=== PATIENT | female | born 1955 | race Caucasian/White ===

== ENCOUNTER 2021-04-27 17:20 | Emergency (ER) | payer MEDICARE, OTHER, SELFPAY ==
--- NOTE | 2021-04-27 17:37 | ED.WOUNDLAC ---
HPI - Wound/Laceration General Chief Complaint: Skin/Abscess/Foreign Body Stated Complaint: surgery site bleeding Time Seen by Provider: 04/27/21 17:40 Source: patient and RN notes reviewed Mode of arrival: ambulatory Limitations: no limitations History of Present Illness HPI narrative: 65-year-old female presents concern for bleeding at her surgical site. Reports yesterday she had a peritoneal dialysis catheter placed in her abdomen. Reports small amount of bleeding when she left the surgery center. Reports the bleeding continued and now is collected under the dressing. She denies any purulent drainage, inflammation. Reports she is not supposed to follow-up with her surgeon until 03 May. She denies fever, body aches. Related Data Home Medications Medication Instructions Recorded Confirmed Unable to Obtain Home Medications 04/27/21 04/27/21 Allergies Allergy/AdvReac Type Severity Reaction Status Date / Time No Known Allergies Allergy Verified 04/27/21 17:44 Review of Systems Review of Systems: CONSTITUTIONAL: Denies malaise, chills, sweats, or fever. SKIN: Reports drainage under surgical site dressing All systems reviewed & are unremarkable except as noted in HPI and below PMFSH Comments At time of signature, agree with nursing past medical, surgical, social and family history. There is no relevant family history pertinent to the presenting complaint Exam Narrative: GENERAL: Well-appearing, well-nourished, and in no acute distress. HEAD: Normocephalic EYES: PERRLA ENT: Mucous membranes moist. NECK: Supple CHEST: Clear to auscultation. No respiratory distress. HEART: Regular rate and rhythm. SKIN: Warm, dry. Intact Tegaderm noted to the abdomen with a peritoneal dialysis catheter underneath, no skin erythema, induration, swelling noted. Small collection of serosanguineous fluid noted under the dressing NEURO: Alert and oriented x3. PSYCH: Normal mood and affect Course Course Emergency Course: Original dressing left intact, reinforced with ABD pad without disturbing original dressing. Patient instructed to call her surgeon tomorrow for further instructions. Patient is aware of, understands and agrees to treatment plan. Anticipatory guidance given. Patient agrees to follow-up as directed and is aware of reasons to seek care at the emergency department. Portions of this record may have been created with voice recognition software Level of Care: Express Care Visit Vital Signs Vital signs: Reviewed. MDM - Wound/Laceration MDM Narrative Medical decision making narrative: Exam findings show no acute concerns or changes; patient is non-toxic appearing and is in no distress. Patient is appropriate for outpatient treatment and follow-up. Differential Diagnosis Differential diagnosis: Likely other (Surgical site infection, dehiscence, bleeding, drainage) Critical Care Time Critical Care Time Critical Care Time: No Discharge Plan Discharge Clinical Impression: Fluid collection at surgical site Qualifiers: Encounter type: initial encounter Qualified Code(s): T88.8XXA - Other specified complications of surgical and medical care, not elsewhere classified, initial encounter Patient Disposition: Home, Self-Care Condition: Stable Instructions: General Patient Instructions Additional Instructions: Your dressing was reinforced, try to leave the original dressing undisturbed until he can follow-up with your surgeon. If you have any urgent concerns please go to the emergency room. Prescriptions: No Action Unable to Obtain Home Medications RF: 0 Follow-up/Referrals: UNKNOWN,DOCTOR [Primary Care Provider] - Time of Disposition: 17:53
[2021-04-27 17:38] VITALS: BP 104/75; PULSE 89; RESP 18; TEMP 36.6; O2SAT 100
== END 2021-04-27 17:56 | disposition home or self-care (01) ==
PROVIDERS: Emergency Provider Nurse Practitioner
DX: T88.8XXA Other specified complications of surgical and medical care, not elsewhere classified, initial encounter (principal); Z99.2 Dependence on renal dialysis; N18.6 End stage renal disease
CPT/HCPCS: 99212; G0463

== ENCOUNTER 2022-04-18 08:51 | Emergency (ER) | payer MEDICARE, OTHER, SELFPAY ==
[2022-04-18 09:09] VITALS: BP 129/88; PULSE 88; RESP 18; TEMP 36.1; O2SAT 100
--- NOTE | 2022-04-18 09:21 | ED.FEMALEGU ---
HPI - Female Genitourinary General Chief complaint: Urogenital-Female Stated complaint: uti complaint Time Seen by Provider: 04/18/22 09:21 Source: patient Mode of arrival: ambulatory Limitations: no limitations History of Present Illness HPI Narrative: 66-year-old female presents with complaint of urinary pressure, dysuria, frequency for 2-3 days. Afebrile. No flank pain. Denies abdominal pain. Patient is stage 4 kidney disease. Reports no history of urinary tract infection in the past. All systems reviewed and negative except as noted above. Related Data Allergies Allergy/AdvReac Type Severity Reaction Status Date / Time No Known Allergies Allergy Verified 04/18/22 09:04 Review of Systems Review of Systems: CONSTITUTIONAL: Denies fever, chills, or sweats. EYES: Denies visual changes, redness, or discharge. ENT: Denies rhinorrhea, congestion, sore throat, or otalgia. CARDIOVASCULAR: Denies chest pain, palpitations, or edema. RESPIRATORY: Denies cough or dyspnea. GASTROINTESTINAL: Denies abdominal pain, nausea, vomiting, or diarrhea. GENITOURINARY: Reports dysuria, bladder pressure. Denies hematuria. SKIN: Denies rash or itching. MUSCULOSKELETAL: Denies back pain, joint pain, or myalgia. NEUROLOGIC: Denies headache, numbness, or weakness. PSYCHIATRIC: Denies anxiety or depression. All other systems reviewed are negative, except as documented in HPI. PMFSH Comments At time of signature, agree with nursing past medical, surgical, social and family history. There is no relevant family history pertinent to the presenting complaint. Exam Narrative: GENERAL: This is a well-nourished, well-developed patient, in no apparent distress. HEAD: normocephalic, atraumatic. EYES: PERRL. Sclera clear/white. Vision is grossly intact. EARS: External ears normal NOSE: External nose normal NECK: Neck supple, non-tender without lymphadenopathy, masses or thyromegaly. CARDIOVASCULAR: Regular rate and rhythm without murmurs, gallops, or rubs. RESPIRATORY: Clear to auscultation. Breath sounds equal bilaterally. No wheezes, rales, or rhonchi. SKIN: warm, Dry, intact with no suspicious lesions or rash, good texture and turgor. NEURO: awake, alert, and oriented to person, place and time. There were no obvious focal neurologic abnormalities. EXTREMITIES: No joint tenderness, effusion, or edema noted. BACK: No CVA tenderness. Course Course Level of Care: Express Care Visit Vital Signs Vital signs: Vital Signs Temperature 36.1 C L 04/18/22 09:09 Pulse Rate 88 04/18/22 09:09 Respiratory Rate 18 04/18/22 09:09 Blood Pressure 129/88 04/18/22 09:09 Pulse Oximetry 100 04/18/22 09:09 Oxygen Delivery Room Air 04/18/22 09:09 Temperature 36.1 C L 04/18/22 09:09 Pulse Rate 88 04/18/22 09:09 Respiratory Rate 18 04/18/22 09:09 Blood Pressure 129/88 04/18/22 09:09 Pulse Oximetry 100 04/18/22 09:09 Oxygen Delivery Room Air 04/18/22 09:09 reviewed MDM - Female Genitourinary MDM Narrative Medical decision making narrative: Patient is aware of diagnosis, understands and agrees to treatment plan. Anticipatory guidance given. Patient agrees to follow-up as directed and is aware of reasons to seek care at the emergency department. Portions of this record may have been created with voice recognition software Lab Data Labs: Urine Glucose Negative Reference Range: Negative Urine Glucose Negative Reference Range: Negative Urine Bilirubin 1+ Reference Range: Negative Urine Bilirubin 1+ Reference Range: Negative Urine Ketone Negative Reference Range: Negative Ur
== END 2022-04-18 09:28 | disposition home or self-care (01) ==
PROVIDERS: Emergency Provider Nurse Practitioner Family
DX: N39.0 Urinary tract infection, site not specified (principal); E78.00 Pure hypercholesterolemia, unspecified; I12.9 Hypertensive chronic kidney disease with stage 1 through stage 4 chronic kidney disease, or unspecified chronic kidney disease; N18.4 Chronic kidney disease, stage 4 (severe); Z99.2 Dependence on renal dialysis; K21.9 Gastro-esophageal reflux disease without esophagitis; M19.90 Unspecified osteoarthritis, unspecified site; F41.9 Anxiety disorder, unspecified; F32.A Depression, unspecified
CPT/HCPCS: 81003; 87077; 87086; 87186; 99213; G0463

== ENCOUNTER 2022-04-23 13:04 | Emergency (ER) | payer MEDICARE, OTHER, SELFPAY ==
--- NOTE | ~2022-04-23 | XR_ITS ---
EXAM: XR knee RT min 4V DATE: 04/23/2022 14:32 HISTORY: sudden onset of right knee pain . COMPARISON: None available. FINDINGS: Decreased mineralization. No fracture or dislocation. No lytic or blastic lesion. Mild tri compartmental osteoarthritic change. Quadriceps enthesopathy. No erosion or periosteal change. Vascul ar calcifications. Small volume joint fluid. IMPRESSION: No acute osseous finding in the right knee. Reviewed, dictated and finalized at location K. 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
[2022-04-23 13:43] VITALS: BP 134/84; PULSE 79; RESP 18; TEMP 36.7; O2SAT 100
--- NOTE | 2022-04-23 14:06 | ED.GENADULT ---
HPI - General Adult General Chief complaint: Extremity Injury, Lower Stated complaint: rt knee pain Time Seen by Provider: 04/23/22 14:06 Source: patient Mode of arrival: ambulatory Limitations: no limitations History of Present Illness HPI narrative: 66-year-old female patient presents to the [facility] with complaints of right knee pain. patient states she went to bed last night without any issues a couple night and trying to stand up and had a some right knee pain since the point where she can barely stand up and walk. Patient states the same symptoms happened again this morning when she tried to get up. Patient states she has had the use her walker for a little while this morning to get around. Patient states that the pain and mobility did not get better as she was up walking around. Denies taking anything for pain. Patient also states that she has noticed some swelling to the right knee. Denies any recent trauma that she is aware of. Patient does have history of osteoarthritis to the hands and has had a left shoulder replacement due to osteoarthritis. Related Data Home Medications Medication Instructions Recorded Confirmed atenolol 25 mg tablet 25 mg PO DAILY 04/18/22 04/23/22 atorvastatin 20 mg tablet 20 mg PO DAILY 04/18/22 04/23/22 bupropion HCl 150 mg 24 hr tablet, 150 mg PO QAM 04/18/22 04/23/22 extended release (Wellbutrin XL) loratadine 10 mg tablet (Claritin) 10 mg PO DAILY 04/18/22 04/23/22 Allergies Allergy/AdvReac Type Severity Reaction Status Date / Time No Known Allergies Allergy Verified 04/23/22 13:48 Review of Systems Review of Systems: CONSTITUTIONAL: Denies fever, chills, or sweats. EYES: Denies visual changes, redness, or discharge. ENT: Denies rhinorrhea, congestion, sore throat, or otalgia. CARDIOVASCULAR: Denies chest pain, palpitations, or edema. RESPIRATORY: Denies cough or dyspnea. GASTROINTESTINAL: Denies abdominal pain, nausea, vomiting, or diarrhea. GENITOURINARY: Denies dysuria or hematuria. SKIN: Denies rash or itching. MUSCULOSKELETAL: Denies back pain, joint pain, or myalgia. Positive right knee pain NEUROLOGIC: Denies headache, numbness, or weakness. PSYCHIATRIC: Denies anxiety or depression. [facility] Past Medical History Medical History Chronic renal disease, stage IV Colitis Hypercholesteremia Hypertension Osteoarthritis Surgical History Surgical History H/O: hysterectomy History of left shoulder replacement History of orthopedic surgery bilateral wrist Comments At the time of my signature I agree with nursing past medical history, surgical, social, and family history. There is no relevant family history pertinent to the presenting complaint. Exam Narrative: GENERAL: Well-appearing, well-nourished, and in no acute distress. HEAD: Normocephalic, atraumatic. EYES: PERRLA and EOMI. ENT: Nares clear, no rhinorrhea or epistaxis. Mucous membranes moist. NECK: Supple. No lymphadenopathy CHEST: Clear to auscultation. No respiratory distress. HEART: Regular rate and rhythm. No murmur heard. Normal peripheral pulses. ABDOMEN: Soft, nontender, nondistended, normal active bowel sounds. EXTREMITIES: Patient is able to bear weight and ambulate with complaints pain to right knee. No surface trauma, STS, or obvious effusion. No overlying erythema or warmth. The R knee is without obvious asymmetry or deformity when compared to the L knee. Patienthas pain with deep knee bend with symmetry and fully extend knee,no pain with internal and external rotation. [place] noted to the right knee compared to the left No tendernss to palpation of the patella, possible ballottement. No tenderness over the infrapatellar tendon. No tenderness over the medial or lateral joint lone ot the medial or lateral tibial plateaus. no tenderness over the proximal fibular head. no tenderness, ful
== END 2022-04-23 15:13 | disposition home or self-care (01) ==
PROVIDERS: Emergency Provider Nurse Practitioner Family
DX: M25.461 Effusion, right knee (principal); M17.11 Unilateral primary osteoarthritis, right knee; N18.4 Chronic kidney disease, stage 4 (severe); E78.00 Pure hypercholesterolemia, unspecified; I12.9 Hypertensive chronic kidney disease with stage 1 through stage 4 chronic kidney disease, or unspecified chronic kidney disease
CPT/HCPCS: 73564; 99213; G0463

== ENCOUNTER 2022-10-19 12:00 | Emergency (ER) | payer MEDICARE, OTHER, SELFPAY ==
--- NOTE | 2022-10-19 12:07 | ED.FEMALEGU ---
HPI - Female Genitourinary General Chief complaint: Urogenital-Female Stated complaint: uti symptoms Time Seen by Provider: 10/19/22 12:07 Source: patient Mode of arrival: ambulatory Limitations: no limitations History of Present Illness HPI Narrative: Hali is a 66-year-old female patient presenting to the clinic today with complaints of possible urinary tract infection. She reports she is having some discomfort after urination and noticing a pink tint to the toilet paper when she wipes. She denies any fever, chills, body aches, flank pain, or abdominal pain. Symptoms some been going on for 1 week. Related Data Home Medications Medication Instructions Recorded Confirmed atenolol 25 mg tablet 25 mg PO DAILY 04/18/22 10/19/22 atorvastatin 20 mg tablet 20 mg PO DAILY 04/18/22 10/19/22 bupropion HCl 150 mg 24 hr tablet, 150 mg PO QAM 04/18/22 10/19/22 extended release (Wellbutrin XL) loratadine 10 mg tablet (Claritin) 10 mg PO DAILY 04/18/22 10/19/22 Allergies Allergy/AdvReac Type Severity Reaction Status Date / Time No Known Allergies Allergy Verified 10/19/22 12:18 Review of Systems Review of Systems: Pertinent positives per HPI. Patient denies any fever, chills, rash, headache, visual changes, dizziness, cough, runny nose, sore throat, shortness of breath, chest pain, palpitations, nausea, vomiting, diarrhea, constipation, or any abdominal pain. PMFSH Past Medical History Medical History Chronic renal disease, stage IV Colitis Hypercholesteremia Hypertension Osteoarthritis Surgical History Surgical History H/O: hysterectomy History of left shoulder replacement History of orthopedic surgery bilateral wrist Comments At the time of my signature, I reviewed and agree with the nursing past medical, surgical, social, and family history. There is no relevant family history pertinent to the patient complaint. Exam Narrative: General: Well-developed, well nourished, in no apparent distress. Head: Normocephalic, atraumatic. Cardio: Regular rate and rhythm, s1 and s2 normal, no murmur appreciated. Resp: Clear to auscultation bilaterally, no rhonchi, rales, wheezing or rubs. Abdomen: Soft, pliable, bowel sounds present in all quadrants, non-tender to palpation, no organomegly, no CVAT tenderness. Course Course Emergency Course: Portions of this record may have been created with voice recognition software. Level of Care: Express Care Visit Vital Signs Vital signs: Vital signs reviewed MDM - Female Genitourinary MDM Narrative Medical decision making narrative: At the time of visit patient is resting comfortably on the exam table. Urinalysis was performed and is positive for leukocytes, blood, and protein. Patient is in stage IV kidney failure. Will prescribe Bactrim b.i.d. x7 days. Supportive measures were discussed with the patient and she voiced understanding of the discharge instructions and agrees to treatment plan. Differential Diagnosis Differential diagnosis: Likely urinary tract infection and cystitis Discharge Plan Discharge Clinical Impression: Urinary tract infection Patient Disposition: Home, Self-Care Condition: Stable Instructions: Antibiotic Form, Urinary Tract Infection in Older Adults (ED) Additional Instructions: UA positive for blood, leukocytes, and protein. We will send UA for culture. Take Bactrim as prescribed Increase fluids and stay well hydrated Wipe front to back. May use wet wipes. Avoid tub baths If sexually active- pee before and after intercourse. Wear cotton panties Avoid tight clothing up against the genitals Follow up with your PCP in 1 week if symptoms persist. Go to the emergency room if you develop high fever not controlled by Tylenol, flank pain, abdominal pain, chest pain, shortness of breath, l
[2022-10-19 12:09] VITALS: BP 116/79; PULSE 66; RESP 18; TEMP 36; O2SAT 100
== END 2022-10-19 12:25 | disposition home or self-care (01) ==
PROVIDERS: Emergency Provider Nurse Practitioner Family
DX: N39.0 Urinary tract infection, site not specified (principal); I12.0 Hypertensive chronic kidney disease with stage 5 chronic kidney disease or end stage renal disease; N18.5 Chronic kidney disease, stage 5; E78.00 Pure hypercholesterolemia, unspecified; M19.90 Unspecified osteoarthritis, unspecified site; Z96.612 Presence of left artificial shoulder joint
CPT/HCPCS: 81003; 87077; 87086; 87186; 99213; G0463

== ENCOUNTER 2023-01-30 09:44 | Emergency (ER) | payer MEDICARE, OTHER, SELFPAY ==
--- NOTE | 2023-01-30 09:48 | ED.FEMALEGU ---
HPI - Female Genitourinary General Chief complaint: Urogenital-Female Stated complaint: Female Urogenital Time Seen by Provider: 01/30/23 09:59 Source: patient, RN notes reviewed and old records reviewed Mode of arrival: ambulatory Limitations: no limitations History of Present Illness HPI Narrative: 67-year-old female presents to the [facility] with concerns for a UTI. Patient reports frequency and urgency. States that it feels like she is not emptying her bladder. Had UTI in October of this year as well as last March. Denies any CVA tenderness. Denies chest pain or abdominal pain. Denies nausea vomiting diarrhea. Denies fevers. Symptoms started Sunday, 4 days ago. Has tried drinking cranberry juice to help with symptoms with no relief History of hypertension and stage 4 kidney disease Onset (ago): day(s) (4) Related Data Home Medications Medication Instructions Recorded Confirmed atenolol 25 mg tablet 25 mg PO DAILY 04/18/22 01/30/23 atorvastatin 20 mg tablet 20 mg PO DAILY 04/18/22 01/30/23 bupropion HCl 150 mg 24 hr tablet, 150 mg PO QAM 04/18/22 01/30/23 extended release (Wellbutrin XL) loratadine 10 mg tablet (Claritin) 10 mg PO DAILY 04/18/22 01/30/23 Allergies Allergy/AdvReac Type Severity Reaction Status Date / Time No Known Allergies Allergy Verified 01/30/23 09:46 Review of Systems Review of Systems: All systems reviewed & are unremarkable except as noted in HPI and below Constitutional: Constitutional: Reports no additional constitutional complaints Eyes: Eyes: Reports no additional eye complaints ENT: Reports system reviewed and no additional complaints, except as documented Cardiovascular: Cardiovascular: Reports no additional cardiovascular complaints, Denies chest pain and Denies dyspnea Respiratory: Respiratory: Reports no additional respiratory complaints, Denies chest congestion, Denies cough and Denies dyspnea Gastrointestinal: Gastrointestinal: Reports no additional gastrointestinal complaints, Denies abdominal pain, Denies nausea and Denies vomiting Genitourinary: Genitourinary: Reports as per HPI Musculoskeletal: Musculoskeletal: Reports no additional musculoskeletal complaints Integumentary/Breasts: Skin/Breast: Reports system reviewed and no additional complaints, except as docu Neurologic: Reports system reviewed and no additional complaints, except as documented Psychiatric: Psychiatric: Reports no additional psychiatric complaints Allergic/Immunologic: Allergic/Immunologic: Reports no additional allergic/immunologic complaints PMFSH Past Medical History Medical History Chronic renal disease, stage IV Colitis Hypercholesteremia Hypertension Osteoarthritis Surgical History Surgical History H/O: hysterectomy History of left shoulder replacement History of orthopedic surgery bilateral wrist Comments At the time of my signature, I reviewed and agree with the nursing past medical, surgical, social, and family history. There is no relevant family history pertinent to the patient complaint. Exam Const: General: cooperative, healthy appearing, comfortable, no acute distress, well developed, alert and well nourished Nutritional Appearance: well nourished Orientation/consciousness: patient oriented x3 Limitations: no limitations HENMT: Head: normal to inspection Ears: hearing grossly normal bilaterally and external ears normal Face/Nose/Sinus: Normal external nose present, Normal nares present, Normal nasal mucous membranes and turbinates present, normal facial exam and face symmetric Face and sinus: normal facial exam and face symmetric Mouth: Yes lip normal and Yes moist mucous membranes Eyes: General: appearance normal, both eyes and all related structures Alignment and Position: alignment normal Periorbital: periorbital findings normal Pupils: Equal,
[2023-01-30 09:56] VITALS: BP 123/83; PULSE 72; RESP 16; TEMP 36.2; O2SAT 100
== END 2023-01-30 10:33 | disposition home or self-care (01) ==
PROVIDERS: Emergency Provider Nurse Practitioner
DX: N30.01 Acute cystitis with hematuria (principal); I12.0 Hypertensive chronic kidney disease with stage 5 chronic kidney disease or end stage renal disease; N18.5 Chronic kidney disease, stage 5; E78.00 Pure hypercholesterolemia, unspecified; M19.90 Unspecified osteoarthritis, unspecified site; Z96.612 Presence of left artificial shoulder joint
CPT/HCPCS: 81003; 87086; 99213; G0463

== ENCOUNTER 2024-02-23 14:05 | Inpatient (IN) | payer MEDICARE, OTHER, SELFPAY ==
[2024-02-23] VITALS (13 sets, daily range): BP systolic 115–130; BP diastolic 69–84; PULSE 67–83; RESP 11–20; TEMP 36.6–36.8; O2SAT 90–100; BMI 22.1; BMI 23.4
--- NOTE | ~2024-02-23 | CT_ITS ---
EXAMINATION: CT cervical spine wo con DATE: 02/23/2024 15:27 INDICATION: fall TECHNIQUE: Computed tomography (CT) of the cervical spine was performed without intravenous contrast. Automated exposure control and iterative reconstruction technique were employed. The dose-length pro duct was 230.63 mGy-cm. COMPARISON: None. FINDINGS: Vertebral Body Alignment: Trace anterolistheses at C6-7 and C7-T1, likely on a degenerative basis. Craniocervical and atlantoaxial alignment: Moderate degenerative change. Alignment intact. Osseous structures/fracture: No evidence of a lytic or blastic process in the visualized spine. No e vidence of acute fracture. Multilevel facet fusions. Cervical soft tissues: The paraspinal soft tissues planes are maintained. Degenerative changes: Degenerative changes, without severe neural foraminal or central canal narrowin g. IMPRESSION: No acute fracture or traumatic malalignment in the cervical spine. Reviewed, dictated and finalized at location K. E TESTER
--- NOTE | ~2024-02-23 | CT_ITS ---
EXAMINATION: CT abdomen pelvis wo con DATE: 02/23/2024 18:40 INDICATION: leukocytosis, renal lesion TECHNIQUE: Computed tomography (CT) of the abdomen and pelvis was performed without intravenous contr ast. Automated exposure control and iterative reconstruction technique were employed. The dose-length product was 267.52 mGy-cm. COMPARISON: X-ray pelvis and right hip, same date. FINDINGS: Lower thorax: Mild dependent scar/atelectasis. Coronary artery calcification. Liver: Normal. Biliary/Gallbladder: Gallbladder is normal. No bile duct dilation. Pancreas: No mass or duct dilation. Spleen: Normal. Adrenals:No mass. Kidneys: Medullary nephrocalcinosis. No obstructing calcification. Lobular contour of the medial left upper/mid pole. Suggestion of an indeterminate density 3.0 cm right lower pole lesion. Simple right upper and mid pole cysts. Moderate perinephric stranding GI tract: No small or large bowel dilation. Appendix not confidently visualized. Mesentery/Peritoneum: No ascites, mass, or free air. Retroperitoneum: No mass. Atherosclerotic abdominal aortic and/or arterial calcifications. Pelvis: Normal urinary bladder. Ovaries and uterus not identified. Soft Tissues: Soft tissues and body wall unremarkable. Bones: No acute osseous finding. Suggestion of mild diffuse osseous sclerosis. IMPRESSION: No acute abdominopelvic process detected. No pelvic fracture identified, prior radiograph findings likely related to artifact Possible bilateral renal lesions, may represent hemorrhagic/proteinaceous cysts, other renal mass, or artifact. Given renal function, consider nonemergent but timely renal MRI without and with contrast. Suggestion of mild diffuse osseous sclerosis as can be seen with myelofibrosis, mastocytosis, leukemi a, lymphoma, sickle cell anemia, metabolic processes such as renal osteodystrophy and others entities . Reviewed, dictated and finalized at location K. RECORDER IMPRESSION: No acute abdominopelvic process detected. No pelvic fracture identified, prior radiograph findings likely related to amilcar fact Possible bilateral renal lesions, may represent hemorrhagic/proteinaceous cysts , other renal mass, or artifact. Given renal function, consider nonemergent but timely renal MRI without and with contrast. Suggestion of mild diffuse osseous sclerosis as can be seen with myelofibrosis, mastocytosis, leukemia, lymphoma, sickle cell anemia, metabolic processes such as renal osteodystrophy and others entities.
--- NOTE | ~2024-02-23 | XR_ITS ---
EXAM: XR hip RT 2V w AP pelvis DATE: 02/23/2024 15:18 HISTORY: fall . COMPARISON: None available. FINDINGS: Decreased mineralization. Suggestion of cortical irregularity along the right inferior pub ic ramus. No lytic or blastic lesion. Scattered enthesopathy. Mild bilateral hip osteoarthritis. Radha re lumbar degenerative disc disease. No erosion or periosteal change. Soft tissues within normal limi ts. IMPRESSION: Possible nondisplaced right obturator ring fracture. Reviewed, dictated and finalized at location K. CAL SCIENTIST
--- NOTE | ~2024-02-23 | NM_ITS ---
EXAMINATION: NM bone scan whole body DATE: 02/25/2024 14:19 INDICATION: Sclerosis of bone. TECHNIQUE: 24.2 mCi Tc-99m HDP was administered intravenously. Delayed whole-body scintigrams were o btained. COMPARISON: CT abdomen and pelvis 02/23/2024 FINDINGS: There is disc-centered increased activity in lumbar spine correlating with severe degenerat jm disc disease by CT. There is joint-centered increased activity in the wrists and left hand withou t radiographic comparison, likely osteoarthritis. IMPRESSION: 1. No specific evidence of malignancy. Reviewed, dictated and finalized at location A. ING QUALITY STANDARD INSPECTOR
--- NOTE | ~2024-02-23 | XR_ITS ---
EXAMINATION: XR chest 2V Exam Date/Time: 02/23/2024 15:05 NEWS COMMENTATOR HISTORY: weakness Comparison: None. RESULT: Lines, tubes, and devices: Partially visualized left shoulder arthroplasty hardware. Lungs and pleura: Senescent changes. Minimal bibasilar scar. Cardiomediastinal silhouette: Stable. Other: No acute osseous or upper abdominal finding. IMPRESSION: No acute cardiopulmonary process. Reviewed, dictated and finalized at location K. COMMENTATOR
--- NOTE | ~2024-02-23 | CT_ITS ---
EXAMINATION: CT brain wo con DATE: 02/23/2024 15:22 INDICATION: fall . TECHNIQUE: Computed tomography (CT) of the head was performed without intravenous contrast. The mA wa s adjusted according to patient size. Iterative reconstruction technique was employed. The dose-lengt h product was 605.33 mGy-cm. COMPARISON: None. FINDINGS: No acute intracranial hemorrhage or extra-axial fluid collection. No hydrocephalus, mass, or herniation. No acute ischemic infarct. Unremarkable dural venous sinus attenuation. No acute osseous abnormality. The aerated spaces are clear. Extensive bilateral basal ganglia and thalamic calcification. Focal cortical hyperdensities in the fr ontal lobes, likely additional parenchymal site of calcification. Bilateral cerebellar parenchymal ca lcification/laminar necrosis. Mild atrophy. Moderate chronic white matter change. Right lens replacem ent. Atherosclerotic intracranial calcifications. IMPRESSION: No acute intracranial process. Reviewed, dictated and finalized at location K. LESS TEAM MEMBER
--- NOTE | ~2024-02-23 | CT_ITS ---
EXAMINATION: CT lumbar spine wo con DATE: 02/23/2024 15:27 INDICATION: low back pain, fall . TECHNIQUE: Computed tomography (CT) of the lumbar spine was performed without intravenous contrast. A utomated exposure control and iterative reconstruction technique were employed. The dose-length produ ct was 657.07 mGy-cm. COMPARISON: None. FINDINGS: 5 nonrib-bearing lumbar-type vertebral bodies. Pedicles intact. Normal vertebral body align ment. Vertebral body heights preserved. Multilevel severe degenerative disc disease. Multilevel moder ate facet arthropathy. No severe central canal or neural foraminal narrowing. Medullary nephrocalcino sis. Atherosclerotic calcifications. Simple right midpole cyst. Indeterminate density left midpole le magdalena measuring approximately 2 cm. IMPRESSION: No acute fracture or traumatic malalignment in the lumbar spine. Indeterminate density left renal lesion versus lobulated renal contour. Recommend nonemergent but elizabeth kel[facility] outpatient CT or MRI without and with contrast for further evaluation. Reviewed, dictated and finalized at location K. ATTENDANT IMPRESSION: No acute fracture or traumatic malalignment in the lumbar spine. Indeterminate density left renal lesion versus lobulated renal contour. Recomme nd nonemergent but timely outpatient CT or MRI without and with contrast for fu rther evaluation.
--- NOTE | 2024-02-23 14:39 | ECG_ITS ---
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
--- NOTE | 2024-02-23 14:47 | ED.FALL ---
HPI - Fall General Chief Complaint: Fall <GLYNN Hill Last Filed: 02/23/24 20:34> Stated Complaint: fall <GLYNN Hill Last Filed: 02/23/24 20:34> Time Seen by Provider: 02/23/24 14:12 <GLYNN Hill Last Filed: 02/23/24 20:34> Source: patient <GLYNN Hill Last Filed: 02/23/24 20:34> Mode of arrival: EMS <GLYNN Hill Last Filed: 02/23/24 20:34> Limitations: no limitations <GLYNN Hill Last Filed: 02/23/24 20:34> History of Present Illness HPI Narrative: This is a 68-year-old female that presents to the emergency department for frequent falls. Patient recently moved from assisted living at her facility to independent living. She has had a lot of falls since. Unsure of what is causing her to fall. Reports sometimes she loses her balance. Sometimes she feels lightheaded. Reporting some pain in her hip and low back. Denies chest pain, shortness of breath, abdominal pain, vomiting, focal numbness or weakness. <GLYNN Hill Last Filed: 02/23/24 20:34> Related Data Home Medications: Home Medications Medication Instructions Recorded Confirmed atenolol 25 mg tablet 25 mg PO DAILY 04/18/22 02/24/24 atorvastatin 20 mg tablet 20 mg PO HS 04/18/22 02/24/24 bupropion HCl 150 mg 24 hr tablet, 150 mg PO DAILY 04/18/22 02/24/24 extended release (Wellbutrin XL) loratadine 10 mg tablet (Claritin) 10 mg PO DAILY PRN Allergy Symptoms 04/18/22 02/24/24 <GLYNN Hill Last Filed: 02/23/24 20:34> Allergies/Adverse Reactions: Allergies Allergy/AdvReac Type Severity Reaction Status Date / Time No Known Allergies Allergy Verified 02/23/24 14:24 <GLYNN Hill Last Filed: 02/23/24 20:34> Review of Systems Review of Systems: CONSTITUTIONAL: Denies fever EYES: Denies visual changes CARDIOVASCULAR: Denies chest pain RESPIRATORY: Denies dyspnea. GASTROINTESTINAL: Denies abdominal pain, nausea, vomiting MUSCULOSKELETAL: Reports back pain, joint pain, and myalgia. NEUROLOGIC: Reports generalized weakness. Denies headache, numbness <Marsha Frye PA-C - Last Filed: 02/23/24 20:34> All systems reviewed & are unremarkable except as noted in HPI and below <Marsha Frye PA-C - Last Filed: 02/23/24 20:34> PMFSH Past Medical History Medical History: Medical History (Updated 02/24/24 @ 12:50 by Kvng Smith NP) Chronic renal disease, stage IV Colitis Hypercholesteremia Hypertension Osteoarthritis <Marsha Frye PA-C - Last Filed: 02/23/24 20:34> Surgical History Surgical History: Surgical History H/O: hysterectomy History of left shoulder replacement History of orthopedic surgery bilateral wrist <Marsha Frye PA-C - Last Filed: 02/23/24 20:34> Social History Social History: Social History (Updated 02/23/24 @ 14:51 by Marsha Frye PA-C) Alcohol intake: never Substance use: never Substance use type: does not use Do You Feel Safe in your Home?: Yes Lack of Transportation: No Lack of Food: Never True Current Housing: I Have Housing Concerned About Future Housing: No Difficulty Paying Gas/Electric Bills: No Difficulty Paying for Meds: No Currently Unemployed: No Education: High School Diploma/GED Difficulty w/ Childcare or Family Care: No Spiritual care concerns: No <Marsha Frye PA-C - Last Filed: 02/23/24 20:34> Exam Narrative: GENERAL: Well-appearing, well-nourished, and in no acute distress. HEAD: Normocephalic. Healing laceration to the lip EYES: PERRLA and EOMI. ENT: Nares clear, no rhinorrhea or epistaxis. Mucous membranes moist. Oropharynx without tonsillar hypertrophy exudate or other lesions. Bilateral TMs pearly odell non-bulging NECK: Supple. No adenopathy or masses. CHEST: Clear to auscultation. No respiratory distress. No wheezes rales or rhonchi HEART: Regular rate and rhythm. No murmur heard. Normal peripheral pulses. ABDOMEN: Soft, nontender, nondistended, normal active bowel sounds. EXTREMITIES: Normal range of motion. No edema. SKIN: Warm, dry, no rash. Bruising in various stages of healing over the body. NEURO: No focal deficits. Alert and oriented x3. PSYCH: Normal mood and affect <Marsha Frye PA-C - Last Filed: 02/23/24 20:34> Course Course Emergency Course: patient updated on her workup and recommendation for admission <Marsha Frye PA-C - Last Filed: 02/23/24 20:34> RANGE ECOLOGIST/PA Physician Supervision For this patient encounter, I reviewed the RANGE ECOLOGIST or PA documentation, treatment plan, and medical decision making; and I had [id number] time with this patient. <Dony Madden MD - Last Filed: 02/24/24 16:39> Consultations Consultation #1: spoke with hospitalist about patient and workup who accepts admission <Marsha Frye PA-C - Last Filed: 02/23/24 20:34> Date: 02/23/24 <Marsha Frye PA-C - Last Filed: 02/23/24 20:34> Vital Signs Vital signs: Vital Signs Temperature 97.8 F 02/23/24 14:05 Pulse Rate 73 02/23/24 14:05 Respiratory Rate 16 02/23/24 14:05 Blood Pressure 130/70 02/23/24 14:05 Pulse Oximetry 100 02/23/24 14:05 Oxygen Delivery Room Air 02/23/24 14:05 Temperature 97.3 F L 02/24/24 14:00 Pulse Rate 79 02/24/24 14:00 Respiratory Rate 20 02/24/24 14:00 Blood Pressure 109/62 02/24/24 14:00 Pulse Oximetry 99 02/24/24 14:00 Oxygen Delivery Room Air 02/24/24 09:27 <Marsha Frye PA-C - Last Filed: 02/23/24 20:34> Vital Signs Temperature 97.8 F 02/23/24 14:05 Pulse Rate 73 02/23/24 14:05 Respiratory Rate 16 02/23/24 14:05 Blood Pressure 130/70 02/23/24 14:05 Pulse Oximetry 100 02/23/24 14:05 Oxygen Delivery Room Air 02/23/24 14:05 Temperature 97.3 F L 02/24/24 14:00 Pulse Rate 79 02/24/24 14:00 Respiratory Rate 20 02/24/24 14:00 Blood Pressure 109/62 02/24/24 14:00 Pulse Oximetry 99 02/24/24 14:00 Oxygen Delivery Room Air 02/24/24 09:27 <Dony Madden MD - Last Filed: 02/24/24 16:39> MDM - Fall MDM Narrative Medical decision making narrative: patient presents to the emergency department for frequent falls from her independent living facility. She is afebrile and nontoxic appearing. Her vitals are stable. CBC with leukocytosis to 28. Shows normocytic anemia with hemoglobin of 9.7. Metabolic panel with evidence of likely patient has end-stage renal disease. I do not have any recent blood work for comparison. Urine with evidence of infection. This will be sent for culture. Patient started on IV antibiotics. CT brain and cervical spine without acute findings. Chest x-ray without acute cardiopulmonary abnormality. CT lumbar spine without acute fracture or traumatic malalignment. Shows an indeterminate density left renal lesion. CT abdomen and pelvis is without acute findings. Previously seen possible pelvic fracture likely artifact. Once again shows renal lesions. Suggestion of mild diffuse osseous sclerosis. Patient was updated on workup and recommendation for admission. spoke with hospitalist about patient and workup who accepts admission <Marsha Frye PA-C - Last Filed: 02/23/24 20:34> Differential Diagnosis Differential diagnosis: Likely compression fracture, concussion without loss of consciousness and other (acute UTI, chronic kidney disease, intra-abdominal infection, pelvic fracture, hip fracture, pneumonia) <Marsha Frye PA-C - Last Filed: 02/23/24 20:34> Lab Data Attestation: I reviewed the patient's lab results. <Marsha Frye PA-C - Last Filed: 02/23/24 20:34> Result diagrams: 02/24/24 09:25 02/24/24 09:25 <Marsha Frye PA-C - Last Filed: 02/23/24 20:34> Labs: Lab Results 02/23/24 02/23/24 Range/Units 14:58 16:32 WBC 28.0 H (4.5-10.0) K/mm3 RBC 3.05 L (4.2-5.4) M/mm3 Hgb 9.7 L (12.0-15.0) g/dL Hct 28.7 L (37.0-47.0) % MCV 94.1 (80-100) fl MCH 31.8 (26-34) pg MCHC 33.8 (32-36) g/dl RDW 13.9 (11.5-14.5) % Plt Count 285 (150-375) k/mm3 MPV 11.0 H (7.4-10.4) fl Immature Gran % (Auto) Not Reportable Neut % (Auto) Not Reportable Lymph % (Auto) Not Reportable Pettis % (Auto) Not Reportable Eos % (Auto) Not Reportable Baso % (Auto) Not Reportable Lymph # (Auto) Not Reportable [place] # (Auto) Not Reportable Eos # (Auto) Not Reportable Baso # (Auto) Not Reportable Abs Immat Gran (auto) Not Reportable Absolute Neuts (auto) Not Reportable Absolute Nucleated RBC Not Reportable Total Counted 100 Neutrophils % (Manual) 89 H (46-73) % Lymphocytes % (Manual) 2.0 L (18-44) % Monocytes % (Manual) 9 (3-9) % Nucleated RBC % Not Reportable Abs Lymphs (Manual) 0.56 L (1.1-4.5) K/mm3 Abs Monocytes (Manual) 2.52 H (0.1-0.90) K/mm3 Platelet Estimate Adequate (Adequate) Schistocytes None seen PT 14.6 (11.1-14.7) Seconds INR 1.1 APTT 27.5 (22.3-36.8) Seconds Sodium 131 L (137-145) mmol/L Potassium 3.8 (3.4-5.0) mmol/L Chloride 95 L (98-107) mmol/L Carbon Dioxide 22 (22-30) mmol/L Anion Gap 14 H (4-12) mmol/L BUN 63 H (7-17) mg/dL Creatinine 2.80 H (0.7-1.0) mg/dL Estim Creat Clear Calc 15 ml/min Estimated GFR 17 L (59 - ) Glucose 143 H (65-110) mg/dL Calcium 6.6 L (8.4-10.2) mg/dL Total Bilirubin 0.8 (0.2-1.3) mg/dL AST 53 H (14-36) U/L ALT 35 (6-35) U/L Alkaline Phosphatase 139 H (38-126) U/L Total Protein 7.0 (6.3-8.2) g/dL Albumin 3.4 L (3.5-5.1) g/dL Urine Color Yellow (Yellow) Urine Appearance Cloudy H (Clear) Urine pH 5.5 (5.0-9.0) Ur Specific [place] 1.008 (1.001-1.035) Urine Protein 1+ H (Negative) mg/dL Urine Glucose (UA) Negative (Negative) mg/dL Urine Ketones Negative (Negative) mg/dL Ur Blood (Man) 2+ H (Negative) Urine Nitrate Negative (Negative) Urine Bilirubin Negative (Negative) Urine Urobilinogen 0.2 (<2.0) mg/dL Add Ur Microanalysis Reviewed Leukocyte Esterase Rfl 3+ H (Negative) CHANCE/UL Urine RBC 0-2 (0-2) /hpf Urine WBC >100 H (0-3) /hpf Ur Squamous Epith Cells None seen (Few) /hpf Urine Bacteria Rare /hpf Urine Casts 0-2 <Marsha Frye PA-C - Last Filed: 02/23/24 20:34> Lab Results 02/23/24 02/23/24 Range/Units 14:58 16:32 WBC 28.0 H (4.5-10.0) K/mm3 RBC 3.05 L (4.2-5.4) M/mm3 Hgb 9.7 L (12.0-15.0) g/dL Hct 28.7 L (37.0-47.0) % MCV 94.1 (80-100) fl MCH 31.8 (26-34) pg MCHC 33.8 (32-36) g/dl RDW 13.9 (11.5-14.5) % Plt Count 285 (150-375) k/mm3 MPV 11.0 H (7.4-10.4) fl Immature Gran % (Auto) Not Reportable Neut % (Auto) Not Reportable Lymph % (Auto) Not Reportable Pettis % (Auto) Not Reportable Eos % (Auto) Not Reportable Baso % (Auto) Not Reportable Lymph # (Auto) Not Reportable Pettis # (Auto) Not Reportable Eos # (Auto) Not Reportable Baso # (Auto) Not Reportable Abs Immat Gran (auto) Not Reportable Absolute Neuts (auto) Not Reportable Absolute Nucleated RBC Not Reportable Total Counted 100 Neutrophils % (Manual) 89 H (46-73) % Lymphocytes % (Manual) 2.0 L (18-44) % Monocytes % (Manual) 9 (3-9) % Nucleated RBC % Not Reportable Abs Lymphs (Manual) 0.56 L (1.1-4.5) K/mm3 Abs Monocytes (Manual) 2.52 H (0.1-0.90) K/mm3 Platelet Estimate Adequate (Adequate) Schistocytes None seen PT 14.6 (11.1-14.7) Seconds INR 1.1 APTT 27.5 (22.3-36.8) Seconds Sodium 131 L (137-145) mmol/L Potassium 3.8 (3.4-5.0) mmol/L Chloride 95 L (98-107) mmol/L Carbon Dioxide 22 (22-30) mmol/L Anion Gap 14 H (4-12) mmol/L BUN 63 H (7-17) mg/dL Creatinine 2.80 H (0.7-1.0) mg/dL Estim Creat Clear Calc 15 ml/min Estimated GFR 17 L (59 - ) Glucose 143 H (65-110) mg/dL Calcium 6.6 L (8.4-10.2) mg/dL Total Bilirubin 0.8 (0.2-1.3) mg/dL AST 53 H (14-36) U/L ALT 35 (6-35) U/L Alkaline Phosphatase 139 H (38-126) U/L Total Protein 7.0 (6.3-8.2) g/dL Albumin 3.4 L (3.5-5.1) g/dL Urine Color Yellow (Yellow) Urine Appearance Cloudy H (Clear) Urine pH 5.5 (5.0-9.0) Ur Specific [place] 1.008 (1.001-1.035) Urine Protein 1+ H (Negative) mg/dL Urine Glucose (UA) Negative (Negative) mg/dL Urine Ketones Negative (Negative) mg/dL Ur Blood (Man) 2+ H (Negative) Urine Nitrate Negative (Negative) Urine Bilirubin Negative (Negative) Urine Urobilinogen 0.2 (<2.0) mg/dL Add Ur Microanalysis Reviewed Leukocyte Esterase Rfl 3+ H (Negative) CHANCE/UL Urine RBC 0-2 (0-2) /hpf Urine WBC >100 H (0-3) /hpf Ur Squamous Epith Cells None seen (Few) /hpf Urine Bacteria Rare /hpf Urine Casts 0-2 <Dony Madden MD - Last Filed: 02/24/24 16:39> Imaging Data Radiologist's impression: ITS Impressions Head CT 02/23/24 15:26 IMPRESSION: No acute intracranial process. Chest X-Ray 02/23/24 15:38 IMPRESSION: No acute cardiopulmonary process. Hip/Pelvis X-Ray 02/23/24 15:42 IMPRESSION: Possible nondisplaced right obturator ring fracture. Cervical Spine CT 02/23/24 15:59 IMPRESSION: No acute fracture or traumatic malalignment in the cervical spine. Lumbar Spine CT 02/23/24 16:15 IMPRESSION: No acute fracture or traumatic malalignment in the lumbar spine. Indeterminate density left renal lesion versus lobulated renal contour. Recommend nonemergent but timely outpatient CT or MRI without and with contrast for further evaluation. Abdomen/Pelvis CT 02/23/24 18:46 IMPRESSION: No acute abdominopelvic process detected. No pelvic fracture identified, prior radiograph findings likely related to artifact Possible bilateral renal lesions, may represent hemorrhagic/proteinaceous cysts, other renal mass, or artifact. Given renal function, consider nonemergent but timely renal MRI without and with contrast. Suggestion of mild diffuse osseous sclerosis as can be seen with myelofibrosis, mastocytosis, leukemia, lymphoma, sickle cell anemia, metabolic processes such as renal osteodystrophy and others entities. <Marsha Frye PA-C - Last Filed: 02/23/24 20:34> ECG Data EKG #1: ECG completion date: 02/23/24 <Marsha Frye PA-C - Last Filed: 02/23/24 20:34> EKG Interpretation: normal rate, sinus rhythm, no ST changes and normal QT <Marsha Frye PA-C - Last Filed: 02/23/24 20:34> Critical Care Time Critical Care Time Critical Care Time: No <Marsha Frye PA-C - Last Filed: 02/23/24 20:34> Discharge Plan Discharge Clinical Impression: Acute UTI, Renal cyst Chronic kidney disease (CKD) Qualifiers: Chronic kidney disease stage: stage 4 (severe) Qualified Code(s): N18.4 - Chronic kidney disease, stage 4 (severe) <Marsha Frye PA-C - Last Filed: 02/23/24 20:34> Patient Disposition: Still a Patient <GLYNN Hill Last Filed: 02/23/24 20:34> Condition: Stable <GLYNN Hill Last Filed: 02/23/24 20:34>
[2024-02-23 15:03] LABS: Hematocrit 28.7 % (37.0-47.0); Hemoglobin 9.7 g/dL (12.0-15.0); Mean Corpuscular HGB Conc 33.8 g/dl (32-36); Mean Corpuscular Hemoglobin 31.8 pg (26-34); Mean Corpuscular Volume 94.1 fl (80-100); Platelet Count Result 285 k/mm3 (150-375); Red Blood Count 3.05 M/mm3 (4.2-5.4); Red Cell Distribution Width 13.9 % (11.5-14.5)
[2024-02-23 15:19] LABS: INR 1.1; Partial Thromboplastin Time 27.5 Seconds (22.3-36.8); Prothrombin Time 14.6 Seconds (11.1-14.7)
[2024-02-23 15:20] LABS: Alanine Aminotransferase 35 U/L (6-35); Albumin Level 3.4 g/dL (3.5-5.1); Alkaline Phosphatase 139 U/L (38-126); Anion Gap 14 mmol/L (4-12); Aspartate Amino Transferase 53 U/L (14-36); Bilirubin,Total 0.8 mg/dL (0.2-1.3); Blood Urea Nitrogen 63 mg/dL (7-17); Calcium 6.6 mg/dL (8.4-10.2); Carbon Dioxide 22 mmol/L (22-30); Chloride 95 mmol/L (98-107); Estimated CRCL calculation 15 ml/min; Estimated Glomerular Filt Rate 17; Glucose 143 mg/dL (65-110); Potassium 3.8 mmol/L (3.4-5.0); Sodium 131 mmol/L (137-145)
[2024-02-23 15:41] LABS: Lymphocytes Absolute Manual 0.56 K/mm3 (1.1-4.5); Monocytes Absolute Manual 2.52 K/mm3 (0.1-0.90); Monocytes Percent Manual 9 % (3-9); Neutrophils Percent Manual 89 % (46-73); Platelet Estimate Adequate (Adequate); Total Cells Counted 100
[2024-02-23 15:42] LABS: Schistocytes None Seen
[2024-02-23 16:49] LABS: Add Urine Microscopic? YES; Appearance Urine Cloudy (Clear); Bacteria Urine Rare /hpf; Bilirubin Urine Negative (Negative); Blood Urine 2+ (Negative); Color Urine Yellow (Yellow); Glucose Urine UA Negative (Negative); Ketones Urine Negative (Negative); Leukocyte Esterase Ur 3+ LEU/UL (Negative); Need Manual Microscopic Reviewed; Nitrate Urine Negative (Negative); Non Pathogenic Casts 0-2; Protein Urine 1+ mg/dL (Negative); RBC Urine 0-2 /hpf (0-2); Specific Grav Ur 1.008 (1.001-1.035); Squamous Epithelial Cell Urine None Seen /hpf (Few); Urobilinogen Urine 0.2 mg/dL (<2.0); WBC Urine >100 /hpf (0-3); pH Urine 5.5 (5.0-9.0)
[2024-02-23] MEDS: SODIUM CHLORIDE 0.9% IV 1,000 ML 999 ML IV CONT (20:14)
--- NOTE | 2024-02-23 20:37 | PM.IMHP ---
H&P: HPI History of Present Illness Date/Time: 02/23/24 20:37 Chief Complaint: falls Narrative: This is a 68-year-old with past medical history significant for chronic kidney disease, colitis, hypercholesteremia, hypertension, DJD. Patient presents to the emergency room due to recurrent falls,, generalized weakness, Diarrhea, no vomiting, no abdominal pain has had back pain, Patient denies fevers, chills, cough, sputum production, weight loss has had good appetite. Preliminary workup was significant for chemistry BUN 63 creatinine 2.8 urinalysis was significant for over 100 wbc's per high-power field. patient has been admitted for further evaluation management and treatment. EXAMINATION: CT brain wo con DATE: 02/23/2024 15:22 INDICATION: fall . TECHNIQUE: Computed tomography (CT) of the head was performed without intravenous contrast. The mA was adjusted according to patient size. Iterative reconstruction technique was employed. The dose-length product was 605.33 mGy-cm. COMPARISON: None. FINDINGS: No acute intracranial hemorrhage or extra-axial fluid collection. No hydrocephalus, mass, or herniation. No acute ischemic infarct. Unremarkable dural venous sinus attenuation. No acute osseous abnormality. The aerated spaces are clear. Extensive bilateral basal ganglia and thalamic calcification. Focal cortical hyperdensities in the frontal lobes, likely additional parenchymal site of calcification. Bilateral cerebellar parenchymal calcification/laminar necrosis. Mild atrophy. Moderate chronic white matter change. Right lens replacement. Atherosclerotic intracranial calcifications. IMPRESSION: No acute intracranial process. EXAMINATION: CT abdomen pelvis wo con DATE: 02/23/2024 18:40 INDICATION: leukocytosis, renal lesion TECHNIQUE: Computed tomography (CT) of the abdomen and pelvis was performed without intravenous contrast. Automated exposure control and iterative reconstruction technique were employed. The dose-length product was 267.52 mGy-cm. COMPARISON: X-ray pelvis and right hip, same date. FINDINGS: Lower thorax: Mild dependent scar/atelectasis. Coronary artery calcification. Liver: Normal. Biliary/Gallbladder: Gallbladder is normal. No bile duct dilation. Pancreas: No mass or duct dilation. Spleen: Normal. Adrenals:No mass. Kidneys: Medullary nephrocalcinosis. No obstructing calcification. Lobular contour of the medial left upper/mid pole. Suggestion of an indeterminate density 3.0 cm right lower pole lesion. Simple right upper and mid pole cysts. Moderate perinephric stranding GI tract: No small or large bowel dilation. Appendix not confidently visualized. Mesentery/Peritoneum: No ascites, mass, or free air. Retroperitoneum: No mass. Atherosclerotic abdominal aortic and/or arterial calcifications. Pelvis: Normal urinary bladder. Ovaries and uterus not identified. Soft Tissues: Soft tissues and body wall unremarkable. Bones: No acute osseous finding. Suggestion of mild diffuse osseous sclerosis. IMPRESSION: No acute abdominopelvic process detected. No pelvic fracture identified, prior radiograph findings likely related to artifact Possible bilateral renal lesions, may represent hemorrhagic/proteinaceous cysts, other renal mass, or artifact. Given renal function, consider nonemergent but timely renal MRI without and with contrast. Suggestion of mild diffuse osseous sclerosis as can be seen with myelofibrosis, mastocytosis, leukemia, lymphoma, sickle cell anemia, metabolic processes such as renal osteodystrophy and others entities. Review of Systems Review of Systems: Recurrent falls, generalized weakness, diarrhea Constitutional: Constitutional: Denies chills, Denies fever(s), Reports frequent falls, Reports malaise, Denies night sweats and Reports weakness PMFSH Past Medical History Medical History (Updated 02/23/24 @ 22:25 by Suintha Cortez MD) Chronic renal disease, stage IV Colitis Hypercholesteremia Hypertension Osteoarthritis Surgical History Surgical History H/O: hysterectomy History of left shoulder replacement History of orthopedic surgery bilateral wrist Social History Social History (Updated 02/23/24 @ 14:51 by Marsha Frye PA-C) Substance use: never Meds Home Medications and Allergies Home Medications Medication Instructions Recorded Confirmed Type atenolol 25 mg tablet 25 mg PO DAILY 04/18/22 01/30/23 History atorvastatin 20 mg tablet 20 mg PO DAILY 04/18/22 01/30/23 History bupropion HCl 150 mg 24 hr tablet, 150 mg PO QAM 04/18/22 01/30/23 History extended release (Wellbutrin XL) loratadine 10 mg tablet (Claritin) 10 mg PO DAILY 04/18/22 01/30/23 History sulfamethoxazole 800 1 tablet PO Q12H #10 tabs 01/30/23 Rx mg-trimethoprim 160 mg tablet (Bactrim DS) Allergies Allergy/AdvReac Type Severity Reaction Status Date / Time No Known Allergies Allergy Verified 02/23/24 14:24 Vital Signs Vital Signs - 24 hr 02/23/24 14:05 02/23/24 16:00 02/23/24 15:00 Temperature 97.8 F Pulse Rate 73 68 68 Respiratory Rate 16 16 16 Blood Pressure 130/70 128/80 125/77 Pulse Oximetry 100 99 100 Oxygen Delivery Room Air 02/23/24 14:16 02/23/24 14:32 02/23/24 14:46 Temperature Pulse Rate 73 69 73 Respiratory Rate 14 11 L 14 Blood Pressure 130/77 117/81 125/77 Pulse Oximetry 100 99 100 Oxygen Delivery 02/23/24 15:59 02/23/24 16:16 02/23/24 16:38 Temperature Pulse Rate 70 70 71 Respiratory Rate 17 20 16 Blood Pressure 128/80 121/79 123/84 Pulse Oximetry 96 100 100 Oxygen Delivery 02/23/24 17:00 02/23/24 19:11 02/23/24 20:14 Temperature Pulse Rate 67 82 79 Respiratory Rate 14 18 16 Blood Pressure 128/72 115/79 120/84 Pulse Oximetry 100 90 98 Oxygen Delivery Exam Narrative: laying in a stretcher Const: General: comfortable, no acute distress, well developed, alert, awake and average body habitus Nutritional Appearance: average body habitus Orientation/consciousness: patient oriented x3 Other: bruises distributed on limbs lower lip laceration HENMT: Head: normal to inspection, normocephalic and atraumatic Ears: hearing grossly normal bilaterally Face/Nose/Sinus: normal facial exam Face and sinus: normal facial exam Eyes: General: appearance normal, both eyes and all related structures Pupils: Equal, round and reactive pupils present EOM: EOMs intact bilaterally Neck: Neck: full ROM, no lymphadenopathy and no JVD Thyroid: thyroid normal Lymphatic: no lymphadenopathy noted Resp: Effort & Inspection: normal respiratory effort and able to speak in complete sentences Auscultation: clear to auscultation bilaterally Cardio: Jugular venous distension: no JVD Rate: regular rate Rhythm: regular rhythm Heart sounds: S1 normal heart sound present and S2 normal heart sound present GI: GI Palp: Yes Soft to palpation and Yes No hepatosplenomegaly present : General: Yes deferred Skin: Rashes: no rashes Wounds: no wounds Neuro: General: patient oriented x3 and CN's II-XI intact bilaterally Cranial nerves: Yes CN's II-XII intact bilaterally and Yes Equal, round and reactive pupils present Cognition (Neuro): normal cognition Speech: normal speech Gait exam (Neuro): Normal gait present Motor exam (neuro): 5/5 motor strength present throughout Extrem: General: normal to inspection, full ROM, no joint enlargement and no pedal edema H&P: Results Labs Labs: Short CBC 02/23/24 Range/Units 14:58 WBC 28.0 H (4.5-10.0) K/mm3 Hgb 9.7 L (12.0-15.0) g/dL Hct 28.7 L (37.0-47.0) % Plt Count 285 (150-375) k/mm3 BMP 02/23/24 14:58 Sodium 131 L Potassium 3.8 Chloride 95 L Carbon Dioxide 22 BUN 63 H Creatinine 2.80 H Glucose 143 H Calcium 6.6 L Liver Function 02/23/24 Range/Units 14:58 Total Bilirubin 0.8 (0.2-1.3) mg/dL AST 53 H (14-36) U/L ALT 35 (6-35) U/L Alkaline Phosphatase 139 H (38-126) U/L Albumin 3.4 L (3.5-5.1) g/dL Urine 02/23/24 Range/Units 16:32 Urine Color Yellow (Yellow) Urine Appearance Cloudy H (Clear) Urine pH 5.5 (5.0-9.0) Ur Specific [place] 1.008 (1.001-1.035) Urine Protein 1+ H (Negative) mg/dL Urine Glucose (UA) Negative (Negative) mg/dL Assessment and Plan Assessment and plan (1) Acute UTI: Code(s): N39.0 - Urinary tract infection, site not specified Status: Acute Assessment and Plan: Admit to regular medical floor patient started on Rocephin await cultures (2) Chronic kidney disease (CKD): Qualifiers: Chronic kidney disease stage: stage 4 (severe) Qualified Code(s): N18.4 - Chronic kidney disease, stage 4 (severe) Code(s): N18.9 - Chronic kidney disease, unspecified Status: Acute Assessment and Plan: no prior or lab work for comparison will continue to monitor patient received 1 L of NS in emergency room (3) Hypertension: Code(s): I10 - Essential (primary) hypertension Status: Acute Assessment and Plan: resume home meds as needed Hospitalist MIPS Advance Care Plan I have confirmed that the patient's Advanced Care Plan is present, code status is documented, or surrogate decision maker is listed in patient medical record.: Yes Medication Reconciliation I have utilized all available resources to obtain, update and review the patients current medications (includes all prescriptions, OTC, herbals, cannabis, and nutritional supplements).: Yes
--- NOTE | 2024-02-23 21:15 | ADMGEN ---
This patient, Hali Pittman, was admitted to Medical Room 243-. Patient/family oriented to hospital policies and general routines including ID bracelet, bed and alarms, visiting hours, pain management, procedures, bathroom and other care routines, personal items, smoking policy, room service/diet, and visiting hours. Information on how to activate the Rapid Response Team has been discussed. Patient/Family are encouraged to report perceived risks to care and to ask questions if they do not understand what they are told or what they should do.
[2024-02-24 05:16] VITALS: BP 112/60; PULSE 79; RESP 14; TEMP 36.6; O2SAT 94
[2024-02-24 09:41] LABS: Hematocrit 24.8 % (37.0-47.0); Hemoglobin 8.4 g/dL (12.0-15.0); Mean Corpuscular HGB Conc 33.9 g/dl (32-36); Mean Corpuscular Hemoglobin 31.9 pg (26-34); Mean Corpuscular Volume 94.3 fl (80-100); Platelet Count Result 275 k/mm3 (150-375); Red Blood Count 2.63 M/mm3 (4.2-5.4); Red Cell Distribution Width 13.7 % (11.5-14.5); White Blood Count 20.9 K/mm3 (4.5-10.0)
[2024-02-24 09:51] LABS: Anion Gap 15 mmol/L (4-12); Blood Urea Nitrogen 51 mg/dL (7-17); Calcium 5.9 mg/dL (8.4-10.2); Carbon Dioxide 21 mmol/L (22-30); Chloride 98 mmol/L (98-107); Estimated CRCL calculation 18 ml/min; Estimated Glomerular Filt Rate 20; Glucose 163 mg/dL (65-110); Potassium 3.3 mmol/L (3.4-5.0); Sodium 134 mmol/L (137-145)
--- NOTE | 2024-02-24 11:59 | PC.NURSE ---
Addendum entered by Betsy Foster RN 02/24/24 19:58: Spoke to provider regarding home medication list and dosing of wellbutrin. Order of wellbutrin updated per providers request. [facility] received [facility] Patient unsure of provider. Original Note: [facility]. Patient does not have a list of home medications. Patient was able to say with certainty the dosing and scheduling of atenolol and atorvastatin. Unsure of wellbutrin dosing and scheduling (note placed in med rec.)
--- NOTE | 2024-02-24 12:37 | P.PNIM_ITS ---
Progress Note: A&P Assessment and Plan (1) Acute UTI: Code(s): N39.0 - Urinary tract infection, site not specified Status: Acute Assessment and Plan: - UA consistent with UTI. - Blood and urine cultures collected. - Started on Ceftriaxone. - Follow cultures. (2) Chronic kidney disease (CKD): Qualifiers: Chronic kidney disease stage: stage 4 (severe) Qualified Code(s): N18.4 - Chronic kidney disease, stage 4 (severe) Code(s): N18.9 - Chronic kidney disease, unspecified Status: Acute Assessment and Plan: - Possibly JT on CKD. - Renal function improving with IVF hydration 2.8>>2.4 - No prior or labs for baseline comparison - IVF hydration. - Avoid nephrotoxic agents. - Given 1 L of NS in emergency room - continue to monitor renal function closely. (3) Hypertension: Code(s): I10 - Essential (primary) hypertension Status: Acute Assessment and Plan: - BP trending normal lows. - Hold BP meds for now. (4) Kidney lesion, [place], bilateral: Code(s): N28.9 - Disorder of kidney and ureter, unspecified Status: Acute Assessment and Plan: - CT abd/pelvis showing possible dalila renal lesions. - Advised to follow-up outpatient MRI w/wo contrast after discharge. (5) Depression: Code(s): F32.A - Depression, unspecified Status: Acute Assessment and Plan: - Resume bupropion. Plan Continue UTI treatment with abx, IVF hydration for possible JT, PT/OT eval and treatment. Time Spent With Patient Time with patient: 15 - 25 minutes Subjective Date/time seen: 02/24/24 12:37 Patient states that she doesn't know why she's been falling but admits to falling multiple times recently, pt displaying bruises to dalila arms and legs. Interval history: Patient calm on bedrest with generalized muscle weakness. Looks to be in no acute distress. Review of Systems Review of Systems: All systems reviewed & are unremarkable except as noted in HPI and below Exam Narrative: HEENT: Atraumatic, PERRL, EOM, moist mucus membrans. NECK: Supple. Lungs: Clear bilaterally. Heart: RRR, no murmurs. Abdomen: Soft, non-tender, non-distended, +ve bowel sounds X4 quadrants. Extremities: Multiple bruises to dalila arms with some skin tears. Bruising to dalila. LE, 2+ pedal pulses. Skin: Warm and dry. Bruising and skin tears to dalila. UE and bruising to dalila. LE. Neuro: Appears slightly confused, only oriented to self and location. No focal neuro deficits noted. Psych: Pleasant and co-operative. Objective Data Vital Signs Vital Signs: Vital Signs - 24 hr 02/23/24 14:05 02/23/24 16:00 02/23/24 15:00 Temperature 97.8 F Pulse Rate 73 68 68 Respiratory Rate 16 16 16 Blood Pressure 130/70 128/80 125/77 Pulse Oximetry 100 99 100 Oxygen Delivery Room Air 02/23/24 14:16 02/23/24 14:32 02/23/24 14:46 Temperature Pulse Rate 73 69 73 Respiratory Rate 14 11 L 14 Blood Pressure 130/77 117/81 125/77 Pulse Oximetry 100 99 100 Oxygen Delivery 02/23/24 15:59 02/23/24 16:16 02/23/24 16:38 Temperature Pulse Rate 70 70 71 Respiratory Rate 17 20 16 Blood Pressure 128/80 121/79 123/84 Pulse Oximetry 96 100 100 Oxygen Delivery 02/23/24 17:00 02/23/24 19:11 02/23/24 20:14 Temperature Pulse Rate 67 82 79 Respiratory Rate 14 18 16 Blood Pressure 128/72 115/79 120/84 Pulse Oximetry 100 90 98 Oxygen Delivery 02/23/24 21:55 02/24/24 05:16 02/24/24 09:27 Temperature 98.3 F 97.9 F Pulse Rate 83 79 Respiratory Rate 16 14 Blood Pressure 126/69 112/60 Pulse Oximetry 99 94 Oxygen Delivery Room Air 02/24/24 09:13 02/24/24 08:18 Temperature Pulse Rate Respiratory Rate Blood Pressure Pulse Oximetry Oxygen Delivery Room Air Room Air Intake/Output Intake/Output: Intake & Output 02/21/24 02/22/24 02/23/24 02/24/24 23:59 23:59 23:59 23:59 Intake Total 50 840 Output Total 125 Balance 50 715 Meds/Results Medications: Active Medications Generic Name Dose Route Start Last Admin Trade Name Freq PRN Reason Stop Dose Admin Acetaminophen 1,000 mg 02/24/24 01:19 Acetaminophen 500 Mg Tablet PO Q6H PRN Mild Pain (1-3) or Fever Al Hydrox/Mg Hydrox/Simethicone 30 ml 02/24/24 00:06 Mag Hydrox/Al Hydrox/Simeth 30 Ml Udc PO Q6H PRN Indigestion Ceftriaxone Sodium 1 gm in 50 mls @ 100 mls/hr 02/24/24 09:00 02/24/24 10:36 Rocephin 1 Gm/Ns 50 Ml IVPB Infused Q24H LORNA Infusion Ondansetron HCl 4 mg 02/24/24 00:06 Ondansetron Inj 4 Mg/2 Ml Vial IV PUSH Q6H PRN Nausea And Vomiting Radiology Results: ITS Impressions Head CT 02/23/24 15:26 IMPRESSION: No acute intracranial process. Chest X-Ray 02/23/24 15:38 IMPRESSION: No acute cardiopulmonary process. Hip/Pelvis X-Ray 02/23/24 15:42 IMPRESSION: Possible nondisplaced right obturator ring fracture. Cervical Spine CT 02/23/24 15:59 IMPRESSION: No acute fracture or traumatic malalignment in the cervical spine. Lumbar Spine CT 02/23/24 16:15 IMPRESSION: No acute fracture or traumatic malalignment in the lumbar spine. Indeterminate density left renal lesion versus lobulated renal contour. Recommend nonemergent but timely outpatient CT or MRI without and with contrast for further evaluation. Abdomen/Pelvis CT 02/23/24 18:46 IMPRESSION: No acute abdominopelvic process detected. No pelvic fracture identified, prior radiograph findings likely related to artifact Possible bilateral renal lesions, may represent hemorrhagic/proteinaceous cysts, other renal mass, or artifact. Given renal function, consider nonemergent but timely renal MRI without and with contrast. Suggestion of mild diffuse osseous sclerosis as can be seen with myelofibrosis, mastocytosis, leukemia, lymphoma, sickle cell anemia, metabolic processes such as renal osteodystrophy and others entities. Labs Labs: Laboratory Results - last 24 hr 02/23/24 02/23/24 02/24/24 14:58 16:32 09:25 WBC 28.0 H 20.9 H RBC 3.05 L 2.63 L Hgb 9.7 L 8.4 L Hct 28.7 L 24.8 L MCV 94.1 94.3 MCH 31.8 31.9 MCHC 33.8 33.9 RDW 13.9 13.7 Plt Count 285 275 MPV 11.0 H 11.0 H Immature Gran % (Auto) Not Reportable Neut % (Auto) Not Reportable Lymph % (Auto) Not Reportable Dent % (Auto) Not Reportable Eos % (Auto) Not Reportable Baso % (Auto) Not Reportable Lymph # (Auto) Not Reportable Dent # (Auto) Not Reportable Eos # (Auto) Not Reportable Baso # (Auto) Not Reportable Abs Immat Gran (auto) Not Reportable Absolute Neuts (auto) Not Reportable Absolute Nucleated RBC Not Reportable Total Counted 100 Neutrophils % (Manual) 89 H Lymphocytes % (Manual) 2.0 L Monocytes % (Manual) 9 Nucleated RBC % Not Reportable Abs Lymphs (Manual) 0.56 L Abs Monocytes (Manual) 2.52 H Platelet Estimate Adequate Schistocytes None seen PT 14.6 INR 1.1 APTT 27.5 Sodium 131 L 134 L Potassium 3.8 3.3 L Chloride 95 L 98 Carbon Dioxide 22 21 L Anion Gap 14 H 15 H BUN 63 H 51 H D Creatinine 2.80 H 2.40 H Estim Creat Clear Calc 15 18 Estimated GFR 17 L 20 L Glucose 143 H 163 H Calcium 6.6 L 5.9 L* Total Bilirubin 0.8 AST 53 H ALT 35 Alkaline Phosphatase 139 H Total Protein 7.0 Albumin 3.4 L Urine Color Yellow Urine Appearance Cloudy H Urine pH 5.5 Ur Specific Ransom 1.008 Urine Protein 1+ H Urine Glucose (UA) Negative Urine Ketones Negative Ur Blood (Man) 2+ H Urine Nitrate Negative Urine Bilirubin Negative Urine Urobilinogen 0.2 Add Ur Microanalysis Reviewed Leukocyte Esterase Rfl 3+ H Urine RBC 0-2 Urine WBC >100 H Ur Squamous Epith Cells None seen Urine Bacteria Rare Urine Casts 0-2 Hospitalist MIPS Advance Care Plan I have confirmed that the patient's Advanced Care Plan is present, code status is documented, or surrogate decision maker is listed in patient medical record.: Yes Medication Reconciliation I have utilized all available resources to obtain, update and review the patients current medications (includes all prescriptions, OTC, herbals, can nabis, and nutritional supplements).: Yes
[2024-02-24 14:00] VITALS: BP 109/62; PULSE 79; RESP 20; TEMP 36.3; O2SAT 99
[2024-02-24] MEDS: SODIUM CHLORIDE 0.9% IV 1,000 ML 100 ML IV CONT (14:15)
[2024-02-24] MEDS: CALCIUM GLUC 1,000 MG/NS 50 ML 1,000 MG/50 ML BAG 100 MG IVPB (14:15)
[2024-02-24] MEDS: ATORVASTATIN 20 MG TABLET PO (20:07)
[2024-02-24] MEDS: ACETAMINOPHEN 500 MG TABLET 1000 MG PO (20:09)
[2024-02-24 21:39] VITALS: BP 119/64; PULSE 73; RESP 18; TEMP 36.9; O2SAT 97
--- NOTE | 2024-02-25 | ECHO_ITS ---
Patient Info Name: Hali Pittman Age: 68 years : 1955 Gender: Female Ht: 64 in Wt: 136 lbs BSA: 1.68 m2 HR: 72 bpm BP: 130 / 67 mmHg Heart Rhythm: Sinus Rhythm Technical Quality: Good Exam Date: 02/25/2024 12:32 PM Exam Location: Echo Lab Patient Status: Inpatient Admit Date: 02/25/2024 Staff Ordering Physician: Kvng Smith NP Recruiting Intern: Erica Saldaña RDCS Attending Provider: Sunitha Cortez MD Referring Physician: Luis ECHEVERRIA; Exam Type: CA echo doppler color flow Study Info Indications - Recurrent falls Complete two-dimensional, color flow and Doppler transthoracic echocardiogram is performed. Summary 1. Complete two-dimensional, color flow and Doppler transthoracic echocardiogram is performed. 2. Left ventricular systolic function is normal, estimated at 60-65%. 3. There is mild mitral valve regurgitation. 4. There is mild tricuspid valve regurgitation. 5. No pulmonary hypertension, estimated pulmonary arterial systolic pressure is 36 mmHg. 6. There is mild pulmonic regurgitation. Left Ventricle The left ventricular diastolic function is abnormal. Left ventricular chamber dimension is normal. Left ventricular systolic function is normal, estimated at 60-65%. There is no increased left ventricular wall thickness. Left ventricular septal wall motion is normal. Right Ventricle Right ventricular chamber dimension is normal. Right ventricular systolic function is normal. Left Atria Left atrial chamber dimension is normal. Right Atria Right atrial chamber dimension is normal. Atrial Septum Intact interatrial septum visualized by color flow imaging. Aortic Valve The aortic valve is trileaflet. There is no aortic valve sclerosis. There is no aortic valve stenosis. There is no aortic valve regurgitation. Pulmonic Valve The pulmonic valve is normal. There is no pulmonic valve stenosis. There is mild pulmonic regurgitation. Mitral Valve The mitral valve has normal leaflets. There is no mitral valve stenosis. There is mild mitral valve regurgitation. Tricuspid Valve The tricuspid valve leaflets are normal. There is no significant tricuspid valve stenosis. There is mild tricuspid valve regurgitation. No pulmonary hypertension, estimated pulmonary arterial systolic pressure is 36 mmHg. Pericardium/Pleural The pericardium appears normal. There is no pericardial effusion. Inferior Vena Cava Normal inferior vena cava with >50% collapse upon inspiration consistent with Empty right atrial pressure, 5 mmHg. Aorta The aortic root size at the sinus of Valsalva is normal. The prox ascending aorta size is normal. Left Ventricular Outflow Tract Name Value Normal LVOT 2D LVOT Diameter 2.0 cm LVOT Doppler LVOT Peak Gradient 7 mmHg LVOT Mean Gradient 3 mmHg LVOT VTI 22 cm LVOT VTI/AV VTI Ratio 0.7 LVOT Stroke Volume 70 ml LVOT CO 6.1 l/min LVOT CI 3.7 l/min/m2 Pulmonic Valve Name Value Normal RVOT Doppler RVOT Peak Gradient 4 mmHg PV Doppler PV Peak Gradient 6 mmHg Mitral Valve Name Value Normal MV Doppler MV Decel [place] 657 cm/s2 MV PHT 40 ms MV Area (PHT) 5.4 cm2 4.0-5.0 MV Diastolic Function MV E Peak Velocity 91 cm/s MV A Peak Velocity 101 cm/s MV E/A 0.9 MV Decel Time 139 ms MV Annular TDI MV E/e' (Septal) 13.4 <=8.0 Tricuspid Valve Name Value Normal TV Regurgitation Doppler TR Peak Velocity 280 cm/s TR Peak Gradient 31 mmHg Estimated PAP/RSVP RA Pressure 5 mmHg <=5 PA Systolic Pressure 36 mmHg <36 RV Systolic Pressure 36 mmHg <36 Aorta Name Value Normal Ascending Aorta Ao Root Diameter (MM) 3.1 cm Ao Root Diam Index (MM) 1.8 cm/m2 Aortic Valve Name Value Normal AV Doppler AV Peak Velocity 187 cm/s AV Peak Gradient 14 mmHg AV Mean Gradient 7 mmHg AV VTI 30 cm AV Area (Cont Eq VTI) 2.3 cm2 >=3.0 AV Area (Cont Eq Tommy) 2.2 cm2 AV Regurgitation 2D LVOT Area 3.2 cm2 Ventricles Name Value Normal LV Dimensions 2D/MM IVS Diastolic Thickness (2D) 1.0 cm 0.6-1.0 LVID Diastole (2D) 4.8 cm 3.8-5.2 LVIW Diastolic Thickness (2D) 0.9 cm 0.6-0.9 LVID Systole (2D) 2.7 cm 2.2-3.5 LVOT Diameter 2.0 cm LV Mass (2D Cubed) 150.45 g 67.00-162.00 LV Mass Index (2D Cubed) 90 g/m2 43-95 Relative Wall Thickness (2D) 0.36 LV Fractional Shortening/Ejection Fraction 2D/MM LV Fractional Shortening (2D) 44 % 27-45 LV EF (2D Teicholz) 75 % 54-74 LV Diastolic Volume (4C MOD) 49 ml LV EF (4C MOD) 64 % LV Diastolic Volume (2C MOD) 59 ml LV EF (2C MOD) 70 % LV Diastolic Volume (BP MOD) 55 ml 46-106 LV Diastolic Volume Index (BP MOD) 33 ml/m2 29-61 LV Systolic Volume (BP MOD) 18 ml 14-42 LV Systolic Volume Index (BP MOD) 11 ml/m2 8-24 LV EF (BP MOD) 67 % 54-74 LV Diastolic Length (4C) 6.5 cm LV Systolic Length (4C) 5.6 cm LV Stroke Volume (4C MOD) 31 ml Atria Name Value Normal LA Dimensions LA Dimension (MM) 3.8 cm 2.7-3.8 LA Volume (4C A-L) 40 ml LA Volume (BP A-L) 36 ml RA Dimensions RA Area (4C) 11.8 cm2 <=18.0 Report Signatures
[2024-02-25] MEDS: SODIUM CHLORIDE 0.9% IV 1,000 ML 100 ML IV CONT ×2 (03:30→15:46)
[2024-02-25 05:30] LABS: Basophils Absolute Auto 0.1 K/mm3 (0.0-0.1); Basophils Percent Auto 0.4 % (0.2-1.2); Eosinophils Percent Auto 0.2 % (0-4.4); Hematocrit 24.9 % (37.0-47.0); Hemoglobin 8.2 g/dL (12.0-15.0); Immature Granulocyte Absolute 0.98 K/mm3 (0.00-0.031); Immature Granulocyte Percent A 5.5 % (0-0.5); Lymphocytes Percent Auto 6.1 % (18.3-44.2); Mean Corpuscular HGB Conc 32.9 g/dl (32-36); Mean Corpuscular Hemoglobin 31.2 pg (26-34); Mean Corpuscular Volume 94.7 fl (80-100); Mean Platelet Volume 10.7 fl (7.4-10.4); Monocytes Absolute Auto 1.5 K/mm3 (0.1-0.6); Monocytes Percent Auto 8.1 % (2.6-8.5); Neutrophils Absolute Auto 14.3 K/mm3 (1.3-6.7); Neutrophils Percent Auto 79.7 % (45.5-73.1); Platelet Count Result 278 k/mm3 (150-375); Red Blood Count 2.63 M/mm3 (4.2-5.4); Red Cell Distribution Width 13.9 % (11.5-14.5); White Blood Count 17.9 K/mm3 (4.5-10.0)
[2024-02-25 05:40] VITALS: BP 130/67; PULSE 72; RESP 18; TEMP 36.8; O2SAT 99
[2024-02-25 06:40] LABS: Albumin Level 2.9 g/dL (3.5-5.1); Anion Gap 11 mmol/L (4-12); Blood Urea Nitrogen 37 mg/dL (7-17); Calcium 5.8 mg/dL (8.4-10.2); Carbon Dioxide 21 mmol/L (22-30); Chloride 105 mmol/L (98-107); Estimated CRCL calculation 21 ml/min; Estimated Glomerular Filt Rate 25; Glucose 108 mg/dL (65-110); Magnesium 1.6 mg/dL (1.6-2.3); Phosphorus 4.2 mg/dL (2.5-4.5); Potassium 3.2 mmol/L (3.4-5.0); Sodium 137 mmol/L (137-145)
[2024-02-25 06:54] LABS: Vitamin D 25 Hydroxy 33.9 ng/mL
[2024-02-25 07:05] LABS: Parathyroid Intact 33.3 pg/mL (14.5-75.2)
[2024-02-25 07:48] LABS: Folic Acid > 20.0 ng/mL (2.76->20)
[2024-02-25] MEDS: POTASSIUM CHLORIDE 20 MEQ ER TABLET 40 MEQ PO (08:20)
[2024-02-25] MEDS: buPROPion HCL XL (24 HR) 150 MG TABCR PO (08:20)
[2024-02-25] MEDS: CALCIUM GLUC 1,000 MG/NS 50 ML 1,000 MG/50 ML BAG 100 MG IVPB ×2 (08:20→14:02)
[2024-02-25] MEDS: CALCIUM CARBONATE (TUMS) 500 MG (200 MG ELEMENTAL) PO (08:21)
[2024-02-25] MEDS: SENNA/DOCUSATE SODIUM TABLET 1 TAB PO (10:31)
[2024-02-25] MEDS: polyethylene glycoL 3350 17 GM POWD.PACK PO (10:31)
--- NOTE | 2024-02-25 11:00 | P.PNIM_ITS ---
Progress Note: A&P Assessment and Plan (1) Acute UTI: Code(s): N39.0 - Urinary tract infection, site not specified Status: Acute Assessment and Plan: - UA consistent with UTI. - Blood and urine cultures collected. - Started on Ceftriaxone. - Follow cultures. (2) Chronic kidney disease (CKD): Qualifiers: Chronic kidney disease stage: stage 4 (severe) Qualified Code(s): N18.4 - Chronic kidney disease, stage 4 (severe) Code(s): N18.9 - Chronic kidney disease, unspecified Status: Acute Assessment and Plan: - Possibly JT on CKD. - Renal function improving with IVF hydration 2.8>>2.4>>2.00 - No prior or labs for baseline comparison - NS @ 100 ml/hr. - Avoid nephrotoxic agents. - Given 1 L of NS in emergency room - continue to monitor renal function closely. (3) Hypertension: Code(s): I10 - Essential (primary) hypertension Status: Acute Assessment and Plan: - BP 130/67. - Home meds on hold. - Echo today. (4) Kidney lesion, [place], bilateral: Code(s): N28.9 - Disorder of kidney and ureter, unspecified Status: Acute Assessment and Plan: - CT abd/pelvis showing possible dalila renal lesions. - Advised to follow-up outpatient MRI w/wo contrast after discharge. (5) Depression: Code(s): F32.A - Depression, unspecified Status: Acute Assessment and Plan: - Resume bupropion. (6) Hypocalcemia due to chronic kidney disease: Code(s): E83.51 - Hypocalcemia; N18.9 - Chronic kidney disease, unspecified Status: Acute Assessment and Plan: * Calcium 5.8. * Add Calcium Gluconate 1,000 mg IVPB q6 x2 * Check ionized calcium * Calcium at 16:00 * Bone scan ordered. CT abdomen showed mild diffuse osseous sclerosis. (7) Hypokalemia: Code(s): E87.6 - Hypokalemia Status: Acute Assessment and Plan: * Potassium 3.2 * Potassium Chloride 40 meq PO x1. * Monitor labs. Plan Continue UTI treatment with abx, IVF hydration for possible JT, PT/OT eval and treatment. Subjective Date/time seen: 02/25/24 11:00 Interval history: Patient reports joint pain is a 10 , constant, and aching. Denies chest pain, palpitations, headache, dizziness, nausea, or vomiting. Review of Systems Review of Systems: All systems reviewed & are unremarkable except as noted in HPI and below Exam Const: General: no acute distress and uncomfortable Resp: Effort & Inspection: normal respiratory effort Auscultation: clear to auscultation bilaterally Cardio: Rate: regular rate Rhythm: regular rhythm GI: GI Palp: Yes Soft to palpation Auscultation: normal bowel sounds Other: Last BM 02/25/24 Skin: Other: Warm and dry. Bruising and skin tears to dalila. UE and bruising to dalila. LE. Neuro: Speech: normal speech Psych: Affect: normal affect Objective Data Vital Signs Vital Signs: Vital Signs - 24 hr 02/24/24 14:00 02/24/24 21:39 02/25/24 05:40 Temperature 97.3 F L 98.4 F 98.3 F Pulse Rate 79 73 72 Respiratory Rate 20 18 18 Blood Pressure 109/62 119/64 130/67 Pulse Oximetry 99 97 99 Oxygen Delivery 02/25/24 08:20 Temperature Pulse Rate Respiratory Rate Blood Pressure Pulse Oximetry Oxygen Delivery Room Air Intake/Output Intake/Output: Intake & Output 02/22/24 02/23/24 02/24/24 02/25/24 23:59 23:59 23:59 23:59 Intake Total 50 1010 1318 Output Total 125 825 Balance 50 885 493 Meds/Results Medications: Active Medications Generic Name Dose Route Start Last Admin Trade Name Freq PRN Reason Stop Dose Admin Acetaminophen 1,000 mg 02/24/24 01:19 02/24/24 20:09 Acetaminophen 500 Mg Tablet PO 1,000 mg Q6H PRN Administration Mild Pain (1-3) or Fever Al Hydrox/Mg Hydrox/Simethicone 30 ml 02/24/24 00:06 Mag Hydrox/Al Hydrox/Simeth 30 Ml Udc PO Q6H PRN Indigestion Atorvastatin Calcium 20 mg 02/24/24 21:00 02/24/24 20:07 Atorvastatin 20 Mg Tablet PO 20 mg HS LORNA Administration Bupropion HCl 150 mg 02/25/24 09:00 02/25/24 08:20 Bupropion Hcl Xl (24 Hr) 150 Mg Tabcr PO 150 mg QAM LORNA Administration Calcium Carbonate 200 mg 02/25/24 08:00 02/25/24 08:21 Calcium Carbonate (Tums) 500 Mg (200 Mg Elemental) PO 200 mg DAILY@0800 LORNA Administration Ceftriaxone Sodium 1 gm in 50 mls @ 100 mls/hr 02/24/24 09:00 02/25/24 10:31 Rocephin 1 Gm/Ns 50 Ml IVPB 100 mls/hr Q24H LORNA Administration Sodium Chloride 1,000 mls @ 100 mls/hr 02/24/24 13:00 02/25/24 03:30 Normal Saline Iv IV CONT 100 mls/hr .Q10H LRONA Administration Calcium Gluconate 1,000 mg in 50 mls @ 100 mls/hr 02/25/24 14:00 Calcium Gluc 1,000 Mg/Ns 50 Ml IVPB 02/25/24 14:29 ONCE ONE Loratadine 10 mg 02/24/24 13:06 Loratadine 10 Mg Tablet PO DAILY PRN Allergy Symptoms Ondansetron HCl 4 mg 02/24/24 00:06 Ondansetron Inj 4 Mg/2 Ml Vial IV PUSH Q6H PRN Nausea And Vomiting Perflutren Lipid Microsphere 0 ml 02/24/24 12:57 Perflutren Lipid Microspheres 1.5 Ml Vial Diluted To 10 Ml Total Volume IV PUSH 02/27/24 12:58 ONCE PRN adequate visualization Protocol Polyethylene Glycol 17 gm 02/25/24 09:45 02/25/24 10:31 Polyethylene Glycol 3350 17 Gm Powd.Pack PO 17 gm QAM LORNA Administration Senna/Docusate Sodium 1 tab 02/25/24 09:45 02/25/24 10:31 Senna/Docusate Sodium Tablet PO 1 tab BID LORNA Administration Radiology Results: ITS Impressions Head CT 02/23/24 15:26 IMPRESSION: No acute intracranial process. Chest X-Ray 02/23/24 15:38 IMPRESSION: No acute cardiopulmonary process. Hip/Pelvis X-Ray 02/23/24 15:42 IMPRESSION: Possible nondisplaced right obturator ring fracture. Cervical Spine CT 02/23/24 15:59 IMPRESSION: No acute fracture or traumatic malalignment in the cervical spine. Lumbar Spine CT 02/23/24 16:15 IMPRESSION: No acute fracture or traumatic malalignment in the lumbar spine. Indeterminate density left renal lesion versus lobulated renal contour. Recommend nonemergent but timely outpatient CT or MRI without and with contrast for further evaluation. Abdomen/Pelvis CT 02/23/24 18:46 IMPRESSION: No acute abdominopelvic process detected. No pelvic fracture identified, prior radiograph findings likely related to artifact Possible bilateral renal lesions, may represent hemorrhagic/proteinaceous cysts, other renal mass, or artifact. Given renal function, consider nonemergent but timely renal MRI without and with contrast. Suggestion of mild diffuse osseous sclerosis as can be seen with myelofibrosis, mastocytosis, leukemia, lymphoma, sickle cell anemia, metabolic processes such as renal osteodystrophy and others entities. Labs Labs: Laboratory Results - last 24 hr 02/25/24 05:15 WBC 17.9 H RBC 2.63 L Hgb 8.2 L Hct 24.9 L MCV 94.7 MCH 31.2 MCHC 32.9 RDW 13.9 Plt Count 278 MPV 10.7 H Immature Gran % (Auto) 5.5 H Neut % (Auto) 79.7 H Lymph % (Auto) 6.1 L [place] % (Auto) 8.1 Eos % (Auto) 0.2 Baso % (Auto) 0.4 Lymph # (Auto) 1.10 [place] # (Auto) 1.5 H Eos # (Auto) 0.0 Baso # (Auto) 0.1 Abs Immat Gran (auto) 0.98 H Absolute Neuts (auto) 14.3 H Absolute Nucleated RBC 0.000 Nucleated RBC % 0.0 Sodium 137 Potassium 3.2 L Chloride 105 Carbon Dioxide 21 L Anion Gap 11 BUN 37 H D Creatinine 2.00 H Estim Creat Clear Calc 21 Estimated GFR 25 L Glucose 108 Calcium 5.8 L* Phosphorus 4.2 Magnesium 1.6 Albumin 2.9 L Vitamin B12 976.0 H Vitamin D 25-Hydroxy 33.9 Folate > 20.0 H TSH (Reflex) 2.670 PTH Intact 33.3 Quality VTE Prophylaxis VTE prophylaxis: mechanical ordered
[2024-02-25 14:00] VITALS: BP 114/97; PULSE 82; RESP 15; TEMP 37.2; O2SAT 100
--- NOTE | 2024-02-25 14:21 | IVDEFINITY ---
Prior to administration of IV Definity the patient was educated on the risks and benefits of the imaging enhancing agent including potential adverse side effects. The patient verbalized understanding. Allergies were verified. No exclusion criteria were identified and at least one of the following inclusion criteria were met: 1) physician request, 2) patient technically difficult to image (per the [place] [employer] guidelines of two or more segments not discernable within the apical view), or 3) questionable left ventricular function. ?
[2024-02-25 16:14] LABS: Calcium 6.8 mg/dL (8.4-10.2)
[2024-02-25 20:13] VITALS: BP 113/64; PULSE 85; RESP 16; TEMP 37.6; O2SAT 98
[2024-02-25] MEDS: ATORVASTATIN 20 MG TABLET PO (21:28)
[2024-02-26] VITALS (8 sets, daily range): BP systolic 115–141; BP diastolic 58–78; PULSE 76–95; RESP 12–16; TEMP 36.2–37.4; O2SAT 96–100
[2024-02-26] MEDS: SODIUM CHLORIDE 0.9% IV 1,000 ML 100 ML IV CONT (02:40)
[2024-02-26 06:13] LABS: Basophils Percent Auto 0.2 % (0.2-1.2); Eosinophils Absolute Auto 0.1 K/mm3 (0-0.3); Eosinophils Percent Auto 0.4 % (0-4.4); Hematocrit 21.3 % (37.0-47.0); Immature Granulocyte Absolute 0.62 K/mm3 (0.00-0.031); Immature Granulocyte Percent A 4.4 % (0-0.5); Lymphocytes Absolute Auto 1.55 K/mm3 (0.9-3.2); Lymphocytes Percent Auto 11.1 % (18.3-44.2); Mean Corpuscular HGB Conc 32.4 g/dl (32-36); Mean Corpuscular Hemoglobin 31.2 pg (26-34); Mean Corpuscular Volume 96.4 fl (80-100); Mean Platelet Volume 11.2 fl (7.4-10.4); Monocytes Absolute Auto 1.2 K/mm3 (0.1-0.6); Monocytes Percent Auto 8.6 % (2.6-8.5); Neutrophils Absolute Auto 10.5 K/mm3 (1.3-6.7); Neutrophils Percent Auto 75.3 % (45.5-73.1); Platelet Count Result 284 k/mm3 (150-375); Red Blood Count 2.21 M/mm3 (4.2-5.4); Red Cell Distribution Width 14.1 % (11.5-14.5)
[2024-02-26 06:24] LABS: Hemoglobin 6.9 g/dL (12.0-15.0)
[2024-02-26 06:30] LABS: Alanine Aminotransferase 93 U/L (6-35); Albumin Level 2.5 g/dL (3.5-5.1); Alkaline Phosphatase 138 U/L (38-126); Anion Gap 9 mmol/L (4-12); Aspartate Amino Transferase 214 U/L (14-36); Bilirubin,Total 0.7 mg/dL (0.2-1.3); Blood Urea Nitrogen 20 mg/dL (7-17); Calcium 5.7 mg/dL (8.4-10.2); Carbon Dioxide 18 mmol/L (22-30); Chloride 109 mmol/L (98-107); Estimated CRCL calculation 26 ml/min; Estimated Glomerular Filt Rate 32; Glucose 92 mg/dL (65-110); Magnesium 1.3 mg/dL (1.6-2.3); Potassium 3.4 mmol/L (3.4-5.0); Sodium 136 mmol/L (137-145)
[2024-02-26] MEDS: CALCIUM GLUC 2,000 MG/NS 100ML 2,000 MG/100 ML BAG 100 MG IVPB (06:47)
[2024-02-26] MEDS: POTASSIUM CHLORIDE 20 MEQ ER TABLET PO (06:48)
[2024-02-26 07:00] LABS: Hemoglobin 6.9 g/dL (12.0-15.0)
[2024-02-26 07:02] LABS: Hematocrit 20.8 % (37.0-47.0)
[2024-02-26 07:55] LABS: Iron < 10 ug/dL (37-170)
[2024-02-26] MEDS: calcitrioL 0.25 MCG CAPSULE PO ×2 (08:13→16:53)
[2024-02-26] MEDS: CALCIUM CARBONATE (TUMS) 500 MG (200 MG ELEMENTAL) PO (08:13)
[2024-02-26] MEDS: SENNA/DOCUSATE SODIUM TABLET 1 TAB PO (08:14)
[2024-02-26] MEDS: buPROPion HCL XL (24 HR) 150 MG TABCR PO (08:14)
[2024-02-26] MEDS: MAGNESIUM SULF 4 GM/WATER100ML 4 GM/100 ML BAG IVPB (08:14)
[2024-02-26 08:42] LABS: Hepatitis C Virus Antibody Negative (Negative)
[2024-02-26] MEDS: PANTOPRAZOLE 40 MG TABLET PO ×2 (08:59→21:39)
--- NOTE | 2024-02-26 09:55 | P.PNIM_ITS ---
Progress Note: A&P Assessment and Plan (1) Acute UTI: Code(s): N39.0 - Urinary tract infection, site not specified Status: Acute Assessment and Plan: - UA consistent with UTI. - Blood culture no growth to date - Urine culture grew E. Coli. - Receiving Ceftriaxone. - Follow cultures. (2) Chronic kidney disease (CKD): Qualifiers: Chronic kidney disease stage: stage 4 (severe) Qualified Code(s): N18.4 - Chronic kidney disease, stage 4 (severe) Code(s): N18.9 - Chronic kidney disease, unspecified Status: Acute Assessment and Plan: - Possibly JT on CKD. - Renal function improving with IVF hydration 2.8>>2.4>>2.00>>1.60. - No prior or labs for baseline comparison - Avoid nephrotoxic agents. - Given 1 L of NS in emergency room - continue to monitor renal function closely. - Nephrology consult (3) Hypoparathyroidism: Code(s): E20.9 - Hypoparathyroidism, unspecified Status: Acute Assessment and Plan: * Patient reports being diagnosed in 1978 but has not seen [employer] in [facility]. * Calcium 5.7. * Add Calcium Gluconate 2,000 mg IVPB given. * Receiving Calcitrol and oral calcium. * Monitor labs. * Nephrology following. 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 * Transfused 1 unit of PRBC's. * Guaiac stool. * Iron <10, TIBC 173, % saturation <6. Patient will need iron infusions once she has completed antibiotics. * Monitor labs. (5) Acute kidney injury: Code(s): N17.9 - Acute kidney failure, unspecified Status: Acute Assessment and Plan: * Renal function improving with IVF hydration 2.8>>2.4>>2.00>>1.60. * Monitor labs * Encourage hydration. (6) Hypocalcemia due to chronic kidney disease: Code(s): E83.51 - Hypocalcemia; N18.9 - Chronic kidney disease, unspecified Status: Acute Assessment and Plan: * Calcium 5.7. * Add Calcium Gluconate 2,000 mg IVPB given. * Ionized calcium 3.8. * Calcium at 16:00 * CT abdomen showed mild diffuse osseous sclerosis. * Bone scan: FINDINGS: There is disc-centered increased activity in lumbar spine correlating with severe degenerative disc disease by CT. There is joint-centered increased activity in the wrists and left hand without radiographic comparison, likely osteoarthritis. IMPRESSION: 1. No specific evidence of malignancy. (7) Hypomagnesemia: Code(s): E83.42 - Hypomagnesemia Status: Acute Assessment and Plan: * Magnesium 1.3 * Patient received a Magnesium Sulfate 4 gm IVPB x1. * Monitor level. (8) Kidney lesion, [place], bilateral: Code(s): N28.9 - Disorder of kidney and ureter, unspecified Status: Acute Assessment and Plan: - CT abd/pelvis showing possible dalila renal lesions. - Advised to follow-up outpatient MRI w/wo contrast after discharge. (9) Hypertension: Code(s): I10 - Essential (primary) hypertension Status: Acute Assessment and Plan: - BP 130/70. - Home meds on hold. - Echo showed: Summary 1. Complete two-dimensional, color flow and Doppler transthoracic echocardiogram is performed. 2. Left ventricular systolic function is normal, estimated at 60-65%. 3. There is mild mitral valve regurgitation. 4. There is mild tricuspid valve regurgitation. 5. No pulmonary hypertension, estimated pulmonary arterial systolic pressure is 36 mmHg. 6. There is mild pulmonic regurgitation. (10) Hypokalemia: Code(s): E87.6 - Hypokalemia Status: Acute Assessment and Plan: * Potassium 3.4, improved. * Monitor labs. (11) Depression: Code(s): F32.A - Depression, unspecified Status: Acute Assessment and Plan: - Resume bupropion. Plan Continue UTI treatment with abx, IVF hydration for possible JT, PT/OT eval and treatment. Subjective Date/time seen: 02/26/24 09:55 Interval history: Patient reports pain in joints is a 5 , constant, and aching. Patient denies chest pain, palpitations, headache, dizziness, nausea, or vomiting. Review of Systems Review of Systems: All systems reviewed & are unremarkable except as noted in HPI and below Exam Const: General: no acute distress and uncomfortable Resp: Effort & Inspection: normal respiratory effort Auscultation: clear to auscultation bilaterally Cardio: Rate: regular rate Rhythm: regular rhythm GI: GI Palp: Yes Soft to palpation Auscultation: normal bowel sounds Skin: Other: Warm and dry. Bruising and skin tears to dalila. UE and bruising to dalila. LE. Neuro: Speech: normal speech Extrem: General: normal to inspection Psych: Mental Status: mental status grossly normal Affect: normal affect Objective Data Vital Signs Vital Signs: Vital Signs - 24 hr 02/25/24 14:00 02/25/24 20:13 02/26/24 05:07 Temperature 99.0 F 99.7 F H 98.9 F Pulse Rate 82 85 78 Respiratory Rate 15 16 12 Blood Pressure 114/97 H 113/64 127/68 Pulse Oximetry 100 98 100 Intake/Output Intake/Output: Intake & Output 02/23/24 02/24/24 02/25/24 02/26/24 23:59 23:59 23:59 23:59 Intake Total 50 1010 2924 1670 Output Total 125 1225 250 Balance 50 885 1699 1420 Meds/Results Medications: Active Medications Generic Name Dose Route Start Last Admin Trade Name Freq PRN Reason Stop Dose Admin Acetaminophen 1,000 mg 02/24/24 01:19 02/24/24 20:09 Acetaminophen 500 Mg Tablet PO 1,000 mg Q6H PRN Administration Mild Pain (1-3) or Fever Al Hydrox/Mg Hydrox/Simethicone 30 ml 02/24/24 00:06 Mag Hydrox/Al Hydrox/Simeth 30 Ml Udc PO Q6H PRN Indigestion Atorvastatin Calcium 20 mg 02/24/24 21:00 02/25/24 21:28 Atorvastatin 20 Mg Tablet PO 20 mg HS LORNA Administration Bupropion HCl 150 mg 02/25/24 09:00 02/26/24 08:14 Bupropion Hcl Xl (24 Hr) 150 Mg Tabcr PO 150 mg QAM LORNA Administration Calcitriol 0.25 mcg 02/26/24 09:00 02/26/24 08:13 Calcitriol 0.25 Mcg Capsule PO 0.25 mcg BID LORNA Administration Calcium Carbonate 200 mg 02/26/24 09:00 02/26/24 08:13 Calcium Carbonate (Tums) 500 Mg (200 Mg Elemental) PO 200 mg TID LORNA Administration Ceftriaxone Sodium 1 gm in 50 mls @ 100 mls/hr 02/24/24 09:00 02/26/24 08:59 Rocephin 1 Gm/Ns 50 Ml IVPB 100 mls/hr Q24H LORNA Administration Magnesium Sulfate 4 gm in 100 mls @ 25 mls/hr 02/26/24 06:37 02/26/24 08:14 Magnesium Sulf 4 Gm/[id number] IVPB 02/26/24 10:36 25 mls/hr ONCE ONE Administration Sodium Chloride 250 mls @ 30 mls/hr 02/26/24 07:07 Normal Saline Iv IV CONT 02/26/24 15:26 .[id number] STA Loratadine 10 mg 02/24/24 13:06 Loratadine 10 Mg Tablet PO DAILY PRN Allergy Symptoms Ondansetron HCl 4 mg 02/24/24 00:06 Ondansetron Inj 4 Mg/2 Ml Vial IV PUSH Q6H PRN Nausea And Vomiting Pantoprazole Sodium 40 mg 02/26/24 09:00 02/26/24 08:59 Pantoprazole 40 Mg Tablet PO 40 mg Q12HR LORNA Administration Polyethylene Glycol 17 gm 02/25/24 09:45 02/26/24 08:17 Polyethylene Glycol 3350 17 Gm Powd.Pack PO Not Given QAM LORNA Senna/Docusate Sodium 1 tab 02/25/24 09:45 02/26/24 08:14 Senna/Docusate Sodium Tablet PO 1 tab BID LORNA Administration Radiology Results: ITS Impressions Head CT 02/23/24 15:26 IMPRESSION: No acute intracranial process. Chest X-Ray 02/23/24 15:38 IMPRESSION: No acute cardiopulmonary process. Hip/Pelvis X-Ray 02/23/24 15:42 IMPRESSION: Possible nondisplaced right obturator ring fracture. Cervical Spine CT 02/23/24 15:59 IMPRESSION: No acute fracture or traumatic malalignment in the cervical spine. Lumbar Spine CT 02/23/24 16:15 IMPRESSION: No acute fracture or traumatic malalignment in the lumbar spine. Indeterminate density left renal lesion versus lobulated renal contour. Recommend nonemergent but timely outpatient CT or MRI without and with contrast for further evaluation. Abdomen/Pelvis CT 02/23/24 18:46 IMPRESSION: No acute abdominopelvic process detected. No pelvic fracture identified, prior radiograph findings likely related to artifact Possible bilateral renal lesions, may represent hemorrhagic/proteinaceous cysts, other renal mass, or artifact. Given renal function, consider nonemergent but timely renal MRI without and with contrast. Suggestion of mild diffuse osseous sclerosis as can be seen with myelofibrosis, mastocytosis, leukemia, lymphoma, sickle cell anemia, metabolic processes such as renal osteodystrophy and others entities. Bone Scan Nuclear Medicine 02/25/24 14:34 IMPRESSION: 1. No specific evidence of malignancy. Labs Labs: Laboratory Results - last 24 hr 02/25/24 02/26/24 02/26/24 15:52 05:20 06:42 WBC 14.0 H RBC 2.21 L Hgb 6.9 L* 6.9 L* Hct 21.3 L 20.8 L* MCV 96.4 MCH 31.2 MCHC 32.4 RDW 14.1 Plt Count 284 MPV 11.2 H Immature Gran % (Auto) 4.4 H Neut % (Auto) 75.3 H Lymph % (Auto) 11.1 L [place] % (Auto) 8.6 H Eos % (Auto) 0.4 Baso % (Auto) 0.2 Lymph # (Auto) 1.55 [place] # (Auto) 1.2 H Eos # (Auto) 0.1 Baso # (Auto) 0.0 Abs Immat Gran (auto) 0.62 H Absolute Neuts (auto) 10.5 H Absolute Nucleated RBC 0.000 Nucleated RBC % 0.0 Sodium 136 L Potassium 3.4 Chloride 109 H Carbon Dioxide 18 L Anion Gap 9 BUN 20 H D Creatinine 1.60 H Estim Creat Clear Calc 26 Estimated GFR 32 L Glucose 92 Calcium 6.8 L 5.7 L* Magnesium 1.3 L Iron < 10 L Ferritin 1230.00 H Total Bilirubin 0.7 AST 214 H ALT 93 H Alkaline Phosphatase 138 H Total Protein 6.0 L Albumin 2.5 L Random Cortisol Hepatitis C Ab Screen Negative Blood Type A Positive Antibody Screen Negative Crossmatch See Detail 02/26/24 07:57 WBC RBC Hgb Hct MCV MCH MCHC RDW Plt Count MPV Immature Gran % (Auto) Neut % (Auto) Lymph % (Auto) [place] % (Auto) Eos % (Auto) Baso % (Auto) Lymph # (Auto) [place] # (Auto) Eos # (Auto) Baso # (Auto) Abs Immat Gran (auto) Absolute Neuts (auto) Absolute Nucleated RBC Nucleated RBC % Sodium Potassium Chloride Carbon Dioxide Anion Gap BUN Creatinine Estim Creat Clear Calc Estimated GFR Glucose Calcium Magnesium Iron Ferritin Total Bilirubin AST ALT Alkaline Phosphatase Total Protein Albumin Random Cortisol 19.70 Hepatitis C Ab Screen Blood Type Antibody Screen Crossmatch Quality VTE Prophylaxis VTE prophylaxis: mechanical ordered
[2024-02-26 10:49] LABS: Ionized Calcium 3.8 mg/dL (4.7-5.5)
[2024-02-26 11:07] LABS: Hepatitis B Surface Antigen Negative (Negative)
[2024-02-26 11:08] LABS: Percent Iron Saturation < 6 % (20-50)
[2024-02-26 11:13] LABS: HAV RESULT Negative (Negative); Hepatitis B Core IgM Result Negative (Negative)
--- NOTE | 2024-02-26 11:40 | P.CONNP_ITS ---
Assessment and Plan Assessment and plan (1) Acute kidney injury: Code(s): N17.9 - Acute kidney failure, unspecified Status: Acute Assessment and Plan: the patient has acute kidney injury. This is on top of chronic kidney disease. The patient has several reasons why she could have JT. She was probably d ehydrated when she came in. She has been treated with fluids and improved. She also has a UTI. Her urine grew E coli. Likely the blood cultures are negative x2 so far. She is getting ceftriaxone. She also had anemia which may have played a small role earlier on but is probably playing more of a role now with her hemoglobin of only 6.9. She is getting a blood transfusion. Her TSAT is low. Will hold off on iron until she finishes with her antibiotics. The patient also has chronic kidney disease. This is most likely due to hypertension. Her GFR started out at 17 but now is up to 32. It is hard to believe that she is on a transplant list if her GFR and creatinine are this goo d. Possibly she has lost weight and muscle mass and with lying in bed sometimes the creatinine turnover lessens and the creatinine can improve. At this point will get urine electrolytes, CPK, and follow her along. Her IV fluids were stopped which is fine because she is eating now. (2) Erythropoietin deficiency anemia: Code(s): D63.1 - Anemia in chronic kidney disease Status: Acute Assessment and Plan: The patient has anemia. Will check stool guaiacs. Iron levels are low so we can give her some iron as an outpatient or later on if she is here after antibiotics have finished. (3) Hypoparathyroidism: Code(s): E20.9 - Hypoparathyroidism, unspecified Status: Acute Assessment and Plan: We can check a PTH level. Her calcium level is quite low. She has received IV calcium. The Chv[place]ek is negative but I fear that with all the medications she get her calcium level might drop. She is currently on calcitriol and oral calcium as well. (4) Hypertension: Code(s): I10 - Essential (primary) hypertension Status: Acute Assessment and Plan: Blood pressure is under good control (5) Acute UTI: Code(s): N39.0 - Urinary tract infection, site not specified Status: Acute Assessment and Plan: the patient is getting antibiotics (6) Renal cyst: Code(s): N28.1 - Cyst of kidney, acquired Status: Acute Assessment and Plan: the patient will need an MRI at some (7) Hypomagnesemia: Code(s): E83.42 - Hypomagnesemia Status: Acute Assessment and Plan: her magnesium level is low. She received IV magnesium already History of Present Illness Reason for Consult Consult date: 02/26/24 Chief Complaint Chief complaint: acute uti History of Present Illness Narrative: Hali is a very pleasant 68-year-old lady who has Multiple medical problems including chronic kidney disease with a baseline GFR of around 20. She sees a swing type lathe operator [facility] who has her on [facility] transplant list. The patient also has hypoparathyroidism discovered many years ago. She takes calcium and Rocaltrol for this. She also has hypertension, hyperlipidemia, DJD, and history of colitis. The patient came in the hospital because she was feeling weak and falling. This been happening for a few days. She says that her appetite has been poor and she has not been eating very well. She has continued to take her other outpatient medications though. She came to the emergency room and was found to have a creatinine of 2.8. Her calcium and magnesium were low as well. She was admitted and given IV fluids. Hemoglobin was mildly low on admission but dropped with hydration and so now she is getting a blood transfusion. She said it said her kidney dysfunction is due to hypertension. She denies diabetes or other kidney diseases. She has been seeing this swing type lathe operator for about 3 or 4 years and things have been relatively stable. She has been told that she was anemic before. She denies any bloody stools or black stools or vomiting of any blood. She has the hypoparathyroidism and has been on Rocaltrol plus calcium for this. It has been relatively stable. She takes magnesium supplements at home because of her low magnesium as an outpatient. She does not smoke or drink Review of Systems Constitutional: Constitutional: Reports no additional constitutional complaints Eyes: Eyes: Reports no additional eye complaints ENT: Reports system reviewed and no additional complaints, except as documented Cardiovascular: Cardiovascular: Reports no additional cardiovascular complaints Respiratory: Respiratory: Reports no additional respiratory complaints Gastrointestinal: Gastrointestinal: Reports no additional gastrointestinal complaints Genitourinary: Genitourinary: Reports no additional female genitourinary complaints Musculoskeletal: Musculoskeletal: Reports no additional musculoskeletal complaints Integumentary/Breasts: Skin/Breast: Reports system reviewed and no additional complaints, except as docu Neurologic: Reports system reviewed and no additional complaints, except as documented Psychiatric: Psychiatric: Reports no additional psychiatric complaints Endocrine: Endocrine: Reports no additional endocrine complaints PMFSH Past Medical History Medical History Chronic renal disease, stage IV Colitis Hypercholesteremia Hypertension Osteoarthritis Surgical History Surgical History H/O: hysterectomy History of left shoulder replacement History of orthopedic surgery bilateral wrist Social History Social History Alcohol intake: never Substance use: never Substance use type: does not use Do You Feel Safe in your Home?: Yes Lack of Transportation: No Lack of Food: Never True Current Housing: I Have Housing Concerned About Future Housing: No Difficulty Paying Gas/Electric Bills: No Difficulty Paying for Meds: No Currently Unemployed: No Education: High School Diploma/GED Difficulty w/ Childcare or Family Care: No Spiritual care concerns: No Meds Home Medications and Allergies Home Medications Medication Instructions Recorded Confirmed Type atenolol 25 mg tablet 25 mg PO DAILY 04/18/22 02/24/24 History atorvastatin 20 mg tablet 20 mg PO HS 04/18/22 02/24/24 History bupropion HCl 150 mg 24 hr tablet, 150 mg PO DAILY 04/18/22 02/24/24 History extended release (Wellbutrin XL) loratadine 10 mg tablet (Claritin) 10 mg PO DAILY PRN Allergy Symptoms 04/18/22 02/24/24 History Allergies Allergy/AdvReac Type Severity Reaction Status Date / Time No Known Allergies Allergy Verified 02/23/24 14:24 Vital Signs Vital Signs - 24 hr 02/25/24 14:00 02/25/24 20:13 02/26/24 05:07 Temperature 99.0 F 99.7 F H 98.9 F Pulse Rate 82 85 78 Respiratory Rate 15 16 12 Blood Pressure 114/97 H 113/64 127/68 Pulse Oximetry 100 98 100 02/26/24 10:35 02/26/24 10:57 Temperature 97.1 F L 97.2 F L Pulse Rate 76 78 Respiratory Rate 16 16 Blood Pressure 118/67 123/71 Pulse Oximetry 99 99 Exam Narrative: Exam Narrative: Well developed well-nourished female in no acute distress Skin is warm and dry without rash Head normocephalic atraumatic Eyes normal sclerae and conjunctivae Mouth normal lips teeth and gums Neck no nodes no thyromegaly no carotid bruits Axillae no nodes Back no CVA tenderness Lungs symmetric and clear to auscultation and percussion Heart regular rate and rhythm without rub or gallop Abdomen bowel sounds positive soft nontender, no HSM, masses, or bruits. Extremities no cyanosis, clubbing, or edema Pulses 2+ equal in radial arteries Psychological not anxious or depressed Neuro alert and oriented x3 Chvostek negativemotor 5/5 cranial nerves 2-12 intact reflexes 2+ and equal in the biceps and patellar tendons cerebellar normal rapid alternating movements Results Lab Results 02/26/24 06:42 02/26/24 05:20 Lab results: Most recent lab results Calcium 5.7 mg/dL (8.4-10.2) L* 02/26/24 05:20 Phosphorus 4.2 mg/dL (2.5-4.5) 02/25/24 05:15 Magnesium 1.3 mg/dL (1.6-2.3) L 02/26/24 05:20
[2024-02-26] MEDS: CALCIUM CARBONATE (TUMS) 500 MG (200 MG ELEMENTAL) 400 MG PO ×2 (13:24→16:54)
--- NOTE | 2024-02-26 14:49 | PC.NURSE ---
On 02/26/24, the student, [Carolina Dale], provided care and completed [facility] documentation on this patient. I have reviewed the student's documentation and agree with the findings.
[2024-02-26 17:13] LABS: Basophils Percent Auto 0.2 % (0.2-1.2); Eosinophils Absolute Auto 0.1 K/mm3 (0-0.3); Eosinophils Percent Auto 0.4 % (0-4.4); Hematocrit 28.9 % (37.0-47.0); Hemoglobin 9.5 g/dL (12.0-15.0); Immature Granulocyte Absolute 0.61 K/mm3 (0.00-0.031); Immature Granulocyte Percent A 3.8 % (0-0.5); Lymphocytes Absolute Auto 1.33 K/mm3 (0.9-3.2); Lymphocytes Percent Auto 8.2 % (18.3-44.2); Mean Corpuscular HGB Conc 32.9 g/dl (32-36); Mean Corpuscular Hemoglobin 30.8 pg (26-34); Mean Corpuscular Volume 93.8 fl (80-100); Mean Platelet Volume 10.7 fl (7.4-10.4); Monocytes Absolute Auto 1.3 K/mm3 (0.1-0.6); Monocytes Percent Auto 7.9 % (2.6-8.5); Neutrophils Absolute Auto 12.9 K/mm3 (1.3-6.7); Neutrophils Percent Auto 79.5 % (45.5-73.1); Platelet Count Result 310 k/mm3 (150-375); Red Blood Count 3.08 M/mm3 (4.2-5.4); Red Cell Distribution Width 15.3 % (11.5-14.5); White Blood Count 16.2 K/mm3 (4.5-10.0)
[2024-02-26 17:22] LABS: Calcium 6.7 mg/dL (8.4-10.2); Magnesium 2.4 mg/dL (1.6-2.3)
[2024-02-26] MEDS: ATORVASTATIN 20 MG TABLET PO (21:39)
[2024-02-26] MEDS: ACETAMINOPHEN 500 MG TABLET 1000 MG PO (23:00)
[2024-02-27 05:22] VITALS: BP 120/59; PULSE 69; RESP 16; TEMP 36.3; O2SAT 99
[2024-02-27 05:43] LABS: Basophils Percent Auto 0.2 % (0.2-1.2); Eosinophils Absolute Auto 0.1 K/mm3 (0-0.3); Eosinophils Percent Auto 0.8 % (0-4.4); Hematocrit 23.4 % (37.0-47.0); Hemoglobin 7.7 g/dL (12.0-15.0); Immature Granulocyte Absolute 0.47 K/mm3 (0.00-0.031); Immature Granulocyte Percent A 3.9 % (0-0.5); Lymphocytes Absolute Auto 1.57 K/mm3 (0.9-3.2); Mean Corpuscular HGB Conc 32.9 g/dl (32-36); Mean Corpuscular Hemoglobin 30.6 pg (26-34); Mean Corpuscular Volume 92.9 fl (80-100); Mean Platelet Volume 11.1 fl (7.4-10.4); Monocytes Absolute Auto 0.9 K/mm3 (0.1-0.6); Monocytes Percent Auto 7.4 % (2.6-8.5); Neutrophils Percent Auto 74.7 % (45.5-73.1); Platelet Count Result 282 k/mm3 (150-375); Red Blood Count 2.52 M/mm3 (4.2-5.4); Red Cell Distribution Width 15.1 % (11.5-14.5); White Blood Count 12.1 K/mm3 (4.5-10.0)
[2024-02-27 05:48] LABS: Magnesium 1.9 mg/dL (1.6-2.3)
[2024-02-27 05:57] LABS: Alanine Aminotransferase 101 U/L (6-35); Albumin Level 2.4 g/dL (3.5-5.1); Alkaline Phosphatase 132 U/L (38-126); Anion Gap 8 mmol/L (4-12); Aspartate Amino Transferase 168 U/L (14-36); Bilirubin,Total 0.7 mg/dL (0.2-1.3); Blood Urea Nitrogen 17 mg/dL (7-17); Carbon Dioxide 20 mmol/L (22-30); Chloride 107 mmol/L (98-107); Estimated CRCL calculation 26 ml/min; Estimated Glomerular Filt Rate 32; Glucose 93 mg/dL (65-110); Phosphorus 3.6 mg/dL (2.5-4.5); Potassium 3.3 mmol/L (3.4-5.0); Sodium 135 mmol/L (137-145)
[2024-02-27] MEDS: CALCIUM GLUC 2,000 MG/NS 100ML 2,000 MG/100 ML BAG 100 MG IVPB (06:17)
[2024-02-27] MEDS: calcitrioL 0.25 MCG CAPSULE PO ×2 (08:26→16:24)
[2024-02-27] MEDS: PANTOPRAZOLE 40 MG TABLET PO ×2 (08:26→20:30)
[2024-02-27] MEDS: SENNA/DOCUSATE SODIUM TABLET 1 TAB PO ×2 (08:26→16:24)
[2024-02-27] MEDS: buPROPion HCL XL (24 HR) 150 MG TABCR PO (08:26)
[2024-02-27] MEDS: polyethylene glycoL 3350 17 GM POWD.PACK PO (08:26)
[2024-02-27] MEDS: ACETAMINOPHEN 500 MG TABLET 1000 MG PO (08:27)
[2024-02-27] MEDS: CALCIUM CARBONATE (TUMS) 500 MG (200 MG ELEMENTAL) 400 MG PO ×3 (08:27→16:24)
[2024-02-27] MEDS: POTASSIUM CHLORIDE 20 MEQ ER TABLET 40 MEQ PO (08:36)
[2024-02-27 11:36] LABS: Creatinine Urine 39.1 mg/dL
[2024-02-27 11:40] LABS: Basophils Percent Auto 0.3 % (0.2-1.2); Eosinophils Absolute Auto 0.1 K/mm3 (0-0.3); Eosinophils Percent Auto 0.8 % (0-4.4); Hemoglobin 8.4 g/dL (12.0-15.0); Immature Granulocyte Percent A 3.4 % (0-0.5); Lymphocytes Percent Auto 8.4 % (18.3-44.2); Mean Corpuscular HGB Conc 32.3 g/dl (32-36); Mean Corpuscular Hemoglobin 30.2 pg (26-34); Mean Corpuscular Volume 93.5 fl (80-100); Mean Platelet Volume 10.5 fl (7.4-10.4); Monocytes Percent Auto 8.1 % (2.6-8.5); Neutrophils Absolute Auto 9.4 K/mm3 (1.3-6.7); Platelet Count Result 299 k/mm3 (150-375); Red Blood Count 2.78 M/mm3 (4.2-5.4); White Blood Count 11.9 K/mm3 (4.5-10.0)
--- NOTE | 2024-02-27 11:46 | P.PNIM_ITS ---
Progress Note: A&P Assessment and Plan (1) Acute UTI: Code(s): N39.0 - Urinary tract infection, site not specified Status: Acute Assessment and Plan: - UA consistent with UTI. - Blood culture no growth to date - Urine culture grew E. Coli. - Switched to Cephalexin 250 mg PO q 12. - Follow cultures. (2) Chronic kidney disease (CKD): Qualifiers: Chronic kidney disease stage: stage 4 (severe) Qualified Code(s): N18.4 - Chronic kidney disease, stage 4 (severe) Code(s): N18.9 - Chronic kidney disease, unspecified Status: Acute Assessment and Plan: - Possibly JT on CKD. - Renal function improving with IVF hydration 2.8>>2.4>>2.00>>1.60. - No prior or labs for baseline comparison - Avoid nephrotoxic agents. - Given 1 L of NS in emergency room - continue to monitor renal function closely. - Nephrology consult (3) Hypoparathyroidism: Code(s): E20.9 - Hypoparathyroidism, unspecified Status: Acute Assessment and Plan: * Patient reports being diagnosed in 1978 but has not seen Training Development Manager in years. * Calcium 7.0 last. * Calcium Gluconate 1,000 mg IVPB given. * Receiving Calcitrol and oral calcium. * Monitor labs. * Nephrology following. 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 * Transfused 1 unit of PRBC's on 02/26/24. Last blood count 8.4/26.0. * Guaiac stool. * Iron <10, TIBC 173, % saturation <6. Patient will need iron infusions once she has completed antibiotics. * Monitor labs. (5) Acute kidney injury: Code(s): N17.9 - Acute kidney failure, unspecified Status: Acute Assessment and Plan: * Renal function improving with IVF hydration 2.8>>2.4>>2.00>>1.60. * Monitor labs * Encourage hydration. (6) Hypocalcemia due to chronic kidney disease: Code(s): E83.51 - Hypocalcemia; N18.9 - Chronic kidney disease, unspecified Status: Acute Assessment and Plan: * Calcium 7.0 in afternoon * Gave Calcium Gluconate 1,000 mg IVPB given. * Ionized calcium 3.8. * CT abdomen showed mild diffuse osseous sclerosis. * Bone scan: FINDINGS: There is disc-centered increased activity in lumbar spine correlating with severe degenerative disc disease by CT. There is joint-centered increased activity in the wrists and left hand without radiographic comparison, likely osteoarthritis. IMPRESSION: 1. No specific evidence of malignancy. (7) Hypomagnesemia: Code(s): E83.42 - Hypomagnesemia Status: Acute Assessment and Plan: * Magnesium 1.9, improved. * Monitor level. (8) Kidney lesion, lyt[place], bilateral: Code(s): N28.9 - Disorder of kidney and ureter, unspecified Status: Acute Assessment and Plan: - CT abd/pelvis showing possible dalila renal lesions. - Advised to follow-up outpatient MRI w/wo contrast after discharge. (9) Hypertension: Code(s): I10 - Essential (primary) hypertension Status: Acute Assessment and Plan: - BP 120/59. - Home meds on hold. - Echo showed: Summary 1. Complete two-dimensional, color flow and Doppler transthoracic echocardiogram is performed. 2. Left ventricular systolic function is normal, estimated at 60-65%. 3. There is mild mitral valve regurgitation. 4. There is mild tricuspid valve regurgitation. 5. No pulmonary hypertension, estimated pulmonary arterial systolic pressure is 36 mmHg. 6. There is mild pulmonic regurgitation. (10) Hypokalemia: Code(s): E87.6 - Hypokalemia Status: Acute Assessment and Plan: * Potassium 3.3. * Potassium 40 meq PO x1. * Monitor labs. (11) Depression: Code(s): F32.A - Depression, unspecified Status: Acute Assessment and Plan: - Resume bupropion. Subjective Date/time seen: 02/27/24 11:46 Interval history: Patient reports pain in joints is a 6 , constant, and aching. Patient denies chest pain, palpitations, headache, dizziness, nausea, or vomiting. Review of Systems Review of Systems: All systems reviewed & are unremarkable except as noted in HPI and below Exam Const: General: no acute distress and uncomfortable Resp: Effort & Inspection: normal respiratory effort Auscultation: clear to auscultation bilaterally Cardio: Rate: regular rate Rhythm: regular rhythm GI: GI Palp: Yes Soft to palpation Auscultation: normal bowel sounds Other: Last BM 02/27/24. Skin: Other: Warm and dry. Bruising and skin tears to dalila. UE and bruising to dalila. LE. Neuro: Speech: normal speech Extrem: General: normal to inspection Psych: Mental Status: mental status grossly normal Affect: normal affect Objective Data Vital Signs Vital Signs: Vital Signs - 24 hr 02/26/24 11:57 02/26/24 12:57 02/26/24 13:15 Temperature 97.5 F L 97.2 F L 97.2 F L Pulse Rate 76 85 83 Respiratory Rate 16 16 16 Blood Pressure 130/70 115/58 L 127/67 Pulse Oximetry 99 98 100 Oxygen Delivery 02/26/24 14:00 02/26/24 14:12 02/26/24 20:14 Temperature 97.9 F 99.3 F Pulse Rate 81 95 Respiratory Rate 15 16 Blood Pressure 141/78 H 128/78 Pulse Oximetry 100 96 Oxygen Delivery Room Air 02/27/24 05:22 02/27/24 08:42 Temperature 97.4 F L Pulse Rate 69 Respiratory Rate 16 Blood Pressure 120/59 L Pulse Oximetry 99 Oxygen Delivery Room Air Intake/Output Intake/Output: Intake & Output 02/24/24 02/25/24 02/26/24 02/27/24 23:59 23:59 23:59 23:59 Intake Total 1010 2924 3775 670 Output Total 125 1225 1070 300 Balance 885 1849 2705 370 Meds/Results Medications: Active Medications Generic Name Dose Route Start Last Admin Trade Name Freq PRN Reason Stop Dose Admin Acetaminophen 1,000 mg 02/24/24 01:19 02/27/24 08:27 Acetaminophen 500 Mg Tablet PO 1,000 mg Q6H PRN Administration Mild Pain (1-3) or Fever Al Hydrox/Mg Hydrox/Simethicone 30 ml 02/24/24 00:06 Mag Hydrox/Al Hydrox/Simeth 30 Ml Udc PO Q6H PRN Indigestion Atorvastatin Calcium 20 mg 02/24/24 21:00 02/26/24 21:39 Atorvastatin 20 Mg Tablet PO 20 mg HS LORNA Administration Bupropion HCl 150 mg 02/25/24 09:00 02/27/24 08:26 Bupropion Hcl Xl (24 Hr) 150 Mg Tabcr PO 150 mg QAM LORNA Administration Calcitriol 0.25 mcg 02/26/24 09:00 02/27/24 08:26 Calcitriol 0.25 Mcg Capsule PO 0.25 mcg BID LORNA Administration Calcium Carbonate 400 mg 02/26/24 13:00 02/27/24 08:27 Calcium Carbonate (Tums) 500 Mg (200 Mg Elemental) PO 400 mg TID LORNA Administration Ceftriaxone Sodium 1 gm in 50 mls @ 100 mls/hr 02/24/24 09:00 02/27/24 09:03 Rocephin 1 Gm/Ns 50 Ml IVPB Infused Q24H LORNA Infusion Loratadine 10 mg 02/24/24 13:06 Loratadine 10 Mg Tablet PO DAILY PRN Allergy Symptoms Ondansetron HCl 4 mg 02/24/24 00:06 Ondansetron Inj 4 Mg/2 Ml Vial IV PUSH Q6H PRN Nausea And Vomiting Pantoprazole Sodium 40 mg 02/26/24 09:00 02/27/24 08:26 Pantoprazole 40 Mg Tablet PO 40 mg Q12HR LORNA Administration Perflutren Lipid Microsphere 0 ml 02/24/24 12:57 Perflutren Lipid Microspheres 1.5 Ml Vial Diluted To 10 Ml Total Volume IV PUSH 02/27/24 12:58 ONCE PRN adequate visualization Protocol Polyethylene Glycol 17 gm 02/25/24 09:45 02/27/24 08:26 Polyethylene Glycol 3350 17 Gm Powd.Pack PO 17 gm QAM LORNA Administration Senna/Docusate Sodium 1 tab 02/25/24 09:45 02/27/24 08:26 Senna/Docusate Sodium Tablet PO 1 tab BID LORNA Administration Radiology Results: ITS Impressions Head CT 02/23/24 15:26 IMPRESSION: No acute intracranial process. Chest X-Ray 02/23/24 15:38 IMPRESSION: No acute cardiopulmonary process. Hip/Pelvis X-Ray 02/23/24 15:42 IMPRESSION: Possible nondisplaced right obturator ring fracture. Cervical Spine CT 02/23/24 15:59 IMPRESSION: No acute fracture or traumatic malalignment in the cervical spine. Lumbar Spine CT 02/23/24 16:15 IMPRESSION: No acute fracture or traumatic malalignment in the lumbar spine. Indeterminate density left renal lesion versus lobulated renal contour. Recommend nonemergent but timely outpatient CT or MRI without and with contrast for further evaluation. Abdomen/Pelvis CT 02/23/24 18:46 IMPRESSION: No acute abdominopelvic process detected. No pelvic fracture identified, prior radiograph findings likely related to artifact Possible bilateral renal lesions, may represent hemorrhagic/proteinaceous cysts, other renal mass, or artifact. Given renal function, consider nonemergent but timely renal MRI without and with contrast. Suggestion of mild diffuse osseous sclerosis as can be seen with myelofibrosis, mastocytosis, leukemia, lymphoma, sickle cell anemia, metabolic processes such as renal osteodystrophy and others entities. Bone Scan Nuclear Medicine 02/25/24 14:34 IMPRESSION: 1. No specific evidence of malignancy. Labs Labs: Laboratory Results - last 24 hr 02/26/24 02/26/24 02/26/24 06:42 08:55 17:08 WBC 16.2 H RBC 3.08 L Hgb 9.5 L Hct 28.9 L MCV 93.8 MCH 30.8 MCHC 32.9 RDW 15.3 H Plt Count 310 MPV 10.7 H Immature Gran % (Auto) 3.8 H Neut % (Auto) 79.5 H Lymph % (Auto) 8.2 L Hale % (Auto) 7.9 Eos % (Auto) 0.4 Baso % (Auto) 0.2 Lymph # (Auto) 1.33 Hale # (Auto) 1.3 H Eos # (Auto) 0.1 Baso # (Auto) 0.0 Abs Immat Gran (auto) 0.61 H Absolute Neuts (auto) 12.9 H Absolute Nucleated RBC 0.000 Nucleated RBC % 0.0 Sodium Potassium Chloride Carbon Dioxide Anion Gap BUN Creatinine Estim Creat Clear Calc Estimated GFR Glucose Calcium 6.7 L Phosphorus Magnesium 2.4 H Total Bilirubin AST ALT Alkaline Phosphatase Total Protein Albumin Urine Creatinine 39.1 Crossmatch See Detail 02/27/24 02/27/24 03:51 11:31 WBC 12.1 H 11.9 H RBC 2.52 L 2.78 L Hgb 7.7 L 8.4 L Hct 23.4 L 26.0 L MCV 92.9 93.5 MCH 30.6 30.2 MCHC 32.9 32.3 RDW 15.1 H 15.0 H Plt Count 282 299 MPV 11.1 H 10.5 H Immature Gran % (Auto) 3.9 H 3.4 H Neut % (Auto) 74.7 H 79.0 H Lymph % (Auto) 13.0 L 8.4 L Hale % (Auto) 7.4 8.1 Eos % (Auto) 0.8 0.8 Baso % (Auto) 0.2 0.3 Lymph # (Auto) 1.57 1.00 Hale # (Auto) 0.9 H 1.0 H Eos # (Auto) 0.1 0.1 Baso # (Auto) 0.0 0.0 Abs Immat Gran (auto) 0.47 H 0.40 H Absolute Neuts (auto) 9.0 H 9.4 H Absolute Nucleated RBC 0.000 0.000 Nucleated RBC % 0.0 0.0 Sodium 135 L Potassium 3.3 L Chloride 107 Carbon Dioxide 20 L Anion Gap 8 BUN 17 Creatinine 1.60 H Estim Creat Clear Calc 26 Estimated GFR 32 L Glucose 93 Calcium 6.0 L Phosphorus 3.6 Magnesium 1.9 Total Bilirubin 0.7 AST 168 H ALT 101 H Alkaline Phosphatase 132 H Total Protein 5.0 L Albumin 2.4 L Urine Creatinine Crossmatch Quality VTE Prophylaxis VTE prophylaxis: mechanical ordered
--- NOTE | 2024-02-27 13:47 | PM.PNNEP ---
Progress Note: A&P Assessment and Plan (1) Acute kidney injury: Code(s): N17.9 - Acute kidney failure, unspecified Status: Acute Assessment and Plan: resolved if not resolving insult likely due to volume depletion and UTI along with anemia continue supportive therapy (2) Chronic kidney disease (CKD): Qualifiers: Chronic kidney disease stage: stage 4 (severe) Qualified Code(s): N18.4 - Chronic kidney disease, stage 4 (severe) Code(s): N18.9 - Chronic kidney disease, unspecified Status: Acute Assessment and Plan: reportedly has CKD stage 4 however, current creatinine/GFR seems significantly better than this presumably due to HTN possibly she has lost weight and muscle mass and with lying in bed sometimes the creatinine turnover lessens and the creatinine can improve... (3) Acute UTI: Code(s): N39.0 - Urinary tract infection, site not specified Status: Acute Assessment and Plan: admission UA suggestive urine culture results noted on antibiotics (4) Erythropoietin deficiency anemia: Code(s): D63.1 - Anemia in chronic kidney disease Status: Acute Assessment and Plan: H/H better s/p transfusion noted iron deficiency follow trend of H/H (5) Hypoparathyroidism: Code(s): E20.9 - Hypoparathyroidism, unspecified Status: Acute Assessment and Plan: on calcitriol and calcium supplements follow trend of serum calcium (6) Hypertension: Code(s): I10 - Essential (primary) hypertension Status: Acute Assessment and Plan: reasonable control follow trend of hemodynamics Will continue to follow. Subjective Date/time seen: 02/27/24 13:47 Interval history: Follow-up for acute kidney injury/acute renal failure on chronic kidney disease. Chart reviewed -- assuming care from Dr. Barboza; renal function/creatinine continues to do quite well in comparison to reported baseline CKD; she otherwise feels quite well; no apparent distress noted. Exam Narrative: General: WD/WN female in NAD Heart: normal S1 and S2; no rub Lungs: clear to auscultation Abdomen: soft, nontender, nondistended, positive bowel sounds Extremities: no cyanosis or clubbing; no edema Skin: warm and dry Objective Data Vital Signs Vital Signs: Vital Signs - 24 hr 02/26/24 22:00 02/26/24 23:57 11/13/24 06:00 Temperature 99.7 F H 99.1 F 98.8 F Pulse Rate 110 H 98 Respiratory Rate 18 18 Blood Pressure 133/83 124/81 Pulse Oximetry 97 97 02/27/24 13:00 Temperature 97.6 F Pulse Rate 73 Respiratory Rate 14 Blood Pressure 122/70 Pulse Oximetry 99 Intake/Output Intake/Output: Intake & Output 02/25/24 02/26/24 02/27/24 02/28/24 23:59 23:59 23:59 23:59 Intake Total 2924 3775 910 1810 Output Total 1225 1070 900 500 Balance 1699 2705 10 1310 Meds/Results Medications: Active Medications Generic Name Dose Route Start Last Admin Trade Name Freq PRN Reason Stop Dose Admin Acetaminophen 1,000 mg 02/24/24 01:19 02/28/24 16:35 Acetaminophen 500 Mg Tablet PO 1,000 mg Q6H PRN Administration Mild Pain (1-3) or Fever Al Hydrox/Mg Hydrox/Simethicone 30 ml 02/24/24 00:06 Mag Hydrox/Al Hydrox/Simeth 30 Ml Udc PO Q6H PRN Indigestion Atorvastatin Calcium 20 mg 02/24/24 21:00 02/27/24 20:30 Atorvastatin 20 Mg Tablet PO 20 mg HS LORNA Administration Bupropion HCl 150 mg 02/25/24 09:00 02/28/24 08:25 Bupropion Hcl Xl (24 Hr) 150 Mg Tabcr PO 150 mg QAM LORNA Administration Calcitriol 0.25 mcg 02/26/24 09:00 02/28/24 16:36 Calcitriol 0.25 Mcg Capsule PO 0.25 mcg BID LORNA Administration Calcium Carbonate 400 mg 02/26/24 13:00 02/28/24 16:36 Calcium Carbonate (Tums) 500 Mg (200 Mg Elemental) PO 400 mg TID LORNA Administration Cephalexin HCl 250 mg 02/28/24 09:00 02/28/24 08:25 Cephalexin 250 Mg Capsule PO 02/29/24 21:01 250 mg Q12HR LORNA Administration Loratadine 10 mg 02/24/24 13:06 Loratadine 10 Mg Tablet PO DAILY PRN Allergy Symptoms Melatonin 3 mg 02/28/24 22:56 Melatonin 3 Mg Tablet PO HS PRN Insomnia Ondansetron HCl 4 mg 02/24/24 00:06 Ondansetron Inj 4 Mg/2 Ml Vial IV PUSH Q6H PRN Nausea And Vomiting Pantoprazole Sodium 40 mg 02/26/24 09:00 02/28/24 08:25 Pantoprazole 40 Mg Tablet PO 40 mg Q12HR LORNA Administration Polyethylene Glycol 17 gm 02/25/24 09:45 02/28/24 08:23 Polyethylene Glycol 3350 17 Gm Powd.Pack PO 17 gm QAM LORNA Administration Senna/Docusate Sodium 1 tab 02/25/24 09:45 02/28/24 16:36 Senna/Docusate Sodium Tablet PO Not Given BID [facility] Radiology Results: ITS Impressions Head CT 02/23/24 15:26 IMPRESSION: No acute intracranial process. Chest X-Ray 02/23/24 15:38 IMPRESSION: No acute cardiopulmonary process. Hip/Pelvis X-Ray 02/23/24 15:42 IMPRESSION: Possible nondisplaced right obturator ring fracture. Cervical Spine CT 02/23/24 15:59 IMPRESSION: No acute fracture or traumatic malalignment in the cervical spine. Lumbar Spine CT 02/23/24 16:15 IMPRESSION: No acute fracture or traumatic malalignment in the lumbar spine. Indeterminate density left renal lesion versus lobulated renal contour. Recommend nonemergent but timely outpatient CT or MRI without and with contrast for further evaluation. Abdomen/Pelvis CT 02/23/24 18:46 IMPRESSION: No acute abdominopelvic process detected. No pelvic fracture identified, prior radiograph findings likely related to artifact Possible bilateral renal lesions, may represent hemorrhagic/proteinaceous cysts, other renal mass, or artifact. Given renal function, consider nonemergent but timely renal MRI without and with contrast. Suggestion of mild diffuse osseous sclerosis as can be seen with myelofibrosis, mastocytosis, leukemia, lymphoma, sickle cell anemia, metabolic processes such as renal osteodystrophy and others entities. Bone Scan Nuclear Medicine 02/25/24 14:34 IMPRESSION: 1. No specific evidence of malignancy. Labs Labs: Laboratory Results - last 24 hr 02/27/24 03:51 WBC 12.1 H Hgb 7.7 L Hct 23.4 L Plt Count 282 Sodium 135 L Potassium 3.3 L Chloride 107 Carbon Dioxide 20 L Anion Gap 8 BUN 17 Creatinine 1.60 H Estim Creat Clear Calc 26 Estimated GFR 32 L Glucose 93 Calcium 6.0 L Phosphorus 3.6 Magnesium 1.9 Total Bilirubin 0.7 AST 168 H ALT 101 H Alkaline Phosphatase 132 H Total Protein 5.0 L Albumin 2.4 L
[2024-02-27 14:00] VITALS: BP 130/73; PULSE 80; RESP 16; TEMP 36.1; O2SAT 100
[2024-02-27] MEDS: CALCIUM GLUC 1,000 MG/NS 50 ML 1,000 MG/50 ML BAG 100 MG IVPB (16:24)
[2024-02-27 19:01] LABS: Creatinine 24 Hour Urine 0.7 gm/24 (0.8-1.8); Total Volume 24 Hour Urine 1800 ml
[2024-02-27] MEDS: ATORVASTATIN 20 MG TABLET PO (20:30)
[2024-02-27 22:00] VITALS: BP 133/83; PULSE 110; RESP 18; TEMP 37.6; O2SAT 97
[2024-02-27 23:57] VITALS: TEMP 37.3
--- NOTE | 2024-02-28 00:48 | PC.NURSE ---
Provider ordered random urine tests and stool occult test documented as collected, results never posted and auto-canceled by system. Cancelled tests have been reordered and pending collection.
[2024-02-28 02:35] LABS: Sodium Urine Random 96 meq/L
[2024-02-28 02:40] LABS: Creatinine Urine 56.8 mg/dL; Total Protein Urine Random 29 mg/dL; Ur Ttl Prot Creatinine Ratio 0.51 mg/mg (0-0.20)
[2024-02-28 06:00] VITALS: BP 124/81; PULSE 98; RESP 18; TEMP 37.1; O2SAT 97
[2024-02-28 06:01] LABS: Basophils Percent Auto 0.3 % (0.2-1.2); Eosinophils Absolute Auto 0.1 K/mm3 (0-0.3); Eosinophils Percent Auto 0.7 % (0-4.4); Hematocrit 26.7 % (37.0-47.0); Hemoglobin 8.5 g/dL (12.0-15.0); Lymphocytes Absolute Auto 1.73 K/mm3 (0.9-3.2); Mean Corpuscular HGB Conc 31.8 g/dl (32-36); Mean Corpuscular Volume 94.3 fl (80-100); Monocytes Absolute Auto 0.9 K/mm3 (0.1-0.6); Monocytes Percent Auto 6.9 % (2.6-8.5); Neutrophils Absolute Auto 10.1 K/mm3 (1.3-6.7); Neutrophils Percent Auto 76.1 % (45.5-73.1); Platelet Count Result 368 k/mm3 (150-375); Red Blood Count 2.83 M/mm3 (4.2-5.4); White Blood Count 13.3 K/mm3 (4.5-10.0)
[2024-02-28 06:18] LABS: Alanine Aminotransferase 101 U/L (6-35); Albumin Level 2.8 g/dL (3.5-5.1); Alkaline Phosphatase 156 U/L (38-126); Anion Gap 11 mmol/L (4-12); Aspartate Amino Transferase 125 U/L (14-36); Bilirubin,Total 0.7 mg/dL (0.2-1.3); Blood Urea Nitrogen 14 mg/dL (7-17); Calcium 7.2 mg/dL (8.4-10.2); Carbon Dioxide 19 mmol/L (22-30); Chloride 106 mmol/L (98-107); Estimated CRCL calculation 26 ml/min; Estimated Glomerular Filt Rate 32; Glucose 87 mg/dL (65-110); Magnesium 1.4 mg/dL (1.6-2.3); Phosphorus 4.2 mg/dL (2.5-4.5); Potassium 3.9 mmol/L (3.4-5.0); Sodium 136 mmol/L (137-145)
--- NOTE | 2024-02-28 07:30 | P.PNIM_ITS ---
Progress Note: A&P Assessment and Plan (1) Acute UTI: Code(s): N39.0 - Urinary tract infection, site not specified Status: Acute Assessment and Plan: - UA consistent with UTI. - Blood culture no growth to date - Urine culture grew E. Coli. - Switched to Cephalexin 250 mg PO q 12. - Follow cultures. white count increasing on a.m. labs CBC in a.m. (2) Chronic kidney disease (CKD): Qualifiers: Chronic kidney disease stage: stage 4 (severe) Qualified Code(s): N18.4 - Chronic kidney disease, stage 4 (severe) Code(s): N18.9 - Chronic kidney disease, unspecified Status: Acute Assessment and Plan: stable - Possibly JT on CKD. - Renal function improving with IVF hydration 2.8>>2.4>>2.00>>1.60. - No prior or labs for baseline comparison - Avoid nephrotoxic agents. - Given 1 L of NS in emergency room - continue to monitor renal function closely. - Nephrology consult - urine electrolytes, CPK, (3) Hypoparathyroidism: Code(s): E20.9 - Hypoparathyroidism, unspecified Status: Acute Assessment and Plan: * Patient reports being diagnosed in 1978 but has not seen Attending Anesthesiologist in years. * Calcium 7.0 last. * Calcium Gluconate 1,000 mg IVPB given. * Receiving Calcitrol and oral calcium. * Monitor labs. * Nephrology following. 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 * Transfused 1 unit of PRBC's on 02/26/24. Last blood count 8.4/26.0. * Guaiac stool pending * Iron <10, TIBC 173, % saturation <6. Patient will need iron infusions once she has completed antibiotics. * Monitor labs. (5) Acute kidney injury: Code(s): N17.9 - Acute kidney failure, unspecified Status: Acute Assessment and Plan: * Renal function improving with IVF hydration 2.8>>2.4>>2.00>>1.60. * Monitor labs * Encourage hydration. (6) Hypocalcemia due to chronic kidney disease: Code(s): E83.51 - Hypocalcemia; N18.9 - Chronic kidney disease, unspecified Status: Acute Assessment and Plan: * Calcium 7.0 in afternoon * Gave Calcium Gluconate 1,000 mg IVPB given. * Ionized calcium 3.8. * CT abdomen showed mild diffuse osseous sclerosis. * Bone scan: FINDINGS: There is disc-centered increased activity in lumbar spine correlating with severe degenerative disc disease by CT. There is joint-centered increased activity in the wrists and left hand without radiographic comparison, likely osteoarthritis. IMPRESSION: 1. No specific evidence of malignancy. (7) Hypomagnesemia: Code(s): E83.42 - Hypomagnesemia Status: Acute Assessment and Plan: * Magnesium 1.9, improved. * Monitor level. * replete as needed (8) Kidney lesion, [place], bilateral: Code(s): N28.9 - Disorder of kidney and ureter, unspecified Status: Acute Assessment and Plan: - CT abd/pelvis showing possible dalila renal lesions. - Advised to follow-up outpatient MRI w/wo contrast after discharge. (9) Hypertension: Code(s): I10 - Essential (primary) hypertension Status: Acute Assessment and Plan: - BP 120/59. - Home meds on hold. - Echo showed: Summary 1. Complete two-dimensional, color flow and Doppler transthoracic echocardiogram is performed. 2. Left ventricular systolic function is normal, estimated at 60-65%. 3. There is mild mitral valve regurgitation. 4. There is mild tricuspid valve regurgitation. 5. No pulmonary hypertension, estimated pulmonary arterial systolic pressure is 36 mmHg. 6. There is mild pulmonic regurgitation. (10) Hypokalemia: Code(s): E87.6 - Hypokalemia Status: Acute Assessment and Plan: improving * Potassium 3.3. * Potassium 40 meq PO x1. * Monitor labs. (11) Depression: Code(s): F32.A - Depression, unspecified Status: Acute Assessment and Plan: - Resume bupropion. Time Spent With Patient Time with patient: Greater than 35 minutes Subjective Date/time seen: 02/28/24 07:30 Interval history: 68-year-old with past medical history significant for chronic kidney disease, colitis, hypercholesteremia, hypertension, DJD. Patient presents to the emergency room with UTI leukocytosis increasing this morning at 13.3, creatinine stable, AST stable ALT, and alkaline phos continue to rise complex cultures with no growth today. Rocephin changed to Keflex yesterday will continue to watch wbc's Review of Systems Review of Systems: Recurrent falls, generalized weakness, diarrhea All systems reviewed & are unremarkable except as noted in HPI and below Constitutional: Constitutional: Denies chills, Denies fever(s), Reports frequent falls, Reports malaise, Denies night sweats and Reports weakness Neurologic: Reports frequent falls and Reports weakness Exam Narrative: HEENT: Atraumatic, PERRL, EOM, moist mucus membrans. NECK: Supple. Lungs: Clear bilaterally. Heart: RRR, no murmurs. Abdomen: Soft, non-tender, non-distended, +ve bowel sounds X4 quadrants. Extremities: Multiple bruises to dalila arms with some skin tears. Bruising to dalila. LE, 2+ pedal pulses. Skin: Warm and dry. Bruising and skin tears to dalila. UE and bruising to dalila. LE. Neuro: Appears slightly confused, only oriented to self and location. No focal neuro deficits noted. Psych: Pleasant and co-operative. Const: General: comfortable, no acute distress, well developed, alert, awake, uncomfortable and average body habitus Nutritional Appearance: average body habitus Orientation/consciousness: patient oriented x3 Other: bruises distributed on limbs lower lip laceration HENMT: Head: normal to inspection, normocephalic and atraumatic Ears: hearing grossly normal bilaterally Face/Nose/Sinus: normal facial exam Face and sinus: normal facial exam Eyes: General: appearance normal, both eyes and all related structures Pupils: Equal, round and reactive pupils present EOM: EOMs intact bilaterally Neck: Neck: full ROM, no lymphadenopathy and no JVD Thyroid: thyroid normal Lymphatic: no lymphadenopathy noted Resp: Effort & Inspection: normal respiratory effort and able to speak in complete sentences Auscultation: clear to auscultation bilaterally Cardio: Jugular venous distension: no JVD Rate: regular rate Rhythm: regular rhythm Heart sounds: S1 normal heart sound present and S2 normal heart sound present GI: Auscultation: normal bowel sounds Other: Last BM 02/27/24. : General: Yes deferred Skin: Rashes: no rashes Wounds: no wounds Other: Warm and dry. Bruising and skin tears to dalila. UE and bruising to dalila. LE. Neuro: General: patient oriented x3 and CN's II-XI intact bilaterally Cran ial nerves: Yes CN's II-XII intact bilaterally and Yes Equal, round and reactive pupils present Cognition (Neuro): normal cognition Speech: normal speech Gait exam (Neuro): Normal gait present Motor exam (neuro): 5/5 motor strength present throughout Extrem: General: normal to inspection, full ROM, no joint enlargement and no pedal edema Psych: Mental Status: mental status grossly normal Affect: normal affect Objective Data Vital Signs Vital Signs: Vital Signs - 24 hr 02/27/24 08:42 02/27/24 14:00 02/27/24 22:00 Temperature 97.0 F L 99.7 F H Pulse Rate 80 110 H Respiratory Rate 16 18 Blood Pressure 130/73 133/83 Pulse Oximetry 100 97 Oxygen Delivery Room Air 02/27/24 23:57 02/28/24 06:00 Temperature 99.1 F 98.8 F Pulse Rate 98 Respiratory Rate 18 Blood Pressure 124/81 Pulse Oximetry 97 Oxygen Delivery Intake/Output Intake/Output: Intake & Output 02/25/24 02/26/24 02/27/24 02/28/24 23:59 23:59 23:59 23:59 Intake Total 2924 3775 910 Output Total 1225 1070 900 100 Balance 1699 6995 10 -100 Meds/Results Medications: Active Medications Generic Name Dose Route Start Last Admin Trade Name Freq PRN Reason Stop Dose Admin Acetaminophen 1,000 mg 02/24/24 01:19 02/27/24 08:27 Acetaminophen 500 Mg Tablet PO 1,000 mg Q6H PRN Administration Mild Pain (1-3) or Fever Al Hydrox/Mg Hydrox/Simethicone 30 ml 02/24/24 00:06 Mag Hydrox/Al Hydrox/Simeth 30 Ml Udc PO Q6H PRN Indigestion Atorvastatin Calcium 20 mg 02/24/24 21:00 02/27/24 20:30 Atorvastatin 20 Mg Tablet PO 20 mg HS LORNA Administration Bupropion HCl 150 mg 02/25/24 09:00 02/27/24 08:26 Bupropion Hcl Xl (24 Hr) 150 Mg Tabcr PO 150 mg QAM LORNA Administration Calcitriol 0.25 mcg 02/26/24 09:00 02/27/24 16:24 Calcitriol 0.25 Mcg Capsule PO 0.25 mcg BID LORNA Administration Calcium Carbonate 400 mg 02/26/24 13:00 02/27/24 16:24 Calcium Carbonate (Tums) 500 Mg (200 Mg Elemental) PO 400 mg TID LORNA Administration Cephalexin HCl 250 mg 02/28/24 09:00 Cephalexin 250 Mg Capsule PO 02/29/24 21:01 Q12HR LORNA Loratadine 10 mg 02/24/24 13:06 Loratadine 10 Mg Tablet PO DAILY PRN Allergy Symptoms Melatonin 3 mg 02/28/24 22:56 Melatonin 3 Mg Tablet PO HS PRN Insomnia Ondansetron HCl 4 mg 02/24/24 00:06 Ondansetron Inj 4 Mg/2 Ml Vial IV PUSH Q6H PRN Nausea And Vomiting Pantoprazole Sodium 40 mg 02/26/24 09:00 02/27/24 20:30 Pantoprazole 40 Mg Tablet PO 40 mg Q12HR LORNA Administration Polyethylene Glycol 17 gm 02/25/24 09:45 02/27/24 08:26 Polyethylene Glycol 3350 17 Gm Powd.Pack PO 17 gm QAM LORNA Administration Senna/Docusate Sodium 1 tab 02/25/24 09:45 02/27/24 16:24 Senna/Docusate Sodium Tablet PO 1 tab BID LORNA Administration Radiology Results: ITS Impressions Head CT 02/23/24 15:26 IMPRESSION: No acute intracranial process. Chest X-Ray 02/23/24 15:38 IMPRESSION: No acute cardiopulmonary process. Hip/Pelvis X-Ray 02/23/24 15:42 IMPRESSION: Possible nondisplaced right obturator ring fracture. Cervical Spine CT 02/23/24 15:59 IMPRESSION: No acute fracture or traumatic malalignment in the cervical spine. Lumbar Spine CT 02/23/24 16:15 IMPRESSION: No acute fracture or traumatic malalignment in the lumbar spine. Indeterminate density left renal lesion versus lobulated renal contour. Recommend nonemergent but timely outpatient CT or MRI without and with contrast for further evaluation. Abdomen/Pelvis CT 02/23/24 18:46 IMPRESSION: No acute abdominopelvic process detected. No pelvic fracture identified, prior radiograph findings likely related to artifact Possible bilateral renal lesions, may represent hemorrhagic/proteinaceous cysts, other renal mass, or artifact. Given renal function, consider nonemergent but timely renal MRI without and with contrast. Suggestion of mild diffuse osseous sclerosis as can be seen with myelofibrosis, mastocytosis, leukemia, lymphoma, sickle cell anemia, metabolic processes such as renal osteodystrophy and others entities. Bone Scan Nuclear Medicine 02/25/24 14:34 IMPRESSION: 1. No specific evidence of malignancy. Labs Labs: Laboratory Results - last 24 hr 02/26/24 02/26/24 02/27/24 08:55 08:55 11:31 WBC 11.9 H RBC 2.78 L Hgb 8.4 L Hct 26.0 L MCV 93.5 MCH 30.2 MCHC 32.3 RDW 15.0 H Plt Count 299 MPV 10.5 H Immature Gran % (Auto) 3.4 H Neut % (Auto) 79.0 H Lymph % (Auto) 8.4 L [place] % (Auto) 8.1 Eos % (Auto) 0.8 Baso % (Auto) 0.3 Lymph # (Auto) 1.00 [place] # (Auto) 1.0 H Eos # (Auto) 0.1 Baso # (Auto) 0.0 Abs Immat Gran (auto) 0.40 H Absolute Neuts (auto) 9.4 H Absolute Nucleated RBC 0.000 Nucleated RBC % 0.0 Sodium Potassium Chloride Carbon Dioxide Anion Gap BUN Creatinine Estim Creat Clear Calc Estimated GFR Glucose Calcium 7.0 L Phosphorus Magnesium Total Bilirubin AST ALT Alkaline Phosphatase Total Protein Albumin U Random Total Protein Cancelled Ur Random Sodium Cancelled Ur 24 Hour Volume 1800 Urine Creatinine 39.1 Cancelled Ur Creatinine 24 Hour 0.7 L Protein/Creat Ratio 2 Cancelled 02/28/24 02/28/24 02:11 05:05 WBC 13.3 H RBC 2.83 L Hgb 8.5 L Hct 26.7 L MCV 94.3 MCH 30.0 MCHC 31.8 L RDW 15.0 H Plt Count 368 MPV 11.0 H Immature Gran % (Auto) 3.0 H Neut % (Auto) 76.1 H Lymph % (Auto) 13.0 L [place] % (Auto) 6.9 Eos % (Auto) 0.7 Baso % (Auto) 0.3 Lymph # (Auto) 1.73 [place] # (Auto) 0.9 H Eos # (Auto) 0.1 Baso # (Auto) 0.0 Abs Immat Gran (auto) 0.40 H Absolute Neuts (auto) 10.1 H Absolute Nucleated RBC 0.000 Nucleated RBC % 0.0 Sodium 136 L Potassium 3.9 Chloride 106 Carbon Dioxide 19 L Anion Gap 11 BUN 14 Creatinine 1.60 H Estim Creat Clear Calc 26 Estimated GFR 32 L Glucose 87 Calcium 7.2 L Phosphorus 4.2 Magnesium 1.4 L Total Bilirubin 0.7 AST 125 H ALT 101 H Alkaline Phosphatase 156 H Total Protein 6.0 L Albumin 2.8 L U Random Total Protein 29 Ur Random Sodium 96 Ur 24 Hour Volume Urine Creatinine 56.8 Ur Creatinine 24 Hour Protein/Creat Ratio 2 0.51 H Quality VTE Prophylaxis VTE prophylaxis: mechanical ordered Hospitalist MIPS Advance Care Plan I have confirmed that the patient's Advanced Care Plan is present, code status is documented, or surrogate decision maker is listed in patient medical record.: Yes Medication Reconciliation I have utilized all available resources to obtain, update and review the patients current medications (includes all prescriptions, OTC, herbals, cannabis, and nutritional supplements).: Yes
[2024-02-28 08:14] LABS: Vitamin D 1,25 (OH)2 Total 22 pg/mL (18-72); Vitamin D2 1,25 (OH)2 <8 pg/mL; Vitamin D3 1,25 (OH)2 22 pg/mL
[2024-02-28] MEDS: polyethylene glycoL 3350 17 GM POWD.PACK PO (08:23)
[2024-02-28] MEDS: CALCIUM CARBONATE (TUMS) 500 MG (200 MG ELEMENTAL) 400 MG PO ×3 (08:24→16:36)
[2024-02-28] MEDS: buPROPion HCL XL (24 HR) 150 MG TABCR PO (08:25)
[2024-02-28] MEDS: PANTOPRAZOLE 40 MG TABLET PO ×2 (08:25→20:22)
[2024-02-28] MEDS: SENNA/DOCUSATE SODIUM TABLET 1 TAB PO (08:25)
[2024-02-28] MEDS: calcitrioL 0.25 MCG CAPSULE PO ×2 (08:25→16:36)
[2024-02-28] MEDS: CEPHALEXIN 250 MG CAPSULE PO ×2 (08:25→20:22)
[2024-02-28] MEDS: ACETAMINOPHEN 500 MG TABLET 1000 MG PO ×3 (09:21→23:40)
[2024-02-28] MEDS: MAGNESIUM SULF 2 GM/WATER 50ML 2 GM/50 ML BAG IVPB (11:02)
--- NOTE | 2024-02-28 12:05 | P.PNNP_ITS ---
Progress Note: A&P Assessment and Plan (1) Acute kidney injury: Code(s): N17.9 - Acute kidney failure, unspecified Status: Acute Assessment and Plan: * resolved if not resolving * insult likely due to volume depletion and UTI along with anemia * continue supportive therapy (2) Chronic kidney disease (CKD): Qualifiers: Chronic kidney disease stage: stage 4 (severe) Qualified Code(s): N18.4 - Chronic kidney disease, stage 4 (severe) Code(s): N18.9 - Chronic kidney disease, unspecified Status: Acute Assessment and Plan: * reportedly has CKD stage 4 * however, current creatinine/GFR seems significantly better than this * presumably due to HTN * possibly she has lost weight and muscle mass and with lying in bed sometimes the creatinine turnover lessens and the creatinine can improve... (3) Acute UTI: Code(s): N39.0 - Urinary tract infection, site not specified Status: Acute Assessment and Plan: * admission UA suggestive * urine culture results noted * on antibiotics (4) Erythropoietin deficiency anemia: Code(s): D63.1 - Anemia in chronic kidney disease Status: Acute Assessment and Plan: * H/H better s/p transfusion * noted iron deficiency * follow trend of H/H (5) Hypoparathyroidism: Code(s): E20.9 - Hypoparathyroidism, unspecified Status: Acute Assessment and Plan: * on calcitriol and calcium supplements * follow trend of serum calcium (6) Hypertension: Code(s): I10 - Essential (primary) hypertension Status: Acute Assessment and Plan: * reasonable control * follow trend of hemodynamics Not much else to add -- will continue to follow from a distance. Subjective Date/time seen: 02/28/24 12:05 Interval history: Follow-up for acute kidney injury/acute renal failure on chronic kidney disease. Renal function/creatinine remains stable if not better than baseline; no apparent distress voiced at the time of my visit; no issues/events overnight or earlier this morning. Exam Narrative: General: WD/WN female in NAD Heart: normal S1 and S2; no rub Lungs: clear to auscultation Abdomen: soft, nontender, nondistended, positive bowel sounds Extremities: no cyanosis or clubbing; no edema Skin: warm and intact Objective Data Vital Signs Vital Signs: Vital Signs Temp Pulse Resp BP Pulse Ox O2 Del Method 02/28/24 06:00 97.8 F 93 18 144/56 H 100 02/27/24 22:00 98.3 F 81 18 128/70 98 02/27/24 20:00 Room Air 02/27/24 14:00 97.6 F 73 14 122/70 99 Intake/Output Intake/Output: Intake & Output 02/26/24 02/27/24 02/28/24 02/29/24 23:59 23:59 23:59 23:59 Intake Total 3775 910 1810 Output Total 1070 900 800 602 Balance 2705 10 1010 -602 Meds/Results Medications: Active Medications Generic Name Dose Route Start Last Admin Trade Name Freq PRN Reason Stop Dose Admin Acetaminophen 1,000 mg 02/24/24 01:19 02/28/24 23:40 Acetaminophen 500 Mg Tablet PO 1,000 mg Q6H PRN Administration Mild Pain (1-3) or Fever Al Hydrox/Mg Hydrox/Simethicone 30 ml 02/24/24 00:06 Mag Hydrox/Al Hydrox/Simeth 30 Ml Udc PO Q6H PRN Indigestion Atorvastatin Calcium 20 mg 02/24/24 21:00 02/28/24 20:22 Atorvastatin 20 Mg Tablet PO 20 mg HS LORNA Administration Bupropion HCl 150 mg 02/25/24 09:00 02/28/24 08:25 Bupropion Hcl Xl (24 Hr) 150 Mg Tabcr PO 150 mg QAM LORNA Administration Calcitriol 0.25 mcg 02/26/24 09:00 02/28/24 16:36 Calcitriol 0.25 Mcg Capsule PO 0.25 mcg BID LORNA Administration Calcium Carbonate 400 mg 02/26/24 13:00 02/28/24 16:36 Calcium Carbonate (Tums) 500 Mg (200 Mg Elemental) PO 400 mg TID LORNA Administration Cephalexin HCl 250 mg 02/28/24 09:00 02/28/24 20:22 Cephalexin 250 Mg Capsule PO 02/29/24 21:01 250 mg Q12HR LORNA Administration Loratadine 10 mg 02/24/24 13:06 Loratadine 10 Mg Tablet PO DAILY PRN Allergy Symptoms Melatonin 3 mg 02/28/24 22:56 Melatonin 3 Mg Tablet PO HS PRN Insomnia Ondansetron HCl 4 mg 02/24/24 00:06 Ondansetron Inj 4 Mg/2 Ml Vial IV PUSH Q6H PRN Nausea And Vomiting Pantoprazole Sodium 40 mg 02/26/24 09:00 02/28/24 20:22 Pantoprazole 40 Mg Tablet PO 40 mg Q12HR LORNA Administration Polyethylene Glycol 17 gm 02/25/24 09:45 02/28/24 08:23 Polyethylene Glycol 3350 17 Gm Powd.Pack PO 17 gm QAM LORNA Administration Senna/Docusate Sodium 1 tab 02/25/24 09:45 02/28/24 16:36 Senna/Docusate Sodium Tablet PO Not Given BID [facility] Radiology Results: ITS Impressions Head CT 02/23/24 15:26 IMPRESSION: No acute intracranial process. Chest X-Ray 02/23/24 15:38 IMPRESSION: No acute cardiopulmonary process. Hip/Pelvis X-Ray 02/23/24 15:42 IMPRESSION: Possible nondisplaced right obturator ring fracture. Cervical Spine CT 02/23/24 15:59 IMPRESSION: No acute fracture or traumatic malalignment in the cervical spine. Lumbar Spine CT 02/23/24 16:15 IMPRESSION: No acute fracture or traumatic malalignment in the lumbar spine. Indeterminate density left renal lesion versus lobulated renal contour. Recommend nonemergent but timely outpatient CT or MRI without and with contrast for further evaluation. Abdomen/Pelvis CT 02/23/24 18:46 IMPRESSION: No acute abdominopelvic process detected. No pelvic fracture identified, prior radiograph findings likely related to artifact Possible bilateral renal lesions, may represent hemorrhagic/proteinaceous cysts, other renal mass, or artifact. Given renal function, consider nonemergent but timely renal MRI without and with contrast. Suggestion of mild diffuse osseous sclerosis as can be seen with myelofibrosis, mastocytosis, leukemia, lymphoma, sickle cell anemia, metabolic processes such as renal osteodystrophy and others entities. Bone Scan Nuclear Medicine 02/25/24 14:34 IMPRESSION: 1. No specific evidence of malignancy. Labs Labs: Laboratory Results - last 24 hr 02/28/24 05:05 WBC 13.3 H Hgb 8.5 L Hct 26.7 L Plt Count 368 Sodium 136 L Potassium 3.9 Chloride 106 Carbon Dioxide 19 L Anion Gap 11 BUN 14 Creatinine 1.60 H Estim Creat Clear Calc 26 Estimated GFR 32 L Glucose 87 Calcium 7.2 L Phosphorus 4.2 Magnesium 1.4 L Total Bilirubin 0.7 AST 125 H ALT 101 H Alkaline Phosphatase 156 H Total Protein 6.0 L Albumin 2.8 L
[2024-02-28 14:00] VITALS: BP 122/70; PULSE 73; RESP 14; TEMP 36.4; O2SAT 99
[2024-02-28] MEDS: ATORVASTATIN 20 MG TABLET PO (20:22)
[2024-02-28 22:00] VITALS: BP 128/70; PULSE 81; RESP 18; TEMP 36.8; O2SAT 98
[2024-02-29 05:58] LABS: Alanine Aminotransferase 80 U/L (6-35); Albumin Level 2.9 g/dL (3.5-5.1); Alkaline Phosphatase 155 U/L (38-126); Anion Gap 9 mmol/L (4-12); Aspartate Amino Transferase 81 U/L (14-36); Bilirubin,Total 0.6 mg/dL (0.2-1.3); Blood Urea Nitrogen 13 mg/dL (7-17); Carbon Dioxide 21 mmol/L (22-30); Chloride 107 mmol/L (98-107); Estimated CRCL calculation 28 ml/min; Estimated Glomerular Filt Rate 35; Glucose 84 mg/dL (65-110); Magnesium 1.6 mg/dL (1.6-2.3); Phosphorus 4.9 mg/dL (2.5-4.5); Potassium 3.7 mmol/L (3.4-5.0); Sodium 137 mmol/L (137-145)
[2024-02-29 05:59] LABS: Basophils Percent Auto 0.3 % (0.2-1.2); Eosinophils Absolute Auto 0.1 K/mm3 (0-0.3); Eosinophils Percent Auto 1.2 % (0-4.4); Hematocrit 27.7 % (37.0-47.0); Hemoglobin 8.7 g/dL (12.0-15.0); Immature Granulocyte Absolute 0.22 K/mm3 (0.00-0.031); Immature Granulocyte Percent A 2.1 % (0-0.5); Lymphocytes Absolute Auto 1.46 K/mm3 (0.9-3.2); Lymphocytes Percent Auto 14.1 % (18.3-44.2); Mean Corpuscular HGB Conc 31.4 g/dl (32-36); Mean Corpuscular Hemoglobin 30.1 pg (26-34); Mean Corpuscular Volume 95.8 fl (80-100); Monocytes Absolute Auto 0.8 K/mm3 (0.1-0.6); Monocytes Percent Auto 7.2 % (2.6-8.5); Neutrophils Absolute Auto 7.8 K/mm3 (1.3-6.7); Neutrophils Percent Auto 75.1 % (45.5-73.1); Platelet Count Result 395 k/mm3 (150-375); Red Blood Count 2.89 M/mm3 (4.2-5.4); Red Cell Distribution Width 14.8 % (11.5-14.5); White Blood Count 10.4 K/mm3 (4.5-10.0)
[2024-02-29 06:00] VITALS: BP 144/56; PULSE 93; RESP 18; TEMP 36.6; O2SAT 100
--- NOTE | 2024-02-29 08:04 | P.PNIM_ITS ---
Progress Note: A&P Assessment and Plan (1) Acute UTI: Code(s): N39.0 - Urinary tract infection, site not specified Status: Acute Assessment and Plan: - UA consistent with UTI. - Blood culture no growth to date - Urine culture grew E. Coli. - Switched to Cephalexin 250 mg PO q 12. - Follow cultures. (2) Chronic kidney disease (CKD): Qualifiers: Chronic kidney disease stage: stage 4 (severe) Qualified Code(s): N18.4 - Chronic kidney disease, stage 4 (severe) Code(s): N18.9 - Chronic kidney disease, unspecified Status: Acute Assessment and Plan: stable - Possibly JT on CKD. - Renal function improving with IVF hydration 2.8>>2.4>>2.00>>1.60. - No prior or labs for baseline comparison - Avoid nephrotoxic agents. - Given 1 L of NS in emergency room - continue to monitor renal function closely. - Nephrology consult - urine electrolytes, CPK, (3) Hypoparathyroidism: Code(s): E20.9 - Hypoparathyroidism, unspecified Status: Acute Assessment and Plan: * Patient reports being diagnosed in 1978 but has not seen Head Nurse in years. * Calcium 7.0 last. * Calcium Gluconate 1,000 mg IVPB given. * Receiving Calcitrol and oral calcium. * Monitor labs. * Nephrology following. 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 * Transfused 1 unit of PRBC's on 02/26/24. Last blood count 8.4/26.0. * Guaiac stool pending * Iron <10, TIBC 173, % saturation <6. Patient will need iron infusions once she has completed antibiotics. * Monitor labs. (5) Acute kidney injury: Code(s): N17.9 - Acute kidney failure, unspecified Status: Acute Assessment and Plan: * Renal function improving with IVF hydration 2.8>>2.4>>2.00>>1.60. * Monitor labs * Encourage hydration. (6) Hypocalcemia due to chronic kidney disease: Code(s): E83.51 - Hypocalcemia; N18.9 - Chronic kidney disease, unspecified Status: Acute Assessment and Plan: * Calcium 7.0 in afternoon * Gave Calcium Gluconate 1,000 mg IVPB given. * Ionized calcium 3.8. * CT abdomen showed mild diffuse osseous sclerosis. * Bone scan: FINDINGS: There is disc-centered increased activity in lumbar spine correlating with severe degenerative disc disease by CT. There is joint-centered increased activity in the wrists and left hand without radiographic comparison, likely osteoarthritis. IMPRESSION: 1. No specific evidence of malignancy. (7) Hypomagnesemia: Code(s): E83.42 - Hypomagnesemia Status: Acute Assessment and Plan: * Magnesium 1.9, improved. * Monitor level. * replete as needed (8) Kidney lesion, [place], bilateral: Code(s): N28.9 - Disorder of kidney and ureter, unspecified Status: Acute Assessment and Plan: - CT abd/pelvis showing possible dalila renal lesions. - Advised to follow-up outpatient MRI w/wo contrast after discharge. (9) Hypertension: Code(s): I10 - Essential (primary) hypertension Status: Acute Assessment and Plan: - BP 120/59. - Home meds on hold. - Echo showed: Summary 1. Complete two-dimensional, color flow and Doppler transthoracic echocardiogram is performed. 2. Left ventricular systolic function is normal, estimated at 60-65%. 3. There is mild mitral valve regurgitation. 4. There is mild tricuspid valve regurgitation. 5. No pulmonary hypertension, estimated pulmonary arterial systolic pressure is 36 mmHg. 6. There is mild pulmonic regurgitation. (10) Hypokalemia: Code(s): E87.6 - Hypokalemia Status: Acute Assessment and Plan: improving * Potassium 3.3. * Potassium 40 meq PO x1. * Monitor labs. (11) Depression: Code(s): F32.A - Depression, unspecified Status: Acute Assessment and Plan: - Resume bupropion. Time Spent With Patient Time with patient: Greater than 35 minutes Subjective Date/time seen: 02/29/24 08:04 Interval history: leukocytosis improving labs, JT improving, AST ALT and alkaline phos improving P.o. antibiotics will be completed today, patient will need to stay till tomorrow for a iron infusion and then she may discharge home. Review of Systems Review of Systems: Recurrent falls, generalized weakness, diarrhea All systems reviewed & are unremarkable except as noted in HPI and below Constitutional: Constitutional: Denies chills, Denies fever(s), Reports frequent falls, Reports malaise, Denies night sweats and Reports weakness Neurologic: Reports frequent falls and Reports weakness Exam Narrative: HEENT: Atraumatic, PERRL, EOM, moist mucus membrans. NECK: Supple. Lungs: Clear bilaterally. Heart: RRR, no murmurs. Abdomen: Soft, non-tender, non-distended, +ve bowel sounds X4 quadrants. Extremities: Multiple bruises to dalila arms with some skin tears. Bruising to dalila. LE, 2+ pedal pulses. Skin: Warm and dry. Bruising and skin tears to dalila. UE and bruising to dalila. LE. Neuro: Appears slightly confused, only oriented to self and location. No focal neuro deficits noted. Psych: Pleasant and co-operative. Const: General: comfortable, no acute distress, well developed, alert, awake, uncomfortable and average body habitus Nutritional Appearance: average body habitus Orientation/consciousness: patient oriented x3 Other: bruises distributed on limbs lower lip laceration HENMT: Head: normal to inspection, normocephalic and atraumatic Ears: hearing grossly normal bilaterally Face/Nose/Sinus: normal facial exam Face and sinus: normal facial exam Eyes: General: appearance normal, both eyes and all related structures Pupils: Equal, round and reactive pupils present EOM: EOMs intact bilaterally Neck: Neck: full ROM, no lymphadenopathy and no JVD Thyroid: thyroid normal Lymphatic: no lymphadenopathy noted Resp: Effort & Inspection: normal respiratory effort and able to speak in complete sentences Auscultation: clear to auscultation bilaterally Cardio: Jugular venous distension: no JVD Rate: regular rate Rhythm: regular rhythm Heart sounds: S1 normal heart sound present and S2 normal heart sound present GI: Auscultation: normal bowel sounds Other: Last BM 02/27/24. : General: Yes deferred Skin: Rashes: no rashes Wounds: no wounds Other: Warm and dry. Bruising and skin tears to dalila. UE and bruising to dalila. LE. Neuro: General: patient oriented x3 and CN's II-XI intact bilaterally Cranial nerves: Yes CN's II-XII intact bilaterally and Yes Equal, round and reactive pupils present Cognition (Neuro): normal cognition Speech: normal speech Gait exam (Neuro): Normal gait present Motor exam (neuro): 5/5 motor strength present throughout Extrem: General: normal to inspection, full ROM, no joint enlargement and no pedal edema Psych: Mental Status: mental status grossly normal Affect: normal affect Objective Data Vital Signs Vital Signs: Vital Signs - 24 hr 02/28/24 14:00 02/28/24 20:00 02/28/24 22:00 Temperature 97.6 F 98.3 F Pulse Rate 73 81 Respiratory Rate 14 18 Blood Pressure 122/70 128/70 Pulse Oximetry 99 98 Oxygen Delivery Room Air 02/29/24 06:00 Temperature 97.8 F Pulse Rate 93 Respiratory Rate 18 Blood Pressure 144/56 H Pulse Oximetry 100 Oxygen Delivery Intake/Output Intake/Output: Intake & Output 02/26/24 02/27/24 02/28/24 02/29/24 23:59 23:59 23:59 23:59 Intake Total 3775 910 1810 Output Total 1070 900 800 602 Balance 2705 10 1010 -602 Meds/Results Medications: Active Medications Generic Name Dose Route Start Last Admin Trade Name Freq PRN Reason Stop Dose Admin Acetaminophen 1,000 mg 02/24/24 01:19 02/28/24 23:40 Acetaminophen 500 Mg Tablet PO 1,000 mg Q6H PRN Administration Mild Pain (1-3) or Fever Al Hydrox/Mg Hydrox/Simethicone 30 ml 02/24/24 00:06 Mag Hydrox/Al Hydrox/Simeth 30 Ml Udc PO Q6H PRN Indigestion Atorvastatin Calcium 20 mg 02/24/24 21:00 02/28/24 20:22 Atorvastatin 20 Mg Tablet PO 20 mg HS LORNA Administration Bupropion HCl 150 mg 02/25/24 09:00 02/28/24 08:25 Bupropion Hcl Xl (24 Hr) 150 Mg Tabcr PO 150 mg QAM LORNA Administration Calcitriol 0.25 mcg 02/26/24 09:00 02/28/24 16:36 Calcitriol 0.25 Mcg Capsule PO 0.25 mcg BID LORNA Administration Calcium Carbonate 400 mg 02/26/24 13:00 02/28/24 16:36 Calcium Carbonate (Tums) 500 Mg (200 Mg Elemental) PO 400 mg TID LORNA Administration Cephalexin HCl 250 mg 02/28/24 09:00 02/28/24 20:22 Cephalexin 250 Mg Capsule PO 02/29/24 21:01 250 mg Q12HR LORNA Administration Loratadine 10 mg 02/24/24 13:06 Loratadine 10 Mg Tablet PO DAILY PRN Allergy Symptoms Melatonin 3 mg 02/28/24 22:56 Melatonin 3 Mg Tablet PO HS PRN Insomnia Ondansetron HCl 4 mg 02/24/24 00:06 Ondansetron Inj 4 Mg/2 Ml Vial IV PUSH Q6H PRN Nausea And Vomiting Pantoprazole Sodium 40 mg 02/26/24 09:00 02/28/24 20:22 Pantoprazole 40 Mg Tablet PO 40 mg Q12HR LORNA Administration Polyethylene Glycol 17 gm 02/25/24 09:45 02/28/24 08:23 Polyethylene Glycol 3350 17 Gm Powd.Pack PO 17 gm QAM LORNA Administration Senna/Docusate Sodium 1 tab 02/25/24 09:45 02/28/24 16:36 Senna/Docusate Sodium Tablet PO Not Given BID LORNA Radiology Results: ITS Impressions Head CT 02/23/24 15:26 IMPRESSION: No acute intracranial process. Chest X-Ray 02/23/24 15:38 IMPRESSION: No acute cardiopulmonary process. Hip/Pelvis X-Ray 02/23/24 15:42 IMPRESSION: Possible nondisplaced right obturator ring fracture. Cervical Spine CT 02/23/24 15:59 IMPRESSION: No acute fracture or traumatic malalignment in the cervical spine. Lumbar Spine CT 02/23/24 16:15 IMPRESSION: No acute fracture or traumatic malalignment in the lumbar spine. Indeterminate density left renal lesion versus lobulated renal contour. Recommend nonemergent but timely outpatient CT or MRI without and with contrast for further evaluation. Abdomen/Pelvis CT 02/23/24 18:46 IMPRESSION: No acute abdominopelvic process detected. No pelvic fracture identified, prior radiograph findings likely related to artifact Possible bilateral renal lesions, may represent hemorrhagic/proteinaceous cysts, other renal mass, or artifact. Given renal function, consider nonemergent but timely renal MRI without and with contrast. Suggestion of mild diffuse osseous sclerosis as can be seen with myelofibrosis, mastocytosis, leukemia, lymphoma, sickle cell anemia, metabolic processes such as renal osteodystrophy and others entities. Bone Scan Nuclear Medicine 02/25/24 14:34 IMPRESSION: 1. No specific evidence of malignancy. Labs Labs: Laboratory Results - last 24 hr 02/25/24 02/26/24 02/26/24 05:15 07:57 08:55 WBC RBC Hgb Hct MCV MCH MCHC RDW Plt Count MPV Immature Gran % (Auto) Neut % (Auto) Lymph % (Auto) Webb % (Auto) Eos % (Auto) Baso % (Auto) Lymph # (Auto) Webb # (Auto) Eos # (Auto) Baso # (Auto) Abs Immat Gran (auto) Absolute Neuts (auto) Absolute Nucleated RBC Nucleated RBC % Sodium Potassium Chloride Carbon Dioxide Anion Gap BUN Creatinine Estim Creat Clear Calc Estimated GFR Glucose Calcium Phosphorus Magnesium Copper 116 Total Bilirubin AST ALT Alkaline Phosphatase Total Protein Albumin Vit D 1,25-Dihyd Total 22 1,25 Dihydroxy Vit D2 <8 1,25 Dihydroxy Vit D3 22 Ur Calcium 24 Hr 88 02/29/24 05:20 WBC 10.4 H RBC 2.89 L Hgb 8.7 L Hct 27.7 L MCV 95.8 MCH 30.1 MCHC 31.4 L RDW 14.8 H Plt Count 395 H MPV 11.0 H Immature Gran % (Auto) 2.1 H Neut % (Auto) 75.1 H Lymph % (Auto) 14.1 L Webb % (Auto) 7.2 Eos % (Auto) 1.2 Baso % (Auto) 0.3 Lymph # (Auto) 1.46 Webb # (Auto) 0.8 H Eos # (Auto) 0.1 Baso # (Auto) 0.0 Abs Immat Gran (auto) 0.22 H Absolute Neuts (auto) 7.8 H Absolute Nucleated RBC 0.000 Nucleated RBC % 0.0 Sodium 137 Potassium 3.7 Chloride 107 Carbon Dioxide 21 L Anion Gap 9 BUN 13 Creatinine 1.50 H Estim Creat Clear Calc 28 Estimated GFR 35 L Glucose 84 Calcium 7.0 L Phosphorus 4.9 H Magnesium 1.6 Copper Total Bilirubin 0.6 AST 81 H ALT 80 H Alkaline Phosphatase 155 H Total Protein 6.0 L Albumin 2.9 L Vit D 1,25-Dihyd Total 1,25 Dihydroxy Vit D2 1,25 Dihydroxy Vit D3 Ur Calcium 24 Hr Quality VTE Prophylaxis VTE prophylaxis: mechanical ordered
[2024-02-29] MEDS: CEPHALEXIN 250 MG CAPSULE PO ×2 (08:52→20:38)
[2024-02-29] MEDS: PANTOPRAZOLE 40 MG TABLET PO ×2 (08:52→20:38)
[2024-02-29] MEDS: buPROPion HCL XL (24 HR) 150 MG TABCR PO (08:52)
[2024-02-29] MEDS: calcitrioL 0.25 MCG CAPSULE PO ×2 (08:52→17:11)
[2024-02-29] MEDS: CALCIUM CARBONATE (TUMS) 500 MG (200 MG ELEMENTAL) 400 MG PO ×3 (08:52→17:11)
[2024-02-29 10:40] LABS: IFOB Positive Control Positive; Immunochemical Fecal Occult Bl Negative (N)
[2024-02-29 14:00] VITALS: BP 133/76; PULSE 92; RESP 14; TEMP 36.8; O2SAT 100
[2024-02-29 20:13] VITALS: BP 104/68; PULSE 94; RESP 12; TEMP 36.7; O2SAT 98
[2024-02-29] MEDS: ATORVASTATIN 20 MG TABLET PO (20:38)
[2024-03-01 05:09] VITALS: BP 104/66; PULSE 89; RESP 12; TEMP 36.8; O2SAT 95
[2024-03-01 05:55] LABS: Basophils Percent Auto 0.3 % (0.2-1.2); Eosinophils Absolute Auto 0.1 K/mm3 (0-0.3); Eosinophils Percent Auto 0.8 % (0-4.4); Hematocrit 25.2 % (37.0-47.0); Hemoglobin 7.8 g/dL (12.0-15.0); Immature Granulocyte Absolute 0.15 K/mm3 (0.00-0.031); Immature Granulocyte Percent A 1.6 % (0-0.5); Lymphocytes Absolute Auto 1.84 K/mm3 (0.9-3.2); Lymphocytes Percent Auto 19.5 % (18.3-44.2); Mean Corpuscular Hemoglobin 30.2 pg (26-34); Mean Corpuscular Volume 97.7 fl (80-100); Monocytes Absolute Auto 0.8 K/mm3 (0.1-0.6); Monocytes Percent Auto 8.6 % (2.6-8.5); Neutrophils Absolute Auto 6.5 K/mm3 (1.3-6.7); Neutrophils Percent Auto 69.2 % (45.5-73.1); Platelet Count Result 389 k/mm3 (150-375); Red Blood Count 2.58 M/mm3 (4.2-5.4); Red Cell Distribution Width 14.6 % (11.5-14.5); White Blood Count 9.4 K/mm3 (4.5-10.0)
[2024-03-01 06:18] LABS: Alanine Aminotransferase 56 U/L (6-35); Albumin Level 2.8 g/dL (3.5-5.1); Alkaline Phosphatase 121 U/L (38-126); Anion Gap 9 mmol/L (4-12); Aspartate Amino Transferase 53 U/L (14-36); Bilirubin,Total 0.5 mg/dL (0.2-1.3); Blood Urea Nitrogen 15 mg/dL (7-17); Calcium 6.6 mg/dL (8.4-10.2); Carbon Dioxide 21 mmol/L (22-30); Chloride 105 mmol/L (98-107); Estimated CRCL calculation 30 ml/min; Estimated Glomerular Filt Rate 37; Glucose 89 mg/dL (65-110); Magnesium 1.3 mg/dL (1.6-2.3); Phosphorus 5.1 mg/dL (2.5-4.5); Potassium 3.7 mmol/L (3.4-5.0); Sodium 135 mmol/L (137-145)
[2024-03-01] MEDS: buPROPion HCL XL (24 HR) 150 MG TABCR PO (08:55)
[2024-03-01] MEDS: calcitrioL 0.25 MCG CAPSULE PO ×2 (08:55→16:04)
[2024-03-01] MEDS: CALCIUM CARBONATE (TUMS) 500 MG (200 MG ELEMENTAL) 400 MG PO ×3 (08:56→16:04)
[2024-03-01] MEDS: IRON SUCROSE COMPLEX 200 MG, IRON SUCROSE COMPLEX 100 MG in SODIUM CHLORIDE 0.9% IV 250 ML 175 MG IVPB (08:56)
[2024-03-01] MEDS: PANTOPRAZOLE 40 MG TABLET PO (08:56)
[2024-03-01 14:00] VITALS: BP 125/66; PULSE 99; RESP 18; TEMP 36.4; O2SAT 100
--- NOTE | 2024-03-01 16:21 | PM.DS ---
DS: Admitting Diagnosis Discharge Date 03/01/2024 Admitting Diagnosis Acute UTI DS: Discharge Diagnosis Discharge Diagnosis (1) Acute UTI: Code(s): N39.0 - Urinary tract infection, site not specified Status: Acute Assessment and Plan: - UA on admission consistent with UTI. - Blood cultures negative. - Urine culture grew E. Coli. - Patient completed antibiotics therapy inpatient with IV Ceftriaxone and PO Cephalexin. (2) Chronic kidney disease (CKD): Qualifiers: Chronic kidney disease stage: stage 4 (severe) Qualified Code(s): N18.4 - Chronic kidney disease, stage 4 (severe) Code(s): N18.9 - Chronic kidney disease, unspecified Status: Acute Assessment and Plan: - Possibly JT on CKD. - Renal function improved with IVF hydration 2.8>>2.4>>2.00>>1.60>>1.5>>1.4 - No prior or labs for baseline comparison. - Possibly hypertensive nephropathy per barge hand. - Continue to avoid nephrotoxic agents. - Followed by Nephrology inpatient and renal function improved and baseline prior to discharge. (3) Hypoparathyroidism: Code(s): E20.9 - Hypoparathyroidism, unspecified Status: Acute Assessment and Plan: Treated with Calcium Gluconate 1,000 mg IVPB, oral Calcitrol and oral calcium supplements. Seen by Commercial Development Manager inpatient. (4) Erythropoietin deficiency anemia: Code(s): D63.1 - Anemia in chronic kidney disease Status: Acute Assessment and Plan: Inpatient episode of H&H 6.9/20.8. Transfused with 1 unit PRBC's and levels improved to 8.4/26.0. - Hgb prior to discharge 7.8 FOB negative. Iron <10, TIBC 173, % saturation <6. Received IV iron for low iron sats and started on PO iron supplements. (5) Acute kidney injury: Code(s): N17.9 - Acute kidney failure, unspecified Status: Acute Assessment and Plan: Likely secondary to UTI infection, dehydration and anemia. Resolving and Hgb 1.4 prior to discharge. Commercial Development Manager assisted in stabilizing patient. (6) Hypocalcemia due to chronic kidney disease: Code(s): E83.51 - Hypocalcemia; N18.9 - Chronic kidney disease, unspecified Status: Acute Assessment and Plan: Likely secondary to hypoparathyroidism. CT abdomen showed mild diffuse osseous sclerosis. Bone scan: FINDINGS: There is disc-centered increased activity in lumbar spine correlating with severe degenerative disc disease by CT. There is joint-centered increased activity in the wrists and left hand without radiographic comparison, likely osteoarthritis. IMPRESSION: 1. No specific evidence of malignancy. - Treated with calcium supplements IV and PO. (7) Hypomagnesemia: Code(s): E83.42 - Hypomagnesemia Status: Acute Assessment and Plan: Corrected prior to discharge. (8) Kidney lesion, tulalip, bilateral: Code(s): N28.9 - Disorder of kidney and ureter, unspecified Status: Acute Assessment and Plan: - CT abd/pelvis showing possible dalila renal lesions. - Advised to follow-up outpatient MRI w/wo contrast after discharge. (9) Hypertension: Code(s): I10 - Essential (primary) hypertension Status: Acute Assessment and Plan: - BP remained stable off BP medications. - Home meds held during inpatient stay. - Echo showed: Summary 1. Complete two-dimensional, color flow and Doppler transthoracic echocardiogram is performed. 2. Left ventricular systolic function is normal, estimated at 60-65%. 3. There is mild mitral valve regurgitation. 4. There is mild tricuspid valve regurgitation. 5. No pulmonary hypertension, estimated pulmonary arterial systolic pressure is 36 mmHg. 6. There is mild pulmonic regurgitation. (10) Hypokalemia: Code(s): E87.6 - Hypokalemia Status: Acute Assessment and Plan: Corrected prior to discharge. (11) Depression: Code(s): F32.A - Depression, unspecified Status: Acute Assessment and Plan: - Bupropion continued inpatient. Plan Discharge home on self-care. DS: Summary Hospital Course Reason for hospitalization: Recurrent Falls. Hospital Course: Patient was brought in to the ER with reports of recurrent falls from the assisted living facility that she resides. She was evaluated in the ER and initial work-up were concerning for UTI and JT on possibly CKD. Patient was admitted for stabilization of her symptoms and was started on IV abx after blood and urine cultures were collected. Blood cultures were negative, with her urine cultures growing pansensitive E.Coli. She has been treated with IV abx for her UTI and treatment completed prior to discharge. Patient was also noted with JT on her CKD, possibly due to infection, volume depletion and possibly anemia. Her kidney function has significantly improved with her JT resolved or possibly progressing towards resolution with UTI treatment, IVF infusion and blood transfusion. She had an episode of Hgb 6.9 and was transfused with 1 unit PRBC's, with her Hgb maintaining > 7 thereafter. She worked with PT/OT and has been cleared for discharge back to her assisted living facility. Patient's recurrent falls were possibly related to deconditioning, UTI and possibly dehydration, and her strength has significantly improved prior to discharge. Pt is able to ambulate to bathroom and in room independently with a walker. Pt denies any acute distress and states she's ready to go home and will follow-up with her PCP and barge hand outpatient. No acute distress noted or reported prior to discharge and patient is medically stable for discharge. Status at Discharge Functional status at discharge: uses cane/walker Overall status at discharge: patient is progressing back to baseline Time Spent with Patient Time attestation: Total time spent providing and/or coordinating discharge services: Time spent: Greater than 30 minutes Exam Narrative: HEENT: Atraumatic, PERRL, EOM, moist mucus membrans. NECK: Supple. Lungs: Clear bilaterally. Heart: RRR, no murmurs. Abdomen: Soft, non-tender, non-distended, +ve bowel sounds X4 quadrants. Extremities: Multiple bruises to dalila arms with some skin tears. Bruising to dalila. LE, 2+ pedal pulses. Skin: Warm and dry. Bruises to dalila. UE and LE. Neuro: Well oriented. No focal neuro deficits noted. Psych: Pleasant and co-operative. DS: Data Data Completed and Pending Labs on day of discharge: Labs from last 24 hours 03/01/24 05:13 WBC 9.4 RBC 2.58 L Hgb 7.8 L Hct 25.2 L MCV 97.7 MCH 30.2 MCHC 31.0 L RDW 14.6 H Plt Count 389 H MPV 11.0 H Immature Gran % (Auto) 1.6 H Neut % (Auto) 69.2 Lymph % (Auto) 19.5 R[place] % (Auto) 8.6 H Eos % (Auto) 0.8 Baso % (Auto) 0.3 Lymph # (Auto) 1.84 [place] # (Auto) 0.8 H Eos # (Auto) 0.1 Baso # (Auto) 0.0 Abs Immat Gran (auto) 0.15 H Absolute Neuts (auto) 6.5 Absolute Nucleated RBC 0.000 Nucleated RBC % 0.0 Sodium 135 L Potassium 3.7 Chloride 105 Carbon Dioxide 21 L Anion Gap 9 BUN 15 Creatinine 1.40 H Estim Creat Clear Calc 30 Estimated GFR 37 L Glucose 89 Calcium 6.6 L Phosphorus 5.1 H Magnesium 1.3 L Total Bilirubin 0.5 AST 53 H ALT 56 H Alkaline Phosphatase 121 Total Protein 6.0 L Albumin 2.8 L Discharge Plan Discharge Attending physician on discharge: John Masters Consulting providers: Alvarado Lemons Discharging Clinician: Kvng Smith Anticipated Discharge Date/Time: 03/01/24 16:59 Patient Disposition: Home, Self-Care Activity: as tolerated Diet: heart healthy Patient Instructions: Antibiotic Form Stand Alone Forms: General Discharge Information Follow-up/Referrals: [facility] [Other] - 1 Week Alvarado Lemons MD [Physician] - 3 Weeks Discharge Medications: New sennosides-docusate sodium [Senokot-S] 8.6-50 mg Tablet 1 tab PO BID Qty: 30 0RF polyethylene glycol 3350 [Miralax] 17 gram Powder In Packet 17 g PO QAM Qty: 14 0RF calcitriol [Rocaltrol] 0.25 mcg Capsule 0.25 mcg PO BID Qty: 30 0RF pantoprazole 40 mg Tablet,Delayed Release (Dr/Ec) 40 mg PO Q12HR Qty: 30 0RF calcium carbonate 500 mg calcium (1,250 mg) Tablet,Chewable 400 mg PO TID Qty: 30 0RF Continued atorvastatin 20 mg Tablet 20 mg PO HS bupropion HCl [Wellbutrin XL] 150 mg Tablet Extended Release 24 Hr 150 mg PO DAILY Patient Comments: Patient unsure of dosing. Awaiting medical records. loratadine [Claritin] 10 mg Tablet 10 mg PO DAILY PRN (Reason: Allergy Symptoms) Held atenolol 25 mg Tablet 25 mg PO DAILY Hold Instructions: Resume on 03/10/24. Date of admission: 02/25/24 10:42 Primary Care Provider: [facility] Admitting Provider: Sunitha Cortez V. Attending physician on admission: Sunitha Cortez V. Condition: Stable Quality VTE Prophylaxis VTE prophylaxis: mechanical ordered If No VTE Prophylaxis Answer both mechanical and pharmacologic: Reason no mechanical VTE proph: low risk/not indicated Reason no pharmacologic proph: low risk/not indicated Hospitalist MIPS Heart Failure (Exclusion) Patient has history of Heart Transplant or Left Ventricular Assistive Device?: No IF YES, STOP HERE Heart Failure (Qualifier) Patient has current or prior documentation of LVEF less than or equal to 40%, or mod/servere depressed LVSF?: No IF NO, STOP HERE
== END 2024-03-01 18:20 | disposition home or self-care (01) | DRG 690 ==
LOC: ANHED 20:34 → ANH2MED 20:47
PROVIDERS: Internal Medicine; Internal Medicine Nephrology; Nurse Practitioner Family; Admitting Provider Internal Medicine; Emergency Provider Physician Assistant; Visit Provider Nurse Practitioner Adult Health
DX: N39.0 Urinary tract infection, site not specified (principal); N17.9 Acute kidney failure, unspecified; N18.4 Chronic kidney disease, stage 4 (severe); I12.9 Hypertensive chronic kidney disease with stage 1 through stage 4 chronic kidney disease, or unspecified chronic kidney disease; D63.1 Anemia in chronic kidney disease; E83.51 Hypocalcemia; E87.6 Hypokalemia; E83.42 Hypomagnesemia; E20.9 Hypoparathyroidism, unspecified; E78.00 Pure hypercholesterolemia, unspecified; B96.20 Unspecified Escherichia coli [E. coli] as the cause of diseases classified elsewhere; N28.9 Disorder of kidney and ureter, unspecified; M19.90 Unspecified osteoarthritis, unspecified site; R29.6 Repeated falls; F32.A Depression, unspecified; Z96.612 Presence of left artificial shoulder joint
CPT/HCPCS: 36415; 36430; 70450; 71046; 72125; 72131; 73502; 74176; 78306; 80048; 80053; 80069; 80074; 81001; 81050; 82274; 82306; 82310; 82330; 82340; 82525; 82533; 82570; 82607; 82652; 82728; 82746; 83540; 83550; 83735; 83970; 84100; 84156; 84300; 84443; 85014; 85018; 85025; 85027; 85610; 85730; 86850; 86900; 86901; 86923; 87040; 87086; 87186; 93005; 93306; 96365; 96366; 96367; 97110; 97161; 97165; 97530; 97535; 99285; A9270; A9503; G0378; J0612; J0613; J0696; J1756; J3475; J7030; J7050; P9016; Q9957

== ENCOUNTER 2024-03-22 11:54 | Observation (INO) | payer MEDICARE, OTHER, SELFPAY ==
--- NOTE | ~2024-03-22 | XR_ITS ---
EXAMINATION: XR chest 1V portable DATE: 03/22/2024 18:03 INDICATION: Generalized weakness. TECHNIQUE: A single frontal view of the chest was obtained. COMPARISON: Chest 2 views 02/23/2024, CT abdomen and pelvis 02/23/2024 FINDINGS: A calcified left lung nodule is consistent with old granulomatous disease. No pleural effus ion or pneumothorax. The heart size is normal. Surgical clips overlie the left chest. There is a tota l left shoulder arthroplasty. IMPRESSION: 1. No acute cardiopulmonary disease. Reviewed, dictated and finalized at location A. PRESIDENT RESEARCH
[2024-03-22 12:01] VITALS: BP 119/72; PULSE 66; RESP 16; TEMP 36.6; O2SAT 100
[2024-03-22 15:15] LABS: Basophils Percent Auto 0.3 % (0.2-1.2); Eosinophils Absolute Auto 0.1 K/mm3 (0-0.3); Eosinophils Percent Auto 1.1 % (0-4.4); Hematocrit 35.3 % (37.0-47.0); Hemoglobin 10.7 g/dL (12.0-15.0); Immature Granulocyte Absolute 0.05 K/mm3 (0.00-0.031); Immature Granulocyte Percent A 0.5 % (0-0.5); Lymphocytes Absolute Auto 2.03 K/mm3 (0.9-3.2); Lymphocytes Percent Auto 19.4 % (18.3-44.2); Mean Corpuscular HGB Conc 30.3 g/dl (32-36); Mean Corpuscular Hemoglobin 30.3 pg (26-34); Mean Platelet Volume 11.4 fl (7.4-10.4); Monocytes Absolute Auto 0.8 K/mm3 (0.1-0.6); Neutrophils Absolute Auto 7.4 K/mm3 (1.3-6.7); Neutrophils Percent Auto 70.7 % (45.5-73.1); Platelet Count Result 290 k/mm3 (150-375); Red Blood Count 3.53 M/mm3 (4.2-5.4); Red Cell Distribution Width 14.6 % (11.5-14.5); White Blood Count 10.5 K/mm3 (4.5-10.0)
[2024-03-22 15:29] LABS: Alanine Aminotransferase 11 U/L (6-35); Albumin Level 4.4 g/dL (3.5-5.1); Alkaline Phosphatase 73 U/L (38-126); Anion Gap 9 mmol/L (4-12); Aspartate Amino Transferase 20 U/L (14-36); Bilirubin,Total 0.6 mg/dL (0.2-1.3); Blood Urea Nitrogen 50 mg/dL (7-17); Calcium 10.6 mg/dL (8.4-10.2); Carbon Dioxide 28 mmol/L (22-30); Chloride 101 mmol/L (98-107); Estimated Glomerular Filt Rate 13; Glucose 98 mg/dL (65-110); Potassium 4.6 mmol/L (3.4-5.0); Sodium 138 mmol/L (137-145)
[2024-03-22 15:31] LABS: Add Urine Microscopic? YES; Appearance Urine Cloudy (Clear); Bacteria Urine Rare /hpf; Bilirubin Urine Negative (Negative); Blood Urine Negative (Negative); Color Urine Yellow (Yellow); Glucose Urine UA Negative (Negative); Ketones Urine Negative (Negative); Leukocyte Esterase Ur 2+ LEU/UL (Negative); Need Manual Microscopic Reviewed; Nitrate Urine Negative (Negative); Non Pathogenic Casts 0-2; Protein Urine Trace mg/dL (Negative); RBC Urine 0-2 /hpf (0-2); Specific Grav Ur 1.013 (1.001-1.035); Squamous Epithelial Cell Urine None Seen /hpf (Few); Urobilinogen Urine 0.2 mg/dL (<2.0); WBC Urine 51-100 /hpf (0-3); pH Urine 7.5 (5.0-9.0)
[2024-03-22 17:08] VITALS: BP 154/87; PULSE 62; RESP 18; O2SAT 100
--- NOTE | 2024-03-22 17:20 | WPDEDEXPGENP ---
HPI - General Ped General Chief complaint: Urogenital-Female Stated complaint: c/o weakness Time Seen by Provider: 03/22/24 17:06 Source: patient and family (Cousins) Mode of arrival: ambulatory History of Present Illness HPI narrative: Patient presents with complaint of generalized weakness. She denies any unilateral symptoms. She also states she has been more confused and her cousin's concur with this. The symptoms have been occurring over the past 3 days. She states because of the weakness she has been unsteady on her feet needs to hold onto the healy. She denies any falls and denies it being any dizziness or lightheadedness. She denies any fevers, chills, cough, chest pain, abdominal pain, or bowel movements. She has had to miss a walker lately that she is more steady on her feet as she lives by herself. Cousin states when she talked to her on the phone this morning she still noted lethargic. They were concerned she might have urinary tract infection. She has a history of urinary tract infections including a recent admission for this. Patient was previously she had a urinary tract infection she would have hematuria and or bleeding when she wiped however this has not happened yet. Patient has also been short of breath. Patient notes that when she was bathing she nearly fell because of how weak she was and she likely grabbed onto the tub radial and was able to steady herself. Denies any lower extremity edema. Related Data Home Medications Medication Instructions Recorded Confirmed atenolol 25 mg tablet 25 mg PO DAILY 04/18/22 03/22/24 atorvastatin 20 mg tablet 20 mg PO HS 04/18/22 03/22/24 bupropion HCl 150 mg 24 hr tablet, 150 mg PO BID 04/18/22 03/22/24 extended release (Wellbutrin XL) allopurinol 100 mg tablet 100 mg PO DAILY 03/22/24 03/22/24 calcium carbonate 500 mg PO DAILY 03/22/24 03/22/24 ferrous sulfate 325 mg (65 mg 325 mg PO DAILY 03/22/24 03/22/24 iron) tablet magnesium 250 mg tablet 250 mg PO BID 03/22/24 03/22/24 omega 3-dha 120 mg-epa 180 mg-fish 2 cap PO BID 03/22/24 03/22/24 oil 600 mg capsule ([place]-3) tramadol 50 mg tablet 50 mg PO Q6H PRN Pain 03/22/24 03/22/24 Allergies Allergy/AdvReac Type Severity Reaction Status Date / Time No Known Allergies Allergy Verified 02/23/24 14:24 [facility] Past Medical History Medical History Chronic renal disease, stage IV Colitis History of UTI Hypercholesteremia Hypertension Osteoarthritis Surgical History Surgical History H/O: hysterectomy History of left shoulder replacement History of orthopedic surgery bilateral wrist Social History Social History Smoking status: Former smoker Alcohol intake: current Drinks per week: 1 Substance use: never Substance use type: does not use Do You Feel Safe in your Home?: Yes Lack of Transportation: No Lack of Food: Never True Current Housing: I Have Housing Concerned About Future Housing: No Difficulty Paying Gas/Electric Bills: No Difficulty Paying for Meds: No Currently Unemployed: No Education: High School Diploma/GED Difficulty w/ Childcare or Family Care: No Living arrangements: alone Spiritual care concerns: No Pediatric Exam Narrative: Physical exam: GENERAL: Well-appearing, well-nourished, and in no acute distress. HEAD: Normocephalic, atraumatic. EYES: Non injected, non icteric ENT: Nares clear, no rhinorrhea or epistaxis. Tacky mucous membranes. NECK: Supple. CHEST: Speaking in full sentences. No respiratory distress. Lungs clear to auscultation bilaterally. No wheezes or crackles. HEART: Regular rate and rhythm. . ABDOMEN: Soft, nondistended. Nontender to palpation without rigidity or guarding. Not peritoneal. EXTREMITIES: No lower extremity edema. SKIN: Warm, dry, no rash. NEURO: No focal deficits. Alert and oriented x3. Answers questions appropriately. Speaks clearly without aphasia or dysarthria. PSYCH: Normal mood and affect. Course Vital Signs Vital signs: Vital Signs Temperature 97.8 F 03/22/24 12:01 Pulse Rate 66 03/22/24 12:01 Respiratory Rate 16 03/22/24 12:01 Blood Pressure 119/72 03/22/24 12:01 Pulse Oximetry 100 03/22/24 12:01 Oxygen Delivery Room Air 03/22/24 12:01 Temperature 98.1 F 03/22/24 21:36 Pulse Rate 69 03/22/24 21:36 Respiratory Rate 12 03/22/24 21:36 Blood Pressure 143/65 H 03/22/24 21:36 Pulse Oximetry 99 03/22/24 21:36 Oxygen Delivery Room Air 03/22/24 21:39 Medical Decision Making MDM Narrative Medical decision making narrative: Patient presents with 3 days of generalized weakness and confusion. She lives by herself and has been unsteady on her feet has resolved of her symptoms having 2 ft onto healy and use her walker as she previously does not use consistently. In the emergency department they are afebrile with vital signs within normal limits. Bacteria (though rare) were seen on urinalysis as was white blood cells and leukocyte esterase. Patient does note she had some genital redness and has previously had this with a UTI. Previous urine culture is reviewed which grew E. coli which was otherwise duque-sensitive to antibiotics. Will give 1st dose of ceftriaxone in the emergency department. Patient has a normocytic anemia, stable from previous. Also slight leukocytosis. Patient has baseline CKD however creatinine is more than double her previous today consistent with an JT superimposed on CKD. A second liter of fluid is ordered. Patient states that she is on the kidney transplant list through [facility]. Amenable to hospitalization. Discussed code status and, in the event of cardiopulmonary arrest, she WOULD want to be full code. Patient discussed with cable television installer hospitalist Negra Kelly. Admission will go under cable television installer hospitalist attending Dr Howe. Stable for the floor. Differential Diagnosis Differential Diagnosis: Acute viral syndrome, urinary tract infection, pneumonia, symptomatic anemia, electrolyte abnormalities Vital Signs Vital Signs: Vital Signs Temperature 97.8 F 03/22/24 12:01 Pulse Rate 66 03/22/24 12:01 Respiratory Rate 16 03/22/24 12:01 Blood Pressure 119/72 03/22/24 12:01 Pulse Oximetry 100 03/22/24 12:01 Oxygen Delivery Room Air 03/22/24 12:01 Temperature 98.1 F 03/22/24 21:36 Pulse Rate 69 03/22/24 21:36 Respiratory Rate 12 03/22/24 21:36 Blood Pressure 143/65 H 03/22/24 21:36 Pulse Oximetry 99 03/22/24 21:36 Oxygen Delivery Room Air 03/22/24 21:39 Lab Data 03/22/24 15:00 03/22/24 15:00 Labs: Lab Results 03/22/24 03/22/24 03/22/24 Range/Units 15:00 15:06 18:40 WBC 10.5 H (4.5-10.0) K/mm3 RBC 3.53 L (4.2-5.4) M/mm3 Hgb 10.7 L (12.0-15.0) g/dL Hct 35.3 L (37.0-47.0) % MCV 100.0 (80-100) fl MCH 30.3 (26-34) pg MCHC 30.3 L (32-36) g/dl RDW 14.6 H (11.5-14.5) % Plt Count 290 (150-375) k/mm3 MPV 11.4 H (7.4-10.4) fl Immature Gran % (Auto) 0.5 (0-0.5) % Neut % (Auto) 70.7 (45.5-73.1) % Lymph % (Auto) 19.4 (18.3-44.2) % [place] % (Auto) 8.0 (2.6-8.5) % Eos % (Auto) 1.1 (0-4.4) % Baso % (Auto) 0.3 (0.2-1.2) % Lymph # (Auto) 2.03 (0.9-3.2) K/mm3 [place] # (Auto) 0.8 H (0.1-0.6) K/mm3 Eos # (Auto) 0.1 (0-0.3) K/mm3 Baso # (Auto) 0.0 (0.0-0.1) K/mm3 Abs Immat Gran (auto) 0.05 H (0.00-0.031) K/mm3 Absolute Neuts (auto) 7.4 H (1.3-6.7) K/mm3 Absolute Nucleated RBC 0.000 (0.0-0.012) K/mm3 Nucleated RBC % 0.0 (0.0-0.2) % Sodium 138 (137-145) mmol/L Potassium 4.6 (3.4-5.0) mmol/L Chloride 101 (98-107) mmol/L Carbon Dioxide 28 (22-30) mmol/L Anion Gap 9 (4-12) mmol/L BUN 50 H D (7-17) mg/dL Creatinine 3.50 H (0.7-1.0) mg/dL Estim Creat Clear Calc Not Reportable Estimated GFR 13 L (59 - ) Glucose 98 (65-110) mg/dL Calcium 10.6 H (8.4-10.2) mg/dL Magnesium 2.4 H (1.6-2.3) mg/dL Total Bilirubin 0.6 (0.2-1.3) mg/dL AST 20 (14-36) U/L ALT 11 (6-35) U/L Alkaline Phosphatase 73 (38-126) U/L Total Creatine Kinase 20 L (30-135) U/L Total Protein 8.0 (6.3-8.2) g/dL Albumin 4.4 (3.5-5.1) g/dL Urine Color Yellow (Yellow) Urine Appearance Cloudy H (Clear) Urine pH 7.5 (5.0-9.0) Ur Specific [place] 1.013 (1.001-1.035) Urine Protein Trace (Negative) mg/dL Urine Glucose (UA) Negative (Negative) mg/dL Urine Ketones Negative (Negative) mg/dL Ur Blood (Man) Negative (Negative) Urine Nitrate Negative (Negative) Urine Bilirubin Negative (Negative) Urine Urobilinogen 0.2 (<2.0) mg/dL Add Ur Microanalysis Reviewed Leukocyte Esterase Rfl 2+ H (Negative) CHANCE/UL Urine RBC 0-2 (0-2) /hpf Urine WBC 51-100 H (0-3) /hpf Ur Squamous Epith Cells None seen (Few) /hpf Urine Bacteria Rare /hpf Urine Casts 0-2 Influenza A (RT-PCR) Negative (Negative) Influenza B (RT-PCR) Negative (Negative) RSV (RT-PCR) Negative (Negative) SARS-CoV-2 RNA (RT-PCR) Negative (Negative) Imaging Data Attestation: I personally reviewed and interpreted this imaging study as follows: My impression: History of left shoulder replacement as well as evidence of cardiac clips on my independent interpretation of CXR. Otherwise no acute intrathoracic process. Discharge Plan Discharge Clinical Impression: UTI (urinary tract infection), Normocytic anemia, Leukocytosis, Acute kidney injury superimposed on CKD, Generalized weakness Patient Disposition: Still a Patient Condition: Stable
[2024-03-22 17:48] VITALS: PULSE 78; RESP 16; O2SAT 100
[2024-03-22 17:54] LABS: Creatine Kinase 20 U/L (30-135); Magnesium 2.4 mg/dL (1.6-2.3)
--- NOTE | 2024-03-22 18:20 | PC.NURSE ---
Family left bedside to go let out their dog but they will be back tonight.
[2024-03-22] MEDS: SODIUM CHLORIDE 0.9% IV 1,000 ML 999 ML IV CONT ×2 (18:22→19:52)
--- NOTE | 2024-03-22 18:22 | PC.NURSE ---
Per Md Lee, no blood cultures needed prior to starting antibiotics.
[2024-03-22 19:21] LABS: Influenza A QL RT-PCR Negative (Negative); Influenza B QL RT-PCR Negative (Negative); RSV RNA, RT-PCR Negative (Negative); SARS-CoV-2 RNA PCR Negative (Negative)
[2024-03-22 19:45] VITALS: BP 131/64; PULSE 73; RESP 16; O2SAT 100
--- NOTE | 2024-03-22 20:18 | PC.NURSE ---
patient able to use bedside commode with standby assist
[2024-03-22 20:47] VITALS: BMI 24.0
[2024-03-22] MEDS: LACTATED RINGERS 1,000 ML 125 ML IV CONT (21:16)
[2024-03-22 21:30] VITALS: BP 143/65; PULSE 69; RESP 12; TEMP 36.7; O2SAT 99
[2024-03-22 21:36] VITALS: BP 143/65; PULSE 69; RESP 12; TEMP 36.7; O2SAT 99
--- NOTE | 2024-03-23 03:44 | PM.IMHP ---
H&P: HPI History of Present Illness Date/Time: 03/23/24 03:44 Chief Complaint: Increased weakness Narrative: 60-year-old female with past medical history of hyperlipidemia, hypertension, colitis, GERD, stage 4 chronic kidney disease, renal osteodystrophy, gout, anxiety and depression who presented to the ER from home in the company of family due to increased weakness. The patient had recently been hospitalized 02/24 through 02/27 due to UTI caused by pansensitive E coli. The patient lives in her own home and is usually able to ambulate take care of herself. However, the last 3 days she has been unsteady on her feet. She reports that she was so weak that she almost fell while bathing. Her cousin felt that the patient was more lethargic this morning and was concerned that she may have a recurrent UTI so brought her in for evaluation. At the time of my evaluation the patient mentions the spider that was jumping out from the wall on her. She states that she does have hallucinations not infrequently. She is alert oriented x4 at the time my evaluation besides reporting hallucinations. She stated that the hallucinations of spiders start older to the point that she had jumped out of bed and made it alf to the door before she realized what was going on. She denies having any fevers or chills at home. She has been having increased sensation of pelvic pressure which often accompanies her UTIs. She denies any hematuria. She stated that she was suspicious that she may be getting a UTI because it felt uncomfortable at the end of her urinary stream. She also feels like she has trouble emptying the last part of her urine when she gets a UTI. The patient reports that she has been thirsty to the point that she cannot keep up with the water that she is craving. She states that she has bad about forgetting to drink her water at home. She reports that last year she was brought in for a kidney transplant as the potential secondary recipient. When the did her lab work for the possible procedure they found her renal function had improved. She has subsequently been placed on hold on the transplant list until her renal function worsens. She receives all of her medical care through the [place] but is on the transplant list at [place]. Review of Systems Review of Systems: 12 systems were reviewed with pertinent positives and negatives per HPI. Except as documented in the HPI, all other systems were reviewed and are negative. PMFSH Past Medical History Medical History (Updated 03/23/24 @ 07:24 by Heidy Howe DO) Chronic renal disease, stage IV Colitis History of UTI Hypercholesteremia Hypertension Osteoarthritis Renal osteodystrophy due to hyperparathyroidism Surgical History Surgical History H/O: hysterectomy History of left shoulder replacement History of orthopedic surgery bilateral wrist Social History Social History (Updated 03/23/24 @ 08:50 by Heidy Howe DO) Social History: She is and has 1 son. She reports that she moved from assisted living to a senior apartment complex due to difficulty continuing to afford the assisted living. She served in the [employer] for 10 and half years prior to retiring. 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 She reported that she smoked for a couple of years when she was young and numb. She is does drink an alcoholic beverage every once in a while. She denies illicit substance use. Code status: Full code Surrogate decision maker: Spenser (Son) Smoking status: Former smoker Alcohol intake: current Drinks per week: 1 Substance use: never Substance use type: does not use Do You Feel Safe in your Home?: Yes Lack of Transportation: No Lack of Food: Never True Current Housing: I Have Housing Concerned About Future Housing: No Difficulty Paying Gas/Electric Bills: No Difficulty Paying for Meds: No Currently Unemployed: No Education: High School Diploma/GED Difficulty w/ Childcare or Family Care: No Living arrangements: alone Spiritual care concerns: No Meds Home Medications and Allergies Home Medications Medication Instructions Recorded Confirmed Type atenolol 25 mg tablet 25 mg PO DAILY 04/18/22 03/22/24 History atorvastatin 20 mg tablet 20 mg PO HS 04/18/22 03/22/24 History bupropion HCl 150 mg 24 hr tablet, 150 mg PO BID 04/18/22 03/22/24 History extended release (Wellbutrin XL) calcitriol 0.25 mcg capsule 0.25 mcg PO BID #30 % 03/01/24 03/22/24 Rx (Rocaltrol) allopurinol 100 mg tablet 100 mg PO DAILY 03/22/24 03/22/24 History calcium carbonate 500 mg PO DAILY 03/22/24 03/22/24 History ferrous sulfate 325 mg (65 mg 325 mg PO DAILY 03/22/24 03/22/24 History iron) tablet magnesium 250 mg tablet 250 mg PO BID 03/22/24 03/22/24 History omega 3-dha 120 mg-epa 180 mg-fish 2 cap PO BID 03/22/24 03/22/24 History oil 600 mg capsule ([place]reme [place]-3) tramadol 50 mg tablet 50 mg PO Q6H PRN Pain 03/22/24 03/22/24 History Allergies Allergy/AdvReac Type Severity Reaction Status Date / Time No Known Allergies Allergy Verified 02/23/24 14:24 Vital Signs Vital Signs - 24 hr 03/22/24 12:01 03/22/24 17:08 03/22/24 19:45 Temperature 97.8 F Pulse Rate 66 62 73 Respiratory Rate 16 18 16 Blood Pressure 119/72 154/87 H 131/64 Pulse Oximetry 100 100 100 Oxygen Delivery Room Air 03/22/24 17:48 03/22/24 21:30 03/22/24 21:39 Temperature 98.1 F Pulse Rate 78 69 Respiratory Rate 16 12 Blood Pressure 143/65 H Pulse Oximetry 100 99 Oxygen Delivery Room Air 03/22/24 21:36 Temperature 98.1 F Pulse Rate 69 Respiratory Rate 12 Blood Pressure 143/65 H Pulse Oximetry 99 Oxygen Delivery Exam Narrative: Weight 63.5 kg BMI 24 Const: Other: Chronically ill-appearing but not in any acute distress, height weight proportionate, sitting upright in bed and moving about the bed freely HENMT: Other: Mucous membranes are extremely dry, fair dentition, head is normocephalic atraumatic Eyes: Other: Marked conjunctival pallor, no scleral icterus, pupils are equal and reactive Neck: Other: No JVD, no thyromegaly Resp: Other: Clear to auscultation bilaterally, no increased work of breathing Cardio: Other: Regular rate, regular rhythm, 2+ bilateral radial pedal pulses GI: Other: Soft, nontender, nondistended, positive bowel sounds : Other: No suprapubic tenderness, continent of urine Skin: Other: Generalized pallor, non jaundice Neuro: Other: Alert orient x4 but having intermittent visual hallucinations which are not her baseline, no localizing neurologic deficits Extrem: Other: No clubbing, cyanosis or edema, moves all extremities equally Psych: Other: Appropriate mood and affect, pleasant and cooperative, occasional startling visual hallucinations of bugs H&P: Results Labs Labs: Laboratory Tests 03/22/24 15:00 03/22/24 15:00 03/22/24 03/22/24 03/22/24 15:00 15:06 18:40 WBC 10.5 H RBC 3.53 L Hgb 10.7 L Hct 35.3 L MCV 100.0 MCH 30.3 MCHC 30.3 L RDW 14.6 H Plt Count 290 MPV 11.4 H Immature Gran % (Auto) 0.5 Neut % (Auto) 70.7 Lymph % (Auto) 19.4 [place] % (Auto) 8.0 Eos % (Auto) 1.1 Baso % (Auto) 0.3 Lymph # (Auto) 2.03 [place] # (Auto) 0.8 H Eos # (Auto) 0.1 Baso # (Auto) 0.0 Abs Immat Gran (auto) 0.05 H Absolute Neuts (auto) 7.4 H Absolute Nucleated RBC 0.000 Nucleated RBC % 0.0 Sodium 138 Potassium 4.6 Chloride 101 Carbon Dioxide 28 Anion Gap 9 BUN 50 H D Creatinine 3.50 H Estim Creat Clear Calc Not Reportable Estimated GFR 13 L Glucose 98 Calcium 10.6 H Magnesium 2.4 H Total Bilirubin 0.6 AST 20 ALT 11 Alkaline Phosphatase 73 Total Creatine Kinase 20 L Total Protein 8.0 Albumin 4.4 Urine Color Yellow Urine Appearance Cloudy H Urine pH 7.5 Ur Specific [place] 1.013 Urine Protein Trace Urine Glucose (UA) Negative Urine Ketones Negative Ur Blood (Man) Negative Urine Nitrate Negative Urine Bilirubin Negative Urine Urobilinogen 0.2 Add Ur Microanalysis Reviewed Leukocyte Esterase Rfl 2+ H Urine RBC 0-2 Urine WBC 51-100 H Ur Squamous Epith Cells None seen Urine Bacteria Rare Urine Casts 0-2 Influenza A (RT-PCR) Negative Influenza B (RT-PCR) Negative RSV (RT-PCR) Negative SARS-CoV-2 RNA (RT-PCR) Negative Impressions Chest X-Ray 03/22/24 20:24 (personally reviewed and interpreted) IMPRESSION: 1. No acute cardiopulmonary disease. Assessment and Plan Assessment and plan (1) Acute UTI: Code(s): N39.0 - Urinary tract infection, site not specified Status: Acute (2) Acute kidney injury superimposed on stage 4 chronic kidney disease: Code(s): N17.9 - Acute kidney failure, unspecified; N18.4 - Chronic kidney disease, stage 4 (severe) Status: Acute (3) Dehydration: Code(s): E86.0 - Dehydration Status: Acute Plan Patient has acute kidney injury complicating chronic kidney disease stage 4. Patient's creatinine is elevated significantly above baseline of 1.4-1.6 up to 3.5 currently. Patient's mucous membranes appear markedly dry. Acute kidney injury is likely due to a combination of UTI and severe dehydration. Patient reports that she feels extremely dehydrated for the last 5 days or so. Patient was encouraged to continue with improved oral intake. Will continue IV fluids. Will repeat CBC and electrolyte panel in a.m.. Patient's UA does seem consistent with UTI. Patient is placed on Rocephin for empiric Antibiotic coverage with blood cultures and urine cultures pending patient had relative hemoconcentration with hemoglobin 2 g of with baseline. Patient had recent iron studies in February consistent with anemia of chronic disease. No evidence of acute bleeding. I anticipate patient's hemoglobin did drop after receiving IV hydration. Will avoid nephrotoxic medications. Will continue calcitriol. Patient has chronic hypocalcemia but is currently hypercalcemic also indicating dehydration please see above plan. Patient has been admitted as observation status. Quality VTE Prophylaxis VTE prophylaxis: pharmacologic ordered (Heparin 5000 units subQ q.12 h) Hospitalist [facility] Advance Care Plan I have confirmed that the patient's Advanced Care Plan is present, code status is documented, or surrogate decision maker is listed in patient medical record.: Yes Medication Reconciliation I have utilized all available resources to obtain, update and review the patients current medications (includes all prescriptions, OTC, herbals, cannabis, and nutritional supplements).: Yes
[2024-03-23 06:00] VITALS: BP 136/77; PULSE 63; RESP 12; TEMP 36; O2SAT 100
[2024-03-23 07:50] LABS: Hematocrit 27.7 % (37.0-47.0); Hemoglobin 8.6 g/dL (12.0-15.0); Mean Platelet Volume 10.6 fl (7.4-10.4); Platelet Count Result 205 k/mm3 (150-375); Red Blood Count 2.77 M/mm3 (4.2-5.4); Red Cell Distribution Width 14.5 % (11.5-14.5); White Blood Count 6.9 K/mm3 (4.5-10.0)
[2024-03-23 08:01] LABS: Magnesium 1.8 mg/dL (1.6-2.3); Phosphorus 4.2 mg/dL (2.5-4.5)
[2024-03-23 08:05] LABS: Alanine Aminotransferase 8 U/L (6-35); Albumin Level 3.2 g/dL (3.5-5.1); Alkaline Phosphatase 57 U/L (38-126); Anion Gap 5 mmol/L (4-12); Aspartate Amino Transferase 16 U/L (14-36); Bilirubin,Total 0.5 mg/dL (0.2-1.3); Blood Urea Nitrogen 39 mg/dL (7-17); Calcium 8.9 mg/dL (8.4-10.2); Carbon Dioxide 27 mmol/L (22-30); Chloride 110 mmol/L (98-107); Estimated CRCL calculation 14 ml/min; Estimated Glomerular Filt Rate 16; Glucose 80 mg/dL (65-110); Potassium 3.8 mmol/L (3.4-5.0); Sodium 142 mmol/L (137-145)
[2024-03-23] MEDS: CALCIUM CARBONATE (TUMS) 500 MG (200 MG ELEMENTAL) PO (08:24)
[2024-03-23] MEDS: buPROPion HCL SR (12 HR) 150 MG TAB PO ×2 (08:24→21:23)
[2024-03-23] MEDS: calcitrioL 0.25 MCG CAPSULE PO ×2 (08:24→16:51)
[2024-03-23] MEDS: atenoloL 25 MG TABLET PO (08:24)
[2024-03-23] MEDS: allopurinoL 100 MG TABLET PO (08:24)
[2024-03-23] MEDS: MAGNESIUM OXIDE 200 MG TABLET PO ×2 (08:24→21:23)
[2024-03-23] MEDS: OMEGA 3 POLYUNSAT FATTY ACIDS 1 GM CAP PO ×2 (08:24→16:51)
--- NOTE | 2024-03-23 10:13 | P.PNCROSS_ITS ---
Event Note Event Note Event Note: Interval history: This is a 60-year-old female who presented to the hospital for evaluation weakness. She was recently hospitalized 02/25/2024 through 02/28/2024 for UTI with urine culture read of E coli which was pansensitive. Workup in the hospital included a chest x-ray which was negative. Initial labs showed a white blood cell count of 10.5, hemoglobin 10.7, creatinine 3.50, EGFR 13, magnesium 2.4. A UA was obtained which showed cloudy urine appearance, 2+ leukocyte, 51- 100 urine wbc's, rare bacteria, negative nitrate. Respiratory panel was negative for influenza a and B, RSV, COVID. Urine culture was obtained and is pending. Last echocardiogram reviewed from 02/25/2024 showed normal LV systolic function with an estimated EF of 60-65%, mild mitral, tricuspid, pulmonic regurgitation. Patient was given 1 L of normal saline, and Rocephin while in the ED. Subjective: Patient denies any fever, chills, nausea, vomiting, diarrhea, abdominal pain, chest pain, shortness a breath. Patient endorses bladder pressure after voiding as her only symptom. Labs and imaging reviewed. Examination: General: In no acute distress, well nourished Head: atraumatic, no encephalopathy Eyes: PERRLA, sclera clear ENT: moist mucous membranes, nasal passages clear Neck: supple, no JVD, no adenopathy, trachea midline Cardiac: Normal S1 and S2. No murmur, gallops or friction rubs, peripheral pulses intact. Respiratory: Lungs clear to auscultation, no adventitious lung sounds, currently on room air Gastrointestinal: soft, non-distended, non-tender, normoactive bowel sounds. : voiding without difficulty. Extremities: moves all extremities well, no edema, good ROM, strength 5/5 Skin: clean, dry, intact. No wounds or lesions. Neuro: Alert and oriented x4, cranial nerves intact, no neuro deficits. Psych: normal mood, normal affect, interactive Plan: * continue Rocephin * urine culture obtained and pending * recently treated for UTI last month which was pansensitive for E coli * PT and OT to eval and treat * JT superimposed on CKD stage IV-- creatinine 3.0, continue to trend. initial creatinine 3.50. Was originally placed on kidney transplant list at [place] and was brought in to be secondary recipient however when they worked her up for the procedure, creatinine improved and she was subsequently placed on hold on the list considering improved kidney function. Most of her work up and care was done at the [facility]. * Continue Renal dialysis diet * continue IV fluids for now * heparin for DVT prophylaxis * continue ferrous sulfate for iron deficiency anemia
[2024-03-23] MEDS: HEPARIN SODIUM 5,000 UNITS/ML VIAL 5000 UNITS SUB-Q ×2 (11:59→21:23)
[2024-03-23] MEDS: FERROUS SULFATE 325 MG TABLET DR BY MOUTH (12:00)
[2024-03-23 14:00] VITALS: BP 146/77; PULSE 58; RESP 16; TEMP 36.1; O2SAT 100
[2024-03-23 22:00] VITALS: BP 137/71; PULSE 63; RESP 18; TEMP 36.8; O2SAT 99
[2024-03-24 06:00] VITALS: BP 131/73; PULSE 63; RESP 18; TEMP 36.5; O2SAT 98
[2024-03-24] MEDS: buPROPion HCL SR (12 HR) 150 MG TAB PO (08:59)
[2024-03-24] MEDS: CALCIUM CARBONATE (TUMS) 500 MG (200 MG ELEMENTAL) PO (08:59)
[2024-03-24] MEDS: atenoloL 25 MG TABLET PO (08:59)
[2024-03-24] MEDS: calcitrioL 0.25 MCG CAPSULE PO (08:59)
[2024-03-24] MEDS: MAGNESIUM OXIDE 200 MG TABLET PO (08:59)
[2024-03-24] MEDS: HEPARIN SODIUM 5,000 UNITS/ML VIAL 5000 UNITS SUB-Q (08:59)
[2024-03-24] MEDS: OMEGA 3 POLYUNSAT FATTY ACIDS 1 GM CAP PO (08:59)
[2024-03-24] MEDS: allopurinoL 100 MG TABLET PO (08:59)
[2024-03-24 09:05] VITALS: O2SAT 98
[2024-03-24] MEDS: FERROUS SULFATE 325 MG TABLET DR BY MOUTH (12:06)
--- NOTE | 2024-03-24 12:35 | PM.IMPN ---
Progress Note: A&P Assessment and Plan (1) Acute UTI: Code(s): N39.0 - Urinary tract infection, site not specified Status: Acute Assessment and Plan: 03/22 UA cloudy, 51-100 WBC's. Urine culture growing E coli, sensitivities pending --Follow up Urine culture (2) Acute kidney injury superimposed on stage 4 chronic kidney disease: Code(s): N17.9 - Acute kidney failure, unspecified; N18.4 - Chronic kidney disease, stage 4 (severe) Status: Acute Assessment and Plan: Patient reports dehydation for about 5 days. JT on CKD. Baseline 1.4-1.6 up to 3.5 on admission Creatinine improved to 3 03/23. Labs today are pending Usually has hypocalcemia but was elevated to 10.6 on admission and now normal. Suspect elevated due to dehydration PLAN Follow daily labs: CBC, Renal panel Encouraging PO intake Treatment of UTI Continue calcitriol (3) Dehydration: Code(s): E86.0 - Dehydration Status: Acute (4) Anemia: Code(s): D64.9 - Anemia, unspecified Status: Acute Assessment and Plan: H&H 8.6/27.7-10.7/35 on admission. Drop to 8.6 seems spurious since repeat 10.1/32.6 and no evidence of bleeding --Follow CBC with routine labs --Recent iron studies in February consistent with anemia of chronic disease. No evidence of acute bleeding. Will avoid nephrotoxic . Plan Patient has been admitted as observation status. Subjective Date/time seen: 03/24/24 12:35 Review of Systems Review of Systems: 12 systems were reviewed with pertinent positives and negatives per HPI. Except as documented in the HPI, all other systems were reviewed and are negative. Objective Data Vital Signs Vital Signs: Vital Signs - 24 hr 03/23/24 14:43 03/23/24 15:05 03/23/24 14:00 Temperature 96.9 F L Pulse Rate 58 L Respiratory Rate 16 Blood Pressure 146/77 H Pulse Oximetry 100 Oxygen Delivery Room Air Room Air 03/23/24 22:00 03/23/24 20:00 03/24/24 06:00 Temperature 98.3 F 97.7 F Pulse Rate 63 63 Respiratory Rate 18 18 Blood Pressure 137/71 131/73 Pulse Oximetry 99 98 Oxygen Delivery Room Air 03/24/24 09:05 03/24/24 08:00 Temperature Pulse Rate Respiratory Rate Blood Pressure Pulse Oximetry 98 Oxygen Delivery Room Air Intake/Output Intake/Output: Intake & Output 03/21/24 03/22/24 03/23/24 03/24/24 23:59 23:59 23:59 23:59 Intake Total 1050 1586.7 558 Output Total 425 Balance 625 1586.7 558 Meds/Results Medications: Active Medications Generic Name Dose Route Start Last Admin Trade Name Freq PRN Reason Stop Dose Admin Acetaminophen 650 mg 03/22/24 19:13 Acetaminophen 325 Mg Tablet PO Q4H PRN Mild Pain (1-3) or Fever Allopurinol 100 mg 03/23/24 09:00 03/24/24 08:59 Allopurinol 100 Mg Tablet PO 100 mg DAILY LORNA Administration Atenolol 25 mg 03/23/24 09:00 03/24/24 08:59 Atenolol 25 Mg Tablet PO 25 mg DAILY LORNA Administration Bupropion HCl 150 mg 03/23/24 09:00 03/24/24 08:59 Bupropion Hcl Sr (12 Hr) 150 Mg Tab PO 150 mg Q12HR LORNA Administration Calcitriol 0.25 mcg 03/23/24 09:00 03/24/24 08:59 Calcitriol 0.25 Mcg Capsule PO 0.25 mcg BID LORNA Administration Calcium Carbonate 500 mg 03/23/24 09:00 03/24/24 08:59 Calcium Carbonate (Tums) 500 Mg (200 Mg Elemental) PO 500 mg DAILY LORNA Administration Ferrous Sulfate 325 mg 03/23/24 12:00 03/24/24 12:06 Ferrous Sulfate [address] BY MOUTH 325 mg DAILY@1200 LORNA Administration Fish Oil 1 gm 03/23/24 09:00 03/24/24 08:59 [place] 3 Polyunsat Fatty Acids 1 Gm Cap PO 1 gm BID LORNA Administration Heparin Sodium (Porcine) 5,000 units 03/23/24 09:00 03/24/24 08:59 Heparin Sodium 5,000 Units/Ml Vial SUB-Q 5,000 units Q12HR LORNA Administration Ceftriaxone Sodium 1 gm in 50 mls @ 100 mls/hr 03/23/24 22:00 03/23/24 21:53 Rocephin 1 Gm/Ns 50 Ml IVPB Infused Q24H LORNA Infusion Magnesium Oxide 200 mg 03/23/24 09:00 03/24/24 08:59 Magnesium Oxide 200 Mg Tablet PO 200 mg Q12HR LORNA Administration Ondansetron HCl 4 mg 03/22/24 19:13 Ondansetron Inj 4 Mg/2 Ml Vial IV PUSH Q4H PRN Nausea Radiology Results: ITS Impressions Chest X-Ray 03/22/24 20:24 IMPRESSION: 1. No acute cardiopulmonary disease. Quality VTE Prophylaxis VTE prophylaxis: pharmacologic ordered (Heparin 5000 units subQ q.12 h) Hospitalist [facility] Advance Care Plan I have confirmed that the patient's Advanced Care Plan is present, code status is documented, or surrogate decision maker is listed in patient medical record.: Yes Medication Reconciliation I have utilized all available resources to obtain, update and review the patients current medications (includes all prescriptions, OTC, herbals, cannabis, and nutritional supplements).: Yes
[2024-03-24 12:38] LABS: Hematocrit 32.6 % (37.0-47.0); Hemoglobin 10.1 g/dL (12.0-15.0); Mean Corpuscular Hemoglobin 30.6 pg (26-34); Mean Corpuscular Volume 98.8 fl (80-100); Mean Platelet Volume 11.6 fl (7.4-10.4); Platelet Count Result 244 k/mm3 (150-375); Red Cell Distribution Width 14.6 % (11.5-14.5); White Blood Count 6.1 K/mm3 (4.5-10.0)
[2024-03-24 12:43] LABS: Anion Gap 10 mmol/L (4-12); Blood Urea Nitrogen 27 mg/dL (7-17); Calcium 9.7 mg/dL (8.4-10.2); Carbon Dioxide 29 mmol/L (22-30); Chloride 102 mmol/L (98-107); Estimated CRCL calculation 18 ml/min; Estimated Glomerular Filt Rate 21; Glucose 83 mg/dL (65-110); Potassium 3.5 mmol/L (3.4-5.0); Sodium 141 mmol/L (137-145)
[2024-03-24 14:00] VITALS: BP 126/66; PULSE 64; RESP 16; TEMP 36.4; O2SAT 99
--- NOTE | 2024-03-24 14:16 | P.DS_ITS ---
DS: Admitting Diagnosis Discharge Date 03/24/2024 Admitting Diagnosis UTI JT DS: Summary Hospital Course Reason for hospitalization: Copied from [facility] 03/23: 60-year-old female with past medical history of hyperlipidemia, hypertension, colitis, GERD, stage 4 chronic kidney disease, renal osteodystrophy, gout, anxiety and depression who presented to the ER from home in the company of family due to increased weakness. The patient had recently been hospitalized 02/24 through 02/27 due to UTI caused by pansensitive E coli. The patient lives in her own home and is usually able to ambulate take care of herself. However, the last 3 days she has been unsteady on her feet. She reports that she was so weak that she almost fell while bathing. Her cousin felt that the patient was more lethargic this morning and was concerned that she may have a recurrent UTI so brought her in for evaluation. At the time of my evaluation the patient mentions the spider that was jumping out from the wall on her. She states that she does have hallucinations not infrequently. She is alert oriented x4 at the time my evaluation besides reporting hallucinations. She stated that the hallucinations of spiders start older to the point that she had jumped out of bed and made it intermediate to the door before she realized what was going on. She denies having any fevers or chills at home. She has been having increased sensation of pelvic pressure which often accompanies her UTIs. She denies any hematuria. She stated that she was suspicious that she may be getting a UTI because it felt uncomfortable at the end of her urinary stream. She also feels like she has trouble emptying the last part of her urine when she gets a UTI. The patient reports that she has been thirsty to the point that she cannot keep up with the water that she is craving. She states that she has bad about forgetting to drink her water at home. She reports that last year she was brought in for a kidney transplant as the potential secondary recipient. When the did her lab work for the possible procedure they found her renal function had improved. She has subsequently been placed on hold on the transplant list until her renal function worsens. She receives all of her medical care through the [facility] but is on the transplant list at [place]. Hospital Course: Hali Mauricio was admitted for treatment of JT and a Urinary tract infection. She reports she hasn't been drinking well lately but no nausea, vomiting, or diarrhea. Planing to focus more on hydration. She denies new medications or other changes Acute UTI--She reported discomfort at the end of urination but not pain. Now voiding well. No fevers or systemic symptoms 03/22 UA cloudy, 51-100 WBC's. Urine culture growing E coli (intermediate to Ampicillin/Sulbactam but otherwise sensitive) Received 3 doses of Ceftriaxone during admission. Continue Keflex 500 BID x3 more days JT Patient report not drinking well for about 5 days. JT on CKD. Baseline 1.4-1.6 up to 3.5 on admission Creatinine improved to 3 03/23, 2.3 prior to discharge Discussed hydration with her. 2 liters of water a day for the next few days and goal is to have light yellow/almost clear urine. Usually has hypocalcemia but was elevated to 10.6 on admission and now normal. Suspect elevated due to dehydration Follow up BMP in 1-2 weeks or per PCP Anemia H&H 8.6/27.7-10.7/35 on admission. Drop to 8.6 seems spurious since repeat 10.1/32.6 and no evidence of bleeding --Follow CBC with routine labs --Recent iron studies in February consistent with anemia of chronic disease. No evidence of acute bleeding. Will avoid nephrotoxic . Status at Discharge Cognitive/behavioral status at discharge: A&Ox4 Time Spent with Patient Time attestation: Total time spent providing and/or coordinating discharge services: 58 minutes Exam Narrative: General - Awake and alert. No acute distress Eyes - PERRLA, EOM intact ENT - No thrush, No erythema Neck - No noticeable or palpable swelling Lymph Nodes - No lymphadenopathy Cardiovascular - RRR no m/r/g, no JVD Lungs: Clear to auscultation, No wheezing, use of accessory muscles, no crackles Skin - Skin warm and dry, no wounds or rashes Abdomen - Normal bowel sounds, abdomen soft and nontender No flank pain to palpation Extremities - No edema, cyanosis or clubbing Musculoskeletal - 5/5 strength, normal range of motion, no swollen or eryt hematous joints. Neurological ? Alert and oriented x 3, CN 2-12 grossly intact. Psych: Normal mood and affect DS: Data Data Completed and Pending Labs on day of discharge: Labs from last 24 hours 03/24/24 12:13 WBC 6.1 RBC 3.30 L Hgb 10.1 L Hct 32.6 L MCV 98.8 MCH 30.6 MCHC 31.0 L RDW 14.6 H Plt Count 244 MPV 11.6 H Sodium 141 Potassium 3.5 Chloride 102 Carbon Dioxide 29 Anion Gap 10 BUN 27 H D Creatinine 2.30 H Estim Creat Clear Calc 18 Estimated GFR 21 L Glucose 83 Calcium 9.7 Discharge Plan Discharge Attending physician on discharge: Daily Salomon Consulting providers: Daily Salomon Discharging Clinician: Daily Salomon Anticipated Discharge Date/Time: 03/24/24 14:16 Patient Disposition: Home, Self-Care Activity: may shower Diet: regular Discharge Instructions: Drink 2 liters of water a day (or so your urine is light yellow) Follow up with your PCP tomorrow as scheduled Labs to check your kidney function in 1-2 weeks. Your creatinine improved from 3.5 to 2.3. Urine culture grew e coli, so you were treated with ceftriaxone and continued on keflex for discharge Patient Instructions: Antibiotic Form Stand Alone Forms: General Discharge Information Follow-up/Referrals: [facility] [Primary Care Provider] - Discharge Medications: New cephalexin 500 mg capsule 500 mg PO Q12H Qty: 6 0RF Continued atorvastatin 20 mg Tablet 20 mg PO HS bupropion HCl [Wellbutrin XL] 150 mg Tablet Extended Release 24 Hr 150 mg PO BID Patient Comments: Patient unsure of dosing. Awaiting medical records. atenolol 25 mg Tablet 25 mg PO DAILY Hold Instructions: Resume on 03/10/24. calcitriol [Rocaltrol] 0.25 mcg Capsule 0.25 mcg PO BID Qty: 30 0RF calcium carbonate 500 mg calcium (1,250 mg) tablet,chewable 500 mg PO DAILY allopurinol 100 mg Tablet 100 mg PO DAILY ferrous sulfate 325 mg (65 mg iron) Tablet 325 mg PO DAILY magnesium 250 mg Tablet 250 mg PO BID Extreme [place]-3 120-180-600 mg Capsule 2 cap PO BID Held tramadol 50 mg Tablet 50 mg PO Q6H PRN (Reason: Pain) Hold Instructions: Resume on 03/31/24. After follow up with PCP Date of admission: 03/22/24 19:14 Primary Care Provider: [facility] Admitting Provider: Heidy Howe Attending physician on admission: Daily Salomon Condition: Stable Quality VTE Prophylaxis VTE prophylaxis: pharmacologic ordered Hospitalist MIPS Heart Failure (Exclusion) Patient has history of Heart Transplant or Left Ventricular Assistive Device?: No IF YES, STOP HERE Heart Failure (Qualifier) Patient has current or prior documentation of LVEF less than or equal to 40%, or mod/servere depressed LVSF?: No IF NO, STOP HERE
== END 2024-03-24 13:04 | disposition home or self-care (01) ==
LOC: ANHED 17:23 → ANH3MEDSUR 20:17
PROVIDERS: Emergency Medicine; Admitting Provider Internal Medicine; Emergency Provider Student in an Organized Health Care Education/Training Program; Visit Provider Nurse Practitioner Acute Care
DX: N39.0 Urinary tract infection, site not specified (principal); N17.9 Acute kidney failure, unspecified; B96.20 Unspecified Escherichia coli [E. coli] as the cause of diseases classified elsewhere; E86.0 Dehydration; D64.9 Anemia, unspecified; D72.829 Elevated white blood cell count, unspecified; R53.1 Weakness; I12.9 Hypertensive chronic kidney disease with stage 1 through stage 4 chronic kidney disease, or unspecified chronic kidney disease; N18.4 Chronic kidney disease, stage 4 (severe); E78.00 Pure hypercholesterolemia, unspecified; Z87.891 Personal history of nicotine dependence; Z20.822 Contact with and (suspected) exposure to COVID-19
CPT/HCPCS: 36415; 71045; 80048; 80053; 81001; 82550; 83735; 84100; 85025; 85027; 87077; 87086; 87186; 87637; 96361; 96365; 97161; 97165; 99285; A9270; G0378; J0696; J1644; J7030; J7120

== ENCOUNTER 2024-11-30 14:40 | Emergency (ER) | payer MEDICARE, OTHER, SELFPAY ==
--- OUTSIDE RECORDS SUMMARY | 2024-11-30 14:42 | XMS_ITS | Clinical Summary ---
Author Organization [email or web address] Address [address] [place] [address] Care Team Providers Care Patient Relations Specialist Name Role Phone Unavailable Primary Care Provider Unavailabl e Source Comments [facility],non-owned Affiliates and Associated Physician Practices is amultiple site organization consisting of ambulatory clinics and hospital sitesin [place], [place], [place] and [place]. This disclosure is being madepursuant to the Care Everywhere program and may not contain all information available regarding this patient. Last updated 18.[facility] Allergies No known active allergies Medications * Be aware that medications may not be up to date on this document. Alwaysverify current medications with the patient. atenolol (TENORMIN) 100 MG tablet Take 100 mg by mouth once daily Active atorvastatin (LIPITOR) 40 MG tablet Take 40 mg by mouth at bedtime Active buPROPion (WELLBUTRIN) 75 MG tablet Take 75 mg by mouth 2 times daily Active calcitriol (ROCALTROL) 0.25 MCG capsule Take 0.25 mcg by mouth once daily Active traMADol (ULTRAM) 50 MG tablet Take 50 mg by mouth every 6 hours as needed for Pain Active Loperamide (IMODIUM) 2 MG tablet Take 2 mg by mouth 4 times daily as needed for Diarrhea Active Multiple Vitamins-Minera ls (MULTIVITAMIN ADULT PO) Active Calcium Citrate-Vitamin D (CALCIUM + D PO) Active CALCITRIOL EX Active Fish Oil-Cholecalcif osmar (FISH OIL + D3) 4587-1839 MG-UNIT CAPS Active Active Problems No known active problems Family History Medical History Relation Name Comments Asthma Neg Hx CVA Neg Hx Cancer - Breast Neg Hx Cancer - Other Neg Hx Cancer - Skin, Melanoma Neg Hx Cancer - Skin, Non Melanoma Neg Hx Eczema Neg Hx Hemophilia Neg Hx Psoriasis Neg Hx Social History Tobacco Use Types Packs/Day Years Used Date Smoking Tobacco: Former Smokeless Tobacco: Never Alcohol Use Standard Drinks/Week Comments No 0 (1 standard drink = 0.6 oz pur e alcohol) Comments No Sex and Gender Information Value Date Recorded Sex Assigned at Not on file 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 [employer] Gender Identity Not on file Sexual Orientation Not on file Last Filed Vital Signs Vital Sign Reading Time Taken Comments Blood Pressure 154/99 08/22/2018 10:53 AM CDT Pulse 56 08/22/2018 10:53 AM CDT Temperature - - Respiratory Rate - - Oxygen Saturation 98% 08/22/2018 10:53 AM CDT Inhaled Oxygen Concentration - - Weight 54.4 kg (120 lb) 08/22/2018 7:18 AM CDT Height 162.6 cm (5' 4) 08/22/2018 7:18 AM CDT Body Mass Index 20.6 08/22/2018 7:18 AM CDT Plan of Treatment Health Maintenance Due Date Last Done Comments BONE DENSITY TESTING 1955 COLOGUARD (AGES 45-75) - COL ON CA SCREENING 1955 COLON MONITORING 1955 COLONOSCOPY - COLON CA SCREENING 1955 CT COLONOGRAPHY - COLON CA SCREENING 1955 Colorectal Cancer Screening 1955 FIT - COLON CA SCREENING 1955 FLEX SIG - COLON CA SCREENING 1955 MAMMOGRAM 1955 HEPATITIS C SCREENING 11/12/1973 DTAP/TDAP/TD VACCINES (1 - Tdap) 11/16/1974 PNEUMOCOCCAL VACCINE 50+ (1 of 1 - PCV) 11/16/2005 ZOSTER VACCINE (1 of 2) 11/16/2005 COVID-19 VACCINE ( - 2023-2 5 season) 2023 DEPRESSION SCREENING 04/16/2024 INFLUENZA VACCINE (#1) 2024 Respiratory Syncytial Virus (RSV) Vaccine Pt: or over 60 yrs (1 - 1-dose 75+ series) 11/16/2030 HEPATITIS B VACCINE Aged Out No longe r eligible based on patient's age to complete this topic HIB VACCINE Aged Out No longer eligi ble based on patient's age to complete this topic HPV VACCINE Aged Out No longer eligi ble based on patient's age to complete this topic MENINGOCOCCAL (Group B) VACC INE SHARED DECISION-MAKING Aged Out No longer eligibl e based on patient's age to complete this topic MENINGOCOCCAL GROUPS A/C/Y/W VACCINE Aged Out No longer eligible b ased on patient's age to complete this topic Insurance
--- OUTSIDE RECORDS SUMMARY | 2024-11-30 14:42 | XMS_ITS | Clinical Summary ---
Author Organization 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 Gender Identity Not on file Sexual Orientation Not on file Plan of Treatment Health Maintenance Due Date Last Done Comments Hepatitis C Virus (HCV) Screening 1955 TdaP Immunization 1955 Cologuard 11/16/2000 Colonoscopy 11/16/2000 Colorectal Cancer Screening 11/16/2000 Immunochemical Fecal Occult Blood 11/16/2000 Pneumococcal Immunization (5 0+ years) (1 of 1 - PCV) 11/16/2005 Zoster Immunization (1 of 2) 11/16/2005 SARS-COV-2 Immunization (2 - season) 2023 03/01/2021 Influenza Immunization (#1) 2024 Respiratory Syncytial Virus (RSV) Immunization (Adult) (1 - 1-dose 75+ series) 11/16/2030 Hepatitis B Immunization Aged Out No longer eligible based on patient's age to complete this topic Human Papillomavirus (HPV) Immunization Aged Out No longer eligible b ased on patient's age to complete this topic Meningococcal Immunization (ACWY) Aged Out No longer eligible based on patient's age to complete this topic Rotavirus Immunization Aged Out No lo nger eligible based on patient's age to complete this topic
--- OUTSIDE RECORDS SUMMARY | 2024-11-30 14:50 | XMS_ITS | Encounter Summary ---
Author Name [facility] [place] Organization [facility] [place] Address [address] [place] [address] Care Team Providers Care In Flight Technician Name Role Phone SHAHIDA ARREDONDO Primary Care Provider Unavailabl e Insurance Providers: All historical and current Section Date Range: From patient's date of to the date document was created. This section includes the names of all active insurance providers for the patient. Insurance Provider Type of Coverage Plan Name Start of Policy Coverage End of Policy Coverage Group Number Member ID Insurance Provider's Telephone Number Policy Padron's Name Patient's Relationship to Policy Padron [facility] [facility] PRESCRIPT ION NONE Mar 16, 2006 NONE [id number] [place] PATIENT AETNA [facility] PREFERRED PROVIDER ORGANIZAT ION (PPO) DEPAR TMENT OF DEFEN S Mar 16, 2006 [id number] [phone] [place],DE BRA PATIENT MEDICARE (WNR) MEDICARE (M) PART B Nov 14, 2020 PART B [id number] [phone] SHELBY BRA PATIENT MEDICARE (WNR) MEDICARE (M) PART A Nov 14, 2020 PART A [id number] TRINIDAD,DE BRA PATIENT Selected Encounter This section includes the information on record at [place] for the Encounter. Date/Time Encounter Type Encounter Description Reason Provider Source May 09, 2024 09:45 AM Outpatient Encounter CLINICAL PHARMACY ICD-10-CM N39.0 Urinary tract infection, site not specified DOMINGO SALVADOR IHOscar Encounter Template Text not used by [place] Assessments - Encounter Diagnoses This section includes the primary and secondary diagnoses documented for the Encounter. Date/Time Primary/Secondary Diagnosis Diagnosis Name Provider Source May 11, 2024 09:29 AM PRIMARY Urinary tract infection, site not specified DOMINGO SALVADOR [facility] Plan of Treatment: Future Appointments (+ 6 months) and Future Tests (+/- 45 days) The Plan of Treatment section includes future care activities for the patient [facility] This section includes future appointments and future orders which are active, pending or scheduled. Future Appointments This section includes appointments that were scheduled to occur 6 months from the date of the Encounter, up to a maximum of 20 appointments. The data comes from all [place] treatment facilities. Appointment Date/Time Appointment Type Appointme nt Facility Name May 30, 2024 10:00 AM AMBULATORY - [facility]ICINE [facility] May 30, 2024 01:30 PM AMBULATORY - NONE [facility] Jun 13, 2024 09:00 AM AMBULATORY - SURGERY [facility] Jun 20, 2024 11:00 AM AMBULATORY - SURGERY [facility] Jul 09, 2024 01:00 PM AMBULATORY - SURGERY [facility] Jul 18, 2024 11:40 AM AMBULATORY - MEDICINE [facility] Jul 29, 2024 12:00 PM AMBULATORY - NONE [facility] Aug 11, 2024 12:20 PM AMBULATORY - MEDICINE [facility] September 09, 2024 12:00 PM AMBULATORY - NONE [facility] Oct 06, 2024 01:20 PM AMBULATORY - SURGERY [facility] Oct 21, 2024 11:30 AM AMBULATORY - MEDICINE . [facility] Oct 28, 2024 01:45 PM AMBULATORY - MEDICINE [facility] Oct 29, 2024 01:30 PM AMBULATORY - NONE [facility] Oct 29, 2024 02:00 PM AMBULATORY - NONE [facility] Active, Pending, and Scheduled Orders This section includes a listing of several types of active, pending, and scheduled orders, including clinic medications orders, diagnostic test orders, procedure orders and consult orders; where the start date of the order is 45 days before the date of the Encounter or 45 days after the date of theEncounter. The data comes from all [facility] facilities. Test Date/Time Test Type Test Details Facility Name Mar 25, 2024 12:00 AM Laboratory - Chemi stry Order URINALYSIS (STL-PB) URINE [facility] Mar 25, 2024 12:00 AM Laboratory - Microbiology Order C&S URINE URINE,CLEAN CATCH [facility] Mar 28, 2024 11:15 AM Laboratory - Chemi stry Order COPPER BLOOD IN AM [facility] Lab Results: +/- 30 days of the encounter This section includes the Chemistry and Hematology Lab Results on record with [place] for the patient. Radiology Reports and Pathology Reports are provided separately, in subsequent sections. Lab Results This section contains the Chemistry/Hematology Results that were resulted 30 days before or 30 daysafter the date of the Encounter. Date/Time Source Result Type Result - Unit Interpretation Reference Range Specimen Type Comment May 30, 2024 02:26 PM [facility] TRAMADOL URINE Specimen Type: URINE Comment: Reporting limit: 100 ng/mL This test was developed and its analytical performance characteristics have been determined by [employer] [place], [place]. It has not been cleared or approved by the U.S. Food and Drug Administration. This assay has been validated pursuant to the CLIA regulations and is used for clinical purposes. Test Performed by [facility], [employer] [place], [address] [place] [address] Iker Simon M.D., Ph.D., Director of Laboratories , CLIA [id number] Ordering Provider: SHAHIDA ARREDONDO Report Released Date/Time: May 30, 2024 10:28 AM Reporting Lab: [facility] [address] [facility] [facility] [address] Performing Lab: [facility] [address] [facility] [address] TRAMADOL Negative May 30, 2024 02:26 PM [facility] URINE DRUG SCREEN (STL) URINE Specimen Type: URINE Comment: The cut-off value for Fentanyl was laboratory developed and its performance characteristics confirmed by the [facility] laboratory thru method comparison with reference laboratory and medication chart review. The laboratory is regulated under CLIA as qualified to perform high-complexity testing. Fentanyl is used for clinical purposes in conjunction with other laboratory tests. Ordering Provider: SHAHIDA ARREDONDO Report Released Date/Time: May 30, 2024 10:28 AM Reporting Lab: [facility] [address] [facility] [address] Performing Lab: [address] [address] ETHANOL <10 mg/dL 0-9 AMPHET/METHAMPHETAMINE Negative ng/mL COCAINE METABOLITES Negative ng/mL BENZODIAZEPINES (STL) Negative ng/mL CANNABINOIDS Negative ng/mL METHADONE Negative ng/mL OPIATES Negative ng/mL CREATININE URINE/OTHERS 46.6 mg/dL L 47-11 0 OXYCODONE (GSEQS-DBF-NR) Negative ng/mL BUPRENORPHINE (STL-PB-MA) Negative ng/mL FENTANYL (STL) Negative ng/mL May 30, 2024 02:26 PM [facility] BASIC METABOLIC PANEL PLASMA Specimen Type: PL ASMA Comment: No hemolysis noted. Ordering Provider: SHAHIDA ARREDONDO Report Released Date/Time: May 30, 2024 10:41 AM Reporting Lab: [facility] [address] [facility] [address] Performing Lab: [address] [address] CREATININE 2.31 mg/dL H 0.6-1.1 UREA NITROGEN 38.3 mg/dL H 9.0-25.0 GLUCOSE 102 mg/dL H 72-99 SODIUM 142 meq/L 136-145 POTASSIUM 4.0 meq/L 3.5-5 CHLORIDE 105 meq/L 98-107 CARBON DIOXIDE 25 meq/L 22-31 CALCIUM 7.5 mg/dL L 8.4-10.4 EGFR (CKD-EPI 2020) 22.5 >60 May 30, 2024 01:27 PM [facility] I-STAT, CREAT (STL-MA) BLOOD Specimen Type: B LOOD Comment: Test Performed by: [id number] Meter #: [id number] Ordering Provider: SHAHIDA ARREDONDO Report Released Date/Time: May 30, 2024 01:28 PM Reporting Lab: [address] [address] Performing Lab: [address] [address] I-STAT, CREAT (L-MA) 2.6 mg/dL H 0.7-1.3 May 06, 2024 01:[address] [facility] BASIC METABOLIC PANEL PLASMA Specimen Type: PL ASMA Comment: No hemolysis noted. Ordering Provider: DIMPLE BISWAS Report Released Date/Time: May 06, 2024 11:33 AM Reporting Lab: [address] [address] Performing Lab: [address] [address] CREATININE 1.84 mg/dL H 0.6-1.1 UREA NITROGEN 29.3 mg/dL H 9.0-25.0 GLUCOSE 87 mg/dL 72-99 SODIUM 138 meq/L 136-145 POTASSIUM 3.6 meq/L 3.5-5 CHLORIDE 100 meq/L 98-107 CARBON DIOXIDE 25 meq/L 22-31 CALCIUM 8.5 mg/dL 8.4-10.4 EGFR (CKD-EPI 2020) 29.5 >60 May 06, 2024 01:[address] [facility] URINALYSIS (L-PB) URINE Specimen Type: URIN E No comment entered. Ordering Provider: DIMPLE BISWAS Report Released Date/Time: May 06, 2024 10:43 AM Reporting Lab: [address] [address] Performing Lab: [facility] [address] [facility] [address] URINE COLOR Colorless Yellow U.BILIRUBIN Negative mg/dL Negative U.PH 7.0 5.0-8.0 URINE WBC/HPF 44 /[HPF] H 0-5 URINE RBC/HPF 1 /[HPF] 0-5 APPEARANCE Clear Clear U.NITRITE Negative mg/dL Negative WBC Clumps OCC /[HPF] Negative-Rare BACTERIA RARE /[HPF] Negative SQUAMOUS EPITH. <1 /[HPF] 0-5 URN.GLUCOSE Normal mg/dL Negative URN.PROTEIN 30 mg/dL H URN.UROBILINOGEN Normal mg/dL Normal URN.BLOOD Negative mg/dL Negative-Trace URN.KETONES Negative mg/dL Negative-Trac e URN.LEUK.EST. 500 mg/dL H Negative-Trace URN.SPECIFIC GRAVITY 1.006 Social History: Smoking Status (Most current) and Tobacco Use (All prior to encounter date) This section includes the most current, and the historical, smoking and tobacco- related health factors from the [place] facility where the Encounter took place. Current Smoking Status This section includes the most current smoking, or tobacco-related health factor, from the PR facility where the Encounter took place. Date/Time Current Smoking Status Comment Abbie ity Mar 28, 2024 12:54 PM ORYX ADMIT TOBACCO SCREEN REFUSED [facility] Tobacco Use History This section includes a history of the smoking, or tobacco-related health factors, that were collected on or before the date of the Encounter. The data comes from the PR facility where the Encounter took place. Date/Time Smoking Status/Tobacco Use Comment F acility Sep 24, 2023 01:20 PM VA-TOBACCO FORMER USER [facility] Sep 24, 2023 01:20 PM VA-TOBACCO QUIT 15 YRS OR MORE [facility] Apr 06, 2021 07:54 PM ORYX ADMIT TOBACCO SCREEN NO [facility] Jul 26, 2020 09:33 AM VA-TOBACCO FORMER USER [facility] Jul 26, 2020 09:33 AM VA-TOBACCO QUIT 15 YRS OR MORE [facility] Aug 13, 2019 05:31 PM ORYX ADMIT TOBACCO SCREEN NO [facility] Nov 26, 2008 11:49 AM QUIT TOBACCO >7 YEARS AGO [facility] Advance Directives: All historical and current Section Date Range: From patient's date of to the date document was created. This section includes ALL of a patient's completed or amended [place] Advance and Rescinded Directives. The entries below indicate that a directive exists for the patient, but an actual copy is not included with this document. The data comes from all [place] facilities. Date Advance Directives Provider Source Nov 18, 2021 STATE-AUTHORIZED POR TABLE ORDERS ELIDIA NOONAN [facility] Radiology Reports: +/- 30 days of the encounter Radiology Reports For cases when an order for radiology services may have been completed prior to the date of the Encounter, the report list includes the Radiology Reports that were completed up to 30 days before dateof the Encounter. For cases when an order for radiology services may have been completed after the date of the Encounter, the report list also includes the Radiology Reports that were completed up to30 days after date of the Encounter. The data comes from all [place] treatment facilities. Date/Time Radiology Report Provider Source May 30, 2024 01:11 PM MRI ABDOMEN W/O&W CONT: JOVANA TRINIDAD [id number] F Exm Date: MAY 30, 2024@13:11 Req Phys: SHAHIDA ARREDONDO Pat Loc: [facility] PACT 2 PCP (Req'g Lo Img Loc: [facility] Service: [facility], [facility] [address] [place] [address] (Case [id number] COMPLETE) MRI ABDOMEN W/O&W CONT (MRI Detailed) CPT:50987 Contrast Media : Non-ionic Iodinated Reason for Study: Had ctscan of abd/pelvis (and hosp) showed 2 renal masses Clinical History: Responsible Attending: Shahida Arredondo MD Attending Contact Number: [phone] Resident Contact Number: Patient with chronic kidney disese Does your patient have an implanted device or hardware? (Any prosthesis, implant, shrapnel or bullet fragments) No Does your patient have any of the following (Please check all that apply) [ ] Pacemaker [ ] AICD [ ] Neuro-stimulator [ ] Bone Growth Stimulator [ ] Pain Pump [ ] Insulin Pump [ ] Cochlear Implant [ ] Ocular Implant [ ] Aneurysm Clip [ ] Vascular Clip Any other type of implant, please explain Does your patient have a Coronary Stent: No Does your patient have a an artificial Heart Valve: No Were any of the following intravascular implanted devices inserted less than 6 weeks ago: Stent No IVC Filter No Embolization Coils No Is your patient's weight >350lbs or abdominal and shoulder width >60cm? No Does your patient have Renal Failure, Chronic or Acute Renal Disease? Yes If ordering a contrasted enhanced MRI, you will be required to complete the order for creatine eGFR which is located at the bottom of the MRI ordering screen. If your patient is 60 years or older, the patient will need a recent eGFR within 30 days prior to the exam. NOTE: Incorrectly answering these questions may result in a delay in the procedure. A patient with a device or implant does not automatically mean the patient cannot receive an MRI. If your patient will have difficulty with a confined space, the provider will be responsible for ordering a sedation prior to the procedure, or to order an alternative procedure. --------- In the event this patient needs referred to Community Care: Does this patient have mobility issues that will require additional assistance at the imaging center? No If yes, please provide specifics: Does this patient require an open bore MRI due to claustrophobia? No Has a close bore MRI with oral sedation been tried? No This order requests: With and Without Report Status: Verified Date Reported: JUN 03, 2024 Date Verified: JUN 03, 2024 Banking Analyst E-Sig:/ES/MILTON ALMEIDA MD Report: MRI of kidneys. Multiplanar, multisequence imaging of the abdomen was performed with and without Gadolinium. Comparison: Noncontrast Outside CT from 02/23/[address] from 09/06/2010 and renal ultrasound from 04/14/2024 Liver: Mildly dilated common bile duct up to 9 mm, mild central intrahepatic biliary dilatation The spleen: normal Pancreas:normal Kidneys:Bosniak 1 and 2 renal cysts bilaterally, relatively numerous. Subtraction images do not demonstrate any significant enhancement of any of the renal lesions, and the appearance of the outside CT scan is relatively similar to the prior in-house noncontrast CT scan from 2010 with medullary nephrocalcinosis and other scattered renal parenchymal lesions. One of the cysts at the lower pole of the right kidney demonstrates an enhancing thin septum, and contains calcifications on CT scan, similar to prior exam. Adrenal glands:normal Aorta : caliber does not exceed 2.9 cm No ascites or retroperitoneal adenopathy. Impression: 1. I would classify all the renal lesions as Bosniak 1 or 2 benign renal cysts that do not require any imaging follow-up, with no solid nodules, no thick enhancing septations, and no enhancement on subtraction images. 2. Mild dilatation of the biliary tree Primary Interpreting Staff: MILTON ALMEIDA MD, Radiologist (Banking Analyst) /MILTON BRODERICK [facility] Apr 14, 2024 01:58 PM US RENAL COMPLETE: NORIS TRINIDADA BIRDIE [id number] -[id number] F Exm Date: APR 14, 2024@13:58 Req Phys: SHAHIDA ARREDONDO Pat Loc: [facility]ST CLR PACT 2 PCP (Mckenzie'g Lo Img Loc: [facility]ULTRASOUND [facility] Service: Unknown [address] [address] (Case [id number] COMPLETE) US RENAL COMPLETE (US Detailed) CPT:26073 Reason for Study: worsening kidney funcion Clinical History: Report Status: Verified Date Reported: APR 14, 2024 Date Verified: APR 14, 2024 Banking Analyst E-Sig:/ES/MARYANN HOPKINS Report: Case [id number]. US RENAL COMPLETE. TECHNIQUE: Realtime ultrasound examination of the kidneys was obtained in transverse and longitudinal projections. The bladder was also imaged. COMPARISON: Renal ultrasound dated 08/14/2019 FINDINGS: Right kidney: 9.8 x 5.6 x 4.2 cm. Left kidney: 10.0 x 4.8 x 3.8 cm. There is bilateral renal cortical thinning. No calculi are identified. Mild right hydronephrosis. No solid renal masses are seen. Bilateral renal cysts. The largest on the right measures 1.6 x 1.4 x 1.3 cm. The largest on the left measures 1.0 x 1.1 x 1.0 cm. The bladder has a normal configuration in a moderately distended state. No bladder calculi are identified. Impression: Mild right hydronephrosis. No renal calculi or solid renal mass. Bilateral renal parenchymal thinning may represent chronic renal disease. Report dictated by Gera Yee (president of the [place]) I, Maryann Hopkins, have reviewed the images and report and concur with these findings. Primary Interpreting Staff: MARYANN HOPKINS MD (Banking Analyst) Primary Interpreting Resident: GERA YEE MD /MARYANN FLOREZ [facility] Pathology Reports: +/- 30 days of the encounter Pathology Reports For cases when an order for pathology services may have been completed prior to the date of the Encounter, the report list includes the Pathology Reports that were completed up to 30 days before dateof the Encounter. For cases when an order for pathology services may have been completed after the date of the Encounter, the report list also includes the Pathology Reports that were completed up to30 days after date of the Encounter. The data comes from all [place] treatment facilities. Date/Time Pathology Report Provider Source May 06, 2024 01:35 PM MICROBIOLOGY RE PORT: Accession [UID]: [id number] [[id number]] Received: May 06, 2024@16:50 Collection sample: URINE,CLEAN CATCH Collection date: May 06, 2024 13:35 Site/Specimen: URINE Provider: DIMPLE BISWAS Test(s) ordered: C&S URINE..................... completed: May 08, 2024 14:05 * BACTERIOLOGY FINAL REPORT => May 08, 2024 14:11 TECH CODE: [id number] CULTURE RESULTS: ESCHERICHIA COLI - Quantity: >75,000 - <100,000 CFU/ML Comment: SENSITIVITIES PENDING 05/07/24 [facility] Susceptibilities Complete 05/08/24 [facility] ANTIBIOTIC SUSCEPTIBILITY TEST RESULTS: ESCHERICHIA COLI : SUSC INTP AMIKACIN ..................... =2.0 S GENTAMICIN................... . <=1.0 S TOBRAMYCIN................... . <=1.0 S AMPICILLIN/SULBACTAM......... . =16.0 I PIPERACILLIN/TAZOBACTAM...... . <=4.0 S ERTAPENEM.................... . <=0.12 S IMIPENEM..................... . <=0.25 S CEFAZOLIN.................... . =4.0 R CEFEPIME..................... . <=0.12 S CEFTRIAXONE.................. . <=0.25 S ESBL......................... . NEG NEG CIPROFLOXACIN................ . <=0.06 S SULFA/TRIMETHAPRIM........... . <=20.0 S NITROFURANTOIN............... . <=16.0 S AMPICILLIN................... . >=32.0 R AUGMENTIN.................... . S S AZTREONAM.................... . <=1.0 S CEFPODOXIME.................. . <=0.25 S Bacteriology Remark(s): 05/07/24 [facility] SUSCEPTIBILITIES SET UP TODAY. 05/08/24 [facility] CULTURE COMPLETE. =--=--=--=--=--=--=--=--=--=- -=--=--=--=--=--=--=--=--=--= --=--=--=--=--=--=-- Performing Laboratory: Bacteriology Report [facility]formed By: [facility]# [id number] [address] [address] ANA LILIA SESAY [facility] Encounter Notes: All associated encounter notes This section contains the clinical notes associated to the Encounter. 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 [place] has complaints of pressure when urinating and urinary frequency. Reports history of UTIs and she is concerned about possible UTI. Denies dysuria, flank pain, fever, chills. The purpose of this note is for assessment of a potential antibiotic change based on new microbiological data. ABX: none at this time Indication: UTI Height: 64 in [162.6 cm] (12/05/2023 10:27) Weight: 108.3 lb [49.12 kg] (03/30/2024 05:42) UREA NITROGEN 29.3 H mg/dL 05/06/2024 13:35 CREATININE 1.84 H mg/dL 05/06/2024 13:35 EGFR (CKD-EPI 2020) 29.5 05/06/2024 13:35 Calculated CrCl: 25 mL/min based on Cockcroft-Gault Culture Results: ANTIBIOTIC SUSCEPTIBILITY TEST RESULTS: ESCHERICHIA COLI SUSC INTP AMIKACIN ..................... =2.0 S GENTAMICIN................. ... <=1.0 S TOBRAMYCIN................. ... <=1.0 S AMPICILLIN/SULBACTAM....... ... =16.0 I PIPERACILLIN/TAZOBACTAM.... ... <=4.0 S ERTAPENEM.................. ... <=0.12 S IMIPENEM................... ... <=0.25 S CEFAZOLIN.................. ... =4.0 R CEFEPIME................... ... <=0.12 S CEFTRIAXONE................ ... <=0.25 S ESBL....................... ... NEG NEG CIPROFLOXACIN.............. ... <=0.06 S SULFA/TRIMETHAPRIM......... ... <=20.0 S NITROFURANTOIN............. ... <=16.0 S AMPICILLIN................. ... >=32.0 R AUGMENTIN.................. ... S S AZTREONAM.................. ... <=1.0 S CEFPODOXIME................ ... <=0.25 S Recommendations: - E. coli is susceptible to cefpodoxime - Cefpodoxime is renally adjusted for patients with CrCl of <30 mL/min to once daily dosing due to having CrCl <30 mL/min at 25 mL/min - Recommend initiating cefpodoxime 100 mg PO once daily x 7 days Written by: Asia Navarro.D. Candidate 2024 --Minutes spent on review: /es/ DOMINGO SALVADOR PHARM.DMelanie, [facility] Clinical Machine Setup Operator/Faculty Signed: 05/11/2024 09:29 DOMINGO SALVADOR [facility]
--- OUTSIDE RECORDS SUMMARY | 2024-11-30 14:50 | XMS_ITS | Encounter Summary ---
Author Name [facility] [place] [facility] [facility] [place] Address [address] [place] [address] Care Team Providers Care Carousel Attendant Name Role Phone MARIA ELENACAMERONID Primary Care Provider Unavailabl e Insurance Providers: [...] PRESCRIPT ION NONE Mar 16, 2006 NONE [id number] [place] PATIENT AETNA [facility] PREFERRED PROVIDER ORGANIZAT ION (PPO) DEPAR TMENT OF DEFEN S Mar 16, 2006 [id number] [phone] [place] PATIENT MEDICARE (WNR) MEDICARE (M) PART B Nov 14, 2020 PART B [id number] SHELBY BRA PATIENT MEDICARE (WNR) MEDICARE (M) PART A Nov 14, 2020 PART A [id number] [phone] [place] PATIENT Selected Encounter This section includes the information on record at [place] for the Encounter. Date/Time Encounter Type Encounter Description Reason Provider Source Mar 28, 2024 12:20 PM OFFICE O/P EST MOD 30 MIN NEUROLOGY ICD-10-CM R26.89 Other abnormalities of gait and mobility [facility]AG[facility] Encounter Template Text not used by [place] Assessments - Encounter Diagnoses This section includes the primary and secondary diagnoses documented for the Encounter. 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 This section includes future appointments and future orders which are active, pending or scheduled. Future Appointments This section includes appointments that were scheduled to occur 6 months from the date of the Encounter, up to a maximum of 20 appointments. The data comes from all [place] treatment facilities. Appointment Date/Time Appointment Type Appointme nt Facility Name Apr 02, 2024 10:00 AM AMBULATORY - MEDICINE [facility] Apr 14, 2024 02:30 PM AMBULATORY - MEDICINE [facility] Apr 30, 2024 02:00 PM AMBULATORY - NONE [facility] May 06, 2024 10:30 AM AMBULATORY - NONE . FARAZ Jordan [facility] May 30, 2024 10:00 AM AMBULATORY - MEDICINE [facility] May 30, 2024 01:30 PM AMBULATORY - NONE . FARAZ Jordan [facility] Jun 13, 2024 09:00 AM AMBULATORY - SURGERY [facility] SUAREZ [facility] Jun 20, 2024 11:00 AM AMBULATORY - SURGERY [facility] Jul 09, 2024 01:00 PM AMBULATORY - SURGERY [facility] Fabián NEHEMIAS [facility] Jul 18, 2024 11:40 AM AMBULATORY - MEDICINE [facility] Jul 29, 2024 12:00 PM AMBULATORY - NONE . FARAZ Jordan [facility] Aug 11, 2024 12:20 PM AMBULATORY - MEDICINE [facility] September 09, 2024 12:00 PM AMBULATORY - NONE [facility] Active, Pending, and Scheduled Orders This section includes a listing of several types of active, pending, and scheduled orders, including clinic medications orders, diagnostic test orders, procedure orders and consult orders; where the start date of the order is 45 days before the date of the Encounter or 45 days after the date of theEncounter. The data comes from all [place] treatment facilities. Test Date/Time Test Type Test Details Facility Name Mar 25, 2024 12:00 AM Laboratory - Chemi stry Order URINALYSIS (STL-PB) URINE [facility] Mar 25, 2024 12:00 AM Laboratory - Microbiology Order C&S URINE URINE,CLEAN CATCH [facility] Mar 28, 2024 11:15 AM [facility] Order COPPER BLOOD IN AM [facility] Lab Results: +/- 30 days of the encounter This section includes the Chemistry and Hematology Lab Results on record with [facility] for the patient. Radiology Reports and Pathology Reports are provided separately, in subsequent sections. Lab Results This section contains the Chemistry/Hematology Results that were resulted 30 days before or 30 daysafter the date of the Encounter. Date/Time Source Result Type Result - Unit Interpretation Reference Range Specimen Type Comment Mar 30, 2024 07:44 AM [facility] CBC BLOOD Specimen Type: BLOOD No comment entered. Ordering Provider: REINA PANDEY Report Released Date/Time: Mar 28, 2024 03:46 PM Reporting Lab: [address] [address] Performing Lab: [address] [address] WBC 6.7 10*3/uL 3.6-11.2 RBC 3.35 10*6/uL L 3.60-5.00 HGB 10.0 g/dL L 11.0-14.9 HCT 32.9 32.6-43.4 MCV 98.2 fL 80.0-100.0 MCH 29.9 pg 27.0-34.0 MCHC 30.4 g/dL L 33.0-36.0 PLT 209 10*3/uL 150-400 MPV 11.9 fL H 7.5-11.2 RDW 14.4 11.8-15.1 LYMPHOCYTES, AUTO % 30 MONOCYTES, AUTO % 8 NEUTROPHILS, AUTO % 59 EOSINOPHILS, AUTO % 4 BASOPHILS, AUTO % 0 LYMPHOCYTES, ABSOLUTE 1.98 10*3/uL 0.77- 4.50 MONOCYTES, ABSOLUTE 0.50 10*3/uL 0.19-0. 80 NEUTROPHILS, ABSOLUTE 3.91 10*3/uL 2.10- 8.00 EOSINOPHILS, ABSOLUTE 0.24 10*3/uL 0.00- 0.60 BASOPHILS, ABSOLUTE 0.01 10*3/uL 0.00-0. 20 Mar 30, 2024 07:44 AM [facility] BASIC METABOLIC PANEL PLASMA Specimen Type: PL ASMA Comment: No hemolysis noted. Ordering Provider: REINA PANDEY Report Released Date/Time: Mar 28, 2024 03:46 PM Reporting Lab: [address] [address] Performing Lab: [address] [address] CREATININE 2.19 mg/dL H 0.6-1.1 UREA NITROGEN 30.2 mg/dL H 9.0-25.0 GLUCOSE 123 mg/dL H 72-99 SODIUM 144 meq/L 136-145 POTASSIUM 3.6 meq/L 3.5-5 CHLORIDE 106 meq/L 98-107 CARBON DIOXIDE 24 meq/L 22-31 CALCIUM 10.8 mg/dL H 8.4-10.4 EGFR (CKD-EPI 2020) 24.0 >60 Mar 29, 2024 07:59 AM [facility] CORTISOL(STL Eff 01/21) PLASMA Specimen Type: PLASMA Comment: No hemolysis noted. Ordering Provider: REINA PANDEY Report Released Date/Time: Mar 28, 2024 05:00 PM Reporting Lab: [address] [address] Performing Lab: [address] [address] CORTISOL(L Eff 01/21) 14.700 ug/dL Mar 29, 2024 07:59 AM [facility] BASIC METABOLIC PANEL PLASMA Specimen Type: PL ASMA Comment: No hemolysis noted. Ordering Provider: REINA PANDEY Report Released Date/Time: Mar 28, 2024 03:46 PM Reporting Lab: [address] [address] Performing Lab: [address] [address] CREATININE 2.58 mg/dL H 0.6-1.1 UREA NITROGEN 39.0 mg/dL H 9.0-25.0 GLUCOSE 137 mg/dL H 72-99 SODIUM 145 meq/L 136-145 POTASSIUM 3.8 meq/L 3.5-5 CHLORIDE 106 meq/L 98-107 CARBON DIOXIDE 24 meq/L 22-31 CALCIUM 10.9 mg/dL H 8.4-10.4 EGFR (CKD-EPI 2020) 19.7 >60 Mar 29, 2024 07:59 AM [facility] CBC BLOOD Specimen Type: BLOOD No comment entered. Ordering Provider: REINA PANDEY Report Released Date/Time: Mar 28, 2024 03:46 PM Reporting Lab: [address] [address] Performing Lab: [address] [place] [address] WBC 5.9 10*3/uL 3.6-11.2 RBC 3.27 10*6/uL L 3.60-5.00 HGB 9.9 g/dL L 11.0-14.9 HCT 31.8 L 32.6-43.4 MCV 97.2 fL 80.0-100.0 MCH 30.3 pg 27.0-34.0 MCHC 31.1 g/dL L 33.0-36.0 PLT 203 10*3/uL 150-400 MPV 12.0 fL H 7.5-11.2 RDW 14.5 11.8-15.1 LYMPHOCYTES, AUTO % 31 MONOCYTES, AUTO % 10 NEUTROPHILS, AUTO % 55 EOSINOPHILS, AUTO % 4 BASOPHILS, AUTO % 0 LYMPHOCYTES, ABSOLUTE 1.83 10*3/uL 0.77- 4.50 MONOCYTES, ABSOLUTE 0.59 10*3/uL 0.19-0. 80 NEUTROPHILS, ABSOLUTE 3.24 10*3/uL 2.10- 8.00 EOSINOPHILS, ABSOLUTE 0.26 10*3/uL 0.00- 0.60 BASOPHILS, ABSOLUTE 0.01 10*3/uL 0.00-0. 20 Mar 28, 2024 07:20 PM [facility] URINALYSIS W/ CX REFLEX (STL-PB) URINE Specim en Type: URINE No comment entered. Ordering Provider: REINA PANDEY Report Released Date/Time: Mar 28, 2024 02:27 PM Reporting Lab: [address] [address] Performing Lab: [address] [address] URINE COLOR Colorless Yellow U.BILIRUBIN Negative mg/dL Negative U.PH 7.5 5.0-8.0 APPEARANCE Clear Clear U.NITRITE Negative mg/dL Negative URN.GLUCOSE Normal mg/dL Negative URN.PROTEIN Negative mg/dL URN.UROBILINOGEN Normal mg/dL Normal URN.BLOOD Negative mg/dL Negative-Trace URN.KETONES Negative mg/dL Negative-Trac e URN.LEUK.EST. Negative mg/dL Negative-Tr kiarra URN.SPECIFIC GRAVITY 1.008 Mar 28, 2024 06:11 PM [facility] METHYLMALONIC ACID SERUM Specimen Type: SERUM Comment: Serum methylmalonic acid (MMA) levels are used to diagnose and monitor several rare inborn errors of metabolism, including methylmalonic aciduria. The enzymatic conversion of MMA to succinic acid requires vitamin B12 (adenosyl-cobalamin) as a cofactor. Serum MMA levels are also used for assessing functional vitamin B12 deficiency. Vitamin B12 is essential for neurodevelopment, particularly early in . Undiagnosed maternal vitamin B12 deficiency may be associated with adverse / outcomes, such as neural tube defects and intrauterine growth restriction. [facility] utilized Multi-Modal Decomposition (MMD) analysis to establish first and second trimester- specific MMA reference intervals in , as given below: MMA, First trimester (<13 wks gestation): 58-167 nmol/L MMA, Second trimester (13-23 wks gestation): 63-241 nmol/L This test was developed and its analytical performance characteristics have been determined by [facility]. It has not been cleared or approved by the FDA. This assay has been validated pursuant to the CLIA regulations and is used for clinical purposes. Test Performed by [facility], [facility], [address] [place] [address] Iker Simon M.D., Ph.D., Director of Laboratories , CLIA [id number] Ordering Provider: REINA PANDEY Report Released Date/Time: Mar 28, 2024 03:46 PM Reporting Lab: [facility] [address] [facility] [address] Performing Lab: [facility] [address] [facility] METHYLMALONIC ACID 512 nmol/L H 69-390 Mar 28, 2024 06:11 PM [facility] FOLATE (STL-MA) SERUM Specimen Type: SERUM No comment entered. Ordering Provider: REINA PANDEY Report Released Date/Time: Mar 28, 2024 03:46 PM Reporting Lab: [facility] [address] [facility] [address] Performing Lab: [facility] [address] [facility] [address] FOLATE (STL-MA) 13.9 ng/mL 7-20 Mar 28, 2024 06:11 PM [facility] B12 SERUM Specimen Type: SERUM No comment entered. Ordering Provider: REINA PANDEY Report Released Date/Time: Mar 28, 2024 03:46 PM Reporting Lab: [place] [phone] Performing Lab: [address] [address] B12 287 pg/mL 213-816 Mar 28, 2024 06:11 PM [facility] TSH W/ REFLEX FT4 (L) PLASMA Specimen Type: PLASMA No comment entered. Ordering Provider: REINA PANDEY Report Released Date/Time: Mar 28, 2024 03:46 PM Reporting Lab: [place] [phone] Performing Lab: [address] [address] TSH 2.508 u[IU]/mL 0.47-5 Mar 28, 2024 06:11 PM [facility] COMPREHENSIVE METABOLIC PANEL PLASMA Specimen Type: PLASMA Comment: No hemolysis noted. Ordering Provider: REINA PANDEY Report Released Date/Time: Mar 28, 2024 03:46 PM Reporting Lab: [address] [address] Performing Lab: [address] [address] CREATININE 2.68 mg/dL H 0.6-1.1 UREA NITROGEN 38.2 mg/dL H 9.0-25.0 GLUCOSE 78 mg/dL 72-99 SODIUM 144 meq/L 136-145 POTASSIUM 3.8 meq/L 3.5-5 CHLORIDE 106 meq/L 98-107 CARBON DIOXIDE 24 meq/L 22-31 CALCIUM 11.1 mg/dL H 8.4-10.4 PROTEIN 7.6 g/dL 6-8.6 ALBUMIN 4.0 g/dL 3.4-5 TOTAL BILIRUBIN 0.4 mg/dL 0.2-1.2 ALKALINE PHOSPHATASE 68 U/L 40-150 AST/SGOT 19 U/L 5-34 ALT/SGPT 10 U/L 8-40 EGFR (CKD-EPI 2020) 18.8 >60 Mar 28, 2024 06:11 PM [facility] CBC BLOOD Specimen Type: BLOOD No comment entered. Ordering Provider: REINA PANDEY Report Released Date/Time: Mar 28, 2024 03:46 PM Reporting Lab: [address] [address] Performing Lab: [place] [address] [facility] [address] WBC 9.0 10*3/uL 3.6-11.2 RBC 3.31 10*6/uL L 3.60-5.00 HGB 10.0 g/dL L 11.0-14.9 HCT 32.4 L 32.6-43.4 MCV 97.9 fL 80.0-100.0 MCH 30.2 pg 27.0-34.0 MCHC 30.9 g/dL L 33.0-36.0 PLT 219 10*3/uL 150-400 MPV 12.1 fL H 7.5-11.2 RDW 14.4 11.8-15.1 LYMPHOCYTES, AUTO % 26 MONOCYTES, AUTO % 10 NEUTROPHILS, AUTO % 62 EOSINOPHILS, AUTO % 3 BASOPHILS, AUTO % 0 LYMPHOCYTES, ABSOLUTE 2.30 10*3/uL 0.77- 4.50 MONOCYTES, ABSOLUTE 0.86 10*3/uL H 0.19-0. 80 NEUTROPHILS, ABSOLUTE 5.51 10*3/uL 2.10- 8.00 EOSINOPHILS, ABSOLUTE 0.25 10*3/uL 0.00- 0.60 BASOPHILS, ABSOLUTE 0.02 10*3/uL 0.00-0. 20 Mar 28, 2024 06:11 PM [facility] HGA1C BLOOD Specimen Type: BLOO D No comment entered. Ordering Provider: REINA PANDEY Report Released Date/Time: Mar 28, 2024 03:46 PM Reporting Lab: [address] [address] Performing Lab: [place] [address] [facility] [address] HGA1C 5.5 4.0-6.0 Mar 28, 2024 04:18 PM [facility] MRSA SURVL NARES DNA NARES Specimen Type: LORA ES Comment: Qualitative real-time PCR test for the rapid detection of methicillin-resistant Staphylococcus aureus (MRSA) DNA from nasal swabs. A negative result does not preclude infection with the agent(s) tested and should not be used as the sole basis for treatment or other patient management decisions. A positive test does not necessarily indicate the presence of viable organisms, following bacterial culture to recover the organism for further characterization and susceptibility testing. All results must be combined with clinical observations, patient history, and epidemiological information for final interpretation. Ordering Provider: JOSE ELIAS MAYO Report Released Date/Time: Mar 28, 2024 04:15 PM Reporting Lab: [address] [address] Performing Lab: [address] [address] MRSA SURVL NARES DNA Negative Negative Mar 28, 2024 11:10 AM [facility] B12 SERUM Specimen Type: SERUM No comment entered. Ordering Provider: CLEMENT PAN Report Released Date/Time: Mar 28, 2024 11:15 AM Reporting Lab: [address] [address] Performing Lab: [address] [address] B12 247 pg/mL 213-816 Mar 28, 2024 11:10 AM [facility] BASIC METABOLIC PANEL PLASMA Specimen Type: PL ASMA Comment: No hemolysis noted. Ordering Provider: CLEMENT PAN Report Released Date/Time: Mar 28, 2024 11:15 AM Reporting Lab: [address] [address] Performing Lab: [address] [address] CREATININE 2.90 mg/dL H 0.6-1.1 UREA NITROGEN 40.6 mg/dL H 9.0-25.0 GLUCOSE 99 mg/dL 72-99 SODIUM 140 meq/L 136-145 POTASSIUM 4.2 meq/L 3.5-5 CHLORIDE 104 meq/L 98-107 CARBON DIOXIDE 22 meq/L 22-31 CALCIUM 11.3 mg/dL H 8.4-10.4 EGFR (CKD-EPI 2020) 17.1 >60 Mar 28, 2024 11:10 AM [facility] CBC BLOOD Specimen Type: BLOOD No comment entered. Ordering Provider: CLEMENT PAN Report Released Date/Time: Mar 28, 2024 11:15 AM Reporting Lab: [facility] [address] [facility] [address] Performing Lab: [place] [id number] [facility] [address] WBC 9.9 10*3/uL 3.6-11.2 RBC 3.34 10*6/uL L 3.60-5.00 HGB 10.0 g/dL L 11.0-14.9 HCT 32.8 32.6-43.4 MCV 98.2 fL 80.0-100.0 MCH 29.9 pg 27.0-34.0 MCHC 30.5 g/dL L 33.0-36.0 PLT 220 10*3/uL 150-400 MPV 11.6 fL H 7.5-11.2 RDW 14.4 11.8-15.1 NEUTROPHILS 65.4 MONOCYTES 5.5 EOSINOPHILS 2.7 PAPPENHEIMER BODIES 0 LYMPHOCYTES 20.9 ATYPICAL LYMPHOCYTES 5.5 PLT EST-CV ADEQUATE ADEQUATE NORMRBC Yes EO#-MDIFF 0.27 10*3/uL 0.00-0.60 MONO#-MDIFF 0.54 10*3/uL 0.19-0.80 LYMPH#-MDIFF 2.61 10*3/uL 0.77-4.50 NEUT#-MDIFF 6.47 10*3/uL 2.10-8.00 Mar 25, 2024 11:45 AM [facility] MAGNESIUM PLASMA Specimen Type: PLASM A Comment: No hemolysis noted. Ordering Provider: MAN ARREDONDO Report Released Date/Time: Mar 25, 2024 11:30 AM Reporting Lab: [facility] [address] [facility] [address] Performing Lab: [facility] [address] [facility] [address] MAGNESIUM 1.8 mg/dL 1.6-2.6 Mar 25, 2024 11:45 AM [facility] COMPREHENSIVE METABOLIC PANEL PLASMA Specimen Type: PLASMA Comment: No hemolysis noted. Ordering Provider: MAN ARREDONDO Report Released Date/Time: Mar 25, 2024 11:30 AM Reporting Lab: [facility] [address] [facility] [address] Performing Lab: [address] [address] CREATININE 2.62 mg/dL H 0.6-1.1 UREA NITROGEN 31.5 mg/dL H 9.0-25.0 GLUCOSE 89 mg/dL 72-99 SODIUM 140 meq/L 136-145 POTASSIUM 3.9 meq/L 3.5-5 CHLORIDE 100 meq/L 98-107 CARBON DIOXIDE 25 meq/L 22-31 CALCIUM 10.3 mg/dL 8.4-10.4 PROTEIN 7.7 g/dL 6-8.6 ALBUMIN 4.0 g/dL 3.4-5 TOTAL BILIRUBIN 0.4 mg/dL 0.2-1.2 ALKALINE PHOSPHATASE 64 U/L 40-150 AST/SGOT 20 U/L 5-34 ALT/SGPT 7 U/L L 8-40 EGFR (CKD-EPI 2020) 19.3 >60 Mar 25, 2024 11:45 AM [facility] CBC BLOOD Specimen Type: BLOOD No comment entered. Ordering Provider: MAN ARREDONDO Report Released Date/Time: Mar 25, 2024 11:30 AM Reporting Lab: [facility] [address] [facility] [address] Performing Lab: [address] [address] WBC 9.9 10*3/uL 3.6-11.2 RBC 3.36 10*6/uL L 3.60-5.00 HGB 10.1 g/dL L 11.0-14.9 HCT 32.6 32.6-43.4 MCV 97.0 fL 80.0-100.0 MCH 30.1 pg 27.0-34.0 MCHC 31.0 g/dL L 33.0-36.0 PLT 283 10*3/uL 150-400 MPV 12.1 fL H 7.5-11.2 RDW 14.4 11.8-15.1 LYMPHOCYTES, AUTO % 28 MONOCYTES, AUTO % 10 NEUTROPHILS, AUTO % 59 EOSINOPHILS, AUTO % 2 BASOPHILS, AUTO % 0 LYMPHOCYTES, ABSOLUTE 2.80 10*3/uL 0.77- 4.50 MONOCYTES, ABSOLUTE 0.97 10*3/uL H 0.19-0. 80 NEUTROPHILS, ABSOLUTE 5.84 10*3/uL 2.10- 8.00 EOSINOPHILS, ABSOLUTE 0.15 10*3/uL 0.00- 0.60 BASOPHILS, ABSOLUTE 0.03 10*3/uL 0.00-0. 20 Vital Signs: All taken on the encounter date This section contains inpatient and outpatient Vital Signs collected on the date of the Encounter. Date/Time Temperature Pulse Blood Pressure Respiratory Rate SP02 Pain Height Weight Body Mass Index Source Mar 28, 2024 08:57 PM 0 [facility] Mar 28, 2024 08:20 PM 97.9 72 147/79 18 96 0 [facility] Mar 28, 2024 06:14 PM 3 [facility] Mar 28, 2024 06:03 PM 3 [facility] Mar 28, 2024 04:41 PM 97.7 69 164/92 18 96 3 [facility] Social History: Smoking Status (Most current) and Tobacco Use (All prior to encounter date) This section includes the most current, and the historical, smoking and tobacco- related health factors from the AL facility where the Encounter took place. Current Smoking Status This section includes the most current smoking, or tobacco-related health factor, from the AL facility where the Encounter took place. Date/Time Current Smoking Status Comment Abbie castillo Mar 28, 2024 12:54 PM ORYX ADMIT TOBACCO SCREEN REFUSED [facility] Tobacco Use History This section includes a history of the smoking, or tobacco-related health factors, that were collected on or before the date of the Encounter. The data comes from the AL facility where the Encounter took place. Date/Time Smoking Status/Tobacco Use Comment F acility Sep 24, 2023 01:20 PM VA-TOBACCO FORMER USER [facility] Sep 24, 2023 01:20 PM VA-TOBACCO QUIT 15 YRS OR MORE [facility] Apr 06, 2021 07:54 PM ORYX ADMIT TOBACCO SCREEN NO [facility] Jul 26, 2020 09:33 AM VA-TOBACCO FORMER USER [facility] Jul 26, 2020 09:33 AM VA-TOBACCO QUIT 15 YRS OR MORE [facility] Aug 13, 2019 05:31 PM ORYX ADMIT TOBACCO SCREEN NO [facility] Nov 26, 2008 11:49 AM QUIT TOBACCO >7 YEARS AGO [facility] Advance Directives: All historical and current Section Date Range: From patient's date of to the date document was created. This section includes ALL of a patient's completed or amended [place] Advance and Rescinded Directives. The entries below indicate that a directive exists for the patient, but an actual copy is not included with this document. The data comes from all AL facilities. Date Advance Directives Provider Source Nov 18, 2021 STATE-AUTHORIZED POR TABLE ORDERS ELIDIA NOONAN [facility] Radiology Reports: +/- 30 days of the [...] the Encounter. The data comes from all [place] treatment facilities. Date/Time Radiology Report Provider Source Apr 14, 2024 01:58 PM US RENAL COMPLETE: JOVANA TRINIDAD BIRDIE [id number] -[id number] F Exm Date: APR 14, 2024@13:58 Req Phys: MAN ARREDONDO Pat Loc: [facility] PACT 2 PCP (Req'g Lo Img Loc: [facility] Service: Unknown [facility], [address] [place] [address] (Case [id number] COMPLETE) US RENAL COMPLETE (US Detailed) CPT:60094 Reason for Study: worsening kidney funcion Clinical History: Report Status: Verified Date Reported: APR 14, 2024 Date Verified: APR 14, 2024 Professional Benefits Sales Consultant E-Sig:/ES/MARYANN HOPKINS Report: Case [id number]. US RENAL COMPLETE. TECHNIQUE: Realtime ultrasound examination [...] renal disease. Report dictated by Gera Yee (executive vice president of sales) I, Maryann Hopkins, have reviewed the images and report and concur with these findings. Primary Interpreting Staff: MARYANN HOPKINS MD (Professional Benefits Sales Consultant) Primary Interpreting Resident: GERA YEE MD /MARYANN FLOREZ [facility] Mar 28, 2024 02:15 PM MRI SPINE THORACIC W/O CONT: JOVANA TRINIDAD BIRDIE [id number] -[id number] F Exm Date: MAR 28, 2024@14:15 Req Phys: CLEMENT PAN Pat Loc: 6-N SURG-[facility]/03-28-2024@15:52 Img Loc: [facility] Service: Unknown [facility] [address] (Case [id number] COMPLETE) MRI SPINE THORACIC W/O CONT (MRI Detailed) CPT:78417 Reason for Study: spastic gait, rule out myelopathy Clinical History: Has this patient had a plain film x-ray of this associated spine within the past 6 months? No If the above answer is no, please order an x-ray of the associated spine along with the MRI. These studies will be performed during the same patient encounter. Date of plain film x-ray performed? Mar Responsible Attending: clement pan Attending Contact Number: [id number] Resident Contact Number: Does your patient have an implanted device [...] Renal Failure, Chronic or Acute Renal Disease? No If ordering a contrasted enhanced MRI, you [...] procedure, or to order an alternative procedure. ------- In the event this patient needs referred to [facility]: Does this patient have mobility issues that will require additional assistance at the imaging center? No If yes, please provide specifics: Does this patient require an open bore MRI due to claustrophobia? No Has a close bore MRI with oral sedation been tried? No This order requests: Without Report Status: Verified Date Reported: MAR 28, 2024 Date Verified: MAR 28, 2024 Professional Benefits Sales Consultant E-Sig:/ES/Alexis Gallo MD. FACR. Report: History: spastic gait, rule out myelopathy. Comparison: No previous pertinent examination is available. Technique: Multiplanar multisequence imaging of the thoracic spine according to center protocol without contrast. Findings: No cord tethering, syrinx or malignant appearing focal marrow replacing process is seen. No significant ventral or dorsal extradural deformities are seen on the thecal sac. Axial slices through the thoracic spine demonstrate normal cord size and signal. No disc protrusions or central canal stenosis. On lower slices, multiple fluid signals are seen about the kidneys probably representing simple cysts and, where 1 low signal intensity lesion in the left kidney probably represents a cyst with hemorrhage. Cystic kidneys are only partially evaluated, formal evaluation of the kidneys is suggested. Impression: No abnormalities to account for spastic gait. Multiple probable renal cysts partially evaluated. Primary Interpreting Staff: Alexis Gallo MD. FACR, Neuroradiologist (Professional Benefits Sales Consultant) /[facility]EX[facility] CORBETT [facility] Mar 28, 2024 02:12 PM MRI SPINE CERVICAL W/O CONT: AMOSJOVANA BIRDIE [id number] -1955 F Exm Date: MAR 28, 2024@14:12 Req Phys: CLEMENT PAN Pat Loc: 6-N SURG-[facility]/03-28-2024@15:46 Img Loc: [facility] Service: [address] [address] (Case [id number] COMPLETE) MRI SPINE CERVICAL W/O CONT (MRI Detailed) CPT:20748 Reason for Study: spastic gait, rule out myelopathy Clinical History: Has this patient had a plain film x-ray of this associated spine within the past 6 months? No If the above answer is no, please order an x-ray of the associated spine along with the MRI. These studies will be performed during the same patient encounter. Date of plain film x-ray performed? Mar Does your patient have an implanted device [...] Renal Failure, Chronic or Acute Renal Disease? No If ordering a contrasted enhanced MRI, you [...] procedure, or to order an alternative procedure. ------- In the event this patient needs referred to Community Care: Does this patient have mobility issues that will require additional assistance at the imaging center? No If yes, please provide specifics: Does this patient require an open bore MRI due to claustrophobia? No Has a close bore MRI with oral sedation been tried? No This order requests: Without Report Status: Verified Date Reported: MAR 28, 2024 Date Verified: MAR 28, 2024 Professional Benefits Sales Consultant E-Sig:/ES/Alexis Gallo MD. FACR. Report: History: spastic gait, rule out myelopathy. Comparison: No previous pertinent examination is available. Technique: Multiplanar multisequence imaging of the cervical spine according to center protocol without contrast. Findings: No Chiari malformation, cervical syrinx, malignant appearing focal marrow replacing process or suspicious marrow edema is seen. Mild ventral extradural deformity on the thecal sac is visible at C3-4. No significant dorsal extradural deformity on the thecal sac is seen. Spinal cord size and signal is within normal limits. Axial slices were obtained from C2-T1. Segmental analysis is as follows: C2-3: No disc protrusion or extrusion, neural foramen narrowing or spinal canal stenosis is seen. C3-4: Broad-based right-sided disc protrusion deforms the thecal sac but not the spinal cord. No nerve root displacement. No foraminal stenosis or central canal stenosis. C4-5: No disc protrusion or extrusion neural foramen narrowing or spinal canal stenosis is seen. C5-6: No disc protrusion or extrusion neural foramen narrowing or spinal canal stenosis is seen. C6-7: No disc protrusion or extrusion neural foramen narrowing or spinal canal stenosis is seen. Impression: Broad-based right-sided disc protrusion at C3-4. Primary Interpreting Staff: Alexis Gallo MD. FACR, Neuroradiologist (Professional Benefits Sales Consultant) /[facility] COR[facility]ETT [facility] Mar 28, 2024 02:11 PM MRI BRAIN W/O CONT : JOVANA TRINIDAD [id number] -1955 F Exm Date: MAR 28, 2024@14:11 Req Phys: CLEMENT PAN Loc: [facility]EMERG[facility]Y [facility]PT 2ND SHIFT (R Img Loc: [facility] Service: [facility], [facility] [address] [place] [address] (Case [id number] COMPLETE) MRI BRAIN W/O CONT (MRI Detailed) CPT:34829 Reason for Study: cognitive decline ? vascular dementia Clinical History: Responsible Attending: clement pan Attending Contact Number: [phone] Resident Contact Number: Does your patient have an implanted device [...] Renal Failure, Chronic or Acute Renal Disease? No If ordering a contrasted enhanced MRI, you [...] procedure, or to order an alternative procedure. In the event this patient needs referred to Community Care: Does this patient have mobility issues that will require additional assistance at the imaging center? No If yes, please provide specifics: Does this patient require an open bore MRI due to claustrophobia? No Has a close bore MRI with oral sedation been tried? No This order requests: Without Report Status: Verified Date Reported: MAR 28, 2024 Date Verified: MAR 28, 2024 Professional Benefits Sales Consultant E-Sig:/ES/Alexis Gallo MD. FACR. Report: History: cognitive decline ? vascular dementia. Comparison: MR angiography-03/02/2020. Technique: Multiplanar multisequence imaging of the brain according to center protocol without contrast. Findings: Supratentorial and infratentorial volume loss is present. Confluent T1 and T2 prolongation is observed in the periventricular white matter of the supratentorial compartment primarily at the level of the frontal and parietal white matter. No accompanying diffusion restriction is seen to suggest acute ischemia. Hemosiderin deposition is noted primarily in the frontal lobes bilaterally with additional T2 shortening in the thalamus on both sides. There may be additional hemosiderin deposition in the peripheral cerebellar bilaterally. While changes in the supratentorial white matter can certainly be due to chronic microvascular ischemic disease. The presence of possible hemosiderin suggests possible amyloid deposition. Signal void is visible in the carotid and basilar arteries. For further evaluation, follow-up head CT may be useful. Impression: Diffuse signal change in the frontal and parietal lobes with potential hemosiderin deposition. T2 shortening is also seen in the thalamus bilaterally. Primary Interpreting Staff: Alexis Gallo MD. FACR, Neuroradiologist (Professional Benefits Sales Consultant) /[facility] COR[facility]ETT [facility] Mar 22, 2024 05:56 PM CHEST PORTABLE: JOVANA TRINIDAD BIRDIE [id number] -1955 F Exm Date: MAR 22, 2024@17:56 Req Phys: MAN ARREDONDO Pat Loc: [facility]ST CLR PACT 2 PCP (Req'g Lo Img Loc: OUTSIDE [facility] Service: Unknown Screen: Patient is unable to answer or is unsure Screen Comment: OUTSIDE STUDY (Case [id number] COMPLETE) CHEST PORTABLE (RAD Detailed) CPT:69230 Reason for Study: Exam imported from outside Clinical History: Original Data for Imported Study Patient Name: JOVANA TRINIDAD Date: 1955 Sex: F Study Date: 03/22/24 Study Time: 05:56:26 Study Description: XR chest 1V portable Referring Physician: ERICA ALATORRE Series 1: 1 SR file, description: MARBELLA Basic Text SR for HL7 Radiological Report Series 2: 1 CR file, description: XR chest 1V portable Report Status: Electronically Filed Date Reported: APR 14, 2024 Report: Electronically generated report for outside study. Impression: Electronically generated report for outside study. VERIFIED BY: / *ELECTRONICALLY FILED* [facility] Encounter Notes: All associated encounter notes This section contains the clinical notes associated to the Encounter. Date/Time Encounter Note(s) Provider Source Mar 28, 2024 12:45 PM NEUROLOGY CONSULT: LOCAL TITLE: NEUROLOGY OUTPATIENT CONSULT ST STANDARD TITLE: NEUROLOGY CONSULT DATE OF NOTE: MAR 28, 2024@12:45 ENTRY DATE: MAR 28, 2024@12:45:42 AUTHOR: JESÚS SOTO EXP COSIGNER: REAGAN ANNA URGENCY: STATUS: COMPLETED NEUROLOGY OUTPATIENT CONSULT ST Has ADDENDA NEUROLOGY CONSULT NOTE MAR 28, 2024 Reason for consult: falls and balance issues HPI: 68 year old WHITE FEMALE with PMH as below presented to ED for the evaluation of falls and balance issue. According to patient her symptoms has been going on for a while, reports havig a fall around day in dec and her most recent fall was yesterday. Patient mentioned that daily she feels like falling but able to catch herself. She lives in a shelter facility. She denies having any dizziness or vertigo prior to falls. She mentions that she falls forwards without any warning signs. Patient mentioned that she has been using walker as she feel unsteady on her feet. On ROS she endorses dry mouth, balance issues, chronic back pain, urinary incontinence when she wakes up in the morning, intolerance to cold, unusal faitgue, slurred speech which she attributes to dry mouth, and falls. She also endorses pounding sensation in the chest. She denies any headaches, nausea, vomiting, dizziness, vertigo, bowl incontinence, neck pain, dry eyes, anorexia, weakness, numbness, tingling, SOB, chest pain, or any other neurological issue except what is mentioned above. As per [facility] review, She reported on clinic visit that she was walking fine last year. her friends started pointing to her that she is walking funny as she said. she received a walker, and she does not know exactly when. She reported having PT who recommended the walker. she reported she was recently discharged from [facility] for UTI. she is on transplant list for her kidneys. On arrival to ED her BP was 140/82 and pulse was 61. CBC was unremarkable. No neuroimaging avaliuable at this time. 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 (SNOMED CT 789367253459438) 6) Depressive Disorder NOS * (ICD-9-CM 311./300.4) 7) Gynecologic Exam 8) OA - Osteoarthritis (SNOMED CT 851970154) 9) Skin tag (SNOMED CT 856641459) 10) Nonvenomous insect bite (SNOMED CT 476806152) 11) Foot callus (SNOMED CT 581927753) 12) Verruca plantaris (SNOMED CT 83890326) 13) Edema (SNOMED CT 834144717) 14) Cramp (SNOMED CT 29672561) 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 SOCIAL HISTORY: she quit smoking when she was 33, no etoh and no drug use. FAMILY HISTORY: Reviewed and not contributory. ALLERGIES: AMLODIPINE PHYSICAL EXAM: Temperature: 98 F [36.7 C] (03/28/2024 10:59) Blood Pressure: 140/82 (03/28/2024 12:00) Pulse: 61 (03/28/2024 12:00) Respirations: 15 (03/28/2024 12:00) Height: 64 in [162.6 cm] (12/05/2023 10:27) Weight: 128.2 lb [58.15 kg] (03/25/2024 10:39) Neurologic: Mental Status: Alert and oriented x 3, answers questions appropriately Speech clear, fluent and coherent, follows complex commands Cranial Nerves: no RAPD, Pupils ERL, EOMI, no ptosis, nystagmus or diplopia Facial sensation intact in all three divisions bilaterally Face symmetric, hearing intact bilaterally, palate symmetric Uvula and tongue midline, shoulder shrug intact bilaterally Motor: Abnormal movements: none Tone: normal Bulk: normal Power: Delt Tri Bi FDS/FDP Interossei APB RUE ltd 08/18 08/18 08/18 08/18 08/18 LUE 08/18 08/18 08/18 08/18 08/18 08/18 IP Hip Abd/Add Quad TA Ham EHL RLE 08/18 08/18; 08/18 08/18 08/18 08/18 08/18 LLE 08/18 08/18; 08/18 08/18 08/18 08/18 5 DTR: Bi Tri BR Pat Ach Toes R 4 3 4 4 3 Down L 4 3 4 4 3 Down Comment: noted to have hoffmen sign positive in both UE and 2-3 beat clonus in both LE. Sensory: Intact LT and proprioception bilaterally Coordination: FNF intact bilaterally Gait/Balance: deferred due to risk of fall - was seen using walker. LAB RESULTS: Complete Blood Count WBC: 9.9 10*3/uL (03/28/24 11:10) RBC: 3.34 10*6/uL L (03/28/24 11:10) HGB: HGB 10.0 L g/dL 03/28/2024 11:10 HCT: 32.8 % (03/28/24 11:10) PLT: PLT 220 10*3/uL 03/28/2024 11:10 Sed Rate ESR: No SED RAT (STL-PB) data found Coagulation parameters PT: 11.0 sec (08/15/23 15:42) INR: 1.0 INR (08/15/23 15:42) PTT: APTT 29.7 sec 08/15/2023 15:42 Comprehensive Metabolic Panel SODIUM 140 mEq/L 03/28/2024 11:10 POTASSIUM 4.2 mEq/L 03/28/2024 11:10 CHLORIDE 104 mEq/L 03/28/2024 11:10 UREA NITROGEN 40.6 H mg/dL 03/28/2024 11:10 CREATININE 2.90 H mg/dL 03/28/2024 11:10 CALCIUM 11.3 H mg/dL 03/28/2024 11:10 PROTEIN 7.7 g/dL 03/25/2024 11:45 ALBUMIN 4.0 g/dL 03/25/2024 11:45 ALKALINE PHOSPHATASE 64 U/L 03/25/2024 11:45 ALT/SGPT 7 L U/L 03/25/2024 11:45 AST/SGOT 20 U/L 03/25/2024 11:45 TOTAL BILIRUBIN 0.4 mg/dL 03/25/2024 11:45 CARBON DIOXIDE 22 mEq/L 03/28/2024 11:10 GLUCOSE 99 mg/dL 03/28/2024 11:10 EGFR (CKD-EPI 2020) 17.1 03/28/2024 11:10 IMAGING/OTHER DIAGNOSTIC STUDIES: none IMPRESSION: 68 year old WHITE FEMALE with PMH as below presented to ED for the evaluation of falls and balance issue. Based on the clinical presentation, exam findings and chart review, her symptoms can be related to myelopathy vs neoplastoic etiology vs metabolic. Patient requires further work up and evaluation. Recommendations: - recommend inpatient admission of medicine team for further work up and management. - recommend obtaining the MRI brain wwo contrast, MRI cervical and thoracic spine wwo contrast - recommend using renal friendly contrast due to history of CKD. - recommend fall precautions. - recommend q4H neurochecks and viatls. - recommend telemetry and consider evaluation for cardiovascular causes of her palpitations. - recommend supplemetation with vit B12 and please obtain folate and methylmalonic acid levels. - Please obtain HbA1c and TSH levels. - recommend eval and treat by PT/OT. - Neurology will continue to follow. The assessment and recommendations are discussed with and approved by attending physician Dr Anna. Signed: Jesús Soto MD PGY-4, Neurology resident [facility]. /es/ JESÚS SOTO MD NEUROLOGY RESIDENT Signed: 03/28/2024 12:53 /ronald ANNA MD NEUROLOGY STAFF PHYSICIAN Cosigned: 03/28/2024 19:04 03/28/2024 ADDENDUM STATUS: COMPLETED I conducted a detailed evaluation and discussion of the patient with the resident, reviewed medical records and images and made the plan in collaboration with the resident. Recommend MRI brain, MRI cervical and thoracic spine with and without contrast given signs and symptoms of myelopathy. Will follow-up on results. Please see the resident's note for details. /ronald ANNA MD NEUROLOGY STAFF PHYSICIAN Signed: 03/28/2024 19:05 JESÚS SOTO [facility]
--- OUTSIDE RECORDS SUMMARY | 2024-11-30 14:50 | XMS_ITS | Encounter Summary ---
Author Name [facility] [place] [facility] [place] Address [address] [place] [address] Care Team Providers Care Welfare Manager Name Role Phone MARIA ELENAMAN Primary Care Provider Unavailabl e Insurance Providers: [...] PRESCRIPT ION NONE Mar 16, 2006 NONE [id number] [place] PATIENT [facility] PREFERRED PROVIDER ORGANIZAT ION (PPO) DEPAR TMENT OF DEFEN S Mar 16, 2006 [id number] [place] PATIENT MEDICARE (WNR) MEDICARE (M) PART A Nov 14, 2020 PART A [id number] [place] PATIENT MEDICARE (WNR) MEDICARE (M) PART B Nov 14, 2020 PART B [id number] AMOSHI TAYLOR PATIENT Selected Encounter This section includes the information on record at [place] for the Encounter. 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 Mar 27, 2024 10:55 AM SECONDARY Dem in other dis classd elswhr, moderate, with agitation [facility] Mar 27, 2024 10:55 AM SECONDARY Unsteadiness on feet [facility] Mar 27, 2024 10:55 AM SECONDARY Weakness [facility] Plan of Treatment: Future Appointments (+ 6 months) and Future Tests (+/- 45 days) The Plan of Treatment section includes future care activities for the patient from all [place] [facility] [place]. This section includes future appointments and future orders which are active, pending or scheduled. Future Appointments This section includes appointments that were scheduled to occur 6 months from the date of the Encounter, up to a maximum of 20 appointments. The data comes from all [place] treatment facilities. Appointment Date/Time Appointment Type Appointme nt Facility Name Mar 28, 2024 10:49 AM AMBULATORY - MEDICINE [facility] Apr 02, 2024 10:00 AM AMBULATORY - MEDICINE [facility] Apr 14, 2024 02:30 PM AMBULATORY - MEDICINE [facility] Apr 30, 2024 02:00 PM AMBULATORY - NONE [facility] May 06, 2024 10:30 AM AMBULATORY - NONE [facility] May 30, 2024 10:00 AM AMBULATORY - MEDICINE [facility] May 30, 2024 01:30 PM [facility] . [facility] Jun 13, 2024 09:00 AM AMBULATORY - SURGERY [facility] Jun 20, 2024 11:00 AM AMBULATORY - SURGERY [facility] Jul 09, 2024 01:00 PM AMBULATORY - SURGERY . [facility] Jul 18, 2024 11:40 AM AMBULATORY - MEDICINE [facility] Jul 29, 2024 12:00 PM AMBULATORY - NONE . [facility] Aug 11, 2024 12:20 PM AMBULATORY - MEDICINE [facility] September 09, 2024 12:00 PM AMBULATORY - NONE [facility] Active, Pending, and Scheduled Orders This section includes a listing of several types of active, pending, and scheduled orders, including clinic medications orders, diagnostic test orders, procedure orders and consult orders; where the start date of the order is 45 days before the date of the Encounter or 45 days after the date of theEncounter. The data comes from all [facility] facilities. Test Date/Time Test Type Test Details Facility Name Mar 25, 2024 12:00 AM Laboratory - Chemi stry Order URINALYSIS (STL-PB) URINE [facility] Mar 25, 2024 12:00 AM Laboratory - Microbiology Order C&S URINE URINE,CLEAN CATCH [facility] Mar 28, 2024 11:15 AM Laboratory - Chemi stry Order COPPER BLOOD IN AM [facility] Lab Results: +/- 30 days of the encounter This section includes the Chemistry and Hematology Lab Results on record with [place] for the patient. Radiology Reports and Pathology Reports are provided separately, in subsequent sections. Lab Results This section contains the Chemistry/Hematology Results that were resulted 30 days before or 30 daysafter the date of the Encounter. Date/Time Source Result Type Result - Unit Interpretation Reference Range Specimen Type Comment Mar 30, 2024 07:44 AM [facility] BASIC METABOLIC PANEL PLASMA Specimen Type: PLASMA Comment: No hemolysis noted. Ordering Provider: REINA PANDEY Report Released Date/Time: Mar 28, 2024 03:46 PM Reporting Lab: [address] [address] Performing Lab: [address] [address] CREATININE 2.19 mg/dL H 0.6-1.1 UREA NITROGEN 30.2 mg/dL H 9.0-25.0 GLUCOSE 123 mg/dL H 72-99 SODIUM 144 meq/L 136-145 POTASSIUM 3.6 meq/L 3.5-5 CHLORIDE 106 meq/L 98-107 CARBON DIOXIDE 24 meq/L 22-31 CALCIUM 10.8 mg/dL H 8.4-10.4 EGFR (CKD-EPI 2020) 24.0 >60 Mar 30, 2024 07:44 AM [facility] CBC BLOOD Specimen Type: BLOOD No comment entered. Ordering Provider: REINA PANDEY Report Released Date/Time: Mar 28, 2024 03:46 PM Reporting Lab: [address] [address] Performing Lab: [address] [address] WBC 6.7 10*3/uL 3.6-11.2 RBC 3.35 10*6/uL [...] BASOPHILS, ABSOLUTE 0.01 10*3/uL 0.00-0. 20 Mar 29, 2024 07:59 AM [facility] CORTISOL(STL Eff 01/21) PLASMA Specimen Type: PLASMA Comment: No hemolysis noted. Ordering Provider: REINA PANDEY Report Released Date/Time: Mar 28, 2024 05:00 PM Reporting Lab: [address] [address] Performing Lab: [place] [phone] CORTISOL(STL Eff 01/21) 14.700 ug/dL Mar 29, 2024 07:59 AM [facility] BASIC METABOLIC PANEL PLASMA Specimen Type: PL ASMA Comment: No hemolysis noted. Ordering Provider: REINA PANDEY Report Released Date/Time: Mar 28, 2024 03:46 PM Reporting Lab: [address] [address] Performing Lab: [address] [address] CREATININE 2.58 mg/dL H 0.6-1.1 UREA NITROGEN 39.0 mg/dL H 9.0-25.0 GLUCOSE 137 mg/dL H 72-99 SODIUM 145 meq/L 136-145 POTASSIUM 3.8 meq/L 3.5-5 CHLORIDE 106 meq/L 98-107 CARBON DIOXIDE 24 meq/L 22-31 CALCIUM 10.9 mg/dL H 8.4-10.4 EGFR (CKD-EPI 2020) 19.7 >60 Mar 29, 2024 07:59 AM [facility] CBC BLOOD Specimen Type: BLOOD No comment entered. Ordering Provider: REINA PANDEY Report Released Date/Time: Mar 28, 2024 03:46 PM Reporting Lab: [address] [address] Performing Lab: [address] [address] WBC 5.9 10*3/uL 3.6-11.2 RBC 3.27 10*6/uL [...] 0.00-0. 20 Mar 28, 2024 07:20 PM [facility] URINALYSIS W/ CX REFLEX (STL-PB) URINE Specim en Type: URINE No comment entered. Ordering Provider: REINA PANDEY Report Released Date/Time: Mar 28, 2024 02:27 PM Reporting Lab: [address] [address] Performing Lab: [address] [address] URINE COLOR Colorless Yellow U.BILIRUBIN Negative mg/dL Negative U.PH 7.5 5.0-8.0 APPEARANCE Clear Clear U.NITRITE Negative mg/dL Negative URN.GLUCOSE Normal mg/dL Negative URN.PROTEIN Negative mg/dL URN.UROBILINOGEN Normal mg/dL Normal URN.BLOOD Negative mg/dL Negative-Trace URN.KETONES Negative mg/dL Negative-Trac e URN.LEUK.EST. Negative mg/dL Negative-Tr kiarra URN.SPECIFIC GRAVITY 1.008 Mar 28, 2024 06:11 PM [facility] METHYLMALONIC ACID SERUM Specimen Type: SERUM Comment: [...] neural tube defects and intrauterine growth restriction. [facility] utilized Multi-Modal Decomposition (MMD) analysis to establish first and second trimester- specific MMA reference intervals in , as given below: MMA, First trimester (<13 wks gestation): 58-167 nmol/L MMA, Second trimester (13-23 wks gestation): 63-241 nmol/L This test was developed and its analytical performance characteristics have been determined by [facility]. It has not been cleared or approved by the FDA. This assay has been validated pursuant to the CLIA regulations and is used for clinical purposes. Test Performed by [facility], [facility], [address] [place] [address] Iker Simon M.D., Ph.D., Director of Laboratories , CLIA [id number] Ordering Provider: REINA PANDEY Report Released Date/Time: Mar 28, 2024 03:46 PM Reporting Lab: [facility] [address] [place] [phone] Performing Lab: [facility] [id number] [place] [address] METHYLMALONIC ACID 512 nmol/L H 69-390 Mar 28, 2024 06:11 PM [facility] B12 SERUM Specimen Type: SERUM No comment entered. Ordering Provider: REINA PANDEY Report Released Date/Time: Mar 28, 2024 03:46 PM Reporting Lab: [facility] [address] [facility] [address] Performing Lab: [address] [address] B12 287 pg/mL 213-816 Mar 28, 2024 06:11 PM [facility] FOLATE (STL-MA) SERUM Specimen Type: SERUM No comment entered. Ordering Provider: REINA PANDEY Report Released Date/Time: Mar 28, 2024 03:46 PM Reporting Lab: [facility] [address] [facility] [address] Performing Lab: [address] [address] FOLATE (STL-MA) 13.9 ng/mL 7-20 Mar 28, 2024 06:11 PM [facility] COMPREHENSIVE METABOLIC PANEL PLASMA Specimen Type: PLASMA Comment: No hemolysis noted. Ordering Provider: REINA PANDEY Report Released Date/Time: Mar 28, 2024 03:46 PM Reporting Lab: [address] [address] Performing Lab: [address] [address] CREATININE 2.68 mg/dL H 0.6-1.1 UREA NITROGEN [...] 18.8 >60 Mar 28, 2024 06:11 PM [facility] HGA1C BLOOD Specimen Type: BLOOD No comment entered. Ordering Provider: REINA PANDEY Report Released Date/Time: Mar 28, 2024 03:46 PM Reporting Lab: [facility] [address] [place] [phone] Performing Lab: [place] [address] [facility] [address] HGA1C 5.5 4.0-6.0 Mar 28, 2024 06:11 PM [facility] TSH W/ REFLEX FT4 (STL) PLASMA Specimen Type: PLASMA No comment entered. Ordering Provider: REINA PANDEY Report Released Date/Time: Mar 28, 2024 03:46 PM Reporting Lab: [address] [address] Performing Lab: [address] [address] TSH 2.508 u[IU]/mL 0.47-5 Mar 28, 2024 06:11 PM [facility] CBC BLOOD Specimen Type: BLOOD No comment entered. Ordering Provider: REINA PANDEY Report Released Date/Time: Mar 28, 2024 03:46 PM Reporting Lab: [address] [address] Performing Lab: [address] [address] WBC 9.0 10*3/uL 3.6-11.2 RBC 3.31 10*6/uL [...] 0.02 10*3/uL 0.00-0. 20 Mar 28, 2024 04:18 PM [facility] MRSA SURVL NARES DNA NARES Specimen Type: [...] Mar 28, 2024 04:15 PM Reporting Lab: [address] [address] Performing Lab: [address] [address] MRSA SURVL NARES DNA Negative Negative Mar 28, 2024 11:10 AM [facility] B12 SERUM Specimen Type: SERUM No comment entered. Ordering Provider: CLEMENT PAN Report Released Date/Time: Mar 28, 2024 11:15 AM Reporting Lab: [facility] [address] [place] [phone] Performing Lab: [address] [address] B12 247 pg/mL 213-816 Mar 28, 2024 11:10 AM [facility] BASIC METABOLIC PANEL PLASMA Specimen Type: PL ASMA Comment: No hemolysis noted. Ordering Provider: CLEMENT PAN Report Released Date/Time: Mar 28, 2024 11:15 AM Reporting Lab: [address] [address] Performing Lab: [address] [address] CREATININE 2.90 mg/dL H 0.6-1.1 UREA NITROGEN 40.6 mg/dL H 9.0-25.0 GLUCOSE 99 mg/dL 72-99 SODIUM 140 meq/L 136-145 POTASSIUM 4.2 meq/L 3.5-5 CHLORIDE 104 meq/L 98-107 CARBON DIOXIDE 22 meq/L 22-31 CALCIUM 11.3 mg/dL H 8.4-10.4 EGFR (CKD-EPI 2020) 17.1 >60 Mar 28, 2024 11:10 AM [facility] CBC BLOOD Specimen Type: BLOOD No comment entered. Ordering Provider: CLEMENT PAN Report Released Date/Time: Mar 28, 2024 11:15 AM Reporting Lab: [facility] [address] [facility] [address] Performing Lab: [facility] [address] [facility] [address] WBC 9.9 10*3/uL 3.6-11.2 RBC 3.34 10*6/uL [...] 10*3/uL 2.10-8.00 Mar 25, 2024 11:45 AM [facility] MAGNESIUM PLASMA Specimen Type: PLASM A Comment: No hemolysis noted. Ordering Provider: MAN ARREDONDO Report Released Date/Time: Mar 25, 2024 11:30 AM Reporting Lab: [facility] [address] [facility] [address] Performing Lab: [facility] [address] [place] [phone] MAGNESIUM 1.8 mg/dL 1.6-2.6 Mar 25, 2024 11:45 AM [facility] CBC BLOOD Specimen Type: BLOOD No comment entered. Ordering Provider: MAN ARREDONDO Report Released Date/Time: Mar 25, 2024 11:30 AM Reporting Lab: [facility] [address] [facility] [address] Performing Lab: [facility] [address] [place] [phone] WBC 9.9 10*3/uL 3.6-11.2 RBC 3.36 10*6/uL [...] 0.60 BASOPHILS, ABSOLUTE 0.03 10*3/uL 0.00-0. 20 Mar 25, 2024 11:45 AM [facility] COMPREHENSIVE METABOLIC PANEL PLASMA Specimen Type: PLASMA Comment: No hemolysis noted. Ordering Provider: MAN ARREDONDO Report Released Date/Time: Mar 25, 2024 11:30 AM Reporting Lab: [facility] [address] [facility] [address] Performing Lab: [facility] [address] [place] [phone] CREATININE 2.62 mg/dL H 0.6-1.1 UREA NITROGEN [...] L 8-40 EGFR (CKD-EPI 2020) 19.3 >60 Social History: Smoking Status (Most current) and [...] Date/Time Current Smoking Status Comment Abbie castillo Sep 24, 2023 01:20 PM VA-TOBACCO QUIT 15 YRS OR MORE [facility] Tobacco Use History This section includes a history of the smoking, or tobacco-related health factors, that were collected on or before the date of the Encounter. The data comes from the [place] facility where the Encounter took place. Date/Time Smoking Status/Tobacco Use Comment Asuncoin castano Sep 24, 2023 01:20 PM VA-TOBACCO QUIT 15 YRS OR MORE [facility] Apr 06, 2021 07:54 PM ORYX ADMIT TOBACCO SCREEN NO [facility] Jul 26, 2020 09:33 AM VA-TOBACCO FORMER USER [facility] Jul 26, 2020 09:33 AM VA-TOBACCO QUIT 15 YRS OR MORE [facility] Aug 13, 2019 05:31 PM ORYX ADMIT TOBACCO SCREEN NO [facility] Nov 26, 2008 11:49 AM QUIT TOBACCO >7 YEARS AGO [facility] Advance Directives: All historical and current Section [...] 2021 STATE-AUTHORIZED POR TABLE ORDERS ELIDIA NOONAN [facility] Radiology Reports: +/- 30 days of the [...] PM US RENAL COMPLETE: JOVANA TRINIDAD BIRDIE [id number] -1955 F Exm Date: APR 14, 2024@13:58 Req Phys: MAN ARREDONDO Pat Loc: [facility]-ST CLR PACT 2 PCP (Req'g Lo Img Loc: [facility]-ULTRASOUND Service: Unknown [facility] [address] [place] [address] (Case [id number] COMPLETE) US RENAL COMPLETE (US Detailed) CPT:71635 Reason for Study: worsening kidney funcion Clinical History: Report Status: Verified Date Reported: APR 14, 2024 Date Verified: APR 14, 2024 Milk Inspector E-Sig:/ES/MARYANN HOPKINS Report: Case [id number]. US RENAL COMPLETE. TECHNIQUE: Realtime ultrasound examination [...] renal disease. Report dictated by Gera Yee (residential appliance repair technician) I, Maryann Hopkins, have reviewed the images and report and concur with these findings. Primary Interpreting Staff: MARYANN HOPKINS MD (Milk Inspector) Primary Interpreting Resident: GERA YEE MD /MARYANN FLOREZ [facility] Mar 28, 2024 02:15 PM MRI SPINE THORACIC W/O CONT: JOVANA TRINIDAD BIRDIE [id number] -1955 F Exm Date: MAR 28, 2024@14:15 Req Phys: CLEMENT PAN Loc: 6-N SURG-[facility]/03-28-2024@15:52 Img Loc: [facility] Service: Unknown [address] [address] (Case [id number] COMPLETE) MRI SPINE THORACIC W/O CONT (MRI Detailed) CPT:80296 Reason for Study: spastic gait, rule out [...] Responsible Attending: clement pan Attending Contact Number: [phone] Resident Contact Number: Does your patient have [...] 28, 2024 Date Verified: MAR 28, 2024 Milk Inspector E-Sig:/ES/Alexis Gallo MD. FACR. Report: History: spastic [...] Interpreting Staff: Alexis Gallo MD. FACR, Neuroradiologist (Milk Inspector) /ALEXIS CORBETT [facility] Mar 28, 2024 02:12 PM MRI SPINE CERVICAL W/O CONT: JOVANA TRINIDAD [id number] -1955 F Exm Date: MAR 28, 2024@14:12 Req Phys: CLEMENT PAN Pat Loc: 6-N SURG-[facility]/03-28-2024@15:46 Img Loc: [facility] Service: [address] [address] (Case [id number] COMPLETE) MRI SPINE CERVICAL W/O CONT (MRI Detailed) CPT:55681 Reason for Study: spastic gait, rule out [...] 28, 2024 Date Verified: MAR 28, 2024 Milk Inspector E-Sig:/ES/Alexis Gallo MD. FACR. Report: History: spastic [...] Interpreting Staff: Alexis Gallo MD. FACR, Neuroradiologist (Milk Inspector) /ALEXIS CORBETT [facility] Mar 28, 2024 02:11 PM MRI BRAIN W/O CONT : JOVANA TRINIDAD [id number] -1955 F Exm Date: MAR 28, 2024@14:11 Req Phys: CLEMENT PAN Loc: [facility]-EMERGENCY DEPT 2ND SHIFT (R Img Loc: [facility] Service: [facility], [facility] [address] [place] [address] (Case [id number] COMPLETE) MRI BRAIN W/O CONT (MRI Detailed) CPT:57479 Reason for Study: cognitive decline ? vascular dementia Clinical History: Responsible Attending: clement pan Attending Contact Number: [phone] Resident Contact Number: Does your patient have [...] 28, 2024 Date Verified: MAR 28, 2024 Milk Inspector E-Sig:/ES/Alexis Gallo MD. FACR. Report: History: cognitive [...] Interpreting Staff: Alexis Gallo MD. FACR, Neuroradiologist (Milk Inspector) /ALEXIS CORBETT [facility] Mar 22, 2024 05:56 PM CHEST PORTABLE: JOVANA TRINIDAD [id number] -1955 F Exm Date: MAR 22, 2024@17:56 Req Phys: MARIA ELENAMAN Torres Pat Loc: - CLR PACT 2 PCP (Req'pasquale Elizalde Img Loc: OUTSIDE -GENERAL RAD Service: Unknown Screen: Patient is unable to answer or is unsure Screen Comment: OUTSIDE STUDY (Case [id number] COMPLETE) CHEST PORTABLE (RAD Detailed) CPT:71273 Reason for Study: Exam imported from outside [...] outside study. VERIFIED BY: / *ELECTRONICALLY FILED* [facility] Encounter Notes: All associated encounter notes This section contains the clinical notes associated to the Encounter. Date/Time Encounter Note(s) Provider Source Mar 27, 2024 09:46 AM NEUROLOGY CONSULT: LOCAL TITLE: NEUROLOGY OUTPATIENT CONSULT [facility] STANDARD TITLE: NEUROLOGY CONSULT DATE OF NOTE: MAR 27, 2024@09:46 ENTRY DATE: MAR 27, 2024@09:46:25 AUTHOR: CORI GARZA COSIGNER: URGENCY: STATUS: COMPLETED Neurology Consult Initial Note Date of Visit: 03/27/24 13:00 JOVANA TRINIDAD is a 68 year old WHITE FEMALE CC: ataxia. Patient with impaired gait and balence wiht recurrent falls needs to see neurology , Hx of chronic renal failure and hypoparathyroids Onset of symptoms over the past 6 months. but later on in the visit she said that during COVID time, she recalls falling when turning to the side. Pt is very poor historian. no record is available. She reports she was walking fine last year. her friends started pointing to her that she is walking funny as she said. she noticed that she is tripping very easy. she felt she is not picking her feet up. she received a walker, and she does not know exactly when. She reports having PT who recommended the walker. she reports she was recently discharged from [facility] for UTI. she is confused about the reason why she is here today and she thinks she is here for her UTI. no tingling and numbness and no pain in the feet. she fell prior to the admission for UTI. she reports being confused at that time. she fell and she did not have any injuries then. no LOC. she stayed in the hospital for 6 days and she was readmitted for confusion and not talkin right and she was found to be dehydrated as she said. she was discharged on the 9 of this month. she feels her legs are weak when she starts walking. turning caused falls. she reports weakness in the arms and legs. speech is better as she said. she is on transplant list for her kidneys. she did not bring her walker today to the visit. chronic back pain. No headache, lightheadedness, dizziness, vertigo, near syncope, blackout spells, seizure, double vision, tremors, abnormal movements, tingling and numbness sensation in the upper limb(s), tingling and numbness sensation in the lower limb(s), Tingling and numbness in the face, tingling and numbness of the tongue, burning pain in the limb(s), facial pain, and no changes in hand writing. 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 ALLERGIES: AMLODIPINE MEDICATIONS: Active Outpatient Medications (including Supplies): Active Outpatient Medications Status 1) ALLOPURINOL 100MG TAB TAKE ONE TABLET BY MOUTH ONCE A ACTIVE DAY FOR GOUT. TAKE WITH PLENTY OF WATER. 2) ATENOLOL 100MG TAB TAKE ONE-HALF TABLET BY MOUTH ONCE ACTIVE A DAY (DO NOT TAKE ANTACIDS OR CALCIUM SUPPLEMENTS WITHIN 2 HRS OF TAKING THIS MEDICATION) 3) ATORVASTATIN CALCIUM 40MG TAB TAKE ONE-HALF TABLET BY ACTIVE MOUTH EVERY EVENING FOR CHOLESTEROL. REPORT ANY UNEXPLAINED MUSCLE PAIN/WEAKNESS TO PROVIDER. 4) BUDESONIDE 3MG EC CAP TAKE ONE CAPSULE BY MOUTH EVERY ACTIVE MORNING 5) CALCITRIOL 0.25MCG CAP TAKE ONE CAPSULE BY MOUTH ACTIVE THREE TIMES PER WEEK 6) CALCIUM CARB 500MG (CA 200MG) CHEW TAB CHEW AND ACTIVE SWALLOW ONE TABLET BY MOUTH THREE TIMES A DAY WITH MEALS AND CHEW AND SWALLOW ONE TABLET AT BEDTIME 7) CETIRIZINE HCL 10MG TAB TAKE ONE-HALF TABLET BY MOUTH ACTIVE ONCE A DAY FOR ALLERGY SYMPTOMS. NEW DOSE - RENAL ADJUSTED 8) FERROUS GLUCONATE 324MG TAB TAKE ONE TABLET BY MOUTH ACTIVE ONCE A DAY FOR IRON SUPPLEMENTATION. 9) LOPERAMIDE HCL 2MG CAP TAKE ONE CAPSULE BY MOUTH ACTIVE EVERY DAY NEEDED FOR DIARRHEA. 10) MELATONIN 3MG CAP/TAB TAKE TWO CAP/TAB BY MOUTH AT ACTIVE BEDTIME FOR SLEEP 11) MOXIFLOXACIN (EQV-VIGAMOX) 0.5% OPH SOLN INSTILL 1 HOLD DROP IN RIGHT EYE FOUR TIMES A DAY FOR BACTERIAL EYE INFECTION Active Non-VA Medications Status 1) Non-VA FISH OIL 1000MG (500MG DHA/EPA) CAP 1000MG BY ACTIVE MOUTH TWICE A DAY 2) Non-VA MAGNESIUM OXIDE TAB 250MG BY MOUTH TWICE A DAY ACTIVE 13 Total Medications REVIEW OF SYSTEMS: CONSTITUTIONAL: No fever. No chills. No dizziness. EYES: No pain, erythema, or discharge. No blurring of vision. ENT: No sore throat, URI symptoms. No epistaxis. No tinnitus. hearing loss is positive. CARDIOVASCULAR: No chest pain. No palpitations. No lower extremity edema. RESPIRATORY: No shortness of breath, cough, pain with respiration, pleuritic chest pain. No hemoptysis. No dyspnea. No paroxysmal nocturnal dyspnea. GASTROINTESTINAL: Normal appetite. No nausea, vomiting, diarrhea. No pain. No bloating. No melena. GENITOURINARY: per HPI MUSCULOSKELETAL: hands arthritis, chronic back pain INTEGUMENTARY: No swelling. No bruising. No contusions. No abrasions. No lymphangitis. NEUROLOGIC: Per HPI, otherwise unremarkable. PSYCHIATRIC: positive for confusion. ENDOCRINE: parathyroid disease. problems. HEMATOLOGICAL: No bleeding. No petechiae. No bruising. Exam PHYSICAL EXAM: Temperature: 98.2 F [36.8 C] (03/25/2024 10:39) Blood Pressure: 120/79 (03/25/2024 10:39) Pulse: 86 (03/25/2024 10:39) Respirations: 18 (03/25/2024 10:39) Height: 64 in [162.6 cm] (12/05/2023 10:27) Weight: 128.2 lb [58.15 kg] (03/25/2024 10:39) Physical Exam General - Appears stated age, NAD, afebrile, noncachectic HEENT - NC/AT, PERRL, EOMI, clear conjunctivae, nares patent, throat without erythema or exudate, moist mucous membranes, normal dentition Neck - Supple, Musculoskeletal - Moves all four extremities Ext - No c/c/e Skin - No rashes, positive ecchymoses in the hands (recent hospitalization with IV placement. Psych - Appropriate mood and affect Neurological exam: Cortical Functions: Mental status: Alert, awake, responsive, oriented to time and place and person,attentive Memory: impaired overall Normal attention span and normal concentration Fund of knowledge: impaired overall Language: Fluent, coherent, good naming and good repetition, No dysarthria and no aphasia. VF: Intact to confrontation test Neglect: No visual neglect,, no tactile neglect. Cranial nerves: CN II: Pupils are normal 3mm BRTL, reactive to light. Normal visual acuity. CN III- through : EOM: full, normal visual brasher, no VF cut No ptosis, no nystagmus CN V: Normal facial sensation to the 3 divisions bilaterally, and good masseter bilaterally. CN VII: No facial weakness or asymmetry bilaterally. Normal eyes closure and smile and normal eyebrows elevation bilaterally. CN VIII: mild reduced hearing CN IX, X: Normal (symmetric) palate elevation and sensation. Normal shoulder shrugging bilaterally and head turning to the sides with resistance. CNXII: Normal tongue protrusion, No tongue weakness or fasciculations or atrophy. Motor: Abnormal movements: None. No Fasciculations, no TD and no tremors. Tone: scisoring in the legs noted Bulk: thinning of the FDIs and APBs. Muscle strength Neck Flexors 5 Neck extensors 5 Right Left UE: SA 4 4 EF 5 5 EE 5 5 WE 5 5 WF 5 5 APB 4- 4- FDI 4- 4- LE: HF 4 4 KE 5 5 KF 5 5 ADF 5 5 DTR or Muscle Stretch Reflexes: Right Left BI 3 3 Tri 3 3 BR 2 2 Plummer No Pat 3 3 Ach 2 2 Toe extensor No Sensory exam: Uexts: normal position, proprioception, and vibration distally bilaterally. Normal touch bilaterally. LExts: normal position, proprioception, and reduced vibration in the toes bilaterally. Normal touch and pinprick bilaterally Cerebellar exam: Normal rapid alternative movements in the hands Normal rapid alternative movements in the legs . Normal finger nose finger in the hands bilaterally, Normal heel-knee- bledsoe bilaterally, No tremors noted Gait: spastic gait with scisoring, no ataxia. LAB RESULTS: Complete Blood Count WBC: 9.9 10*3/uL (03/25/24 11:45) RBC: 3.36 10*6/uL L (03/25/24 11:45) HGB: HGB 10.1 L g/dL 03/25/2024 11:45 HCT: 32.6 % (03/25/24 11:45) PLT: PLT 283 10*3/uL 03/25/2024 11:45 Comprehensive Metabolic Panel The OBJECT COMPREHENSIVE METABOLIC PANEL (STL-MA) is INACTIVE...Contact IRM. Lipid Panel The OBJECT LIPID PANEL (STL) was NOT found...Contact IRM. Other pertinent labs HgbA1c: HGA1C 5.7 % 08/15/2023 15:41 TSH: NL B12: ND. Impression/ plan: This is a 68 y/o woman with possible underlying dementia versu severe metabolic encephalopathy related to renal disease and recent UTI. not able to assess today. she was referred for ataxia, but her gait is not ataxic, instead it is spastic so myelopathy is considered. she has arthritis but with the falls, I am concerned for compression related to fractures. her exam indicates a chronic process (hyperreflexia and increased tone) and not an acute process. I would like to have her admitted so we can obtain MRI of the brain (to assess for vascular etiology for cognitive decline) and MRI of the whole spine. we will also need vitamin B12 level and copper. she does not want to go to the ER today but she agreed to come back tomorrow. we will alert ER and neurology in-patient service. she will need to see PT/OT and SW as well as she lives independently but this is concerning considering where she is physically and mentally today. Time spent with patient/proxy: I personally spent 70 minutes on today's date preparing to see the patient (e.g. reviewing chart, review of tests), obtaining and/or reviewing the separately obtained history, performing a medically necessary and appropriate examination and evaluation, counseling and educating the patient/family/caregiver, ordering medications, tests, or procedures, documenting in the patient record, and communicating results to the patient/family/caregiver. Cori Garza M.D Neurology // Cori Garza M.D Neurology Attending Signed: 03/27/2024 10:55 CORI GARZA [facility]
--- OUTSIDE RECORDS SUMMARY | 2024-11-30 14:50 | XMS_ITS | Encounter Summary ---
Author Name [facility] [place] [facility] [place] Address [address] [place] [address] Care Team Providers Care Vice President Digital Strategist Name Role Phone MARIA ELENACAMERONID Primary Care [...] PRESCRIPT ION NONE Mar 16, 2006 NONE [id number] MALAVE PATIENT AETNA [facility] PREFERRED PROVIDER ORGANIZAT ION (PPO) DEPAR TMENT OF DEFEN S Mar 16, 2006 [id number] MAL[place] PATIENT MEDICARE (WNR) MEDICARE (M) PART A Nov 14, 2020 PART A [id number] SHELBY BRA PATIENT MEDICARE (WNR) MEDICARE (M) PART B Nov 14, 2020 PART B [id number] [phone] MALAVE PATIENT Selected Encounter This section includes the information on record at [place] for the Encounter. Date/Time Encounter Type Encounter Description Reason Provider Source Nov 26, 2024 11:00 AM OFFICE O/P EST MOD 30 MIN RENAL/NEPHROL(EXCE PT DIALYSIS) ICD-10-CM N18.4 Chronic kidney disease, stage 4 (severe) LILIA LIN IH Encounter Template Text not used by [place] Assessments - Encounter Diagnoses This section includes the primary and secondary diagnoses documented for the Encounter. Date/Time Primary/Secondary Diagnosis Diagnosis Name Provider Source Nov 26, 2024 12:30 PM PRIMARY Chronic kidney disease, stage 4 (severe) [facility] Nov 26, 2024 12:30 PM SECONDARY Anemia in chronic kidney disease [facility] Nov 26, 2024 12:30 PM SECONDARY Essential (primary) [facility] Nov 26, 2024 12:30 PM SECONDARY Hypoparathyroidism , unspecified [facility] Plan of Treatment: Future Appointments (+ 6 months) and Future Tests (+/- 45 days) The Plan of Treatment section includes future care activities for the patient from all [place] [facility]. This section includes future appointments and future orders which are active, pending or scheduled. Future Appointments This section includes appointments that were scheduled to occur 6 months from the date of the Encounter, up to a maximum of 20 appointments. The data comes from all [place] treatment facilities. Appointment Date/Time Appointment Type Appointme nt Facility Name Nov 28, 2024 09:00 AM AMBULATORY - NONE [facility] Nov 28, 2024 10:00 AM AMBULATORY - NONE [facility] Dec 24, 2024 09:30 AM AMBULATORY - NONE [facility] Dec 25, 2024 11:00 AM AMBULATORY - REHAB MEDICIN E [facility] Jan 27, 2025 01:30 PM AMBULATORY - SURGERY [facility] Feb 04, 2025 10:30 AM AM[facility]ULATORY - NONE [facility] Feb 04, 2025 12:30 PM AMBULATORY - MEDICINE [facility] Mar 23, 2025 11:20 AM AMBULATORY - MEDICINE [facility] Apr 23, 2025 11:30 AM AMBULATORY - MEDICINE [facility] May 29, 2025 10:00 AM AMBULATORY - NONE [facility] Active, Pending, and Scheduled Orders This section includes a listing of several types of active, pending, and scheduled orders, including clinic medications orders, diagnostic test orders, procedure orders and consult orders; where the start date of the order is 45 days before the date of the Encounter or 45 days after the date of theEncounter. The data comes from all [place] treatment facilities. Test Date/Time Test Type Test Details Facility Name Oct 21, 2024 12:25 PM Consult [facility] Dec 12, 2024 12:00 AM Laboratory - Chemi stry Order RENAL PANEL GREEN LI/HEP BLD/PLAS PLASMA [facility] Dec 12, 2024 12:00 AM Laboratory - Chemi stry Order CYSTATIN C EGFR PANELS (STL-PB-MA) GREEN LI/HEP BLD/PLAS PLASMA [facility] Dec 12, 2024 12:00 AM Laboratory - Chemi stry Order CBC BLOOD [facility] Lab Results: +/- 30 days of the encounter This section includes the Chemistry and Hematology Lab Results on record with [place] for the patient. Radiology Reports and Pathology Reports are provided separately, in subsequent sections. Lab Results This section contains the Chemistry/Hematology Results that were resulted 30 days before or 30 daysafter the date of the Encounter. Date/Time Source Result Type Result - Unit Interpretation Reference Range Specimen Type Comment Nov 26, 2024 12:06 PM [facility] PTH, INTACT (STL) SERUM Specimen Type: SERUM No comment entered. Ordering Provider: MARISOL LIN Report Released Date/Time: Nov 26, 2024 08:04 AM Reporting Lab: [facility] [address] [facility] [address] Performing Lab: [facility] [address] [facility] [address] PTH, INTACT (STL) 32.80 pg/mL 8.7-77.7 Nov 26, 2024 12:06 PM [facility] FERRITIN SERUM Specimen Type: SERUM No comment entered. Ordering Provider: HOWIE LIN Report Released Date/Time: Nov 26, 2024 08:04 AM Reporting Lab: [facility] [address] [facility] [address] Performing Lab: [facility] [address] [facility] [address] FERRITIN 332.84 ng/mL H 10-204 Nov 26, 2024 12:06 PM [facility] VITAMIN D, 25-HYDROXY SERUM Specimen Type: SE RUM No comment entered. Ordering Provider: HOWIE LIN Report Released Date/Time: Nov 26, 2024 08:04 AM Reporting Lab: [facility] [address] [facility] [address] Performing Lab: [place] [address] [facility] [address] VITAMIN D, 25-HYDROXY 60.0 ng/mL 30-96 Nov 26, 2024 12:06 PM [facility] IRON/TIBC PROFILE SERUM Specimen Type: SERUM No comment entered. Ordering Provider: HOWIE LIN Report Released Date/Time: Nov 26, 2024 08:04 AM Reporting Lab: [facility] [address] [facility] [address] Performing Lab: [address] [address] TIBC 273 ug/dL 250-450 TRANSFERRIN 218 mg/dL 173-360 IRON SATURATION 26 20-50 IRON 70 ug/dL 50-170 Nov 26, 2024 12:06 PM [facility] RENAL PANEL PLASMA Specimen Type: PLASM A Comment: No hemolysis noted. Ordering Provider: HOWIE LIN Report Released Date/Time: Nov 26, 2024 08:04 AM Reporting Lab: [facility] [address] [address] Performing Lab: [address] [address] CREATININE 2.29 mg/dL H 0.6-1.1 UREA NITROGEN 37.9 mg/dL H 9.0-25.0 GLUCOSE 95 mg/dL 72-99 SODIUM 139 meq/L 136-145 POTASSIUM 4.8 meq/L 3.5-5 CHLORIDE 105 meq/L 98-107 CARBON DIOXIDE 24 meq/L 22-31 CALCIUM 8.0 mg/dL L 8.4-10.4 PHOSPHOROUS 5.1 mg/dL H 2.3-4.7 ALBUMIN 4.1 g/dL 3.4-5 EGFR (CKD-EPI 2020) 22.6 >60 Nov 26, 2024 12:06 PM [facility] CBC BLOOD Specimen Type: BLOOD No comment entered. Ordering Provider: HOWIE LIN Report Released Date/Time: Nov 26, 2024 08:04 AM Reporting Lab: [address] [address] Performing Lab: [address] [address] WBC 9.9 10*3/uL 3.6-11.2 RBC 3.36 10*6/uL L 3.60-5.00 HGB 10.8 g/dL L 11.0-14.9 HCT 35.2 32.6-43.4 MCV 104.8 fL H 80.0-100.0 MCH 32.1 pg 27.0-34.0 MCHC 30.7 g/dL L 33.0-36.0 PLT 184 10*3/uL 150-400 MPV 12.3 fL H 7.5-11.2 RDW 12.3 11.8-15.1 [address]MMATURE [address]T FRACTION 8.3 H 1.0-7.0 LYMPHOCYTES, AUTO % 19 MONOCYTES, AUTO % 8 NEUTROPHILS, AUTO % 72 EOSINOPHILS, AUTO % 1 BASOPHILS, AUTO % 0 LYMPHOCYTES, ABSOLUTE 1.83 10*3/uL 0.77- 4.50 MONOCYTES, ABSOLUTE 0.79 10*3/uL 0.19-0. 80 NEUTROPHILS, ABSOLUTE 7.10 10*3/uL 2.10- 8.00 EOSINOPHILS, ABSOLUTE 0.11 10*3/uL 0.00- 0.60 BASOPHILS, ABSOLUTE 0.02 10*3/uL 0.00-0. 20 Nov 26, 2024 12:06 PM [facility] RENAL PANEL PLASMA Specimen Type: PLASM A Comment: K result canceled due to hemolysis. Specimen moderately hemolyzed. Called to :Shamir Cline RN at: 1255 on: RENANP2 by: BLO K+ Cancelled due to moderate hemolysis. 11/26/2024 Ordering Provider: HOWIE LIN Report Released Date/Time: Nov 26, 2024 11:24 AM Reporting Lab: [address] [address] Performing Lab: [address] [address] CREATININE 2.29 mg/dL H 0.6-1.1 UREA NITROGEN 36.9 mg/dL H 9.0-25.0 GLUCOSE 94 mg/dL 72-99 SODIUM 139 meq/L 136-145 POTASSIUM canc meq/L H 3.5-5 CHLORIDE 105 meq/L 98-107 CARBON DIOXIDE 22 meq/L 22-31 CALCIUM 8.0 mg/dL L 8.4-10.4 PHOSPHOROUS 5.3 mg/dL H 2.3-4.7 ALBUMIN 4.0 g/dL 3.4-5 EGFR (CKD-EPI 2020) 22.6 >60 Oct 28, 2024 12:12 PM [facility] COMPREHENSIVE METABOLIC PANEL PLASMA Specimen Type: PLASMA Comment: No hemolysis noted. Ordering Provider: MAN ARREDONDO Report Released Date/Time: Oct 21, 2024 12:25 PM Reporting Lab: [address] [address] Performing Lab: [address] [address] CREATININE 2.53 mg/dL H 0.6-1.1 UREA NITROGEN 41.9 mg/dL H 9.0-25.0 GLUCOSE 71 mg/dL L 72-99 SODIUM 141 meq/L 136-145 POTASSIUM 4.2 meq/L 3.5-5 CHLORIDE 107 meq/L 98-107 CARBON DIOXIDE 21 meq/L L 22-31 CALCIUM 8.1 mg/dL L 8.4-10.4 PROTEIN 7.2 g/dL 6-8.6 ALBUMIN 4.3 g/dL 3.4-5 TOTAL BILIRUBIN 0.2 mg/dL 0.2-1.2 ALKALINE PHOSPHATASE 41 U/L 40-150 AST/SGOT 19 U/L 5-34 ALT/SGPT 10 U/L 8-40 EGFR (CKD-EPI 2020) 20.2 >60 Vital Signs: All taken on the encounter date This section contains inpatient and outpatient Vital Signs collected on the date of the Encounter. Date/Time Temperature Pulse Blood Pressure Respiratory Rate SP02 Pain Height Weight Body Mass Index Source Nov 26, 2024 10:45 AM 134/85 mm[Hg] [facility] Nov 26, 2024 10:43 AM 98 F 67 /min 150/87 mm[Hg] 16 /min 100 % 3 135.2 lb 23 [facility] N Social History: Smoking Status (Most current) and Tobacco Use (All prior to encounter date) This section includes the most current, and the historical, smoking and tobacco- related health factors from the [place] facility where the Encounter took place. Current Smoking Status This section includes the most current smoking, or tobacco-related health factor, from the [place] facility where the Encounter took place. Date/Time Current Smoking Status Comment Abbie castillo Oct 15, 2024 01:47 PM VA-TOBACCO USE FOR NIYAH CIGARETTES [facility] Tobacco Use History This section includes a history of the smoking, or tobacco-related health factors, that were collected on or before the date of the Encounter. The data comes from the [place] facility where the Encounter took place. Date/Time Smoking Status/Tobacco Use Comment F eyad Oct 15, 2024 01:47 PM VA-TOBACCO USE FOR NIYAH CIGARETTES [facility] Mar 28, 2024 12:54 PM ORYX ADMIT TOBACCO SCREEN REFUSED [facility] Sep 24, 2023 01:20 PM VA-TOBACCO FORMER USER [facility] Sep 24, 2023 01:20 PM VA-TOBACCO QUIT 15 YRS OR MORE [facility] Apr 06, 2021 07:54 PM ORYX ADMIT TOBACCO SCREEN NO [facility] Jul 26, 2020 09:33 AM VA-TOBACCO FORMER USER [facility] Jul 26, 2020 09:33 AM VA-TOBACCO QUIT 15 YRS OR MORE [facility] Aug 13, 2019 05:31 PM ORYX ADMIT TOBACCO SCREEN NO [facility] Nov 26, 2008 11:49 AM QUIT TOBACCO >7 YEARS AGO [facility] Advance Directives: All historical and current Section Date Range: From patient's date of to the date document was created. This section includes ALL of a patient's completed or amended [place] Advance and Rescinded Directives. The entries below indicate that a directive exists for the patient, but an actual copy is not included with this document. The data comes from all [place] facilities. Date Advance Directives Provider Source Nov 18, 2021 STATE-AUTHORIZED POR TABLE ORDERS ELIDIA NOONAN [facility] Radiology Reports: +/- 30 days of [...] the Encounter. The data comes from all [place] treatment facilities. Date/Time Radiology Report Provider Source Nov 28, 2024 09:26 AM MAMM SCREENING WIT H CAD-P: JOVANA TRINIDAD [id number] -1955 F Exm Date: NOV 28, 2024@09:26 Req Phys: MAN ARREDONDO Loc: [facility] (Req Img Loc: [facility] Service: [facility] [address] [place] [address] (Case [id number] COMPLETE) SCREENING BREAST ANNETTE, BILAT,ADD-(OLEG Detailed) CPT:59250 Proc Modifiers : LEFT, RIGHT Reason for Study: Annual screening (Case [id number] COMPLETE) MAMMOGRAPHY SCREENING, BILAT INCL([facility] Detailed) CPT:81140 Proc Modifiers : LEFT, RIGHT Clinical History: Oct 29, 2023: BI-RADS CATEGORY 1 Report Status: Verified Date Reported: NOV 28, 2024 Date Verified: NOV 28, 2024 Pressroom Supervisor E-Sig:/ES/MARYANN RICHARDSON Report: BILATERAL SCREENING MAMMOGRAM CASE NUMBERS: [id number], [id number] DATE: 11/28/2024. COMPARISON: Multiple prior mammograms, dating retrospectively between 10/18/2022 and, more recently, 10/29/2023. HISTORY: Screening mammogram. TECHNIQUE: Mammogram images were performed using 3D tomosynthesis images with reconstructed/synthetic 2D images and CAD analysis. BREAST COMPOSITION: The breasts are heterogeneously dense, which may obscure small masses. MAMMOGRAM FINDINGS: There is no suspicious mass, suspicious clustered microcalcification, or architectural distortion in either breast on 2D or 3D images. There have been no significant interval changes in the mammographic appearance when compared with the prior images. Impression: No mammographic evidence of malignancy. ASSESSMENT: BI-RADS Category 1: Negative mammogram. RECOMMENDATION: Screening mammography according to the [employer] / [employer] guidelines in consultation with primary healthcare provider. Primary Interpreting Staff: MARYANN RICHARDSON, Staff Physician (Pressroom Supervisor) /[facility] Oct 28, 2024 12:17 PM SHOULDER,LEFT,2 OR MORE VIEWS: JOVANA TRINIDAD [id number] -1955 F Exm Date: OCT 28, 2024@12:17 Req Phys: MAN ARREDONDO Loc: -[facility] PACT 2 PCP ([facility] Fide Img Loc: -MAIN RADIOLOGY SUITE Service: [address] [address] (Case [id number] COMPLETE) SHOULDER,LEFT,2 OR MORE VIEWS (RAD Detailed) CPT:21822 Proc Modifiers : LEFT Reason for Study: left shoulder pain Clinical History: Report Status: Verified Date Reported: OCT 31, 2024 Date Verified: OCT 31, 2024 Pressroom Supervisor E-Sig:/ES/MARYANN HOPKINS Report: Case [id number]. SHOULDER,LEFT,2 OR MORE VIEWS. Comparison: 08/15/2023 Findings: Postoperative changes of reverse left shoulder arthroplasty are redemonstrated. The hardware appears intact without evidence of loosening. There is no evidence of fracture or dislocation. No bone destruction is present. Moderate acromioclavicular osteoarthritis is redemonstrated. The visible portions of the left lung are clear. Impression: No significant interval change. Primary Interpreting Staff: MARYANN HOPKINS MD (Pressroom Supervisor) /MARYANN [facility] Encounter Notes: All associated encounter notes This section contains the clinical notes associated to the Encounter. Date/Time Encounter Note(s) Provider Source Nov 26, 2024 07:56 AM NEPHROLOGY OUTPATIENT NOTE: LOCAL TITLE: NEPHROLOGY OUTPATIENT FOLLOW UP STL STANDARD TITLE: NEPHROLOGY OUTPATIENT NOTE DATE OF NOTE: NOV 26, 2024@07:56 ENTRY DATE: NOV 26, 2024@07:56:15 AUTHOR: EB LIN EXP COSIGNER: URGENCY: STATUS: COMPLETED NEPHROLOGY OUTPATIENT FOLLOW UP STL Has ADDENDA Subjective: 69y/o m followed in renal for managment of CKD last renal appt was July [address] Maria appt today for follow-up. Pt said she mixed a step few day ago and fell and had some skin abrasions, denied hitting her head or any other major injury. She denied chest pain, sob, pain w urination, blood in urine or stool. She engages in physical exercise by walking abot a mile daily. 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 Home bp log systolic in the 130s-140s PROBLEM LIST: 1) Hearing loss * (ICD-9-CM 389.9) 2) HTN - Hypertension (SNOMED CT 16672792) 3) Hypercholesterolemia, Familial * (ICD-9-CM 272.0) 4) Deficiency of PTH (SNOMED CT 64920974) 5) 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 (SNOMED CT 352888109545455) 6) Depressive Disorder NOS * (ICD-9-CM 311./300.4) 7) Gynecologic Exam 8) OA - Osteoarthritis (SNOMED CT 696367661) 9) Skin tag (SNOMED CT 664341197) 10) Nonvenomous insect bite (SNOMED CT 486834774) 11) Foot callus (SNOMED CT 983094784) 12) Verruca plantaris (SNOMED CT 19853680) 13) Edema (SNOMED CT 547094855) 14) Cramp (SNOMED CT 13452668) 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 TAKE WITH PLENTY OF WATER. 2) ATENOLOL 100MG TAB TAKE ONE-HALF TABLET BY MOUTH ONCE A DAY ACTIVE DO NOT TAKE ANTACIDS OR CALCIUM SUPPLEMENTS WITHIN 2 HRS OF TAKING THIS MEDICATION. Indication: FOR HIGH BLOOD PRESSURE 3) ATORVASTATIN CALCIUM 40MG TAB TAKE ONE-HALF TABLET BY MOUTH ACTIVE EVERY EVENING FOR CHOLESTEROL. REPORT ANY UNEXPLAINED MUSCLE PAIN/WEAKNESS TO PROVIDER. 4) BUDESONIDE 3MG EC CAP TAKE ONE CAPSULE BY MOUTH EVERY ACTIVE MORNING 5) BUPROPION HCL 150MG 12HR SA TAB TAKE ONE TABLET BY MOUTH ACTIVE TWICE A DAY SWALLOW WHOLE - DO NOT CRUSH OR CHEW. 6) CALCITRIOL 0.25MCG CAP TAKE ONE CAPSULE BY MOUTH THREE TIMES ACTIVE PER WEEK 7) CALCIUM CARB 500MG (CA 200MG) CHEW TAB CHEW AND SWALLOW ONE ACTIVE TABLET BY MOUTH THREE TIMES A DAY WITH MEALS AND CHEW AND SWALLOW ONE TABLET AT BEDTIME Indication: FOR CALCIUM SUPPLEMENTATION 8) CETIRIZINE HCL 10MG TAB TAKE ONE-HALF TABLET BY MOUTH ONCE A ACTIVE (S) DAY FOR ALLERGY SYMPTOMS. NEW DOSE - RENAL ADJUSTED 9) ESTRADIOL 10MCG VAG TAB APPLICATOR INSERT 1 TABLET VAGINALLY ACTIVE TWO TIMES PER WEEK Indication: GENITOURINARY SYNDROME OF MENOPAUSE 10) FERROUS GLUCONATE 324MG TAB TAKE ONE TABLET BY MOUTH ONCE A ACTIVE DAY FOR IRON SUPPLEMENTATION. 11) LIDOCAINE 5% PATCH APPLY 1 PATCH TO SKIN SITE ONCE A DAY ACTIVE APPLY PATCH AND PRESS FIRMLY FOR 10-15 SECONDS. KEEP ON FOR 12 HOURS THEN REMOVE PATCH FOR 12 HOURS. Indication: FOR LOCAL ANESTHESIA 12) LOPERAMIDE HCL 2MG CAP TAKE ONE CAPSULE BY MOUTH EVERY DAY ACTIVE NEEDED FOR DIARRHEA. 13) MELATONIN 3MG CAP/TAB TAKE TWO CAP/TAB BY MOUTH AT BEDTIME ACTIVE FOR SLEEP 14) TRAMADOL HCL 50MG TAB TAKE 1 TABLET BY MOUTH AT BEDTIME ACTIVE Indication: FOR PAIN Active Non-VA Medications Status 1) Non-VA FISH OIL 1000MG (500MG DHA/EPA) CAP 1000MG BY MOUTH ACTIVE TWICE A DAY 2) Non-VA MAGNESIUM OXIDE TAB 250MG BY MOUTH TWICE A DAY ACTIVE medications reviewed Physical exam: Temperature: 98 F [36.7 C] (11/26/2024 10:43) Blood Pressure: 134/85 (11/26/2024 10:45) Pulse: 67 (11/26/2024 10:43) Respirations: 16 (11/26/2024 10:43) O2 Saturation: 100% (11/26/2024 10:43) Weight: 135.2 lb [61.33 kg] (11/26/2024 10:43) Height: 64 in [162.6 cm] (10/06/2024 13:28) General:69 FEMALENOT OR NAD, WNWD HEENT: sclera anicteric NECK: Supple, no thyromegaly LUNGS: CTAB, regular unlabored CV: RRR, S1 S2, no S3 S4 or murmurs ABD: round/non distended, +BS EXT: no edema, skin abrasion noted in right elbow, bruises noted in several areas due to thin/frail skin MOOD: appropriate, pleasant BRANCH ASSOCIATE: non focal Lab Data: CBC: WBC 7.1 10*3/uL 07/18/2024 11:46 RBC 3.87 10*6/uL 07/18/2024 11:46 HGB 12.0 g/dL 07/18/2024 11:46 HCT 38.2 % 07/18/2024 11:46 MCV 98.7 fL 07/18/2024 11:46 MCH 31.0 pg 07/18/2024 11:46 MCHC 31.4 L g/dL 07/18/2024 11:46 RDW 13.7 % 07/18/2024 11:46 PLT 234 10*3/uL 07/18/2024 11:46 MPV 11.5 H fL 07/18/2024 11:46 NEUTROPHILS, AUTO % 69 % 07/18/2024 11:46 LYMPHOCYTES, AUTO % 21 % 07/18/2024 11:46 MONOCYTES, AUTO % 7 % 07/18/2024 11:46 EOSINOPHILS, AUTO % 2 % 07/18/2024 11:46 BASOPHILS, AUTO % 0 % 07/18/2024 11:46 NEUTROPHILS, ABSOLUTE 4.89 10*3/uL 07/18/2024 11:46 LYMPHOCYTES, ABSOLUTE 1.52 10*3/uL 07/18/2024 11:46 MONOCYTES, ABSOLUTE 0.51 10*3/uL 07/18/2024 11:46 EOSINOPHILS, ABSOLUTE 0.13 10*3/uL 07/18/2024 11:46 BASOPHILS, ABSOLUTE 0.02 10*3/uL 07/18/2024 11:46 NEUTROPHILS 65.4 % 03/28/2024 11:10 LYMPHOCYTES 20.9 % 03/28/2024 11:10 MONOCYTES 5.5 % 03/28/2024 11:10 EOSINOPHILS 2.7 % 03/28/2024 11:10 ATYPICAL LYMPHOCYTES 5.5 % 03/28/2024 11:10 Renal Function Panel: SODIUM 141 mEq/L 10/28/2024 12:12 POTASSIUM 4.2 mEq/L 10/28/2024 12:12 CHLORIDE 107 mEq/L 10/28/2024 12:12 UREA NITROGEN 41.9 H mg/dL 10/28/2024 12:12 CREATININE 2.53 H mg/dL 10/28/2024 12:12 CALCIUM 8.1 L mg/dL 10/28/2024 12:12 CARBON DIOXIDE 21 L mEq/L 10/28/2024 12:12 GLUCOSE 71 L mg/dL 10/28/2024 12:12 EGFR (CKD-EPI 2020) 20.2 10/28/2024 12:12 ALBUMIN 4.3 g/dL 10/28/2024 12:12 PHOSPHOROUS 5.5 H mg/dL 07/18/2024 11:46 Intact PTH: VITAMIN D, 25-HYDROXY 42.5 ng/mL 07/18/2024 11:46 Anemia Labs: IRON 78 ug/dL 07/18/2024 11:46 IRON SATURATION 25 %SAT 07/18/2024 11:46 TIBC 314 ug/dL 07/18/2024 11:46 0 FERRITIN 314.64 H ng/mL 07/18/2024 11:46 Urine Studies: URINE COLOR Yellow 06/13/2024 09:41 APPEARANCE Ex.Turbid 06/13/2024 09:41 U.PH 6.5 06/13/2024 09:41 U.BILIRUBIN Negative mg/dL 06/13/2024 09:41 U.NITRITE Negative mg/dL 06/13/2024 09:41 URINE RBC/HPF 32 H /HPF 06/13/2024 09:41 URINE WBC/HPF >182 H /HPF 06/13/2024 09:41 WBC Clumps MANY /HPF 06/13/2024 09:41 BACTERIA FEW /HPF 06/13/2024 09:41 SQUAMOUS EPITH. 4 /HPF 06/13/2024 09:41 HYALINE CASTS 9 /LPF 06/13/2024 09:41 CREATuF: 15.6 (07/18/24 12:04) M/CREAT: 2183 (07/18/24 12:04) MICRAL: 340.6 (07/18/24 12:04) No data available for: US RENAL COMPLETE Impression for US RENAL COMPLETE, 04/14/24, case [id number] Mild right hydronephrosis. No renal calculi or solid renal mass. Bilateral renal parenchymal thinning may represent chronic renal disease. Report dictated by Gera Perez (residential subcontractor) I, Maryann Hopkins, have reviewed the images and report and concur with these findings. 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 Was instructed to monitor bp and hold for any dizziness or lightheadedness continue good hydration #HTN/Edema - bp at goal at goal, no edema started on lisinopril 5mg at night for antiproteinuric effect continue atenolol 50mg daily. continue bp log, instructed to monitor more frequenctly and to notify provider if trending lower continue sodium restriction #Secondary hyperparathyroidism #Hx hypoparathyroidism complicated by high Ca/nephrocalcinosis many yrs ago due to hypercalcemia from rx. Goal is to keep Ca low normal to limit Ca excretion vitamin D 42.5, pth 31.5 continue calcitriol 0.25mcg 3x/week phos 5.5 on most recent lab, instructed to reduce intake of foods high in phos, will recheck level ca 8.1, alb 4.3 on most recent lab, will continue calcium carbonate to I tid with meals and at bedtime #Anemia - hgb 12 on most recent lab, at goal for the stage of kidney disease, 25% from most recent lab, ferritin 314 will continue po iron #Acid-Base - bicarb 21 on most recent lab; will recheck today and start supplementation if indicated #Transplant eval placed on hold at [facility] due to improved kidney function and egfr consistently above 20 egfr 20.3 on most recent lab, will recheck today will cc renal transplant coord to note to consider restarting transplant eval if egfr meets criteria. Dialysis access planning pt chose [facility] will start access planning when egfr below 15 On the day of the encounter, I spent 30 minutes on some or all of the following: chart review, history, physical examination, treatment planning, education, and counseling of the patient placing orders, communicating with other health care providers, and documentation in the electronic health record /sandra/ HOWIE LIN APRN, SYSTEMS SUPPORT OFFICER-BC, DNP NURSE PRACTITIONER Signed: 11/26/2024 12:32 11/27/2024 ADDENDUM STATUS: COMPLETED Labs resulted, creat stable, phos and calcium not quite at goal and pt acknowledged taking 1 calcium carbonate w meals and at bedtime. She was instructed to take 2 with large meals or meals w higher phos content and to take 2 tums every other night. Hgb lower but pt denied any bleeding, tsat at goal Will recheck levels in 2 weeks. Lab Data: CBC: WBC 9.9 10*3/uL 11/26/2024 12:06 RBC 3.36 L 10*6/uL 11/26/2024 12:06 HGB 10.8 L g/dL 11/26/2024 12:06 HCT 35.2 % 11/26/2024 12:06 MCV 104.8 H fL 11/26/2024 12:06 MCH 32.1 pg 11/26/2024 12:06 MCHC 30.7 L g/dL 11/26/2024 12:06 RDW 12.3 % 11/26/2024 12:06 PLT 184 10*3/uL 11/26/2024 12:06 MPV 12.3 H fL 11/26/2024 12:06 NEUTROPHILS, AUTO % 72 % 11/26/2024 12:06 LYMPHOCYTES, AUTO % 19 % 11/26/2024 12:06 MONOCYTES, AUTO % 8 % 11/26/2024 12:06 EOSINOPHILS, AUTO % 1 % 11/26/2024 12:06 BASOPHILS, AUTO % 0 % 11/26/2024 12:06 NEUTROPHILS, ABSOLUTE 7.10 10*3/uL 11/26/2024 12:06 LYMPHOCYTES, ABSOLUTE 1.83 10*3/uL 11/26/2024 12:06 MONOCYTES, ABSOLUTE 0.79 10*3/uL 11/26/2024 12:06 EOSINOPHILS, ABSOLUTE 0.11 10*3/uL 11/26/2024 12:06 BASOPHILS, ABSOLUTE 0.02 10*3/uL 11/26/2024 12:06 NEUTROPHILS 65.4 % 03/28/2024 11:10 LYMPHOCYTES 20.9 % 03/28/2024 11:10 MONOCYTES 5.5 % 03/28/2024 11:10 EOSINOPHILS 2.7 % 03/28/2024 11:10 ATYPICAL LYMPHOCYTES 5.5 % 03/28/2024 11:10 IMMATURE PLT FRACTION 8.3 H % 11/26/2024 12:06 Renal Function Panel: SODIUM 139 mEq/L 11/26/2024 12:06 POTASSIUM 4.8 mEq/L 11/26/2024 12:06 CHLORIDE 105 mEq/L 11/26/2024 12:06 UREA NITROGEN 37.9 H mg/dL 11/26/2024 12:06 CREATININE 2.29 H mg/dL 11/26/2024 12:06 CALCIUM 8.0 L mg/dL 11/26/2024 12:06 CARBON DIOXIDE 24 mEq/L 11/26/2024 12:06 GLUCOSE 95 mg/dL 11/26/2024 12:06 EGFR (CKD-EPI 2020) 22.6 11/26/2024 12:06 ALBUMIN 4.1 g/dL 11/26/2024 12:06 PHOSPHOROUS 5.1 H mg/dL 11/26/2024 12:06 Intact PTH: VITAMIN D, 25-HYDROXY 60.0 ng/mL 11/26/2024 12:06 Anemia Labs: IRON 70 ug/dL 11/26/2024 12:06 IRON SATURATION 26 %SAT 11/26/2024 12:06 TIBC 273 ug/dL 11/26/2024 12:06 0 FERRITIN 332.84 H ng/mL 11/26/2024 12:06 /sandra/ GUY ESTEBAN APRN-BC, DNP NURSE PRACTITIONER Signed: 11/27/2024 10:17 [facility]
--- OUTSIDE RECORDS SUMMARY | 2024-11-30 14:51 | XMS_ITS ---
[place] HOSPITALIZATION [facility] Encounter Summary Created on: November 30, 2024 HALI TRINIDAD : 1955 Sex: Female Author Name [facility] [place] [facility] [place] Address [address] [place] [address] Care Team Providers Care Topographical Drafter Name Role Phone MAN ARREDONDO Primary Care Provider Unavailabl e Insurance [...] PRESCRIPT ION NONE Mar 16, 2006 NONE [id number] [place] PATIENT [facility]NA [facility] PREFERRED PROVIDER ORGANIZAT ION (PPO) DEPAR TMENT OF DEFEN S Mar 16, 2006 [id number] [phone] SHELBY BRA PATIENT MEDICARE (WNR) MEDICARE (M) PART A Nov 14, 2020 PART A [id number] SHELBY BRA PATIENT MEDICARE (WNR) MEDICARE (M) PART B Nov 14, 2020 PART B [id number] [phone] MALAVE PATIENT Selected Encounter This section includes the information on record at [place] for the Encounter. Date/Time Encounter Type Encounter Description Reason Pro vider Source Mar 28, 2024 03:44 PM Inpatient Visit HOSPITALIZATION ICD-10-CM D63.1 Anemia in chronic kidney disease [facility] Encounter Template Text not used by [place] Assessments - Encounter Diagnoses This section includes the primary and secondary diagnoses documented for the Encounter. Date/Time Primary/Secondary Diagnosis Diagnosis Name Provider Source Mar 30, 2024 11:13 AM Diagnosis for Length of Stay Dehydration [facility] Mar 30, 2024 11:13 AM SECONDARY Acute kidney failure, unspecified [facility] Mar 30, 2024 11:13 AM SECONDARY Anemia in chronic kidney disease [facility] Mar 30, 2024 11:13 AM SECONDARY Chronic kidney disease, stage 4 (severe) [facility] Mar 30, 2024 11:13 AM SECONDARY Collagenous colitis [facility] Mar 30, 2024 11:13 AM SECONDARY Gout, unspecified [facility] Mar 30, 2024 11:13 AM SECONDARY Hyperlipidemia, unspecified [facility] Mar 30, 2024 11:13 AM SECONDARY Hypertensive chronic kidney disease w stg 1-4/unsp chr kdny [facility] Mar 30, 2024 11:13 AM SECONDARY Hypoparathyroidism, unspecified [facility] Mar 30, 2024 11:13 AM SECONDARY Personal history of urinary (tract) infections [facility] Mar 30, 2024 11:13 AM SECONDARY Repeated falls [facility] Mar 30, 2024 11:13 AM SECONDARY Secondary hyperparathyroidism of renal origin [facility] Mar 30, 2024 11:13 AM SECONDARY Unspecified hearing loss, unspecified ear [facility] Mar 30, 2024 11:13 AM SECONDARY Weakness [facility] Plan of Treatment: Future Appointments (+ 6 months) and Future Tests (+/- 45 days) The Plan of Treatment section includes future care activities for the patient from all [place] treatmentfacilities. This section includes future appointments and future orders which are active, pending or scheduled. Future Appointments This section includes appointments that were scheduled to occur 6 months from the date of the Encounter, up to a maximum of 20 appointments. The data comes from all [facility]. Appointment Date/Time Appointment Type Appointme nt Facility Name Apr 02, 2024 10:00 AM AMBULATORY - MEDICINE [facility] Apr 14, 2024 02:30 PM AMBULATORY - MEDICINE [facility] Apr 30, 2024 02:00 PM AMBULATORY - NONE . [facility] May 06, 2024 10:30 AM AMBULATORY - NONE [facility] May 30, 2024 10:00 AM AMBULATORY - MEDICINE [facility] May 30, 2024 01:30 PM AMBULATORY - NONE . [facility] Jun 13, 2024 09:00 AM AMBULATORY - SURGERY [facility] Jun 20, 2024 11:00 AM AMBULATORY - SURGERY [facility] Jul 09, 2024 01:00 PM AMBULATORY - SURGERY [facility] Jul 18, 2024 11:40 AM AMBULATORY - MEDICINE [facility] Jul 29, 2024 12:00 PM AMBULATORY - NONE . [facility] Aug 11, 2024 12:20 PM AMBULATORY - MEDICINE [facility] September 09, 2024 12:00 PM AMBULATORY - NONE [facility] Active, Pending, and Scheduled Orders This section includes a listing of several types of active, pending, and scheduled orders, including clinic medications orders, diagnostic test orders, procedure orders and consult orders; where the start date of the order is 45 days before the date of the Encounter or 45 days after the date of theEncounter. The data comes from all [facility]. Test Date/Time Test Type Test Details Facility Name Mar 25, 2024 12:00 AM Laboratory - Chemi stry Order URINALYSIS (STL-PB) URINE SP [facility] Mar 25, 2024 12:00 AM Laboratory - Microbiology Order C&S URINE URINE,CLEAN CATCH [facility] Mar 28, 2024 11:15 AM Laboratory - Chemi stry Order COPPER BLOOD IN AM WC [facility] Lab Results: +/- 30 days of the encounter This section includes the Chemistry and Hematology Lab Results on record with [place] for the patient. Radiology Reports and Pathology Reports are provided separately, in subsequent sections. Lab Results This section contains the Chemistry/Hematology Results that were resulted 30 days before or 30 daysafter the date of the Encounter. Date/Time Source Result Type Result - Unit Interpretation Reference Range Specimen Type Comment Mar 30, 2024 07:44 AM [facility] BASIC METABOLIC PANEL PLASMA Specimen Type: PLASMA Comment: No hemolysis noted. Ordering Provider: REINA PANDEY Report Released Date/Time: Mar 28, 2024 03:46 PM Reporting Lab: [address] [address] Performing Lab: [address] [address] CREATININE 2.19 mg/dL H 0.6-1.1 UREA NITROGEN 30.2 mg/dL H 9.0-25.0 GLUCOSE 123 mg/dL H 72-99 SODIUM 144 meq/L 136-145 POTASSIUM 3.6 meq/L 3.5-5 CHLORIDE 106 meq/L 98-107 CARBON DIOXIDE 24 meq/L 22-31 CALCIUM 10.8 mg/dL H 8.4-10.4 EGFR (CKD-EPI 2020) 24.0 >60 Mar 30, 2024 07:44 AM [facility] CBC BLOOD Specimen Type: BLOOD No comment entered. Ordering Provider: REINA PANDEY Report Released Date/Time: Mar 28, 2024 03:46 PM Reporting Lab: [address] [address] Performing Lab: [address] [address] WBC 6.7 10*3/uL 3.6-11.2 RBC 3.35 10*6/uL [...] 0.00-0. 20 Mar 29, 2024 07:59 AM [facility] CORTISOL(STL Eff 01/21) PLASMA Specimen Type: PLASMA Comment: No hemolysis noted. Ordering Provider: REINA PANDEY Report Released Date/Time: Mar 28, 2024 05:00 PM Reporting Lab: [place] [address] [facility] [address] Performing Lab: [address] [address] CORTISOL(STL Eff 01/21) 14.700 ug/dL Mar 29, 2024 07:59 AM [facility] BASIC METABOLIC PANEL PLASMA Specimen Type: PL ASMA Comment: No hemolysis noted. Ordering Provider: REINA PANDEY Report Released Date/Time: Mar 28, 2024 03:46 PM Reporting Lab: [place] [address] [facility] [address] Performing Lab: [place] [address] [facility] [address] CREATININE 2.58 mg/dL H 0.6-1.1 UREA NITROGEN 39.0 mg/dL H 9.0-25.0 GLUCOSE 137 mg/dL H 72-99 SODIUM 145 meq/L 136-145 POTASSIUM 3.8 meq/L 3.5-5 CHLORIDE 106 meq/L 98-107 CARBON DIOXIDE 24 meq/L 22-31 CALCIUM 10.9 mg/dL H 8.4-10.4 EGFR (CKD-EPI 2020) 19.7 >60 Mar 29, 2024 07:59 AM [facility] CBC BLOOD Specimen Type: BLOOD No comment entered. Ordering Provider: REINA PANDEY Report Released Date/Time: Mar 28, 2024 03:46 PM Reporting Lab: [address] [address] Performing Lab: [facility] [address] [place] [address] WBC 5.9 10*3/uL 3.6-11.2 RBC 3.27 10*6/uL [...] 0.00-0. 20 Mar 28, 2024 07:20 PM [facility] URINALYSIS W/ CX REFLEX (STL-PB) URINE Specim en Type: URINE No comment entered. Ordering Provider: REINA PANDEY Report Released Date/Time: Mar 28, 2024 02:27 PM Reporting Lab: [address] [address] Performing Lab: [address] [address] URINE COLOR Colorless Yellow U.BILIRUBIN Negative mg/dL Negative U.PH 7.5 5.0-8.0 APPEARANCE Clear Clear U.NITRITE Negative mg/dL Negative URN.GLUCOSE Normal mg/dL Negative URN.PROTEIN Negative mg/dL URN.UROBILINOGEN Normal mg/dL Normal URN.BLOOD Negative mg/dL Negative-Trace URN.KETONES Negative mg/dL Negative-Trac e URN.LEUK.EST. Negative mg/dL Negative-Tr kiarra URN.SPECIFIC GRAVITY 1.008 Mar 28, 2024 06:11 PM [facility] METHYLMALONIC ACID SERUM Specimen Type: SERUM Comment: [...] neural tube defects and intrauterine growth restriction. [email or web address] utilized Multi-Modal Decomposition (MMD) analysis to establish first and second trimester- specific MMA reference intervals in , as given below: MMA, First trimester (<13 wks gestation): 58-167 nmol/L MMA, Second trimester (13-23 wks gestation): 63-241 nmol/L This test was developed and its analytical performance characteristics have been determined by [email or web address]. It has not been cleared or approved by the FDA. This assay has been validated pursuant to the CLIA regulations and is used for clinical purposes. Test Performed by [employer] [facility], [address] [place] [address] Iker Simon M.D., Ph.D., Director of Laboratories , CLIA [id number] Ordering Provider: REINA PANDEY Report Released Date/Time: Mar 28, 2024 03:46 PM Reporting Lab: [facility] [address] [facility] [address] Performing Lab: [facility] [address] [facility] METHYLMALONIC ACID 512 nmol/L H 69-390 Mar 28, 2024 06:11 PM [facility] B12 SERUM Specimen Type: SERUM No comment entered. Ordering Provider: REINA PANDEY Report Released Date/Time: Mar 28, 2024 03:46 PM Reporting Lab: [address] [address] Performing Lab: [address] [address] B12 287 pg/mL 213-816 Mar 28, 2024 06:11 PM [facility] FOLATE (STL-MA) SERUM Specimen Type: SERUM No comment entered. Ordering Provider: REINA PANDEY Report Released Date/Time: Mar 28, 2024 03:46 PM Reporting Lab: [address] [address] Performing Lab: [address] [address] FOLATE (STL-MA) 13.9 ng/mL 7-20 Mar 28, 2024 06:11 PM [facility] COMPREHENSIVE METABOLIC PANEL PLASMA Specimen Type: PLASMA Comment: No hemolysis noted. Ordering Provider: REINA PANDEY Report Released Date/Time: Mar 28, 2024 03:46 PM Reporting Lab: [address] [address] Performing Lab: [address] [address] CREATININE 2.68 mg/dL H 0.6-1.1 UREA NITROGEN [...] 18.8 >60 Mar 28, 2024 06:11 PM [facility] TSH W/ REFLEX FT4 (STL) PLASMA Specimen Type: PLASMA No comment entered. Ordering Provider: REINA PANDEY Report Released Date/Time: Mar 28, 2024 03:46 PM Reporting Lab: [place] [address] Performing Lab: [place] [address] TSH 2.508 u[IU]/mL 0.47-5 Mar 28, 2024 06:11 PM [facility] HGA1C BLOOD Specimen Type: BLOOD No comment entered. Ordering Provider: REINA PANDEY Report Released Date/Time: Mar 28, 2024 03:46 PM Reporting Lab: [place] [address] Performing Lab: [place] [address] HGA1C 5.5 4.0-6.0 Mar 28, 2024 06:11 PM [facility] CBC BLOOD Specimen Type: BLOOD No comment entered. Ordering Provider: REINA PANDEY Report Released Date/Time: Mar 28, 2024 03:46 PM Reporting Lab: [place] [address] Performing Lab: [place] [address] WBC 9.0 10*3/uL 3.6-11.2 RBC 3.31 10*6/uL [...] 0.00-0. 20 Mar 28, 2024 04:18 PM [facility] MRSA SURVL NARES DNA NARES Specimen [...] epidemiological information for final interpretation. Ordering Provider: CHAIM BROWN Report Released Date/Time: Mar 28, 2024 04:15 PM Reporting Lab: [facility] [address] [facility] [address] Performing Lab: [address] [address] MRSA SURVL NARES DNA Negative Negative Mar 28, 2024 11:10 AM [facility] B12 SERUM Specimen Type: SERUM No comment entered. Ordering Provider: CLEMENT PAN Report Released Date/Time: Mar 28, 2024 11:15 AM Reporting Lab: [facility] [address] [facility] [address] Performing Lab: [address] [address] B12 247 pg/mL 213-816 Mar 28, 2024 11:10 AM [facility] BASIC METABOLIC PANEL PLASMA Specimen Type: PL ASMA Comment: No hemolysis noted. Ordering Provider: CLEMENT PAN Report Released Date/Time: Mar 28, 2024 11:15 AM Reporting Lab: [facility] [address] [place] [address] Performing Lab: [address] [address] CREATININE 2.90 mg/dL H 0.6-1.1 UREA NITROGEN 40.6 mg/dL H 9.0-25.0 GLUCOSE 99 mg/dL 72-99 SODIUM 140 meq/L 136-145 POTASSIUM 4.2 meq/L 3.5-5 CHLORIDE 104 meq/L 98-107 CARBON DIOXIDE 22 meq/L 22-31 CALCIUM 11.3 mg/dL H 8.4-10.4 EGFR (CKD-EPI 2020) 17.1 >60 Mar 28, 2024 11:10 AM [facility] CBC BLOOD Specimen Type: BLOOD No comment entered. Ordering Provider: CLEMENT PAN Report Released Date/Time: Mar 28, 2024 11:15 AM Reporting Lab: [facility] [address] [place] [address] Performing Lab: [address] [address] WBC 9.9 10*3/uL 3.6-11.2 RBC 3.34 10*6/uL [...] 10*3/uL 2.10-8.00 Mar 25, 2024 11:45 AM [facility] MAGNESIUM PLASMA Specimen Type: PLASM A Comment: No hemolysis noted. Ordering Provider: MAN ARREDONDO Report Released Date/Time: Mar 25, 2024 11:30 AM Reporting Lab: [facility] [address] [facility] [address] Performing Lab: [facility] [address] [place] [address] MAGNESIUM 1.8 mg/dL 1.6-2.6 Mar 25, 2024 11:45 AM [facility] COMPREHENSIVE METABOLIC PANEL PLASMA Specimen Type: PLASMA Comment: No hemolysis noted. Ordering Provider: MAN ARREDONDO Report Released Date/Time: Mar 25, 2024 11:30 AM Reporting Lab: [facility] [address] [facility] [address] Performing Lab: [facility] [address] [place] [address] CREATININE 2.62 mg/dL H 0.6-1.1 UREA NITROGEN [...] 19.3 >60 Mar 25, 2024 11:45 AM [facility] CBC BLOOD Specimen Type: BLOOD No comment entered. Ordering Provider: MAN ARREDONDO Report Released Date/Time: Mar 25, 2024 11:30 AM Reporting Lab: [facility] [address] [facility] [address] Performing Lab: [facility] [address] [facility] [address] WBC 9.9 10*3/uL 3.6-11.2 RBC 3.36 10*6/uL [...] Source Mar 28, 2024 08:57 PM 0 [facility] Mar 28, 2024 08:20 PM 97.9 72 147/79 18 96 0 [facility] Mar 28, 2024 06:14 PM 3 [facility] Mar 28, 2024 06:03 PM 3 [facility] Mar 28, 2024 04:41 PM 97.7 69 164/92 18 96 3 [facility] Social History: Smoking Status (Most current) and Tobacco Use (All prior to encounter date) This section includes the most current, and the historical, smoking and tobacco- related health factors from the [place] facility where the Encounter took place. Current Smoking Status This section includes the most current smoking, or tobacco-related health factor, from the [place] facility where the Encounter took place. Date/Time Current Smoking Status Comment Abbie ity Mar 28, 2024 12:54 PM ORYX ADMIT TOBACCO SCREEN REFUSED [facility] Tobacco Use History This section includes a history of the smoking, or tobacco-related health factors, that were collected on or before the date of the Encounter. The data comes from the [place] facility where the Encounter took place. Date/Time Smoking Status/Tobacco Use Comment F acility Sep 24, 2023 01:20 PM VA-TOBACCO FORMER USER [facility] Sep 24, 2023 01:20 PM VA-TOBACCO QUIT 15 YRS OR MORE [facility] Apr 06, 2021 07:54 PM ORYX ADMIT TOBACCO SCREEN NO [facility] Jul 26, 2020 09:33 AM VA-TOBACCO FORMER USER [facility] Jul 26, 2020 09:33 AM VA-TOBACCO QUIT 15 YRS OR MORE [facility] Aug 13, 2019 05:31 PM ORYX ADMIT TOBACCO SCREEN NO [facility] Nov 26, 2008 11:49 AM QUIT TOBACCO >7 YEARS AGO [facility] Advance Directives: All historical and current Section Date Range: From patient's date of to the date document was created. This section includes ALL of a patient's completed or amended [place] Advance and Rescinded Directives. The entries below indicate that a directive exists for the patient, but an actual copy is not included with this document. The data comes from all [facility]. Date Advance Directives Provider Source Nov 18, 2021 STATE-AUTHORIZED POR TABLE ORDERS ELIDIA NOONAN [facility] Radiology Reports: +/- 30 days of [...] the Encounter. The data comes from all [place] treatment facilities. Date/Time Radiology Report Provider Source Apr 14, 2024 01:58 PM US RENAL COMPLETE: HALI TRINIDAD [id number] -1955 F Exm Date: APR 14, 2024@13:58 Req Phys: MAN ARREDONDO Pat Loc: [facility]-ST CLR PACT 2 PCP (Req'g Lo Img Loc: [facility]-ULTRASOUND [facility] Service: Unknown [facility], [address] [place] [address] (Case [id number] COMPLETE) US RENAL COMPLETE (US Detailed) CPT:63517 Reason for Study: worsening kidney funcion Clinical History: Report Status: Verified Date Reported: APR 14, 2024 Date Verified: APR 14, 2024 Accelerator Technician E-Sig:/ES/MARYANN WAKEFIELD Report: Case [id number]. US RENAL COMPLETE. TECHNIQUE: Realtime ultrasound examination [...] renal disease. Report dictated by Gera Yee (vice president [employer]) Maryann Ball, have reviewed the images and report and concur with these findings. Primary Interpreting Staff: MARYANN WAKEFIELD MD (Accelerator Technician) Primary Interpreting Resident: GERA YEE MD /MARYANN FLOREZ [facility] Mar 28, 2024 02:15 PM MRI SPINE THORACIC W/O CONT: HALI TRINIDAD [id number] -1955 F Exm Date: MAR 28, 2024@14:15 Req Phys: CLEMENT PAN Loc: 6-N SURG-[facility]/03-28-2024@15:52 Img Loc: [facility] Service: Unknown [facility], [facility] [address] [place] [address] (Case [id number] COMPLETE) MRI SPINE THORACIC W/O CONT (MRI Detailed) CPT:09011 Reason for Study: spastic gait, rule out [...] Responsible Attending: clement pan Attending Contact Number: [phone] Resident Contact Number: Does your patient have [...] 28, 2024 Date Verified: MAR 28, 2024 Accelerator Technician E-Sig:/ES/Alexis Gallo MD. FACR. Report: History: spastic [...] Interpreting Staff: Alexis Gallo MD. FACR, Neuroradiologist (Accelerator Technician) /ALEXIS CORBETT [facility] Mar 28, 2024 02:12 PM MRI SPINE CERVICAL W/O CONT: HALI TRINIDAD [id number] -1955 F Exm Date: MAR 28, 2024@14:12 Req Phys: CLEMENT PAN [facility] Loc: 6-N SURG-[facility]/03-28-2024@15:46 [facility] [place]: [facility] Service: Unknown [facility] [address] [place] [address] (Case [id number] COMPLETE) MRI SPINE CERVICAL W/O CONT (MRI Detailed) CPT:07455 Reason for Study: spastic gait, rule out [...] 28, 2024 Date Verified: MAR 28, 2024 Accelerator Technician E-Sig:/ES/Alexis Gallo MD. FACR. Report: History: spastic [...] Interpreting Staff: Alexis Gallo MD. FACR, Neuroradiologist (Accelerator Technician) /ALEXIS CORBETT [facility] Mar 28, 2024 02:11 PM MRI BRAIN W/O CONT : HALI TRINIDAD [id number] -1955 F Exm Date: MAR 28, 2024@14:11 Req Phys: CLEMENT PAN Pat Loc: [facility]-EMERGENCY DEPT 2ND SHIFT (R Img Loc: [facility] [address] [place] [address] (Case [id number] COMPLETE) MRI BRAIN W/O CONT (MRI Detailed) CPT:87301 Reason for Study: cognitive decline ? vascular dementia Clinical History: Responsible Attending: clement pan Attending Contact Number: [id number] Resident Contact Number: Does your patient have [...] 28, 2024 Date Verified: MAR 28, 2024 Accelerator Technician E-Sig:/ES/Alexis Gallo MD. FACR. Report: History: cognitive [...] Interpreting Staff: Alexis Gallo MD. FACR, Neuroradiologist (Accelerator Technician) /ALEXIS CORBETT [facility] Mar 22, 2024 05:56 PM CHEST PORTABLE: HALI TRINIDAD [id number] -1955 F Exm Date: MAR 22, 2024@17:56 Req Phys: MAN ARREDONDO Loc: -[facility] PACT 2 PCP (Req'g Lo Img Loc: OUTSIDE [facility] Service: Unknown Screen: Patient is unable to answer or is unsure Screen Comment: OUTSIDE STUDY (Case [id number] COMPLETE) CHEST PORTABLE (RAD Detailed) CPT:79631 Reason for Study: Exam imported from outside Clinical History: Original Data for Imported Study Patient Name: HALI TRINIDAD Date: 1955 Sex: F Study Date: 12/07/24 Study Time: 05:56:26 Study Description: XR chest 1V portable Referring Physician: ERICA ALATORRE Series 1: 1 SR file, description: FUJI Basic Text SR for HL7 Radiological Report Series 2: 1 CR file, description: XR chest 1V portable Report Status: Electronically Filed Date Reported: APR 14, 2024 Report: Electronically generated report for outside study. Impression: Electronically generated report for outside study. VERIFIED BY: / *ELECTRONICALLY FILED* [facility] Encounter Notes: All associated encounter notes This section contains the clinical notes associated to the Encounter. Date/Time Encounter Note(s) Provider Source Mar 30, 2024 11:27 AM NURSING TRANSFER SUMMARIZATION DISCHARGE NOTE: LOCAL TITLE: SILVI[facility]O DISCHARGE/TRANSFER SUMMARY STL STANDARD TITLE: NURSING TRANSFER SUMMARIZATION DISCHARGE NOTE DATE OF NOTE: MAR 30, 2024@11:27 ENTRY DATE: MAR 30, 2024@11:28:01 AUTHOR: BALAJI ROSE EXP COSIGNER: URGENCY: STATUS: COMPLETED DISCHARGE - TRANSFER SUMMARY Action: Discharge Diagnosis: Last Admission: 03/28/24 3:44:40 pm Admit Dx: WEAKNESS Age: 68 Allergies: AMLODIPINE Patient Condition: Stable Vital Signs: Temperature: 97.7 F [36.5 C] (03/30/2024 09:01) Pulse: 66 (03/30/2024 09:01) Respiration: 18 (03/30/2024 09:01) Blood Pressure: 122/78 (03/30/2024 09:01) Pain: 0 (03/30/2024 09:01) Fall Risk Assessment Score: Fall Risk Level: High Risk = SUICIDE SCREEN = [place] Suicide Severity Rating Scale (C-SSRS) 1. Over the past month, have you wished you were or wished you could go to sleep and not wake up? No 2. Over the past month, have you had any actual thoughts of killing yourself? No 3. Over the past month, have you been thinking about how you might do this? Response not required due to responses to other questions. 4. Over the past month, have you had these thoughts and had some intention of acting on them? Response not required due to responses to other questions. 5. Over the past month, have you started to work out or worked out the details of how to kill yourself? Response not required due to responses to other questions. 6. If yes, at any time in the past month did you intend to carry out this plan? Response not required due to responses to other questions. 7. In your lifetime, have you ever done anything, started to do anything, or prepared to do anything to end your life (for example, collected pills, obtained a gun, gave away valuables, went to the roof but didn't jump)? No 8. If YES, was this within the past 3 months? Response not required due to responses to other questions. C-SSRS Screen is Negative Isolation: No Precautions: Fall Orientation: x3 Hygiene: Self Care Nutrition: Regular diet Special needs: Assistance: Independent Bowel/Bladder: Date of last bowel movement: Mar Defecation: Normal Able to void: YES Continent: YES Catheter: No Wound / Skin Condition: STANDARD OF CARE / PRACTICE IMPLEMENTED: Indicate status at Discharge/Transfer: Flu Shot Given: No Patient refused Pneumococcal Shot Given: No Patient refused MRSA Discharge Swab Done: No Reason: done on admission Discharged/Transfered to: Own home without home care services Accompanied by (Name & Relationship): Next of Kin notified: NO Discharge/Transfer Mode: Wheelchair Discharged/Transferred with: Written Discharge Instructions Return Appointments The [place] was informed of the date and time of his/her follow-up mental health appointments: YES The was provided the opportunity to cancel or change his/her scheduled follow-up mental health appointments: YES The was educated about what to do and who to contact should he/she need to cancel the follow-up mental health appointment: YES Clothing / Valuables returned: Yes Describe: clothing, shoes, cell phone, walker, canvas bag, purse Prosthetics with patient: Dentures/Partials with patient: None Glasses with patient: NA Other: NA Printed MD Instruction sheet with medication list reviewed and given to the patient/caregiver. Patient/Caregiver verifies medication list is complete and accurate. Patient/Caregiver appeared ready for instruction (good eye contact, appropriate questions, active participation, etc) Person(s) who received education: Patient Education Topic/Teaching Needs: Disease/Condition Medication Diet/Nutrition Follow-up Instructions Methods used Included: A copy of the Discharge Instructions Health Summary given to patient/caregiver and signed by patient/guardian. Patient's medications were reviewed and reconciled by discharge team. Teaching outcomes: Fair level of understanding /es/ BALAJI ROSE BSN, RN REGISTERED NURSE Signed: 03/30/2024 11:29 BALAJI ROSE [facility] Mar 30, 2024 11:13 AM DISCHARGE SUMMARY: LOCAL TITLE: Discharge Summary STANDARD TITLE: DISCHARGE SUMMARY DICT DATE: MAR 30, 2024@07:00 ENTRY DATE: MAR 30, 2024@07:00:35 DICTATED BY: REINA PANDEY ATTENDING: CHAIM BROWN URGENCY: routine STATUS: COMPLETED PRINCIPAL DIAGNOSIS: Dehydration SECONDARY DIAGNOSES: Significant Medical Problems PRESENT on Admission: Gout, Hypertension, collagenous colitis, chronic kidney disease Significant Medical Problems NOT PRESENT on Admission: none OPERATIVE/INVASIVE PROCEDURES: None ATTENDING PHYSICIAN: Chaim Brown M.D. BRIEF HISTORY AND BRIEF HOSPITAL COURSE: Ms. 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 Per patient, she has been having falls since 2019. She was evaluated outpatient by Neurology who wanted to workup hyper reflexia, weakness and reason for falls. At [facility], she was admitted under medicine, was found to have poor PO intake and orthostatic hypotension. MRI reviwed by neurology ruled out myelopathy and cord compression. CONDITION ON DISCHARGE: Fair FOLLOW-UP: 04/08/2024 12:00 -DENTAL DDS2 PROC INPATIENT APPOINTMENT 05/16/2024 12:00 [facility]-DENTAL HYG 1 INPATIENT APPOINTMENT 05/20/2024 12:00 [facility]-DENTAL DDS2 PROC INPATIENT APPOINTMENT 05/30/2024 10:00 [facility]-ST CLR VVC PACT 2 PCP INPATIENT APPOINTMENT 06/20/2024 11:00 [facility]-OPTOMETRY 5 INPATIENT APPOINTMENT 08/04/2024 11:40 [facility]-RENAL RAUCHMAN INPATIENT APPOINTMENT 08/11/2024 12:20 [facility]-PHONE GI PRESTI INPATIENT APPOINTMENT 10/28/2024 13:45 [facility] INPATIENT APPOINTMENT 11/26/2024 11:00 [facility]-RENAL NP2 INPATIENT APPOINTMENT NON-VA FOLLOW-UP CARE: None DISCHARGE MEDICATIONS: Active Outpatient Medications (including Supplies): Active [...] TWICE A DAY ACTIVE 13 Total Medications ALLERGIES OR DRUG SENSITIVITIES: AMLODIPINE DIET: Regular diet ACTIVITY: As tolerated INFORMATION REGARDING CONDITION OR PROPER HOME AND/OR WOUND CARE: Not Applicable RETURN TO WORK: Not applicable DISPOSITION: [X} Discharge home [ ] Discharge to home hospice [ ] Transfer to retirement [ ] Transfer to rehab [ ] Transfer to psychiatry [ ] Transfer to Spinal cord injury unit [ ] Transfer to hospice [ ] Transfer to outside facility: [ ] Transfer to outside facility under hospice: [ ] : autopsy approved by Next of Kin [ ] : autopsy not approved by Next of Kin [ ] : 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 [ ] The patient is not competent in the VA sense of the word. TOTAL TIME SPENT FOR FINAL HOSPITAL DISCHARGE: 35 minutes. Verified By MRT/AMITA /sandra/ CHAIM BROWN MD MEDICINE MOD Signed: 03/31/2024 12:07 for REINA PANDEY GLAZE GRINDER /sandra/ CHAIM BROWN MD MEDICINE MOD Cosigned: 03/31/2024 12:07 CHAIM BROWN [facility] Mar 30, 2024 10:20 AM NURSING NOTE: LOCAL TITLE: LAAES NSG IV INSERTION AND MAINTENANCE STANDARD TITLE: NURSING NOTE DATE OF NOTE: MAR 30, 2024@10:20 ENTRY DATE: MAR 30, 2024@10:20:09 AUTHOR: BALAJI ROSE EXP COSIGNER: URGENCY: STATUS: COMPLETED Version 2.2 Charting in accordance with [place] APPROVED [place] O[place]ILLES STANDARD (VAAES) ACUTE INPATIENT/REHABILITATION NURSING ADMISSION SCREENING, ASSESSMENT, AND STANDARDS OF CARE ====== IV Line Insertion and Maintenance ====== ====== Peripheral IV ====== Line #1: Discontinue: Location: Right, Forearm Date/Time: Mar@10:20 Reason for discontinuation: Therapy complete /es/ BALAJI TAVARES RN REGISTERED NURSE Signed: 03/30/2024 10:20 BALAJI ROSE [facility] Mar 30, 2024 09:01 AM NURSING INPATIENT NOTE: LOCAL TITLE: [facility] NURSING FREQUENT DOCUMENTATION STANDARD TITLE: NURSING INPATIENT NOTE DATE OF NOTE: MAR 30, 2024@09:01 ENTRY DATE: MAR 30, 2024@09:01:36 AUTHOR: BALAJI ROSE EXP COSIGNER: URGENCY: STATUS: COMPLETED Version 2.4 Charting in accordance with [place] APPROVED [place]ES STANDARD (VAAES) ACUTE INPATIENT/REHABILITATION NURSING ADMISSION SCREENING, ASSESSMENT, AND STANDARDS OF CARE ==== NATIONAL EARLY WARNING SCORE (NEWS) ==== The following vital measurements were used to complete the NEWS. Measurement DT TEMP PULSE RESP BP POx F(C) (L/MIN)(%) 03/30/2024 09:01 97.7(36.5) 66 18 122/78 99 The NEWS total is 0. 1. Temperature (C/F): Score = 0 36.1 - 38.0 C (96.9 - 100.4 F) 2. Pulse: Score = 0 51-90 3. Respirations: Score = 0 12-20 4. Blood Pressure (Only Systolic BP, mmHg): Score = 0 111-219 5. Pulse Oximetry: Score = 0 96% or greater 6. Supplemental oxygen in use: Score = 0 No 7. AVPU: Score = 0 Alert Patient Status: Remains on unit /es/ BALAJI ROSE BSN, RN REGISTERED NURSE Signed: 03/30/2024 09:02 BALAJI ROSE [facility] Mar 30, 2024 08:28 AM NURSING NOTE: LOCAL TITLE: [facility] SKIN INSPECTION/ASSESSMENT STANDARD TITLE: NURSING NOTE DATE OF NOTE: MAR 30, 2024@08:28 ENTRY DATE: MAR 30, 2024@08:28:29 AUTHOR: BALAJI ROSE EXP COSIGNER: URGENCY: STATUS: COMPLETED Assessment Type: SKIN REINSPECTION/REASSESSMENT SKIN INSPECTION: Skin Color: Usual for ethnicity Skin Temperature: Warm Skin Moisture: Normal Skin Turgor: Elastic (normal/immediate) Sheeba Skin Assessment: The patient's Sheeba Scale Score is 20. The patient is considered not at risk for development of pressure ulcers/injuries. Sensory perception -- ability to respond meaningfully to pressure-related discomfort No impairment. Moisture -- degree to which skin is exposed to moisture Occasionally moist. Activity -- ability to change and control body position Walks occasionally. Mobility -- ability to change and control body position No limitation. Nutrition -- usual food intake patterns Adequate. Friction and shear No apparent problem. INTERVENTIONS: New or changed pressure ulcer/injury interventions or medical condition. Education: Provide patient/caregiver education regarding causes and prevention of pressure ulcers/injuries. Pressure-Redistribution measures: Encourage small, frequent position changes Maximize mobilization: Encourage activity as tolerated Manage nutrition: Encourage eating and assist with meals Monitor fluid/food intake RISK FACTORS THAT INCREASE RISK FOR DEVELOPING PRESSURE INJURIES The patient/resident does not have any additional risk factors. SKIN ALTERATIONS: Pressure Ulcer/Injury Documentation from the past year: No data available SKIN ALTERATIONS: Wound Documentation from the past year: No data available for: Skin Integrity - Wound Skin Integrity - Wound Second Skin Integrity - Wound Third Skin Integrity - Wound Fourth Skin Integrity - Wound Fifth Skin Integrity - Wound Additional SKIN INTEGRITY: Intact /es/ BALAJI TAVARES, RN REGISTERED NURSE Signed: 03/30/2024 08:29 BALAJI ROSE [facility] Mar 30, 2024 08:23 AM NURSING INPATIENT NOTE: LOCAL TITLE: [facility] ACUTE INPATIENT NSG SHIFT ASSESSMENT STANDARD TITLE: NURSING INPATIENT NOTE DATE OF NOTE: MAR 30, 2024@08:23 ENTRY DATE: MAR 30, 2024@08:23:56 AUTHOR: BALAJI ROSE EXP COSIGNER: URGENCY: STATUS: COMPLETED Version 2.2 Charting in accordance with [facility] LAC COURTE OREILLES STANDARD (LAAES) ACUTE INPATIENT/REHABILITATION NURSING ADMISSION SCREENING, ASSESSMENT, AND STANDARDS OF CARE ==== ASSESSMENT ==== ==== HANDOFF ==== Bedside report and handoff completed Safety check completed ==== PAIN ASSESSMENT ==== Patient's acceptable pain goal: 2 Notice pain, does not interfere with activities Are you currently experiencing pain? No: Pain Score: 0 ==== GALVAN FALL SCALE & TIPS PROGRAM ==== Galvan Fall Scale: The Galvan Fall scale was performed and score was 50. This is indicative of high risk for falls. History of falling: immediate or within 3 months? No Secondary diagnosis: Yes Ambulatory aid: Crutches/cane(s)/walker Intravenous therapy/Heparin lock: Yes Gait/Transferring: Normal/bed rest/immobile Mental Status: Oriented to own ability/knows own limitations Fall Tailoring Interventions for Patient Safety (TIPS) Fall TIPS initiated with patient: Yes Interventions: Walking Aids: Walker Assistance out of bed: Call for assistance before getting out of bed Fall TIPS reviewed with patient: Yes Interventions: Walking Aids: Walker Assistance out of bed: Call for assistance before getting out of bed ==== ENVIRONMENTAL SAFETY MANAGEMENT ==== Implemented safety standards of care: -Breeding to unit & environment -Adequate room lighting -Bed in low and locked position -Call light within reach -Personal items within reach -Traffic path in room free of clutter -Non-slip footwear -Upper/half length side rails up for bed mobility -Sensory aids within reach -Encourage patient to utilize sensory support Additional safety measures: Increased frequency of rounding ==== NEUROLOGICAL ==== Neurological Orientation: Oriented x4 Level of Consciousness (AVPU): Alert = Appears aware of and responsive to the environment on their own. Follows commands, opens eyes spontaneously, and tracks objects. Affect/behavior: Cooperative Calm ==== NEUROMUSCULAR/NEUROVASCULAR EXTREMITIES ASSESSMENT ==== Strength: Ab Initio Etl Developer Bilateral: Strong Upper Extremity Bilateral: Full strength Lower Extremity Bilateral: Full strength Sensation: Upper Extremity Sensation Bilateral: Intact Lower Extremity Sensation Bilateral: Intact Temperature: Upper Extremity Temperature Bilateral: Warm Lower Extremity Temperature Bilateral: Warm ==== CARDIOVASCULAR ==== Heart Sounds: Normal (S1S2) Heart Rate/Rhythm (without environmental monitoring specialist): Regular Capillary Refill: All 4 extremities, less than or equal to 3 seconds. Peripheral Pulses: All 4 extremities, 3+ normal. Edema: None ==== RESPIRATORY ==== Respirations: Unlabored Pattern: Regular Breath Sounds Auscultated: Anterior only Left Upper Lobe: Clear Right Upper Lobe: Clear Right Middle Lobe: Clear Left Lower Lobe: Clear Right Lower Lobe: Clear ==== GASTROINTESTINAL ==== Passing flatus Elimination: Continent Abdominal Description: Rounded Palpation: Soft, Non-tender Bowel Sounds: RUQ: Active LUQ: Active RLQ: Active LLQ: Active ==== GENITOURINARY ==== Elimination: Continent === INTEGUMENTARY/SKIN/WOUND - (INCLUDING SHEEBA) SEE NOTE: VAAES SKIN INPECTION/ASSESSMENT === ==== ACTIVITIES OF DAILY LIVING ==== Hygiene ADLs: Oral Care: Non-ventilator patient: Patient teeth brushed: Independently Patient dentures/partial plates cleaned: Independently The was educated that poor oral hygiene increases the risk of hospital acquired pneumonia and dental problems like gingivitis and tooth decay. [place] was educated using their preferred method and verbalized understanding. ==== IV LINES ==== Peripheral IV: Line #1: Assessment: Location: Right, Forearm Gauge: 20 Dressing Condition: Clean, dry, intact Site Condition: No redness, swelling, pain Line Status: Flushed ==== PSYCHOSOCIAL ==== Type of Emotional Support Provided: Treatment discussion, Ventilation of feelings encouraged /es/ BALAJI TAVARES, RN REGISTERED NURSE Signed: 03/30/2024 08:28 BALAJI RSOE [facility] Mar 30, 2024 07:26 AM NURSING INPATIENT NOTE: LOCAL TITLE: [facility] NURSING FREQUENT DOCUMENTATION STANDARD TITLE: NURSING INPATIENT NOTE DATE OF NOTE: MAR 30, 2024@07:26 ENTRY DATE: MAR 30, 2024@07:26:21 AUTHOR: HALI WILSON COSIGNER: URGENCY: STATUS: COMPLETED Version 2.4 Charting in accordance with [place] APPR[place]ED LAC [place] OREILLES STANDARD (LAAES) ACUTE INPATIENT/REHABILITATION NURSING ADMISSION SCREENING, ASSESSMENT, AND STANDARDS OF CARE ==== ACTIVITIES OF DAILY LIVING ==== Hygiene ADLs: Dressing: Upper Body: Independent Lower Body: Independent Eating: Independent Hand Hygiene: Performed post toileting Performed pre meals/snacks Oral Care: Non-ventilator patient: Patient teeth brushed: Independently Personal Care: Independent ===== ACTIVITY/MOBILIZATION ===== Mobility Status: Independent: Able to stand and step without staff assistance Steady standing balance Equipment utilized: Walker Gait: [facility] Level of Mobility achieved this shift: 6 - Walked 10 steps or more (walked to restroom) ==== ENVIRONMENTAL SAFETY MANAGEMENT ==== Implemented safety standards of care: -Breeding to unit & environment -Adequate room lighting -Bed in low and locked position -Call light within reach -Personal items within reach -Traffic path in room free of clutter -Non-slip footwear -Upper/half length side rails up for bed mobility -Sensory aids within reach -Encourage patient to utilize sensory support ==== GENITOURINARY ==== Elimination: Continent /es/ HALI WILSON NA CEO AND CO FOUNDER Signed: 03/30/2024 07:28 HALI WILSON [facility] Mar 30, 2024 06:55 AM PHYSICIAN EDUCATION DISCHARGE NOTE: LOCAL TITLE: DISCHARGE INSTRUCTIONS [facility] STANDARD TITLE: PHYSICIAN EDUCATION DISCHARGE NOTE DATE OF NOTE: MAR 30, 2024@06:55 ENTRY DATE: MAR 30, 2024@06:55:47 AUTHOR: REINA PANDEY COSIGNER: CHAIM BROWN URGENCY: STATUS: COMPLETED DISCHARGE INSTRUCTIONS [facility] Has ADDENDA MEDICATIONS THAT WERE CHANGED: NONE MEDICATIONS THAT WERE STOPPED (AND REASON FOR STOPPING): Atenolol (this medication may cause your blood pressure to drop from a seated to standing position) NEW MEDICATIONS WITH INSTRUCTIONS: NONE Please drink atleast 2-3 jars of water each day( [facility] jars). Kindly eat 3 meals each day. DATE OF ADMISSION: Mar 15:44 DATE OF DISCHARGE: Mar REASON(S) FOR BEING IN THE HOSPITAL: Dear Hali Trinidad, You were admittted to the hospital as your neurologist wanted to assess the reason of your falls. Your MRI ruled out any sinister cause. Based on our labs and physical findings, we belieeve the cause of your falls is due to low food and water intake. Your [facility] medicine [facility] YOUR OUTPATIENT CARE TEAM: Team Information Primary Care Team: GARY WALL PACT 2 PCP *[facility]* PC Provider: MAN ARREDONDO Position: PHYSICIAN FUTURE APPOINTMENTS: 04/08/2024 12:00 [facility]-DENTAL DDS2 PROC INPATIENT APPOINTMENT 05/16/2024 12:00 [facility]-DENTAL HYG 1 INPATIENT APPOINTMENT 05/20/2024 12:00 [facility]-DENTAL DDS2 PROC INPATIENT APPOINTMENT 05/30/2024 10:00 [facility]ST CLR VVC PACT 2 PCP INPATIENT APPOINTMENT 06/20/2024 11:00 [facility]OPTOMETRY 5 INPATIENT APPOINTMENT 08/04/2024 11:40 [facility]RENAL [facility]UCHMAN INPATIENT APPOINTMENT 08/11/2024 12:20 [facility]PHONE GI PRESTI INPATIENT APPOINTMENT 10/28/2024 13:45 [facility] INPATIENT APPOINTMENT 11/26/2024 11:00 [facility]RENAL NP2 INPATIENT APPOINTMENT YOUR KNOWN ALLERGIES: AMLODIPINE CALL YOUR DOCTOR IF YOU HAVE ANY OF THESE PROBLEMS: PHYSICAL ACTIVITY: Activity as tolerated DIET: Oral Nutrition/Diet Instructions Regular Diet: A healthy eating plan will maintain or promote good health. -Consume a diet rich in fruits, vegetables, whole grains, and healthy oils -Choose lean protein sources such as fish, poultry, beans/legumes, and non-fat or low-fat dairy sources. -Limit saturated fat such as fatty cuts of beef, owens, pork, chicken with skin, whole milk, cream, butter -Minimize consumption of sugary drinks, desserts -Limit deep-fried foods and fast foods -Limit the use of added table salts, salt-type seasoning, and processed foods -Speak to a Registered Dietitian about other healthy eating tips and meal planning DEVICES AT DISCHARGE: Not Applicable: The patient should be discharged with no urinary catheter or intravenous access TOBACCO & ALCOHOL: Discharge tobacco cessation medication(s) not indicated due to: Other reason(s) documented by physician/MEDICAL ENGINEER/PA or pharmacist Reason(s): NA Discharge medications for alcohol/drug disorder not offered Reason: NA DISCHARGE INSTRUCTIONAL MATERIALS: CONDITION OF PATIENT AT DISCHARGE: FAIR DISCHARGE DESTINATION: HOME NOTE: If you are having feelings of Depression or Emotional Distress, or feel you just need to talk with someone, please call [phone]), [employer] - Press 1. COPY OF DISCHARGE INSTRUCTIONS: The patient/family understands and will be provided a copy of these discharge instructions. DISCHARGE MEDICATION LIST: Active Outpatient Medications (including Supplies): Active Outpatient Medications Status 1) ALLOPURINOL 100MG TAB TAKE ONE TABLET BY MOUTH ONCE A ACTIVE DAY FOR GOUT. TAKE WITH PLENTY OF WATER. 2) ATORVASTATIN CALCIUM 40MG TAB TAKE ONE-HALF TABLET BY ACTIVE MOUTH EVERY EVENING FOR CHOLESTEROL. REPORT ANY UNEXPLAINED MUSCLE PAIN/WEAKNESS TO PROVIDER. 3) BUDESONIDE 3MG EC CAP TAKE ONE CAPSULE BY MOUTH EVERY ACTIVE MORNING 4) CALCITRIOL 0.25MCG CAP TAKE ONE CAPSULE BY MOUTH ACTIVE THREE TIMES PER WEEK 5) CALCIUM CARB 500MG (CA 200MG) CHEW TAB CHEW AND ACTIVE SWALLOW ONE TABLET BY MOUTH THREE TIMES A DAY WITH MEALS AND CHEW AND SWALLOW ONE TABLET AT BEDTIME 6) CETIRIZINE HCL 10MG TAB TAKE ONE-HALF TABLET BY MOUTH ACTIVE ONCE A DAY FOR ALLERGY SYMPTOMS. NEW DOSE - RENAL ADJUSTED 7) FERROUS GLUCONATE 324MG TAB TAKE ONE TABLET BY MOUTH ACTIVE ONCE A DAY FOR IRON SUPPLEMENTATION. 8) LOPERAMIDE HCL 2MG CAP TAKE ONE CAPSULE BY MOUTH ACTIVE EVERY DAY NEEDED FOR DIARRHEA. 9) MELATONIN 3MG CAP/TAB TAKE TWO CAP/TAB BY MOUTH AT ACTIVE BEDTIME FOR SLEEP 10) MOXIFLOXACIN (EQV-VIGAMOX) 0.5% OPH SOLN INSTILL 1 HOLD DROP IN RIGHT EYE FOUR TIMES A DAY FOR BACTERIAL EYE INFECTION Active Non-VA Medications Status 1) Non-VA FISH OIL 1000MG (500MG DHA/EPA) CAP 1000MG BY ACTIVE MOUTH TWICE A DAY 2) Non-VA MAGNESIUM OXIDE TAB 250MG BY MOUTH TWICE A DAY ACTIVE 13 Total Medications Active Remote Medications: No Active Remote Medications for this patient /ronald PANDEY GLAZE GRINDER Signed: 03/30/2024 08:22 /sandra/ CHAIM BROWN MD MEDICINE MOD Cosigned: 03/30/2024 23:27 03/30/2024 ADDENDUM STATUS: COMPLETED I interviewed and examined the patient today with the housestaff. I reviewed the laboratory, EKG, and radiograpic findings. I reviewed the note created by Dr. Reina Pandey, and agree in general with the data, synthesis, and plan as outlined in the note and discussed on rounds. /ronald BROWN MD MEDICINE MOD Signed: 03/30/2024 23:28 REINA PANDEY [facility] Mar 30, 2024 05:48 AM CARDIOLOGY NOTE: LOCAL TITLE: CARDIOLOGY TELEMETRY ST[facility] STANDARD TITLE: CARDIOLOGY NOTE DATE OF NOTE: MAR 30, 2024@05:48 ENTRY DATE: MAR 30, 2024@05:49:04 AUTHOR: DERIC DAVIS EXP COSIGNER: URGENCY: STATUS: COMPLETED Telemetry reviewed: Normal Sinus Rhythm, Sinus Bradycardia PURCHASING DEPARTMENT CLERK #: [id number] RATE: 56-64 bpm SHIFT: 11-7 Shift COMMENT: /ronald DAVIS MEDICAL ARBOREAL SCIENTIST - TELEMETRY Signed: 03/30/2024 05:51 DERIC DAVIS [facility] Mar 30, 2024 04:39 AM NURSING INPATIENT NOTE: LOCAL TITLE: [facility] ACUTE INPATIENT NSG SHIFT ASSESSMENT STANDARD TITLE: NURSING INPATIENT NOTE DATE OF NOTE: MAR 30, 2024@04:39 ENTRY DATE: MAR 30, 2024@04:39:18 AUTHOR: ASA MENDOZA JR EXP COSIGNER: URGENCY: STATUS: COMPLETED Version 2.2 Charting in accordance with [place] APPROVED LAC COURTE OREILLES STANDARD (LAAES) ACUTE INPATIENT/REHABILITATION NURSING ADMISSION SCREENING, ASSESSMENT, AND STANDARDS OF CARE ==== REASSESSMENT ==== ==== HANDOFF ==== Safety check completed ==== ENVIRONMENTAL SAFETY MANAGEMENT ==== Implemented safety standards of care: -Breeding to unit & environment -Adequate room lighting -Bed in low and locked position -Call light within reach -Personal items within reach -Traffic path in room free of clutter -Non-slip footwear -Upper/half length side rails up for bed mobility -Sensory aids within reach -Encourage patient to utilize sensory support Additional safety measures: Close to nurses station Increased frequency of rounding Mobility support items readily available ==== RESPIRATORY ==== Respirations: Unlabored Pattern: Regular === INTEGUMENTARY/SKIN/WOUND - (INCLUDING SHEEBA) SEE NOTE: VAAES SKIN INPECTION/ASSESSMENT === /sandra/ ASA MENDOZA JR RN REGISTERED NURSE Signed: 03/30/2024 04:40 ASA MENDOZA JR [facility] Mar 30, 2024 12:43 AM NURSING NOTE: LOCAL TITLE: [facility] SKIN INSPECTION/ASSESSMENT STANDARD TITLE: NURSING NOTE DATE OF NOTE: MAR 30, 2024@00:43 ENTRY DATE: MAR 30, 2024@00:44:24 AUTHOR: ASA MENDOZA JR EXP COSIGNER: URGENCY: STATUS: COMPLETED Assessment Type: SKIN REINSPECTION/REASSESSMENT SKIN INSPECTION: Skin Color: Usual for ethnicity Skin Temperature: Warm Skin Moisture: Normal Skin Turgor: Elastic (normal/immediate) Sheeba Skin Assessment: The patient's Sheeba Scale Score is 19. The patient is considered not at risk for development of pressure ulcers/injuries. Sensory perception -- ability to respond meaningfully to pressure-related discomfort Slightly limited. Moisture -- degree to which skin is exposed to moisture Rarely moist. Activity -- ability to change and control body position Walks occasionally. Mobility -- ability to change and control body position Slightly limited. Nutrition -- usual food intake patterns Adequate. Friction and shear No apparent problem. INTERVENTIONS: The pressure injury interventions were not needed - patient/resident is not at risk. RISK FACTORS THAT INCREASE RISK FOR DEVELOPING PRESSURE INJURIES: The patient/resident has the following: Device(s): (nasogastric tubes, oxygen tubing, urinary catheters, cell phone etc.) Comment: telemetry Potential compromised nutritional status SKIN ALTERATIONS: Pressure Ulcer/Injury Documentation from the past year: No data available SKIN ALTERATIONS: Wound Documentation from the past year: No data available for: Skin Integrity - Wound Skin Integrity - Wound Second Skin Integrity - Wound Third Skin Integrity - Wound Fourth Skin Integrity - Wound Fifth Skin Integrity - Wound Additional SKIN INTEGRITY: Intact /sandra/ ASA MENDOZA JR, RN REGISTERED NURSE Signed: 03/30/2024 00:47 ASA MENDOZA JR [facility] Mar 29, 2024 10:29 PM NURSING INPATIENT NOTE: LOCAL TITLE: [facility] NURSING FREQUENT DOCUMENTATION STANDARD TITLE: NURSING INPATIENT NOTE DATE OF NOTE: MAR 29, 2024@22:29 ENTRY DATE: MAR 29, 2024@22:29:56 AUTHOR: ASA MENDOZA JR EXP COSIGNER: URGENCY: STATUS: COMPLETED Version 2.4 Charting in accordance with [facility] LAC [facility]E OREILLES STANDARD ([facility]) ACUTE INPATIENT/REHABILITATION NURSING ADMISSION SCREENING, ASSESSMENT, AND STANDARDS OF CARE ==== NATIONAL EARLY WARNING SCORE (NEWS) ==== The following vital measurements were used to complete the NEWS. Measurement DT TEMP PULSE RESP BP POx F(C) (L/MIN)(%) 03/29/2024 21:09 97.9(36.6) 63 20 147/83 99 The NEWS total is 0. 1. Temperature (C/F): Score = 0 36.1 - 38.0 C (96.9 - 100.4 F) 2. Pulse: Score = 0 51-90 3. Respirations: Score = 0 12-20 4. Blood Pressure (Only Systolic BP, mmHg): Score = 0 111-219 5. Pulse Oximetry: Score = 0 96% or greater 6. Supplemental oxygen in use: Score = 0 No 7. AVPU: Score = 0 Alert Patient Status: Remains on unit /sandra/ ASA WEST JR RN REGISTERED NURSE Signed: 03/29/2024 22:31 ASA MENDOZA JR [facility] Mar 29, 2024 09:54 PM CARDIOLOGY NOTE: LOCAL TITLE: CARDIOLOGY TELEMETRY STL STANDARD TITLE: CARDIOLOGY NOTE DATE OF NOTE: MAR 29, 2024@21:54 ENTRY DATE: MAR 29, 2024@21:54:09 AUTHOR: ANA LAURA SANDY EXP COSIGNER: URGENCY: STATUS: COMPLETED Telemetry reviewed: Normal Sinus Rhythm, Sinus Bradycardia PURCHASING DEPARTMENT CLERK #: [id number] RATE: 59-85 SHIFT: 3-11 Shift COMMENT: /sandra/ ANA LAURA SANDY [employer] EKG Signed: 03/29/2024 21:55 ANA LAURA SANDY [facility] Mar 29, 2024 08:20 PM NURSING INPATIENT NOTE: LOCAL TITLE: [facility] ACUTE INPATIENT NSG SHIFT ASSESSMENT STANDARD TITLE: NURSING INPATIENT NOTE DATE OF NOTE: MAR 29, 2024@20:20 ENTRY DATE: MAR 29, 2024@20:20:37 AUTHOR: ASA MENDOZA JR EXP COSIGNER: URGENCY: STATUS: COMPLETED Version 2.2 Charting in accordance with [place] APPR[place]ED [place] OREILLES STANDARD ([facility]) ACUTE INPATIENT/REHABILITATION NURSING ADMISSION SCREENING, ASSESSMENT, AND STANDARDS OF CARE ==== REASSESSMENT ==== ==== HANDOFF ==== Bedside report and handoff completed Safety check completed ==== PAIN ASSESSMENT ==== Patient's acceptable pain goal: 0 No pain Are you currently experiencing pain? No: Pain Score: 0 ==== GALVAN FALL SCALE & TIPS PROGRAM ==== Galvan Fall Scale: The Galvan Fall scale was performed and score was 100. This is indicative of high risk for falls. History of falling: immediate or within 3 months? Yes Secondary diagnosis: Yes Ambulatory aid: Crutches/cane(s)/walker Intravenous therapy/Heparin lock: Yes Gait/Transferring: Weakness Mental Status: Overestimates/forgets limitations Fall Tailoring Interventions for Patient Safety (TIPS) Fall TIPS initiated with patient: Yes Interventions: Communicate recent fall or risk of harm Walking Aids: Walker Toileting method: Assist to bathroom Fall TIPS reviewed with patient: Yes Interventions: Communicate recent fall or risk of harm Walking Aids: Walker Toileting method: Assist to bathroom ==== ENVIRONMENTAL SAFETY MANAGEMENT ==== Implemented safety standards of care: -Breeding to unit & environment -Adequate room lighting -Bed in low and locked position -Call light within reach -Personal items within reach -Traffic path in room free of clutter -Non-slip footwear -Upper/half length side rails up for bed mobility -Sensory aids within reach -Encourage patient to utilize sensory support Additional safety measures: Close to nurses station Increased frequency of rounding Mobility support items readily available Supplemental Environmental Safety Management: Suicide Screen - [place] Suicide Severity Rating Scale (C-SSRS): [place] Suicide Severity Rating Scale (C-SSRS): 1. Over the past month, have you wished you were or wished you could go to sleep and not wake up? No 2. Over the past month, have you had any actual thoughts of killing yourself? No 3. Over the past month, have you been thinking about how you might do this? Response not required due to responses to other questions. 4. Over the past month, have you had these thoughts and had some intention of acting on them? Response not required due to responses to other questions. 5. Over the past month, have you started to work out or worked out the details of how to kill yourself? Response not required due to responses to other questions. 6. If yes, at any time in the past month did you intend to carry out this plan? Response not required due to responses to other questions. 7. In your lifetime, have you ever done anything, started to do anything, or prepared to do anything to end your life (for example, collected pills, obtained a gun, gave away valuables, went to the roof but didn't jump)? No 8. If YES, was this within the past 3 months? Response not required due to responses to other questions. C-SSRS Screen is Negative ==== NEUROLOGICAL ==== Neurological Orientation: Oriented x4 Level of Consciousness (AVPU): Alert = Appears aware of and responsive to the environment on their own. Follows commands, opens eyes spontaneously, and tracks objects. Affect/behavior: Cooperative Calm ==== NEUROMUSCULAR/NEUROVASCULAR EXTREMITIES ASSESSMENT ==== Strength: Ab Initio Etl Developer Bilateral: Moderate Upper Extremity Bilateral: Full strength Lower Extremity Bilateral: Full strength Sensation: Upper Extremity Sensation Bilateral: Intact Lower Extremity Sensation Bilateral: Intact Temperature: Upper Extremity Temperature Bilateral: Warm Lower Extremity Temperature Bilateral: Warm ==== CARDIOVASCULAR ==== Heart Rate/Rhythm (without environmental monitoring specialist): Regular Cardiac Rhythm Analysis: Normal Sinus Rhythm Telemetry Transmitter Pack #: 108 Capillary Refill: All 4 extremities, less than or equal to 3 seconds. Peripheral Pulses: All 4 extremities, 3+ normal. Edema: None Cardiovascular - Embolism Prevention: Not Applied: Patient declined Comment: heparin sq ==== RESPIRATORY ==== Respirations: Unlabored Pattern: Regular Breath Sounds Auscultated: Anterior only Left Upper Lobe: Clear Right Upper Lobe: Clear Right Middle Lobe: Clear Left Lower Lobe: Clear Right Lower Lobe: Clear ==== GASTROINTESTINAL ==== Last bowel movement: 12/13/24 Bowel movement reported by patient-unwitnessed Elimination: Continent Abdominal Description: Rounded Palpation: Soft, Non-tender Bowel Sounds: RUQ: Active LUQ: Active RLQ: Active LLQ: Active ==== GENITOURINARY ==== Elimination: Continent === INTEGUMENTARY/SKIN/WOUND - (INCLUDING SHEEBA) SEE NOTE: VAAES SKIN INPECTION/ASSESSMENT === ==== ACTIVITIES OF DAILY LIVING ==== Hygiene ADLs: Dressing: Upper Body: Independent Lower Body: Independent Eating: Independent Foot Care: Inspection Hand Hygiene: Patient declined Oral Care: Non-ventilator patient: Patient teeth brushed: Independently The [place] was educated that poor oral hygiene increases the risk of hospital acquired pneumonia and dental problems like gingivitis and tooth decay. [place] was educated using their preferred method and verbalized understanding. Pericare: Independent Personal Care: Independent Toileting: Independent ==== MOBILITY ==== Mobility Status: Independent: Equipment utilized: Walker Gait: Steady ==== IV LINES ==== Peripheral IV: Line #1: Assessment: Location: Right, Forearm Gauge: 20 Dressing Condition: Clean, dry, intact Transparent dressing Site Condition: No redness, swelling, pain Line Status: Patent/infusing ==== PSYCHOSOCIAL ==== Type of Emotional Support Provided: 1:1 discussion, Hospitalization discussion, Ventilation of feelings dania /sandra/ ASA MENDOZA JR, RN REGISTERED NURSE Signed: 03/29/2024 20:30 ASA MENDOZA JR [facility] Mar 29, 2024 04:30 PM NURSING INPATIENT NOTE: LOCAL TITLE: [facility] ACUTE INPATIENT NSG SHIFT ASSESSMENT STANDARD TITLE: NURSING INPATIENT NOTE DATE OF NOTE: MAR 29, 2024@16:30 ENTRY DATE: MAR 29, 2024@16:30:32 AUTHOR: BALAJI ROSE COSIGNER: URGENCY: STATUS: COMPLETED Version 2.2 Charting in accordance with [facility]AC [facility] OREILLES STANDARD ([facility]) ACUTE INPATIENT/REHABILITATION NURSING ADMISSION SCREENING, ASSESSMENT, AND STANDARDS OF CARE ==== REASSESSMENT ==== ==== PAIN ASSESSMENT ==== Patient's acceptable pain goal: 1 Hardly notice pain Are you currently experiencing pain? No: Pain Score: 0 ==== NEUROLOGICAL ==== Neurological Orientation: Oriented x4 Level of Consciousness (AVPU): Alert = Appears aware of and responsive to the environment on their own. Follows commands, opens eyes spontaneously, and tracks objects. Affect/behavior: Cooperative Calm ==== NEUROMUSCULAR/NEUROVASCULAR EXTREMITIES ASSESSMENT ==== Strength: Ab Initio Etl Developer Bilateral: Moderate Upper Extremity Bilateral: Full strength Lower Extremity Bilateral: Full strength Sensation: Upper Extremity Sensation Bilateral: Intact Lower Extremity Sensation Bilateral: Intact Temperature: Upper Extremity Temperature Bilateral: Warm Lower Extremity Temperature Bilateral: Warm ==== CARDIOVASCULAR ==== Heart Sounds: Normal (S1S2) Cardiac Rhythm Analysis: Normal Sinus Rhythm Telemetry Transmitter Pack #: 108 Capillary Refill: All 4 extremities, less than or equal to 3 seconds. Peripheral Pulses: All 4 extremities, 3+ normal. Edema: None ==== RESPIRATORY ==== Respirations: Unlabored Pattern: Regular Breath Sounds Auscultated: Anterior and posterior Left Upper Lobe: Clear Right Upper Lobe: Clear Right Middle Lobe: Clear Left Lower Lobe: Clear Right Lower Lobe: Clear ==== GASTROINTESTINAL ==== Elimination: Continent Abdominal Description: Rounded Palpation: Soft, Non-tender Bowel Sounds: RUQ: Active LUQ: Active RLQ: Active LLQ: Active ==== GENITOURINARY ==== Elimination: Continent /es/ BALAJI ROSE BSN, RN REGISTERED NURSE Signed: 03/29/2024 16:31 BALAJI ROSE [facility] Mar 29, 2024 02:38 PM CARDIOLOGY NOTE: LOCAL TITLE: CARDIOLOGY TELEMETRY STL STANDARD TITLE: CARDIOLOGY NOTE DATE OF NOTE: MAR 29, 2024@14:38 ENTRY DATE: MAR 29, 2024@14:38:17 AUTHOR: USHA MATA EXP COSIGNER: URGENCY: STATUS: COMPLETED Telemetry reviewed: Normal Sinus Rhythm PURCHASING DEPARTMENT CLERK #: [id number] RATE: 66 SHIFT: 7-3 Shift COMMENT: /sandra/ USHA MATA JR. MEDICAL HOUSE CLEANER Signed: 03/29/2024 14:42 USHA MATA [facility] Mar 29, 2024 10:45 AM NURSING NOTE: LOCAL TITLE: [facility] SKIN INSPECTION/ASSESSMENT STANDARD TITLE: NURSING NOTE DATE OF NOTE: MAR 29, 2024@10:45 ENTRY DATE: MAR 29, 2024@10:46:06 AUTHOR: TEETEE FUNG EXP COSIGNER: URGENCY: STATUS: COMPLETED Assessment Type: SKIN REINSPECTION/REASSESSMENT SKIN INSPECTION: Skin Color: Usual for ethnicity Skin Temperature: Warm Skin Moisture: Normal Skin Turgor: Elastic (normal/immediate) Sheeba Skin Assessment: The patient's Sheeba Scale Score is 22. The patient is considered not at risk for development of pressure ulcers/injuries. Sensory perception -- ability to respond meaningfully to pressure-related discomfort No impairment. Moisture -- degree to which skin is exposed to moisture Rarely moist. Activity -- ability to change and control body position Walks frequently. Mobility -- ability to change and control body position No limitation. Nutrition -- usual food intake patterns Adequate. Friction and shear No apparent problem. INTERVENTIONS: The pressure injury interventions were not needed - patient/resident is not at risk. RISK FACTORS THAT INCREASE RISK FOR DEVELOPING PRESSURE INJURIES The patient/resident does not have any additional risk factors. SKIN ALTERATIONS: Pressure Ulcer/Injury Documentation from the past year: No data available SKIN ALTERATIONS: Wound Documentation from the past year: No data available for: Skin Integrity - Wound Skin Integrity - Wound Second Skin Integrity - Wound Third Skin Integrity - Wound Fourth Skin Integrity - Wound Fifth Skin Integrity - Wound Additional Localized abnormality: Bruising: Location(s): Bilateral upper and lower extremities /sandra/ TEETEE FUNG RN REGISTERED NURSE Signed: 03/29/2024 10:51 TEETEE FUNG [facility] Mar 29, 2024 10:25 AM NURSING INPATIENT NOTE: LOCAL TITLE: [facility] ACUTE INPATIENT NSG SHIFT ASSESSMENT STANDARD TITLE: NURSING INPATIENT NOTE DATE OF NOTE: MAR 29, 2024@10:25 ENTRY DATE: MAR 29, 2024@10:26:01 AUTHOR: TEETEE FUNG EXP COSIGNER: URGENCY: STATUS: COMPLETED Version 2.2 Charting in accordance with [facility] OREILLES STANDARD ([facility]) ACUTE INPATIENT/REHABILITATION NURSING ADMISSION SCREENING, ASSESSMENT, AND STANDARDS OF CARE ==== ASSESSMENT ==== ==== HANDOFF ==== Bedside report and handoff completed Safety check completed ==== PAIN ASSESSMENT ==== Patient's acceptable pain goal: 1 Hardly notice pain Are you currently experiencing pain? No: Pain Score: 0 ==== GALVAN FALL SCALE & TIPS PROGRAM ==== Galvan Fall Scale: The Galvan Fall scale was performed and score was 85. This is indicative of high risk for falls. History of falling: immediate or within 3 months? Yes Secondary diagnosis: Yes Ambulatory aid: Crutches/cane(s)/walker Intravenous therapy/Heparin lock: Yes Gait/Transferring: Weakness Mental Status: Oriented to own ability/knows own limitations Fall Tailoring Interventions for Patient Safety (TIPS) Fall TIPS initiated with patient: Yes Interventions: Communicate recent fall or risk of harm Walking Aids: Walker Assistance out of bed: Call for assistance before getting out of bed Fall TIPS reviewed with patient: Yes Interventions: Communicate recent fall or risk of harm Walking Aids: Walker Assistance out of bed: Call for assistance before getting out of bed ==== ENVIRONMENTAL SAFETY MANAGEMENT ==== Implemented safety standards of care: -Breeding to unit & environment -Adequate room lighting -Bed in low and locked position -Call light within reach -Personal items within reach -Traffic path in room free of clutter -Non-slip footwear -Upper/half length side rails up for bed mobility -Sensory aids within reach -Encourage patient to utilize sensory support ==== NEUROLOGICAL ==== Neurological Orientation: Oriented x4 Level of Consciousness (AVPU): Alert = Appears aware of and responsive to the environment on their own. Follows commands, opens eyes spontaneously, and tracks objects. Affect/behavior: Cooperative Calm ==== NEUROMUSCULAR/NEUROVASCULAR EXTREMITIES ASSESSMENT ==== Strength: Ab Initio Etl Developer Bilateral: Moderate Upper Extremity Bilateral: Full strength Lower Extremity Bilateral: Full strength Sensation: Upper Extremity Sensation Bilateral: Intact Lower Extremity Sensation Bilateral: Intact Temperature: Upper Extremity Temperature Bilateral: Warm Lower Extremity Temperature Bilateral: Warm ==== CARDIOVASCULAR ==== Heart Sounds: Normal (S1S2) Cardiac Rhythm Analysis: Normal Sinus Rhythm Sinus Bradycardia Telemetry Transmitter Pack #: 108 Capillary Refill: All 4 extremities, less than or equal to 3 seconds. Peripheral Pulses: All 4 extremities, 3+ normal. Edema: None ==== RESPIRATORY ==== Respirations: Unlabored Pattern: Regular Breath Sounds Auscultated: Anterior and posterior Left Upper Lobe: Clear Right Upper Lobe: Clear Right Middle Lobe: Clear Left Lower Lobe: Clear Right Lower Lobe: Clear ==== GASTROINTESTINAL ==== Elimination: Continent Abdominal Description: Rounded Palpation: Soft, Non-tender Bowel Sounds: RUQ: Active LUQ: Active RLQ: Active LLQ: Active ==== GENITOURINARY ==== Elimination: Continent === INTEGUMENTARY/SKIN/WOUND - (INCLUDING SHEEBA) SEE NOTE: VAAES SKIN INPECTION/ASSESSMENT === ==== ACTIVITIES OF DAILY LIVING ==== Hygiene ADLs: Eating: Independent Oral Care: Non-ventilator patient: Patient teeth brushed: Independently [facility] [place] was educated that poor oral hygiene increases the risk of hospital acquired pneumonia and dental problems like gingivitis and tooth decay. [place] was educated using their preferred method and verbalized understanding. Toileting: Independent ==== MOBILITY ==== Mobility Status: Independent: Equipment utilized: Walker Gait: Steady ==== IV LINES ==== Peripheral IV: Line #1: Assessment: Location: Right, Forearm Gauge: 20 Dressing Condition: Clean, dry, intact Transparent dressing Site Condition: No redness, swelling, pain Line Status: Flushed ==== PSYCHOSOCIAL ==== Type of Emotional Support Provided: 1:1 discussion, Treatment discussion, Ventilation of feelings encouraged /sandra/ TEETEE FUNG RN REGISTERED NURSE Signed: 03/29/2024 10:42 TEETEE FUNG [facility] Mar 29, 2024 09:57 AM NURSING INPATIENT NOTE: LOCAL TITLE: [facility] NURSING FREQUENT DOCUMENTATION STANDARD TITLE: NURSING INPATIENT NOTE DATE OF NOTE: MAR 29, 2024@09:57 ENTRY DATE: MAR 29, 2024@09:57:04 AUTHOR: TEETEE FUNG EXP COSIGNER: URGENCY: STATUS: COMPLETED Version 2.4 Charting in accordance with [place] APPROVED [place] STANDARD ([facility]) ACUTE INPATIENT/REHABILITATION NURSING ADMISSION SCREENING, ASSESSMENT, AND STANDARDS OF CARE ==== NATIONAL EARLY WARNING SCORE (NEWS) ==== The following vital measurements were used to complete the NEWS. Measurement DT TEMP PULSE RESP BP POx F(C) (L/MIN)(%) 03/29/2024 09:41 97.9(36.6) 60 18 144/75 99 The NEWS total is 0. 1. Temperature (C/F): Score = 0 36.1 - 38.0 C (96.9 - 100.4 F) 2. Pulse: Score = 0 51-90 3. Respirations: Score = 0 12-20 4. Blood Pressure (Only Systolic BP, mmHg): Score = 0 111-219 5. Pulse Oximetry: Score = 0 96% or greater 6. Supplemental oxygen in use: Score = 0 No 7. AVPU: Score = 0 Alert /sandra/ TEETEE FUGN RN REGISTERED NURSE Signed: 03/29/2024 09:57 TEETEE FUNG [facility] Mar 29, 2024 08:28 AM INTERNAL MEDICINE INPATIENT NOTE: LOCAL TITLE: MEDICINE GENERAL INPATIENT NOTE STANDARD TITLE: INTERNAL MEDICINE INPATIENT NOTE DATE OF NOTE: MAR 29, 2024@08:28 ENTRY DATE: MAR 29, 2024@08:29:31 AUTHOR: REINA PANDEY COSIGNER: CHAIM BROWN URGENCY: STATUS: COMPLETED MEDICINE GENERAL INPATIENT NOTE Has ADDENDA INTERVAL HISTORY Patient doing well this am. Did not experinece any lightheadedness or falls when she got up to use the bathroom. No N/V/V headache, SOB HOSPITAL COURSE MsMelanie Trinidad is a 68/o F with PMH of HTN, CKD4 (due to nephrocalcinosis, analgesic use), collagenous colitis, tubular adenoma, OA, hypoparathyroidism, and hearing loss presented to ED for the evaluation of falls and balance issues. Per patient, she has been having falls since 2019. She was evaluated outpatient by Neurology who wanted to workup hyper reflxia, weakness and reaason for falls. At [facility], she was admitted under medicine, was found to have poor PO intake and orthostatic hypotension. MRI to be reviewed by neurology. ACTIVE INPATIENT MEDICATIONS 1) ALLOPURINOL TAB PO QDAILY 100MG 2) ATORVASTATIN TAB PO QPM 20MG 3) BUDESONIDE CAP,EC PO QAM 3MG 4) CALCITRIOL CAP,ORAL PO 3XWEEK 0.25MCG 5) FERROUS GLUCONATE TAB PO QDAILY 324MG 6) MELATONIN CAP/TAB PO QHS 6MG 7) LOPERAMIDE CAP,ORAL PO DAILY PRN FOR DIARRHEA 8) HEPARIN (PORK) INJ,SOLN SC Q8H 5000UNIT/1ML 9) CALCIUM CARBONATE TAB,CHEWABLE PO TID W/MEALS 500MG 10) CALCIUM CARBONATE TAB,CHEWABLE PO BEDTIME 500MG Life Sustaining Treatment Orders VITAL SIGNS Pulse: 60 (03/29/2024 05:28) BP: 144/82 (03/29/2024 05:28) RESP: 20 (03/29/2024 05:28) Pain: 0 (03/29/2024 05:28) Temp: 98.2 F [36.8 C] (03/29/2024 05:28) Weight: 128.2 lb [58.15 kg] (03/25/2024 10:39) PHYSICAL EXAM: Skin: Multiple bruises in different stages of healing Lungs: B/L air entry present Cardiovascular: S1 S2 present Abdominal: flat Neuro: power UL and LL : 5/5, sensation intaact, cerebellar exam normal Psych: normal affect Extremities: multiple charcot teresa nodes from chronic OA present RECENT LABS BASIC METABOLIC PANEL: SODIUM 144 mEq/L 03/28/2024 18:11 POTASSIUM 3.8 mEq/L 03/28/2024 18:11 CHLORIDE 106 mEq/L 03/28/2024 18:11 UREA NITROGEN 38.2 H mg/dL 03/28/2024 18:11 CREATININE 2.68 H mg/dL 03/28/2024 18:11 CALCIUM 11.1 H mg/dL 03/28/2024 18:11 CARBON DIOXIDE 24 mEq/L 03/28/2024 18:11 GLUCOSE 78 mg/dL 03/28/2024 18:11 EGFR (CKD-EPI 2020) 18.8 03/28/2024 18:11 WBC: 5.9 10*3/uL (03/29/24 06:00) HCT: 31.8 % L (03/29/24 06:00) HGB: HGB 9.9 L g/dL 03/29/2024 06:00 Plt: PLT 203 10*3/uL 03/29/2024 06:00 CK-MB: ____ TROPONIN I HISTORY: No data available OTHER DATA ASSESSMENT & PLAN 1. Recurrent falls, weakness This is a 68 year old who pressents [facility] complaints of recurrent falls, balance issues and fatigue. She recently was evaluated by neurology who suspect Myelopathy vs neoplastic etiology vs metabolic. Hx: Falls x 4 years, associated with palpitations. Has poor PO intake. Patient has been on oral budesonide for collagenous colitis Exam: fall in systolic of 20mmhg with imabalance Labs: B12 normal, Hb 10, UA non revealing, AM cortisol: 14- folate normal and methylmalonic acid levels, normal, HbA1c 5.5, TSH normal Imaging: MRI brain: changes in the supratentorial white matter can certainly be due to chronic microvascular ischemic disease. The presence of possible hemosiderin suggests possible amyloid deposition. MRI thoracic spine: Broad-based right-sided disc protrusion at C3-4. Assesment: Differentials include: orthostatic hypotension 2/2 to dehydration, UTI, anemia, adrenal insufficiency (fatigue, weight loss) Per neurology, other differenials for her weakness include include: Myelopathy vs neoplastic etiology vs metabolic. Plan: 1. Telemetry - recommend q4H neurochecks and viatls. - PT/OT. - Neurology will continue to follow. 2. Appreciate neuro reccs 3. LR bolus f/bd5lr 2. JT on CKD Cr 03/28: 2.5 Unclear baseline Plan: 1. 1 litre LR f/b d5 LR @75cc/hr 2. Monitor lytes 3. Anemia Anemia in CKD plan: continue home iron 4. HTN Plan - hold current regimen of atenolol 50mg qday 5. Secondary Hyperparathyroidism in Ckd Plan: calcium carbonate 4x a day per recommendations 6. Hyperlipidemia Conintue home atorvastatin 7. Gout: Continue home allopuronol 8. Collagenous colitis: - Biopsy proven Plan: continue budesonide and loperamide Dispo: pending PT recs Prophylaxis: SCD's /sandra/ REINA PANDEY GLAZE GRINDER Signed: 03/29/2024 11:07 /sandra/ CHAIM BROWN MD MEDICINE MOD Cosigned: 03/30/2024 23:27 03/30/2024 ADDENDUM STATUS: COMPLETED I interviewed and examined the patient today with the housestaff. I reviewed the laboratory, EKG, and radiograpic findings. I reviewed the note created by Dr. Reina Pandey, and agree in general with the data, synthesis, and plan as outlined in the note and discussed on rounds. /sandra/ CHAIM BROWN MD MEDICINE MOD Signed: 03/30/2024 23:28 REINA PANDEY [facility] Mar 29, 2024 06:20 AM CARDIOLOGY NOTE: LOCAL TITLE: CARDIOLOGY TELEMETRY STL STANDARD TITLE: CARDIOLOGY NOTE DATE OF NOTE: MAR 29, 2024@06:20 ENTRY DATE: MAR 29, 2024@06:20:49 AUTHOR: DERIC DAVIS EXP COSIGNER: URGENCY: STATUS: COMPLETED Telemetry reviewed: Normal Sinus Rhythm, Sinus Bradycardia PURCHASING DEPARTMENT CLERK #: [id number] RATE: 57-73 bpm SHIFT: 11-7 Shift COMMENT: /ronald DAVIS MEDICAL ARBOREAL SCIENTIST - TELEMETRY Signed: 03/29/2024 06:26 DERIC DAVIS [facility] Mar 29, 2024 02:19 AM NURSING INPATIENT NOTE: LOCAL TITLE: [facility] ACUTE INPATIENT NSG SHIFT ASSESSMENT STANDARD TITLE: NURSING INPATIENT NOTE DATE OF NOTE: MAR 29, 2024@02:19 ENTRY DATE: MAR 29, 2024@02:19:30 AUTHOR: ASA MENDOZA JR EXP COSIGNER: URGENCY: STATUS: COMPLETED Version 2.2 Charting in accordance with [place] APPR[place]ED [place] O[place] STANDARD (LAAES) ACUTE INPATIENT/REHABILITATION NURSING ADMISSION SCREENING, ASSESSMENT, AND STANDARDS OF CARE ==== REASSESSMENT ==== ==== HANDOFF ==== Safety check completed ==== ENVIRONMENTAL SAFETY MANAGEMENT ==== Implemented safety standards of care: -Breeding to unit & environment -Adequate room lighting -Bed in low and locked position -Call light within reach -Personal items within reach -Traffic path in room free of clutter -Non-slip footwear -Upper/half length side rails up for bed mobility -Sensory aids within reach -Encourage patient to utilize sensory support Additional safety measures: Close to nurses station Increased frequency of rounding Mobility support items readily available ==== RESPIRATORY ==== Respirations: Unlabored Pattern: Regular === INTEGUMENTARY/SKIN/WOUND - (INCLUDING SHEEBA) SEE NOTE: VAAES SKIN INPECTION/ASSESSMENT === /sandra/ ASA MENDOZA JR RN REGISTERED NURSE Signed: 03/29/2024 02:20 ASA MENDOZA JR [facility] Mar 29, 2024 01:33 AM NURSING NOTE: LOCAL TITLE: [facility] SKIN INSPECTION/ASSESSMENT STANDARD TITLE: NURSING NOTE DATE OF NOTE: MAR 29, 2024@01:33 ENTRY DATE: MAR 29, 2024@01:33:58 AUTHOR: ASA MENDOZA JR EXP COSIGNER: URGENCY: STATUS: COMPLETED Assessment Type: SKIN REINSPECTION/REASSESSMENT SKIN INSPECTION: Skin Color: Usual for ethnicity Skin Temperature: Warm Skin Moisture: Normal Skin Turgor: Elastic (normal/immediate) Sheeba Skin Assessment: The patient's Sheeba Scale Score is 19. The patient is considered not at risk for development of pressure ulcers/injuries. Sensory perception -- ability to respond meaningfully to pressure-related discomfort Slightly limited. Moisture -- degree to which skin is exposed to moisture Rarely moist. Activity -- ability to change and control body position Walks occasionally. Mobility -- ability to change and control body position Slightly limited. Nutrition -- usual food intake patterns Adequate. Friction and shear No apparent problem. INTERVENTIONS: No change in previous interventions as listed below 03/28/2024 Vaaes Pressure Injury Int Not Needed RISK FACTORS THAT INCREASE RISK FOR DEVELOPING PRESSURE INJURIES: The patient/resident has the following: Known vascular surgery or vascular disease Device(s): (nasogastric tubes, oxygen tubing, urinary catheters, cell phone etc.) Comment: telemetry SKIN ALTERATIONS: Pressure Ulcer/Injury Documentation from the past year: No data available SKIN ALTERATIONS: Wound Documentation from the past year: No data available for: Skin Integrity - Wound Skin Integrity - Wound Second Skin Integrity - Wound Third Skin Integrity - Wound Fourth Skin Integrity - Wound Fifth Skin Integrity - Wound Additional Localized abnormality: Bruising: Location(s): bilateral upper and lower extremities /sandra/ ASA MENDOZA JR, RN REGISTERED NURSE Signed: 03/29/2024 01:36 ASA MENDOZA JR [facility] Mar 29, 2024 01:25 AM NURSING INPATIENT NOTE: LOCAL TITLE: [facility] NURSING FREQUENT DOCUMENTATION STANDARD TITLE: NURSING INPATIENT NOTE DATE OF NOTE: MAR 29, 2024@01:25 ENTRY DATE: MAR 29, 2024@01:25:42 AUTHOR: ASA MENDOZA JR EXP COSIGNER: URGENCY: STATUS: COMPLETED Version 2.4 Charting in accordance with [facility] OREILLES STANDARD ([facility]) ACUTE INPATIENT/REHABILITATION NURSING ADMISSION SCREENING, ASSESSMENT, AND STANDARDS OF CARE ==== NATIONAL EARLY WARNING SCORE (NEWS) ==== The vital signs below were used for scoring: Temperature: 97.9 Pulse: 72 Blood Pressure: 147/79 Respiration: 18 Pulse Oximetry: 96 The NEWS total is 0. 1. Temperature (C/F): Score = 0 36.1 - 38.0 C (96.9 - 100.4 F) 2. Pulse: Score = 0 51-90 3. Respirations: Score = 0 12-20 4. Blood Pressure (Only Systolic BP, mmHg): Score = 0 111-219 5. Pulse Oximetry: Score = 0 96% or greater 6. Supplemental oxygen in use: Score = 0 No 7. AVPU: Score = 0 Alert Patient Status: Remains on unit /ronald MENDOZA JR, RN REGISTERED NURSE Signed: 03/29/2024 01:29 ASA MENDOZA JR [facility] Mar 28, 2024 08:56 PM NURSING INPATIENT NOTE: LOCAL TITLE: [facility] ACUTE INPATIENT NSG SHIFT ASSESSMENT STANDARD TITLE: NURSING INPATIENT NOTE DATE OF NOTE: MAR 28, 2024@20:56 ENTRY DATE: MAR 28, 2024@20:56:33 AUTHOR: ASA MENDOZA JR EXP COSIGNER: URGENCY: STATUS: COMPLETED Version 2.2 Charting in accordance with [facility] OREILLES STANDARD ([facility]) ACUTE INPATIENT/REHABILITATION NURSING ADMISSION SCREENING, ASSESSMENT, AND STANDARDS OF CARE ==== REASSESSMENT ==== ==== HANDOFF ==== Bedside report and handoff completed Safety check completed ==== PAIN ASSESSMENT ==== Patient's acceptable pain goal: 0 No pain Are you currently experiencing pain? No: Pain Score: 0 ==== GALVAN FALL SCALE & TIPS PROGRAM ==== Galvan Fall Scale: The Galvan Fall scale was performed and score was 100. This is indicative of high risk for falls. History of falling: immediate or within 3 months? Yes Secondary diagnosis: Yes Ambulatory aid: Crutches/cane(s)/walker Intravenous therapy/Heparin lock: Yes Gait/Transferring: Weakness Mental Status: Overestimates/forgets limitations Fall Tailoring Interventions for Patient Safety (TIPS) Fall TIPS initiated with patient: Yes Interventions: Communicate recent fall or risk of harm Walking Aids: Walker Toileting method: Assist to bathroom Fall TIPS reviewed with patient: Yes Interventions: Communicate recent fall or risk of harm Walking Aids: Walker ==== ENVIRONMENTAL SAFETY MANAGEMENT ==== Implemented safety standards of care: -Breeding to unit & environment -Adequate room lighting -Bed in low and locked position -Call light within reach -Personal items within reach -Traffic path in room free of clutter -Non-slip footwear -Upper/half length side rails up for bed mobility -Sensory aids within reach -Encourage patient to utilize sensory support ==== NEUROLOGICAL ==== Neurological Orientation: Oriented x4 Level of Consciousness (AVPU): Alert = Appears aware of and responsive to the environment on their own. Follows commands, opens eyes spontaneously, and tracks objects. Affect/behavior: Cooperative Calm ==== NEUROMUSCULAR/NEUROVASCULAR EXTREMITIES ASSESSMENT ==== Strength: Ab Initio Etl Developer Bilateral: Moderate Upper Extremity Bilateral: Full strength Lower Extremity Bilateral: Full strength Sensation: Upper Extremity Sensation Bilateral: Intact Lower Extremity Sensation Bilateral: Intact Temperature: Upper Extremity Temperature Bilateral: Warm Lower Extremity Temperature Bilateral: Warm ==== CARDIOVASCULAR ==== Heart Sounds: Normal (S1S2) Heart Rate/Rhythm (without environmental monitoring specialist): Regular Bradycardia Cardiac Rhythm Analysis: Normal Sinus Rhythm Sinus Bradycardia Telemetry Transmitter Pack #: [id number] Capillary Refill: All 4 extremities, less than or equal to 3 seconds. Peripheral Pulses: All 4 extremities, 3+ normal. Edema: None Cardiovascular - Embolism Prevention: Not Applied: Patient declined Comment: heparin sq ==== RESPIRATORY ==== Respirations: Unlabored Pattern: Regular Breath Sounds Auscultated: Anterior only Left Upper Lobe: Clear Right Upper Lobe: Clear Right Middle Lobe: Clear Left Lower Lobe: Clear Right Lower Lobe: Clear ==== GASTROINTESTINAL ==== Last bowel movement: 03/28/24 Bowel movement reported by patient-unwitnessed Passing flatus Elimination: Continent Abdominal Description: Flat Palpation: Soft, Non-tender Bowel Sounds: RUQ: Active LUQ: Active RLQ: Active LLQ: Active ==== GENITOURINARY ==== Elimination: Continent === INTEGUMENTARY/SKIN/WOUND - (INCLUDING SHEEBA) SEE NOTE: VAAES SKIN INPECTION/ASSESSMENT === ==== ACTIVITIES OF DAILY LIVING ==== Hygiene ADLs: Dressing: Upper Body: Independent Lower Body: Independent Eating: Independent Foot Care: Inspection Hand Hygiene: Patient declined Oral Care: Non-ventilator patient: Patient teeth brushed: Independently [facility] [place] was educated that poor oral hygiene increases the risk of hospital acquired pneumonia and dental problems like gingivitis and tooth decay. was educated using their preferred method and verbalized understanding. Pericare: Independent Personal Care: Independent ==== MOBILITY ==== Mobility Goal Setting: [facility] Level of Mobility: Mobility Status: Gait: Unsteady ==== IV LINES ==== Peripheral IV: Line #1: Assessment: Location: Right, Forearm Gauge: 20 Dressing Condition: Clean, dry, intact Transparent dressing Site Condition: No redness, swelling, pain Line Status: Capped ==== PSYCHOSOCIAL ==== Type of Emotional Support Provided: 1:1 discussion, Ventilation of feelings encouraged /sandra/ ASA MENDOZA JR, RN REGISTERED NURSE Signed: 03/28/2024 21:05 ASA MENDOZA JR [facility] Mar 28, 2024 07:55 PM CARDIOLOGY NOTE: LOCAL TITLE: CARDIOLOGY TELEMETRY ST STANDARD TITLE: CARDIOLOGY NOTE DATE OF NOTE: MAR 28, 2024@19:55 ENTRY DATE: MAR 28, 2024@19:55:11 AUTHOR: KRISHNA OG COSIGNER: URGENCY: STATUS: COMPLETED Telemetry reviewed: Normal Sinus Rhythm, Sinus Bradycardia PURCHASING DEPARTMENT CLERK #: [id number] RATE: 50s60s SHIFT: 3-11 Shift COMMENT: /sandra/ KRISHNA OG PRESSURE CONTROLLER Signed: 03/28/2024 19:55 KRISHNA OG [facility] Mar 28, 2024 06:13 PM NURSING INPATIENT NOTE: LOCAL TITLE: [facility] ACUTE INPATIENT NSG SHIFT ASSESSMENT STANDARD TITLE: NURSING INPATIENT NOTE DATE OF NOTE: MAR 28, 2024@18:13 ENTRY DATE: MAR 28, 2024@18:13:44 AUTHOR: TEETEE FUNG COSIGNER: URGENCY: STATUS: COMPLETED Version 2.2 Charting in accordance with [facility] OREILLES STANDARD ([facility]) ACUTE INPATIENT/REHABILITATION NURSING ADMISSION SCREENING, ASSESSMENT, AND STANDARDS OF CARE ==== ASSESSMENT ==== ==== HANDOFF ==== Comment: admission from ER ==== PAIN ASSESSMENT ==== Patient's acceptable pain goal: 1 Hardly notice pain Are you currently experiencing pain? Yes - DVPRS scale used to assess Location: left shoulder [employer] Pain Rating Scale (DVPRS): 3 Sometimes distracts me Pain Score: 3 ==== GALVAN FALL SCALE & TIPS PROGRAM ==== Galvan Fall Scale: The Galvan Fall scale was performed and score was 85. This is indicative of high risk for falls. History of falling: immediate or within 3 months? Yes Secondary diagnosis: Yes Ambulatory aid: Crutches/cane(s)/walker Intravenous therapy/Heparin lock: Yes Gait/Transferring: Weakness Mental Status: Oriented to own ability/knows own limitations Fall Tailoring Interventions for Patient Safety (TIPS) Fall TIPS initiated with patient: Yes Interventions: Communicate recent fall or risk of harm Walking Aids: Walker Assistance out of bed: Call for assistance before getting out of bed Fall TIPS reviewed with patient: Yes Interventions: Communicate recent fall or risk of harm Walking Aids: Walker Assistance out of bed: Call for assistance before getting out of bed ==== ENVIRONMENTAL SAFETY MANAGEMENT ==== Implemented safety standards of care: -Breeding to unit & environment -Adequate room lighting -Bed in low and locked position -Call light within reach -Personal items within reach -Traffic path in room free of clutter -Non-slip footwear -Upper/half length side rails up for bed mobility -Sensory aids within reach -Encourage patient to utilize sensory support ==== NEUROLOGICAL ==== Neurological Orientation: Oriented x4 Level of Consciousness (AVPU): Alert = Appears aware of and responsive to the environment on their own. Follows commands, opens eyes spontaneously, and tracks objects. Affect/behavior: Cooperative Calm ==== NEUROMUSCULAR/NEUROVASCULAR EXTREMITIES ASSESSMENT ==== Strength: Ab Initio Etl Developer Bilateral: Moderate Upper Extremity Bilateral: Full strength Lower Extremity Bilateral: Full strength Sensation: Upper Extremity Sensation Bilateral: Intact Lower Extremity Sensation Bilateral: Intact ==== CARDIOVASCULAR ==== Heart Sounds: Normal (S1S2) Cardiac Rhythm Analysis: Normal Sinus Rhythm Telemetry Transmitter Pack #: [id number] Capillary Refill: All 4 extremities, less than or equal to 3 seconds. Peripheral Pulses: All 4 extremities, 3+ normal. Edema: None ==== RESPIRATORY ==== Respirations: Unlabored Pattern: Regular Breath Sounds Auscultated: Anterior and posterior Left Upper Lobe: Clear Right Upper Lobe: Clear Right Middle Lobe: Clear Left Lower Lobe: Clear Right Lower Lobe: Clear ==== GASTROINTESTINAL ==== Last bowel movement: 03/28/2024 Elimination: Continent Abdominal Description: Rounded Palpation: Soft, Non-tender Bowel Sounds: RUQ: Active LUQ: Active RLQ: Active LLQ: Active ==== GENITOURINARY ==== Elimination: Continent === INTEGUMENTARY/SKIN/WOUND - (INCLUDING SHEEBA) SEE NOTE: VAAES SKIN INPECTION/ASSESSMENT === ==== ACTIVITIES OF DAILY LIVING ==== Hygiene ADLs: Dressing: Upper Body: Independent Lower Body: Independent Toileting: Independent ==== MOBILITY ==== Mobility Status: Independent: Able to stand and step without staff assistance Equipment utilized: Walker Gait: Steady ==== IV LINES ==== Peripheral IV: Present on admission: Line #1: Location: Right, Forearm Gauge: 20 ==== PSYCHOSOCIAL ==== Type of Emotional Support Provided: 1:1 discussion, Treatment discussion, Ventilation of feelings encouraged /sandra/ TEETEE FUNG RN REGISTERED NURSE Signed: 03/28/2024 18:20 TEETEE FUNG [facility] Mar 28, 2024 06:10 PM NURSING NOTE: LOCAL TITLE: [facility] SKIN INSPECTION/ASSESSMENT STANDARD TITLE: NURSING NOTE DATE OF NOTE: MAR 28, 2024@18:10 ENTRY DATE: MAR 28, 2024@18:10:41 AUTHOR: TEETEE FUNG EXP COSIGNER: URGENCY: STATUS: COMPLETED Assessment Type: SKIN REINSPECTION/REASSESSMENT SKIN INSPECTION: Skin Color: Usual for ethnicity Skin Temperature: Warm Skin Moisture: Normal Skin Turgor: Elastic (normal/immediate) Sheeba Skin Assessment: The patient's Sheeba Scale Score is 21. The patient is considered not at risk for development of pressure ulcers/injuries. Sensory perception -- ability to respond meaningfully to pressure-related discomfort No impairment. Moisture -- degree to which skin is exposed to moisture Rarely moist. Activity -- ability to change and control body position Walks frequently. Mobility -- ability to change and control body position Slightly limited. Nutrition -- usual food intake patterns Adequate. Friction and shear No apparent problem. INTERVENTIONS: The pressure injury interventions were not needed - patient/resident is not at risk. RISK FACTORS THAT INCREASE RISK FOR DEVELOPING PRESSURE INJURIES The patient/resident does not have any additional risk factors. SKIN ALTERATIONS: Pressure Ulcer/Injury Documentation from the past year: No data available SKIN ALTERATIONS: Wound Documentation from the past year: No data available for: Skin Integrity - Wound Skin Integrity - Wound Second Skin Integrity - Wound Third Skin Integrity - Wound Fourth Skin Integrity - Wound Fifth Skin Integrity - Wound Additional SKIN INTEGRITY: Intact Localized abnormality: Bruising: Location(s): bilateral upper and lower extremities. /ronald FUNG RN REGISTERED NURSE Signed: 03/28/2024 18:12 TEETEE FUNG [facility] Mar 28, 2024 06:05 PM NURSING NOTE: LOCAL TITLE: [facility] PERSONAL EFFECTS STL STANDARD TITLE: NURSING NOTE DATE OF NOTE: MAR 28, 2024@18:05 ENTRY DATE: MAR 28, 2024@18:05:54 AUTHOR: TEETEE FUNG EXP COSIGNER: URGENCY: STATUS: COMPLETED PERSONAL EFFECTS Hazardous Check: Advised of prohibited hazardous items, Denies hazardous items, No hazardous items observed Medication Check: Denies medication on person Prosthetic Check: Glasses, Hearing Aids, Walker only right hearing aid Personal Items: Patient/Family advised that [facility] not responsible for loss of any personal effects or valuables., Patient/Family advised of locker availability., Patient chooses to keep belongings at bedside., Patient valuables observed: Patient Funds Disposition: [facility] with 4 credit cards and $27 - witness CÉSAR Roman Patient Valuables Observed: walker, right hearing aid, purse, wallet, toiletrees, cellphone, socks, underwear, coat, pants, shoes /ronald FUNG RN REGISTERED NURSE Signed: 03/28/2024 18:08 TEETEE FUNG [facility] Mar 28, 2024 06:04 PM NURSING TREATMENT PLAN NOTE: LOCAL TITLE: [facility] PLAN OF CARE STANDARD TITLE: NURSING TREATMENT PLAN NOTE DATE OF NOTE: MAR 28, 2024@18:04 ENTRY DATE: MAR 28, 2024@18:04:07 AUTHOR: TEETEE FUNG EXP COSIGNER: URGENCY: STATUS: COMPLETED [place] PLAN OF CARE Has ADDENDA Plan of Care and Discharge Plan (nurse) TREATMENT PLAN Significant other involved in treatment plan and discharge planning No Patient involved in making decisions about their care, treatment and plan for discharge Yes Date: Mar Is the patient an elopement risk: No Does the patient have potential or actual alteration in skin integrity? No. Is patient at risk for aspiration related to signs/symptoms of dysphagia? No. Is the patient a fall risk? Yes. NURSING DIAGNOSIS: Falls Potential/Actual Injury Goals: Prior to discharge, patient will:--Injury due to fall will be minimized during hospital stay, --Verbalize safety measures to lower risk of fall/injury (lock w/c, use hand rails, ask for assistance) Mar, --Identify factor(s) that may increase risk of fall before discharge, --Maintain or preserve physical mobility during hospital stay Does patient have pain and/or chest pain? No. /sandra/ TEETEE FUNG RN REGISTERED NURSE Signed: 03/28/2024 18:05 03/29/2024 ADDENDUM STATUS: COMPLETED The Nursing Care Plan has been reviewed. Progress on the Goals/Outcomes is as follows: pt progressing towards goals Discharge Planning: Assessment of patient/family's ability to manage care requirement post-discharge: GOOD Need identified at this time for referrals/resources post-discharge: UNCERTAIN Comment: pending further assessment and treatment Nursing Diagnosis: Injury, Actual/Potential Goals/Outcomes: Remains free from injury or sustains no new injury, Verbalizes and demonstrates actions to prevent injury Interventions:Assess for changes in mental, physiological and cognitive status q shift., Assess and provide for comfort (including pain, sleep, hydration, nutrition) q 2 hours and PRN., Check patient for incontinence and/or need for toileting q 2 hours and PRN. Interventions: Provide a safe environment for prevention of injury. Bed locked and in low position at all times., Siderails up, if indicated., Call light, water and personal care items within easy reach., Urinal within easy reach., Adequate lighting provided., Room and rene kept free of clutter and obstacles. Interventions(Patient Factors):Oriented to surroundings., Nurse call system explained with correct return demonstration., Assistive devices within reach (glasses, hearing aids, walker, etc)., Patient encouraged to wear non-skid footwear., Patient encouraged to call for assistance if needed. Inverventions (Communication): Note Fall Risk status on kardex or other nursing hand off communication tool for example: rene pass., Update Fall Risk Assessment Score upon patient condition change, transfer, 30 day increment and post fall. Educational needs: Fall prevention instruction Stay seated until free of dizziness or light headedness before standing after bed rest to minimize orthostasis., Avoid bending or stooping., Discuss the effect of medications on mobility and balance., Discuss the important of taking medications as prescribed., Discuss personal safety measures., Discuss and or demonstrate how to use assistive devices., Discuss and or demonstrate wheelchair use, for example: lock brakes during transfers in and out of bed. This patient problem has been resolved/stabilized. Nursing Diagnosis: Infection, Actual/Potential Goals/Outcomes: 1. Remains free from infection or acquires no new infection., 2. Verbalizes and demonstrates actions to decrease spread of infection. Interventions: Monitor vital signs, including respiratory pattern/breath sounds, Provide adequate hydration and nutrition I&O q 4 Activity: Turn/reposition q 2 hours. Respiratory Care: effective position/pattern for coughing Educational Needs: Infection prevention/care instruction This patient problem has been resolved/stabilized. Goals have been mutually set with patient. /sandra/ ASA MENDOZA JR RN REGISTERED NURSE Signed: 03/29/2024 01:49 03/30/2024 ADDENDUM STATUS: COMPLETED The Nursing Care Plan has been reviewed. Progress on the Goals/Outcomes is as follows: pt progressiing towards goals Discharge Planning: Assessment of patient/family's ability to manage care requirement post-discharge: GOOD Need identified at this time for referrals/resources post-discharge: UNCERTAIN Comment: pending further assessment and treatment Nursing Diagnosis: Injury, Actual/Potential Goals/Outcomes: Remains free from injury or sustains no new injury, Verbalizes and demonstrates actions to prevent injury Interventions:Assess for changes in mental, physiological and cognitive status q shift., Assess and provide for comfort (including pain, sleep, hydration, nutrition) q 2 hours and PRN., Check patient for incontinence and/or need for toileting q 2 hours and PRN. Interventions: Provide a safe environment for prevention of injury. Bed locked and in low position at all times., Siderails up, if indicated., Call light, water and personal care items within easy reach., Urinal within easy reach., Adequate lighting provided., Room and rene kept free of clutter and obstacles. Interventions(Patient Factors):Oriented to surroundings., Nurse call system explained with correct return demonstration., Assistive devices within reach (glasses, hearing aids, walker, etc)., Patient encouraged to wear non-skid footwear., Patient encouraged to call for assistance if needed. Inverventions (Communication): Indicate Fall Risk status on caregiver's assignment sheet., Update Fall Risk Assessment Score upon patient condition change, transfer, 30 day increment and post fall. Educational needs: Fall prevention instruction Stay seated until free of dizziness or light headedness before standing after bed rest to minimize orthostasis., Avoid bending or stooping., Discuss the effect of medications on mobility and balance., Discuss the important of taking medications as prescribed., Discuss personal safety measures., Discuss and or demonstrate how to use assistive devices., Discuss and or demonstrate wheelchair use, for example: lock brakes during transfers in and out of bed. This patient problem has been resolved/stabilized. Nursing Diagnosis: Health Maintenance, Altered Goals/Expected Outcomes: Sustains no harm or injury., Performs health maintenance activities according to level of ability Interventions: Determine capability to maintain health, degree of motivation, and level of dependence., Determine degree of support available from family or others., Identify sensory deficits needed to comply with health maintenance activities., Identify and psychomotor skills needed to comply with health maintenance activities., Assist in performing health maintenance activities and instruct in specific skills needed. , Discuss health maintenance goals with patient/family., Identify community/social resources available. Education: Provide relevant information related to: This patient problem has been resolved/stabilized. Goals have been mutually set with patient. /sandra/ ASA MENDOZA JR RN REGISTERED NURSE Signed: 03/30/2024 01:01 TEETEE FUNG [facility] Mar 28, 2024 05:50 PM NURSING ADMISSION EVALUATION NOTE: LOCAL TITLE: [facility] ACUTE INPATIENT NSG ADMISSION SCREEN STANDARD TITLE: NURSING ADMISSION EVALUATION NOTE DATE OF NOTE: MAR 28, 2024@17:50 ENTRY DATE: MAR 28, 2024@17:50:16 AUTHOR: TEETEE FUNG EXP COSIGNER: URGENCY: STATUS: COMPLETED === ALLERGY/ADVERSE DRUG REACTION (ADR) REVIEW (MRT5) === FACILITY ALLERGY/ADR -------- [facility] NO KNOWN ALLERGIES [facility] AMLODIPINE Allergy/Adverse Drug Reaction Review to be conducted by: Nurse: Results of Allergy/ADR Review: Allergy/Adverse Drug Reaction list confirmed. == MEDICATION REVIEW (MRR1) == Did patient bring medication(s) from home? No == GENERAL INFORMATION == Admission information given by: Patient Is there a legal guardian/conservator? No Preferred language for discussing healthcare: Czech Preferred mode of communication: Verbal Items at Bedside: Visual Aids: Standard Glasses Hearing Aid(s): Right Only Mobility device: walker === INFECTIOUS DISEASE RISK SCREEN === Travel Screen: Have you traveled within the [place] within the last 21 days? No Have you traveled outside the [place] within the last 21 days? No Within the last 14 days, have you had: No known exposure Other Exposure to Infectious Disease: No known exposure Patient reported the following symptoms: No Symptoms Present History of Multiple Drug Resistant Organism (MDRO): No === NUTRITION SCREENING === Malnutrition Screening Weight (Previous 6 months): Measurement DT WEIGHT LB(KG)[BMI] 03/25/2024 10:39 128.2(58.15)[22] Lost weight recently without trying: No (0 points) Have you been eating poorly because of decreased appetite? No (0 points) Total Score: 0 Other Nutrition Screening Questions: The patient does not report any concerns with their teeth that would make it difficult to eat. The patient does not report overeating to the point of feeling sick or making themselves vomit. The patient denies gaining 10 lbs.(4.5 kgs) or more in the past 3 months without trying. The patient denies having any food allergies, intolerance, special dietary needs, or ethnic, cultural or presybeterian preferences that would affect their dietary needs. Food Insecurity Screening Within the past 12 months, you worried whether your food would run out before you got money to buy more. Never true Within the past 12 months, the food you bought just did not last you and you did not have the money to get more. Never true Food Insecurity Disposition: == RISK SCREENINGS == Alcohol Screen: Screen to be completed by: Nurse: SCREEN FOR ALCOHOL (AUDIT-C) An alcohol screening test (AUDIT-C) was negative (score=0). 1. How often did you have a drink containing alcohol in the past year? Consider a drink to be a 12 ounce can or bottle of regular beer, 8 ounces of malt liquor, a 5 ounce glass of table wine, or a 1.5 ounce shot of liquor (like scotch, gin, or vodka). Never 2. How many drinks containing alcohol did you have on a typical day when you were drinking in the past year? Response not required due to responses to other questions. 3. How often did you have 4 or more drinks on one occasion in the past year? Response not required due to responses to other questions. *Does the patient consume alcohol? No Tobacco Use: Former - tobacco user Do you currently or have you ever used alternative nicotine products? No Substance Use Assessment: *Do you use any recreational drugs or narcotics (prescription or non-prescription)? No === RISK OF WANDERING === The patient does not have a history of wandering. The patient does not have a history of elopement. The patient is not expressing a desire to leave. = SUICIDE SCREEN = Result of C-SSRS screener done was NEGATIVE. C-SSRS Screen is Negative == EXPOSURE TO VIOLENCE AND ABUSE PRE-SCREEN == Are you worried for your safety, that you will be hurt or harmed? No Has anyone tried to force you to sign papers or use your money against your will? No == POST TRAUMATIC STRESS DISORDER CARE CONSIDERATIONS == To minimize a startle response, what is your preference on how best to awaken you? No preference === REPRODUCTIVE & SEXUAL HEALTH === Do you have any sexual or reproductive concerns you would like your healthcare team to be aware of? No = SPIRITUALITY = Are there presybeterian practices or spiritual concerns you want the social work program coordinator, your provider, and other health care team members to know? No == ANTICIPATED DISCHARGE NEEDS == Where do you live? Other: Comment: Senior citizen complex Method of transportation upon discharge: Private Vehicle: Comment: brother Are there any anticipated barriers to discharge? No = EDUCATIONAL NEEDS/LEARNING STYLE = Barriers to learning: None evident Patient learning style preferences: None == VISITOR INFORMATION == Will you have a primary support person while in the hospital? Yes: Relationship to patient: Brother Visitor Name: Contact Number: Patient's Visitor Restriction preferences: No Privacy Review: ==== GALVAN FALL SCALE & TIPS PROGRAM ==== Galvan Fall Scale: The Galvan Fall scale was performed and score was 85. This is indicative of high risk for falls. History of falling: immediate or within 3 months? Yes Secondary diagnosis: Yes Ambulatory aid: Crutches/cane(s)/walker Intravenous therapy/Heparin lock: Yes Gait/Transferring: Weakness Mental Status: Oriented to own ability/knows own limitations Fall Tailoring Interventions for Patient Safety (TIPS) Fall TIPS initiated with patient: Yes Interventions: Communicate recent fall or risk of harm Walking Aids: Walker Assistance out of bed: Call for assistance before getting out of bed ==== PAIN ASSESSMENT ==== Patient's acceptable pain goal: 1 Hardly notice pain Are you currently experiencing pain? Yes - DVPRS scale used to assess Location: left shoulder Defense and Veterans Pain Rating Scale (DVPRS): 3 Sometimes distracts me Pain Score: 3 /es/ TEETEE FUNG RN REGISTERED NURSE Signed: 03/28/2024 18:03 TEETEE FUNG [facility] Mar 28, 2024 04:42 PM NURSING INPATIENT NOTE: LOCAL TITLE: [facility] [place] NURSING FREQUENT DOCUMENTATION STANDARD TITLE: NURSING INPATIENT NOTE DATE OF NOTE: MAR 28, 2024@16:42 ENTRY DATE: MAR 28, 2024@16:42:29 AUTHOR: TEETEE FUNG EXP COSIGNER: URGENCY: STATUS: COMPLETED Version 2.4 Charting in accordance with [facility]ILLES STANDARD (LAAES) ACUTE INPATIENT/REHABILITATION NURSING ADMISSION SCREENING, ASSESSMENT, AND STANDARDS OF CARE ==== NATIONAL EARLY WARNING SCORE (NEWS) ==== The following vital measurements were used to complete the NEWS. Measurement DT TEMP PULSE RESP BP POx F(C) (L/MIN)(%) 03/28/2024 16:41 97.7(36.5) 69 18 164/92 96 The NEWS total is 0. 1. Temperature (C/F): Score = 0 36.1 - 38.0 C (96.9 - 100.4 F) 2. Pulse: Score = 0 51-90 3. Respirations: Score = 0 12-20 4. Blood Pressure (Only Systolic BP, mmHg): Score = 0 111-219 5. Pulse Oximetry: Score = 0 96% or greater 6. Supplemental oxygen in use: Score = 0 No 7. AVPU: Score = 0 Alert /sandra/ TEETEE FUNG RN REGISTERED NURSE Signed: 03/28/2024 16:43 TEETEE FUNG [facility] Mar 28, 2024 04:00 PM ADMINISTRATIVE NOTE: LOCAL TITLE: ADMINISTRATIVE STL STANDARD TITLE: ADMINISTRATIVE NOTE DATE OF NOTE: MAR 28, 2024@16:00 ENTRY DATE: MAR 28, 2024@16:00:55 AUTHOR: MCKENNA ALVAREZ EXP COSIGNER: URGENCY: STATUS: COMPLETED SPOKE WITH MED CLINICAL REVIEWER Reina Pandey.INFORMED PROVIDER PT HAS MADE IT TO THE FLOOR IN ROOM 663-1. /sandra/ MCKENNA SIMMONS Signed: 03/28/2024 16:01 Receipt Acknowledged By: 03/29/2024 16:41 /sandra/ DAVID QUIGLEY CUPOLA MELTER DISPLAY MAKER 03/28/2024 20:52 /sandra/ MCKENNA WARD [facility]
--- OUTSIDE RECORDS SUMMARY | 2024-11-30 14:51 | XMS_ITS ---
Author Name [facility] [place] [facility] [place] Address [address] [place] [address] Care Team Providers Care Linotype Worker Name Role Phone MARIA ELENA MAN Primary Care Provider Unavailabl e Insurance Providers: [...] PRESCRIPT ION NONE Mar 16, 2006 NONE [id number] MALAVE PATIENT AETNA [facility] PREFERRED PROVIDER ORGANIZAT ION (PPO) DEPAR TMENT OF DEFEN S Mar 16, 2006 [id number] SHELBY BRA PATIENT MEDICARE (WNR) MEDICARE (M) PART B Nov 14, 2020 PART B [id number] SHELBY BRA PATIENT MEDICARE (WNR) MEDICARE (M) PART A Nov 14, 2020 PART A [id number] [place],DE BRA PATIENT Selected Encounter This section includes the information on record at [place] for the Encounter. 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 Date/Time Primary/Secondary Diagnosis Diagnosis Name Provider Source Mar 29, 2024 11:46 AM PRIMARY Spiritual or shinto counseling PHANI KIDD [facility] Plan of Treatment: Future Appointments (+ 6 months) and Future Tests (+/- 45 days) The Plan of Treatment section includes future care activities for the patient from all [place] treatmentfacilities. This section includes future appointments and future orders which are active, pending or scheduled. Future Appointments This section includes appointments that were scheduled to occur 6 months from the date of the Encounter, up to a maximum of 20 appointments. The data comes from all [place] treatment facilities. Appointment Date/Time Appointment Type Appointme nt Facility Name Apr 02, 2024 10:00 AM AMBULATORY - MEDICINE [facility] Apr 14, 2024 02:30 PM AMBULATORY - MEDICINE [facility] Apr 30, 2024 02:00 PM AMBULATORY - NONE [facility] May 06, 2024 10:30 AM AMBULATORY - NONE . [facility] May 30, 2024 10:00 AM AMBULATORY - MEDICINE [facility] May 30, 2024 01:30 PM [facility]ULATORY - NONE [facility] Jun 13, 2024 09:00 AM AMBULATORY - SURGERY [facility] Jun 20, 2024 11:00 AM AMBULATORY - SURGERY [facility] Jul 09, 2024 01:00 PM AMBULATORY - SURGERY [facility] Jul 18, 2024 11:40 AM AMBULATORY - MEDICINE . [facility] Jul 29, 2024 12:00 PM AMBULATORY - NONE [facility] Aug 11, 2024 12:20 PM AMBULATORY - MEDICINE [facility] September 09, 2024 12:00 PM AMBULATORY - NONE [facility] Active, Pending, and Scheduled Orders This section includes a listing of several types of active, pending, and scheduled orders, including clinic medications orders, diagnostic test orders, procedure orders and consult orders; where the start date of the order is 45 days before the date of the Encounter or 45 days after the date of theEncounter. The data comes from all [facility] facilities. Test Date/Time Test Type Test Details Facility Name Mar 25, 2024 12:00 AM Laboratory - Chemi stry Order URINALYSIS (STL-PB) URINE [facility] Mar 25, 2024 12:00 AM Laboratory - Microbiology Order C&S URINE URINE,CLEAN CATCH [facility] Mar 28, 2024 11:15 AM Laboratory - Chemi stry Order COPPER BLOOD IN AM WC [facility] Lab Results: +/- 30 days of the encounter This section includes the Chemistry and Hematology Lab Results on record with [place] for the patient. Radiology Reports and Pathology Reports are provided separately, in subsequent sections. Lab Results This section contains the Chemistry/Hematology Results that were resulted 30 days before or 30 daysafter the date of the Encounter. Date/Time Source Result Type Result - Unit Interpretation Reference Range Specimen Type Comment Mar 30, 2024 07:44 AM [facility] CBC BLOOD Specimen Type: BLOOD No comment entered. Ordering Provider: REINA PANDEY Report Released Date/Time: Mar 28, 2024 03:46 PM Reporting Lab: [facility] [address] [facility] [address] Performing Lab: [place] [address] [facility] [address] WBC 6.7 10*3/uL 3.6-11.2 RBC 3.35 10*6/uL [...] 0.00-0. 20 Mar 30, 2024 07:44 AM [facility] BASIC METABOLIC PANEL PLASMA Specimen Type: PL ASMA Comment: No hemolysis noted. Ordering Provider: REINA PANDEY Report Released Date/Time: Mar 28, 2024 03:46 PM Reporting Lab: [address] [address] Performing Lab: [address] [address] CREATININE 2.19 mg/dL H 0.6-1.1 UREA NITROGEN 30.2 mg/dL H 9.0-25.0 GLUCOSE 123 mg/dL H 72-99 SODIUM 144 meq/L 136-145 POTASSIUM 3.6 meq/L 3.5-5 CHLORIDE 106 meq/L 98-107 CARBON DIOXIDE 24 meq/L 22-31 CALCIUM 10.8 mg/dL H 8.4-10.4 EGFR (CKD-EPI 2020) 24.0 >60 Mar 29, 2024 07:59 AM [facility] CORTISOL(STL Eff 01/21) PLASMA Specimen Type: PLASMA Comment: No hemolysis noted. Ordering Provider: REINA PANDEY Report Released Date/Time: Mar 28, 2024 05:00 PM Reporting Lab: [address] [address] Performing Lab: [address] [address] CORTISOL(STL Eff 01/21) 14.700 ug/dL Mar 29, 2024 07:59 AM [facility] BASIC METABOLIC PANEL PLASMA Specimen Type: PL ASMA Comment: No hemolysis noted. Ordering Provider: REINA PANDEY Report Released Date/Time: Mar 28, 2024 03:46 PM Reporting Lab: [address] [address] Performing Lab: [address] [address] CREATININE 2.58 mg/dL H 0.6-1.1 UREA NITROGEN 39.0 mg/dL H 9.0-25.0 GLUCOSE 137 mg/dL H 72-99 SODIUM 145 meq/L 136-145 POTASSIUM 3.8 meq/L 3.5-5 CHLORIDE 106 meq/L 98-107 CARBON DIOXIDE 24 meq/L 22-31 CALCIUM 10.9 mg/dL H 8.4-10.4 EGFR (CKD-EPI 2020) 19.7 >60 Mar 29, 2024 07:59 AM [facility] CBC BLOOD Specimen Type: BLOOD No comment entered. Ordering Provider: REINA PANDEY Report Released Date/Time: Mar 28, 2024 03:46 PM Reporting Lab: [address] [address] Performing Lab: [address] [address] WBC 5.9 10*3/uL 3.6-11.2 RBC 3.27 10*6/uL [...] 0.00-0. 20 Mar 28, 2024 07:20 PM [facility] URINALYSIS W/ CX REFLEX (STL-PB) URINE Specim en Type: URINE No comment entered. Ordering Provider: REINA PANDEY Report Released Date/Time: Mar 28, 2024 02:27 PM Reporting Lab: [facility] [address] [facility] [address] Performing Lab: [facility] [address] [facility] [facility] [address] URINE COLOR Colorless Yellow U.BILIRUBIN Negative mg/dL Negative U.PH 7.5 5.0-8.0 APPEARANCE Clear Clear U.NITRITE Negative mg/dL Negative URN.GLUCOSE Normal mg/dL Negative URN.PROTEIN Negative mg/dL URN.UROBILINOGEN Normal mg/dL Normal URN.BLOOD Negative mg/dL Negative-Trace URN.KETONES Negative mg/dL Negative-Trac e URN.LEUK.EST. Negative mg/dL Negative-Tr kiarra URN.SPECIFIC GRAVITY 1.008 Mar 28, 2024 06:11 PM [facility] METHYLMALONIC ACID SERUM Specimen Type: SERUM [...] neural tube defects and intrauterine growth restriction. [employer] utilized Multi-Modal Decomposition (MMD) analysis to establish first and second trimester- specific MMA reference intervals in , as given below: MMA, First trimester (<13 wks gestation): 58-167 nmol/L MMA, Second trimester (13-23 wks gestation): 63-241 nmol/L This test was developed and its analytical performance characteristics have been determined by [employer]. It has not been cleared or approved by the FDA. This assay has been validated pursuant to the CLIA regulations and is used for clinical purposes. Test Performed by [employer], [employer] [facility], [address] [place] [address] Iker Simon M.D., Ph.D., Director of Laboratories , CLIA [id number] Ordering Provider: REINA PANDEY Report Released Date/Time: Mar 28, 2024 03:46 PM Reporting Lab: [place] [address] [address] [address] Performing Lab: [facility] [id number] [place] [address] METHYLMALONIC ACID 512 nmol/L H 69-390 Mar 28, 2024 06:11 PM [facility] B12 SERUM Specimen Type: SERUM No comment entered. Ordering Provider: REINA PANDEY Report Released Date/Time: Mar 28, 2024 03:46 PM Reporting Lab: [place] [address] [facility] [address] Performing Lab: [place] [address] [facility] [address] B12 287 pg/mL 213-816 Mar 28, 2024 06:11 PM [facility] ([facility]) SERUM Specimen Type: SERUM No comment entered. Ordering Provider: REINA PANDEY Report Released Date/Time: Mar 28, 2024 03:46 PM Reporting Lab: [place] [address] [facility] [address] Performing Lab: [place] [address] [facility] [address] [facility]OL[facility] ([facility]) 13.9 ng/mL 7-20 Mar 28, 2024 06:11 PM [facility] TSH W/ REFLEX FT4 (L) PLASMA Specimen Type: PLASMA No comment entered. Ordering Provider: REINA PANDEY Report Released Date/Time: Mar 28, 2024 03:46 PM Reporting Lab: [address] [address] Performing Lab: [address] [address] TSH 2.508 u[IU]/mL 0.47-5 Mar 28, 2024 06:11 PM [facility] HGA1C BLOOD Specimen Type: BLOOD No comment entered. Ordering Provider: REINA PANDEY Report Released Date/Time: Mar 28, 2024 03:46 PM Reporting Lab: [address] [address] Performing Lab: [address] [address] HGA1C 5.5 4.0-6.0 Mar 28, 2024 06:11 PM [facility] CBC BLOOD Specimen Type: BLOOD No comment entered. Ordering Provider: REINA PANDEY Report Released Date/Time: Mar 28, 2024 03:46 PM Reporting Lab: [address] [address] Performing Lab: [address] [address] WBC 9.0 10*3/uL 3.6-11.2 RBC 3.31 10*6/uL [...] 0.00-0. 20 Mar 28, 2024 06:11 PM [facility] COMPREHENSIVE METABOLIC PANEL PLASMA Specimen Type: PLASMA Comment: No hemolysis noted. Ordering Provider: REINA PANDEY Report Released Date/Time: Mar 28, 2024 03:46 PM Reporting Lab: [place] [address] [facility] [address] Performing Lab: [address] [address] CREATININE 2.68 mg/dL H 0.6-1.1 UREA NITROGEN [...] (CKD-EPI 2020) 18.8 >60 Mar 28, 2024 04:18 PM [facility] MRSA SURVL NARES DNA NARES Specimen [...] Mar 28, 2024 04:15 PM Reporting Lab: [facility] [address] [facility] [address] Performing Lab: [facility] [address] [place] [address] MRSA SURVL NARES DNA Negative Negative Mar 28, 2024 11:10 AM [facility] B12 SERUM Specimen Type: SERUM No comment entered. Ordering Provider: CLEMENT PAN Report Released Date/Time: Mar 28, 2024 11:15 AM Reporting Lab: [facility] [address] [place] [address] Performing Lab: [address] [address] B12 247 pg/mL 213-816 Mar 28, 2024 11:10 AM [facility] BASIC METABOLIC PANEL PLASMA Specimen Type: PL ASMA Comment: No hemolysis noted. Ordering Provider: CLEMENT PAN Report Released Date/Time: Mar 28, 2024 11:15 AM Reporting Lab: [address] [address] Performing Lab: [address] [address] CREATININE 2.90 mg/dL H 0.6-1.1 UREA NITROGEN 40.6 mg/dL H 9.0-25.0 GLUCOSE 99 mg/dL 72-99 SODIUM 140 meq/L 136-145 POTASSIUM 4.2 meq/L 3.5-5 CHLORIDE 104 meq/L 98-107 CARBON DIOXIDE 22 meq/L 22-31 CALCIUM 11.3 mg/dL H 8.4-10.4 EGFR (CKD-EPI 2020) 17.1 >60 Mar 28, 2024 11:10 AM [facility] CBC BLOOD Specimen Type: BLOOD No comment entered. Ordering Provider: CLEMENT PAN Report Released Date/Time: Mar 28, 2024 11:15 AM Reporting Lab: [address] [address] Performing Lab: [address] [address] WBC 9.9 10*3/uL 3.6-11.2 RBC 3.34 10*6/uL [...] 10*3/uL 2.10-8.00 Mar 25, 2024 11:45 AM [facility] MAGNESIUM PLASMA Specimen Type: PLASM A Comment: No hemolysis noted. Ordering Provider: MAN ARREDONDO Report Released Date/Time: Mar 25, 2024 11:30 AM Reporting Lab: [facility] [address] [facility] [address] Performing Lab: [address] [address] MAGNESIUM 1.8 mg/dL 1.6-2.6 Mar 25, 2024 11:45 AM [facility] CBC BLOOD Specimen Type: BLOOD No comment entered. Ordering Provider: MAN ARREDONDO Report Released Date/Time: Mar 25, 2024 11:30 AM Reporting Lab: [facility] [address] [facility] [address] Performing Lab: [facility] [address] [facility] [address] WBC 9.9 10*3/uL 3.6-11.2 RBC 3.36 10*6/uL [...] 0.00-0. 20 Mar 25, 2024 11:45 AM [facility] COMPREHENSIVE METABOLIC PANEL PLASMA Specimen Type: PLASMA Comment: No hemolysis noted. Ordering Provider: MAN ARREDONDO Report Released Date/Time: Mar 25, 2024 11:30 AM Reporting Lab: [facility] [address] [facility] [address] Performing Lab: [facility] [address] [place] [address] CREATININE 2.62 mg/dL H 0.6-1.1 UREA NITROGEN [...] L 8-40 EGFR (CKD-EPI 2020) 19.3 >60 Vital Signs: All taken on the encounter date This section contains inpatient and outpatient Vital Signs collected on the date of the Encounter. Date/Time Temperature Pulse Blood Pressure Respiratory Rate SP02 Pain Height Weight Body Mass Index Source Mar 29, 2024 09:09 PM 97.9 63 147/83 20 99 0 [facility] Mar 29, 2024 08:21 PM 0 [facility] Mar 29, 2024 10:26 AM 0 [facility] Mar 29, 2024 09:41 AM 97.9 60 144/75 18 99 [facility] Mar 29, 2024 05:28 AM 98.2 60 144/82 20 97 0 [facility] Social History: Smoking Status (Most current) and Tobacco Use (All prior to encounter date) This section includes the most current, and the historical, smoking and tobacco- related health factors from the [place] facility where the Encounter took place. Current Smoking Status This section includes the most current smoking, or tobacco-related health factor, from the [place] facility where the Encounter took place. Date/Time Current Smoking Status Comment Facil ity Mar 28, 2024 12:54 PM ORYX ADMIT TOBACCO SCREEN REFUSED [facility] Tobacco Use History This section includes a history of the smoking, or tobacco-related health factors, that were collected on or before the date of the Encounter. The data comes from the [place] facility where the Encounter took place. Date/Time Smoking Status/Tobacco Use Comment F acility Sep 24, 2023 01:20 PM VA-TOBACCO FORMER USER [facility] Sep 24, 2023 01:20 PM VA-TOBACCO QUIT 15 YRS OR MORE [facility] Apr 06, 2021 07:54 PM ORYX ADMIT TOBACCO SCREEN NO [facility] Jul 26, 2020 09:33 AM VA-TOBACCO FORMER USER [facility] Jul 26, 2020 09:33 AM VA-TOBACCO QUIT 15 YRS OR MORE [facility] Aug 13, 2019 05:31 PM ORYX ADMIT TOBACCO SCREEN NO [facility] Nov 26, 2008 11:49 AM QUIT TOBACCO >7 YEARS AGO [facility] Advance Directives: All historical and current Section Date Range: From patient's date of to the date document was created. This section includes ALL of a patient's completed or amended [place] Advance and Rescinded Directives. The entries below indicate that a directive exists for the patient, but an actual copy is not included with this document. The data comes from all [place] facilities. Date Advance Directives Provider Source Nov 18, 2021 STATE-AUTHORIZED POR TABLE ORDERS ELIDIA NOONAN [facility] Radiology Reports: +/- 30 days of [...] the Encounter. The data comes from all [place] treatment facilities. Date/Time Radiology Report Provider Source Apr 14, 2024 01:58 PM US RENAL COMPLETE: JOVANA TRINIDAD [id number] -1955 F Exm Date: APR 14, 2024@13:58 Req Phys: MAN ARREDONDO Pat Loc: [facility] PACT 2 PCP (Req'g Lo Img Loc: [facility]-ULTRASOUND Service: [facility], [address] [address] (Case [id number] COMPLETE) US RENAL COMPLETE (US Detailed) CPT:08071 Reason for Study: worsening kidney funcion Clinical History: Report Status: Verified Date Reported: APR 14, 2024 Date Verified: APR 14, 2024 Software Consultant E-Sig:/ES/MARYANN HOPKINS Report: Case [id number]. US RENAL COMPLETE. TECHNIQUE: Realtime ultrasound examination [...] findings. Primary Interpreting Staff: MARYANN HOPKINS MD (Software Consultant) Primary Interpreting Resident: GERA YEE MD /MARYANN FLOREZ [facility] Mar 28, 2024 02:15 PM MRI SPINE THORACIC W/O CONT: JOVANA TRINIDAD [place] [id number] -1955 F Exm Date: MAR 28, 2024@14:15 Req Phys: CLEMENT PAN [facility] Loc: 6-N SURG-[facility]/03-28-2024@15:52 Img Loc: [facility] Service: Unknown [address] [address] (Case [id number] COMPLETE) MRI SPINE THORACIC W/O CONT (MRI Detailed) CPT:64227 Reason for Study: spastic gait, rule out [...] Responsible Attending: clement pan Attending Contact Number: [id number] Resident Contact Number: Does your patient have [...] 28, 2024 Date Verified: MAR 28, 2024 Software Consultant E-Sig:/ES/Alexis Gallo MD. FACR. Report: History: [...] Interpreting Staff: Alexis Gallo MD. FACR, Neuroradiologist (Software Consultant) /ALEXIS CORBETT [facility] Mar 28, 2024 02:12 PM MRI SPINE CERVICAL W/O CONT: JOVANA TRINIDAD [place] [id number] -1955 F Exm Date: MAR 28, 2024@14:12 Req Phys: PANCLEMENT Pat Loc: 6-N SURG-[facility]/03-28-2024@15:46 Img Loc: [facility] Service: [address] [address] (Case [id number] COMPLETE) MRI SPINE CERVICAL W/O CONT (MRI Detailed) CPT:36028 Reason for Study: spastic gait, rule out [...] 28, 2024 Date Verified: MAR 28, 2024 Software Consultant E-Sig:/ES/Alexis Gallo MD. FACR. Report: History: [...] Interpreting Staff: Alexis Gallo MD. FACR, Neuroradiologist (Software Consultant) /ALEXIS CORBETT [facility] Mar 28, 2024 02:11 PM MRI BRAIN W/O CONT : JOVANA TRINIDAD [id number] -1955 F Exm Date: MAR 28, 2024@14:11 Req Phys: CLEMENT PAN Loc: -EMERGENCY DEPT 2ND SHIFT (R Img Loc: [facility] Service: [address] [address] (Case [id number] COMPLETE) MRI BRAIN W/O CONT (MRI Detailed) CPT:39612 Reason for Study: cognitive decline ? vascular dementia Clinical History: Responsible Attending: clement pan Attending Contact Number: [phone] Resident Contact Number: Does your patient have [...] 28, 2024 Date Verified: MAR 28, 2024 [employer] E-Sig:/ES/Alexis Gallo MD. FACR. Report: History: cognitive [...] Interpreting Staff: Alexis Gallo MD. FACR, Neuroradiologist (Software Consultant) /ALEXIS CORBETT [facility] Mar 22, 2024 05:56 PM CHEST PORTABLE: JOVANA TRINIDAD [id number] -1955 F Exm Date: MAR 22, 2024@17:56 Req Phys: MAN ARREDONDO Loc: [facility] PACT 2 PCP (Req'g Lo Img Loc: OUTSIDE -GENERAL RAD Service: Unknown Screen: Patient is unable to answer or is unsure Screen Comment: OUTSIDE STUDY (Case [id number] COMPLETE) CHEST PORTABLE (RAD Detailed) CPT:85283 Reason for Study: Exam imported from outside [...] outside study. VERIFIED BY: / *ELECTRONICALLY FILED* [facility] Encounter Notes: All associated encounter notes This section contains the clinical notes associated to the Encounter. Date/Time Encounter Note(s) Provider Source Mar 29, 2024 09:30 AM PASTORAL CARE NOTE : LOCAL TITLE: PASTORAL CARE NOTE STANDARD TITLE: PASTORAL CARE NOTE DATE OF NOTE: MAR 29, 2024@09:30 ENTRY DATE: MAR 29, 2024@11:39:08 AUTHOR: LETICIA KIDD EXP COSIGNER: URGENCY: STATUS: COMPLETED Pastoral Visit: Initial (15 Minutes) Behavioral Services Tech met with: Location: Patient Room Mormon Preference: Anglican Initial Interaction: provided personal history [place] stated that she served in the [employer] for 10 years. Spiritual resources appear: adequate [place] requested prayers but denies needing any additional spiritual resources at this time. Discussed 's relationship with: family [place] mentioned having a supportive family, and currently lives with her son. Discussed 's concerns regarding: condition spoke at-length about her on-going medical issues, and is not sure how long he will remain at , but mentioned being at a variety of hospitals this past month. INTERVENTION Offered / accepted: blessing, prayer, pastoral support, ministry of presence, spiritual counseling, supportive listening OUTCOMES [place]'s Response: expressed appreciation for the visit Observations: seemed calmer, appeared more at peace, experienced support FOLLOW-UP Behavioral Services Tech will be available to as needed throughout this admission. /es/ REV. LETICIA KIDD D.Min., [facility] CLINICAL GRAIN PACKER Signed: 03/29/2024 11:[address] [facility]
--- OUTSIDE RECORDS SUMMARY | 2024-11-30 14:51 | XMS_ITS | Encounter Summary ---
Author Name [facility] [place] [facility] [place] [facility] [place] [facility] [place] Address [address] [place] [address] Care Team Providers Care Inside Phone Sales Name Role Phone MARIA ELENACAMERONID Primary Care [...] PRESCRIPT ION NONE Mar 16, 2006 NONE [id number] [place]AVE PATIENT [facility] PREFERRED PROVIDER ORGANIZAT ION (PPO) DEPAR TMENT OF DEFEN S Mar 16, 2006 [id number] MALAVE PATIENT MEDICARE (WNR) MEDICARE (M) PART B Nov 14, 2020 PART B [id number] SHELBY BRA PATIENT MEDICARE (WNR) MEDICARE (M) PART A Nov 14, 2020 PART A [id number] TRINIDADSMITH PATIENT Selected Encounter This section includes the information on record at [place] for the Encounter. Date/Time Encounter Type Encounter Description Reason Provider Source Jun 13, 2024 09:00 AM OFFICE O/P NEW MOD 45 MIN UROLOGY CLINIC ICD-10-CM Z87.440 Personal history of urinary (tract) infections MERLE MEIER IHE Encounter Template Text not used by [place] Assessments - Encounter Diagnoses This section includes the primary and secondary diagnoses documented for the Encounter. Date/Time Primary/Secondary Diagnosis Diagnosis Name Provider Source Jun 13, 2024 10:08 AM PRIMARY Personal history of urinary (tract) infections MERLE MEIER [facility] Jun 13, 2024 10:08 AM SECONDARY Gross hematuria MERLE MEIER [facility] Plan of Treatment: Future Appointments (+ 6 months) and Future Tests (+/- 45 days) The Plan of Treatment section includes future care activities for the patient from all [place] [facility] This section includes future appointments and future orders which are active, pending or scheduled. Future Appointments This section includes appointments that were scheduled to occur 6 months from the date of the Encounter, up to a maximum of 20 appointments. The data comes from all [place] treatment facilities. Appointment Date/Time Appointment Type Appointme nt Facility Name Jun 20, 2024 11:00 AM AMBULATORY - SURGERY [facility] Jul 09, 2024 01:00 PM AMBULATORY - SUR[facility]ERY [facility] Jul 18, 2024 11:40 AM AMBULATORY - MEDICINE [facility] Jul 29, 2024 12:00 PM AM[facility]ULATORY - NONE [facility] Aug 11, 2024 12:20 PM AMBULATORY - MEDICINE [facility] September 09, 2024 12:00 PM AMBULATORY - NONE [facility] Oct 06, 2024 01:20 PM AMBULATORY - SURGERY [facility] Oct 21, 2024 11:30 AM AMBULATORY - MEDICINE [facility] Oct 28, 2024 01:45 PM AMBULATORY - MEDICINE . [facility] Oct 29, 2024 01:30 PM AMBULATORY - NONE [facility] Oct 29, 2024 02:00 PM AMBULATORY - NONE [facility] Nikki [facility] Nov 26, 2024 11:00 AM AMBULATORY - MEDICINE [facility] Nov 28, 2024 09:00 AM AMBULATORY - NONE [facility] Jordan [facility] Nov 28, 2024 10:00 AM AMBULATORY - NONE [facility] Lab Results: +/- 30 days of the encounter This section includes the Chemistry and Hematology Lab Results on record with [place] for the patient. Radiology Reports and Pathology Reports are provided separately, in subsequent sections. Lab Results This section contains the Chemistry/Hematology Results that were resulted 30 days before or 30 daysafter the date of the Encounter. Date/Time Source Result Type Result - Unit Interpretation Reference Range Specimen Type Comment Jun 19, 2024 06:30 AM [facility] 24H UR URIC ACID 24-HOUR URINE Specimen Type: 24-HOUR URINE No comment entered. Ordering Provider: SHAHIDA ARREDONDO Report Released Date/Time: May 30, 2024 10:28 AM Reporting Lab: [facility] [address] [facility] [address] Performing Lab: [place] [id number] VOLUME 2006 mL URIC ACID URINE/OTHERS [phone] Jun 13, 2024 09:41 AM [facility] URINALYSIS (STL-PB) URINE Specimen Type: URIN E No comment entered. Ordering Provider: MERLE MEIER Report Released Date/Time: Jun 13, 2024 09:17 AM Reporting Lab: [facility] [address] [facility] [address] Performing Lab: [facility] [address] [facility] [address] URINE COLOR Yellow Yellow U.BILIRUBIN Negative mg/dL Negative U.PH 6.5 5.0-8.0 URINE WBC/HPF >182 /[HPF] H 0-5 URINE RBC/HPF 32 /[HPF] H 0-5 APPEARANCE Ex.Turbid Clear U.NITRITE Negative mg/dL Negative WBC Clumps MANY /[HPF] Negative-Rare BACTERIA FEW /[HPF] Negative SQUAMOUS EPITH. 4 /[HPF] 0-5 HYALINE CASTS 9 /[LPF] 0-5 URN.GLUCOSE Normal mg/dL Negative URN.PROTEIN 300 mg/dL H URN.UROBILINOGEN Normal mg/dL Normal URN.BLOOD 1+ mg/dL H Negative-Trace URN.KETONES Negative mg/dL Negative-Trac e URN.LEUK.EST. 500 mg/dL H Negative-Trace URN.SPECIFIC GRAVITY 1.023 May 30, 2024 02:26 PM [facility] TRAMADOL URINE Specimen Type: URINE Comment: Reporting limit: 100 ng/mL This test was developed and its analytical performance characteristics have been determined by [employer] [place], [place]. It has not been cleared or approved by the U.S. Food and Drug Administration. This assay has been validated pursuant to the CLIA regulations and is used for clinical purposes. Test Performed by [facility], [facility], [address] [place] [address] Iker Simon M.D., Ph.D., Director of Laboratories , CLIA [id number] Ordering Provider: SHAHIDA ARREDONDO Report Released Date/Time: May 30, 2024 10:28 AM Reporting Lab: [facility] [address] [facility] [phone] Performing Lab: [facility] [address] [facility] TRAMADOL Negative May 30, 2024 02:26 PM [facility] BASIC METABOLIC PANEL PLASMA Specimen Type: PL ASMA Comment: No hemolysis noted. Ordering Provider: SHAHIDA ARREDONDO Report Released Date/Time: May 30, 2024 10:41 AM Reporting Lab: [facility] [address] [place] [phone] Performing Lab: [facility] [address] [place] [phone] CREATININE 2.31 mg/dL H 0.6-1.1 UREA NITROGEN 38.3 mg/dL H 9.0-25.0 GLUCOSE 102 mg/dL H 72-99 SODIUM 142 meq/L 136-145 POTASSIUM 4.0 meq/L 3.5-5 CHLORIDE 105 meq/L 98-107 CARBON DIOXIDE 25 meq/L 22-31 CALCIUM 7.5 mg/dL L 8.4-10.4 EGFR (CKD-EPI 2020) 22.5 >60 May 30, 2024 02:26 PM [facility] URINE DRUG SCREEN (STL) URINE Specimen Type: URINE Comment: The cut-off value for Fentanyl was laboratory developed and its performance characteristics confirmed by the [facility] laboratory thru method comparison with reference laboratory and medication chart review. The laboratory is regulated under CLIA as qualified to perform high-complexity testing. Fentanyl is used for clinical purposes in conjunction with other laboratory tests. Ordering Provider: SHAHIDA ARREDONDO Report Released Date/Time: May 30, 2024 10:28 AM Reporting Lab: [address] [address] Performing Lab: [address] [address] ETHANOL <10 mg/dL 0-9 AMPHET/METHAMPHETAMINE Negative ng/mL COCAINE METABOLITES Negative ng/mL BENZODIAZEPINES (STL) Negative ng/mL CANNABINOIDS Negative ng/mL METHADONE Negative ng/mL OPIATES Negative ng/mL CREATININE URINE/OTHERS 46.6 mg/dL L 47-11 0 OXYCODONE (RZKAN-GJC-FV) Negative ng/mL BUPRENORPHINE (STL-PB-MA) Negative ng/mL FENTANYL (STL) Negative ng/mL May 30, 2024 01:27 PM [facility] I-STAT, CREAT (STL-MA) BLOOD Specimen Type: B LOOD Comment: Test Performed by: [id number] Meter #: [id number] Ordering Provider: SHAHIDA ARREDONDO Report Released Date/Time: May 30, 2024 01:28 PM Reporting Lab: [address] [address] Performing Lab: [address] [address] I-STAT, CREAT (STL-MA) 2.6 mg/dL H 0.7-1.3 Vital Signs: All taken on the encounter date This section contains inpatient and outpatient Vital Signs collected on the date of the Encounter. Date/Time Temperature Pulse Blood Pressure Respiratory Rate SP02 Pain Height Weight Body Mass Index Source Jun 13, 2024 09:03 AM 97.7 65 134/86 16 97 0 128.8 22 [facility] Social History: Smoking Status (Most current) and Tobacco Use (All prior to encounter date) This section includes the most current, and the historical, smoking and tobacco- related health factors from the [place] facility where the Encounter took place. Current Smoking Status This section includes the most current smoking, or tobacco-related health factor, from the [place] facility where the Encounter took place. Date/Time Current Smoking Status Comment Facil ity Mar 28, 2024 12:54 PM ORYX ADMIT TOBACCO SCREEN REFUSED [facility] Tobacco Use History This section includes a history of the smoking, or tobacco-related health factors, that were collected on or before the date of the Encounter. The data comes from the [place] facility where the Encounter took place. Date/Time Smoking Status/Tobacco Use Comment F acility Sep 24, 2023 01:20 PM VA-TOBACCO FORMER USER [facility] Sep 24, 2023 01:20 PM VA-TOBACCO QUIT 15 YRS OR MORE [facility] Apr 06, 2021 07:54 PM ORYX ADMIT TOBACCO SCREEN NO [facility] Jul 26, 2020 09:33 AM VA-TOBACCO FORMER USER [facility] Jul 26, 2020 09:33 AM VA-TOBACCO QUIT 15 YRS OR MORE [facility] Aug 13, 2019 05:31 PM ORYX ADMIT TOBACCO SCREEN NO [facility] Nov 26, 2008 11:49 AM QUIT TOBACCO >7 YEARS AGO [facility] Advance Directives: All historical and current Section Date Range: From patient's date of to the date document was created. This section includes ALL of a patient's completed or amended [place] Advance and Rescinded Directives. The entries below indicate that a directive exists for the patient, but an actual copy is not included with this document. The data comes from all [place] facilities. Date Advance Directives Provider Source Nov 18, 2021 STATE-AUTHORIZED POR TABLE ORDERS ELIDIA NOONAN [facility] Radiology Reports: +/- 30 [...] the Encounter. The data comes from all [place] treatment facilities. Date/Time Radiology Report Provider Source May 30, 2024 01:11 PM MRI ABDOMEN W/O&W CONT: JOVANA TRINIDAD BIRDIE [id number] [id number] F Exm Date: MAY 30, 2024@13:11 Req Phys: SHAHIDA ARREDONDO Loc: [facility] PACT 2 PCP (Mckenzie'pasquale Lo Img Loc: -[facility] Service: [address] [address] (Case [id number] COMPLETE) MRI ABDOMEN W/O&W CONT (MRI Detailed) CPT:93468 Contrast Media : Non-ionic Iodinated Reason for Study: Had ctscan of abd/pelvis (and hosp) showed 2 renal masses Clinical History: Responsible Attending: Shahida Arredondo MD Attending Contact Number: [phone] Resident Contact Number: Patient with chronic kidney [...] 03, 2024 Date Verified: JUN 03, 2024 Healthcare Specialist E-Sig:/ES/MILTON ALMEIDA MD Report: MRI of kidneys. [...] Primary Interpreting Staff: MILTON ALMEIDA MD, Radiologist (Healthcare Specialist) /MILTON [facility] Pathology Reports: +/- 30 days of [...] the Encounter. The data comes from all [place] treatment facilities. Date/Time Pathology Report Provider Source Jun 13, 2024 09:41 AM LR MICROBIOLOGY RE PORT: Accession [UID]: [id number] [[id number]] Received: Jun 13, 2024@09:41 Collection sample: URINE,CLEAN CATCH Collection date: Jun 13, 2024 09:41 Site/Specimen: URINE Provider: MERLE MEIER Test(s) ordered: C&S URINE..................... completed: Jun 15, 2024 09:10 * BACTERIOLOGY FINAL REPORT => Jun 15, 2024 09:24 TECH CODE: [id number] CULTURE RESULTS: ESCHERICHIA COLI - Quantity: >100,000 CFU/ML Comment: Susceptibilities Complete Cefuroxime=4 MCG/ML=S ANTIBIOTIC SUSCEPTIBILITY TEST RESULTS: ESCHERICHIA COLI : SUSC INTP AMIKACIN ..................... 2 S GENTAMICIN.................... <=1 S TOBRAMYCIN.................... <=1 S AMPICILLIN/SULBACTAM.......... R R PIPERACILLIN/TAZOBACTAM....... <=4 S ERTAPENEM..................... S S IMIPENEM...................... <=0.25 S CEFAZOLIN..................... I I CEFEPIME...................... S S CEFTRIAXONE................... S S ESBL.......................... NEG NEG CIPROFLOXACIN................. S S SULFA/TRIMETHAPRIM............ <=20 S NITROFURANTOIN................ <=16 S AMPICILLIN.................... >=32 R AMOX/CLAVULINATE.............. 8 S AZTREONAM..................... S S Bacteriology Remark(s): 06/14/24 >100,000 CFU/ML GRAM NEGATIVE RODS . ID & SENSITIVITIES PENDING 06/15/24 FINAL REPORT =--=--=--=--=--=--=--=--=--=-- =--=--=--=--=--=--=--=--=--=-- =--=--=--=--=--=-- Performing Laboratory: Bacteriology Report Performed By: [facility], [facility] [address] [facility] CLNV# [id number] [address] [facility] [address] [place] [address] ANA LILIA SESAY [facility] Encounter Notes: All associated encounter notes This section contains the clinical notes associated to the Encounter. Date/Time Encounter Note(s) Provider Source Jun 16, 2024 03:47 PM ADDENDUM: LOCAL TITLE: Addendum STANDARD TITLE: ADDENDUM DATE OF NOTE: JUN 16, 2024@15:47:40 ENTRY DATE: JUN 16, 2024@15:47:41 AUTHOR: IKER MUSTAFA EXP COSIGNER: URGENCY: STATUS: COMPLETED Due to 's current CrCl (20.1) renal dosing of bactrim would be recommended as SS (Single strenght) 400/80mg po q12h for treatment of UTI. Forwarding to provider for consideration of dosing change. Iker Mustafa, PharmD. /es/ IKER MUSTAFA Signed: 06/16/2024 15:51 Receipt Acknowledged By: 06/16/2024 16:03 /es/ MERLE MEIER Physician Covering Machine Tender, Urology --- Original Document --- 06/13/24 UROLOGY CONSULT ST[facility]: CHIEF COMPLAINT, HPI, EXAM & DATA CC: UTIs COMPLAINTS: 68 y/o W F >here for consultation regarding her UTIs >she has had several infections a year, most recent ucx E.coli in 04/2024 >symptoms include urethral pressure at the end of urination >had gross hematuria in 2020, denies having a cystoscopy >had partial hysterectomy 28 years ago >thinks she might be working on a UTI currently >no other issues >denies any recent hematuria, dysuria PMH listed below and reviewed? Yes APPEARANCE / PERFORMANCE STATUS: A&O x3; robust, comfortable PVR (by scan): 70cc CREATININE 2.31 H mg/dL 05/30/2024 14:26 No PSA (LAST 10 5Y) EO data found UA ABNORMALITIES: No URINALYSIS EO data found RADIOLOGY: MRI Abdomen 05/2024 Impression: 1. I would classify all the renal lesions as Bosniak 1 or 2 benign renal cysts that do not require any imaging follow-up, with no solid nodules, no thick enhancing septations, and no enhancement on subtraction images. 2. Mild dilatation of the biliary tree RBUS 03/2024 Impression: Mild right hydronephrosis. No renal calculi or solid renal mass. Bilateral renal parenchymal thinning may represent chronic renal disease. ASSESSM ENT (DXS AND PROBLEMS) -------- 1-UTIs >1 culture proven UTI from last month >abdominal imaging without any obvious etiology >hx of partial hysterectomy 28 years ago 2-gross hematuria >several years ago >abdominal imaging negative for upper tract concerns >no previous cystoscopy PLANS-- ADVICE: 1-UTIs -encouraged good hygiene, wiping front to back with flushable wipes -urged for better hydration with timed voiding -recommended to start daily cranberry supplementation -will send vaginal estrogen cream to use for a total of 3 weeks -will collect UA and urine culture today and will treat appropriately 2-gross hematuria >reviewed recent MEDS/SUPPLIES: vaginal estrogen LABS/RADIOGRAPHS: UA, urine culture PROCEDURE/SURGERY: cysto FOLLOW-UP (when/why): RTC next month for cysto (MORE INFORMATION) -- * LABS------ CREATINECREATININE 2.31 H mg/dL 05/30/2024 14:26 UAURINE COLOR Colorless 05/06/2024 13:35 APPEARANCE Clear 05/06/2024 13:35 U.PH 7.0 05/06/2024 13:35 U.BILIRUBIN Negative mg/dL 05/06/2024 13:35 U.NITRITE Negative mg/dL 05/06/2024 13:35 URINE RBC/HPF 1 /HPF 05/06/2024 13:35 URINE WBC/HPF 44 H /HPF 05/06/2024 13:35 WBC Clumps OCC /HPF 05/06/2024 13:35 BACTERIA RARE /HPF 05/06/2024 13:35 SQUAMOUS EPITH. 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 (SNOMED CT 403791138069183) 6) Depressive Disorder NOS * (ICD-9-CM 311./300.4) 7) Gynecologic Exam 8) OA - Osteoarthritis (SNOMED CT 911595543) 9) Skin tag (SNOMED CT 022462006) 10) Nonvenomous insect bite (SNOMED CT 632484703) 11) Foot callus (SNOMED CT 353773350) 12) Verruca plantaris (SNOMED CT 25931690) 13) Edema (SNOMED CT 062899325) 14) Cramp (SNOMED CT 00576914) 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 5) CALCITRIOL 0.25MCG CAP TAKE ONE CAPSULE BY MOUTH THREE TIMES ACTIVE PER WEEK 6) CALCIUM CARB 500MG (CA 200MG) CHEW TAB CHEW AND SWALLOW ONE ACTIVE TABLET BY MOUTH THREE TIMES A DAY WITH MEALS AND CHEW AND SWALLOW ONE TABLET AT BEDTIME Indication: FOR CALCIUM SUPPLEMENTATION 7) CETIRIZINE HCL 10MG TAB TAKE ONE-HALF TABLET BY MOUTH ONCE A ACTIVE DAY FOR ALLERGY SYMPTOMS. NEW DOSE - RENAL ADJUSTED 8) FERROUS GLUCONATE 324MG TAB TAKE ONE TABLET BY MOUTH ONCE A ACTIVE DAY FOR IRON SUPPLEMENTATION. 9) LOPERAMIDE HCL 2MG CAP TAKE ONE CAPSULE BY MOUTH EVERY DAY ACTIVE NEEDED FOR DIARRHEA. 10) MELATONIN 3MG CAP/TAB TAKE TWO CAP/TAB BY MOUTH AT BEDTIME ACTIVE FOR SLEEP 11) MOXIFLOXACIN (EQV-VIGAMOX) 0.5% OPH SOLN INSTILL 1 DROP IN HOLD RIGHT EYE FOUR TIMES A DAY Indication: FOR BACTERIAL EYE INFECTION 12) TRAMADOL HCL 50MG TAB TAKE 1 TABLET BY MOUTH AT BEDTIME ACTIVE Indication: FOR PAIN Active Non-VA Medications Status 1) Non-VA FISH OIL 1000MG (500MG DHA/EPA) CAP 1000MG BY MOUTH ACTIVE TWICE A DAY 2) Non-VA MAGNESIUM OXIDE TAB 250MG BY MOUTH TWICE A DAY ACTIVE 14 Total Medications ----THE MOST RELEVANT INFORMATION IS LOCATED ABOVE THE ARROW * PLEASE BE SURE TO LOOK THERE. /sandra/ MERLE MEIER Physician Covering Machine Tender, Urology Signed: 06/13/2024 10:08 06/16/2024 ADDENDUM STATUS: COMPLETED Patient's urine culture resulted as follows: ---- MICROBIOLOGY ---- Accession [UID]: [id number] [[id number]] Received: Jun 13, 2024@09:41 Collection sample: URINE,CLEAN CATCH Collection date: Jun 13, 2024 09:41 Site/Specimen: URINE Provider: COOK,MERLE M Test(s) ordered: C&S URINE..................... completed: Jun 15, 2024 09:10 * BACTERIOLOGY FINAL REPORT => Jun 15, 2024 09:24 [facility] CODE: [id number] CULTURE RESULTS: ESCHERICHIA COLI - Quantity: >100,000 CFU/ML Comment: Susceptibilities Complete Cefuroxime=4 MCG/ML=S ANTIBIOTIC SUSCEPTIBILITY TEST RESULTS: ESCHERICHIA COLI : SUSC INTP AMIKACIN ..................... 2 S GENTAMICIN................. ... <=1 S TOBRAMYCIN................. ... <=1 S AMPICILLIN/SULBACTAM....... ... R R PIPERACILLIN/TAZOBACTAM.... ... <=4 S ERTAPENEM.................. ... S S IMIPENEM................... ... <=0.25 S CEFAZOLIN.................. ... I I CEFEPIME................... ... S S CEFTRIAXONE................ ... S S ESBL....................... ... NEG NEG CIPROFLOXACIN.............. ... S S SULFA/TRIMETHAPRIM......... ... <=20 S NITROFURANTOIN............. ... <=16 S AMPICILLIN................. ... >=32 R AMOX/CLAVULINATE........... ... 8 S AZTREONAM.................. ... S S Bacteriology Remark(s): 06/14/24 >100,000 CFU/ML GRAM NEGATIVE RODS . ID & SENSITIVITIES PENDING 06/15/24 FINAL REPORT Will order 2 week course of Bactrim to be overnighted. /sandra/ MERLE MEIER Physician Covering Machine Tender, Urology Signed: 06/16/2024 13:22 IKER MUSTAFA [facility] Jun 13, 2024 09:13 AM UROLOGY CONSULT: LOCAL TITLE: UROLOGY CONSULT [facility] STANDARD TITLE: UROLOGY CONSULT DATE OF NOTE: JUN 13, 2024@09:13 ENTRY DATE: JUN 13, 2024@09:13:41 AUTHOR: MERLE MEIER EXP COSIGNER: URGENCY: STATUS: COMPLETED UROLOGY CONSULT [facility] Has ADDENDA CHIEF COMPLAINT, HPI, EXAM & DATA CC: UTIs COMPLAINTS: 68 y/o W F >here for consultation regarding her UTIs >she has had several infections a year, most recent ucx E.coli in 04/2024 >symptoms include urethral pressure at the end of urination >had gross hematuria in 2020, denies having a cystoscopy >had partial hysterectomy 28 years ago >thinks she might be working on a UTI currently >no other issues >denies any recent hematuria, dysuria PMH listed below and reviewed? Yes APPEARANCE / PERFORMANCE STATUS: A&O x3; robust, comfortable PVR (by scan): 70cc CREATININE 2.31 H mg/dL 05/30/2024 14:26 No PSA (LAST 10 5Y) EO data found UA ABNORMALITIES: No URINALYSIS EO data found RADIOLOGY: MRI Abdomen 05/2024 Impression: 1. I would classify all the renal lesions as Bosniak 1 or 2 benign renal cysts that do not require any imaging follow-up, with no solid nodules, no thick enhancing septations, and no enhancement on subtraction images. 2. Mild dilatation of the biliary tree RBUS 03/2024 Impression: Mild right hydronephrosis. No renal calculi or solid renal mass. Bilateral renal parenchymal thinning may represent chronic renal disease. ASSESSM ENT (DXS AND PROBLEMS) -------- 1-UTIs >1 culture proven UTI from last month >abdominal imaging without any obvious etiology >hx of partial hysterectomy 28 years ago 2-gross hematuria >several years ago >abdominal imaging negative for upper tract concerns >no previous cystoscopy PLANS-- ADVICE: 1-UTIs -encouraged good hygiene, wiping front to back with flushable wipes -urged for better hydration with timed voiding -recommended to start daily cranberry supplementation -will send vaginal estrogen cream to use for a total of 3 weeks -will collect UA and urine culture today and will treat appropriately 2-gross hematuria >reviewed recent MEDS/SUPPLIES: vaginal estrogen LABS/RADIOGRAPHS: UA, urine culture PROCEDURE/SURGERY: cysto FOLLOW-UP (when/why): RTC next month for cysto (MORE INFORMATION) -- * LABS------ CREATINECREATININE 2.31 H mg/dL 05/30/2024 14:26 UAURINE COLOR Colorless 05/06/2024 13:35 APPEARANCE Clear 05/06/2024 13:35 U.PH 7.0 05/06/2024 13:35 U.BILIRUBIN Negative mg/dL 05/06/2024 13:35 U.NITRITE Negative mg/dL 05/06/2024 13:35 URINE RBC/HPF 1 /HPF 05/06/2024 13:35 URINE WBC/HPF 44 H /HPF 05/06/2024 13:35 WBC Clumps OCC /HPF 05/06/2024 13:35 BACTERIA RARE /HPF 05/06/2024 13:35 SQUAMOUS EPITH. 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 (SNOMED CT 138920147247734) 6) Depressive Disorder NOS * (ICD-9-CM 311./300.4) 7) Gynecologic Exam 8) OA - Osteoarthritis (SNOMED CT 718548514) 9) Skin tag (SNOMED CT 628771780) 10) Nonvenomous insect bite (SNOMED CT 335278395) 11) Foot callus (SNOMED CT 411845608) 12) Verruca plantaris (SNOMED CT 21636438) 13) Edema (SNOMED CT 011987349) 14) Cramp (SNOMED CT [id number]) 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 5) CALCITRIOL 0.25MCG CAP TAKE ONE CAPSULE BY MOUTH THREE TIMES ACTIVE PER WEEK 6) CALCIUM CARB 500MG (CA 200MG) CHEW TAB CHEW AND SWALLOW ONE ACTIVE TABLET BY MOUTH THREE TIMES A DAY WITH MEALS AND CHEW AND SWALLOW ONE TABLET AT BEDTIME Indication: FOR CALCIUM SUPPLEMENTATION 7) CETIRIZINE HCL 10MG TAB TAKE ONE-HALF TABLET BY MOUTH ONCE A ACTIVE DAY FOR ALLERGY SYMPTOMS. NEW DOSE - RENAL ADJUSTED 8) FERROUS GLUCONATE 324MG TAB TAKE ONE TABLET BY MOUTH ONCE A ACTIVE DAY FOR IRON SUPPLEMENTATION. 9) LOPERAMIDE HCL 2MG CAP TAKE ONE CAPSULE BY MOUTH EVERY DAY ACTIVE NEEDED FOR DIARRHEA. 10) MELATONIN 3MG CAP/TAB TAKE TWO CAP/TAB BY MOUTH AT BEDTIME ACTIVE FOR SLEEP 11) MOXIFLOXACIN (EQV-VIGAMOX) 0.5% OPH SOLN INSTILL 1 DROP IN HOLD RIGHT EYE FOUR TIMES A DAY Indication: FOR BACTERIAL EYE INFECTION 12) TRAMADOL HCL 50MG TAB TAKE 1 TABLET BY MOUTH AT BEDTIME ACTIVE Indication: FOR PAIN Active Non-VA Medications Status 1) Non-VA FISH OIL 1000MG (500MG DHA/EPA) CAP 1000MG BY MOUTH ACTIVE TWICE A DAY 2) Non-VA MAGNESIUM OXIDE TAB 250MG BY MOUTH TWICE A DAY ACTIVE 14 Total Medications ----THE MOST RELEVANT INFORMATION IS LOCATED ABOVE THE ARROW * PLEASE BE SURE TO LOOK THERE. /sandra/ MERLE MEIER Physician Covering Machine Tender, Urology Signed: 06/13/2024 10:08 06/16/2024 ADDENDUM STATUS: COMPLETED Patient's urine culture resulted as follows: ---- MICROBIOLOGY ---- Accession [UID]: [id number] [[id number]] Received: Jun 13, 2024@09:41 Collection sample: URINE,CLEAN CATCH Collection date: Jun 13, 2024 09:41 Site/Specimen: URINE Provider: MERLE MEIER Test(s) ordered: C&S URINE..................... completed: Jun 15, 2024 09:10 * BACTERIOLOGY FINAL REPORT => Jun 15, 2024 09:24 TECH CODE: [id number] CULTURE RESULTS: ESCHERICHIA COLI - Quantity: >100,000 CFU/ML Comment: Susceptibilities Complete Cefuroxime=4 MCG/ML=S ANTIBIOTIC SUSCEPTIBILITY TEST RESULTS: ESCHERICHIA COLI : SUSC INTP AMIKACIN ..................... 2 S GENTAMICIN................. ... <=1 S TOBRAMYCIN................. ... <=1 S AMPICILLIN/SULBACTAM....... ... R R PIPERACILLIN/TAZOBACTAM.... ... <=4 S ERTAPENEM.................. ... S S IMIPENEM................... ... <=0.25 S CEFAZOLIN.................. ... I I CEFEPIME................... ... S S CEFTRIAXONE................ ... S S ESBL....................... ... NEG NEG CIPROFLOXACIN.............. ... S S SULFA/TRIMETHAPRIM......... ... <=20 S NITROFURANTOIN............. ... <=16 S AMPICILLIN................. ... >=32 R AMOX/CLAVULINATE........... ... 8 S AZTREONAM.................. ... S S Bacteriology Remark(s): 06/14/24 >100,000 CFU/ML GRAM NEGATIVE RODS . ID & SENSITIVITIES PENDING EMMY 06/15/24 FINAL REPORT Will order 2 week course of Bactrim to be overnighted. /sandra/ MERLE MEIER Physician Covering Machine Tender, Urology Signed: 06/16/2024 13:22 06/16/2024 ADDENDUM STATUS: COMPLETED Due to 's current CrCl (20.1) renal dosing of bactrim would be recommended as SS (Single strenght) 400/80mg po q12h for treatment of UTI. Forwarding to provider for consideration of dosing change. Iker Mustafa, PharmD. /sandra/ IKER MUSTAFA Signed: 06/16/2024 15:51 Receipt Acknowledged By: * AWAITING SIGNATURE * MERLE MEIER KATHRYN [facility]
--- OUTSIDE RECORDS SUMMARY | 2024-11-30 14:52 | XMS_ITS | Encounter Summary ---
Author Name [facility] Organization [facility] Address [address] [place] [address] Care Team Providers Care Financial Reserve Clerk Name Role Phone MARIA ELENA MAN Primary [...] PRESCRIPT ION NONE Mar 16, 2006 NONE [id number] MALAVE PATIENT [facility] PREFERRED PROVIDER ORGANIZAT ION (PPO) DEPAR TMENT OF DEFEN S Mar 16, 2006 [id number] [place],DE BRA PATIENT MEDICARE (WNR) MEDICARE (M) PART B Nov 14, 2020 PART B [id number] SHEL[place] BRA PATIENT MEDICARE (WNR) MEDICARE (M) PART A Nov 14, 2020 PART A [id number] [place],DE BRA PATIENT Selected Encounter This section includes the information on record at OR for the Encounter. Date/Time Encounter Type Encounter Description Reason Provider Source Mar 28, 2024 10:49 AM EMERGENCY DEPT VISIT MOD [facility] EMERGENCY DEPT ICD-10-CM F03.B0 Unspecified dementia, moderate, without beh/psych/mood/an x PANMIGUELCLEMENT IHOscar Encounter Template Text not used by OR Assessments - Encounter Diagnoses This section includes the primary and secondary diagnoses documented for the Encounter. Date/Time Primary/Secondary Diagnosis Diagnosis Name Provider Source Mar 28, 2024 02:40 PM PRIMARY Unspecified dementia, moderate, without beh/psych/mood/an x MAXIMCLEMENT [facility] Plan of Treatment: Future Appointments (+ 6 months) and Future Tests (+/- 45 days) The Plan of Treatment section includes future care activities for the patient from all OR treatmentfacilities. This section includes future appointments and future orders which are active, pending or scheduled. Future Appointments This section includes appointments that were scheduled to occur 6 months from the date of the Encounter, up to a maximum of 20 appointments. The data comes from all [place] treatment facilities. Appointment Date/Time Appointment Type Appointme nt Facility Name Apr 02, 2024 10:00 AM AMBULATORY - MEDICINE . [facility] Apr 14, 2024 02:30 PM AMBULATORY - MEDICINE . [facility] Apr 30, 2024 02:00 PM AM[facility]ULATORY - NONE [facility] May 06, 2024 10:30 AM AMBULATORY - NONE [facility] May 30, 2024 10:00 AM AMBULATORY - MEDICINE [facility] May 30, 2024 01:30 PM AMBULATORY - NONE [facility] Jun 13, 2024 09:00 AM AMBULATORY - SURGERY [facility] Jun 20, 2024 11:00 AM AMBULATORY - SURGERY [facility] Jul 09, 2024 01:00 PM AMBULATORY - SURGERY [facility] Jul 18, 2024 11:40 AM AMBULATORY - MEDICINE [facility] Jul 29, 2024 12:00 PM AMBULATORY - NONE [facility] Aug 11, 2024 12:20 PM AMBULATORY - MEDICINE [facility] September 09, 2024 12:00 PM AMBULATORY - NONE [facility] Active, Pending, and Scheduled Orders This section includes a listing of several types of active, pending, and scheduled orders, including clinic medications orders, diagnostic test orders, procedure orders and consult orders; where the start date of the order is 45 days before the date of the Encounter or 45 days after the date of theEncounter. The data comes from all [facility] facilities. Test Date/Time Test Type Test Details Facility Name Mar 25, 2024 12:00 AM Laboratory - Chemi stry Order URINALYSIS (STL-PB) URINE [facility] Mar 25, 2024 12:00 AM Laboratory - Microbiology Order C&S URINE URINE,CLEAN CATCH [facility] Mar 28, 2024 11:15 AM Laboratory - Chemi stry Order COPPER BLOOD IN AM [facility] Lab Results: +/- 30 days of the encounter This section includes the Chemistry and Hematology Lab Results on record with OR for the patient. Radiology Reports and Pathology Reports are provided separately, in subsequent sections. Lab Results This section contains the Chemistry/Hematology Results that were resulted 30 days before or 30 daysafter the date of the Encounter. Date/Time Source Result Type Result - Unit Interpretation Reference Range Specimen Type Comment Mar 30, 2024 07:44 AM [facility] CBC BLOOD Specimen Type: BLOOD No comment entered. Ordering Provider: REINA PANDEY Report Released Date/Time: Mar 28, 2024 03:46 PM Reporting Lab: [facility] [address] [facility] [address] Performing Lab: [facility] [address] [facility] [address] WBC 6.7 10*3/uL 3.6-11.2 RBC 3.35 10*6/uL [...] 0.00-0. 20 Mar 30, 2024 07:44 AM [facility] BASIC METABOLIC PANEL PLASMA Specimen Type: PL ASMA Comment: No hemolysis noted. Ordering Provider: REINA PANDEY Report Released Date/Time: Mar 28, 2024 03:46 PM Reporting Lab: [facility] [address] [facility] [address] Performing Lab: [address] [address] CREATININE 2.19 mg/dL H 0.6-1.1 UREA NITROGEN 30.2 mg/dL H 9.0-25.0 GLUCOSE 123 mg/dL H 72-99 SODIUM 144 meq/L 136-145 POTASSIUM 3.6 meq/L 3.5-5 CHLORIDE 106 meq/L 98-107 CARBON DIOXIDE 24 meq/L 22-31 CALCIUM 10.8 mg/dL H 8.4-10.4 EGFR (CKD-EPI 2020) 24.0 >60 Mar 29, 2024 07:59 AM [facility] CORTISOL(STL Eff 01/21) PLASMA Specimen Type: PLASMA Comment: No hemolysis noted. Ordering Provider: REINA PANDEY Report Released Date/Time: Mar 28, 2024 05:00 PM Reporting Lab: [facility] [address] [facility] [address] Performing Lab: [address] [address] CORTISOL(STL Eff 01/21) 14.700 ug/dL Mar 29, 2024 07:59 AM [facility] BASIC METABOLIC PANEL PLASMA Specimen Type: PL ASMA Comment: No hemolysis noted. Ordering Provider: REINA PANDEY Report Released Date/Time: Mar 28, 2024 03:46 PM Reporting Lab: [address] [address] Performing Lab: [address] [address] CREATININE 2.58 mg/dL H 0.6-1.1 UREA NITROGEN 39.0 mg/dL H 9.0-25.0 GLUCOSE 137 mg/dL H 72-99 SODIUM 145 meq/L 136-145 POTASSIUM 3.8 meq/L 3.5-5 CHLORIDE 106 meq/L 98-107 CARBON DIOXIDE 24 meq/L 22-31 CALCIUM 10.9 mg/dL H 8.4-10.4 EGFR (CKD-EPI 2020) 19.7 >60 Mar 29, 2024 07:59 AM [facility] CBC BLOOD Specimen Type: BLOOD No comment entered. Ordering Provider: REINA PANDEY Report Released Date/Time: Mar 28, 2024 03:46 PM Reporting Lab: [address] [address] Performing Lab: [address] [address] WBC 5.9 10*3/uL 3.6-11.2 RBC 3.27 10*6/uL [...] 0.00-0. 20 Mar 28, 2024 07:20 PM [facility] URINALYSIS W/ CX REFLEX (STL-PB) URINE Specim en Type: URINE No comment entered. Ordering Provider: REINA PANDEY Report Released Date/Time: Mar 28, 2024 02:27 PM Reporting Lab: [facility] [address] [facility] [address] Performing Lab: [place] [address] [facility] [address] URINE COLOR Colorless Yellow U.BILIRUBIN Negative mg/dL Negative U.PH 7.5 5.0-8.0 APPEARANCE Clear Clear U.NITRITE Negative mg/dL Negative URN.GLUCOSE Normal mg/dL Negative URN.PROTEIN Negative mg/dL URN.UROBILINOGEN Normal mg/dL Normal URN.BLOOD Negative mg/dL Negative-Trace URN.KETONES Negative mg/dL Negative-Trac e URN.LEUK.EST. Negative mg/dL Negative-Tr kiarra URN.SPECIFIC GRAVITY 1.008 Mar 28, 2024 06:11 PM [facility] METHYLMALONIC ACID SERUM Specimen Type: SERUM Comment: [...] neural tube defects and intrauterine growth restriction. [employer] utilized Multi-Modal Decomposition (MMD) analysis to establish first and second trimester- specific MMA reference intervals in , as given below: MMA, First trimester (<13 wks gestation): 58-167 nmol/L MMA, Second trimester (13-23 wks gestation): 63-241 nmol/L This test was developed and its analytical performance characteristics have been determined by [employer]. It has not been cleared or approved by the FDA. This assay has been validated pursuant to the CLIA regulations and is used for clinical purposes. Test Performed by [facility], [employer] [facility], [address] [place] [address] Iker Simon M.D., Ph.D., Director of Laboratories , CLIA [id number] Ordering Provider: REINA PANDEY Report Released Date/Time: Mar 28, 2024 03:46 PM Reporting Lab: [address] [address] Performing Lab: [facility] [id number] [place] [address] METHYLMALONIC ACID 512 nmol/L H 69-390 Mar 28, 2024 06:11 PM [facility] B12 SERUM Specimen Type: SERUM No comment entered. Ordering Provider: REINA PANDEY Report Released Date/Time: Mar 28, 2024 03:46 PM Reporting Lab: [place] [address] [facility] [address] Performing Lab: [place] [address] [facility] [address] B12 287 pg/mL 213-816 Mar 28, 2024 06:11 PM [facility] ([facility]) SERUM Specimen Type: SERUM No comment entered. Ordering Provider: REINA PANDEY Report Released Date/Time: Mar 28, 2024 03:46 PM Reporting Lab: [place] [address] [facility] [address] Performing Lab: [place] [address] [facility] [address] FOLATE ([facility]) 13.9 ng/mL 7-20 Mar 28, 2024 06:11 PM [facility] TSH W/ REFLEX FT4 (L) PLASMA Specimen Type: PLASMA No comment entered. Ordering Provider: REINA PANDEY Report Released Date/Time: Mar 28, 2024 03:46 PM Reporting Lab: [place] [phone] Performing Lab: [address] [address] TSH 2.508 u[IU]/mL 0.47-5 Mar 28, 2024 06:11 PM [facility] HGA1C BLOOD Specimen Type: BLOOD No comment entered. Ordering Provider: REINA PANDEY Report Released Date/Time: Mar 28, 2024 03:46 PM Reporting Lab: [place] [address] Performing Lab: [place] [phone] HGA1C 5.5 4.0-6.0 Mar 28, 2024 06:11 PM [facility] CBC BLOOD Specimen Type: BLOOD No comment entered. Ordering Provider: REINA PANDEY Report Released Date/Time: Mar 28, 2024 03:46 PM Reporting Lab: [place] [address] Performing Lab: [place] [phone] WBC 9.0 10*3/uL 3.6-11.2 RBC 3.31 10*6/uL [...] 0.00-0. 20 Mar 28, 2024 06:11 PM [facility] COMPREHENSIVE METABOLIC PANEL PLASMA Specimen Type: PLASMA Comment: No hemolysis noted. Ordering Provider: REINA PANDEY Report Released Date/Time: Mar 28, 2024 03:46 PM Reporting Lab: [facility] [address] [facility] [address] Performing Lab: [address] [address] CREATININE 2.68 mg/dL H 0.6-1.1 UREA NITROGEN [...] 18.8 >60 Mar 28, 2024 04:18 PM [facility] MRSA SURVL NARES DNA NARES Specimen Type: [...] Mar 28, 2024 04:15 PM Reporting Lab: [address] [address] Performing Lab: [address] [address] MRSA SURVL NARES DNA Negative Negative Mar 28, 2024 11:10 AM [facility] B12 SERUM Specimen Type: SERUM No comment entered. Ordering Provider: CLEMENT PAN Report Released Date/Time: Mar 28, 2024 11:15 AM Reporting Lab: [address] [address] Performing Lab: [address] [address] B12 247 pg/mL 213-816 Mar 28, 2024 11:10 AM [facility] BASIC METABOLIC PANEL PLASMA Specimen Type: PL ASMA Comment: No hemolysis noted. Ordering Provider: CLEMENT PAN Report Released Date/Time: Mar 28, 2024 11:15 AM Reporting Lab: [address] [address] Performing Lab: [address] [address] CREATININE 2.90 mg/dL H 0.6-1.1 UREA NITROGEN 40.6 mg/dL H 9.0-25.0 GLUCOSE 99 mg/dL 72-99 SODIUM 140 meq/L 136-145 POTASSIUM 4.2 meq/L 3.5-5 CHLORIDE 104 meq/L 98-107 CARBON DIOXIDE 22 meq/L 22-31 CALCIUM 11.3 mg/dL H 8.4-10.4 EGFR (CKD-EPI 2020) 17.1 >60 Mar 28, 2024 11:10 AM [facility] CBC BLOOD Specimen Type: BLOOD No comment entered. Ordering Provider: CLEMENT PAN Report Released Date/Time: Mar 28, 2024 11:15 AM Reporting Lab: [address] [address] Performing Lab: [address] [place] [address] WBC 9.9 10*3/uL 3.6-11.2 RBC 3.34 10*6/uL [...] 10*3/uL 2.10-8.00 Mar 25, 2024 11:45 AM [facility] MAGNESIUM PLASMA Specimen Type: PLASM A Comment: No hemolysis noted. Ordering Provider: MAN ARREDONDO Report Released Date/Time: Mar 25, 2024 11:30 AM Reporting Lab: [address] [address] Performing Lab: [address] [address] MAGNESIUM 1.8 mg/dL 1.6-2.6 Mar 25, 2024 11:45 AM [facility] CBC BLOOD Specimen Type: BLOOD No comment entered. Ordering Provider: MAN ARREDONDO Report Released Date/Time: Mar 25, 2024 11:30 AM Reporting Lab: [address] [address] Performing Lab: [address] [address] WBC 9.9 10*3/uL 3.6-11.2 RBC 3.36 10*6/uL [...] 0.00-0. 20 Mar 25, 2024 11:45 AM [facility] COMPREHENSIVE METABOLIC PANEL PLASMA Specimen Type: PLASMA Comment: No hemolysis noted. Ordering Provider: MAN ARREDONDO Report Released Date/Time: Mar 25, 2024 11:30 AM Reporting Lab: [facility] [address] [facility] [address] Performing Lab: [facility] [address] [place] [phone] CREATININE 2.62 mg/dL H 0.6-1.1 UREA NITROGEN [...] Source Mar 28, 2024 08:57 PM 0 [facility] Mar 28, 2024 08:20 PM 97.9 72 147/79 18 96 0 [facility] Mar 28, 2024 06:14 PM 3 [facility] Mar 28, 2024 06:03 PM 3 [facility] Mar 28, 2024 04:41 PM 97.7 69 164/92 18 96 3 [facility] Social History: Smoking Status (Most current) and Tobacco Use (All prior to encounter date) This section includes the most current, and the historical, smoking and tobacco- related health factors from the OR facility where the Encounter took place. Current Smoking Status This section includes the most current smoking, or tobacco-related health factor, from the OR facility where the Encounter took place. Date/Time Current Smoking Status Comment Facil ity Mar 28, 2024 12:54 PM ORYX ADMIT TOBACCO SCREEN REFUSED [facility] Tobacco Use History This section includes a history of the smoking, or tobacco-related health factors, that were collected on or before the date of the Encounter. The data comes from the OR facility where the Encounter took place. Date/Time Smoking Status/Tobacco Use Comment F acility Sep 24, 2023 01:20 PM VA-TOBACCO FORMER USER [facility] Sep 24, 2023 01:20 PM VA-TOBACCO QUIT 15 YRS OR MORE [facility] Apr 06, 2021 07:54 PM ORYX ADMIT TOBACCO SCREEN NO [facility] Jul 26, 2020 09:33 AM VA-TOBACCO FORMER USER [facility] Jul 26, 2020 09:33 AM VA-TOBACCO QUIT 15 YRS OR MORE [facility] Aug 13, 2019 05:31 PM ORYX ADMIT TOBACCO SCREEN NO [facility] Nov 26, 2008 11:49 AM QUIT TOBACCO >7 YEARS AGO [facility] Advance Directives: All historical and current Section Date Range: From patient's date of to the date document was created. This section includes ALL of a patient's completed or amended OR Advance and Rescinded Directives. The entries below indicate that a directive exists for the patient, but an actual copy is not included with this document. The data comes from all OR facilities. Date Advance Directives Provider Source Nov 18, 2021 STATE-AUTHORIZED POR TABLE ORDERS ELIDIA NOONAN [facility] Radiology Reports: +/- 30 days of [...] the Encounter. The data comes from all OR treatment facilities. Date/Time Radiology Report Provider Source Apr 14, 2024 01:58 PM US RENAL COMPLETE: JOVANA TRINIDAD [id number] -1955 F Exm Date: APR 14, 2024@13:58 Req Phys: MAN ARREDONDO Loc: [facility]-ST CLR PACT 2 PCP (Req'g Lo Img Loc: [facility]-ULTRASOUND Service: [facility], [address] [address] (Case [id number] COMPLETE) US RENAL COMPLETE (US Detailed) CPT:27830 Reason for Study: worsening kidney funcion Clinical History: Report Status: Verified Date Reported: APR 14, 2024 Date Verified: APR 14, 2024 [employer] E-Sig:/ES/MARYANN HOPKINS Report: Case [id number]. US RENAL COMPLETE. TECHNIQUE: Realtime ultrasound examination [...] disease. Report dictated by Gera Yee (residential electrician) I, Maryann Hopkins, have reviewed the images and report and concur with these findings. Primary Interpreting Staff: MARYANN HOPKINS MD ([employer]) Primary Interpreting Resident: GERA YEE MD /MARYANN FLOREZ [facility] Mar 28, 2024 02:15 PM MRI SPINE THORACIC W/O CONT: JOVANA TRINIDAD BIRDIE [id number] -1955 F Exm Date: MAR 28, 2024@14:15 Req Phys: CLEMENT PAN Loc: 6-N SURG-[facility]/03-28-2024@15:52 Img Loc: [facility] Service: Unknown [address] [address] (Case [id number] COMPLETE) MRI SPINE THORACIC W/O CONT (MRI Detailed) CPT:00658 Reason for Study: spastic gait, rule out [...] Responsible Attending: clement pan Attending Contact Number: [phone] Resident Contact Number: Does your patient have [...] 28, 2024 Date Verified: MAR 28, 2024 [employer] E-Sig:/ES/Alexis Gallo MD. FACR. Report: History: spastic [...] Interpreting Staff: Alexis Gallo MD. FACR, Neuroradiologist ([employer]ter) /ALEXIS CORBETT [facility] Mar 28, 2024 02:12 PM MRI SPINE CERVICAL W/O CONT: JOVANA TRINIDAD [id number] -1955 F Exm Date: MAR 28, 2024@14:12 Req Phys: MIGUEL PANTHA Pat Loc: 6-N SURG-[facility]/03-28-2024@15:46 Img Loc: [facility] Service: [address] [address] (Case [id number] COMPLETE) MRI SPINE CERVICAL W/O CONT (MRI Detailed) CPT:37273 Reason for Study: spastic gait, rule out [...] 28, 2024 Date Verified: MAR 28, 2024 [employer] E-Sig:/ES/Alexis Gallo MD. FACR. Report: History: spastic [...] Interpreting Staff: Alexis Gallo MD. FACR, Neuroradiologist ([employer]ter) /ALEXIS CORBETT [facility] Mar 28, 2024 02:11 PM MRI BRAIN W/O CONT : JOVANA TRINIDAD BIRDIE [id number] -1955 F Exm Date: MAR 28, 2024@14:11 Req Phys: CLEMENT PAN Loc: [facility]-EMERGENCY DEPT 2ND SHIFT (R Img Loc: [facility] Service: [address] [address] (Case [id number] COMPLETE) MRI BRAIN W/O CONT (MRI Detailed) CPT:51800 Reason for Study: cognitive decline ? vascular dementia Clinical History: Responsible Attending: clement pan Attending Contact Number: [phone] Resident Contact Number: Does your patient have [...] 28, 2024 Date Verified: MAR 28, 2024 [employer] E-Sig:/ES/Alexis Gallo MD. FACR. Report: History: cognitive [...] Interpreting Staff: Alexis Gallo MD. FACR, Neuroradiologist (Bacon Skin Lifter) /ALEXIS CORBETT [facility] Mar 22, 2024 05:56 PM CHEST PORTABLE: JOVANA TRINIDAD [id number] -1955 F Exm Date: MAR 22, 2024@17:56 Req Phys: CAMERON ARREDONDOID Torres Pat Loc: -[facility] PACT 2 PCP (Req'g Fide Img Loc: OUTSIDE -GENERAL RAD Service: Unknown Screen: Patient is unable to answer or is unsure Screen Comment: OUTSIDE STUDY (Case [id number] COMPLETE) CHEST PORTABLE (RAD Detailed) CPT:35173 Reason for Study: Exam imported from outside Clinical History: Original Data for Imported Study Patient Name: JOVANA TRINIDAD Date: 1955 Sex: F Study Date: 03/22/24 Study Time: 05:56:26 Study Description: XR chest 1V portable Referring Physician: ERICA ALATORRE Series 1: 1 SR file, description: [employer] Basic Text SR for HL7 Radiological Report Series 2: 1 CR file, description: XR chest 1V portable Report Status: Electronically Filed Date Reported: APR 14, 2024 Report: Electronically generated report for outside study. Impression: Electronically generated report for outside study. VERIFIED BY: / *ELECTRONICALLY FILED* [facility] Encounter Notes: All associated encounter notes This section contains the clinical notes associated to the Encounter. Date/Time Encounter Note(s) Provider Source Mar 28, 2024 11:45 AM NURSING NOTE: LOCAL TITLE: [place] PERSONAL EFFECTS [facility] STANDARD TITLE: NURSING NOTE DATE OF NOTE: MAR 28, 2024@11:45 ENTRY DATE: MAR 28, 2024@11:45:37 AUTHOR: ALEN OJEDA EXP COSIGNER: URGENCY: STATUS: COMPLETED PERSONAL EFFECTS: Contraband Check: --Advised of prohibited contraband --Denies contraband --No contraband observed Contraband identified and disposition: --None Medication Check: --Denies Rx medication on their person at this time. --Denies EtOH and/or illicit substance(s) on their person at this time. --Denies having Rx narcotic pain medication on their person at this time. Prosthetic Check: --Glasses --Hearing Aid (R ear) --Walker Personal Items: --Patient/Family advised that [facility] not responsible for loss of any personal effects or valuables. --Patient present during collection of personal effects. Patient Funds Disposition: 1 PURSE 1 [employer]: $27 3 VISA CARDS 1 MASTER CARD 1 DISCOVER CARD Patient Valuables Observed: 1 I.L. STITCH BONDING MACHINE TENDER'S LICENSE 1 SET KEYS 1 MOBILE PHONE 1 MOBILE PHONE BLOOD AND PLASMA LABORATORY ASSISTANT 1 LONG SLEEVE SHIRT 1 PAIR PANTS 1 PAIR UNDERWEAR 1 PAIR SOCKS 1 PAIR SHOES 1 COAT 1 BAG MULTIPLE BAGS OF TOILETRIES /es/ ALEN OJEDA RN REGISTERED NURSE Signed: 03/28/2024 11:[address] [facility] Mar 28, 2024 11:36 AM NURSING NOTE: [facility] AND [facility]INTENANCE STANDARD TITLE: NURSING NOTE DATE OF NOTE: MAR 28, 2024@11:36 ENTRY DATE: MAR 28, 2024@11:36:21 AUTHOR: ALEN OJEDA EXP COSIGNER: URGENCY: STATUS: COMPLETED Version 2.2 Charting in accordance with OR APPROVED UPPER [place]AGIT STANDARD (ORAES) ACUTE INPATIENT/REHABILITATION NURSING ADMISSION SCREENING, ASSESSMENT, AND STANDARDS OF CARE IV Line Insertion and Maintenance Peripheral IV Line #1: Insertion: Date: 03/27/2024 Time: 11:10 Inserted by (name): Alen LINDSEY Gauge: 20g Location: RFA Line # 1: Assessment: Dressing Condition: --Clean, dry, intact --Transparent dressing Site Condition: --No redness, swelling, pain. Line Status: -- + Blood return. -- IV flushed. -- IV saline locked. /es/ ALEN OJEDA RN REGISTERED NURSE Signed: 03/28/2024 11:[address] [facility] Mar 28, 2024 11:16 AM PHYSICIAN EMERGENCY DEPT NOTE: LOCAL TITLE: EMERGENCY DEPARTMENT STL STANDARD TITLE: PHYSICIAN EMERGENCY DEPT NOTE DATE OF NOTE: MAR 28, 2024@11:16 ENTRY DATE: MAR 28, 2024@11:16:32 AUTHOR: CLEMENT PAN EXP COSIGNER: URGENCY: STATUS: COMPLETED TRIAGE CHIEF COMPLAINT: HPI: Patient is a 68 y/o female with c/o worsening memory, fatigue, and more difficulty with ambulation, progressing over the last few months. Seen by neurology and recommended to come into ER for MRI and admission for further work-up. Concern for myelopathy due to hyperreflexia and increased tone noted on neurology exam. patient denies any CP or SOB. no abd pain. no n/v/d. no further complaints. REVIEW OF SYSTEMS: See HPI for further details. All 10 systems reviewed and otherwise negative unless otherwise detailed herein. 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 (SNOMED CT 843953919674381) 6) Depressive Disorder NOS * (ICD-9-CM 311./300.4) 7) Gynecologic Exam 8) OA - Osteoarthritis (SNOMED CT 567893230) 9) Skin tag (SNOMED CT 965896463) 10) Nonvenomous insect bite (SNOMED CT 745005876) 11) Foot callus (SNOMED CT 128873010) 12) Verruca plantaris (SNOMED CT 39153325) 13) Edema (SNOMED CT 734605147) 14) Cramp (SNOMED CT 68286080) 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 Any medication discrepancies have been resolved. Patient will be provided with an updated list of his/her medication(s). SURGICAL HISTORY: not pertinent FAMILY HISTORY: not pertinent SOCIAL HISTORY: Social History Main Topics: Smoking status: No data available for: Current Tobacco User Alcohol Use: not indorsed Negative mg/dL (08/15/23 15:46) Illicit Drug Use: not indorsed Sexual Activity: Other Topics of Concern: ALLERGIES: Review of patient's allergies indicates: AMLODIPINE PHYSICAL EXAM: VITAL SIGNS: 161/80 (03/28/2024 10:59)70 (03/28/2024 10:59)96% (03/25/2024 10:39)98 F [36.7 C] (03/28/2024 10:59)16 (03/28/2024 10:59)The OBJECT WEIGHT LAST 3 was NOT found...Contact IRM. MAThe OBJECT was NOT found...Contact IRM.PAIN ASSESSMENTThe OBJECT was NOT found...Contact IRM. Measurement DT PAIN 03/28/2024 10:59 0 CONSTITUTIONAL: No acute distress, Non-toxic appearance CARDIOVASCULAR: Normal heart rate, Normal rhythm, No murmurs, No rubs, No gallops. PULMONARY/CHEST: CTA bilaterally, thorax stable without tenderness ABDOMEN: Bowel sounds normal, Soft, flat, No tenderness, No bruit, No masses, No pulsatile masses BACK: No tenderness, No CVA tenderness EXTREMITIES: Normal range of motion, Intact distal pulses, No edema, No tenderness NEUROLOGIC: Alert & oriented x 3, Normal motor function, spastic gait, no ataxia, No focal deficits appreciated on cursory screening exam, no cerebellar signs SKIN: Warm, Dry, No erythema, No rash LABS: reviewed in cprs and below Report Released Date/Time: Mar 28, 2024@12:39 Provider: CLEMENT PAN Specimen: SERUM. [facility] [id number] Specimen Collection Date: Mar 28, 2024@11:10 Test name Result units Ref. range Site Code B12 247 pg/mL 213 - 816 [657] Report Released Date/Time: Mar 28, 2024@12:14 Provider: CLEMENT PAN Specimen: PLASMA. [facility] [id number] Specimen Collection Date: Mar 28, 2024@11:10 Test name Result units Ref. range Site Code EGFR (CKD-EPI 2020) 17.1 Ref: >=60 [657] SODIUM 140 mEq/L 136 - 145 [657] POTASSIUM 4.2 mEq/L 3.5 - 5 [657] CHLORIDE 104 mEq/L 98 - 107 [657] Eval: Effect 01/14/06 Ref Range changed from 96-109 to 98-107 UREA NITROGEN 40.6 H mg/dL 9.0 - 25.0 [657] CREATININE 2.90 H mg/dL 0.6 - 1.1 [657] Eval: NEW REF RANGE EFFECTIVE 569229 PER VISN DIRECTIVE CALCIUM 11.3 H mg/dL 8.4 - 10.4 [657] Eval: Effective 12/29/13 ref range change from 8.4-10.2 to 8.4-10.4 as per VISN Eval: 15 Lab Committee Eval: Eval: Instances of spuriously high total calcium in lithium heparin tubes have Eval: been reported. If the total calcium resulted for this patient appears Eval: questionable, please order repeat testing on serum (blood collected in Eval: red-marbled top tube). CARBON DIOXIDE 22 mEq/L 22 - 31 [657] Eval: CRITICAL VALUES ENTERED 910319/PER VISN 15 DIRECTIVE Eval: Effective 01/14/06 Ref High changed from 31 to 32. GLUCOSE 99 mg/dL 72 - 99 [657] Eval: Fasting Blood Sugar Interpretation effective 08/18/03: Eval: FPG <100 mg/dL = Normal Fasting Glucose Eval: FPG 100 - 125 mg/dL = IFG (Impaired Fasting Glucose) Eval: FPG >126 mg/dL = Provisional Diagnosis of Diabetes (Reference: Eval: [place] Eval: Diabetes Association's Expert Committee Eval: on the Diagnosis and Classification of Diabetes Mellitus 2002) Eval: 09/28/03- Added ref high of 99 to plasma per Visn Conf Call Eval: Eval: (Reference range prior to 08/18/03: 72-109 mg/dl) Comment: No hemolysis noted. Report Released Date/Time: Mar 28, 2024@11:52 Provider: CLEMENT PAN Specimen: BLOOD. [facility] [id number] Specimen Collection Date: Mar 28, 2024@11:10 Test name Result units Ref. range Site Code WBC 9.9 10*3/uL 3.6 - 11.2 [657] RBC 3.34 L 10*6/uL 3.60 - 5.00 [657] HGB 10.0 L g/dL 11.0 - 14.9 [657] HCT 32.8 % 32.6 - 43.4 [657] Eval: Note change eff 479345:HCT M ref low changed from 42; ref high from 52 Eval: Critical Range for HGB added 01/17/02 MCV 98.2 fL 80.0 - 100.0 [657] MCH 29.9 pg 27.0 - 34.0 [657] MCHC 30.5 L g/dL 33.0 - 36.0 [657] RDW 14.4 % 11.8 - 15.1 [657] PLT 220 10*3/uL 150 - 400 [657] MPV 11.6 H fL 7.5 - 11.2 [657] Performing Lab Sites [657] [facility], [facility] [address] [facility] [CLIA# [id number]] [address] [facility] [address] [place] [address] RADIOLOGY: MRI to be ordered inpatient ECG IMPRESSION: not applicable ED COURSE & MEDICAL DECISION MAKING: Nursing notes, medications, vital signs, allergies and pertinent labs & imaging studies reviewed (see chart for details) with lab results reviewed with patient and family/caregivers at bedside and radiology results reviewed with patient and any family/caregivers at bedside. Stable, alert, nontoxic, nonfocal with clinically apparent worsening cognitive function and increasing difficulty with ambulation Emergency Department (ED) Medical Decision Making (MDM) Category: Medical Decision Making (MDM) Summary: Patient is a 68 year old with care impacted by HTN, CKD, dementia who presents with increased memory loss, difficulty with ambulation for many months These symptoms were concerning for myelopathy, vascular dementia per neurology. 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 DISPOSITION CONDITION:[ x ] Improved [ ] Unchanged [ ] Deteriorated CLINICAL IMPRESSION: 1 - Dementia 2 - spastic gait 3 - Active Outpatient Medications (including Supplies): Active Outpatient [...] TWICE A DAY ACTIVE 13 Total Medications /es/ CLEMENT PAN MD Staff physician - emergency medicine Signed: 03/28/2024 15:17 Receipt Acknowledged By: 03/28/2024 15:33 /es/ NATALIE GUADALUPE MSN RN REGISTERED NURSE 03/28/2024 16:46 /es/ CLEMENT RAMOS 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 Pt struggling to live independently. AOX4. No new symptoms. No distress noted. Level of Consciousness (AVPU): Alert = Appears aware of and responsive to the environment on their own. Follows commands, opens eyes spontaneously, and tracks objects. Vital Signs: Temperature 98 F (36.7 C) Pulse 70 Respirations 16 Blood Pressure 161/80 Pulse Oximetry 98 Room Air Pain: No pain Pain Score: 0 Suicide Screen: [place] Suicide Severity Rating Scale (C-SSRS) screener 1. Over the past month, have you [...] required due to responses to other questions. 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 (SNOMED CT 844047754570234) 6) Depressive Disorder NOS * (ICD-9-CM 311./300.4) 7) Gynecologic Exam 8) OA - Osteoarthritis (SNOMED CT 813273372) 9) Skin tag (SNOMED CT 738880048) 10) Nonvenomous insect bite (SNOMED CT 719700548) 11) Foot callus (SNOMED CT 352572769) 12) Verruca plantaris (SNOMED CT 75687638) 13) Edema (SNOMED CT 624562129) 14) Cramp (SNOMED CT 14030301) 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 Pt ambulatory to assigned ED room via walker. Monitoring equipment attached to pt. Pt A&Ox4 at this time. Pt in NAD at this time. Respirations even & unlabored. Assessment unchanged from triage. Warm blankets applied. Pt ED side rails up x 2. Call light is within reach. Bed locked in lowest position. 1107: Pt set for admission to [facility]. 1110: Blood work collected & sent to lab. 1115: Neurology at pt bedside for evaluation at this time. 1120: WATER SWALLOW SCREENING Completed 5 ml water 10 ml water 20 ml water PATIENT PASSED DYSPHAGIA SCREEN 1148: Personal effects note placed at this time. Personal effects note for more specific details. Pt denies having EtOH and/or illicit drugs on their person at this time. 1200: Assessment unchanged from previous rounding. 1205: Dr. Pan at pt bedside to re-evaluate pt. Dr. Pna updated pt on plan of care. Pt to be admitted at this time. 1300: Assessment unchanged from previous rounding. 1303: Dr. Pan reports pt does not need to have MRI while down in the ED. 1350: Admission report given to Jovani Aguilar RN. All questions answered at this time. Jovani Aguilar RN reports bed is still not clean. Jovani Aguilar RN reports he will call the ED when room is ready. 1400: Assessment unchanged from previous rounding. 1419: Jovani Aguilar RN reports pt's room is now clean. 1420: Pt transported to MRI dept. 1st then transport to after imaging via stretcher. /sandra/ ALEN OJEDA RN REGISTERED NURSE Signed: 03/28/2024 14:[address] [facility]
--- OUTSIDE RECORDS SUMMARY | 2024-11-30 14:52 | XMS_ITS | Encounter Summary ---
Author Name [facility] [facility] [place] Address [address] [place] [address] Care Team Providers Care Refrigerator Room Clerk Name Role Phone MARIA ELENACAMERONID Primary Care [...] PRESCRIPT ION NONE Mar 16, 2006 NONE [id number] [place] PATIENT [facility] PREFERRED PROVIDER ORGANIZAT ION (PPO) DEPAR TMENT OF DEFEN S Mar 16, 2006 [id number] [phone] MALAVE PATIENT MEDICARE (WNR) MEDICARE (M) PART A Nov 14, 2020 PART A [id number] [phone] SHELBY BRA PATIENT MEDICARE (WNR) MEDICARE (M) PART B Nov 14, 2020 PART B [id number] TRINIDADSMITH PATIENT Selected Encounter This section includes the information on record at [place] for the Encounter. Date/Time Encounter Type Encounter Description Reason Provider Source Jun 20, 2024 11:00 AM OFFICE O/P EST MOD 30 MIN OPTOMETRY ICD-10-CM H35.62 Retinal hemorrhage, left eye KETANSOLANGE Min Oscar Encounter Template Text not used by [place] Assessments - Encounter Diagnoses This section includes the primary and secondary diagnoses documented for the Encounter. Date/Time Primary/Secondary Diagnosis Diagnosis Name Provider Source Jun 20, 2024 12:16 PM PRIMARY Retinal hemorrhage, left eye [facility] Jun 20, 2024 12:16 PM SECONDARY Combined forms of age-related cataract, left [facility] Jun 20, 2024 12:16 PM SECONDARY Presbyopia [facility] Jun 20, 2024 12:16 PM SECONDARY Presence of intraocular lens [facility] Plan of Treatment: Future Appointments (+ 6 months) and Future Tests (+/- 45 days) The Plan of Treatment section includes future care activities for the patient from all [place] [facility]. This section includes future appointments and future orders which are active, pending or scheduled. Future Appointments This section includes appointments that were scheduled to occur 6 months from the date of the Encounter, up to a maximum of 20 appointments. The data comes from all [place] treatment facilities. Appointment Date/Time Appointment Type Appointme nt Facility Name Jul 09, 2024 01:00 PM AMBULATORY - SURGERY [facility] Jul 18, 2024 11:40 AM AMBULATORY - MEDICINE [facility] Jul 29, 2024 12:00 PM AMBULATORY - NONE [facility] Aug 11, 2024 12:20 PM AMBULATORY - MEDICINE [facility] September 09, 2024 12:00 PM AMBULATORY - NONE [facility] Oct 06, 2024 01:20 PM AMBULATORY - SURGERY [facility] Oct 21, 2024 11:30 AM AMBULATORY - MEDICINE [facility] Oct 28, 2024 01:45 PM AMBULATORY - MEDICINE [facility] Oct 29, 2024 01:30 PM AMBULATORY - NONE [facility] Oct 29, 2024 02:00 PM AMBULATORY - NONE [facility] Nov 26, 2024 11:00 AM AMBULATORY - MEDICINE [facility] Nov 28, 2024 09:00 AM AMBULATORY - NONE [facility] Nov 28, 2024 10:00 AM AMBULATORY - NONE [facility] Lab Results: +/- 30 days of the encounter This section includes the Chemistry and Hematology Lab Results on record with [place] for the patient. Radiology Reports and Pathology Reports are provided separately, in subsequent sections. Lab Results This section contains the Chemistry/Hematology Results that were resulted 30 days before or 30 daysafter the date of the Encounter. Date/Time Source Result Type Result - Unit Interpretation Reference Range Specimen Type Comment Jul 18, 2024 12:04 PM [facility] MICRAL/CREAT PROFILE (STL) URINE Specimen Typ e: URINE No comment entered. Ordering Provider: MERRILL HARRIS I Report Released Date/Time: Jul 18, 2024 11:21 AM Reporting Lab: [address] [address] Performing Lab: [address] [address] URINE ALBUMIN (PB-STL) 340.6 mg/L uACR (STL) 2183 mg/g H 0-29 CREATININE URINE/OTHERS 15.6 mg/dL L 47-11 0 Jul 18, 2024 11:46 AM [facility] IRON/TIBC PROFILE SERUM Specimen Type: SERUM No comment entered. Ordering Provider: MERRILL HARRIS I Report Released Date/Time: Jul 18, 2024 11:21 AM Reporting Lab: [address] [address] Performing Lab: [address] [address] TIBC 314 ug/dL 250-450 TRANSFERRIN 251 mg/dL 173-360 IRON SATURATION 25 20-50 IRON 78 ug/dL 50-170 Jul 18, 2024 11:46 AM [facility] FERRITIN SERUM Specimen Type: SERUM No comment entered. Ordering Provider: MERRILL HARRIS I Report Released Date/Time: Jul 18, 2024 11:21 AM Reporting Lab: [facility] [address] [place] [address] Performing Lab: [address] [address] FERRITIN 314.64 ng/mL H 10-204 Jul 18, 2024 11:46 AM [facility] CBC BLOOD Specimen Type: BLOOD No comment entered. Ordering Provider: MERRILL HARRIS I Report Released Date/Time: Jul 18, 2024 11:21 AM Reporting Lab: [address] [address] Performing Lab: [address] [address] WBC 7.1 10*3/uL 3.6-11.2 RBC 3.87 10*6/uL 3.60-5.00 HGB 12.0 g/dL 11.0-14.9 HCT 38.2 32.6-43.4 MCV 98.7 fL 80.0-100.0 MCH 31.0 pg 27.0-34.0 MCHC 31.4 g/dL L 33.0-36.0 PLT 234 10*3/uL 150-400 MPV 11.5 fL H 7.5-11.2 RDW 13.7 11.8-15.1 LYMPHOCYTES, AUTO % 21 MONOCYTES, AUTO % 7 NEUTROPHILS, AUTO % 69 EOSINOPHILS, AUTO % 2 BASOPHILS, AUTO % 0 LYMPHOCYTES, ABSOLUTE 1.52 10*3/uL 0.77- 4.50 MONOCYTES, ABSOLUTE 0.51 10*3/uL 0.19-0. 80 NEUTROPHILS, ABSOLUTE 4.89 10*3/uL 2.10- 8.00 EOSINOPHILS, ABSOLUTE 0.13 10*3/uL 0.00- 0.60 BASOPHILS, ABSOLUTE 0.02 10*3/uL 0.00-0. 20 Jul 18, 2024 11:46 AM [facility] VITAMIN D, 25-HYDROXY SERUM Specimen Type: SE RUM No comment entered. Ordering Provider: MERRILL HARRIS I Report Released Date/Time: Jul 18, 2024 11:21 AM Reporting Lab: [facility] [address] [address] Performing Lab: [place] [address] [facility] [address] VITAMIN D, 25-HYDROXY 42.5 ng/mL 30-96 Jul 18, 2024 11:46 AM [facility] PTH, INTACT (STL) SERUM Specimen Type: SERUM No comment entered. Ordering Provider: MERRILL HARRIS I Report Released Date/Time: Jul 18, 2024 11:21 AM Reporting Lab: [place] [address] [facility] [address] Performing Lab: [address] [address] PTH, INTACT (STL) 31.50 pg/mL 8.7-77.7 Jul 18, 2024 11:46 AM [facility] CYSTATIN C EGFR PANELS (STL-PB-MA) PLASMA Spec imen Type: PLASMA Comment: Choice of which of the reported eGFR values to use depends on the clinical situation. For example, for patients with severe muscle wasting or reduced muscle mass, eGFR calculated using the 2012 cystatin equation may be preferred. Ordering Provider: MERRILL HARRIS I Report Released Date/Time: Jul 18, 2024 11:21 AM Reporting Lab: [place] [address] [facility] [address] Performing Lab: [address] [address] CYSTATIN C 2.90 mg/L H 0.57-1.80 CKD-EPI CYSTATIN C (2011) 17.1 >60 CKD-EPI CREAT-CYSC (2020) 19.4 >60 CREATININE (L) 2.25 mg/dL H 0.6-1.1 Jul 18, 2024 11:46 AM [facility] RENAL PANEL PLASMA Specimen Type: PLASM A Comment: No hemolysis noted. Ordering Provider: MERRILL HARRIS I Report Released Date/Time: Jul 18, 2024 11:21 AM Reporting Lab: [facility] [address] [facility] [address] Performing Lab: [address] [address] CREATININE 2.24 mg/dL H 0.6-1.1 UREA NITROGEN 41.7 mg/dL H 9.0-25.0 GLUCOSE 89 mg/dL 72-99 SODIUM 140 meq/L 136-145 POTASSIUM 4.5 meq/L 3.5-5 CHLORIDE 105 meq/L 98-107 CARBON DIOXIDE 23 meq/L 22-31 CALCIUM 8.2 mg/dL L 8.4-10.4 PHOSPHOROUS 5.5 mg/dL H 2.3-4.7 ALBUMIN 4.5 g/dL 3.4-5 EGFR (CKD-EPI 2020) 23.3 >60 Jun 19, 2024 06:30 AM [facility] 24H UR URIC ACID 24-HOUR URINE Specimen Type: 24-HO UR URINE No comment entered. Ordering Provider: SHAHIDA ARREDONDO Report Released Date/Time: May 30, 2024 10:28 AM Reporting Lab: [address] [address] Performing Lab: [facility] [id number] [place] [address] VOLUME 2006 mL URIC ACID URINE/OTHERS 181 65-630 Jun 13, 2024 09:41 AM [facility] URINALYSIS (L-PB) URINE Specimen Type: URIN E No comment entered. Ordering Provider: MERLE MEIER Report Released Date/Time: Jun 13, 2024 09:17 AM Reporting Lab: [address] [address] Performing Lab: [address] [address] URINE COLOR Yellow Yellow U.BILIRUBIN Negative mg/dL [...] GRAVITY 1.023 May 30, 2024 02:26 PM [facility] TRAMADOL URINE Specimen Type: URINE Comment: Reporting limit: 100 ng/mL This test was developed and its analytical performance characteristics have been determined by [facility] [place], [place]. It has not been cleared or approved by the U.S. Food and Drug Administration. This assay has been validated pursuant to the CLIA regulations and is used for clinical purposes. Test Performed by [facility], [facility], [address] [place] [address] Iker Simon M.D., Ph.D., Director of Help/Systems , CLIA [id number] Ordering Provider: SHAHIDA ARREDONDO Report Released Date/Time: May 30, 2024 10:28 AM Reporting Lab: [facility] [address] [facility] [address] Performing Lab: [facility] [address] [facility] TRAMADOL Negative May 30, 2024 02:26 PM [facility] BASIC METABOLIC PANEL PLASMA Specimen Type: PL ASMA Comment: No hemolysis noted. Ordering Provider: SHAHIDA ARREDONDO Report Released Date/Time: May 30, 2024 10:41 AM Reporting Lab: [facility] [address] [facility] [address] Performing Lab: [facility] [address] [place] [address] CREATININE 2.31 mg/dL H 0.6-1.1 UREA NITROGEN 38.3 mg/dL H 9.0-25.0 GLUCOSE 102 mg/dL H 72-99 SODIUM 142 meq/L 136-145 POTASSIUM 4.0 meq/L 3.5-5 CHLORIDE 105 meq/L 98-107 CARBON DIOXIDE 25 meq/L 22-31 CALCIUM 7.5 mg/dL L 8.4-10.4 EGFR (CKD-EPI 2020) 22.5 >60 May 30, 2024 02:26 PM [facility] URINE DRUG SCREEN (STL) URINE Specimen Type: URINE Comment: The cut-off value for Fentanyl was laboratory developed and its performance characteristics confirmed by the [facility] laboratory thru method comparison with reference laboratory and medication chart review. The laboratory is regulated under CLIA as qualified to perform high-complexity testing. Fentanyl is used for clinical purposes in conjunction with other laboratory tests. Ordering Provider: SHAHIDA ARREDONDO Report Released Date/Time: May 30, 2024 10:28 AM Reporting Lab: [address] [address] Performing Lab: [address] [address] ETHANOL <10 mg/dL 0-9 AMPHET/METHAMPHETAMINE Negative ng/mL COCAINE METABOLITES Negative ng/mL BENZODIAZEPINES (STL) Negative ng/mL CANNABINOIDS Negative ng/mL METHADONE Negative ng/mL OPIATES Negative ng/mL CREATININE URINE/OTHERS 46.6 mg/dL L 47-11 0 OXYCODONE (MIEJM-XZI-AY) Negative ng/mL BUPRENORPHINE (STL-PB-[place]) Negative ng/mL FENTANYL (STL) Negative ng/mL May 30, 2024 01:27 PM [facility] I-STAT, CREAT (STL-[place]) BLOOD Specimen Type: B LOOD Comment: Test Performed by: [id number] Meter #: [id number] Ordering Provider: SHAHIDA ARREDONDO Report Released Date/Time: May 30, 2024 01:28 PM Reporting Lab: [address] [address] Performing Lab: [address] [address] I-STAT, CREAT (STL-[place]) 2.6 mg/dL H 0.7-1.3 Social History: Smoking Status (Most current) and Tobacco Use (All prior to encounter date) This section includes the most current, and the historical, smoking and tobacco- related health factors from the [place] facility where the Encounter took place. Current Smoking Status This section includes the most current smoking, or tobacco-related health factor, from the [place] facility where the Encounter took place. Date/Time Current Smoking Status Comment Facil ity Mar 28, 2024 12:54 PM ORYX ADMIT TOBACCO SCREEN REFUSED [facility] Tobacco Use History This section includes a history of the smoking, or tobacco-related health factors, that were collected on or before the date of the Encounter. The data comes from the [place] facility where the Encounter took place. Date/Time Smoking Status/Tobacco Use Comment F acility Sep 24, 2023 01:20 PM VA-TOBACCO FORMER USER [facility] Sep 24, 2023 01:20 PM VA-TOBACCO QUIT 15 YRS OR MORE [facility] Apr 06, 2021 07:54 PM ORYX ADMIT TOBACCO SCREEN NO [facility] Jul 26, 2020 09:33 AM VA-TOBACCO FORMER USER [facility] Jul 26, 2020 09:33 AM VA-TOBACCO QUIT 15 YRS OR MORE [facility] Aug 13, 2019 05:31 PM ORYX ADMIT TOBACCO SCREEN NO [facility] Nov 26, 2008 11:49 AM QUIT TOBACCO >7 YEARS AGO [facility] Advance Directives: All historical and current Section Date Range: From patient's date of to the date document was created. This section includes ALL of a patient's completed or amended [place] Advance and Rescinded Directives. The entries below indicate that a directive exists for the patient, but an actual copy is not included with this document. The data comes from all [facility]. Date Advance Directives Provider Source Nov 18, 2021 STATE-AUTHORIZED POR TABLE ORDERS LEIDIA NOONAN [facility] Radiology Reports: +/- 30 days of [...] the Encounter. The data comes from all [place] treatment facilities. Date/Time Radiology Report Provider Source May 30, 2024 01:11 PM MRI ABDOMEN W/O&W CONT: JOVANA TRIINDAD [id number] [id number] F Exm Date: MAY 30, 2024@13:11 Rechance Phys: SHAHIDA ARREDONDO Loc: [facility] PACT 2 PCP (Mckenzie'pasquale Elizalde Img Loc: [facility] Service: Unknown [facility] [address] [place] [address] (Case [id number] COMPLETE) MRI ABDOMEN W/O&W CONT (MRI Detailed) CPT:10808 Contrast Media : Non-ionic Iodinated Reason for Study: Had ctscan of abd/pelvis (and hosp) showed 2 renal masses Clinical History: Responsible Attending: Shahida Arredondo MD Attending Contact Number: [id number] Resident Contact Number: Patient with chronic kidney [...] 03, 2024 Date Verified: JUN 03, 2024 [employer] E-Sig:/ES/MILTON ALMEIDA MD Report: MRI of kidneys. [...] Primary Interpreting Staff: MILTON ALMEIDA MD, Radiologist ([employer]) /[facility] Pathology Reports: +/- 30 days of [...] the Encounter. The data comes from all [place] treatment facilities. Date/Time Pathology Report Provider Source Jun 13, 2024 09:41 AM LR MICROBIOLOGY RE PORT: Accession [UID]: [id number] [[id number]] Received: Jun 13, 2024@09:41 Collection sample: URINE,CLEAN CATCH Collection date: Jun 13, 2024 09:41 Site/Specimen: URINE Provider: EMRLE MEIER Test(s) ordered: C&S URINE..................... completed: Jun 15, 2024 09:10 * BACTERIOLOGY FINAL REPORT => Jun 15, 2024 09:24 TECH CODE: [id number] CULTURE RESULTS: ESCHERICHIA COLI - Quantity: >100,000 [...] =--=--=--=--=--=-- Performing Laboratory: Bacteriology Report Performed By: [facility] [address] [facility] [id number] [address] [place] [address] ANA LILIA SESAY [facility] Encounter Notes: All associated encounter notes This section contains the clinical notes associated to the Encounter. Date/Time Encounter Note(s) Provider Source Jun 20, 2024 11:06 AM OPTOMETRY NOTE: LOCAL TITLE: OPTOMETRY NOTE STANDARD TITLE: OPTOMETRY NOTE DATE OF NOTE: JUN 20, 2024@11:06 ENTRY DATE: JUN 20, 2024@11:06:07 AUTHOR: MONICA AMES EXP COSIGNER: MERYL ACEVES URGENCY: STATUS: COMPLETED OPTOMETRY NOTE Has ADDENDA LUDY: 09/19/2023 OPTOM REASON FOR VISIT: CEE CC: 1. stable vision since LUDY per pt - happy with results s/p CE OD - wants lined BF instead of PALs - (-)flashes/floaters/curta in over vision 2. (+)recent URI - recovered ~1.5 wks ago - doing well now Ocular meds: none Ocular ROS: 1. Cataracts OS 2. PCIOL OD (+)s/p CE x 11/07/2023 3. Presbyopia/ref error FOHx: (-) blindness (-) glaucoma (-) AMD (-) RD Cardiovascular ROS: no change from problem & medication lists CPRS Problem list, medications and allergies reviewed: [facility] Serology for Diabetes GLUCOSE 102 H mg/dL 05/30/2024 14:26 HGA1C 5.5 % 03/28/2024 18:11 Cardiovascular BP: 134/86 (06/13/2024 09:03) Pulse: 65 (06/13/2024 09:03) Neuro: Orientation: Normal Psych: Mood/Affect: Normal Depression/suicide ideation: NO * - VISUAL ACUITY - DVA WITH correction OD: 20/25- OS: 20/25- Pupils: PERRL OU (-)APD Confrontation: FTFC OU Extra-Ocular Muscles: Full OU Externals/adnexa: Unremarkable OU LMRx: 12/11/2023 (s/p CE OD) OD: [id number] 20/20 OS: +1.75 SPH 20/20 ADD: +2.50 Refraction: 06/20/2024 OD: [id number] 20/20-2 OS: +1.75 SPH 20/20-2 Add: +2.50 - SLIT LAMP EXAMINATION - Lids/Lashes/Lacrimal: (-) blepharitis OU Conjunctiva/Sclera: white/quiet OU Cornea: clear OU Ant Chamber: deep and quiet OU Iris: normal, (-)NVI OU Lens: OD: PCIOL OS: tr ant vacuole, 2+ NS, 1+ diffuse PSC Intraocular Pressures (Goldmann): 1 gtt Altafluor Date OD OS Time Meds 06/20/2024 12 14 1125 none - RETINAL EVALUATION - DFE Dilated retinal exam: 1125 Instilled 1 gtt phenylephrine 2.5%, 1 gtt tropicamide 1% OU Pt understands the side effects associated with dilation Vitreous: (+)PVD OU Optic Nerve OD: 0.30 CDR Flat, pink, distinct (-)NVD OS: 0.30 CDR Flat, pink, distinct (-)NVD Vessels: 2/3 OU, (-)NVE OU Posterior Pole: OD: (-) hemes/exudates/CWS/NVE OS: (-) hemes/exudates/CWS/NVE Macula: OD: Flat, (+)2 isolated blot hemes sup to mac along ST arcade (-)CSME OS: Flat, clear (-)CSME Periphery: OD: Flat and attached OS: Flat and attached Assessment/Plan 06/20/2024 1. Retinal hemorrhages OS - new finding on DFE today - DDx: valsalva ret, anemic ret - (+)recent URI: pt reports recovering ~1.5wks now - (+)HTN, CKD was taken off HTN meds, but self-restarted recently - Bloodwork (03/30/2024): low RBC/HGV/MCHC, high MPV - Pt ed on findings today. Recommended pt to speak to PCP regarding HTN tx/management. Continue care as directed by PCP. - Given new onset of findings, will hold on further workup. - Advised pt to RTC STAT for any sudden onset of visual changes. - RTC 4 mos for repeat DFE. Consider bloodwork and CUS at next visit if progression is noted. Monitor for changes. 2. PCIOL OD - well-centered, clear - stable BCVA today - (+)s/p CE x 11/07/2023 - Monitor for visual changes 3. Combined cataract OS - mildly visually significant, not affecting ADLs per pt - BCVA cc 20/20-2 OS - no CE indicated at this time, pt prefers to be monitored - Pt ed on use of UV protection when outdoors to slow progression of cataract development. Monitor for visual changes. 4. Presbyopia - stable BCVA/MRx - Order new BF FT28 specs (difficulty with PAL adaptation). - Pt made aware of possible 1-2 wks adapatation period. Recommended building up wear time (+2hrs/day). Pt edu on all findings and given the opportunity to have questions answered RTC 4 mos for repeat DFE or sooner LUKEN /sandra/ MONICA AMES Optometry Resident Signed: 06/20/2024 12:18 /sandra/ MERYL ACEVES OD DOBBY LOOM FIXER Cosigned: 06/20/2024 15:44 06/20/2024 ADDENDUM STATUS: COMPLETED I have reviewed the history, findings and agree with the assessment and plan as charted in CPRS on this established patient. /sandra/ MERYL ACEVES OD DOBBY LOOM FIXER Signed: 06/20/2024 15:44 MONICA AMES [facility]
--- OUTSIDE RECORDS SUMMARY | 2024-11-30 14:52 | XMS_ITS ---
Author Name [facility] [place] [facility] [place] [facility] [facility] [place] Address [address] [place] [address] Care Team Providers Care Cruller Maker Name Role Phone MARIA ELENACAMERONID Primary Care [...] PRESCRIPT ION NONE Mar 16, 2006 NONE [id number] [place] PATIENT [facility] PREFERRED PROVIDER ORGANIZAT ION (PPO) DEPAR TMENT OF DEFEN S Mar 16, 2006 [id number] [phone] [place] PATIENT MEDICARE (WNR) MEDICARE (M) PART A Nov 14, 2020 PART A [id number] [place] PATIENT MEDICARE (WNR) MEDICARE (M) PART B Nov 14, 2020 PART B [id number] SHELBY BRA PATIENT Selected Encounter This section includes the information on record at [place] for the Encounter. Date/Time Encounter Type Encounter Description Reason Provider Source Jan 30, 2024 12:56 PM Outpatient Encounter ADMIN PAT ACTIVTIES (MASNONCT) YONATHAN ELIAS Encounter Template Text not used by [place] Plan of Treatment: Future Appointments (+ 6 months) and Future Tests (+/- 45 days) The Plan of Treatment section includes future care activities for the patient from all [place] treatmentfacilities. This section includes future appointments and future orders which are active, pending or scheduled. Future Appointments This section includes appointments that were scheduled to occur 6 months from the date of the Encounter, up to a maximum of 20 appointments. The data comes from all [place] treatment facilities. Appointment Date/Time Appointment Type Appointme nt Facility Name Mar 25, 2024 10:30 AM AMBULATORY - MEDICINE . [facility] Mar 27, 2024 01:00 PM AMBULATORY - NEUROLOGY [facility] Mar 28, 2024 10:49 AM AMBULATORY - MEDICINE [facility] Apr 02, 2024 10:00 AM AMBULATORY - MEDICINE [facility] Apr 14, 2024 02:30 PM AMBULATORY - MEDICINE [facility] Apr 30, 2024 02:00 PM AM[facility]ULATORY - NONE [facility] May 06, 2024 10:30 AM [facility]ATORY - NONE [facility] May 30, 2024 10:00 AM AMBULATORY - MEDICINE . [facility] May 30, 2024 01:30 PM AMBULATORY - NONE [facility] Jun 13, 2024 09:00 AM AMBULATORY - SURGERY [facility] Jun 20, 2024 11:00 AM AMBULATORY - SURGERY [facility] Jul 09, 2024 01:00 PM AMBULATORY - SURGERY [facility] Jul 18, 2024 11:40 AM AMBULATORY - MEDICINE . [facility] Jul 29, 2024 12:00 PM AMBULATORY - NONE [facility] Active, Pending, and Scheduled Orders This section includes a listing of several types of active, pending, and scheduled orders, including clinic medications orders, diagnostic test orders, procedure orders and consult orders; where the start date of the order is 45 days before the date of the Encounter or 45 days after the date of theEncounter. The data comes from all [place] treatment facilities. Test Date/Time Test Type Test Details Facility Name Jan 02, 2024 12:00 AM Laboratory - Chemi stry Order RENAL PANEL GREEN LI/HEP BLD/PLAS PLASMA SP [facility] Social History: Smoking Status (Most current) and Tobacco Use (All prior to encounter date) This section includes the most current, and the historical, smoking and tobacco- related health factors from the [place] facility where the Encounter took place. Current Smoking Status This section includes the most current smoking, or tobacco-related health factor, from the [place] facility where the Encounter took place. Date/Time Current Smoking Status Comment Facil ity Sep 24, 2023 01:20 PM VA-TOBACCO FORMER USER [facility] Tobacco Use History This section includes a history of the smoking, or tobacco-related health factors, that were collected on or before the date of the Encounter. The data comes from the [place] facility where the Encounter took place. Date/Time Smoking Status/Tobacco Use Comment F acility Sep 24, 2023 01:20 PM VA-TOBACCO QUIT [...] ALL of a patient's completed or amended VA Advance and Rescinded Directives. The entries below indicate that a directive exists for the patient, but an actual copy is not included with this document. The data comes from all [place] facilities. Date Advance Directives Provider Source Nov 18, 2021 STATE-AUTHORIZED POR TABLE ORDERS ELIDIA NOONAN [facility] Radiology Reports: +/- 30 days [...] the Encounter. The data comes from all [place] treatment facilities. Date/Time Radiology Report Provider Source Feb 25, 2024 01:25 PM NM BONE IMAGING, W HOLE BODY: JOVANA TRINIDAD [id number] -1955 F Exm Date: FEB 25, 2024@13:25 Req Phys: SHAHIDA ARREDONDO Loc: [facility] PACT 2 PCP (Req'g Lo Img Loc: OUTSIDE [facility] Service: Unknown Screen: Patient is unable to answer or is unsure Screen Comment: OUTSIDE STUDY (Case [id number] COMPLETE) NM BONE IMAGING, WHOLE BODY (NM Detailed) CPT:32108 Reason for Study: Exam imported from outside Clinical History: Original Data for Imported Study Patient Name: JOVANA TRINIDAD Date: 1955 Sex: F Study Date: 02/25/24 Study Time: 01:25:43 Study Description: NM bone scan whole body Referring Physician: SRINIVAS MCFARLAND Series 1: 1 SR file, description: FUJI Basic Text SR for HL7 Radiological Report Series 2: 1 NM file, description: ScreenCap (Whole Body Review with Du...)01 Series 3: 1 NM file, description: ScreenCap (Spot Views) Report Status: Electronically Filed Date Reported: APR 15, 2024 Report: Electronically generated report for outside study. Impression: Electronically generated report for outside study. VERIFIED BY: / *ELECTRONICALLY FILED* [facility] Feb 23, 2024 06:[address] ABDOMEN AND PEL VIS W/O CONTRAST: JOVANA TRINIDAD BIRDIE [id number] -1955 F Exm Date: FEB 23, 2024@18:26 Req Phys: SHAHIDA ARREDONDO Loc: [facility] PACT 2 PCP (Req'g Lo Img Loc: OUTSIDE -CT Service: Unknown Screen: Patient is unable to answer or is unsure Screen Comment: OUTSIDE STUDY (Case 1158 COMPLETE) CT ABDOMEN AND PELVIS W/O CONTRAS(CT Detailed) CPT:07910 Reason for Study: Exam imported from outside Clinical History: Original Data for Imported Study Patient Name: JOVANA TRINIDAD Date: 1955 Sex: F Study Date: 02/23/24 Study Time: 06:26:50 Study Description: CT abdomen pelvis wo con Referring Physician: SRINIVAS MCFARLAND Series 1: 1 CT file, description: CT abdomen pelvis wo con Series 2: 1 SR file, description: FUJI Basic Text SR for HL7 Radiological Report Series 3: 1 CT file, description: Dose Report Series 4: 2 CT files, description: Plant Technician/Control Room Operator Series 5: 53 CT files, description: Lung Series 6: 174 CT files, description: Abdomen/Pelvis Series 7: 104 CT files, description: 2 5 X 2 5 CORONAL Series 8: 132 CT files, description: 2 5 x 2 5 SAGITTAL Report Status: Electronically Filed Date Reported: APR 15, 2024 Report: Electronically generated report for outside study. Impression: Electronically generated report for outside study. VERIFIED BY: / *ELECTRONICALLY FILED* [facility] Feb 23, 2024 03:[address] LUMBAR SPINE W/ O CONT: JOVANA TRINIDAD BIRDIE [id number] -1955 F Exm Date: FEB 23, 2024@15:20 Req Phys: SHAHIDA ARREDONDO Loc: [facility] PACT 2 PCP (Marielyq'g Lo Img Loc: OUTSIDE [facility] Service: Unknown Screen: Patient is unable to answer or is unsure Screen Comment: OUTSIDE STUDY (Case 902 COMPLETE) CT LUMBAR SPINE W/O CONT (CT Detailed) CPT:67419 Reason for Study: Exam imported from outside Clinical History: Original Data for Imported Study Patient Name: JOVANA TRINIDAD Date: 1955 Sex: F Study Date: 02/23/24 Study Time: 03:20:11 Study Description: CT lumbar spine wo con Referring Physician: SRINIVAS MCFARLAND Series 1: 1 CT file, description: CT lumbar spine wo con Series 2: 1 SR file, description: Vascular Closure Basic Text SR for HL7 Radiological Report Series 3: 1 CT file, description: Dose Report Series 4: 2 CT files, description: Plant Technician/Control Room Operator Series 5: 111 CT files, description: Soft Tissue Series 6: 111 CT files, description: Bone Series 7: 68 CT files, description: 2 5 X 2 5 CORONAL Series 8: 70 CT files, description: 2 5 x 2 5 SAGITTAL Report Status: Electronically Filed Date Reported: APR 14, 2024 Report: Electronically generated report for outside study. Impression: Electronically generated report for outside study. VERIFIED BY: / *ELECTRONICALLY FILED* [facility] Feb 23, 2024 03:[address] CERVICAL SPINE W/O CONT: JOVANA TRINIDAD BIRDIE [id number] -1955 F Exm Date: FEB 23, 2024@15:18 Req Phys: SHAHIDA ARREDONDO Pat Loc: [facility] PACT 2 PCP (Req'g Lo Img Loc: OUTSIDE [facility] Service: Unknown Screen: Patient is unable to answer or is unsure Screen Comment: OUTSIDE STUDY (Case 1156 COMPLETE) CT CERVICAL SPINE W/O CONT (CT Detailed) CPT:85781 Reason for Study: Exam imported from outside Clinical History: Original Data for Imported Study Patient Name: JOVANA TRINIDAD Date: 1955 Sex: F Study Date: 02/23/24 Study Time: 03:18:11 Study Description: CT cervical spine wo con Referring Physician: SRINIVAS MCFARLAND Series 1: 1 CT file, description: CT cervical spine wo con Series 2: 1 SR file, description: Vascular Closure Basic Text SR for HL7 Radiological Report Series 3: 2 CT files, description: Plant Technician/Control Room Operator Series 4: 1 CT file, description: Dose Report Series 5: 70 CT files, description: soft tissue Series 6: 279 CT files, description: C/S Series 7: 107 CT files, description: 1 25 X 1 25 CORONAL BONE Series 8: 108 CT files, description: 1 25 X 1 25 SAGITTAL BONE Series 9: 147 CT files, description: 1 25 x 1 25 axial bone Report Status: Electronically Filed Date Reported: APR 15, 2024 Report: Electronically generated report for outside study. Impression: Electronically generated report for outside study. VERIFIED BY: / *ELECTRONICALLY FILED* [facility] Feb 23, 2024 03:[address] HEAD W/O CONT: JOVANA TRINIDAD BIRDIE [id number] -1955 F Exm Date: FEB 23, 2024@15:14 Req Phys: SHAHIDA ARREDONDO Pat Loc: [facility] PACT 2 PCP (Req'g Lo Img Loc: OUTSIDE [facility] Service: Unknown Screen: Patient is unable to answer or is unsure Screen Comment: OUTSIDE STUDY (Case 911 COMPLETE) CT HEAD W/O CONT (CT Detailed) CPT:33173 Reason for Study: Exam imported from outside Clinical History: Original Data for Imported Study Patient Name: JOVANA TRINIDAD Date: 1955 Sex: F Study Date: 02/23/24 Study Time: 03:14:49 Study Description: CT brain wo con Referring Physician: SRINIVAS MCFARLAND Series 1: 1 CT file, description: CT brain wo con Series 2: 1 SR file, description: FUJI Basic Text SR for HL7 Radiological Report Series 3: 1 CT file, description: Dose Report Series 4: 1 CT file, description: Plant Technician/Control Room Operator Series 5: 64 CT files, description: Bone Series 6: 64 CT files, description: Brain Series 7: 89 CT files, description: 2 5 x 2 5 Brain Cor Series 8: 78 CT files, description: 2 5 x 2 5 Sagittal Brain Report Status: Electronically Filed Date Reported: APR 14, 2024 Report: Electronically generated report for outside study. Impression: Electronically generated report for outside study. VERIFIED BY: / *ELECTRONICALLY FILED* [facility] Feb 23, 2024 03:06 PM HIP, UNILAT, 2-3 V IEWS RIGHT W OR W/O PELVIS: JOVANA TRINIDAD BIRDIE [id number] -1955 F Exm Date: FEB 23, 2024@15:06 Req Phys: SHAHIDA ARREDONDO Pat Loc: [facility] PACT 2 PCP (Req'g Lo Img Loc: OUTSIDE -GENERAL RAD Service: Unknown Screen: Patient is unable to answer or is unsure Screen Comment: OUTSIDE STUDY (Case 1164 COMPLETE) HIP, UNILAT, 2-3 VIEWS RIGHT W OR(RAD Detailed) CPT:34793 Reason for Study: Exam imported from outside Clinical History: Original Data for Imported Study Patient Name: JOVANA TRINIDAD Date: 1955 Sex: F Study Date: 02/23/24 Study Time: 03:05:11 Study Description: XR hip RT 2V w AP pelvis Referring Physician: SRINIVAS MCFARLAND Series 1: 1 SR file, description: FUJI Basic Text SR for HL7 Radiological Report Series 2: 1 CR file, description: PELVIS AP Series 3: 1 CR file, description: PELVIS AP Series 4: 1 CR file, description: PELVIS AP Report Status: Electronically Filed Date Reported: APR 15, 2024 Report: Electronically generated report for outside study. Impression: Electronically generated report for outside study. VERIFIED BY: / *ELECTRONICALLY FILED* [facility] Feb 23, 2024 03:05 PM CHEST X-RAY, 2 VIE WS: JOVANA TRINIDAD BIRDIE [id number] -1955 F Exm Date: FEB 23, 2024@15:05 Req Phys: SHAHIDA ARREDONDO Loc: [facility] CLR PACT 2 PCP (Req'g Lo Img Loc: OUTSIDE -GENERAL RAD Service: Unknown Screen: Patient is unable to answer or is unsure Screen Comment: OUTSIDE STUDY (Case 1163 COMPLETE) CHEST X-RAY, 2 VIEWS (RAD Detailed) CPT:91717 Reason for Study: Exam imported from outside Clinical History: Original Data for Imported Study Patient Name: JOVANA TRINIDAD Date: 1955 Sex: F Study Date: 02/23/24 Study Time: 03:05:11 Study Description: XR chest 2V Referring Physician: SRINIVAS MCFARLAND Series 1: 1 SR file, description: FUJI Basic Text SR for HL7 Radiological Report Series 2: 1 CR file, description: CHEST PA Series 3: 1 CR file, description: CHEST LAT Report Status: Electronically Filed Date Reported: APR 15, 2024 Report: Electronically generated report for outside study. Impression: Electronically generated report for outside study. VERIFIED BY: / *ELECTRONICALLY FILED* [facility] Pathology Reports: +/- 30 days of [...] the Encounter. The data comes from all [facility] facilities. Date/Time Pathology Report Provider Source Jan 31, 2024 01:43 PM LR SURGICAL PATHOL OGY REPORT: LOCAL TITLE: LR SURGICAL PATHOLOGY REPORT STANDARD TITLE: PATHOLOGY PROCEDURE NOTE DATE OF NOTE: JAN 31, 2024@13:43:06 ENTRY DATE: JAN 31, 2024@13:43:06 AUTHOR: KENTON CAER: URGENCY: STATUS: COMPLETED $APHDR - - - - - - - - - - - - - - - - - - - - - - - - - - - - - - - - - - - - - - - - MEDICAL RECORD SURGICAL PATHOLOGY - - - - - - - - - - - - - - - - - - - - - - - - - - - - - - - - - - - - - - - - PATHOLOGY REPORT Accession No. SP [id number] - - - - - - - - - - - - - - - - - - - - - - - - - - - - - - - - - - - - - - - - $TEXT Submitted by: GABBI LYON Date obtained: Jan 30, 2024 14:15 - - - - - - - - - - - - - - - - - - - - - - - - - - - - - - - - - - - - - - - - Specimen (Received Jan 30, 2024 14:17): A. ASCENDING COLON POLYP B. TRANSVERSE COLON POLYPS X 2 - - - - - - - - - - - - - - - - - - - - - - - - - - - - - - - - - - - - - - - - BRIEF CLINICAL HISTORY: history of colon polyps - - - - - - - - - - - - - - - - - - - - - - - - - - - - - - - - - - - - - - - - PREOPERATIVE DIAGNOSIS: colon polyps - - - - - - - - - - - - - - - - - - - - - - - - - - - - - - - - - - - - - - - - OPERATIVE FINDINGS: colon polyps - - - - - - - - - - - - - - - - - - - - - - - - - - - - - - - - - - - - - - - - POSTOPERATIVE DIAGNOSIS: colon polyps Surgeon/physician: GABBI CHANDLER MD =-=-=-=-=-=-=-=-=-=-=-=-=- =-=-=-=-=-=-=-=-=-=-=-=-=- =-=-=-=-=-=-=-=-=-=-=-=-=- = - - - - - - - - - - - - - - - - - - - - - - - - - - - - - - - - - - - - - - - - PATHOLOGY REPORT Accession No. SP [id number] - - - - - - - - - - - - - - - - - - - - - - - - - - - - - - - - - - - - - - - - GROSS DESCRIPTION: Ciara Ramos, 01/30/24 The specimen is received in formalin in two containers, each labeled with the patient's full name and SSN. A. Labeled as Ascending Colon Polyp is one martinez tissue fragment measuring 0.5 x 0.3 x 0.2cm, which is submitted in toto in A1. B. Labeled as Transverse Colon Polyps x 2 are two martinez tissue fragments measuring 0.4 x 0.3 x 0.2cm and 0.8 x 0.5 x 0.3cm, which are submitted in toto in B1. MICROSCOPIC EXAM: Microscopic examination substantiates the cited diagnoses. DIAGNOSIS: LARGE INTESTINE, ASCENDING COLON, POLYP, BIOPSY (A): - TUBULAR ADENOMA - NO HIGH-GRADE DYSPLASIA OR MALIGNANCY LARGE INTESTINE, TRANSVERSE COLON, POLYPS X 2, BIOPSIES (B): - TUBULAR ADENOMAS - NO HIGH-GRADE DYSPLASIA OR MALIGNANCY /sandra/ KENTON CA PATHOLOGIST Signed Jan 31, 2024@13:43 Performing Laboratory: Surgical Pathology Report Performed By: [facility], [address] CLIA# [id number] [address] [facility] [address] [place] [address] $FTR - - - - - - - - - - - - - - - - - - - - - - - - - - - - - - - - - - - - - - - - (End of report) KENTON CA MD nw Date Jan 31, 2024 - - - - - - - - - - - - - - - - - - - - - - - - - - - - - - - - - - - - - - - - JOVANA TRINIDAD STANDARD FORM 515 ID:[id number] SEX:F :1955 AGE: 68 LOC:GILABA2 PCP: Shahida Arredondo MD /sandra/ K[place] CA PATHOLOGIST Signed: 01/31/2024 13:43 KENTON CA [facility] Encounter Notes: All associated encounter notes This section contains the clinical notes associated to the Encounter. Date/Time Encounter Note(s) Provider Source Jan 30, 2024 12:56 PM ANESTHESIOLOGY SUKHDEV WSHEET: LOCAL TITLE: ANES INTRA-OP FLOWSHEET ST STANDARD TITLE: ANESTHESIOLOGY FLOWSHEET DATE OF NOTE: JAN 30, 2024@12:56 ENTRY DATE: JAN 30, 2024@12:56:56 AUTHOR: YONATHAN ELIAS EXP COSIGNER: URGENCY: STATUS: COMPLETED Patient: JOVANA TRINIDAD SSN: [id number] Date of Operation: 01/30/2024 Surgery Start Time: Surgery End Time: Anesthesia Care Start: 01/30/2024 12:06 Anesthesia Care End: 01/30/2024 12:56 Anesthesia Method: Monitored 01/30/2024 12:06 (Primary), Level Of Consciousness: Sedated, Monitors Applied, Oxygen Therapy: Mask, EtCO2 Verified: Waveform Positioning: Head Neutral, Head And Neck In Alignment With Spine, Pressure Points Padded & Checked, Eyes, Ears And Nose Free Of Pressure, Breasts Free Of Pressure ASA Number: 4 Procedure: Colonoscopy Diagnosis: Screening Holding, Anesthesia, PACU Drugs: ------- Lidocaine: 100 mg Propofol: 130 mg Propofol gtt: 346.286 mg Holding, Anesthesia, PACU Fluids: -------- Normal Saline: 300 ml Resources: Headrest - Pillow Staff: --------- YONATHAN MO PRIN. ANES. ROBINSON, RAIME, ANES. SUPER. MATT GONZALEZ ANES. SUPER. Anesthesia Procedure: --- Procedure 01/30/2024 12:06 In Situ, Line Number: 1, Site: Arm, Laterality: Right, Catheter Type: Angio, Catheter Size: 20 Ga Securement: Taped, Sterile Occlusive Dressing Procedure Date: 01/30/2024 Procedure Start Time: 01/30/2024 12:12 Procedure End Time: 01/30/2024 12:54 /sandra/ YONATHAN ELIAS CRNA, Anesthesiology Signed: 01/30/2024 12:56 YONATHAN ELIAS [facility]
--- OUTSIDE RECORDS SUMMARY | 2024-11-30 14:52 | XMS_ITS | Encounter Summary ---
Author Name [facility] [facility] [place] [facility] [place] Address [address] [place] [address] Care Team Providers Care Mass Spectrometry Specialist Name Role Phone MARIA ELENACAMERONID Primary Care [...] PRESCRIPT ION NONE Mar 16, 2006 NONE [id number] [place] PATIENT [facility] PREFERRED PROVIDER ORGANIZAT ION (PPO) DEPAR TMENT OF DEFEN S Mar 16, 2006 [id number] [place] PATIENT MEDICARE (WNR) MEDICARE (M) PART A Nov 14, 2020 PART A [id number] [phone] SHELBY BRA PATIENT MEDICARE (WNR) MEDICARE (M) PART B Nov 14, 2020 PART B [id number] [place] PATIENT Selected Encounter This section includes the information on record at [place] for the Encounter. Date/Time Encounter Type Encounter Description Reason Provider Source Jul 18, 2024 11:40 AM OFFICE O/P EST MOD 30 MIN RENAL/NEPHROL(EXCE PT DIALYSIS) ICD-10-CM N18.4 Chronic kidney disease, stage 4 (severe) IRAJ MARIA I Oscar Encounter Template Text not used by [place] Assessments - Encounter Diagnoses This section includes the primary and secondary diagnoses documented for the Encounter. Date/Time Primary/Secondary Diagnosis Diagnosis Name Provider Source Jul 18, 2024 11:32 AM PRIMARY Chronic kidney disease, stage 4 (severe) KURTIS MARIA I [facility] Jul 18, 2024 11:32 AM SECONDARY Analgesic nephropathy KURTIS MARIA I [facility] Jul 18, 2024 11:32 AM SECONDARY Anemia in chronic kidney disease KURTIS MARIA I [facility] Jul 18, 2024 11:32 AM SECONDARY Essential (primary) hypertension KURTIS MARIA I [facility] Jul 18, 2024 11:32 AM SECONDARY Hypocalcemia [facility] Jul 18, 2024 11:32 AM SECONDARY Secondary hyperparathyroidism of renal origin [facility]IS MAR[facility] Plan of Treatment: Future Appointments (+ 6 months) and Future Tests (+/- 45 days) The Plan of Treatment section includes [facility] care activities [facility] the [facility] [place] [facility] This section includes future appointments and future orders which are active, pending or scheduled. Future Appointments This section includes appointments that were scheduled to occur 6 months from the date of the Encounter, up to a maximum of 20 appointments. The data comes from all [place] treatment facilities. Appointment Date/Time Appointment Type Appointme nt Facility Name Jul 29, 2024 12:00 PM AMBULATORY - NONE [facility] Aug 11, 2024 12:20 PM AMBULATORY - MEDICINE [facility] September 09, 2024 12:00 PM AMBULATORY - NONE [facility] Oct 06, 2024 01:20 PM AMBULATORY - SURGERY [facility] Oct 21, 2024 11:30 AM AMBULATORY - MEDICINE [facility] Oct 28, 2024 01:45 PM AMBULATORY - MEDICINE [facility] Oct 29, 2024 01:30 PM AMBULATORY - NONE [facility] Oct 29, 2024 02:00 PM AMBULATORY - NONE . [facility] Jordan [facility] Nov 26, 2024 11:00 AM AMBULATORY - MEDICINE [facility] Nov 28, 2024 09:00 AM AMBULATORY - NONE [facility] Nov 28, 2024 10:00 AM AMBULATORY - NONE . FARAZ Jordan [facility] Dec 24, 2024 09:30 AM AMBULATORY - NONE [facility] Dec 25, 2024 11:00 AM AMBULATORY - REHAB MEDICIN E [facility] Lab Results: +/- 30 days of the encounter This section includes the Chemistry and Hematology Lab Results on record with [place] for the patient. Radiology Reports and Pathology Reports are provided separately, in subsequent sections. Lab Results This section contains the Chemistry/Hematology Results that were resulted 30 days before or 30 daysafter the date of the Encounter. Date/Time Source Result Type Result - Unit Interpretation Reference Range Specimen Type Comment Jul 18, 2024 12:04 PM [facility] MICRAL/CREAT PROFILE (STL) URINE Specimen Typ e: URINE No comment entered. Ordering Provider: MERRILL MARIA I Report Released Date/Time: Jul 18, 2024 11:21 AM Reporting Lab: [facility] [address] [facility] [facility] [address] Performing Lab: [place] [id number] [facility] [address] URINE ALBUMIN (PB-STL) 340.6 mg/L uACR (STL) 2183 mg/g H 0-29 CREATININE URINE/OTHERS 15.6 mg/dL L 47-11 0 Jul 18, 2024 11:46 AM [facility] IRON/TIBC PROFILE SERUM Specimen Type: SERUM No comment entered. Ordering Provider: MERRILL MARIA I Report Released Date/Time: Jul 18, 2024 11:21 AM Reporting Lab: [address] [address] Performing Lab: [address] [address] TIBC 314 ug/dL 250-450 TRANSFERRIN 251 mg/dL 173-360 IRON SATURATION 25 20-50 IRON 78 ug/dL 50-170 Jul 18, 2024 11:46 AM [facility] FERRITIN SERUM Specimen Type: SERUM No comment entered. Ordering Provider: MERRILL MARIA I Report Released Date/Time: Jul 18, 2024 11:21 AM Reporting Lab: [address] [address] Performing Lab: [address] [address] FERRITIN 314.64 ng/mL H 10-204 Jul 18, 2024 11:46 AM [facility] CBC BLOOD Specimen Type: BLOOD No comment entered. Ordering Provider: MERRILL MARIA I Report Released Date/Time: Jul 18, 2024 11:21 AM Reporting Lab: [address] [address] Performing Lab: [address] [address] WBC 7.1 10*3/uL 3.6-11.2 RBC 3.87 10*6/uL [...] 0.00-0. 20 Jul 18, 2024 11:46 AM [facility] VITAMIN D, 25-HYDROXY SERUM Specimen Type: SE RUM No comment entered. Ordering Provider: MERRILL MARIA I Report Released Date/Time: Jul 18, 2024 11:21 AM Reporting Lab: [place] [address] [facility] [address] Performing Lab: [address] [address] VITAMIN D, 25-HYDROXY 42.5 ng/mL 30-96 Jul 18, 2024 11:46 AM [facility] PTH, INTACT (STL) SERUM Specimen Type: SERUM No comment entered. Ordering Provider: MERRILL MARIA I Report Released Date/Time: Jul 18, 2024 11:21 AM Reporting Lab: [place] [address] [facility] [address] Performing Lab: [address] [address] PTH, INTACT (STL) 31.50 pg/mL 8.7-77.7 Jul 18, 2024 11:46 AM [facility] CYSTATIN C EGFR PANELS (STL-PB-MA) PLASMA Spec imen Type: PLASMA Comment: Choice of which of the reported eGFR values to use depends on the clinical situation. For example, for patients with severe muscle wasting or reduced muscle mass, eGFR calculated using the 2012 cystatin equation may be preferred. Ordering Provider: MERRILL MARIA I Report Released Date/Time: Jul 18, 2024 11:21 AM Reporting Lab: [facility] [address] [facility] [address] Performing Lab: [place] [address] [facility] [address] CYSTATIN C 2.90 mg/L H 0.57-1.80 CKD-EPI CYSTATIN C (2012) 17.1 >60 CKD-EPI CREAT-CYSC (2020) 19.4 >60 CREATININE (STL) 2.25 mg/dL H 0.6-1.1 Jul 18, 2024 11:46 AM [facility] RENAL PANEL PLASMA Specimen Type: PLASM A Comment: No hemolysis noted. Ordering Provider: MERRILL MARIA I Report Released Date/Time: Jul 18, 2024 11:21 AM Reporting Lab: [facility] [address] [facility] [address] Performing Lab: [address] [address] CREATININE 2.24 mg/dL H 0.6-1.1 UREA NITROGEN 41.7 mg/dL H 9.0-25.0 GLUCOSE 89 mg/dL 72-99 SODIUM 140 meq/L 136-145 POTASSIUM 4.5 meq/L 3.5-5 CHLORIDE 105 meq/L 98-107 CARBON DIOXIDE 23 meq/L 22-31 CALCIUM 8.2 mg/dL L 8.4-10.4 PHOSPHOROUS 5.5 mg/dL H 2.3-4.7 ALBUMIN 4.5 g/dL 3.4-5 EGFR (CKD-EPI 2020) 23.3 >60 Jun 19, 2024 06:30 AM [facility] 24H UR URIC ACID 24-HOUR URINE Specimen Type: 24-HO UR URINE No comment entered. Ordering Provider: MAN ARREDONDO Report Released Date/Time: May 30, 2024 10:28 AM Reporting Lab: [facility] [address] [facility] [address] Performing Lab: [facility] [address] [facility] [address] VOLUME 2006 mL URIC ACID URINE/OTHERS 181 65-630 Vital Signs: All taken on the encounter date This section contains inpatient and outpatient Vital Signs collected on the date of the Encounter. Date/Time Temperature Pulse Blood Pressure Respiratory Rate SP02 Pain Height Weight Body Mass Index Source Jul 18, 2024 11:18 AM 157/94 [facility] Jul 18, 2024 11:18 AM 98 69 181/101 16 95 130.3 22 [facility] Social History: Smoking Status (Most current) and Tobacco Use (All prior to encounter date) This section includes the most current, and the historical, smoking and tobacco- related health factors from the [place] facility where the Encounter took place. Current Smoking Status This section includes the most current smoking, or tobacco-related health factor, from the [place] facility where the Encounter took place. Date/Time Current Smoking Status Comment Facil ity Mar 28, 2024 12:54 PM ORYX ADMIT TOBACCO SCREEN REFUSED [facility] Tobacco Use History This section includes a history of the smoking, or tobacco-related health factors, that were collected on or before the date of the Encounter. The data comes from the [place] facility where the Encounter took place. Date/Time Smoking Status/Tobacco Use Comment F acility Sep 24, 2023 01:20 PM VA-TOBACCO FORMER USER [facility] Sep 24, 2023 01:20 PM VA-TOBACCO QUIT 15 YRS OR MORE [facility] Apr 06, 2021 07:54 PM ORYX ADMIT TOBACCO SCREEN NO [facility] Jul 26, 2020 09:33 AM VA-TOBACCO FORMER USER [facility] Jul 26, 2020 09:33 AM VA-TOBACCO QUIT 15 YRS OR MORE [facility] Aug 13, 2019 05:31 PM ORYX ADMIT TOBACCO SCREEN NO [facility] Nov 26, 2008 11:49 AM QUIT TOBACCO >7 YEARS AGO [facility] Advance Directives: All historical and current Section Date Range: From patient's date of to the date document was created. This section includes ALL of a patient's completed or amended [place] Advance and Rescinded Directives. The entries below indicate that a directive exists for the patient, but an actual copy is not included with this document. The data comes from all [place] facilities. Date Advance Directives Provider Source Nov 18, 2021 STATE-AUTHORIZED POR TABLE ORDERS ELIDIA NOONAN [facility] Encounter Notes: All associated encounter notes This section contains the clinical notes associated to the Encounter. Date/Time Encounter Note(s) Provider Source Jul 18, 2024 11:15 AM NEPHROLOGY OUTPATIENT NOTE: LOCAL TITLE: NEPHROLOGY OUTPATIENT FOLLOW UP [facility] STANDARD TITLE: NEPHROLOGY OUTPATIENT NOTE DATE OF NOTE: JUL 18, 2024@11:15 ENTRY DATE: JUL 18, 2024@11:15:47 AUTHOR: MERRILL MARIA I EXP COSIGNER: URGENCY: STATUS: COMPLETED 68 yo female here for management of CKD and HTN Admitted last Mar with dehydration and orthostatic hypotension. BP meds stopped. Treated for UTI in May. Neg cystoscopy 07/09 as evaluation for mild R hydro and hematuria. Good appetite and enery level. No perioral numbness, cramping of hands. BP readings are 120s/80 after swhe resumed atenolol. No dizziness. No change in urination. No stones passed, gross hematuria or abd/flank pain. No NSAID use. Non-smoker Exercise tolerance is > 3 blocks-no SOB or chest pain or claudication sxs Meds: I have reviewed the list with the patient. List is accurate plus atenolol. Exam General appearance-well developed well kempt in NAD BP-134/86 P-65 Lungs-clear CV-S1, S2 RR no gallop or murmur heard; no inc JVP or carotid bruits [id number], no bruits Ext-no pedal edema Labs: Cr 2.31 05/2024 c/w similar values back to 2022 with some fluctuations K-3.9 CO2-25 Ca-7.5; Albumin 4.0 in 03/2024;in 11/2023 PO4-5.3 PTH-42 Vit D-42 Hgb 10.0; in 05/2022 when last checked Ferritin-44 TSAT 23% A1C 5.5% Urine albumin/Cr ratio 26 when last checked in 2020 Renal imaging: U/S 03/2024 Kidneys 9.8/10 cm R/L with bilateral cortical thinning. Mild R hydronehrosis; bilateral cysts which on MRI 05/2024 are benign Bosniak 1 and 2. 1. 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 EGFR ~ 22-23 (stage 4). check renal panel and albumin excretion to assess progression. If albuminuria increased will discuss with paient adding ARB if tolerated in terms of BP. 2. HTN on atenolol 50 as sole agent. BP good range. No change in regimen at this time. 3. Anemia-mild, due to CKD. No indication for ARNAV at this level. Fe stores adequate in 2022, check CBC and Fe stores. Continue po Fe. 4. Hyperparathyroidism-due to CKD. Parameters acceptable for the level of EGFR. Low PO4 diet reviewed. Hx hypoparathyroidism complicated by high Ca/nephrocalcinosis many yrs ago due to hypercalcemia from rx. Goal is to keep Ca low normal to limit Ca excretion though this becomong less of an issue as EGFR is significantly reduced. check Ca and adjust dose of Ca if still low. continue cholecalciferol. On the date of the encounter, I spent 15 minutes on some or all of the following: chart review, history, physical examination, treatment planning, education and counseling of the patient/family/personal care assistant, placing orders, communicating with other health care providers, and documentation in the electronic health record. /sandra/ Merrill Maria M.D. Staff Physician- Nephrology Signed: 07/18/2024 11:33 MERRILL MARIA I [facility]
--- OUTSIDE RECORDS SUMMARY | 2024-11-30 14:52 | XMS_ITS ---
Author Name [facility] [place] [facility] [place] Address [address] [place] [address] Care Team Providers Care Machine Long Goods Helper Name Role Phone MARIA ELENA SHAHIDA Primary Care Provider Unavailabl e Insurance Providers: [...] PRESCRIPT ION NONE Mar 16, 2006 NONE [id number] [place] PATIENT [employer] PREFERRED PROVIDER ORGANIZAT ION (PPO) DEPAR TMENT OF DEFEN S Mar 16, 2006 [id number] [place] PATIENT MEDICARE (WNR) MEDICARE (M) PART A Nov 14, 2020 PART A [id number] [place] PATIENT MEDICARE (WNR) MEDICARE (M) PART B Nov 14, 2020 PART B [id number] TRINIDADSMITH PATIENT Selected Encounter This section includes the information on record at [place] for the Encounter. Date/Time Encounter Type Encounter Description Reason Provider Source Jan 30, 2024 11:15 AM OFF/OP EST MAY X REQ PHY/QHP GI ENDOSCOPY ICD-10-CM Z12.11 Encounter for screening for malignant neoplasm of colon DEL CHANDLER IHOscar Encounter Template Text not used by [place] Assessments - Encounter Diagnoses This section includes the primary and secondary diagnoses documented for the Encounter. Date/Time Primary/Secondary Diagnosis Diagnosis Name Provider Source Mar 10, 2024 09:29 AM PRIMARY Encounter for screening for malignant neoplasm of colon GABBI CHANDLER [facility] Mar 10, 2024 09:29 AM SECONDARY Polyp of colon GABBI CHANDLER [facility] Plan of Treatment: Future Appointments (+ 6 months) and Future Tests (+/- 45 days) The Plan of Treatment section includes future care activities for the patient from all [place] treatmentfacilities. This section includes future appointments and future orders which are active, pending or scheduled. Future Appointments This section includes appointments that were scheduled to occur 6 months from the date of the Encounter, up to a maximum of 20 appointments. The data comes from all [place] treatment facilities. Appointment Date/Time Appointment Type Appointme nt Facility Name Mar 25, 2024 10:30 AM AMBULATORY - MEDICINE . [facility] Mar 27, 2024 01:00 PM AMBULATORY - NEUROLOGY [facility] Mar 28, 2024 10:49 AM AMBULATORY - MEDICINE [facility] Apr 02, 2024 10:00 AM AMBULATORY - MEDICINE [facility] Apr 14, 2024 02:30 PM AMBULATORY - MEDICINE [facility] Apr 30, 2024 02:00 PM AMBULATORY - NONE [facility] May 06, 2024 10:30 AM AMBULATORY - NONE [facility] May 30, 2024 10:00 AM AMBULATORY - MEDICINE [facility] May 30, 2024 01:30 PM [facility]ATORY [facility] NONE [facility] Jun 13, 2024 09:00 AM AMBULATORY - SURGERY [facility] Jun 20, 2024 11:00 AM AMBULATORY - SURGERY [facility] Fabián [facility] Jul 09, 2024 01:00 PM AMBULATORY - SURGERY [facility] Fabián [facility] Jul 18, 2024 11:40 AM AMBULATORY - MEDICINE [facility] Jul 29, 2024 12:00 PM AMBULATORY - NONE [facility] Active, Pending, and Scheduled Orders This section includes a listing of several types of active, pending, and scheduled orders, including clinic medications orders, diagnostic test orders, procedure orders and consult orders; where the start date of the order is 45 days before the date of the Encounter or 45 days after the date of theEncounter. The data comes from all [place] treatment facilities. Test Date/Time Test Type Test Details Facility Name Jan 02, 2024 12:00 AM Laboratory - Chemi stry Order RENAL PANEL GREEN LI/HEP BLD/PLAS PLASMA SP [facility] Social History: Smoking Status (Most current) and Tobacco Use (All prior to encounter date) This section includes the most current, and the historical, smoking and tobacco- related health factors from the [place] facility where the Encounter took place. Current Smoking Status This section includes the most current smoking, or tobacco-related health factor, from the [place] facility where the Encounter took place. Date/Time Current Smoking Status Comment Abbie castillo Sep 24, 2023 01:20 PM VA-TOBACCO QUIT 15 YRS OR MORE [facility] Tobacco Use History This section includes a history of the smoking, or tobacco-related health factors, that were collected on or before the date of the Encounter. The data comes from the [place] facility where the Encounter took place. Date/Time Smoking Status/Tobacco Use Comment F [facility]vance Sep 24, 2023 01:20 PM VA-TOBACCO QUIT 15 YRS OR MORE [facility] Apr 06, 2021 07:54 PM ORYX ADMIT TOBACCO SCREEN NO [facility] Jul 26, 2020 09:33 AM VA-TOBACCO FORMER USER [facility] Jul 26, 2020 09:33 AM VA-TOBACCO QUIT 15 YRS OR MORE [facility] Aug 13, 2019 05:31 PM ORYX ADMIT TOBACCO SCREEN NO [facility] Nov 26, 2008 11:49 AM QUIT TOBACCO >7 YEARS AGO [facility] Advance Directives: All historical and current Section Date Range: From patient's date of to the date document was created. This section includes ALL of a patient's completed or amended [place] Advance and Rescinded Directives. The entries below indicate that a directive exists for the patient, but an actual copy is not included with this document. The data comes from all [place] facilities. Date Advance Directives Provider Source Nov 18, 2021 STATE-AUTHORIZED POR TABLE ORDERS ELIDIA NOONAN [facility] Radiology Reports: +/- 30 days of [...] the Encounter. The data comes from all [place] treatment facilities. Date/Time Radiology Report Provider Source Feb 25, 2024 01:25 PM NM BONE IMAGING, W HOLE BODY: HALI TRINIDAD BIRDIE [id number] -1955 F Exm Date: FEB 25, 2024@13:25 Req Phys: SHAHIDA ARREDONDO Loc: [facility] PACT 2 PCP (Req'g Img Loc: OUTSIDE -NUCLEAR MED Service: Unknown Screen: Patient is unable to answer or is unsure Screen Comment: OUTSIDE STUDY (Case [id number] COMPLETE) NM BONE IMAGING, WHOLE BODY (NM Detailed) CPT:55787 Reason for Study: Exam imported from outside [...] VERIFIED BY: / *ELECTRONICALLY FILED* [facility] Feb 23, 2024 06:[address] ABDOMEN AND PEL VIS W/O CONTRAST: HALI TRINIDAD BIRDIE [id number] -1955 F Exm Date: FEB 23, 2024@18:26 Req Phys: SHAHIDA ARREDONDO Loc: [facility] PACT 2 PCP (Req'g Lo Img Loc: OUTSIDE [facility] Service: Unknown Screen: Patient is unable to answer or is unsure Screen Comment: OUTSIDE STUDY (Case [id number] COMPLETE) CT ABDOMEN AND PELVIS W/O CONTRAS(CT Detailed) CPT:80011 Reason for Study: Exam imported from outside [...] Report Series 4: 2 CT files, description: Creative Services Producer Series 5: 53 CT files, description: Lung [...] VERIFIED BY: / *ELECTRONICALLY FILED* [facility] Feb 23, 2024 03:[address] LUMBAR SPINE W/ O CONT: HALI TRINIDAD [id number] -1955 F Exm Date: FEB 23, 2024@15:20 Req Phys: SHAHIDA ARREDONDO Pat Loc: - CLR PACT 2 PCP (Req'g Lo Img Loc: OUTSIDE [facility] Service: Unknown Screen: Patient is unable to answer or is unsure Screen Comment: OUTSIDE STUDY (Case [id number] COMPLETE) CT LUMBAR SPINE W/O CONT (CT Detailed) CPT:65939 Reason for Study: Exam imported from outside [...] Report Series 4: 2 CT files, description: Creative Services Producer Series 5: 111 CT files, description: Soft [...] VERIFIED BY: / *ELECTRONICALLY FILED* [facility] Feb 23, 2024 03:[address] CERVICAL SPINE W/O CONT: HALI TRINIDAD BIRDIE [id number] -1955 F Exm Date: FEB 23, 2024@15:18 Req Phys: SHAHIDA ARREDONDO Loc: [facility] PACT 2 PCP (Jared Elizalde Img Loc: OUTSIDE [facility] Service: Unknown Screen: Patient is unable to answer or is unsure Screen Comment: OUTSIDE STUDY (Case 1156 COMPLETE) CT CERVICAL SPINE W/O CONT (CT Detailed) CPT:69432 Reason for Study: Exam imported from outside Clinical History: Original Data for Imported Study Patient Name: HALI TRINIDAD Date: 1955 Sex: F Study Date: 02/23/24 Study Time: 03:18:11 Study Description: CT cervical spine wo con Referring Physician: SRINIVAS MCFARLAND Series 1: 1 CT file, description: CT cervical spine wo con Series 2: 1 SR file, description: Appointedd Basic Text SR for HL7 Radiological Report Series 3: 2 CT files, description: Creative Services Producer Series 4: 1 CT file, description: Dose [...] VERIFIED BY: / *ELECTRONICALLY FILED* [facility] Feb 23, 2024 03:[address] HEAD W/O CONT: HALI TRINIDAD BIRDIE [id number] -1955 F Exm Date: FEB 23, 2024@15:14 Req Phys: SHAHIDA ARREDONDO Loc: [facility] PACT 2 PCP (Req'g Lo Img Loc: OUTSIDE -CT Service: Unknown Screen: Patient is unable to answer or is unsure Screen Comment: OUTSIDE STUDY (Case [id number] COMPLETE) CT HEAD W/O CONT (CT Detailed) CPT:82839 Reason for Study: Exam imported from outside Clinical History: Original Data for Imported Study Patient Name: HALI TRINIDAD Date: 1955 Sex: F Study Date: 02/23/24 Study Time: 03:14:49 Study Description: CT brain wo con Referring Physician: SRINIVAS MCFARLAND Series 1: 1 CT file, description: CT brain wo con Series 2: 1 SR file, description: Appointedd Basic Text SR for HL7 Radiological Report Series 3: 1 CT file, description: Dose Report Series 4: 1 CT file, description: Creative Services Producer Series 5: 64 CT files, description: Bone [...] VERIFIED BY: / *ELECTRONICALLY FILED* [facility] Feb 23, 2024 03:06 PM HIP, UNILAT, 2-3 V IEWS RIGHT W OR W/O PELVIS: HALI TRINIDAD BIRIDE [id number] -1955 F Exm Date: FEB 23, 2024@15:06 Req Phys: SHAHIDA ARREDONDO Loc: [facility] PACT 2 PCP (Req'g Lo Img Loc: OUTSIDE -GENERAL RAD Service: Unknown Screen: Patient is unable to answer or is unsure Screen Comment: OUTSIDE STUDY (Case 1164 COMPLETE) HIP, UNILAT, 2-3 VIEWS RIGHT W OR(RAD Detailed) CPT:00867 Reason for Study: Exam imported from outside [...] VERIFIED BY: / *ELECTRONICALLY FILED* [facility] Feb 23, 2024 03:05 PM CHEST X-RAY, 2 VIE WS: HALI TRINIDAD BIRDIE [id number] -1955 F Exm Date: FEB 23, 2024@15:05 Req Phys: SHAHIDA ARREDONDO Pat Loc: [facility] PACT 2 PCP (Req'g Lo Img Loc: OUTSIDE -GENERAL RAD Service: Unknown Screen: Patient is unable to answer or is unsure Screen Comment: OUTSIDE STUDY (Case 1163 COMPLETE) CHEST X-RAY, 2 VIEWS (RAD Detailed) CPT:62982 Reason for Study: Exam imported from outside [...] VERIFIED BY: / *ELECTRONICALLY FILED* [facility] Pathology Reports: +/- 30 [...] the Encounter. The data comes from all [place] treatment facilities. Date/Time Pathology Report Provider Source Jan 31, 2024 01:43 PM LR SURGICAL PATHOL OGY REPORT: LOCAL TITLE: LR SURGICAL PATHOLOGY REPORT STANDARD TITLE: PATHOLOGY PROCEDURE NOTE DATE OF NOTE: JAN 31, 2024@13:43:06 ENTRY DATE: JAN 31, 2024@13:43:06 AUTHOR: KENTON CAIGNER: URGENCY: STATUS: COMPLETED $APHDR - - - [...] Performing Laboratory: Surgical Pathology Report Performed By: [facility] CLIA# [id number] [address] [place] [id number] $FTR - - - - - - [...] - - - - - - - HALI TRINIDAD STANDARD FORM 515 ID:[id number] SEX:F :1955 AGE: 68 LOC:GILABA2 PCP: Shahida Arredondo MD /sandra/ [place] PATHOLOGIST Signed: 01/31/2024 13:43 [place] [facility] Encounter Notes: All associated encounter notes This section contains the clinical notes associated to the Encounter. Date/Time Encounter Note(s) Provider Source Feb 01, 2024 09:25 AM GASTROENTEROLOGY LETTERS: LOCAL TITLE: GI BIOPSY RESULTS LETTER STANDARD TITLE: GASTROENTEROLOGY LETTERS DATE OF NOTE: FEB 01, 2024@09:25 ENTRY DATE: FEB 01, 2024@09:25:17 AUTHOR: GBABI CHANDLER COSIGNER: URGENCY: STATUS: COMPLETED [address] [address] FEB 01, 2024 HALI TRINIDAD [address] [place] [address] [place] [id number] Dear Hali Trinidad, Thank you for completing your Colonoscopy recently at [facility]. I am writing to give you the pathology results for the tissue removed during the procedure. During your colonoscopy we removed three (3) polyps. I am happy to report that the tissue we removed is not cancer. This is good news. The tissue removed included tubular adenomas. Adenomatous (pre-cancerous) polyps are the most common type of polyp. Most of these polyps do NOT develop into cancer, but they do have the potential to become malignant over several years which is why they are most often removed. After reviewing your results I recommend you complete a follow-up colonoscopy in 5 years. If you want to see the full pathology report, you may do this by logging on the [employer] website at [email or web address]. If you have not already done so, I recommend you visit this web site to set up your account. You will then be able to review this result and all future results. Please call [phone] if you have any questions about this letter. Sincerely, Gabbi Chandler M.D. Accounting Consultant GABBI CHANDLER [facility] Jan 30, 2024 11:46 AM PREPROCEDURE NOTE: LOCAL TITLE: PHYSICIAN PRE-PROCEDURE ASSESSMENT ST STANDARD TITLE: PREPROCEDURE NOTE DATE OF NOTE: JAN 30, 2024@11:46 ENTRY DATE: JAN 30, 2024@11:47:04 AUTHOR: GABBI LYON EXP COSIGNER: GABBI CHANDLER URGENCY: STATUS: COMPLETED Airway: No significant abnormality Mallampati Score: 2 Neck Extension: Not Limited Teeth: No significant abnormality Cardiac: No significant abnormality Pulmonary: No significant abnormality Gastrointestinal: Other/comment: collagenous colitis Neurological: No significant abnormality ASA Score: 2 Abdominal and Pelvic Surgical History: Sedation/Anesthesia Plan: Anesthesia consult History of previous adverse reaction to sedation: No Tobacco use: No Alcohol use: No Recreational drug use: No Last oral intake:0500 Time spent:0-5 minutes /sandra/ Gabbi Lyon MD Fellow Physician Signed: 01/30/2024 11:48 /ronald Chandler M.D. Accounting Consultant Cosigned: 01/30/2024 13:30 GABBI LYON Melanie [facility]
--- OUTSIDE RECORDS SUMMARY | 2024-11-30 14:52 | XMS_ITS ---
Author Name [facility] [place] [facility] [place] Address [address] [place] [address] Care Team Providers Care Manufacturing Advisor Name Role Phone MARIA ELENACAMERONID Primary Care [...] PRESCRIPT ION NONE Mar 16, 2006 NONE [id number] [place] PATIENT AETNA [facility] PREFERRED PROVIDER ORGANIZAT ION (PPO) DEPAR TMENT OF DEFEN S Mar 16, 2006 [id number] [phone] [place] PATIENT MEDICARE (WNR) MEDICARE (M) PART B Nov 14, 2020 PART B [id number] SHELBY BRA PATIENT MEDICARE (WNR) MEDICARE (M) PART A Nov 14, 2020 PART A [id number] [place] PATIENT Selected Encounter This section includes the information on record at [place] for the Encounter. Date/Time Encounter Type Encounter Description Reason Provider Source Dec 05, 2023 10:30 AM OFFICE O/P EST MOD 30 MIN RENAL/NEPHROL(EXC EPT DIALYSIS) ICD-10-CM I10 Essential (primary) hypertension KELVIN LIN [facility] Encounter Template Text not used by [place] Assessments - Encounter Diagnoses This section includes the primary and secondary diagnoses documented for the Encounter. Date/Time Primary/Secondary Diagnosis Diagnosis Name Provider Source Dec 05, 2023 02:02 PM PRIMARY Essential (primary) hypertension [facility] Dec 05, 2023 02:02 PM SECONDARY Chronic kidney disease, stage 4 (severe) [facility] Dec 05, 2023 02:02 PM SECONDARY Secondary hyperparathyroidism of renal origin DONYAKELVIN BARGER [facility] Plan of Treatment: Future Appointments (+ 6 months) and Future Tests (+/- 45 days) The Plan of Treatment section includes future care activities for the patient from all [place] [facility]. This section includes future appointments and future orders which are active, pending or scheduled. Future Appointments This section includes appointments that were scheduled to occur 6 months from the date of the Encounter, up to a maximum of 20 appointments. The data comes from all [place] treatment facilities. Appointment Date/Time Appointment Type Appointme nt Facility Name Dec 11, 2023 11:00 AM AMBULATORY - SURGERY [facility] Jan 30, 2024 11:15 AM AMBULATORY - MEDICINE [facility] Mar 25, 2024 10:30 AM AMBULATORY - MEDICINE [facility] Mar 27, 2024 01:00 PM AMBULATORY - NEUROLOGY [facility] Mar 28, 2024 10:49 AM AMBULATORY - MEDICINE [facility] Apr 02, 2024 10:00 AM AMBULATORY - MEDICINE . [facility] Apr 14, 2024 02:30 PM AMBULATORY - MEDICINE [facility] Apr 30, 2024 02:00 PM AMBULATORY - NONE [facility] May 06, 2024 10:30 AM AMBULATORY - NONE [facility] May 30, 2024 10:00 AM AMBULATORY - MEDICINE [facility] May 30, 2024 01:30 PM AMBULATORY - NONE [facility] Active, Pending, and Scheduled Orders This section includes a listing of several types of active, pending, and scheduled orders, including clinic medications orders, diagnostic test orders, procedure orders and consult orders; where the start date of the order is 45 days before the date of the Encounter or 45 days after the date of the Encounter. The data comes from all [place] treatment facilities. Test Date/Time Test Type Test Details Facility Name Jan 02, 2024 12:00 AM Laboratory - Chemi stry Order RENAL PANEL GREEN LI/HEP BLD/PLAS PLASMA SP [facility] Lab Results: +/- 30 days of the encounter This section includes the Chemistry and Hematology Lab Results on record with [place] for the patient. Radiology Reports and Pathology Reports are provided separately, in subsequent sections. Lab Results This section contains the Chemistry/Hematology Results that were resulted 30 days before or 30 daysafter the date of the Encounter. Date/Time Source Result Type Result - Unit Interpretation Reference Range Specimen Type Comment Dec 05, 2023 11:49 AM [facility] PTH, INTACT (STL) SERUM Specimen Type: SERUM No comment entered. Ordering Provider: MARISOL LIN Report Released Date/Time: Dec 05, 2023 08:15 AM Reporting Lab: [place] [id number] [facility] [id number] Performing Lab: [place] [id number] [facility] [address] PTH, INTACT (STL) 42.60 pg/mL 8.7-77.7 Dec 05, 2023 11:49 AM [facility] VITAMIN D, 25-HYDROXY SERUM Specimen Type: SE RUM No comment entered. Ordering Provider: HOWIE LIN Report Released Date/Time: Dec 05, 2023 08:15 AM Reporting Lab: [address] [address] Performing Lab: [facility] [address] [facility] [address] VITAMIN D, 25-HYDROXY 42.6 ng/mL 30-96 Dec 05, 2023 11:49 AM [facility] RENAL PANEL PLASMA Specimen Type: PLASM A Comment: No hemolysis noted. Ordering Provider: HOWIE LIN Report Released Date/Time: Dec 05, 2023 08:15 AM Reporting Lab: [facility] [address] [facility] [address] Performing Lab: [address] [address] CREATININE 2.05 mg/dL H 0.6-1.1 UREA NITROGEN 31.8 mg/dL H 9.0-25.0 GLUCOSE 102 mg/dL H 72-99 SODIUM 141 meq/L 136-145 POTASSIUM 4.3 meq/L 3.5-5 CHLORIDE 106 meq/L 98-107 CARBON DIOXIDE 23 meq/L 22-31 CALCIUM 8.8 mg/dL 8.4-10.4 PHOSPHOROUS 5.3 mg/dL H 2.3-4.7 ALBUMIN 4.4 g/dL 3.4-5 EGFR (CKD-EPI 2020) 25.9 >60 Dec 05, 2023 11:49 AM [facility] CBC BLOOD Specimen Type: BLOOD No comment entered. Ordering Provider: HOWIE LIN Report Released Date/Time: Dec 05, 2023 08:15 AM Reporting Lab: [place] [id number] [facility] [address] Performing Lab: [address] [address] WBC 9.0 10*3/uL 3.6-11.2 RBC 3.78 10*6/uL 3.60-5.00 HGB 11.8 g/dL 11.0-14.9 HCT 37.8 32.6-43.4 MCV 100.0 fL 80.0-100.0 MCH 31.2 pg 27.0-34.0 MCHC 31.2 g/dL L 33.0-36.0 PLT 263 10*3/uL 150-400 MPV 11.6 fL H 7.5-11.2 RDW 13.1 11.8-15.1 LYMPHOCYTES, AUTO % 19 MONOCYTES, AUTO % 6 NEUTROPHILS, AUTO % 73 EOSINOPHILS, AUTO % 1 BASOPHILS, AUTO % 0 LYMPHOCYTES, ABSOLUTE 1.70 10*3/uL 0.77- 4.50 MONOCYTES, ABSOLUTE 0.55 10*3/uL 0.19-0. 80 NEUTROPHILS, ABSOLUTE 6.54 10*3/uL 2.10- 8.00 EOSINOPHILS, ABSOLUTE 0.12 10*3/uL 0.00- 0.60 BASOPHILS, ABSOLUTE 0.02 10*3/uL 0.00-0. 20 Vital Signs: All taken on the encounter date This section contains inpatient and outpatient Vital Signs collected on the date of the Encounter. Date/Time Temperature Pulse Blood Pressure Respiratory Rate SP02 Pain Height Weight Body Mass Index Source Dec 05, 2023 10:27 AM 97.6 67 137/77 16 99 0 64 136.1 23 [facility] Social History: Smoking Status (Most current) and Tobacco Use (All prior to encounter date) This section includes the most current, and the historical, smoking and tobacco- related health factors from the [place] facility where the Encounter took place. Current Smoking Status This section includes the most current smoking, or tobacco-related health factor, from the [place] facility where the Encounter took place. Date/Time Current Smoking Status Comment Abbie castillo Sep 24, 2023 01:20 PM VA-TOBACCO FORMER USER [facility] Tobacco Use History This section includes a history of the smoking, or tobacco-related health factors, that were collected on or before the date of the Encounter. The data comes from the [place] facility where the Encounter took place. Date/Time Smoking Status/Tobacco Use Comment Asuncion castano Sep 24, 2023 01:20 PM VA-TOBACCO QUIT 15 YRS OR MORE [facility] Apr 06, 2021 07:54 PM ORYX ADMIT TOBACCO SCREEN NO [facility] Jul 26, 2020 09:33 AM VA-TOBACCO FORMER USER [facility] Jul 26, 2020 09:33 AM VA-TOBACCO QUIT 15 YRS OR MORE [facility] Aug 13, 2019 05:31 PM ORYX ADMIT TOBACCO SCREEN NO [facility] Nov 26, 2008 11:49 AM QUIT TOBACCO >7 YEARS AGO [facility] Advance Directives: All historical and current Section Date Range: From patient's date of to the date document was created. This section includes ALL of a patient's completed or amended [place] Advance and Rescinded Directives. The entries below indicate that a directive exists for the patient, but an actual copy is not included with this document. The data comes from all [place] facilities. Date Advance Directives Provider Source Nov 18, 2021 STATE-AUTHORIZED POR TABLE ORDERS ELIDIA NOONAN [facility] Encounter Notes: All associated encounter notes This section contains the clinical notes associated to the Encounter. Date/Time Encounter Note(s) Provider Source Dec 05, 2023 10:27 AM NEPHROLOGY OUTPATIENT NOTE: LOCAL TITLE: NEPHROLOGY OUTPATIENT FOLLOW UP [facility] STANDARD TITLE: NEPHROLOGY OUTPATIENT NOTE DATE OF NOTE: DEC 05, 2023@10:27 ENTRY DATE: DEC 05, 2023@10:27:53 AUTHOR: EB LIN EXP COSIGNER: URGENCY: STATUS: COMPLETED Subjective: 67yo with ckd stage 4 seen in renal clinic. Last clinic appt was July [address] Maria. Here for follow up visit. He denied nausea, vomiting, change in appetite or taste of food. Hydrating well and avoiding nsaids. Feeling generally well, son just gave to her first grandchild and will be going to [place] to visit new baby. Walks 1 mile daily and she is involved in all sorts of fun activities at her assisted living facility. 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 (SNOMED CT 598022227358150) 6) Depressive Disorder NOS * (ICD-9-CM 311./300.4) 7) Gynecologic Exam 8) OA - Osteoarthritis (SNOMED CT 465211978) 9) Skin tag (SNOMED CT 366864666) 10) Nonvenomous insect bite (SNOMED CT 954130211) 11) Foot callus (SNOMED CT 554391993) 12) Verruca plantaris (SNOMED CT 09691439) 13) Edema (SNOMED CT 353256446) 14) Cramp (SNOMED CT 14822575) 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 - needs renewal 4) BUDESONIDE 3MG EC CAP TAKE ONE CAPSULE BY MOUTH EVERY ACTIVE (S) MORNING 5) BUPROPION HCL 150MG 12HR SA TAB TAKE ONE TABLET BY ACTIVE (S) MOUTH TWICE A DAY SWALLOW WHOLE - DO NOT CRUSH OR CHEW. 6) CALCITRIOL 0.25MCG CAP TAKE ONE CAPSULE BY MOUTH ACTIVE THREE TIMES PER WEEK 7) CALCIUM CARB 500MG (CA 200MG) CHEW TAB CHEW AND ACTIVE SWALLOW ONE TABLET BY MOUTH THREE TIMES A DAY WITH MEALS AND CHEW AND SWALLOW ONE TABLET AT BEDTIME 8) CETIRIZINE HCL 10MG TAB TAKE ONE-HALF TABLET BY MOUTH ACTIVE ONCE A DAY FOR ALLERGY SYMPTOMS. NEW DOSE - RENAL ADJUSTED 9) FERROUS GLUCONATE 324MG TAB TAKE ONE TABLET BY MOUTH ACTIVE ONCE A DAY FOR IRON SUPPLEMENTATION. 10) LOPERAMIDE HCL 2MG CAP TAKE ONE CAPSULE BY MOUTH ACTIVE EVERY DAY NEEDED FOR DIARRHEA. 11) MELATONIN 3MG CAP/TAB TAKE TWO CAP/TAB BY MOUTH AT ACTIVE BEDTIME FOR SLEEP 12) MOXIFLOXACIN (EQV-VIGAMOX) 0.5% OPH SOLN INSTILL 1 HOLD DROP IN RIGHT EYE FOUR TIMES A DAY FOR BACTERIAL EYE INFECTION 13) PREDNISOLONE ACETATE 1% OPH SUSP INSTILL 1 DROP IN ACTIVE (S) RIGHT EYE FOUR TIMES A DAY FOR EYE INFLAMMATION 14) TRAMADOL HCL 50MG TAB TAKE 1 TABLET BY MOUTH FOUR ACTIVE TIMES A DAY NEEDED FOR PAIN Active Non-VA Medications Status 1) Non-VA FISH OIL 1000MG (500MG DHA/EPA) CAP 1000MG BY ACTIVE MOUTH TWICE A DAY 2) Non-VA MAGNESIUM OXIDE TAB 250MG BY MOUTH TWICE A DAY ACTIVE medication reviewed in clinic Physical exam: Temperature: 97.7 F [36.5 C] (11/07/2023 13:15) Blood Pressure: 139/84 (11/07/2023 13:15) Pulse: 63 (11/07/2023 13:15) Respirations: 18 (11/07/2023 13:15) O2 Saturation: 100% (11/07/2023 13:15) Weight: 136 lb [61.69 kg] (11/07/2023 10:15) Height: 64 in [162.6 cm] (11/07/2023 10:15) General:68 FEMALENOT OR NAD, WNWD HEENT: sclera anicteric NECK: Supple, no thyromegaly LUNGS: CTAB, regular unlabored CV: RRR, S1 S2, no S3 S4 or murmurs ABD: round/non distended, +BS EXT: no edema MOOD: appropriate, pleasant INSPECTOR RAG SORTING: non focal Lab Data: CBC: WBC 9.0 10*3/uL 12/05/2023 11:49 RBC 3.78 10*6/uL 12/05/2023 11:49 HGB 11.8 g/dL 12/05/2023 11:49 HCT 37.8 % 12/05/2023 11:49 MCV 100.0 fL 12/05/2023 11:49 MCH 31.2 pg 12/05/2023 11:49 MCHC 31.2 L g/dL 12/05/2023 11:49 RDW 13.1 % 12/05/2023 11:49 PLT 263 10*3/uL 12/05/2023 11:49 MPV 11.6 H fL 12/05/2023 11:49 NEUTROPHILS, AUTO % 73 % 12/05/2023 11:49 LYMPHOCYTES, AUTO % 19 % 12/05/2023 11:49 MONOCYTES, AUTO % 6 % 12/05/2023 11:49 EOSINOPHILS, AUTO % 1 % 12/05/2023 11:49 BASOPHILS, AUTO % 0 % 12/05/2023 11:49 IMMATURE GRANS, AUTO % 0.3 % 12/21/2021 08:38 NEUTROPHILS, ABSOLUTE 6.54 10*3/uL 12/05/2023 11:49 LYMPHOCYTES, ABSOLUTE 1.70 10*3/uL 12/05/2023 11:49 MONOCYTES, ABSOLUTE 0.55 10*3/uL 12/05/2023 11:49 EOSINOPHILS, ABSOLUTE 0.12 10*3/uL 12/05/2023 11:49 BASOPHILS, ABSOLUTE 0.02 10*3/uL 12/05/2023 11:49 IMMATURE GRANS, AUTO ABS 0.02 10*3/uL 12/21/2021 08:38 Renal Function Panel: SODIUM 141 mEq/L 12/05/2023 11:49 POTASSIUM 4.3 mEq/L 12/05/2023 11:49 CHLORIDE 106 mEq/L 12/05/2023 11:49 UREA NITROGEN 31.8 H mg/dL 12/05/2023 11:49 CREATININE 2.05 H mg/dL 12/05/2023 11:49 CALCIUM 8.8 mg/dL 12/05/2023 11:49 CARBON DIOXIDE 23 mEq/L 12/05/2023 11:49 GLUCOSE 102 H mg/dL 12/05/2023 11:49 EGFR (CKD-EPI 2020) 25.9 12/05/2023 11:49 ALBUMIN 4.4 g/dL 12/05/2023 11:49 PHOSPHOROUS 5.3 H mg/dL 12/05/2023 11:49 Intact PTH: VITAMIN D, 25-HYDROXY 47.0 ng/mL 05/25/2023 09:07 Anemia Labs: IRON 75 ug/dL 06/12/2022 07:57 IRON SATURATION 23 %SAT 06/12/2022 07:57 TIBC 328 ug/dL 06/12/2022 07:57 0 FERRITIN 44.81 ng/mL 06/12/2022 07:57 Urine Studies: URINE COLOR Light-Yellow 10/29/2023 11:36 APPEARANCE Clear 10/29/2023 11:36 U.PH 6.5 10/29/2023 11:36 U.BILIRUBIN Negative mg/dL 10/29/2023 11:36 U.NITRITE Negative mg/dL 10/29/2023 11:36 CREATuF: 18.5 (08/15/23 15:46) Assessment/Recommendations #CKD Stage 4- likely from nephrocalcinosis, analgesic nephropathy and past JT creat stable 2.05 today was 2.26 in October No uremic symptoms reported in clinic today no indication for dialysis. will continue to monitor kidney function continue keeping bp and bs at goal continue good hydration. continue avoiding nsaids. continue daily exercise and increase as tolerated #HTN/Edema - bp at goal at goal, no edema will continue current regimen atenolol 50mg daily. continue bp log, instructed to monitor more frequenctly and to notify provider if trending higher continue sodium restriction #Secondary hyperparathyroidism of renal disease- vitamin D 42.6, replete no indication for supplementation pth 42.6 at goal, will continue calcitriol 0.25mcg 3x/week phos 5.3, instructed to reduce intake of foods high in phos, will recheck level in a month and start phos binder if indicated ca 8.8, k 4.3, albumin 4.3. mag 2.0 at goal, will continue carbonate to I tid with meals and at bedtime and magnesium oxide 250mg po bid. #Anemia - hgb 11.8, at goal for the stage of kidney disease, 23% from most recent lab, ferritin 44 will continue po iron. no indication for ARNAV #Acid-Base - bicarb 23; no indication for supplementation #Transplant eval placed on hold at [facility], [facility] back on transplant when gfr around 20 #medication needing renewed atorvastatin will pcp to note to renew medication rtc in 3-4 months /es/ HOWIE LIN APRN CHIEF EMBALMER- NURSE PRACTITIONER Signed: 12/05/2023 14:03 Receipt Acknowledged By: 12/05/2023 15:18 /es/ Raymond Maria M.D. Staff Physician- Nephrology 12/05/2023 15:41 /es/ [facility]
--- OUTSIDE RECORDS SUMMARY | 2024-11-30 14:52 | XMS_ITS | Encounter Summary ---
Author Name [facility] [place] Organization [facility] [place] Address [address] [place] [address] Care Team Providers Care Weight And Test Bar Clerk Name Role Phone MARIA ELENA MAN [...] PRESCRIPT ION NONE Mar 16, 2006 NONE [id number] MALAVE PATIENT AETNA [facility] PREFERRED PROVIDER ORGANIZAT ION (PPO) DEPAR TMENT OF DEFEN S Mar 16, 2006 [id number] SHELBY BRA PATIENT MEDICARE (WNR) MEDICARE (M) PART A Nov 14, 2020 PART A [id number] SHELBY BRA PATIENT MEDICARE (WNR) MEDICARE (M) PART B Nov 14, 2020 PART B [id number] [phone] MALAVE PATIENT Selected Encounter This section includes the information on record at [place] for the Encounter. Date/Time Encounter Type Encounter Description Reason Provider Source Mar 25, 2024 10:30 AM OFFICE O/P EST LOW 20 MIN PRIMARY CARE/MEDICINE ICD-10-CM N39.0 Urinary tract infection, site not specified MAN ARREDONDO IHE Encounter Template Text not used by [place] Assessments - Encounter Diagnoses This section includes the primary and secondary diagnoses documented for the Encounter. Date/Time Primary/Secondary Diagnosis Diagnosis Name Provider Source Mar 26, 2024 08:50 AM PRIMARY Urinary tract infection, site not specified MAN ARREDONDO [facility] Mar 26, 2024 08:50 AM SECONDARY Chronic kidney disease, stage 4 (severe) MAN ARREDONDO [facility] Mar 26, 2024 08:50 AM SECONDARY Encounter for immunization LINDA PEREZ [facility] Plan of Treatment: Future Appointments (+ 6 months) and Future Tests (+/- 45 days) The Plan of Treatment section includes future care activities for the patient from all [place] treatmentfacilities. This section includes future appointments and future orders which are active, pending or scheduled. Future Appointments This section includes appointments that were scheduled to occur 6 months from the date of the Encounter, up to a maximum of 20 appointments. The data comes from all [place] treatment facilities. Appointment Date/Time Appointment Type Appointme nt Facility Name Mar 27, 2024 01:00 PM AMBULATORY - NEUROLOGY [facility] Mar 28, 2024 10:49 AM AMBULATORY - MEDICINE [facility] Apr 02, 2024 10:00 AM AMBULATORY - MEDICINE [facility] Apr 14, 2024 02:30 PM AMBULATORY - MEDICINE [facility] Apr 30, 2024 02:00 PM [facility]ULATORY - NONE [facility] May 06, 2024 10:30 AM AMBULATORY - NONE [facility] May 30, 2024 10:00 AM AMBULATORY - MEDICINE [facility] May 30, 2024 01:30 PM AMBULATORY - NONE [facility] Jun 13, 2024 09:00 AM AMBULATORY - SURGERY [facility] Jun 20, 2024 11:00 AM AMBULATORY - SURGERY . Fabián NEHEMIAS [facility] Jul 09, 2024 01:00 PM AMBULATORY - SURGERY . Fabián SUAREZ [facility] Jul 18, 2024 11:40 AM AMBULATORY - MEDICINE [facility] Jul 29, 2024 12:00 PM AMBULATORY - NONE [facility] Aug 11, 2024 12:20 PM AMBULATORY - MEDICINE [facility] September 09, 2024 12:00 PM AMBULATORY - NONE [facility] Active, Pending, and Scheduled Orders This section includes a listing of several types of active, pending, and scheduled orders, including clinic medications orders, diagnostic test orders, procedure orders and consult orders; where the start date of the order is 45 days before the date of the Encounter or 45 days after the date of theEncounter. The data comes from all [facility] facilities. Test Date/Time Test Type Test Details Facility Name Mar 25, 2024 12:00 AM Laboratory - Chemi stry Order URINALYSIS (STL-PB) URINE [facility] Mar 25, 2024 12:00 AM Laboratory - Microbiology Order C&S URINE URINE,CLEAN CATCH [facility] Mar 28, 2024 11:15 AM Laboratory - Chemi stry Order COPPER BLOOD IN AM [facility] Lab Results: +/- 30 days of [...] Type Comment Mar 30, 2024 07:44 AM [facility] BASIC METABOLIC PANEL PLASMA Specimen Type: PLASMA Comment: No hemolysis noted. Ordering Provider: REINA PANDEY Report Released Date/Time: Mar 28, 2024 03:46 PM Reporting Lab: [place] [address] [facility] [address] Performing Lab: [address] [place] [address] CREATININE 2.19 mg/dL H 0.6-1.1 UREA NITROGEN 30.2 mg/dL H 9.0-25.0 GLUCOSE 123 mg/dL H 72-99 SODIUM 144 meq/L 136-145 POTASSIUM 3.6 meq/L 3.5-5 CHLORIDE 106 meq/L 98-107 CARBON DIOXIDE 24 meq/L 22-31 CALCIUM 10.8 mg/dL H 8.4-10.4 EGFR (CKD-EPI 2020) 24.0 >60 Mar 30, 2024 07:44 AM [facility] CBC BLOOD Specimen Type: BLOOD No comment entered. Ordering Provider: REINA PANDEY Report Released Date/Time: Mar 28, 2024 03:46 PM Reporting Lab: [address] [address] Performing Lab: [address] [address] WBC 6.7 10*3/uL 3.6-11.2 RBC 3.35 10*6/uL [...] 0.00-0. 20 Mar 29, 2024 07:59 AM [facility] CORTISOL(STL Eff 01/21) PLASMA Specimen Type: PLASMA Comment: No hemolysis noted. Ordering Provider: REINA PANDEY Report Released Date/Time: Mar 28, 2024 05:00 PM Reporting Lab: [address] [address] Performing Lab: [address] [address] CORTISOL(STL Eff 01/21) 14.700 ug/dL Mar 29, 2024 07:59 AM [facility] BASIC METABOLIC PANEL PLASMA Specimen Type: PL ASMA Comment: No hemolysis noted. Ordering Provider: REINA PANDEY Report Released Date/Time: Mar 28, 2024 03:46 PM Reporting Lab: [address] [address] Performing Lab: [address] [address] CREATININE 2.58 mg/dL H 0.6-1.1 UREA NITROGEN 39.0 mg/dL H 9.0-25.0 GLUCOSE 137 mg/dL H 72-99 SODIUM 145 meq/L 136-145 POTASSIUM 3.8 meq/L 3.5-5 CHLORIDE 106 meq/L 98-107 CARBON DIOXIDE 24 meq/L 22-31 CALCIUM 10.9 mg/dL H 8.4-10.4 EGFR (CKD-EPI 2020) 19.7 >60 Mar 29, 2024 07:59 AM [facility] CBC BLOOD Specimen Type: BLOOD No comment entered. Ordering Provider: REINA PANDEY Report Released Date/Time: Mar 28, 2024 03:46 PM Reporting Lab: [address] [address] Performing Lab: [address] [address] WBC 5.9 10*3/uL 3.6-11.2 RBC 3.27 10*6/uL [...] 20 Mar 28, 2024 07:20 PM [facility] URINALYSIS W/ CX REFLEX (STL-PB) URINE Specim en Type: URINE No comment entered. Ordering Provider: REINA PANDEY Report Released Date/Time: Mar 28, 2024 02:27 PM Reporting Lab: [place] [address] [facility] [place] [address] Performing Lab: [address] [address] URINE COLOR Colorless Yellow U.BILIRUBIN Negative mg/dL Negative U.PH 7.5 5.0-8.0 APPEARANCE Clear Clear U.NITRITE Negative mg/dL Negative URN.GLUCOSE Normal mg/dL Negative URN.PROTEIN Negative mg/dL URN.UROBILINOGEN Normal mg/dL Normal URN.BLOOD Negative mg/dL Negative-Trace URN.KETONES Negative mg/dL Negative-Trac e URN.LEUK.EST. Negative mg/dL Negative-Tr kiarra URN.SPECIFIC GRAVITY 1.008 Mar 28, 2024 06:11 PM [facility] METHYLMALONIC ACID SERUM Specimen Type: SERUM [...] neural tube defects and intrauterine growth restriction. [employer] utilized Multi-Modal Decomposition (MMD) analysis to establish first and second trimester- specific MMA reference intervals in , as given below: MMA, First trimester (<13 wks gestation): 58-167 nmol/L MMA, Second trimester (13-23 wks gestation): 63-241 nmol/L This test was developed and its analytical performance characteristics have been determined by [employer]. It has not been cleared or approved by the FDA. This assay has been validated pursuant to the CLIA regulations and is used for clinical purposes. Test Performed by [facility], [facility], [address] [place] [address] Iker Simon M.D., Ph.D., Director of Laboratories , CLIA [id number] Ordering Provider: REINA PANDEY Report Released Date/Time: Mar 28, 2024 03:46 PM Reporting Lab: [facility] [address] [facility] [address] Performing Lab: [address] METHYLMALONIC ACID 512 nmol/L H 69-390 Mar 28, 2024 06:11 PM [facility] FOLATE (L-MA) SERUM Specimen Type: SERUM No comment entered. Ordering Provider: REINA PANDEY Report Released Date/Time: Mar 28, 2024 03:46 PM Reporting Lab: [facility] [address] [facility] [address] Performing Lab: [facility] [address] [facility] [address] FOLATE (STL-DE) 13.9 ng/mL 7-20 Mar 28, 2024 06:11 PM [facility] B12 SERUM Specimen Type: SERUM No comment entered. Ordering Provider: REINA PANDEY Report Released Date/Time: Mar 28, 2024 03:46 PM Reporting Lab: [facility] [address] [place] [address] Performing Lab: [address] [address] B12 287 pg/mL 213-816 Mar 28, 2024 06:11 PM [facility] COMPREHENSIVE METABOLIC PANEL PLASMA Specimen Type: PLASMA Comment: No hemolysis noted. Ordering Provider: REINA PANDEY Report Released Date/Time: Mar 28, 2024 03:46 PM Reporting Lab: [address] [address] Performing Lab: [address] [address] CREATININE 2.68 mg/dL H 0.6-1.1 UREA NITROGEN [...] 18.8 >60 Mar 28, 2024 06:11 PM [facility] HGA1C BLOOD Specimen Type: BLOOD No comment entered. Ordering Provider: REINA PANDEY Report Released Date/Time: Mar 28, 2024 03:46 PM Reporting Lab: [address] [address] Performing Lab: [address] [address] HGA1C 5.5 4.0-6.0 Mar 28, 2024 06:11 PM [facility] TSH W/ REFLEX FT4 (STL) PLASMA Specimen Type: PLASMA No comment entered. Ordering Provider: REINA PANDEY Report Released Date/Time: Mar 28, 2024 03:46 PM Reporting Lab: [facility] [address] [place] [address] Performing Lab: [address] [address] TSH 2.508 u[IU]/mL 0.47-5 Mar 28, 2024 06:11 PM [facility] CBC BLOOD Specimen Type: BLOOD No comment entered. Ordering Provider: REINA PANDEY Report Released Date/Time: Mar 28, 2024 03:46 PM Reporting Lab: [address] [address] Performing Lab: [address] [address] WBC 9.0 10*3/uL 3.6-11.2 RBC 3.31 10*6/uL [...] 0.00-0. 20 Mar 28, 2024 04:18 PM [facility] MRSA SURVL NARES DNA NARES Specimen Type: [...] Mar 28, 2024 04:15 PM Reporting Lab: [address] [address] Performing Lab: [address] [address] MRSA SURVL NARES DNA Negative Negative Mar 28, 2024 11:10 AM [facility] B12 SERUM Specimen Type: SERUM No comment entered. Ordering Provider: CLEMENT PAN Report Released Date/Time: Mar 28, 2024 11:15 AM Reporting Lab: [address] [address] Performing Lab: [address] [address] B12 247 pg/mL 213-816 Mar 28, 2024 11:10 AM [facility] BASIC METABOLIC PANEL PLASMA Specimen Type: PL ASMA Comment: No hemolysis noted. Ordering Provider: CLEMENT PAN Report Released Date/Time: Mar 28, 2024 11:15 AM Reporting Lab: [address] [address] Performing Lab: [address] [address] CREATININE 2.90 mg/dL H 0.6-1.1 UREA NITROGEN 40.6 mg/dL H 9.0-25.0 GLUCOSE 99 mg/dL 72-99 SODIUM 140 meq/L 136-145 POTASSIUM 4.2 meq/L 3.5-5 CHLORIDE 104 meq/L 98-107 CARBON DIOXIDE 22 meq/L 22-31 CALCIUM 11.3 mg/dL H 8.4-10.4 EGFR (CKD-EPI 2020) 17.1 >60 Mar 28, 2024 11:10 AM [facility] CBC BLOOD Specimen Type: BLOOD No comment entered. Ordering Provider: CLEMENT PAN Report Released Date/Time: Mar 28, 2024 11:15 AM Reporting Lab: [facility] [address] [facility] [place] [address] Performing Lab: [facility] [address] [place] [place] [address] WBC 9.9 10*3/uL 3.6-11.2 RBC 3.34 10*6/uL [...] 10*3/uL 2.10-8.00 Mar 25, 2024 11:45 AM [facility] MAGNESIUM PLASMA Specimen Type: PLASM A Comment: No hemolysis noted. Ordering Provider: MAN ARREDONDO Report Released Date/Time: Mar 25, 2024 11:30 AM Reporting Lab: [facility] [address] [facility] [place] [address] Performing Lab: [facility] [address] [place] [place] [address] MAGNESIUM 1.8 mg/dL 1.6-2.6 Mar 25, 2024 11:45 AM [facility] COMPREHENSIVE METABOLIC PANEL PLASMA Specimen Type: PLASMA Comment: No hemolysis noted. Ordering Provider: MAN ARREDONDO Report Released Date/Time: Mar 25, 2024 11:30 AM Reporting Lab: [facility] [address] [place] [address] Performing Lab: [address] [address] CREATININE 2.62 mg/dL H 0.6-1.1 UREA NITROGEN [...] 19.3 >60 Mar 25, 2024 11:45 AM [facility] CBC BLOOD Specimen Type: BLOOD No comment entered. Ordering Provider: MAN ARREDONDO Report Released Date/Time: Mar 25, 2024 11:30 AM Reporting Lab: [facility] [address] [place] [address] Performing Lab: [address] [address] WBC 9.9 10*3/uL 3.6-11.2 RBC 3.36 10*6/uL [...] Height Weight Body Mass Index Source Mar 25, 2024 10:39 AM 98.2 86 120/79 18 96 0 128.2 22 [facility] Immunizations: All administered on the encounter date This section contains immunizations associated to the Encounter. Immunization Series Date Issued Administered By Site Reaction Lot Number CVX Code Drug Crime Scene Photographer Comment(s) Source COVID-19 (PFIZER), MRNA, LNP-S, PF, PATTIE-SUCROSE, 30 MCG/0.3 ML (AGES 12+ YEARS) Mar 25, 2024 READMALA FAY S RIGHT DELTO ID [id number] [employer]seeing Information, INC ADMINISTERE D AT [facility] INFLUENZA, HIGH-DOSE, TRIVALENT, PF Mar 25, 2024 MALA PEREZ S LEFT DELTO ID [id number] SANOFI PASTEUR ADMINISTERE D AT [facility] Social History: Smoking Status (Most current) [...] Date/Time Current Smoking Status Comment Abbie ity Jul 21, 2022 10:30 AM VA-TOBACCO FORMER USER [facility] Tobacco Use History This section includes a history of the smoking, or tobacco-related health factors, that were collected on or before the date of the Encounter. The data comes from the [place] facility where the Encounter took place. Date/Time Smoking Status/Tobacco Use Comment F acility Jul 21, 2022 10:30 AM VA-TOBACCO QUIT 15 YRS OR MORE [facility] Jul 01, 2021 10:30 AM VA-TOBACCO FORMER USER [facility] Jul 01, 2021 10:30 AM VA-TOBACCO QUIT 15 YRS OR MORE [facility] Feb 18, 2019 03:31 PM VA-TOBACCO FORMER USER [facility] Feb 18, 2019 03:31 PM VA-TOBACCO QUIT 15 YRS OR MORE [facility] August 27, 2017 04:45 PM VA-TOBACCO [facility]ER [facility] August 27, 2017 04:45 PM VA-TOBACCO QUIT 15 YRS OR MORE [facility] August 27, 2017 02:40 PM QUIT TOBACCO >7 YEARS AGO [facility] Feb 26, 2017 02:46 PM QUIT TOBACCO >7 YEARS AGO [facility] Jun 13, 2016 08:55 AM LIFETIME NON-USER OF TOBACCO [facility] Feb 16, 2015 10:29 AM QUIT TOBACCO >7 YEARS AGO [facility] Mar 19, 2014 10:05 AM QUIT TOBACCO >7 YEARS AGO [facility] Sep 23, 2012 09:28 AM QUIT TOBACCO >7 YEARS AGO [facility] Advance Directives: All historical and current Section [...] 2021 STATE-AUTHORIZED POR TABLE ORDERS ELIDIA NOONAN [facility] Radiology Reports: +/- [...] 01:58 PM US RENAL COMPLETE: HALI TRINIDAD [id number] -1955 F Exm Date: APR 14, 2024@13:58 Req Phys: MAN ARREDONDO Pat Loc: [facility]-ST CLR PACT 2 PCP (Req'g Lo Img Loc: [facility]-ULTRASOUND [facility] Service: Unknown [facility], [address] [place] [address] (Case [id number] COMPLETE) US RENAL COMPLETE (US Detailed) CPT:63828 Reason for Study: worsening kidney funcion Clinical History: Report Status: Verified Date Reported: APR 14, 2024 Date Verified: APR 14, 2024 Boilerhouse Mechanic E-Sig:/ES/MARYANN WAKEFIELD Report: Case [id number]. US RENAL COMPLETE. TECHNIQUE: Realtime ultrasound examination [...] renal disease. Report dictated by Gera Yee (cardiac cath lab radiology technologist) Maryann Ball, have reviewed the images and report and concur with these findings. Primary Interpreting Staff: MARYANN WAKEFIELD MD (Boilerhouse Mechanic) Primary Interpreting Resident: GERA YEE MD /[facility] Mar 28, 2024 02:15 PM MRI SPINE THORACIC W/O CONT: TRINIDAD,HALI BIRDIE [id number] -1955 F Exm Date: MAR 28, 2024@14:15 Req Phys: MAXIMCLEMENTCHELO Marks Loc: 6-N SURG-[facility]/03-28-2024@15:52 Img Loc: [facility] Service: [facility], [facility] [address] [place] [address] (Case [id number] COMPLETE) MRI SPINE THORACIC W/O CONT (MRI Detailed) CPT:28562 Reason for Study: spastic gait, rule out [...] Responsible Attending: clement pan Attending Contact Number: [phone] Resident Contact Number: Does your patient have [...] 28, 2024 Date Verified: MAR 28, 2024 Boilerhouse Mechanic E-Sig:/ES/Alexis Gallo MD. FACR. Report: History: spastic [...] Interpreting Staff: Alexis Gallo MD. FACR, Neuroradiologist (Boilerhouse Mechanic) /ALEXIS CORBETT [facility] Mar 28, 2024 02:12 PM MRI SPINE CERVICAL W/O CONT: HALI TRINIDAD [id number] -1955 F Exm Date: MAR 28, 2024@14:12 Req Phys: CLEMENT PAN Pat Loc: 6-N SURG-[facility]/03-28-2024@15:46 Img Loc: [facility] Service: Unknown [facility], [address] [place] [address] (Case [id number] COMPLETE) MRI SPINE CERVICAL W/O CONT (MRI Detailed) CPT:01361 Reason for Study: spastic gait, rule out [...] 28, 2024 Date Verified: MAR 28, 2024 Boilerhouse Mechanic E-Sig:/ES/Alexis Gallo MD. FACR. Report: History: spastic [...] Interpreting Staff: Alexis Gallo MD. FACR, Neuroradiologist (Boilerhouse Mechanic) /ALEXIS CORBETT [facility] Mar 28, 2024 02:11 PM MRI BRAIN W/O CONT : HALI TRINIDAD [id number] -1955 F Exm Date: MAR 28, 2024@14:11 Req Phys: CLEMENT PAN Loc: [facility]-EMERGENCY DEPT 2ND SHIFT (R Img Loc: [facility] Service: [facility], [facility] [address] [place] [address] (Case [id number] COMPLETE) MRI BRAIN W/O CONT (MRI Detailed) CPT:85306 Reason for Study: cognitive decline ? vascular dementia Clinical History: Responsible Attending: clement pan Attending Contact Number: [phone] Resident Contact Number: Does your patient have [...] 28, 2024 Date Verified: MAR 28, 2024 Boilerhouse Mechanic E-Sig:/ES/Alexis Gallo MD. FACR. Report: History: cognitive [...] Interpreting Staff: Alexis Gallo MD. FACR, Neuroradiologist (Boilerhouse Mechanic) /ALEXIS CORBETT [facility] Mar 22, 2024 05:56 PM CHEST PORTABLE: HALI TRINIDAD [id number] -1955 F Exm Date: MAR 22, 2024@17:56 Req Phys: MAN ARREDONDO Loc: [facility] PACT 2 PCP (Req'g Lo Img Loc: OUTSIDE -GENERAL RAD Service: Unknown Screen: Patient is unable to answer or is unsure Screen Comment: OUTSIDE STUDY (Case [id number] COMPLETE) CHEST PORTABLE (RAD Detailed) CPT:91124 Reason for Study: Exam imported from outside [...] outside study. VERIFIED BY: / *ELECTRONICALLY FILED* [facility] Feb 25, 2024 01:25 PM NM BONE IMAGING, W HOLE BODY: HALI TRINIDAD BIRDIE [id number] -1955 F Exm Date: FEB 25, 2024@13:25 Req Phys: MAN ARREDONDO Loc: [facility] PACT 2 PCP (Req'g Lo Img Loc: OUTSIDE [facility] Service: Unknown Screen: Patient is unable to answer or is unsure Screen Comment: OUTSIDE STUDY (Case [id number] COMPLETE) NM BONE IMAGING, WHOLE BODY (NM Detailed) CPT:00920 Reason for Study: Exam imported from outside [...] outside study. VERIFIED BY: / *ELECTRONICALLY FILED* [facility] Encounter Notes: All associated encounter notes This section contains the clinical notes associated to the Encounter. Date/Time Encounter Note(s) Provider Source Mar 27, 2024 11:23 AM ADDENDUM: LOCAL TITLE: Addendum STANDARD TITLE: ADDENDUM DATE OF NOTE: MAR 27, 2024@11:23:18 ENTRY DATE: MAR 27, 2024@11:23:19 AUTHOR: MAN ARREDONDO EXP COSIGNER: URGENCY: STATUS: COMPLETED discharge summary from [facility] showed ctscan of abd/pelvis done on 02/23/2024 showed no acute abdominal pelvic procress detected no pelvic fracture idedntifited possible bilaterla renal lession , my represent hemorrhagic /peoteinacous cyst , other renal mass , or artifact . Given renal functio , consider nonemergic but timely renal MRI with and without contrast Sugestion of mild diffus ossesous sclerosis as can be seen with myelo fibrosis mactrocystois , leukemia lympha , sickle cell anemia , metabolic processes suche as renal osteydystrophy and other entities . Ctscanof brain done on 02/22/2014 no acute intracranial process 1Please inform patient that I will order MRI of kidneys with and without contrast to see about her kidney masses 2Please obtain radiographic disc of patient hospitalziation in Feb and Mar /sandra/ MAN ARREDONDO Signed: 03/27/2024 11:32 Receipt Acknowledged By: 03/27/2024 11:37 /sandra/ NATALIE LARA RN REGISTERED NURSE --- Original Document --- 03/25/24 PRIMARY CARE PROVIDER ESTABLISHED VISIT STL: ESTABLISHED PATIENT [id number]: REASON FOR VISIT/CHIEF COMPLAINT: f/u HPI: Patient with hx of CKD stage 4 HTN , and hyperparathyroidism , was adm to [facility] on 03/01/2024 ( patient states she require a transfusion , noted that her magnesuim levels were out of wack ) and Mar 01, 2024 for uTi and was d/c on Keflex. NOtes that she has increase propensity to wall . [facility] [place] [facility] [place] [facility] because her current residency rent increases by $300 WHAT IS YOUR GOAL FOR TODAY? PAST MEDICAL HISTORY: 1) Hearing loss * (ICD-9-CM 389.9) 2) HTN - Hypertension (SNOMED CT 12290777) 3) Hypercholesterolemia, Familial * (ICD-9-CM 272.0) 4) Deficiency of PTH (SNOMED CT 80225340) 5) 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 (SNOMED CT 548685365666401) 6) Depressive Disorder NOS * (ICD-9-CM 311./300.4) 7) Gynecologic Exam 8) OA - Osteoarthritis (SNOMED CT 366545741) 9) Skin tag (SNOMED CT 970410205) 10) Nonvenomous insect bite (SNOMED CT 267288203) 11) Foot callus (SNOMED CT 784274077) 12) Verruca plantaris (SNOMED CT 98115925) 13) Edema (SNOMED CT 234291371) 14) Cramp (SNOMED CT 39147301) 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 MEDICATION RECONCILIATION: I have reviewed the patient's medication list with the patient and/or his/her care-wildfire prevention specialist. Handwritten corrections, additions and/or deletions were made to the list. Corrected Outpatient Medication List was provided to the patient/caregiver. Active Outpatient Medications (including Supplies): Active Outpatient [...] TWICE A DAY ACTIVE 13 Total Medications PHYSICAL EXAMINATION: Female General appearance: VITALS (most recent, as listed in the electronic record): B/P: 120/79 (03/25/2024 10:39) Pulse: 86 (03/25/2024 10:39) Temperature: 98.2 F [36.8 C] (03/25/2024 10:39) Weight: 128.2 lb [58.15 kg] (03/25/2024 10:39) Height: 64 in [162.6 cm] (12/05/2023 10:27) BMI: 22.1 Pain: 0 (03/25/2024 10:39) (0-10 scale) Ears, Nose, Mouth, Throat: Eye:eomi, perrla Cardiovascular:rrr Respiratory:cta ABD/GI:soft, nnt ,nd Extremities:ambulates with walkier /COMMISSIONER OF CONCILIATION: Hematology & Lymph: Endocrine: Psych:appropriate affect Neuro: Skin: Breasts: axilla nipple discharge Pelvic: external vault cervix bimanual exam rectum wet prep hemoccult DATA REVIEW: HbA1C: HGA1C 5.7 % 08/15/2023 15:41 Lipid Panel: TRIGLYCERIDE 109 mg/dL 10/29/2023 10:59 CHOLESTEROL 149 mg/dL 10/29/2023 10:59 HDL(New) 69 mg/dL 10/29/2023 10:59 CALCULATED LDL 58 mg/dL 10/29/2023 10:59 CMP: SODIUM 141 mEq/L 12/05/2023 11:49 POTASSIUM 4.3 mEq/L 12/05/2023 11:49 CHLORIDE 106 mEq/L 12/05/2023 11:49 UREA NITROGEN 31.8 H mg/dL 12/05/2023 11:49 CREATININE 2.05 H mg/dL 12/05/2023 11:49 CALCIUM 8.8 mg/dL 12/05/2023 11:49 PROTEIN 7.1 g/dL 10/29/2023 10:59 ALBUMIN 4.4 g/dL 12/05/2023 11:49 ALKALINE PHOSPHATASE 54 U/L 10/29/2023 10:59 ALT/SGPT 8 U/L 10/29/2023 10:59 AST/SGOT 16 U/L 10/29/2023 10:59 TOTAL BILIRUBIN 0.4 mg/dL 10/29/2023 10:59 CARBON DIOXIDE 23 mEq/L 12/05/2023 11:49 GLUCOSE 102 H mg/dL 12/05/2023 11:49 EGFR (CKD-EPI 2020) 25.9 12/05/2023 11:49 CBC: WBC 9.0 10*3/uL 12/05/2023 11:49 RBC [...] BASOPHILS, AUTO % 0 % 12/05/2023 11:49 NEUTROPHILS, ABSOLUTE 6.54 10*3/uL 12/05/2023 11:49 LYMPHOCYTES, ABSOLUTE 1.70 10*3/uL 12/05/2023 11:49 MONOCYTES, ABSOLUTE 0.55 10*3/uL 12/05/2023 11:49 EOSINOPHILS, ABSOLUTE 0.12 10*3/uL 12/05/2023 11:49 BASOPHILS, ABSOLUTE 0.02 10*3/uL 12/05/2023 11:49 PSA: No PSA EO data found TSH: TSH 4.716 uIU/mL 10/29/2023 10:59 INR: INR VALUE 1.0 INR 08/15/2023 15:42 PROTIME 11.0 sec 08/15/2023 15:42 UA: URINE COLOR Light-Yellow 10/29/2023 11:36 APPEARANCE Clear 10/29/2023 11:36 U.PH 6.5 10/29/2023 11:36 U.BILIRUBIN Negative mg/dL 10/29/2023 11:36 U.NITRITE Negative mg/dL 10/29/2023 11:36 Dilantin: ____ Digoxin: No data available for: DIGOXIN Chest x-ray: Impression for CHEST X-RAY, 2 VIEWS, 08/15/23, case [id number] No active pulmonary disease. EK08/17/2023 09:15 Local Title: EKG CONSULT ST Standard Title: CARDIOLOGY DIAGNOSTIC STUDY CONSULT AUTHOR: CLINICAL,DEVICE PROXY SERVICE DOCUMENT IN [employer] IMAGING SEE FULL REPORT IN [employer] IMAGING SIGNATURE NOT REQUIRED SEE SIGNATURE IN [employer] IMAGING ([place] EKG) AUTO-INSTRUMENT DIAGNOSIS Procedure: 75033 12 Lead ECG Release Status: Released Off-Line Verified Date Verified: August 17, 2023@09:15:30 05108.2 Ventricular Rate: 68 BPM 35054.3 Atrial Rate: 68 BPM 80758.4 P-R Interval: 174 ms 71847.5 QRS Duration: 90 ms 92538.6 Q-T Interval: 428 ms 31276 QTC Calculation(Bazett)455 ms 05662.12 Calculated P [place]: 73 degrees 77888.13 Calculated R [place]: 65 degrees 54977.14 Calculated T [place]: 63 degrees Normal sinus rhythm Normal ECG When compared with ECG of 18-OCT-2021 14:04, No significant change was found Administrative Closure: 08/17/2023 by: CLINICAL,DEVICE PROXY SERVICE < THE ABOVE NOTE IS UNSIGNED > - DRAFT COPY * DRAFT COPY * DRAFT COPY * DRAFT COPY * DRAFT COPY * DRAFT COPY - Result: Acceptable Follow-up Action: Data results reviewed with patient and/or caregiver. ASSESSMENT/PLAN: 1 recurrent UTI = patient presented both d/c packet papers to me but I am unable to find the hospitalization at [facility]= Ua and urine culture , cmp , cbc ordered - I am hesitate to order ct urogram with patient having stage IV chronic kidney disease . Want to see what studies were done during her hospitalization . Mitch cannot name any radiographic studies done during her hospitalization - Patient signed a MR from [facility] - will refer to urology 2 cri- check cmp 4 Disposition - patient is finding her current housing to increase - will ask our oncology social worker to help with housing for aaron 5 hx of hypomagnesium - check magnesium level RTc in Apr 2024 oncology social worker [place] assistanct [place] PREVENTION & SCREENING: ALCOHOL: Clinical Reminder not due now or within a month BLOOD PRESSURE: Clinical Reminder not due now or within a month HEMOGLOBIN A1C: Clinical Reminder not due now or within a month /ronald ARREDONDO Signed: 03/26/2024 08:51 Receipt Acknowledged By: 03/27/2024 10:07 /sandra/ JACE MEAD Tariff Supervisor 03/26/2024 ADDENDUM STATUS: COMPLETED Please inform patient that the urology referral was discontinued . We need to get the discharge summaries from both hospitalizations a [facility] . We need her to get her UA and urine culture and ultrasound of her kidneys done before they will see her /ronald ARREDONDO Signed: 03/26/2024 12:51 Receipt Acknowledged By: 03/26/2024 13:49 /sandra/ NATALIE GUADALUPE MSN RN REGISTERED NURSE 03/27/2024 ADDENDUM STATUS: COMPLETED CD reqeusted via [facility] to [facility]. Asked to send directly to [facility]. /sandra/ NATALIE GUADALUPE MSN RN REGISTERED NURSE Signed: 03/27/2024 11:38 MAN ARREDONDO [facility] Mar 26, 2024 12:47 PM ADDENDUM: LOCAL TITLE: Addendum STANDARD TITLE: ADDENDUM DATE OF NOTE: MAR 26, 2024@12:47:49 ENTRY DATE: MAR 26, 2024@12:47:50 AUTHOR: MAN ARREDONDO EXP COSIGNER: URGENCY: STATUS: COMPLETED Please inform patient that the urology referral was discontinued . We need to get the discharge summaries from both hospitalizations a [facility] . We need her to get her UA and urine culture and ultrasound of her kidneys done before they will see her /es/ MAN ARREDONDO Signed: 03/26/2024 12:51 Receipt Acknowledged By: 03/26/2024 13:49 /es/ NATALIE LARA RN REGISTERED NURSE --- Original Document --- 03/25/24 PRIMARY CARE PROVIDER ESTABLISHED VISIT STL: ESTABLISHED PATIENT [id number]: REASON FOR VISIT/CHIEF COMPLAINT: f/u HPI: Patient with hx of CKD stage 4 HTN , and hyperparathyroidism , was adm to [facility] on 03/01/2024 ( patient states she require a transfusion , noted that her magnesuim levels were out of wack ) and Mar 01, 2024 for uTi and was d/c on Keflex. NOtes that she has increase propensity to wall . [facility] because her current residency rent increases by $300 WHAT IS YOUR GOAL FOR TODAY? PAST MEDICAL HISTORY: 1) Hearing loss * (ICD-9-CM 389.9) 2) HTN - Hypertension (SNOMED CT 76657752) 3) Hypercholesterolemia, Familial * (ICD-9-CM 272.0) 4) Deficiency of PTH (SNOMED CT 43600287) 5) 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 (SNOMED CT 973065791528111) 6) Depressive Disorder NOS * (ICD-9-CM 311./300.4) 7) Gynecologic Exam 8) OA - Osteoarthritis (SNOMED CT 463310387) 9) Skin tag (SNOMED CT 178407423) 10) Nonvenomous insect bite (SNOMED CT 118683212) 11) Foot callus (SNOMED CT 304082868) 12) Verruca plantaris (SNOMED CT 34760337) 13) Edema (SNOMED CT 506036803) 14) Cramp (SNOMED CT 74797527) 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 MEDICATION RECONCILIATION: I have reviewed the patient's medication list with the patient and/or his/her care-wildfire prevention specialist. Handwritten corrections, additions and/or deletions were made to the list. Corrected Outpatient Medication List was provided to the patient/caregiver. Active Outpatient Medications (including Supplies): Active Outpatient [...] TWICE A DAY ACTIVE 13 Total Medications PHYSICAL EXAMINATION: Female General appearance: VITALS (most recent, as listed in the electronic record): B/P: 120/79 (03/25/2024 10:39) Pulse: 86 (03/25/2024 10:39) Temperature: 98.2 F [36.8 C] (03/25/2024 10:39) Weight: 128.2 lb [58.15 kg] (03/25/2024 10:39) Height: 64 in [162.6 cm] (12/05/2023 10:27) BMI: 22.1 Pain: 0 (03/25/2024 10:39) (0-10 scale) Ears, Nose, Mouth, Throat: Eye:eomi, perrla Cardiovascular:rrr Respiratory:cta ABD/GI:soft, nnt ,nd Extremities:ambulates with walkier /COMMISSIONER OF CONCILIATION: Hematology & Lymph: Endocrine: Psych:appropriate affect Neuro: Skin: Breasts: axilla nipple discharge Pelvic: external vault cervix bimanual exam rectum wet prep hemoccult DATA REVIEW: HbA1C: HGA1C 5.7 % 08/15/2023 15:41 Lipid Panel: TRIGLYCERIDE 109 mg/dL 10/29/2023 10:59 CHOLESTEROL 149 mg/dL 10/29/2023 10:59 HDL(New) 69 mg/dL 10/29/2023 10:59 CALCULATED LDL 58 mg/dL 10/29/2023 10:59 CMP: SODIUM 141 mEq/L 12/05/2023 11:49 POTASSIUM 4.3 mEq/L 12/05/2023 11:49 CHLORIDE 106 mEq/L 12/05/2023 11:49 UREA NITROGEN 31.8 H mg/dL 12/05/2023 11:49 CREATININE 2.05 H mg/dL 12/05/2023 11:49 CALCIUM 8.8 mg/dL 12/05/2023 11:49 PROTEIN 7.1 g/dL 10/29/2023 10:59 ALBUMIN 4.4 g/dL 12/05/2023 11:49 ALKALINE PHOSPHATASE 54 U/L 10/29/2023 10:59 ALT/SGPT 8 U/L 10/29/2023 10:59 AST/SGOT 16 U/L 10/29/2023 10:59 TOTAL BILIRUBIN 0.4 mg/dL 10/29/2023 10:59 CARBON DIOXIDE 23 mEq/L 12/05/2023 11:49 GLUCOSE 102 H mg/dL 12/05/2023 11:49 EGFR (CKD-EPI 2020) 25.9 12/05/2023 11:49 CBC: WBC 9.0 10*3/uL 12/05/2023 11:49 RBC [...] BASOPHILS, AUTO % 0 % 12/05/2023 11:49 NEUTROPHILS, ABSOLUTE 6.54 10*3/uL 12/05/2023 11:49 LYMPHOCYTES, ABSOLUTE 1.70 10*3/uL 12/05/2023 11:49 MONOCYTES, ABSOLUTE 0.55 10*3/uL 12/05/2023 11:49 EOSINOPHILS, ABSOLUTE 0.12 10*3/uL 12/05/2023 11:49 BASOPHILS, ABSOLUTE 0.02 10*3/uL 12/05/2023 11:49 PSA: No PSA EO data found TSH: TSH 4.716 uIU/mL 10/29/2023 10:59 INR: INR VALUE 1.0 INR 08/15/2023 15:42 PROTIME 11.0 sec 08/15/2023 15:42 UA: URINE COLOR Light-Yellow 10/29/2023 11:36 APPEARANCE Clear 10/29/2023 11:36 U.PH 6.5 10/29/2023 11:36 U.BILIRUBIN Negative mg/dL 10/29/2023 11:36 U.NITRITE Negative mg/dL 10/29/2023 11:36 Dilantin: ____ Digoxin: No data available for: DIGOXIN Chest x-ray: Impression for CHEST X-RAY, 2 VIEWS, 08/15/23, case [id number] No active pulmonary disease. EK08/17/2023 09:15 Local Title: EKG CONSULT STL Standard Title: CARDIOLOGY DIAGNOSTIC STUDY CONSULT AUTHOR: CLINICAL,DEVICE PROXY SERVICE DOCUMENT IN [facility] SEE FULL REPORT IN [facility] SIGNATURE NOT REQUIRED SEE SIGNATURE IN [facility] ([place] EKG) AUTO-INSTRUMENT DIAGNOSIS Procedure: [id number] 12 Lead ECG Release Status: Released Off-Line Verified Date Verified: August 17, 2023@09:15:30 54269.2 Ventricular Rate: 68 BPM 99094.3 Atrial Rate: 68 BPM 41914.4 P-R Interval: 174 ms 86437.5 QRS Duration: 90 ms 08938.6 Q-T Interval: 428 ms 42360 QTC Calculation(Bazett)455 ms 79133.12 Calculated P [place]: 73 degrees 39015.13 Calculated R [place]: 65 degrees 13671.14 Calculated T [place]: 63 degrees Normal sinus rhythm Normal ECG When compared with ECG of 18-OCT-2021 14:04, No significant change was found Administrative Closure: 08/17/2023 by: CLINICAL,DEVICE PROXY SERVICE < THE ABOVE NOTE IS UNSIGNED > - DRAFT COPY * DRAFT COPY * DRAFT COPY * DRAFT COPY * DRAFT COPY * DRAFT COPY - Result: Acceptable Follow-up Action: Data results reviewed with patient and/or caregiver. ASSESSMENT/PLAN: 1 recurrent UTI = patient presented both d/c packet papers to me but I am unable to find the hospitalization at [facility]= Ua and urine culture , cmp , cbc ordered - I am hesitate to order ct urogram with patient having stage IV chronic kidney disease . Want to see what studies were done during her hospitalization . Mitch cannot name any radiographic studies done during her hospitalization - Patient signed a MR from [facility] - will refer to urology 2 cri- check cmp 4 Disposition - patient is finding her current housing to increase - will ask our oncology social worker to help with housing for aaron 5 hx of hypomagnesium - check magnesium level RTc in Apr 2024 oncology social worker [place] assistanct livein[place] PREVENTION & SCREENING: ALCOHOL: Clinical Reminder not due now or within a month BLOOD PRESSURE: Clinical Reminder not due now or within a month HEMOGLOBIN A1C: Clinical Reminder not due now or within a month /sandra/ MAN ARREDONDO Signed: 03/26/2024 08:51 Receipt Acknowledged By: * AWAITING SIGNATURE * JACE SARGENT INGRID D [facility] Mar 26, 2024 08:52 AM PHYSICIAN LETTERS: LOCAL TITLE: TEST RESULT GENERAL LETTER STL STANDARD TITLE: PHYSICIAN LETTERS DATE OF NOTE: MAR 26, 2024@08:52 ENTRY DATE: MAR 26, 2024@08:52:30 AUTHOR: MAN ARREDONDO EXP COSIGNER: URGENCY: STATUS: COMPLETED [employer] [address] [place] [address] MAR 26, 2024 [address]I [address]AD [address] [place] [address] DR RONQUILLO [address] [place] [id number] Dear Hali Trinidad, I would like to update you on your recent test results. CBC - A complete blood count (CBC) gives important information about the kinds and numbers of cells in the blood, especially red blood cells, white blood cells, and platelets. HGB 10.1 L g/dL 03/25/2024 11:45 HEMATOCRIT 32.6 % (03/25/24 11:45) PLT 283 10*3/uL 03/25/2024 11:45 WHITE BLOOD COUNT 9.9 10*3/uL (03/25/24 11:45) These results are abnormal. You have mild anemia . Most likely secondary to your kidney disease CHEM 7 - This is important information about the current status of your kidneys, liver, and electrolyte and acid/base balance as well as of your blood sugar and blood proteins. SODIUM 140 mEq/L 03/25/2024 11:45 POTASSIUM 3.9 mEq/L 03/25/2024 11:45 CHLORIDE 100 mEq/L 03/25/2024 11:45 UREA NITROGEN 31.5 H mg/dL 03/25/2024 11:45 CREATININE 2.62 H mg/dL 03/25/2024 11:45 CALCIUM 10.3 mg/dL 03/25/2024 11:45 CARBON DIOXIDE 25 mEq/L 03/25/2024 11:45 GLUCOSE 89 mg/dL 03/25/2024 11:45 EGFR (CKD-EPI 2020) 19.3 03/25/2024 11:45 These results are abnormal. Your creatine is elevated . Please keep your appointment with nephrology LIVER FUNCTION PANEL - These are tests for liver function: PROTEIN 7.7 g/dL 03/25/2024 11:45 ALBUMIN 4.0 g/dL 03/25/2024 11:45 TOTAL BILIRUBIN 0.4 mg/dL 03/25/2024 11:45 ALKALINE PHOSPHATASE 64 U/L 03/25/2024 11:45 AST/SGOT 20 U/L 03/25/2024 11:45 ALT/SGPT 7 L U/L 03/25/2024 11:45 These readings are within normal limits. FUTURE APPOINTMENTS: 03/27/2024 13:00 [facility]NEUROLOGY AL-DAHHAK 04/08/2024 12:00 [facility]-DENTAL DDS2 PROC 05/16/2024 12:00 [facility]-DENTAL HYG 1 05/20/2024 12:00 [facility]-DENTAL DDS2 PROC 05/30/2024 10:00 [facility]-ST CLR VVC PACT 2 PCP 06/20/2024 11:00 [facility]-OPTOMETRY 1 08/04/2024 11:40 [facility]-RENAL RAUCHMAN 08/11/2024 12:20 [facility]-PHONE GI PRESTI 10/28/2024 13:45 [facility]-OLV [facility] 11/26/2024 11:00 [facility]-RENAL NP2 Sincerely, HALI TOVAR,MAN [facility] Mar 25, 2024 11:15 AM PRIMARY CARE NOTE: LOCAL TITLE: PRIMARY CARE PROVIDER ESTABLISHED VISIT [facility] STANDARD TITLE: PRIMARY CARE NOTE DATE OF NOTE: MAR 25, 2024@11:15 ENTRY DATE: MAR 25, 2024@11:15:16 AUTHOR: MAN ARREDONDO EXP COSIGNER: URGENCY: STATUS: COMPLETED PRIMARY CARE PROVIDER ESTABLISHED VISIT STL Has ADDENDA ESTABLISHED PATIENT [id number]: REASON FOR VISIT/CHIEF COMPLAINT: f/u HPI: Patient with hx of CKD stage 4 HTN , and hyperparathyroidism , was adm to [facility] on 03/01/2024 ( patient states she require a transfusion , noted that her magnesuim levels were out of wack ) and Mar 01, 2024 for uTi and was d/c on Keflex. NOtes that she has increase propensity to wall . [facility] is [facility] because her current residency rent increases by $300 WHAT IS YOUR GOAL FOR TODAY? PAST MEDICAL HISTORY: 1) Hearing loss * (ICD-9-CM 389.9) 2) HTN - Hypertension (SNOMED CT 21299040) 3) Hypercholesterolemia, Familial * (ICD-9-CM 272.0) 4) Deficiency of PTH (SNOMED CT 87481314) 5) 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 (SNOMED CT 859339024248949) 6) Depressive Disorder NOS * (ICD-9-CM 311./300.4) 7) Gynecologic Exam 8) OA - Osteoarthritis (SNOMED CT 102094388) 9) Skin tag (SNOMED CT 884185144) 10) Nonvenomous insect bite (SNOMED CT 948918074) 11) Foot callus (SNOMED CT 933950202) 12) Verruca plantaris (SNOMED CT 52357815) 13) Edema (SNOMED CT 393664906) 14) Cramp (SNOMED CT 72027817) 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 MEDICATION RECONCILIATION: I have reviewed the patient's medication list with the patient and/or his/her care-wildfire prevention specialist. Handwritten corrections, additions and/or deletions were made to the list. Corrected Outpatient Medication List was provided to the patient/caregiver. Active Outpatient Medications (including Supplies): Active Outpatient [...] TWICE A DAY ACTIVE 13 Total Medications PHYSICAL EXAMINATION: Female General appearance: VITALS (most recent, as listed in the electronic record): B/P: 120/79 (03/25/2024 10:39) Pulse: 86 (03/25/2024 10:39) Temperature: 98.2 F [36.8 C] (03/25/2024 10:39) Weight: 128.2 lb [58.15 kg] (03/25/2024 10:39) Height: 64 in [162.6 cm] (12/05/2023 10:27) BMI: 22.1 Pain: 0 (03/25/2024 10:39) (0-10 scale) Ears, Nose, Mouth, Throat: Eye:eomi, perrla Cardiovascular:rrr Respiratory:cta ABD/GI:soft, nnt ,nd Extremities:ambulates with walkier /COMMISSIONER OF CONCILIATION: Hematology & Lymph: Endocrine: Psych:appropriate affect Neuro: Skin: Breasts: axilla nipple discharge Pelvic: external vault cervix bimanual exam rectum wet prep hemoccult DATA REVIEW: HbA1C: HGA1C 5.7 % 08/15/2023 15:41 Lipid Panel: TRIGLYCERIDE 109 mg/dL 10/29/2023 10:59 CHOLESTEROL 149 mg/dL 10/29/2023 10:59 HDL(New) 69 mg/dL 10/29/2023 10:59 CALCULATED LDL 58 mg/dL 10/29/2023 10:59 CMP: SODIUM 141 mEq/L 12/05/2023 11:49 POTASSIUM 4.3 mEq/L 12/05/2023 11:49 CHLORIDE 106 mEq/L 12/05/2023 11:49 UREA NITROGEN 31.8 H mg/dL 12/05/2023 11:49 CREATININE 2.05 H mg/dL 12/05/2023 11:49 CALCIUM 8.8 mg/dL 12/05/2023 11:49 PROTEIN 7.1 g/dL 10/29/2023 10:59 ALBUMIN 4.4 g/dL 12/05/2023 11:49 ALKALINE PHOSPHATASE 54 U/L 10/29/2023 10:59 ALT/SGPT 8 U/L 10/29/2023 10:59 AST/SGOT 16 U/L 10/29/2023 10:59 TOTAL BILIRUBIN 0.4 mg/dL 10/29/2023 10:59 CARBON DIOXIDE 23 mEq/L 12/05/2023 11:49 GLUCOSE 102 H mg/dL 12/05/2023 11:49 EGFR (CKD-EPI 2020) 25.9 12/05/2023 11:49 CBC: WBC 9.0 10*3/uL 12/05/2023 11:49 RBC [...] BASOPHILS, AUTO % 0 % 12/05/2023 11:49 NEUTROPHILS, ABSOLUTE 6.54 10*3/uL 12/05/2023 11:49 LYMPHOCYTES, ABSOLUTE 1.70 10*3/uL 12/05/2023 11:49 MONOCYTES, ABSOLUTE 0.55 10*3/uL 12/05/2023 11:49 EOSINOPHILS, ABSOLUTE 0.12 10*3/uL 12/05/2023 11:49 BASOPHILS, ABSOLUTE 0.02 10*3/uL 12/05/2023 11:49 PSA: No PSA EO data found TSH: TSH 4.716 uIU/mL 10/29/2023 10:59 INR: INR VALUE 1.0 INR 08/15/2023 15:42 PROTIME 11.0 sec 08/15/2023 15:42 UA: URINE COLOR Light-Yellow 10/29/2023 11:36 APPEARANCE Clear 10/29/2023 11:36 U.PH 6.5 10/29/2023 11:36 U.BILIRUBIN Negative mg/dL 10/29/2023 11:36 U.NITRITE Negative mg/dL 10/29/2023 11:36 Dilantin: ____ Digoxin: No data available for: DIGOXIN Chest x-ray: Impression for CHEST X-RAY, 2 VIEWS, 08/15/23, case [id number] No active pulmonary disease. EK08/17/2023 09:15 Local Title: EKG CONSULT STL Standard Title: CARDIOLOGY DIAGNOSTIC STUDY CONSULT AUTHOR: CLINICAL,DEVICE PROXY SERVICE DOCUMENT IN [employer] [facility] SEE FULL REPORT IN [employer] [facility] SIGNATURE NOT REQUIRED SEE SIGNATURE IN VISTA IMAGING ([place] EKG) AUTO-INSTRUMENT DIAGNOSIS Procedure: [id number] 12 Lead ECG Release Status: Released Off-Line Verified Date Verified: August 17, 2023@09:15:30 12468.2 Ventricular Rate: 68 BPM 93526.3 Atrial Rate: 68 BPM 84871.4 P-R Interval: 174 ms 47517.5 QRS Duration: 90 ms 87485.6 Q-T Interval: 428 ms 99633 QTC Calculation(Bazett)455 ms 15979.12 Calculated P [place]: 73 degrees 80168.13 Calculated R [place]: 65 degrees 81493.14 Calculated T [place]: 63 degrees Normal sinus rhythm Normal ECG When compared with ECG of 18-OCT-2021 14:04, No significant change was found Administrative Closure: 08/17/2023 by: CLINICAL,DEVICE PROXY SERVICE < THE ABOVE NOTE IS UNSIGNED > - DRAFT COPY * DRAFT COPY * DRAFT COPY * DRAFT COPY * DRAFT COPY * DRAFT COPY - Result: Acceptable Follow-up Action: Data results reviewed with patient and/or caregiver. ASSESSMENT/PLAN: 1 recurrent UTI = patient presented both d/c packet papers to me but I am unable to find the hospitalization at [facility]= Ua and urine culture , cmp , cbc ordered - I am hesitate to order ct urogram with patient having stage IV chronic kidney disease . Want to see what studies were done during her hospitalization . Mitch cannot name any radiographic studies done during her hospitalization - Patient signed a MR from [facility] - will refer to urology 2 cri- check cmp 4 Disposition - patient is finding her current housing to increase - will ask our oncology social worker to help with housing for aaron 5 hx of hypomagnesium - check magnesium level RTc in Apr 2024 oncology social worker JOSSELIN pritchard PREVENTION & SCREENING: ALCOHOL: Clinical Reminder not due now or within a month BLOOD PRESSURE: Clinical Reminder not due now or within a month HEMOGLOBIN A1C: Clinical Reminder not due now or within a month /ronald ARREDONDO Signed: 03/26/2024 08:51 Receipt Acknowledged By: 03/27/2024 10:07 /es/ JACE MEAD Tariff Supervisor 03/26/2024 ADDENDUM STATUS: COMPLETED Please inform patient that the urology referral was discontinued . We need to get the discharge summaries from both hospitalizations a [facility] . We need her to get her UA and urine culture and ultrasound of her kidneys done before they will see her /ronald ARREDONDO Signed: 03/26/2024 12:51 Receipt Acknowledged By: 03/26/2024 13:49 /es/ NATALIE GUADALUPE MSN RN REGISTERED NURSE 03/27/2024 ADDENDUM STATUS: COMPLETED discharge summary from [facility] showed ctscan of abd/pelvis done on 02/23/2024 showed no acute abdominal pelvic procress detected no pelvic fracture idedntifited possible bilaterla renal lession , my represent hemorrhagic /peoteinacous cyst , other renal mass , or artifact . Given renal functio , consider nonemergic but timely renal MRI with and without contrast Sugestion of mild diffus ossesous sclerosis as can be seen with myelo fibrosis mactrocystois , leukemia lympha , sickle cell anemia , metabolic processes suche as renal osteydystrophy and other entities . Ctscanof brain done on 02/22/2014 no acute intracranial process 1Please inform patient that I will order MRI of kidneys with and without contrast to see about her kidney masses 2Please obtain radiographic disc of patient hospitalziation in Feb and Mar /sandra/ MAN ARREDONDO Signed: 03/27/2024 11:32 Receipt Acknowledged By: 03/27/2024 11:37 /sandra/ NATALIE GUADALUPE MSN RN REGISTERED NURSE 03/27/2024 ADDENDUM STATUS: COMPLETED CD reqeusted via [employer] to [facility]. Asked to send directly to radiology. /sandra/ NATALIE GUADALUPE MSN RN REGISTERED NURSE Signed: 03/27/2024 11:38 MAN ARREDONDO [facility] Mar 25, 2024 10:41 AM NURSING NOTE: LOCAL TITLE: V15 PACT FACE TO FACE NOTE ST STANDARD TITLE: NURSING NOTE DATE OF NOTE: MAR 25, 2024@10:41 ENTRY DATE: MAR 25, 2024@10:41:41 AUTHOR: MORRO PEREZ EXP COSIGNER: URGENCY: STATUS: COMPLETED Provider Visit: Patient Identifiers : Full Name Date of Reason for visit: Established Follow-Up Mode of Arrival: Assistive Device: WHEELED WALKER Allergy Review: AMLODIPINE Allergy list reviewed and remains current. Recent Vital Signs: Temperature: 98.2 F [36.8 C] (03/25/2024 10:39) Pulse: 86 (03/25/2024 10:39) Respiration: 18 (03/25/2024 10:39) B/P: 120/79 (03/25/2024 10:39) Pain: 0 (03/25/2024 10:39) Wt: 128.2 lb [58.15 kg] (03/25/2024 10:39) Ht: 64 in [162.6 cm] (12/05/2023 10:27) BMI: 22.1 POX: 96% (03/25/2024 10:39) PERSONAL HEALTH INVENTORY Notes: No data available for PHI note titles PERSONAL HEALTH INVENTORY - MAP: No data available for PHI MAP What matters most to you in your life right now? [place]'s Response: MY GRANDDAUGHTER Would you like to discuss any personal problem, family problem, alcohol use, drug use, or a mental or emotional illness? No My [facility] ([facility]), please select appointment type: Face to face: Yes- Done Contact provided Primary Care phone number and encouraged to call if any questions or concerns. Review that after hours nurse line [phone] and emergency room are available 06/11 for patient use. Contact verbalized good understanding. Sexual Orientation - CP,L,N,P,PH,PS,S,U: The patient thinks of their sexual orientation as: Straight or Heterosexual COVID-19 Immunization - L,N,P,PH,U: Additional Information: CDC Interim Clinical Considerations for Use of COVID-19 Vaccines in [facility] COVID-19 Vaccine SharePoint Pfizer Monovalent (Comirnaty) Administered: COVID-19 (PFIZER), MRNA, LNP-S, PF, PATTIE-SUCROSE, 30 MCG/0.3 ML (AGES 12+ YEARS) Date Administered: Mar 25, 2024 10:30 Crime Scene Photographer: [employer] Lot: [id number] Exp Date: Jul 15, 2024 [facility]: [id number] Admin Route/Site: INTRAMUSCULAR/RIGHT DELTOID Dosage: 0.3mL Vaccine Information Statement(s): COVID-19 MRNA VACCINE (12+ YRS) VIS Jan 31, 2024 (SWAZI) Order By: Policy Administered By: Morro Perez Vaccine administered without complications. Influenza Immunization - L,N,P,PH,U: Influenza, High-Dose, Trivalent, Preservative Free (Fluzone-Syringe) Administered: INFLUENZA, HIGH-DOSE, TRIVALENT, PF Date Administered: Mar 25, 2024 10:30 Crime Scene Photographer: SANOFI PASTEUR Lot: [id number] Exp Date: Oct 13, 2024 [facility]: [phone] Admin Route/Site: INTRAMUSCULAR/LEFT DELTOID Dosage: 0.5mL Vaccine Information Statement(s): INFLUENZA(FLU) VACC(INACTIVATED OR RECOMBINANT)VIS Nov 19, 2020 (SWAZI) Order By: Policy Administered By: Morro Perez The Influenza Vaccine Information Statement (VIS) was reviewed with the patient/caregiver which lists the benefits and risks of the vaccine and the risks of not receiving the Influenza vaccine. The patient/caregiver denied any prior severe reaction to this vaccine or its components or a severe allergic reaction, such as anaphylaxis, to any vaccine or any injectable therapy. The patient/caregiver gave verbal consent to receive the vaccine. /sandra/ MORRO PEREZ LICENSED PRACTICAL NURSE Signed: 03/25/2024 10:59 MORRO PEREZ [facility]
--- OUTSIDE RECORDS SUMMARY | 2024-11-30 14:52 | XMS_ITS | Encounter Summary ---
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 Date/Time Encounter Type Encounter Description Reason Provider Source Mar 27, 2024 11:22 AM Outpatient Encounter GENERAL INTERNAL MEDICINE GLORIA RUIZ Encounter Template Text not used by NE Plan of Treatment: Future Appointments (+ 6 months) and Future Tests (+/- 45 days) The Plan of Treatment section includes future care activities for the patient from all [facility]. This section includes future appointments and future orders which are active, pending or scheduled. Future Appointments This section includes appointments that were scheduled to occur 6 months from the date of the Encounter, up to a maximum of 20 appointments. The data comes from all [place] treatment facilities. Appointment Date/Time Appointment Type Appointme nt Facility Name Mar 28, 2024 10:49 AM AMBULATORY - MEDICINE [facility] Apr 02, 2024 10:00 AM AMBULATORY - MEDICINE [facility] Apr 14, 2024 02:30 PM AMBULATORY - MEDICINE [facility] Apr 30, 2024 02:00 PM AMBULATORY - NONE . [facility] May 06, 2024 10:30 AM AMBULATORY - NONE [facility] May 30, 2024 10:00 AM AMBULATORY - MEDICINE [facility] May 30, 2024 01:30 PM AMBULATORY - NONE . [facility] Jun 13, 2024 09:00 AM AMBULATORY - SURGERY [facility] Jun 20, 2024 11:00 AM AMBULATORY - SURGERY [facility] Jul 09, 2024 01:00 PM AMBULATORY - SURGERY [facility] Jul 18, 2024 11:40 AM AMBULATORY - MEDICINE [facility] Jul 29, 2024 12:00 PM AMBULATORY - NONE . [facility] Aug 11, 2024 12:20 PM AMBULATORY - MEDICINE [facility] September 09, 2024 12:00 PM AMBULATORY - NONE [facility] Active, Pending, and Scheduled Orders This section includes a listing of several types of active, pending, and scheduled orders, including clinic medications orders, diagnostic test orders, procedure orders and consult orders; where the start date of the order is 45 days before the date of the Encounter or 45 days after the date of theEncounter. The data comes from all [facility] facilities. Test Date/Time Test Type Test Details Facility Name Mar 25, 2024 12:00 AM Laboratory - Chemi stry Order URINALYSIS (STL-PB) URINE [facility] Mar 25, 2024 12:00 AM Laboratory - Microbiology Order C&S URINE URINE,CLEAN CATCH [facility] Mar 28, 2024 11:15 AM Laboratory - Chemi stry Order COPPER BLOOD IN AM [facility] Lab Results: +/- 30 days of the encounter This section includes the Chemistry and Hematology Lab Results on record with NE for the patient. Radiology Reports and Pathology Reports are provided separately, in subsequent sections. Lab Results This section contains the Chemistry/Hematology Results that were resulted 30 days before or 30 daysafter the date of the Encounter. Date/Time Source Result Type Result - Unit Interpretation Reference Range Specimen Type Comment Mar 30, 2024 07:44 AM [facility] CBC BLOOD Specimen Type: BLOOD No comment entered. Ordering Provider: REINA PANDEY Report Released Date/Time: Mar 28, 2024 03:46 PM Reporting Lab: [facility] [address] [facility] [address] Performing Lab: [address] [address] WBC 6.7 10*3/uL 3.6-11.2 RBC 3.35 10*6/uL [...] 0.00-0. 20 Mar 30, 2024 07:44 AM [facility] BASIC METABOLIC PANEL PLASMA Specimen Type: PL ASMA Comment: No hemolysis noted. Ordering Provider: REINA PANDEY Report Released Date/Time: Mar 28, 2024 03:46 PM Reporting Lab: [address] [address] Performing Lab: [address] [address] CREATININE 2.19 mg/dL H 0.6-1.1 UREA NITROGEN 30.2 mg/dL H 9.0-25.0 GLUCOSE 123 mg/dL H 72-99 SODIUM 144 meq/L 136-145 POTASSIUM 3.6 meq/L 3.5-5 CHLORIDE 106 meq/L 98-107 CARBON DIOXIDE 24 meq/L 22-31 CALCIUM 10.8 mg/dL H 8.4-10.4 EGFR (CKD-EPI 2020) 24.0 >60 Mar 29, 2024 07:59 AM [facility] CORTISOL(STL Eff 01/21) PLASMA Specimen Type: PLASMA Comment: No hemolysis noted. Ordering Provider: REINA PANDEY Report Released Date/Time: Mar 28, 2024 05:00 PM Reporting Lab: [address] [address] Performing Lab: [address] [address] CORTISOL(STL Eff 01/21) 14.700 ug/dL Mar 29, 2024 07:59 AM [facility] BASIC METABOLIC PANEL PLASMA Specimen Type: PL ASMA Comment: No hemolysis noted. Ordering Provider: REINA PANDEY Report Released Date/Time: Mar 28, 2024 03:46 PM Reporting Lab: [address] [address] Performing Lab: [address] [address] CREATININE 2.58 mg/dL H 0.6-1.1 UREA NITROGEN 39.0 mg/dL H 9.0-25.0 GLUCOSE 137 mg/dL H 72-99 SODIUM 145 meq/L 136-145 POTASSIUM 3.8 meq/L 3.5-5 CHLORIDE 106 meq/L 98-107 CARBON DIOXIDE 24 meq/L 22-31 CALCIUM 10.9 mg/dL H 8.4-10.4 EGFR (CKD-EPI 2020) 19.7 >60 Mar 29, 2024 07:59 AM [facility] CBC BLOOD Specimen Type: BLOOD No comment entered. Ordering Provider: REINA PANDEY Report Released Date/Time: Mar 28, 2024 03:46 PM Reporting Lab: [address] [address] Performing Lab: [address] [address] WBC 5.9 10*3/uL 3.6-11.2 RBC 3.27 10*6/uL [...] 0.00-0. 20 Mar 28, 2024 07:20 PM [facility] URINALYSIS W/ CX REFLEX (STL-PB) URINE Specim en Type: URINE No comment entered. Ordering Provider: REINA PANDEY Report Released Date/Time: Mar 28, 2024 02:27 PM Reporting Lab: [place] [address] [facility] [address] Performing Lab: [facility] [address] [facility] [address] URINE COLOR Colorless Yellow U.BILIRUBIN Negative mg/dL Negative U.PH 7.5 5.0-8.0 APPEARANCE Clear Clear U.NITRITE Negative mg/dL Negative URN.GLUCOSE Normal mg/dL Negative URN.PROTEIN Negative mg/dL URN.UROBILINOGEN Normal mg/dL Normal URN.BLOOD Negative mg/dL Negative-Trace URN.KETONES Negative mg/dL Negative-Trac e URN.LEUK.EST. Negative mg/dL Negative-Tr kiarra URN.SPECIFIC GRAVITY 1.008 Mar 28, 2024 06:11 PM [facility] METHYLMALONIC ACID SERUM Specimen Type: SERUM [...] neural tube defects and intrauterine growth restriction. [facility] utilized Multi-Modal Decomposition (MMD) analysis to establish first and second trimester- specific MMA reference intervals in , as given below: MMA, First trimester (<13 wks gestation): 58-167 nmol/L MMA, Second trimester (13-23 wks gestation): 63-241 nmol/L This test was developed and its analytical performance characteristics have been determined by [facility]. It has not been cleared or approved by the FDA. This assay has been validated pursuant to the CLIA regulations and is used for clinical purposes. Test Performed by [facility], [address] [place], [place] Iker Simon M.D., Ph.D., Director of Laboratories , [facility] [id number] Ordering Provider: REINA PANDEY Report Released Date/Time: Mar 28, 2024 03:46 PM Reporting Lab: [place] [address] [facility] [address] Performing Lab: [facility] [address] [facility] METHYLMALONIC ACID 512 nmol/L H 69-390 Mar 28, 2024 06:11 PM [facility] B12 SERUM Specimen Type: SERUM No comment entered. Ordering Provider: REINA PANDEY Report Released Date/Time: Mar 28, 2024 03:46 PM Reporting Lab: [place] [address] [facility] [address] Performing Lab: [place] [address] [facility] [address] B12 287 pg/mL 213-816 Mar 28, 2024 06:11 PM [facility] FOLATE ([facility]) SERUM Specimen Type: SERUM No comment entered. Ordering Provider: REINA PANDEY Report Released Date/Time: Mar 28, 2024 03:46 PM Reporting Lab: [place] [address] [facility] [address] Performing Lab: [place] [address] [facility] [address] FOLATE (L-MA) 13.9 ng/mL 7-20 Mar 28, 2024 06:11 PM [facility] TSH W/ REFLEX FT4 ([facility]) PLASMA Specimen Type: PLASMA No comment entered. Ordering Provider: REINA PANDEY Report Released Date/Time: Mar 28, 2024 03:46 PM Reporting Lab: [place] [address] [facility] [address] Performing Lab: [place] [address] [facility] [address] TSH 2.508 u[IU]/mL 0.47-5 Mar 28, 2024 06:11 PM [facility] COMPREHENSIVE METABOLIC PANEL PLASMA Specimen Type: PLASMA Comment: No hemolysis noted. Ordering Provider: REINA PANDEY Report Released Date/Time: Mar 28, 2024 03:46 PM Reporting Lab: [address] [address] Performing Lab: [address] [address] CREATININE 2.68 mg/dL H 0.6-1.1 UREA NITROGEN [...] 18.8 >60 Mar 28, 2024 06:11 PM [facility] HGA1C BLOOD Specimen Type: BLOOD No comment entered. Ordering Provider: REINA PANDEY Report Released Date/Time: Mar 28, 2024 03:46 PM Reporting Lab: [address] [address] Performing Lab: [address] [address] HGA1C 5.5 4.0-6.0 Mar 28, 2024 06:11 PM [facility] CBC BLOOD Specimen Type: BLOOD No comment entered. Ordering Provider: REINA PANDEY Report Released Date/Time: Mar 28, 2024 03:46 PM Reporting Lab: [address] [address] Performing Lab: [address] [address] WBC 9.0 10*3/uL 3.6-11.2 RBC 3.31 10*6/uL [...] 0.00-0. 20 Mar 28, 2024 04:18 PM [facility] MRSA SURVL NARES DNA NARES Specimen Type: NA RES Comment: Qualitative real-time PCR test for the [...] 28, 2024 04:15 PM Reporting Lab: [address] [address] Performing Lab: [address] [address] MRSA SURVL NARES DNA Negative Negative Mar 28, 2024 11:10 AM [facility] B12 SERUM Specimen Type: SERUM No comment entered. Ordering Provider: CLEMENT PAN Report Released Date/Time: Mar 28, 2024 11:15 AM Reporting Lab: [facility] [address] [place] [address] Performing Lab: [address] [address] B12 247 pg/mL 213-816 Mar 28, 2024 11:10 AM [facility] BASIC METABOLIC PANEL PLASMA Specimen Type: PL ASMA Comment: No hemolysis noted. Ordering Provider: CLEMENT PAN Report Released Date/Time: Mar 28, 2024 11:15 AM Reporting Lab: [address] [address] Performing Lab: [address] [address] CREATININE 2.90 mg/dL H 0.6-1.1 UREA NITROGEN 40.6 mg/dL H 9.0-25.0 GLUCOSE 99 mg/dL 72-99 SODIUM 140 meq/L 136-145 POTASSIUM 4.2 meq/L 3.5-5 CHLORIDE 104 meq/L 98-107 CARBON DIOXIDE 22 meq/L 22-31 CALCIUM 11.3 mg/dL H 8.4-10.4 EGFR (CKD-EPI 2020) 17.1 >60 Mar 28, 2024 11:10 AM [facility] CBC BLOOD Specimen Type: BLOOD No comment entered. Ordering Provider: CLEMENT PAN Report Released Date/Time: Mar 28, 2024 11:15 AM Reporting Lab: [address] [address] Performing Lab: [address] [address] WBC 9.9 10*3/uL 3.6-11.2 RBC 3.34 10*6/uL [...] 10*3/uL 2.10-8.00 Mar 25, 2024 11:45 AM [facility] MAGNESIUM PLASMA Specimen Type: PLASM A Comment: No hemolysis noted. Ordering Provider: MAN ARREDONDO Report Released Date/Time: Mar 25, 2024 11:30 AM Reporting Lab: [facility] [address] [place] [address] Performing Lab: [facility] [address] [place] [address] MAGNESIUM 1.8 mg/dL 1.6-2.6 Mar 25, 2024 11:45 AM [facility] COMPREHENSIVE METABOLIC PANEL PLASMA Specimen Type: PLASMA Comment: No hemolysis noted. Ordering Provider: MAN ARREDONDO Report Released Date/Time: Mar 25, 2024 11:30 AM Reporting Lab: [facility] [address] [place] [address] Performing Lab: [facility] [address] [place] [address] CREATININE 2.62 mg/dL H 0.6-1.1 UREA NITROGEN [...] 19.3 >60 Mar 25, 2024 11:45 AM [facility] CBC BLOOD Specimen Type: BLOOD No comment entered. Ordering Provider: MAN ARREDONDO Report Released Date/Time: Mar 25, 2024 11:30 AM Reporting Lab: [facility] [address] [facility] [address] Performing Lab: [facility] [address] [place] [address] WBC 9.9 10*3/uL 3.6-11.2 RBC 3.36 10*6/uL [...] 0.60 BASOPHILS, ABSOLUTE 0.03 10*3/uL 0.00-0. 20 Social History: Smoking Status (Most current) and Tobacco Use (All prior to encounter date) This section includes the most current, and the historical, smoking and tobacco- related health factors from the [place] facility where the Encounter took place. Current Smoking Status This section includes the most current smoking, or tobacco-related health factor, from the NE facility where the Encounter took place. Date/Time Current Smoking Status Comment Abbie castillo Sep 24, 2023 01:20 PM [place]-TOBACCO FORMER USER [facility] Tobacco Use History This section includes a history of the smoking, or tobacco-related health factors, that were collected on or before the date of the Encounter. The data comes from the NE facility where the Encounter took place. Date/Time Smoking Status/Tobacco Use Comment Asuncion castano Sep 24, 2023 01:20 PM VA-TOBACCO QUIT 15 YRS OR MORE [facility] Apr 06, 2021 07:54 PM ORYX ADMIT TOBACCO SCREEN NO [facility] Jul 26, 2020 09:33 AM VA-TOBACCO FORMER USER [facility] Jul 26, 2020 09:33 AM VA-TOBACCO QUIT 15 YRS OR MORE [facility] Aug 13, 2019 05:31 PM ORYX ADMIT TOBACCO SCREEN NO [facility] Nov 26, 2008 11:49 AM QUIT TOBACCO >7 YEARS AGO [facility] Advance Directives: All historical and current Section Date Range: From patient's date of to the date document was created. This section includes ALL of a patient's completed or amended NE Advance and Rescinded Directives. The entries below indicate that a directive exists for the patient, but an actual copy is not included with this document. The data comes from all [facility]. Date Advance Directives Provider Source Nov 18, 2021 STATE-AUTHORIZED POR TABLE ORDERS ELIDIA NOONAN [facility] Radiology Reports: +/- 30 days [...] the Encounter. The data comes from all [place] treatment facilities. Date/Time Radiology Report Provider Source Apr 14, 2024 01:58 PM US RENAL COMPLETE: JOVANA TRINIDAD [id number] -[id number] F Exm Date: APR 14, 2024@13:58 Req Phys: MAN ARREDONDO Pat Loc: [facility]-ST CLR PACT 2 PCP (Mckenzie'pasquale Fide Img Loc: [facility]-ULTRASOUND [facility] Service: Unknown [facility], [address] [place] [address] (Case [id number] COMPLETE) US RENAL COMPLETE (US Detailed) CPT:59560 Reason for Study: worsening kidney funcion Clinical History: Report Status: Verified Date Reported: APR 14, 2024 Date Verified: APR 14, 2024 Data Coordinator E-Sig:/ES/MARYANN HOPKINS Report: Case [id number]. US RENAL COMPLETE. TECHNIQUE: Realtime ultrasound examination [...] disease. Report dictated by Gera Yee (president & founder) I, Maryann Hopkins, have reviewed the images and report and concur with these findings. Primary Interpreting Staff: MARYANN HOPKINS MD (Data Coordinator) Primary Interpreting Resident: GERA YEE MD /MARYANN FLOREZ [facility] Mar 28, 2024 02:15 PM MRI SPINE THORACIC W/O CONT: JOVANA TRINIDAD BIRDIE [id number] -1955 F Exm Date: MAR 28, 2024@14:15 Req Phys: CLEMENT PAN Loc: 6-N SURG-[facility]/03-28-2024@15:52 Img Loc: [facility] Service: Unknown [facility], [facility] [address] [place] [address] (Case [id number] COMPLETE) MRI SPINE THORACIC W/O CONT (MRI Detailed) CPT:36534 Reason for Study: spastic gait, rule out [...] Responsible Attending: clement pan Attending Contact Number: [phone] Resident Contact Number: Does your patient have [...] 28, 2024 Date Verified: MAR 28, 2024 Data Coordinator E-Sig:/ES/Alexis Gallo MD. FACR. Report: History: spastic [...] Interpreting Staff: Alexis Gallo MD. FACR, Neuroradiologist (Data Coordinator) /[facility] Mar 28, 2024 02:12 PM MRI SPINE CERVICAL W/O CONT: JOVANA TRINIDAD [id number] -[id number] F Exm Date: MAR 28, 2024@14:12 Req Phys: CLEMENT PAN Loc: 6-N SURG-[facility]/03-28-2024@15:46 Img Loc: [facility] Service: [facility], [facility] [address] [place] [address] (Case [id number] COMPLETE) MRI SPINE CERVICAL W/O CONT (MRI Detailed) CPT:79866 Reason for Study: spastic gait, rule out [...] 28, 2024 Date Verified: MAR 28, 2024 Data Coordinator E-Sig:/ES/Alexis Gallo MD. FACR. Report: History: spastic [...] Interpreting Staff: Alexis Gallo MD. FACR, Neuroradiologist (Data Coordinator) /[facility] Mar 28, 2024 02:11 PM MRI BRAIN W/O CONT : JOVANA RTINIDAD BIRDIE [id number] -1955 F Exm Date: MAR 28, 2024@14:11 Req Phys: CLEMENT PAN Loc: [facility]-EMERGENCY DEPT 2ND SHIFT (R Img Loc: [facility] Service: [facility], [address] [place] [address] (Case [id number] COMPLETE) MRI BRAIN W/O CONT (MRI Detailed) CPT:32658 Reason for Study: cognitive decline ? vascular dementia Clinical History: Responsible Attending: clement pan Attending Contact Number: [phone] Resident Contact Number: Does your patient have [...] 28, 2024 Date Verified: MAR 28, 2024 Data Coordinator E-Sig:/ES/Alexis Gallo MD. FACR. Report: History: cognitive [...] Interpreting Staff: Alexis Gallo MD. FACR, Neuroradiologist (Data Coordinator) /[facility] Mar 22, 2024 05:56 PM CHEST PORTABLE: JOVANA TRINIDAD BIRDIE [id number] -[id number] F Exm Date: MAR 22, 2024@17:56 Req Phys: MAN ARREDONDO Loc: [facility] PACT 2 PCP (Mckenzie'pasquale Elizalde Img Loc: OUTSIDE -GENERAL RAD Service: Unknown Screen: Patient is unable to answer or is unsure Screen Comment: OUTSIDE STUDY (Case [id number] COMPLETE) CHEST PORTABLE (RAD Detailed) CPT:73971 Reason for Study: Exam imported from outside [...] study. VERIFIED BY: / *ELECTRONICALLY FILED* [facility] Encounter Notes: All associated encounter notes This section contains the clinical notes associated to the Encounter. Date/Time Encounter Note(s) Provider Source Mar 22, 2024 11:22 AM NONVA NOTE: LOCAL TITLE: [facility]ER SELF PRESENTING CARE COORD PLAN STANDARD TITLE: NONVA NOTE DATE OF NOTE: MAR 22, 2024@11:22 ENTRY DATE: MAR 27, 2024@11:22:30 AUTHOR: AVIVA RUIZ EXP COSIGNER: URGENCY: STATUS: COMPLETED COMMUNITY CARE-PETER SELF PRESENTING CARE COORD PLAN 657 STL Has ADDENDA Emergency Notification Intake Date Presenting to the Facility: Mar Method of Contact: Submitted to Centralized Call Center Notification ID: [id number] [facility] Referral #: [id number] Clinical Review [facility] Name: Hospital: [facility] Address: City: [place] State: [place] Zip Code: Phone : Community Facility Point of Contact: Name: Phone: Chief complaint: COULD NOT TALK RIGHT, HARD TIME BREATHING, GETTING DIZZY WHEN STANDING UP, weakness Primary Diagnosis: Disposition Discharged Date of discharge: Mar Discharge to home [place] records sent securely to [place] PCP and RNCM. Records sent to [facility] for expedited upload. [facility] alerted via [employer] for eligibility review. No further records available. Alerting PCP team to this note for continuity of care. /sandra/ AVIVA RUIZ BSN RN REGISTERED NURSE Signed: 03/27/2024 11:25 03/27/2024 ADDENDUM STATUS: COMPLETED records received via fax. has already reviewed /sandra/ NATALIE GUADALUPE MSN RN REGISTERED NURSE Signed: 03/27/2024 11:39 AVIVA RUIZ [facility]
[2024-11-30 14:53] VITALS: BP 130/75; PULSE 64; RESP 18; TEMP 36.4; O2SAT 99
--- OUTSIDE RECORDS SUMMARY | 2024-11-30 14:53 | XMS_ITS | Encounter Summary ---
Author Name [facility] [facility] [place] Address [address] [place] [address] Care Team Providers Care General Utility Maintenance Repairer Name Role Phone MARIA ELENA SHAHIDA Primary [...] PRESCRIPT ION NONE Mar 16, 2006 NONE [id number] [phone] [place] PATIENT [facility] PREFERRED PROVIDER ORGANIZAT ION (PPO) DEPAR TMENT OF DEFEN S Mar 16, 2006 [id number] [phone] [place],DE BRA PATIENT MEDICARE (WNR) MEDICARE (M) PART A Nov 14, 2020 PART A [id number] [phone] [place],DE BRA PATIENT MEDICARE (WNR) MEDICARE (M) PART B Nov 14, 2020 PART B [id number] MALAVE PATIENT Selected Encounter This section includes the information on record at [place] for the Encounter. Date/Time Encounter Type Encounter Description Reason Provider Source Oct 21, 2024 11:30 AM OFFICE O/P EST MOD 30 MIN PRIMARY CARE/MEDICINE ICD-10-CM N18.4 Chronic kidney disease, stage 4 (severe) SHAHIDA ARREDONDO [facility] Encounter Template Text not used by [place] Assessments - Encounter Diagnoses This section includes the primary and secondary diagnoses documented for the Encounter. Date/Time Primary/Secondary Diagnosis Diagnosis Name Provider Source Oct 21, 2024 01:22 PM PRIMARY Chronic kidney disease, stage 4 (severe) SHAHIDA ARREDONDO [facility] Oct 21, 2024 01:22 PM SECONDARY Essential (primary) hypertension SHAHIDA ARREDONDO [facility] Oct 21, 2024 01:22 PM SECONDARY Hyperparathyroidism , unspecified SHAHIDA ARREDONDO [facility] Oct 21, 2024 01:22 PM SECONDARY Pain in left shoulder SHAHIDA ARREDONDO [facility] Plan of Treatment: Future Appointments (+ 6 months) and Future Tests (+/- 45 days) The Plan of Treatment section includes future care activities for the patient [facility] [place] [facility] This section includes future appointments and future orders which are active, pending or scheduled. Future Appointments This section includes appointments that were scheduled to occur 6 months from the date of the Encounter, up to a maximum of 20 appointments. The data comes from all [place] treatment facilities. Appointment Date/Time Appointment Type Appointme nt Facility Name Oct 28, 2024 01:45 PM AMBULATORY - MEDICINE [facility] Oct 29, 2024 01:30 PM AMBULATORY - NONE [facility] Oct 29, 2024 02:00 PM AMBULATORY - NONE [facility] Nov 26, 2024 11:00 AM AMBULATORY - MEDICINE [facility] Nov 28, 2024 09:00 AM AMBULATORY - NONE [facility] Nov 28, 2024 10:00 AM AMBULATORY - NONE [facility] S [facility] Dec 24, 2024 09:30 AM AMBULATORY - NONE [facility] Dec 25, 2024 11:00 AM AMBULATORY - RE[facility] Jan 27, 2025 01:30 PM AMBULATORY - SURGERY . L DANIELA [facility] Feb 04, 2025 10:30 AM AMBULATORY - NONE . FARAZ Jordan [facility] Feb 04, 2025 12:30 PM AMBULATORY - MEDICINE [facility] Mar 23, 2025 11:20 AM AMBULATORY - MEDICINE [facility] Apr 23, 2025 11:30 AM AMBULATORY - MEDICINE [facility] Active, Pending, and Scheduled Orders This section includes a listing of several types of active, pending, and scheduled orders, including clinic medications orders, diagnostic test orders, procedure orders and consult orders; where the start date of the order is 45 days before the date of the Encounter or 45 days after the date of theEncounter. The data comes from all [place] treatment facilities. Test Date/Time Test Type Test Details Facility Name Oct 21, 2024 12:25 PM Consult Order PT OUTPT S T [facility] Cons Senior Reservoir Engineer's Choice [facility] Lab Results: +/- 30 days of the encounter This section includes the Chemistry and Hematology Lab Results on record with [place] for the patient. Radiology Reports and Pathology Reports are provided separately, in subsequent sections. Lab Results This section contains the Chemistry/Hematology Results that were resulted 30 days before or 30 daysafter the date of the Encounter. Date/Time Source Result Type Result - Unit Interpretation Reference Range Specimen Type Comment Oct 28, 2024 12:12 PM [facility] COMPREHENSIVE METABOLIC PANEL PLASMA Specimen Type: PLASMA Comment: No hemolysis noted. Ordering Provider: SHAHIDA ARREDONDO Report Released Date/Time: Oct 21, 2024 12:25 PM Reporting Lab: [facility] [address] [facility] [id number] Performing Lab: [facility] [address] [facility] [id number] CREATININE 2.53 mg/dL H 0.6-1.1 UREA NITROGEN [...] Pain Height Weight Body Mass Index Source Oct 21, 2024 11:32 AM 97.4 F 60 /min 135/76 mm[Hg] 18 /min 96 % 0 131.8 lb 23 [facility] Social History: Smoking Status (Most current) and Tobacco Use (All prior to encounter date) This section includes the most current, and the historical, smoking and tobacco- related health factors from the [place] facility where the Encounter took place. Current Smoking Status This section includes the most current smoking, or tobacco-related health factor, from the [place] facility where the Encounter took place. Date/Time Current Smoking Status Comment Facil ity Jul 21, 2022 10:30 AM VA-TOBACCO FORMER USER [facility] Tobacco Use History This section includes a history of the smoking, or tobacco-related health factors, that were collected on or before the date of the Encounter. The data comes from the [place] facility where the Encounter took place. Date/Time Smoking Status/Tobacco Use Comment F acility Jul 21, 2022 10:30 AM VA-TOBACCO QUIT 15 YRS OR MORE . [facility] Jul 01, 2021 10:30 AM VA-TOBACCO FORMER USER [facility] Jul 01, 2021 10:30 AM VA-TOBACCO QUIT 15 YRS OR MORE [facility] Feb 18, 2019 03:31 PM VA-TOBACCO FORMER USER [facility] Feb 18, 2019 03:31 PM VA-TOBACCO QUIT 15 YRS OR MORE [facility] August 27, 2017 04:45 PM VA-TOBACCO FORMER USER [facility] August 27, 2017 04:45 PM VA-TOBACCO QUIT 15 YRS OR MORE [facility] August 27, 2017 02:40 PM QUIT TOBACCO >7 YEARS AGO [facility] Feb 26, 2017 02:46 PM QUIT TOBACCO >7 YEARS AGO [facility] Jun 13, 2016 08:55 AM LIFETIME NON-USER OF TOBACCO [facility] Feb 16, 2015 10:29 AM QUIT TOBACCO >7 YEARS AGO [facility] Mar 19, 2014 10:05 AM QUIT TOBACCO >7 YEARS AGO [facility] Sep 23, 2012 09:28 AM QUIT TOBACCO >7 YEARS AGO [facility] Advance Directives: All historical and current Section Date Range: From patient's date of to the date document was created. This section includes ALL of a patient's completed or amended [place] Advance and Rescinded Directives. The entries below indicate that a directive exists for the patient, but an actual copy is not included with this document. The data comes from all [place] facilities. Date Advance Directives Provider Source Nov 18, 2021 STATE-AUTHORIZED POR TABLE ORDERS ELIDIA NOONAN [facility] Radiology Reports: +/- 30 days of [...] the Encounter. The data comes from all [place] treatment facilities. Date/Time Radiology Report Provider Source Oct 28, 2024 12:17 PM SHOULDER,LEFT,2 OR MORE VIEWS: TRINIDADHALI BIRDIE [id number] -[id number] F Exm Date: OCT 28, 2024@12:17 Req Phys: SHAHIDA ARREDONDO Loc: -[facility] PACT 2 PCP (Req'g Fide Img Loc: -MAIN RADIOLOGY SUITE Service: [facility], [facility] [address] [place] [address] (Case [id number] COMPLETE) SHOULDER,LEFT,2 OR MORE VIEWS (RAD Detailed) CPT:53245 Proc Modifiers : LEFT Reason for Study: left shoulder pain Clinical History: Report Status: Verified Date Reported: OCT 31, 2024 Date Verified: OCT 31, 2024 Intelligence Research Specialist E-Sig:/ES/MARYANN WAKEFIELD Report: Case [id number]. SHOULDER,LEFT,2 OR MORE VIEWS. Comparison: 08/15/2023 Findings: Postoperative changes of reverse left shoulder arthroplasty are redemonstrated. The hardware appears intact without evidence of loosening. There is no evidence of fracture or dislocation. No bone destruction is present. Moderate acromioclavicular osteoarthritis is redemonstrated. The visible portions of the left lung are clear. Impression: No significant interval change. Primary Interpreting Staff: MARYANN WAKEFIELD MD (Intelligence Research Specialist) /MARYANN MCGUIRE [facility] Encounter Notes: All associated encounter notes This section contains the clinical notes associated to the Encounter. Date/Time Encounter Note(s) Provider Source Nov 28, 2024 12:20 PM [facility] OUTPATIENT LETTERS: LOCAL TITLE: [facility] MAMMOGRAPHY RESULT LETTER STL STANDARD TITLE: [facility] OUTPATIENT LETTERS DATE OF NOTE: NOV 28, 2024@12:20 ENTRY DATE: NOV 28, 2024@12:20:51 AUTHOR: SHAHIDA ARREDONDO EXP COSIGNER: URGENCY: STATUS: COMPLETED [facility] [address] [place] [address] NOV 28, 2024 HALI TRINIDAD [address] [place] [address] DR RONQUILLO [address] [place] [id number] Dear Hali Trinidad, You completed a bilateral screening mammogram on Nov. A mammogram is a low dose x-ray of the breast that can show changes in breast tissue. The [employer] established the Breast Imaging Reporting and Data System to better explain the results of your mammogram. Your Mammogram results were: BIRADS-1 (Negative), indicates there is no mammographic evidence of cancer or malignancy. You can repeat your mammogram in 2 years Sincerely, HALI TOVAR INGRID D [facility] Nov 28, 2024 12:19 PM [facility] NOTE: LOCAL TITLE: SMART BREAST IMAGING FOLLOW-UP STANDARD TITLE: [facility] NOTE DATE OF NOTE: NOV 28, 2024@12:19:37 ENTRY DATE: NOV 28, 2024@12:19:38 AUTHOR: SHAHIDA ARREDONDO EXP COSIGNER: URGENCY: STATUS: COMPLETED Image/report for review (Oldest to Most Recent) Procedure: MAMMOGRAM SCREENING Date of Procedure: Nov 28, 2024 Primary Result: BI-RADS CATEGORY 1 Radiology Case#: [id number] Provider: SHAHIDA ARREDONDO Prior Patient communication details: None on file Interpretation of results and decision making/patient notification Summary of results: BIRAD 1 Recommendations made/Next planned steps: Return for screening mammogram in two years Method patient contacted by: Non-Registered Letter Date: November 28, 2024 /ronald ARREDONDO Signed: 11/28/2024 12:20 SHAHIDA ARREDONDO [facility] Nov 03, 2024 08:25 AM ACCOUNTING OF DISCLOSURES NOTE: LOCAL TITLE: STATE PRESCRIPTION DRUG MONITORING PROGRAM STANDARD TITLE: ACCOUNTING OF DISCLOSURES NOTE DATE OF NOTE: NOV 03, 2024@08:25:33 ENTRY DATE: NOV 03, 2024@08:25:33 AUTHOR: SHAHIDA ARREDONDO EXP COSIGNER: URGENCY: STATUS: COMPLETED This PDMP query was submitted by Shahida Arredondo MD. The clinical justification for this PDMP query is to review controlled substances prescribed outside of the [place], and any additional information that may become available, as an important component of standard clinical care, and in accordance with [facility] policy. Patient information was shared with the PDMP Appriss Arrington. No prescription(s) for controlled substances outside the [facility] were found in the last 90 days. /ronald ARREDONDO Signed: 11/03/2024 08:25 SHAHIDA ARREDONDO [facility] Oct 31, 2024 11:10 AM PHYSICIAN LETTERS: LOCAL TITLE: TEST RESULT GENERAL LETTER STL STANDARD TITLE: PHYSICIAN LETTERS DATE OF NOTE: OCT 31, 2024@11:10 ENTRY DATE: OCT 31, 2024@11:10:20 AUTHOR: SHAHIDA ARREDONDO EXP COSIGNER: URGENCY: STATUS: COMPLETED [facility] [address] [place] [address] OCT 31, 2024 HALI TRINIDAD [address] [address] RONQUILLO [address] [place] [phone] Dear Hali Trinidad, I would like to update you on your recent test results. OTHER TEST RESULTS RADIOLOGY (NON-INVASIVE TEST RESULTS): Your SHOULDER,LEFT,2 OR MORE VIEWS Exm Date: OCT 28, 2024@12:17 Req Phys: SHAHIDA ARREDONDO Pat Loc: [facility]-ST CLR PACT 2 PCP (Mckenzie'pasquale Elizalde Img Loc: [facility]-MAIN RADIOLOGY SUITE Service: Unknown Impression: No significant interval change. I have referred you to our inventional radiologist to do an injection in your left shoulder FUTURE APPOINTMENTS: 11/26/2024 11:00 [facility]RENAL NP2 11/28/2024 10:00 [facility]MAMM AM 12/24/2024 09:30 [facility]-DENTAL DDS2 PROC 12/25/2024 11:00 [facility]-ST CLR PHYSICAL THERAP 01/27/2025 13:30 [facility]-OPTOMETRY 5 02/04/2025 10:30 [facility]-DENTAL DDS2 PROC 03/23/2025 11:20 [facility]RENAL RAUCHMAN 04/23/2025 11:30 [facility]-ST CLR PACT 2 PCP 05/29/2025 10:00 [facility]-DENTAL HYG 3 07/30/2025 11:00 [facility]-GI ELWING 10/05/2025 11:20 [facility]-UROLOGY MD RES Sincerely, HALI TOVAR INGRID D Melanie [facility] Oct 28, 2024 02:34 PM PHYSICIAN LETTERS: LOCAL TITLE: TEST RESULT GENERAL LETTER STL STANDARD TITLE: PHYSICIAN LETTERS DATE OF NOTE: OCT 28, 2024@14:34 ENTRY DATE: OCT 28, 2024@14:34:26 AUTHOR: SHAHIDA ARREDONDO EXP COSIGNER: URGENCY: STATUS: COMPLETED [facility] [address] [place] [address] OCT 28, 2024 HALI TRINIDAD [address] RONQUILLO [address] [place] [phone] Dear Hali Trinidad, I would like to update you on your recent test results. CHEM 7 - This is important information about the current status of your kidneys, liver, and electrolyte and acid/base balance as well as of your blood sugar and blood proteins. SODIUM 141 mEq/L 10/28/2024 12:12 POTASSIUM 4.2 mEq/L 10/28/2024 12:12 CHLORIDE 107 mEq/L 10/28/2024 12:12 UREA NITROGEN 41.9 H mg/dL 10/28/2024 12:12 CREATININE 2.53 H mg/dL 10/28/2024 12:12 CALCIUM 8.1 L mg/dL 10/28/2024 12:12 CARBON DIOXIDE 21 L mEq/L 10/28/2024 12:12 GLUCOSE 71 L mg/dL 10/28/2024 12:12 EGFR (CKD-EPI 2020) 20.2 10/28/2024 12:12 The results are similar to previous values and not a clinical concern. Please keep your follow up appointment with the renal doctor LIVER FUNCTION PANEL - These are tests for liver function: PROTEIN 7.2 g/dL 10/28/2024 12:12 ALBUMIN 4.3 g/dL 10/28/2024 12:12 TOTAL BILIRUBIN 0.2 mg/dL 10/28/2024 12:12 ALKALINE PHOSPHATASE 41 U/L 10/28/2024 12:12 AST/SGOT 19 U/L 10/28/2024 12:12 ALT/SGPT 10 U/L 10/28/2024 12:12 These readings are within normal limits. FUTURE APPOINTMENTS: 10/29/2024 14:00 [facility]DENTAL HYG 3 11/26/2024 11:00 [facility]RENAL NP2 11/28/2024 10:00 [facility]MAMM AM 12/24/2024 09:30 [facility]-DENTAL DDS2 PROC 12/25/2024 11:00 [facility]-ST CLR PHYSICAL THERAP 01/27/2025 13:30 [facility]-OPTOMETRY 5 02/04/2025 10:30 [facility]-DENTAL DDS2 PROC 03/23/2025 11:20 [facility]RENAL RAUCHMAN 04/23/2025 11:30 [facility]-ST CLR PACT 2 PCP 07/30/2025 11:00 [facility]-GI ELWING 10/05/2025 11:20 [facility]UROLOGY MD RES Sincerely, HALI TOVAR INGRID D [facility] Oct 21, 2024 12:14 PM PRIMARY CARE NOTE: LOCAL TITLE: PRIMARY CARE PROVIDER ESTABLISHED VISIT ST STANDARD TITLE: PRIMARY CARE NOTE DATE OF NOTE: OCT 21, 2024@12:14 ENTRY DATE: OCT 21, 2024@12:14:07 AUTHOR: SHAHIDA ARREDONDO EXP COSIGNER: URGENCY: STATUS: COMPLETED Patient is 68 and WHITE Self Identified Gender - Woman Reason for visit: Chief Complaint: f/u History of Present Illness: Patient with Hyperparathyroidism-due to CKD presents for follow up . Note left shoulder pain . She has FROM of her left shoulder . No longer has recurrent uti with the use of estogen tablets . 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 (SNOMED CT 286746088766329) 6) Depressive Disorder NOS * (ICD-9-CM 311./300.4) 7) Gynecologic Exam 8) OA - Osteoarthritis (SNOMED CT 878903488) 9) Skin tag (SNOMED CT 775412133) 10) Nonvenomous insect bite (SNOMED CT 407395237) 11) Foot callus (SNOMED CT 149578499) 12) Verruca plantaris (SNOMED CT 20772873) 13) Edema (SNOMED CT 638517778) 14) Cramp (SNOMED CT 61108971) 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 <C> COVID-19 (MODERNA), MRNA, LNP-S,* 4 09/19/2021 [facility] <C> COVID-19 (MODERNA), MRNA, LNP-S,* 3 03/01/2021 [facility] COVID-19 (MODERNA), MRNA, LNP-S,* 2 07/17/2020 [facility] <C> COVID-19 (MODERN), MRNA, LNP-S,* 1 06/19/2020 [facility] <C> COVID-19 (PFIZER), MRNA, LNP-S, * 03/25/2024 [facility] COVID-19 (PFIZER), MRNA, LNP-S, * [facility] HEP [facility], AD[facility] 3 07[facility] HE[facility], AD[facility] 2 02[facility]20/[facility] HEP B, ADULT 1 01/23/2020 [facility] INFLUENZA, ADJUVANTED, QUADRIVAL* 01/07/2021 [facility] INFLUENZA, HIGH-DOSE, QUADRIVALE* C 01/18/2023 [facility] INFLUENZA, HIGH-DOSE, TRIVALENT,* 03/25/2024 [facility] INFLUENZA, SPLIT VIRUS, QUADRIVA* 01/23/2020 [facility] INFLUENZA, SPLIT VIRUS, QUADRIVA* 04/14/2019 [facility] INFLUENZA, SPLIT VIRUS, QUADRIVA* 02/27/2018 [facility] INFLUENZA, SPLIT VIRUS, QUADRIVA* 02/26/2017 [facility] INFLUENZA, SPLIT VIRUS, TRIVALEN* 05/09/2016 [facility] <C> INFLUENZA, SPLIT VIRUS, TRIVALEN* 02/16/2015 [facility] INFLUENZA, SPLIT VIRUS, TRIVALEN* 02/27/2014 [facility] INFLUENZA, UNSPECIFIED FORMULATI* 02/18/2013 Done @ cl* INFLUENZA, UNSPECIFIED FORMULATI* 01/31/2012 [facility] INFLUENZA, UNSPECIFIED FORMULATI* 02/13/2011 [facility] INFLUENZA, UNSPECIFIED FORMULATI* 04/20/2010 [facility] INFLUENZA, UNSPECIFIED FORMULATI* 12/28/2008 [facility] NOVEL [id number], ALL FOR* [employer]* PNEUMOCOCCAL CONJUGATE PCV 13 08/23/2016 [facility] PNEUMOCOCCAL POLYSACCHARIDE PPV23 C 03/29/2023 [facility] PNEUMOCOCCAL POLYSACCHARIDE PPV23 02/26/2017 [facility]* TDAP 01/07/2021 [facility] TDAP 07/26/2009 [facility] <C> ZOSTER LIVE 10/03/2016 [facility] ZOSTER RECOMBINANT 2 07/21/2022 [facility]* <C> ZOSTER RECOMBINANT 1 02/10/2022 [facility] CONTRAINDICATED No data available REFUSED ======= Immunization Date Facility Info COVID-19 (MODERNA), MRNA, LNP-S,* 10/01/2023 [facility] <I> COVID-19 (PFIZER), MRNA, LNP-S, * 10/21/2024 [facility] <I> INFLUENZA, UNSPECIFIED FORMULATI* 07/21/2022 [facility] <C> PNEUMOCOCCAL POLYSACCHARIDE PPV23 07/21/2022 [facility] <I> <C> See the Detailed Immunizations Health Summary Component[DIM] for Comments <I> See the Detailed Immunizations Health Summary Component[DIM] for Additional Information * Value is truncated; see the Detailed Immunizations Health Summary Component[DIM] for complete text Medication Review: The essential med list for review which includes the patient's active VA prescriptions and if applicable, remote VA prescriptions, non-VA prescriptions, and discontinued VA prescriptions within the last 90 days and known allergies including local and remote allergies have been reviewed. Allergies:AMLODIPINE Active and Recently Outpatient Medications (excluding Supplies): Active Outpatient Medications Status 1) ALLOPURINOL [...] A ACTIVE DAY FOR IRON SUPPLEMENTATION. 11) LOPERAMIDE HCL 2MG CAP TAKE ONE CAPSULE BY MOUTH EVERY DAY ACTIVE NEEDED FOR DIARRHEA. 12) MELATONIN 3MG CAP/TAB TAKE TWO CAP/TAB BY MOUTH AT BEDTIME ACTIVE FOR SLEEP 13) MOXIFLOXACIN (EQV-VIGAMOX) 0.5% OPH SOLN INSTILL 1 DROP IN HOLD RIGHT EYE FOUR TIMES A DAY Indication: FOR BACTERIAL EYE INFECTION Inactive Outpatient Medications Status 1) TRAMADOL HCL 50MG TAB TAKE 1 TABLET BY MOUTH AT BEDTIME Indication: FOR PAIN Active Non-VA Medications Status 1) Non-VA FISH OIL 1000MG (500MG DHA/EPA) CAP 1000MG BY MOUTH ACTIVE TWICE A DAY 2) Non-VA MAGNESIUM OXIDE TAB 250MG BY MOUTH TWICE A DAY ACTIVE 16 Total Medications Physical Exam VITALS (most recent, as listed in the electronic record): B/P: 135/76 (10/21/2024 11:32) Pulse: 60 (10/21/2024 11:32) Temperature: 97.4 F [36.3 C] (10/21/2024 11:32) Weight: 131.8 lb [59.78 kg] (10/21/2024 11:32) Height: 64 in [162.6 cm] (10/06/2024 13:28) BMI: 22.7 Pain: 0 (10/21/2024 11:32) (0-10 scale) General: WD, WN in NAD, pleasant affect Skin: no lesions or rashes noted. HEENT: NC/AT, PERRL, EOMI, no scleral icterus, TMs intact, posterior pharynx is clear, no tonsillar adenopathy Neck: Supple, no cervical CHRISTOPHER, no thyromegaly or goiters palpated. Lungs: CTA bilat, no W/R/R Heart: RRR, nl S1/S2, no murmurs, no S3/S4 gallops. Abdomen: Soft, NT/ND. No HSM or masses palpated. Musculoskeletal: FROM of upper extremititie Back: Normal curvature and mobility. No CVA tenderness. Data Review: HGA1C 5.5 % 03/28/2024 18:11 Lipid Panel: TRIGLYCERIDE 109 mg/dL 10/29/2023 10:59 CHOLESTEROL 149 mg/dL 10/29/2023 10:59 HDL(New) 69 mg/dL 10/29/2023 10:59 CALCULATED LDL 58 mg/dL 10/29/2023 10:59 CMP: SODIUM 140 mEq/L 07/18/2024 11:46 POTASSIUM 4.5 mEq/L 07/18/2024 11:46 CHLORIDE 105 mEq/L 07/18/2024 11:46 UREA NITROGEN 41.7 H mg/dL 07/18/2024 11:46 CREATININE 2.24 H mg/dL 07/18/2024 11:46 CALCIUM 8.2 L mg/dL 07/18/2024 11:46 PROTEIN 7.6 g/dL 03/28/2024 18:11 ALBUMIN 4.5 g/dL 07/18/2024 11:46 ALKALINE PHOSPHATASE 68 U/L 03/28/2024 18:11 ALT/SGPT 10 U/L 03/28/2024 18:11 AST/SGOT 19 U/L 03/28/2024 18:11 TOTAL BILIRUBIN 0.4 mg/dL 03/28/2024 18:11 CARBON DIOXIDE 23 mEq/L 07/18/2024 11:46 GLUCOSE 89 mg/dL 07/18/2024 11:46 EGFR (CKD-EPI 2020) 23.3 07/18/2024 11:46 CBC: WBC 7.1 10*3/uL 07/18/2024 11:46 RBC [...] 11:10 ATYPICAL LYMPHOCYTES 5.5 % 03/28/2024 11:10 PSA: No PSA EO data found TSH: TSH 2.508 uIU/mL 03/28/2024 18:11 UA: URINE COLOR Yellow 06/13/2024 09:41 APPEARANCE Ex.Turbid 06/13/2024 09:41 U.PH 6.5 06/13/2024 09:41 U.BILIRUBIN Negative mg/dL 06/13/2024 09:41 U.NITRITE Negative mg/dL 06/13/2024 09:41 URINE RBC/HPF 32 H /HPF 06/13/2024 09:41 URINE WBC/HPF >182 H /HPF 06/13/2024 09:41 WBC Clumps MANY /HPF 06/13/2024 09:41 BACTERIA FEW /HPF 06/13/2024 09:41 SQUAMOUS EPITH. 4 /HPF 06/13/2024 09:41 HYALINE CASTS 9 /LPF 06/13/2024 09:41 Vitamin D: VITAMIN D, 25-HYDROXY 42.5 ng/mL 07/18/2024 11:46 Micral/Creat Profile: CREATuF: 15.6 (07/18/24 12:04) M/CREAT: 2183 (07/18/24 12:04) MICRAL: 340.6 (07/18/24 12:04) Result: Follow-up Action: Data results reviewed with patient and/or caregiver. Imaging: Assessment/Plan: 1 left shoulder pain - xray leftshoulder and refer for injection therapy and PT ordered lidocain patches 2 recurrent uti = resolved with vaginal estrogen tablets 3 hyperparathyroidism = stable 4 Cri - check cmp 5 htn= stable concurrentmeds 6 anxiety -stable -renwed wellbutrin 150m pobid RTC: 6 months CLINICAL REMINDERS COMPLETED /sandra/ SHAHIDA ARREDONDO Signed: 10/21/2024 13:22 SHAHIDA ARREDONDO [facility] Oct 21, 2024 11:35 AM NURSING NOTE: LOCAL TITLE: V15 PACT FACE TO FACE NOTE STL STANDARD TITLE: NURSING NOTE DATE OF NOTE: OCT 21, 2024@11:35 ENTRY DATE: OCT 21, 2024@11:35:47 AUTHOR: MORRO ROPER EXP COSIGNER: URGENCY: STATUS: COMPLETED Provider Visit: Patient Identifiers : Full Name Date of Reason for visit: Established Follow-Up Mode of Arrival: Ambulatory Allergy Review: AMLODIPINE DEC 24, 2012 (HISTORICAL) Symptoms: SWELLING Allergy list reviewed and remains current. Recent Vital Signs: Temperature: 97.4 F [36.3 C] (10/21/2024 11:32) Pulse: 60 (10/21/2024 11:32) Respiration: 18 (10/21/2024 11:32) B/P: 135/76 (10/21/2024 11:32) Pain: 0 (10/21/2024 11:32) Wt: 131.8 lb [59.78 kg] (10/21/2024 11:32) Ht: 64 in [162.6 cm] (10/06/2024 13:28) BMI: 22.7 POX: 96% (10/21/2024 11:32) PERSONAL HEALTH INVENTORY Notes: No data available for PHI note titles PERSONAL HEALTH INVENTORY - MAP: 03/25/2024 Personal Health Plan [place], [place], Purpose (MAP) MY GRANDDAUGHTER What matters most to you in your life right now? Terry's Response: MY NEW GRANDBABY Would you like to discuss any personal problem, family problem, alcohol use, drug use, or a mental or emotional illness? No My [facility] ([facility]), please select appointment type: Face to face: Yes-Do you have an upgraded (Premium) account which gives you the added benefit of Secure Messaging with your Primary Care Provider and refilling your prescriptions online? Yes- Done Contact provided Primary Care phone number and encouraged to call if any questions or concerns. Review that after hours nurse line [phone] and emergency room are available 06/11 for patient use. Contact verbalized good understanding. Depression Screening - V: Perform PHQ-2 A PHQ-2 screen was performed. The score was 0 which is a negative screen for depression. Over the past two weeks, how often have you been bothered by the following problems? 1. Little interest or pleasure in doing things Not at all 2. Feeling down, depressed, or hopeless Not at all COVID-19 Immunization-L,N,P,PH,U: Refused Pfizer Monovalent COVID-19 vaccine Immunization: COVID-19 (PFIZER), MRNA, LNP-S, PF, PATTIE-SUCROSE, 30 MCG/0.3 ML (AGES 12+ YEARS) Refusal Reason: PATIENT DECISION Patient refuses all immunization(s) in the COVID-19 group Date Documented: 10/21/24 11:38 /sandra/ MORRO ROPER LICENSED PRACTICAL NURSE Signed: 10/21/2024 11:38 MORRO ROPER [facility]
--- OUTSIDE RECORDS SUMMARY | 2024-11-30 14:53 | XMS_ITS | Encounter Summary ---
Author Name [facility] Address [address] [place] [address] Care Team Providers Care Morning News Producer Name Role Phone MARIA ELENACAMERONID Primary Care [...] PRESCRIPT ION NONE Mar 16, 2006 NONE [id number] [place] PATIENT AETNA [facility] PREFERRED PROVIDER ORGANIZAT ION (PPO) DEPAR TMENT OF DEFEN S Mar 16, 2006 [id number] [place] PATIENT MEDICARE (WNR) MEDICARE (M) PART B Nov 14, 2020 PART B [id number] [phone] SHELBY BRA PATIENT MEDICARE (WNR) MEDICARE (M) PART A Nov 14, 2020 PART A [id number] MALAVE PATIENT Selected Encounter This section includes the information on record at [place] for the Encounter. Date/Time Encounter Type Encounter Description Reason Provider Source Jan 30, 2024 11:35 AM OFFICE O/P EST MOD 30 MIN NON-OR ANESTHESIA PROCEDURES ICD-10-CM Z01.818 Encounter for other preprocedural examination DMITRIY GONZALEZ IHE Encounter Template Text not used by [place] Assessments - Encounter Diagnoses This section includes the primary and secondary diagnoses documented for the Encounter. Date/Time Primary/Secondary Diagnosis Diagnosis Name Provider Source Jan 30, 2024 11:43 AM PRIMARY Encounter for other preprocedural examination MATT GONZALEZ [facility] Jan 30, 2024 11:43 AM SECONDARY Encounter for other specified surgical aftercare MATT GONZALEZ [facility] Plan of Treatment: Future Appointments (+ 6 months) and Future Tests (+/- 45 days) The Plan of Treatment section includes future care activities for the patient from all [place] treatmentfacilities. This section includes future appointments and future orders which are active, pending or scheduled. Future Appointments This section includes appointments that were scheduled to occur 6 months from the date of the Encounter, up to a maximum of 20 appointments. The data comes from all [place] treatment facilities. Appointment Date/Time Appointment Type Appointme nt Facility Name Mar 25, 2024 10:30 AM AMBULATORY - MEDICINE . [facility] Mar 27, 2024 01:00 PM AMBULATORY - NEUROLOGY [facility] Mar 28, 2024 10:49 AM AMBULATORY - MEDICINE [facility] Apr 02, 2024 10:00 AM AMBULATORY - MEDICINE . [facility] Apr 14, 2024 02:30 PM AMBULATORY - MEDICINE [facility] Apr 30, 2024 02:00 PM AMBULATORY - NONE [facility] May 06, 2024 10:30 AM AMBULATORY - NONE [facility] May 30, 2024 10:00 AM AMBULATORY - MEDICINE [facility] May 30, 2024 01:30 PM AMBULATORY - NONE [facility] Jun 13, 2024 09:00 AM AMBULATORY - SURGERY [facility] Jun 20, 2024 11:00 AM AMBULATORY - SURGERY . Fabián SUAREZ [facility] Jul 09, 2024 01:00 PM AMBULATORY - SURGERY [facility]. Fabián SUAREZ [facility] Jul 18, 2024 11:40 AM AMBULATORY - MEDICINE [facility] Jul 29, 2024 12:00 PM AMBULATORY - NONE Melanie Jordan [facility] Active, Pending, and Scheduled Orders This section includes a listing of several types of active, pending, and scheduled orders, including clinic medications orders, diagnostic test orders, procedure orders and consult orders; where the start date of the order is 45 days before the date of the Encounter or 45 days after the date of theEncounter. The data comes from all [place] treatment facilities. Test Date/Time Test Type Test Details Facility Name Jan 02, 2024 12:00 AM Laboratory - Chemi stry Order RENAL PANEL GREEN LI/HEP BLD/PLAS PLASMA SP [facility] Social History: Smoking Status (Most current) and Tobacco Use (All prior to encounter date) This section includes the most current, and the historical, smoking and tobacco- related health factors from the [place] facility where the Encounter took place. Current Smoking Status This section includes the most current smoking, or tobacco-related health factor, from the [place] facility where the Encounter took place. Date/Time Current Smoking Status Comment Facil ity Sep 24, 2023 01:20 PM VA-TOBACCO FORMER USER [facility] Tobacco Use History This section includes a history of the smoking, or tobacco-related health factors, that were collected on or before the date of the Encounter. The data comes from the [place] facility where the Encounter took place. Date/Time Smoking Status/Tobacco Use Comment F acvance Sep 24, 2023 01:20 PM VA-TOBACCO QUIT 15 YRS OR MORE [facility] Apr 06, 2021 07:54 PM ORYX ADMIT TOBACCO SCREEN NO [facility] Jul 26, 2020 09:33 AM VA-TOBACCO FORMER USER [facility] Jul 26, 2020 09:33 AM VA-TOBACCO QUIT 15 YRS OR MORE [facility] Aug 13, 2019 05:31 PM ORYX ADMIT TOBACCO SCREEN NO [facility] Nov 26, 2008 11:49 AM QUIT TOBACCO >7 YEARS AGO [facility] Advance Directives: All historical and current Section Date Range: From patient's date of to the date document was created. This section includes ALL of a patient's completed or amended [place] Advance and Rescinded Directives. The entries below indicate that a directive exists for the patient, but an actual copy is not included with this document. The data comes from all [place] facilities. Date Advance Directives Provider Source Nov 18, 2021 STATE-AUTHORIZED POR TABLE ORDERS ELIDIA NOONAN [facility] Radiology Reports: +/- 30 days of [...] the Encounter. The data comes from all [place] treatment facilities. Date/Time Radiology Report Provider Source Feb 25, 2024 01:25 PM NM BONE IMAGING, W HOLE BODY: JOVANA TRINIDAD BIRDIE [id number] -1955 F Exm Date: FEB 25, 2024@13:25 Req Phys: SHAHIDA ARREDONDO Loc: [facility] PACT 2 PCP (Req'g Lo Img Loc: OUTSIDE -NUCLEAR MED Service: Unknown Screen: Patient is unable to answer or is unsure Screen Comment: OUTSIDE STUDY (Case [id number] COMPLETE) NM BONE IMAGING, WHOLE BODY (NM Detailed) CPT:30744 Reason for Study: Exam imported from outside Clinical History: Original Data for Imported Study Patient Name: JOVANA TRINIDAD Date: 1955 Sex: F Study Date: 02/25/24 Study Time: 01:25:43 Study Description: NM bone scan whole body Referring Physician: SRINIVAS MCFARLAND Series 1: 1 SR file, description: OpenSearchServerQuinn Basic Text SR for HL7 Radiological Report Series 2: 1 NM file, description: ScreenCap (Whole Body Review with Du...)01 Series 3: 1 NM file, description: ScreenCap (Spot Views) Report Status: Electronically Filed Date Reported: APR 15, 2024 Report: Electronically generated report for outside study. Impression: Electronically generated report for outside study. VERIFIED BY: / *ELECTRONICALLY FILED* [facility] Feb 23, 2024 06:[address] ABDOMEN AND PEL VIS W/O CONTRAST: JOVANA TRINIDAD BIRDIE [id number] -1955 F Exm Date: FEB 23, 2024@18:26 Req Phys: SHAHIDA ARREDONDO Pat Loc: - CLR PACT 2 PCP (Mckenzie'g Lo Img Loc: OUTSIDE [facility] Service: Unknown Screen: Patient is unable to answer or is unsure Screen Comment: OUTSIDE STUDY (Case [id number] COMPLETE) CT ABDOMEN AND PELVIS W/O CONTRAS(CT Detailed) CPT:85738 Reason for Study: Exam imported from outside [...] Report Series 4: 2 CT files, description: Mud Plant Operator Series 5: 53 CT files, description: [...] BY: / *ELECTRONICALLY FILED* [facility] Feb 23, 2024 03:[address] LUMBAR SPINE W/ O CONT: JOVANA TRINIDAD BIRDIE [id number] -1955 F Exm Date: FEB 23, 2024@15:20 Req Phys: SHAHIDA ARREDONDO Pat Loc: - CLR PACT 2 PCP (Req'g Lo Img Loc: OUTSIDE [facility] Service: Unknown Screen: Patient is unable to answer or is unsure Screen Comment: OUTSIDE STUDY (Case [id number] COMPLETE) CT LUMBAR SPINE W/O CONT (CT Detailed) CPT:53485 Reason for Study: Exam imported from outside [...] Report Series 4: 2 CT files, description: Mud Plant Operator Series 5: 111 CT files, description: [...] BY: / *ELECTRONICALLY FILED* [facility] Feb 23, 2024 03:[address] CERVICAL SPINE W/O CONT: JOVANA TRINIDAD BIRDIE [id number] -1955 F Exm Date: FEB 23, 2024@15:18 Req Phys: SHAHIDA ARREDONDO Pat Loc: [facility] PACT 2 PCP (Req'g Lo Img Loc: OUTSIDE [facility] Service: Unknown Screen: Patient is unable to answer or is unsure Screen Comment: OUTSIDE STUDY (Case 1156 COMPLETE) CT CERVICAL SPINE W/O CONT (CT Detailed) CPT:99358 Reason for Study: Exam imported from outside Clinical History: Original Data for Imported Study Patient Name: JOVANA TRINIDAD Date: 1955 Sex: F Study Date: 02/23/24 Study Time: 03:18:11 Study Description: CT cervical spine wo con Referring Physician: SRINIVAS MCFARLAND Series 1: 1 CT file, description: CT cervical spine wo con Series 2: 1 SR file, description: Visual Pro 360 Basic Text SR for HL7 Radiological Report Series 3: 2 CT files, description: Mud Plant Operator Series 4: 1 CT file, description: [...] outside study. VERIFIED BY: / *ELECTRONICALLY FILED* Melanie SARBJIT [facility] Feb 23, 2024 03:[address] HEAD W/O CONT: JOVANA TRINIDAD BIRDIE [id number] -1955 F Exm Date: FEB 23, 2024@15:14 Req Phys: SHAHIDA ARREDONDO Loc: [facility] PACT 2 PCP (Req'g Lo Img Loc: OUTSIDE [facility] Service: Unknown Screen: Patient is unable to answer or is unsure Screen Comment: OUTSIDE STUDY (Case 911 COMPLETE) CT HEAD W/O CONT (CT Detailed) CPT:58590 Reason for Study: Exam imported from outside Clinical History: Original Data for Imported Study Patient Name: JOVANA TRINIDAD Date: 1955 Sex: F Study Date: 02/23/24 Study Time: 03:14:49 Study Description: CT brain wo con Referring Physician: SRINIVAS MCFARLAND Series 1: 1 CT file, description: CT brain wo con Series 2: 1 SR file, description: Stratio Technology Text SR for HL7 Radiological Report Series 3: 1 CT file, description: Dose Report Series 4: 1 CT file, description: Mud Plant Operator Series 5: 64 CT files, description: [...] *ELECTRONICALLY FILED* [facility] Feb 23, 2024 03:06 PM HIP, UNILAT, 2-3 V IEWS RIGHT W OR W/O PELVIS: JOVANA TRINIDAD BIRDIE [id number] -1955 F Exm Date: FEB 23, 2024@15:06 Req Phys: SHAHIDA ARREDONDO Loc: [facility] PACT 2 PCP (Req'g Lo Img Loc: OUTSIDE -GENERAL RAD Service: Unknown Screen: Patient is unable to answer or is unsure Screen Comment: OUTSIDE STUDY (Case 1164 COMPLETE) HIP, UNILAT, 2-3 VIEWS RIGHT W OR(RAD Detailed) CPT:70328 Reason for Study: Exam imported from outside Clinical History: Original Data for Imported Study Patient Name: JOVANA TRINIDAD Date: 1955 Sex: F Study Date: 02/23/24 Study Time: ::11 Study Description: XR hip RT 2V w [...] *ELECTRONICALLY FILED* [facility] Feb 23, 2024 03:05 PM CHEST X-RAY, 2 VIE WS: JOVANA TRINIDAD BIRDIE [id number] -1955 F Exm Date: FEB 23, 2024@15:05 Req Phys: SHAHIDA ARREDONDO Pat Loc: - CLR PACT 2 PCP (Req'g Lo Img Loc: OUTSIDE -GENERAL RAD Service: Unknown Screen: Patient is unable to answer or is unsure Screen Comment: OUTSIDE STUDY (Case 1163 COMPLETE) CHEST X-RAY, 2 VIEWS (RAD Detailed) CPT:95272 Reason for Study: Exam imported from outside Clinical History: Original Data for Imported Study Patient Name: JOVANA TRINIDAD Date: 1955 Sex: F Study Date: 02/23/24 Study Time: ::11 Study Description: XR chest 2V Referring Physician: [...] *ELECTRONICALLY FILED* [facility] Pathology Reports: +/- 30 [...] the Encounter. The data comes from all [place] treatment facilities. Date/Time Pathology Report Provider Source Jan 31, 2024 01:43 PM LR SURGICAL PATHOL OGY REPORT: LOCAL TITLE: LR SURGICAL PATHOLOGY REPORT STANDARD TITLE: PATHOLOGY PROCEDURE NOTE DATE OF NOTE: JAN 31, 2024@13:43:06 ENTRY DATE: JAN 31, 2024@13:43:06 AUTHOR: [place] EXP COSIGNER: URGENCY: STATUS: COMPLETED $APHDR - - - [...] Performing Laboratory: Surgical Pathology Report Performed By: [facility]# [id number] [address] [place] [phone] $FTR - - - - - - [...] - - JOVANA TRINIDAD STANDARD FORM 515 ID:[id number] SEX:F :1955 AGE: 68 LOC:GILABA2 PCP: Shahida Arredondo MD /sandra/ [place] PATHOLOGIST Signed: 01/31/2024 13:43 [place] [facility] Encounter Notes: All associated encounter notes This section contains the clinical notes associated to the Encounter. Date/Time Encounter Note(s) Provider Source Jan 30, 2024 11:49 AM ANESTHESIOLOGY POS T OPERATIVE E & M NOTE: LOCAL TITLE: ANESTHESIA POST-OP ST STANDARD TITLE: ANESTHESIOLOGY POST OPERATIVE E & M NOTE DATE OF NOTE: JAN 30, 2024@11:49 ENTRY DATE: JAN 30, 2024@11:49:20 AUTHOR: AMTT GONZALEZ EXP COSIGNER: URGENCY: STATUS: COMPLETED Post-Anesthesia Note No anesthestic complications noted at time of this note's filing. Anesthesia Intra-Op Flowsheet Uploaded to [place]jessenia Fried /es/ MATT GONZALEZ MD STAFF ANESTHESIOLOGIST Signed: 01/31/2024 11:05 MATT GONZALEZ [facility] Jan 30, 2024 11:36 AM ANESTHESIOLOGY PRE OPERATIVE E & M NOTE: LOCAL TITLE: ANESTHESIA PRE-OP STL STANDARD TITLE: ANESTHESIOLOGY PRE OPERATIVE E & M NOTE DATE OF NOTE: JAN 30, 2024@11:36 ENTRY DATE: JAN 30, 2024@11:36:14 AUTHOR: MATT GONZALEZ EXP COSIGNER: URGENCY: STATUS: COMPLETED JOVANA TRINIDAD is a 68 year old FEMALE Pre-operative diagnosis: screening Operation proposed: colonoscopy VITALS Age: 68 Weight: 136.1 lb [61.73 kg] (12/05/2023 10:27) Height: 64 in [162.6 cm] (12/05/2023 10:27) BMI: 23.4 Blood pressure: 137/77 (12/05/2023 10:27) Pulse: 67 (12/05/2023 10:27) Temperature: 97.6 F [36.4 C] (12/05/2023 10:27) Respiration: 16 (12/05/2023 10:27) SpO2: 99% (12/05/2023 10:27) Pain: 0 (12/05/2023 10:27) ALLERGIES AMLODIPINE MEDICATIONS Inpatient: No medications found. Active Outpatient Medications (including Supplies): Active Outpatient Medications Status 1) ALLOPURINOL 100MG TAB TAKE ONE TABLET BY MOUTH ONCE A ACTIVE (S) DAY FOR GOUT. TAKE WITH PLENTY OF [...] TIMES A DAY FOR BACTERIAL EYE INFECTION 12) TRAMADOL HCL 50MG TAB TAKE 1 TABLET BY MOUTH FOUR ACTIVE TIMES A DAY NEEDED FOR PAIN Active Non-VA Medications Status 1) Non-VA FISH OIL 1000MG (500MG DHA/EPA) CAP 1000MG BY ACTIVE MOUTH TWICE A DAY 2) Non-VA MAGNESIUM OXIDE TAB 250MG BY MOUTH TWICE A DAY ACTIVE 14 Total Medications LABS WBC 9.0 10*3/uL 12/05/2023 11:49 RBC 3.78 [...] 11:49 BASOPHILS, ABSOLUTE 0.02 10*3/uL 12/05/2023 11:49 INR VALUE 1.0 INR 08/15/2023 15:42 PROTIME 11.0 sec 08/15/2023 15:42 APTT 29.7 sec 08/15/2023 15:42 SODIUM 141 mEq/L 12/05/2023 11:49 POTASSIUM 4.3 [...] 11:49 EGFR (CKD-EPI 2020) 25.9 12/05/2023 11:49 HGA1C 5.7 % 08/15/2023 15:41 URINE COLOR Light-Yellow 10/29/2023 11:36 APPEARANCE Clear 10/29/2023 11:36 U.PH 6.5 10/29/2023 11:36 U.BILIRUBIN Negative mg/dL 10/29/2023 11:36 U.NITRITE Negative mg/dL 10/29/2023 11:36 AMPHET/METHAMPHETAMINE Negative ng/mL 08/15/2023 15:46 BENZODIAZEPINES (STL) Negative ng/mL 08/15/2023 15:46 CANNABINOIDS Negative ng/mL 08/15/2023 15:46 COCAINE METABOLITES Negative ng/mL 08/15/2023 15:46 OPIATES Negative ng/mL 08/15/2023 15:46 No TEST LAST ONE EO data found HIV COMBO FOURTH GENERATION ([place]) Negative 04/20/2014 13:34 [facility] Hep C tests in last five years. HEP C Ab HCV Ab (STL) Nonreactive S/CO (04/07/21 06:00) DIAGNOSTICS CXR: Impression for CHEST X-RAY, 2 VIEWS, 08/15/23, case [id number] No active pulmonary disease. EK08/17/2023 09:15 Local Title: EKG CONSULT ST Standard Title: CARDIOLOGY DIAGNOSTIC STUDY CONSULT AUTHOR: CLINICAL,DEVICE PROXY SERVICE DOCUMENT IN [facility] SEE FULL REPORT IN [facility] SIGNATURE NOT REQUIRED SEE SIGNATURE IN [facility]ISTA [facility] ([place] EKG) AUTO-INSTRUMENT DIAGNOSIS Procedure: 86047 12 Lead ECG Release Status: Released Off-Line Verified Date Verified: August 17, 2023@09:15:30 88875.2 Ventricular Rate: 68 BPM 03716.3 Atrial Rate: 68 BPM 91890.4 P-R Interval: 174 ms 70664.5 QRS Duration: 90 ms 40921.6 Q-T Interval: 428 ms 43506 QTC Calculation(Bazett)455 ms 28249.12 Calculated P [place]: 73 degrees 36028.13 Calculated R [place]: 65 degrees 49526.14 Calculated T [place]: 63 degrees Normal sinus rhythm Normal ECG When compared with ECG of 18-OCT-2021 14:04, No significant change was found Administrative Closure: 08/17/2023 by: CLINICAL,DEVICE PROXY SERVICE < THE ABOVE NOTE IS UNSIGNED > - DRAFT COPY * DRAFT COPY * DRAFT COPY * DRAFT COPY * DRAFT COPY * DRAFT COPY - PFT: No Pulmonary Function Test for this patient. Echocardiogram: PROGRESS NOTES SELECTED No data available for: ECHOCARDIOGRAPHIC RESULTS MA ECHOCARDIOGRAPHY CONSULT STL ECHO COMPLETED CONSULT STL TRANSESOPHAGEAL ECHOCARDIOGRAM CONSULT RESULTS (LUIS) MA TRANSESOPHAGEAL ECHOCARDIOGRAM (LUIS) CONSULT REPORT IMAGING IMPRESSION SELECTED No data available for: US ECHOCARDIOGRAPHY, TRANSTHORACIC US DOPPLER ECHOCARDIOGARPHY COLOR FLOW MAPPING -PB ONLY US DOPPLER ECHOCARDIOGRAPHY-PB ONLY US ECHOCARDIOGRAPHY, TRANSTHORACIC-PB ONLY CARDIOLOGY ECHOCARDIOGRAM No Data Available Stress test: No Stress Test Data available PROBLEM LIST 1) Hearing loss * (ICD-9-CM 389.9) 2) HTN - Hypertension (SNOMED CT 71589504) 3) Hypercholesterolemia, Familial * (ICD-9-CM 272.0) 4) Deficiency of PTH (SNOMED CT 12193044) 5) 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 (SNOMED CT 301176891133394) 6) Depressive Disorder NOS * (ICD-9-CM 311./300.4) 7) Gynecologic Exam 8) OA - Osteoarthritis (SNOMED CT 456505256) 9) Skin tag (SNOMED CT 928066014) 10) Nonvenomous insect bite (SNOMED CT 381630246) 11) Foot callus (SNOMED CT 992551878) 12) Verruca plantaris (SNOMED CT 75099498) 13) Edema (SNOMED CT 311223711) 14) Cramp (SNOMED CT 39147945) 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 16) Chronic kidney disease stage 4 17) Nephrocalcinosis 18) Anemia of chronic renal failure 19) Kidney stone 21) Anxiousness 22) CC - Collagenous colitis 23) Vitamin B>12< deficiency anaemia REVIEW OF SYSTEMS/PAST MEDICAL HISTORY Functional capacity: >4 METs, able to walk 2 city blocks or climb flight of stairs -- pt walks a mile RESPIRATORY for: - Recent or current SOB - Sleep apnea - Asthma - COPD CARDIAC for: - Recent chest pain + Hypertension + Hyperlipidemia - Myocardial infarction - Coronary artery disease - Heart failure - Valvular disease - Atrial fibrillation/flutter PSYCH/CENTRAL NERVOUS for: + Depression - Anxiety - Post-traumatic stress disorder - Cerebral vascular accident - Seizures ENDOCRINE for: - Diabetes - Hypothyroid RENAL for: + Chronic kidney disease iv, still produces urine + Nephrolithiasis GI for: - GERD - Liver disease - GI bleed VASCULAR/HEMATOLOGY/ONCOLOGY for: - Anemia - Thrombocytopenia - Bleeding disorders MUSCULOSKELETAL/SKIN/PERIPHE RAL NERVOUS for: - Obesity + Arthritis/Degenerative joint disease - Rheumatoid arthritis - Neuropathy /REPRODUCTIVE for: - Childbearing age (15 - 55 YRS), no preop HCG HABITS Alcohol: Occasional Smoking: Denies Other drugs: Denies SURGICAL HISTORY Reviewed Previous anesthesia complications: None Family history of anesthesia complications: None PHYSICAL EXAM Alert & oriented x3 Heart: Regular rate, Regular rhythm Lungs: Clear to auscultation bilaterally AIRWAY: MP CLASS:II THYROMENTAL DISTANCE:3 finger breaths RANGE OF MOTION: LROM ; no pain on flexion/extension TEETH: Okay ASA CLASS 4. A patient with severe systemic disease that is a constant threat to life. ANESTHETIC PLAN Monitored Anesthesia Care (MAC) Planned anesthetic technique and options were discussed with the patient or guardian including risks, benefits, and potential complications. PRE-INDUCTION REASSESSMENT NPO Greater than 8 hours: Yes /sandra/ MATT GONZALEZ MD STAFF ANESTHESIOLOGIST Signed: 01/30/2024 11:48 Receipt Acknowledged By: 01/30/2024 11:54 /sandra/ YONATHAN ELIAS CRNA, Anesthesiology MATT GONZALEZ [facility]
--- OUTSIDE RECORDS SUMMARY | 2024-11-30 14:54 | XMS_ITS | Encounter Summary ---
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 Date/Time Encounter Type Encounter Description Reason Provider Source Mar 29, 2024 12:54 PM IP/OBS CNSLTJ NEW/EST MOD 60 NEUROLOGY ICD-10-CM 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s classified elsewhere SHOSHANAREAGAN Figueroa [facility] Encounter Template Text not used by [place] Assessments - Encounter Diagnoses This section includes the primary and secondary diagnoses documented for the Encounter. Date/Time Primary/Secondary Diagnosis Diagnosis Name Provider Source Mar 29, 2024 05:27 PM PRIMARY Myelopa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s classified elsewhere [facility] Mar 29, 2024 05:27 PM SECONDARY Anxiety disorder, unspecified SHOSHANA,[facility] Mar 29, 2024 05:27 PM SECONDARY Dem in other dis classd elswhr, moderate, with agitation [facility] Mar 29, 2024 05:27 PM SECONDARY End stage renal disease SHOSHANA,[facility] Mar 29, 2024 05:27 PM SECONDARY Vitamin B12 deficiency anemia, unspecified SHOSHANA,[facility] Mar 29, 2024 05:27 PM SECONDARY Weakness [facility] Plan of Treatment: Future Appointments (+ 6 months) and Future Tests (+/- 45 days) The Plan of Treatment section includes future care activities for the patient from all [place] treatmentfacilities. This section includes future appointments and future orders which are active, pending or scheduled. Future Appointments This section includes appointments that were scheduled to occur 6 months from the date of the Encounter, up to a maximum of 20 appointments. The data comes from all [place] treatment facilities. Appointment Date/Time Appointment Type Appointme nt Facility Name Apr 02, 2024 10:00 AM AMBULATORY - MEDICINE [facility] Apr 14, 2024 02:30 PM AMBULATORY - MEDICINE [facility] Apr 30, 2024 02:00 PM AMBULATORY - NONE [facility] May 06, 2024 10:30 AM AMBULATORY - NONE [facility] May 30, 2024 10:00 AM AMBULATORY - MEDICINE [facility] May 30, 2024 01:30 PM AMBULATORY - NONE [facility] Jun 13, 2024 09:00 AM AMBULATORY - SURGERY . Fabián [facility] Jun 20, 2024 11:00 AM AMBULATORY - SURGERY [facility] Fabián [facility] Jul 09, 2024 01:00 PM AMBULATORY - SURGERY [facility] Fabián [facility] Jul 18, 2024 11:40 AM AMBULATORY - MEDICINE [facility] Jul 29, 2024 12:00 PM AMBULATORY - NONE [facility] Aug 11, 2024 12:20 PM AMBULATORY - MEDICINE [facility] September 09, 2024 12:00 PM AMBULATORY - NONE [facility] Active, Pending, and Scheduled Orders This section includes a listing of several types of active, pending, and scheduled orders, including clinic medications orders, diagnostic test orders, procedure orders and consult orders; where the start date of the order is 45 days before the date of the Encounter or 45 days after the date of theEncounter. The data comes from all [place] treatment facilities. Test Date/Time Test Type Test Details Facility Name Mar 25, 2024 12:00 AM Laboratory - Chemi stry Order URINALYSIS (STL-PB) URINE [facility] Mar 25, 2024 12:00 AM Laboratory - Microbiology Order C&S URINE URINE,CLEAN CATCH [facility] Mar 28, 2024 11:15 AM Laboratory - Chemi stry Order COPPER BLOOD IN AM [facility] Lab Results: +/- 30 [...] Type Comment Mar 30, 2024 07:[address] [facility] CBC BLOOD Specimen Type: BLOOD No comment entered. Ordering Provider: REINA PANDEY Report Released Date/Time: Mar 28, 2024 03:46 PM Reporting Lab: [facility] [address] [place] [phone] Performing Lab: [facility] [address] [place] [phone] WBC 6.7 10*3/uL 3.6-11.2 RBC 3.35 10*6/uL [...] 0.00-0. 20 Mar 30, 2024 07:[address] [facility] BASIC METABOLIC PANEL PLASMA Specimen Type: PL ASMA Comment: No hemolysis noted. Ordering Provider: REINA PANDEY Report Released Date/Time: Mar 28, 2024 03:46 PM Reporting Lab: [facility] [address] [place] [phone] Performing Lab: [address] [address] CREATININE 2.19 mg/dL H 0.6-1.1 UREA NITROGEN 30.2 mg/dL H 9.0-25.0 GLUCOSE 123 mg/dL H 72-99 SODIUM 144 meq/L 136-145 POTASSIUM 3.6 meq/L 3.5-5 CHLORIDE 106 meq/L 98-107 CARBON DIOXIDE 24 meq/L 22-31 CALCIUM 10.8 mg/dL H 8.4-10.4 EGFR (CKD-EPI 2020) 24.0 >60 Mar 29, 2024 07:[address] [facility] CORTISOL(STL Eff 01/21) PLASMA Specimen Type: PLASMA Comment: No hemolysis noted. Ordering Provider: REINA PANDEY Report Released Date/Time: Mar 28, 2024 05:00 PM Reporting Lab: [address] [address] Performing Lab: [address] [address] CORTISOL(L Eff 01/21) 14.700 ug/dL Mar 29, 2024 07:[address] [facility] BASIC METABOLIC PANEL PLASMA Specimen Type: PL ASMA Comment: No hemolysis noted. Ordering Provider: REINA PANDEY Report Released Date/Time: Mar 28, 2024 03:46 PM Reporting Lab: [address] [address] Performing Lab: [address] [address] CREATININE 2.58 mg/dL H 0.6-1.1 UREA NITROGEN 39.0 mg/dL H 9.0-25.0 GLUCOSE 137 mg/dL H 72-99 SODIUM 145 meq/L 136-145 POTASSIUM 3.8 meq/L 3.5-5 CHLORIDE 106 meq/L 98-107 CARBON DIOXIDE 24 meq/L 22-31 CALCIUM 10.9 mg/dL H 8.4-10.4 EGFR (CKD-EPI 2020) 19.7 >60 Mar 29, 2024 07:59 AM [facility] CBC BLOOD Specimen Type: BLOOD No comment entered. Ordering Provider: REINA PANDEY Report Released Date/Time: Mar 28, 2024 03:46 PM Reporting Lab: [address] [address] Performing Lab: [address] [address] WBC 5.9 10*3/uL 3.6-11.2 RBC 3.27 10*6/uL [...] 0.00-0. 20 Mar 28, 2024 07:[address] [facility] URINALYSIS W/ CX REFLEX (STL-PB) URINE Specim en Type: URINE No comment entered. Ordering Provider: REINA PANDEY Report Released Date/Time: Mar 28, 2024 02:27 PM Reporting Lab: [address] [address] Performing Lab: [address] [address] URINE COLOR Colorless Yellow U.BILIRUBIN Negative mg/dL Negative U.PH 7.5 5.0-8.0 APPEARANCE Clear Clear U.NITRITE Negative mg/dL Negative URN.GLUCOSE Normal mg/dL Negative URN.PROTEIN Negative mg/dL URN.UROBILINOGEN Normal mg/dL Normal URN.BLOOD Negative mg/dL Negative-Trace URN.KETONES Negative mg/dL Negative-Trac e URN.LEUK.EST. Negative mg/dL Negative-Tr kiarra URN.SPECIFIC GRAVITY 1.008 Mar 28, 2024 06:[address] [facility] METHYLMALONIC ACID SERUM Specimen Type: SERUM [...] neural tube defects and intrauterine growth restriction. [facility] utilized Multi-Modal Decomposition (MMD) analysis to establish first and second trimester- specific MMA reference intervals in , as given below: MMA, First trimester (<13 wks gestation): 58-167 nmol/L MMA, Second trimester (13-23 wks gestation): 63-241 nmol/L This test was developed and its analytical performance characteristics have been determined by [facility]. It has not been cleared or approved by the FDA. This assay has been validated pursuant to the CLIA regulations and is used for clinical purposes. Test Performed by [facility], [facility], [address] [place] [address] Iker Simon M.D., Ph.D., Director of Laboratories , CLIA [id number] Ordering Provider: REINA PANDEY Report Released Date/Time: Mar 28, 2024 03:46 PM Reporting Lab: [facility] [address] [facility] [address] Performing Lab: [facility] [address] [place] [address] METHYLMALONIC ACID 512 nmol/L H 69-390 Mar 28, 2024 06:11 PM [facility] B12 SERUM Specimen Type: SERUM No comment entered. Ordering Provider: REINA PANDEY Report Released Date/Time: Mar 28, 2024 03:46 PM Reporting Lab: [facility] [address] [facility] [address] Performing Lab: [facility] [address] [facility] [address] B12 287 pg/mL 213-816 Mar 28, 2024 06:[address] [facility] FOLATE (L-IL) SERUM Specimen Type: SERUM No comment entered. Ordering Provider: REINA PANDEY Report Released Date/Time: Mar 28, 2024 03:46 PM Reporting Lab: [address] [address] Performing Lab: [address] [address] FOLATE (L-MA) 13.9 ng/mL 7-20 Mar 28, 2024 06:[address] [facility] TSH W/ REFLEX FT4 ([facility]) PLASMA Specimen Type: PLASMA No comment entered. Ordering Provider: REINA PANDEY Report Released Date/Time: Mar 28, 2024 03:46 PM Reporting Lab: [address] [address] Performing Lab: [address] [address] TSH 2.508 u[IU]/mL 0.47-5 Mar 28, 2024 06:11 PM [facility] HGA1C BLOOD Specimen Type: BLOOD No comment entered. Ordering Provider: REINA PANDEY Report Released Date/Time: Mar 28, 2024 03:46 PM Reporting Lab: [address] [address] Performing Lab: [address] [address] HGA1C 5.5 4.0-6.0 Mar 28, 2024 06:11 PM [facility] CBC BLOOD Specimen Type: BLOOD No comment entered. Ordering Provider: REINA PANDEY Report Released Date/Time: Mar 28, 2024 03:46 PM Reporting Lab: [address] [address] Performing Lab: [address] [address] WBC 9.0 10*3/uL 3.6-11.2 RBC 3.31 10*6/uL [...] 0.00-0. 20 Mar 28, 2024 06:[address] [facility] COMPREHENSIVE METABOLIC PANEL PLASMA Specimen Type: PLASMA Comment: No hemolysis noted. Ordering Provider: REINA PANDEY Report Released Date/Time: Mar 28, 2024 03:46 PM Reporting Lab: [place] [address] [facility] [address] Performing Lab: [address] [address] CREATININE 2.68 mg/dL H 0.6-1.1 UREA NITROGEN [...] 18.8 >60 Mar 28, 2024 04:[address] [facility] MRSA SURVL NARES DNA NARES Specimen [...] Mar 28, 2024 04:15 PM Reporting Lab: [address] [address] Performing Lab: [address] [address] MRSA SURVL NARES DNA Negative Negative Mar 28, 2024 11:10 AM [facility] B12 SERUM Specimen Type: SERUM No comment entered. Ordering Provider: CLEMENT PAN Report Released Date/Time: Mar 28, 2024 11:15 AM Reporting Lab: [address] [address] Performing Lab: [address] [address] B12 247 pg/mL 213-816 Mar 28, 2024 11:[address] [facility] BASIC METABOLIC PANEL PLASMA Specimen Type: PL ASMA Comment: No hemolysis noted. Ordering Provider: CLEMENT PAN Report Released Date/Time: Mar 28, 2024 11:15 AM Reporting Lab: [address] [address] Performing Lab: [address] [address] CREATININE 2.90 mg/dL H 0.6-1.1 UREA NITROGEN 40.6 mg/dL H 9.0-25.0 GLUCOSE 99 mg/dL 72-99 SODIUM 140 meq/L 136-145 POTASSIUM 4.2 meq/L 3.5-5 CHLORIDE 104 meq/L 98-107 CARBON DIOXIDE 22 meq/L 22-31 CALCIUM 11.3 mg/dL H 8.4-10.4 EGFR (CKD-EPI 2020) 17.1 >60 Mar 28, 2024 11:10 AM [facility] CBC BLOOD Specimen Type: BLOOD No comment entered. Ordering Provider: CLEMENT PAN Report Released Date/Time: Mar 28, 2024 11:15 AM Reporting Lab: [facility] [address] [facility] [address] Performing Lab: [facility] [address] [facility] [address] WBC 9.9 10*3/uL 3.6-11.2 RBC 3.34 10*6/uL [...] 10*3/uL 2.10-8.00 Mar 25, 2024 11:45 AM [facility] MAGNESIUM PLASMA Specimen Type: PLASM A Comment: No hemolysis noted. Ordering Provider: MAN ARREDONDO Report Released Date/Time: Mar 25, 2024 11:30 AM Reporting Lab: [facility] [address] [facility] [address] Performing Lab: [facility] [address] [facility] [address] MAGNESIUM 1.8 mg/dL 1.6-2.6 Mar 25, 2024 11:45 AM [facility] CBC BLOOD Specimen Type: BLOOD No comment entered. Ordering Provider: MAN ARREDONDO Report Released Date/Time: Mar 25, 2024 11:30 AM Reporting Lab: [facility] [address] [place] [phone] Performing Lab: [address] [address] WBC 9.9 10*3/uL 3.6-11.2 RBC 3.36 10*6/uL [...] 0.00-0. 20 Mar 25, 2024 11:45 AM [facility] COMPREHENSIVE METABOLIC PANEL PLASMA Specimen Type: PLASMA Comment: No hemolysis noted. Ordering Provider: MAN ARREDONDO Report Released Date/Time: Mar 25, 2024 11:30 AM Reporting Lab: [facility] [address] [facility] [address] Performing Lab: [address] [address] CREATININE 2.62 mg/dL H 0.6-1.1 UREA NITROGEN [...] PM 97.9 63 147/83 20 99 0 [facility] Mar 29, 2024 08:21 PM 0 [facility] Mar 29, 2024 10:26 AM 0 [facility] Mar 29, 2024 09:41 AM 97.9 60 144/75 18 99 [facility] Mar 29, 2024 05:28 AM 98.2 60 144/82 20 97 0 [facility] Social History: Smoking Status (Most current) and Tobacco Use (All prior to encounter date) This section includes the most current, and the historical, smoking and tobacco- related health factors from the [place] facility where the Encounter took place. Current Smoking Status This section includes the most current smoking, or tobacco-related health factor, from the [place] facility where the Encounter took place. Date/Time Current Smoking Status Comment Abbie castillo Mar 28, 2024 12:54 PM ORYX ADMIT TOBACCO SCREEN REFUSED [facility] Tobacco Use History This section includes a history of the smoking, or tobacco-related health factors, that were collected on or before the date of the Encounter. The data comes from the [place] facility where the Encounter took place. Date/Time Smoking Status/Tobacco Use Comment F acility Sep 24, 2023 01:20 PM VA-TOBACCO FORMER USER [facility] Sep 24, 2023 01:20 PM VA-TOBACCO QUIT [address] [facility] Apr 06, 2021 07:54 PM ORYX ADMIT TOBACCO SCREEN NO [facility] Jul 26, 2020 09:33 AM VA-TOBACCO FORMER USER [facility] Jul 26, 2020 09:33 AM VA-TOBACCO QUIT [address] [facility] Aug 13, 2019 05:31 PM ORYX ADMIT TOBACCO SCREEN NO [facility] Nov 26, 2008 11:49 AM QUIT TOBACCO >[address] [facility] Advance Directives: All historical and current Section Date Range: From patient's date of to the date document was created. This section includes ALL of a patient's completed or amended [place] Advance and Rescinded Directives. The entries below indicate that a directive exists for the patient, but an actual copy is not included with this document. The data comes from all [place] facilities. Date Advance Directives Provider Source Nov 18, 2021 STATE-AUTHORIZED POR TABLE ORDERS ELIDIA NOONAN [facility] Radiology Reports: +/- 30 days of [...] the Encounter. The data comes from all [place] treatment facilities. Date/Time Radiology Report Provider Source Apr 14, 2024 01:58 PM US RENAL COMPLETE: JOVANA TRINIDAD [id number] -1955 F Exm Date: APR 14, 2024@13:58 Req Phys: MAN ARREDONDO Pat Loc: JOH[facility]-ST CLR PACT 2 PCP (Req'g Lo Img Loc: [facility]-ULTRASOUND [facility] Service: [facility], [facility] [address] [place] [address] (Case [id number] COMPLETE) US RENAL COMPLETE (US Detailed) CPT:29061 Reason for Study: worsening kidney funcion Clinical History: Report Status: Verified Date Reported: APR 14, 2024 Date Verified: APR 14, 2024 Railways Assistant E-Sig:/ES/MARYANN WAKEFIELD Report: Case [id number]. US RENAL COMPLETE. TECHNIQUE: Realtime ultrasound examination [...] disease. Report dictated by Gera Yee (residential construction instructor) Maryann Ball, have reviewed the images and report and concur with these findings. Primary Interpreting Staff: MARYANN WAKEFIELD MD (Railways Assistant) Primary Interpreting Resident: GERA YEE MD /MARYANN FLOREZ [facility] Mar 28, 2024 02:15 PM MRI SPINE THORACIC W/O CONT: JOVANA TRINIDAD BIRDIE [id number] -1955 F Exm Date: MAR 28, 2024@14:15 Req Phys: CLEMENT PAN Pat Loc: 6-N SURG-JOHANA/03-28-2024@15:52 Img Loc: [facility] Service: Unknown [facility], [facility] [address] [place] [address] (Case [id number] COMPLETE) MRI SPINE THORACIC W/O CONT (MRI Detailed) CPT:99465 Reason for Study: spastic gait, rule out [...] Responsible Attending: clement pan Attending Contact Number: [phone] Resident Contact Number: Does your patient have [...] 28, 2024 Date Verified: MAR 28, 2024 Railways Assistant E-Sig:/ES/Alexis Gallo MD. FACR. Report: History: spastic [...] Interpreting Staff: Alexis Gallo MD. FACR, Neuroradiologist (Railways Assistant) /ALEXIS CORBETT [facility] Mar 28, 2024 02:12 PM MRI SPINE CERVICAL W/O CONT: JOVANA TRINIDAD [id number] -1955 F Exm Date: MAR 28, 2024@14:12 Req Phys: CLEMENT PAN Pat Loc: 6-N SURG-JOHANA/03-28-2024@15:46 Img Loc: [facility] Service: [facility], [facility] [address] [place] [address] (Case [id number] COMPLETE) MRI SPINE CERVICAL W/O CONT (MRI Detailed) CPT:47672 Reason for Study: spastic gait, rule out [...] 28, 2024 Date Verified: MAR 28, 2024 Railways Assistant E-Sig:/ES/Alexis Gallo MD. FACR. Report: History: spastic [...] Interpreting Staff: Alexis Gallo MD. FACR, Neuroradiologist (Railways Assistant) /ALEXIS CORBETT [facility] Mar 28, 2024 02:11 PM MRI BRAIN W/O CONT : JOVANA TRINIDAD [id number] -1955 F Exm Date: MAR 28, 2024@14:11 Req Phys: CLEMENT PAN [facility] Loc: JOH[facility]-EMERGENCY DEPT 2ND SHIFT (R Img Loc: [facility] Service: Unknown [address] [address] (Case [id number] COMPLETE) MRI BRAIN W/O CONT (MRI Detailed) CPT:20109 Reason for Study: cognitive decline ? vascular dementia Clinical History: Responsible Attending: clement pan Attending Contact Number: [phone] Resident Contact Number: Does your patient have [...] 28, 2024 Date Verified: MAR 28, 2024 Railways Assistant E-Sig:/ES/Alexis Gallo MD. FACR. Report: History: cognitive [...] Interpreting Staff: Alexis Gallo MD. FACR, Neuroradiologist (Railways Assistant) /ALEXIS CORBETT [facility] Mar 22, 2024 05:56 PM CHEST PORTABLE: JOVANA TRINIDAD BIRDIE [id number] -1955 F Exm Date: MAR 22, 2024@17:56 Req Phys: MAN ARREDONDO Pat Loc: JOHANA-ST CLR PACT 2 PCP (Req'g Lo Img Loc: OUTSIDE [facility]-GENERAL RAD Service: Unknown Screen: Patient is unable to answer or is unsure Screen Comment: OUTSIDE STUDY (Case [id number] COMPLETE) CHEST PORTABLE (RAD Detailed) CPT:52298 Reason for Study: Exam imported from outside Clinical History: Original Data for Imported Study Patient Name: JOVANA TRINIDAD Date: 1955 Sex: F Study Date: 03/22/24 Study Time: 05:56:26 Study Description: XR chest 1V portable Referring Physician: ERICA ALATORRE Series 1: 1 SR file, description: SHAHIDI Basic Text SR for [facility]7 Radiological Report Series 2: 1 CR file, description: XR chest 1V portable Report Status: Electronically Filed Date Reported: APR 14, 2024 Report: Electronically generated report for outside study. Impression: Electronically generated report for outside study. VERIFIED BY: / *ELECTRONICALLY FILED* [facility] Encounter Notes: All associated encounter notes This section contains the clinical notes associated to the Encounter. Date/Time Encounter Note(s) Provider Source Mar 29, 2024 12:54 PM NEUROLOGY INPATIENT NOTE: LOCAL TITLE: NEUROLOGY INPATIENT FOLLOW UP [facility] STANDARD TITLE: NEUROLOGY INPATIENT NOTE DATE OF NOTE: MAR 29, 2024@12:54 ENTRY DATE: MAR 29, 2024@12:54:46 AUTHOR: ISACC PEREZ EXP COSIGNER: REAGAN ANNA URGENCY: STATUS: COMPLETED NEUROLOGY INPATIENT FOLLOW UP Date of Visit: 03/29/24 12:54 INTERVAL EVENTS MRI brain no acute findings. MRI spine shows disc protusion C3/C4 however no spinal cord or root compression. Otherwise no findings on MRI C and T spine. Spoke in depth with patient about her symptoms. She has been having trouble turning while walking for over 4 years now, dating back to . She says she does not always fall when she turns while walking, sometimes it is better, sometimes it is worse. She denies dizziness or vertigo during these peisodes. She denies urinary incontinence with these episodes. Ultimately she tells me she is unsure why she is in the hospital due to the chronicity of her symptoms. B12 287, folate wnl, tsh wnl. HPI PER DR. SOTO 68 year old WHITE FEMALE with PMH as below presented to ED for the evaluation of falls and balance issue. According to patient her symptoms has been going on for a while, reports havig a fall around in sep and her most recent fall was yesterday. Patient mentioned that daily she feels like falling but able to catch herself. She lives in a [place] facility. She denies having any dizziness or [...] except what is mentioned above. As per [facility] hospital review, She reported on clinic visit that she was walking fine last year. her friends started pointing to her that she is walking funny as she said. she received a walker, and she does not know exactly when. She reported having PT who recommended the walker. she reported she was recently discharged from [facility] for UTI. she is on transplant list for her kidneys. On arrival to ED her BP was 140/82 and pulse was 61. CBC was unremarkable. No neuroimaging avaliuable at this time. 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 (SNOMED CT 665207011383136) 6) Depressive Disorder NOS * (ICD-9-CM 311./300.4) 7) Gynecologic Exam 8) OA - Osteoarthritis (SNOMED CT 284539179) 9) Skin tag (SNOMED CT 226278801) 10) Nonvenomous insect bite (SNOMED CT 133856490) 11) Foot callus (SNOMED CT 702837483) 12) Verruca plantaris (SNOMED CT 04576833) 13) Edema (SNOMED CT 430245592) 14) Cramp (SNOMED CT 49470711) 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 All systems were negative except as per HPI above. Physical Examination: Vital Signs: Pulse: 60 (03/29/2024 09:41) BP: 144/75 (03/29/2024 09:41) RESP: 18 (03/29/2024 09:41) Pain: 0 (03/29/2024 10:26) Weight: 128.2 lb [58.15 kg] (03/25/2024 10:39) Neurologic Examination: Gen: NAD, appropriate affect, normal built Neurologic: Mental status: patient awake, eating in bed. Alert and oriented to person place time and situation. CN: in tact. swallowing without difficulty. No abnormal movements such as tremor, tone normal no rigidity. 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 reflexes are 3 throughout the b/l bicep, tricep, patellar, achilles. fnf in tact. gait deferred. LAB DATA: SODIUM 145 mEq/L 03/29/2024 06:00 POTASSIUM 3.8 mEq/L 03/29/2024 06:00 CHLORIDE 106 mEq/L 03/29/2024 06:00 UREA NITROGEN 39.0 H mg/dL 03/29/2024 06:00 CREATININE 2.58 H mg/dL 03/29/2024 06:00 CALCIUM 10.9 H mg/dL 03/29/2024 06:00 PROTEIN 7.6 g/dL 03/28/2024 18:11 ALBUMIN 4.0 g/dL 03/28/2024 18:11 ALKALINE PHOSPHATASE 68 U/L 03/28/2024 18:11 ALT/SGPT 10 U/L 03/28/2024 18:11 AST/SGOT 19 U/L 03/28/2024 18:11 TOTAL BILIRUBIN 0.4 mg/dL 03/28/2024 18:11 CARBON DIOXIDE 24 mEq/L 03/29/2024 06:00 GLUCOSE 137 H mg/dL 03/29/2024 06:00 EGFR (CKD-EPI 2020) 19.7 03/29/2024 06:00 WBC 5.9 10*3/uL 03/29/2024 06:00 RBC 3.27 L 10*6/uL 03/29/2024 06:00 HGB 9.9 L g/dL 03/29/2024 06:00 HCT 31.8 L % 03/29/2024 06:00 MCV 97.2 fL 03/29/2024 06:00 MCH 30.3 pg 03/29/2024 06:00 MCHC 31.1 L g/dL 03/29/2024 06:00 RDW 14.5 % 03/29/2024 06:00 PLT 203 10*3/uL 03/29/2024 06:00 MPV 12.0 H fL 03/29/2024 06:00 NEUTROPHILS, AUTO % 55 % 03/29/2024 06:00 LYMPHOCYTES, AUTO % 31 % 03/29/2024 06:00 MONOCYTES, AUTO % 10 % 03/29/2024 06:00 EOSINOPHILS, AUTO % 4 % 03/29/2024 06:00 BASOPHILS, AUTO % 0 % 03/29/2024 06:00 NEUTROPHILS, ABSOLUTE 3.24 10*3/uL 03/29/2024 06:00 LYMPHOCYTES, ABSOLUTE 1.83 10*3/uL 03/29/2024 06:00 MONOCYTES, ABSOLUTE 0.59 10*3/uL 03/29/2024 06:00 EOSINOPHILS, ABSOLUTE 0.26 10*3/uL 03/29/2024 06:00 BASOPHILS, ABSOLUTE 0.01 10*3/uL 03/29/2024 06:00 NEUTROPHILS 65.4 % 03/28/2024 11:10 LYMPHOCYTES 20.9 % 03/28/2024 11:10 MONOCYTES 5.5 % 03/28/2024 11:10 EOSINOPHILS 2.7 % 03/28/2024 11:10 ATYPICAL LYMPHOCYTES 5.5 % 03/28/2024 11:10 IMPRESSION/PLAN: 68 yof presenting with chronic falls while turning during walking. Her exam does not show any focal deficits, and is symmetric throughout. Imaging does reveal a disc protrusion in C3-C4 levels, however the spinal cord or roots are not compressed. Myelopathy has been ruled out with her exam and imaging findings. Ultimately this appears to be a chronic issue. - Supplement with B12 and multivitamin - Can follow outpatient neurology clinic - No further workup from neurology standpoint. Discussed with Dr. Shoshana Perez MD PGY-4 Neurology Resient /sandra/ Isacc Perez MD Resident Physician Signed: 03/29/2024 13:03 /sandra/ REAGAN ANNA MD NEUROLOGY STAFF PHYSICIAN Cosigned: 03/29/2024 17:27 ISACC PEREZ [facility]
--- OUTSIDE RECORDS SUMMARY | 2024-11-30 14:54 | XMS_ITS | Encounter Summary ---
Author Name [facility] Organization [facility] [place] Address [address] [place] [address] Care Team Providers Care Employee Welfare Manager Name Role Phone MAN ARREDONDO Primary Care [...] PRESCRIPT ION NONE Mar 16, 2006 NONE [id number] [place] PATIENT [facility] PREFERRED PROVIDER ORGANIZAT ION (PPO) DEPAR TMENT OF DEFEN S Mar 16, 2006 [id number] SHELBY BRA PATIENT MEDICARE (WNR) MEDICARE (M) PART A Nov 14, 2020 PART A [id number] [phone] SHELBY BRA PATIENT MEDICARE (WNR) MEDICARE (M) PART B Nov 14, 2020 PART B [id number] MALAVE PATIENT Selected Encounter This section includes the information on record at [place] for the Encounter. Date/Time Encounter Type Encounter Description Reason Provider Source Mar 04, 2024 04:00 PM Outpatient Encounter GENERAL INTERNAL MEDICINE BRODY SAUL Encounter Template Text not used by [place] Plan of Treatment: Future Appointments (+ 6 months) and Future Tests (+/- 45 days) The Plan of Treatment section includes future care activities for the patient from all [place] treatmentfacilities. This section includes future appointments and future orders which are active, pending or scheduled. Future Appointments This section includes appointments that were scheduled to occur 6 months from the date of the Encounter, up to a maximum of 20 appointments. The data comes from all [place] treatment facilities. Appointment Date/Time Appointment Type Appointme nt Facility Name Mar 25, 2024 10:30 AM AMBULATORY - MEDICINE . [facility] Mar 27, 2024 01:00 PM AMBULATORY - NEUROLOGY [facility] Mar 28, 2024 10:49 AM AMBULATORY - MEDICINE [facility] Apr 02, 2024 10:00 AM AMBULATORY - MEDICINE . [facility] Apr 14, 2024 02:30 PM AMBULATORY - MEDICINE [facility] Apr 30, 2024 02:00 PM AMBULATORY - NONE [facility] May 06, 2024 10:30 AM [facility]ONE [facility] May 30, 2024 10:00 AM AMBULATORY - MEDICINE [facility] May 30, 2024 01:30 PM AMBULATORY - NONE [facility] Jun 13, 2024 09:00 AM AMBULATORY - SURGERY [facility] Jun 20, 2024 11:00 AM AMBULATORY - SURGERY [facility] Jul 09, 2024 01:00 PM AMBULATORY - SURGERY [facility] Jul 18, 2024 11:40 AM AMBULATORY - MEDICINE . [facility] Jul 29, 2024 12:00 PM AMBULATORY - NONE [facility] Aug 11, 2024 12:20 PM AMBULATORY - MEDICINE [facility] Active, Pending, and Scheduled Orders This section includes a listing of several types of active, pending, and scheduled orders, including clinic medications orders, diagnostic test orders, procedure orders and consult orders; where the start date of the order is 45 days before the date of the Encounter or 45 days after the date of theEncounter. The data comes from all [facility] facilities. Test Date/Time Test Type Test Details Facility Name Mar 25, 2024 12:00 AM Laboratory - Chemi stry Order URINALYSIS (STL-PB) URINE [facility] Mar 25, 2024 12:00 AM Laboratory - Microbiology Order C&S URINE URINE,CLEAN CATCH [facility] Mar 28, 2024 11:15 AM Laboratory - Chemi stry Order COPPER BLOOD IN AM [facility] Lab Results: +/- 30 days of the [...] Type Comment Mar 30, 2024 07:44 AM [facility] BASIC METABOLIC PANEL PLASMA Specimen Type: PLASMA Comment: No hemolysis noted. Ordering Provider: REINA PANDEY Report Released Date/Time: Mar 28, 2024 03:46 PM Reporting Lab: [address] [address] Performing Lab: [address] [address] CREATININE 2.19 mg/dL H 0.6-1.1 UREA NITROGEN 30.2 mg/dL H 9.0-25.0 GLUCOSE 123 mg/dL H 72-99 SODIUM 144 meq/L 136-145 POTASSIUM 3.6 meq/L 3.5-5 CHLORIDE 106 meq/L 98-107 CARBON DIOXIDE 24 meq/L 22-31 CALCIUM 10.8 mg/dL H 8.4-10.4 EGFR (CKD-EPI 2020) 24.0 >60 Mar 30, 2024 07:44 AM [facility] CBC BLOOD Specimen Type: BLOOD No comment entered. Ordering Provider: REINA PANDEY Report Released Date/Time: Mar 28, 2024 03:46 PM Reporting Lab: [facility] [address] [facility] [address] Performing Lab: [facility] [address] [facility] [address] WBC 6.7 10*3/uL 3.6-11.2 RBC 3.35 10*6/uL [...] 0.00-0. 20 Mar 29, 2024 07:59 AM [facility] CORTISOL(STL Eff 01/21) PLASMA Specimen Type: PLASMA Comment: No hemolysis noted. Ordering Provider: REINA PANDEY Report Released Date/Time: Mar 28, 2024 05:00 PM Reporting Lab: [facility] [address] [place] [phone] Performing Lab: [address] [address] CORTISOL(STL Eff 01/21) 14.700 ug/dL Mar 29, 2024 07:59 AM [facility] BASIC METABOLIC PANEL PLASMA Specimen Type: PL ASMA Comment: No hemolysis noted. Ordering Provider: REINA PANDEY Report Released Date/Time: Mar 28, 2024 03:46 PM Reporting Lab: [address] [address] Performing Lab: [address] [address] CREATININE 2.58 mg/dL H 0.6-1.1 UREA NITROGEN 39.0 mg/dL H 9.0-25.0 GLUCOSE 137 mg/dL H 72-99 SODIUM 145 meq/L 136-145 POTASSIUM 3.8 meq/L 3.5-5 CHLORIDE 106 meq/L 98-107 CARBON DIOXIDE 24 meq/L 22-31 CALCIUM 10.9 mg/dL H 8.4-10.4 EGFR (CKD-EPI 2020) 19.7 >60 Mar 29, 2024 07:59 AM [facility] CBC BLOOD Specimen Type: BLOOD No comment entered. Ordering Provider: REINA PANDEY Report Released Date/Time: Mar 28, 2024 03:46 PM Reporting Lab: [address] [address] Performing Lab: [address] [address] WBC 5.9 10*3/uL 3.6-11.2 RBC 3.27 10*6/uL [...] 0.00-0. 20 Mar 28, 2024 07:20 PM [facility] URINALYSIS W/ CX REFLEX (STL-PB) URINE Specim en Type: URINE No comment entered. Ordering Provider: REINA PANDEY Report Released Date/Time: Mar 28, 2024 02:27 PM Reporting Lab: [facility] [address] [facility] [address] Performing Lab: [facility] [address] [facility] [address] URINE COLOR Colorless Yellow U.BILIRUBIN Negative mg/dL Negative U.PH 7.5 5.0-8.0 APPEARANCE Clear Clear U.NITRITE Negative mg/dL Negative URN.GLUCOSE Normal mg/dL Negative URN.PROTEIN Negative mg/dL URN.UROBILINOGEN Normal mg/dL Normal URN.BLOOD Negative mg/dL Negative-Trace URN.KETONES Negative mg/dL Negative-Trac e URN.LEUK.EST. Negative mg/dL Negative-Tr kiarra URN.SPECIFIC GRAVITY 1.008 Mar 28, 2024 06:11 PM [facility] METHYLMALONIC ACID SERUM Specimen Type: SERUM Comment: [...] neural tube defects and intrauterine growth restriction. [facility] utilized Multi-Modal Decomposition (MMD) analysis to establish first and second trimester- specific MMA reference intervals in , as given below: MMA, First trimester (<13 wks gestation): 58-167 nmol/L MMA, Second trimester (13-23 wks gestation): 63-241 nmol/L This test was developed and its analytical performance characteristics have been determined by [facility]. It has not been cleared or approved by the FDA. This assay has been validated pursuant to the CLIA regulations and is used for clinical purposes. Test Performed by [facility], [facility], [address] [place], [place] Iker Simon M.D., Ph.D., Director of Laboratories , CLIA [id number] Ordering Provider: REINA PANDEY Report Released Date/Time: Mar 28, 2024 03:46 PM Reporting Lab: [facility] [address] [place] [phone] Performing Lab: [facility] [address] [facility] METHYLMALONIC ACID 512 nmol/L H 69-390 Mar 28, 2024 06:11 PM [facility] FOLATE (L-MA) SERUM Specimen Type: SERUM No comment entered. Ordering Provider: REINA PANDEY Report Released Date/Time: Mar 28, 2024 03:46 PM Reporting Lab: [place] [address] [facility] [address] Performing Lab: [place] [address] [facility] [address] FOLATE (L-OH) 13.9 ng/mL 7-20 Mar 28, 2024 06:11 PM [facility] B12 SERUM Specimen Type: SERUM No comment entered. Ordering Provider: REINA PANDEY Report Released Date/Time: Mar 28, 2024 03:46 PM Reporting Lab: [place] [address] [facility] [address] Performing Lab: [address] [address] B12 287 pg/mL 213-816 Mar 28, 2024 06:11 PM [facility] COMPREHENSIVE METABOLIC PANEL PLASMA Specimen Type: PLASMA Comment: No hemolysis noted. Ordering Provider: REINA PANDEY Report Released Date/Time: Mar 28, 2024 03:46 PM Reporting Lab: [place] [address] [facility] [address] Performing Lab: [place] [address] [facility] [address] CREATININE 2.68 mg/dL H 0.6-1.1 UREA NITROGEN [...] 2024 06:11 PM [facility] HGA1C BLOOD Specimen Type: BLOOD No comment entered. Ordering Provider: REINA PANDEY Report Released Date/Time: Mar 28, 2024 03:46 PM Reporting Lab: [facility] [address] [facility] [address] Performing Lab: [address] [address] HGA1C 5.5 4.0-6.0 Mar 28, 2024 06:11 PM [facility] TSH W/ REFLEX FT4 (STL) PLASMA Specimen Type: PLASMA No comment entered. Ordering Provider: REINA PANDEY Report Released Date/Time: Mar 28, 2024 03:46 PM Reporting Lab: [facility] [address] [facility] [address] Performing Lab: [facility] [address] [facility] [address] TSH 2.508 u[IU]/mL 0.47-5 Mar 28, 2024 06:11 PM [facility] CBC BLOOD Specimen Type: BLOOD No comment entered. Ordering Provider: REINA PANDEY Report Released Date/Time: Mar 28, 2024 03:46 PM Reporting Lab: [facility] [address] [place] [phone] Performing Lab: [facility] [address] [facility] [address] WBC 9.0 10*3/uL 3.6-11.2 RBC 3.31 10*6/uL [...] 0.00-0. 20 Mar 28, 2024 04:18 PM [facility] MRSA SURVL NARES DNA NARES Specimen Type: [...] Mar 28, 2024 04:15 PM Reporting Lab: [address] [address] Performing Lab: [address] [address] MRSA SURVL NARES DNA Negative Negative Mar 28, 2024 11:10 AM [facility] B12 SERUM Specimen Type: SERUM No comment entered. Ordering Provider: CLEMENT PAN Report Released Date/Time: Mar 28, 2024 11:15 AM Reporting Lab: [address] [address] Performing Lab: [address] [address] B12 247 pg/mL 213-816 Mar 28, 2024 11:10 AM [facility] BASIC METABOLIC PANEL PLASMA Specimen Type: PL ASMA Comment: No hemolysis noted. Ordering Provider: CLEMENT PAN Report Released Date/Time: Mar 28, 2024 11:15 AM Reporting Lab: [address] [address] Performing Lab: [address] [address] CREATININE 2.90 mg/dL H 0.6-1.1 UREA NITROGEN 40.6 mg/dL H 9.0-25.0 GLUCOSE 99 mg/dL 72-99 SODIUM 140 meq/L 136-145 POTASSIUM 4.2 meq/L 3.5-5 CHLORIDE 104 meq/L 98-107 CARBON DIOXIDE 22 meq/L 22-31 CALCIUM 11.3 mg/dL H 8.4-10.4 EGFR (CKD-EPI 2020) 17.1 >60 Mar 28, 2024 11:10 AM [facility] CBC BLOOD Specimen Type: BLOOD No comment entered. Ordering Provider: CLEMENT PAN Report Released Date/Time: Mar 28, 2024 11:15 AM Reporting Lab: [address] [address] Performing Lab: [address] [address] WBC 9.9 10*3/uL 3.6-11.2 RBC 3.34 10*6/uL [...] 10*3/uL 2.10-8.00 Mar 25, 2024 11:45 AM [facility] MAGNESIUM PLASMA Specimen Type: PLASM A Comment: No hemolysis noted. Ordering Provider: MAN ARREDONDO Report Released Date/Time: Mar 25, 2024 11:30 AM Reporting Lab: [facility] [address] [facility] [address] Performing Lab: [facility] [address] [place] [address] MAGNESIUM 1.8 mg/dL 1.6-2.6 Mar 25, 2024 11:45 AM [facility] COMPREHENSIVE METABOLIC PANEL PLASMA Specimen Type: PLASMA Comment: No hemolysis noted. Ordering Provider: MAN ARREDONDO Report Released Date/Time: Mar 25, 2024 11:30 AM Reporting Lab: [facility] [address] [facility] [address] Performing Lab: [facility] [address] [facility] [address] CREATININE 2.62 mg/dL H 0.6-1.1 UREA NITROGEN [...] 19.3 >60 Mar 25, 2024 11:45 AM [facility] CBC BLOOD Specimen Type: BLOOD No comment entered. Ordering Provider: MAN ARREDONDO Report Released Date/Time: Mar 25, 2024 11:30 AM Reporting Lab: [facility] [address] [facility] [address] Performing Lab: [facility] [address] [facility] [address] WBC 9.9 10*3/uL 3.6-11.2 RBC 3.36 10*6/uL [...] and tobacco- related health factors from the [place] facility where the Encounter took place. Current Smoking Status This section includes the most current smoking, or tobacco-related health factor, from the [place] facility where the Encounter took place. Date/Time Current Smoking Status Comment Abbie castillo Sep 24, 2023 01:20 PM VA-TOBACCO FORMER USER [facility] Tobacco Use History This section includes a history of the smoking, or tobacco-related health factors, that were collected on or before the date of the Encounter. The data comes from the [place] facility where the Encounter took place. Date/Time Smoking Status/Tobacco Use Comment Asuncion castano Sep 24, 2023 01:20 PM VA-TOBACCO QUIT 15 YRS OR MORE [facility] Apr 06, 2021 07:54 PM ORYX ADMIT TOBACCO SCREEN NO [facility] Jul 26, 2020 09:33 AM VA-TOBACCO FORMER USER [facility] Jul 26, 2020 09:33 AM VA-TOBACCO QUIT 15 YRS OR MORE [facility] Aug 13, 2019 05:31 PM ORYX ADMIT TOBACCO SCREEN NO [facility] Nov 26, 2008 11:49 AM QUIT TOBACCO >7 YEARS AGO [facility] Advance Directives: All historical and current Section Date Range: From patient's date of to the date document was created. This section includes ALL of a patient's completed or amended [place] Advance and Rescinded Directives. The entries below indicate that a directive exists for the patient, but an actual copy is not included with this document. The data comes from all [facility]. Date Advance Directives Provider Source Nov 18, 2021 STATE-AUTHORIZED POR TABLE ORDERS ELIDIA NOONAN [facility] Radiology Reports: +/- 30 days of the [...] the Encounter. The data comes from all [place] treatment facilities. Date/Time Radiology Report Provider Source Mar 28, 2024 02:15 PM MRI SPINE THORACIC W/O CONT: JOVANA TRINIDAD [id number] -1955 F Exm Date: MAR 28, 2024@14:15 Req Phys: CLEMENT PAN Loc: 6-N SURG-[facility]/03-28-2024@15:52 Img Loc: [facility] Service: Unknown [facility], [facility] [address] [place] [address] (Case [id number] COMPLETE) MRI SPINE THORACIC W/O CONT (MRI Detailed) CPT:87556 Reason for Study: spastic gait, rule out [...] Responsible Attending: clement pan Attending Contact Number: [phone] Resident Contact Number: Does your patient have [...] 28, 2024 Date Verified: MAR 28, 2024 Advertising Statistical Clerk E-Sig:/ES/Alexis Gallo MD. FACR. Report: History: spastic [...] Interpreting Staff: Alexis Gallo MD. FACR, Neuroradiologist (Advertising Statistical Clerk) /[facility]IS [facility] Mar 28, 2024 02:12 PM MRI SPINE CERVICAL W/O CONT: JOVANA TRINIDAD [id number] -1955 F Exm Date: MAR 28, 2024@14:12 Req Phys: PANCLEMENT Pat Loc: 6-N SURG-[facility]/03-28-2024@15:46 Img Loc: [facility] Service: Unknown [facility], [facility] [address] [place] [address] (Case [id number] COMPLETE) MRI SPINE CERVICAL W/O CONT (MRI Detailed) CPT:54839 Reason for Study: spastic gait, rule out [...] 28, 2024 Date Verified: MAR 28, 2024 Advertising Statistical Clerk E-Sig:/ES/Alexis Gallo MD. FACR. Report: History: spastic [...] Interpreting Staff: Alexis Gallo MD. FACR, Neuroradiologist (Advertising Statistical Clerk) /[facility]EXIS [facility] Mar 28, 2024 02:11 PM MRI BRAIN W/O CONT : JOVANA TRINIDAD [id number] -1955 F Exm Date: MAR 28, 2024@14:11 Req Phys: CLEMENT PAN Pat Loc: [facility]-EMERGENCY DEPT 2ND SHIFT (R Img Loc: [facility] Service: [facility], [facility] [address] [place] [id number] (Case [id number] COMPLETE) MRI BRAIN W/O CONT (MRI Detailed) CPT:01226 Reason for Study: cognitive decline ? vascular dementia Clinical History: Responsible Attending: clement pan Attending Contact Number: [phone] Resident Contact Number: Does your patient have [...] 28, 2024 Date Verified: MAR 28, 2024 Advertising Statistical Clerk E-Sig:/ES/Alexis Gallo MD. FACR. Report: History: cognitive [...] Interpreting Staff: Alexis Gallo MD. FACR, Neuroradiologist (Advertising Statistical Clerk) /ALEXIS CORBETT [facility] Mar 22, 2024 05:56 PM CHEST PORTABLE: JOVANA TRINIDAD [id number] -1955 F Exm Date: MAR 22, 2024@17:56 Req Phys: MAN ARREDONDO Loc: -[facility] PACT 2 PCP (Req'g Img Loc: OUTSIDE [facility]-GENERAL RAD Service: Unknown Screen: Patient is unable to answer or is unsure Screen Comment: OUTSIDE STUDY (Case [id number] COMPLETE) CHEST PORTABLE (RAD Detailed) CPT:58188 Reason for Study: Exam imported from outside [...] outside study. VERIFIED BY: / *ELECTRONICALLY FILED* [facility] Feb 25, 2024 01:25 PM [place] BONE IMAGING, W HOLE BODY: JOVANA TRINIDAD BIRDIE [id number] -1955 F Exm Date: FEB 25, 2024@13:25 Req Phys: MAN ARREDONDO Pat Loc: -[facility] PACT 2 PCP (Req'g Lo Img Loc: OUTSIDE [facility]NUCLEAR MED Service: Unknown Screen: Patient is unable to answer or is unsure Screen Comment: OUTSIDE STUDY (Case [id number] COMPLETE) NM BONE IMAGING, WHOLE BODY (NM Detailed) CPT:69177 Reason for Study: Exam imported from outside [...] study. VERIFIED BY: / *ELECTRONICALLY FILED* [facility] Feb 23, 2024 06:[address] ABDOMEN AND PEL VIS W/O CONTRAST: JOVANA TRINIDAD BIRDIE [id number] -1955 F Exm Date: FEB 23, 2024@18:26 Req Phys: MAN ARREDONDO Loc: [facility] PACT 2 PCP (Mckenzie'pasquale Elizalde Img Loc: OUTSIDE -CT Service: Unknown Screen: Patient is unable to answer or is unsure Screen Comment: OUTSIDE STUDY (Case [id number] COMPLETE) CT ABDOMEN AND PELVIS W/O CONTRAS(CT Detailed) CPT:13459 Reason for Study: Exam imported from outside Clinical History: Original Data for Imported Study Patient Name: JOVANA TRINIDAD Date: 1955 Sex: F Study Date: 02/23/24 Study Time: 06:26:50 Study Description: CT abdomen pelvis wo con Referring Physician: SRINIVAS MCFARLAND Series 1: 1 CT file, description: CT abdomen pelvis wo con Series 2: 1 SR file, description: [employer] Basic Text SR for HL7 Radiological Report Series 3: 1 CT file, description: Dose Report Series 4: 2 CT files, description: Networking Specialist Series 5: 53 CT files, description: Lung [...] study. VERIFIED BY: / *ELECTRONICALLY FILED* [facility] Feb 23, 2024 03:[address] LUMBAR SPINE W/ O CONT: JOVANA TRINIDAD BIRDIE [id number] -1955 F Exm Date: FEB 23, 2024@15:20 Req Phys: MAN ARREDONDO Pat Loc: [facility] PACT 2 PCP (Req'g Lo Img Loc: OUTSIDE [facility]-CT Service: Unknown Screen: Patient is unable to answer or is unsure Screen Comment: OUTSIDE STUDY (Case [id number] COMPLETE) CT LUMBAR SPINE W/O CONT (CT Detailed) CPT:76992 Reason for Study: Exam imported from outside Clinical History: Original Data for Imported Study Patient Name: JOVANA TRINIDAD Date: 1955 Sex: F Study Date: 02/23/24 Study Time: 03:20:11 Study Description: CT lumbar spine wo con Referring Physician: SRINIVAS MCFARLAND Series 1: 1 CT file, description: CT lumbar spine wo con Series 2: 1 SR file, description: [employer] Basic Text SR for HL7 Radiological Report Series 3: 1 CT file, description: Dose Report Series 4: 2 CT files, description: Networking Specialist Series 5: 111 CT files, description: Soft [...] outside study. VERIFIED BY: / *ELECTRONICALLY FILED* [facility] Feb 23, 2024 03:[address] CERVICAL SPINE W/O CONT: JOVANA TRINIDAD BIRDIE [id number] -1955 F Exm Date: FEB 23, 2024@15:18 Req Phys: MAN ARREDONDO Pat Loc: [facility] PACT 2 PCP (Req'g Lo Img Loc: OUTSIDE [facility]-CT Service: Unknown Screen: Patient is unable to answer or is unsure Screen Comment: OUTSIDE STUDY (Case [id number] COMPLETE) CT CERVICAL SPINE W/O CONT (CT Detailed) CPT:16518 Reason for Study: Exam imported from outside Clinical History: Original Data for Imported Study Patient Name: JOVANA TRINIDAD Date: 1955 Sex: F Study Date: 02/23/24 Study Time: 03:18:11 Study Description: CT cervical spine wo con Referring Physician: SRINIVAS MCFARLAND Series 1: 1 CT file, description: CT cervical spine wo con Series 2: 1 SR file, description: [employer] Basic Text SR for HL7 Radiological Report Series 3: 2 CT files, description: Networking Specialist Series 4: 1 CT file, description: Dose [...] outside study. VERIFIED BY: / *ELECTRONICALLY FILED* [facility] Feb 23, 2024 03:[address] HEAD W/O CONT: JOVANA TRINIDAD BIRDIE [id number] -1955 F Exm Date: FEB 23, 2024@15:14 Req Phys: MAN ARREDONDO Pat Loc: [facility]-ST CLR PACT 2 PCP (Req'g Lo Img Loc: OUTSIDE [facility]-CT Service: Unknown Screen: Patient is unable to answer or is unsure Screen Comment: OUTSIDE STUDY (Case [id number] COMPLETE) CT HEAD W/O CONT (CT Detailed) CPT:61838 Reason for Study: Exam imported from outside [...] Report Series 4: 1 CT file, description: Networking Specialist Series 5: 64 CT files, description: Bone [...] outside study. VERIFIED BY: / *ELECTRONICALLY FILED* [facility] Feb 23, 2024 03:06 PM HIP, UNILAT, 2-3 V IEWS RIGHT W OR W/O PELVIS: JOVANA TRINIDAD BIRDIE [id number] -1955 F Exm Date: FEB 23, 2024@15:06 Req Phys: MAN ARREDONDO Pat Loc: -[facility] PACT 2 PCP (Req'g Lo Img Loc: OUTSIDE [facility]GENERAL RAD Service: Unknown Screen: Patient is unable to answer or is unsure Screen Comment: OUTSIDE STUDY (Case [id number] COMPLETE) HIP, UNILAT, 2-3 VIEWS RIGHT W OR(RAD Detailed) CPT:22745 Reason for Study: Exam imported from outside [...] outside study. VERIFIED BY: / *ELECTRONICALLY FILED* [facility] Feb 23, 2024 03:05 PM CHEST X-RAY, 2 VIE WS: JOVANA TRINIDAD BIRDIE [id number] -1955 F Exm Date: FEB 23, 2024@15:05 Req Phys: MAN ARREDONDO Loc: - CLR PACT 2 PCP (Req'g Lo Img Loc: OUTSIDE -GENERAL RAD Service: Unknown Screen: Patient is unable to answer or is unsure Screen Comment: OUTSIDE STUDY (Case [id number] COMPLETE) CHEST X-RAY, 2 VIEWS (RAD Detailed) CPT:43349 Reason for Study: Exam imported from outside [...] outside study. VERIFIED BY: / *ELECTRONICALLY FILED* [facility] Encounter Notes: All associated encounter notes This section contains the clinical notes associated to the Encounter. Date/Time Encounter Note(s) Provider Source Feb 23, 2024 04:00 PM NONVA NOTE: LOCAL TITLE: [facility] SELF PRESENTING CARE COORD PLAN STANDARD TITLE: NONVA NOTE DATE OF NOTE: FEB 23, 2024@16:00 ENTRY DATE: MAR 04, 2024@16:01:11 AUTHOR: BRODY SAUL COSIGNER: URGENCY: STATUS: COMPLETED [facility] S[facility]F PRESENTING CARE COORD PLAN 657 STL Has ADDENDA Emergency Notification Intake Date Presenting to the Facility: Feb Method of Contact: Notified from [employer] worklist Notification ID: [id number] [facility] Referral #: [id number] [facility] Name: Hospital: [facility] Address: [facility] City: [place], State: [place] Zip Code: Phone : Community Facility Point of Contact: Name: Phone: Chief complaint: fall Primary Diagnosis: Disposition Admitted Route of Admission: ER Date of Admission: Feb Admitting Diagnosis: UTI Community Care Provider: Confirm Level of Care: No records r/t this EOC found in [facility] or [employer] Faxed for records to above hospital Alerting PCP team to this note for continuity of care /sandra/ BRODY SAUL BSN, RN REGISTERED NURSE Signed: 03/04/2024 16:03 Receipt Acknowledged By: 03/05/2024 10:12 /es/ Aime Ellis Rn, BSN REGISTERED NURSE 03/04/2024 16:41 /es/ MAN ARREDONDO 03/28/2024 ADDENDUM STATUS: COMPLETED RECORDS RECEIVED Records r/t this episode of care sent to [facility] for scanning. Alerting PCP team to this note for continuity of care. [place] PCP Team is currently coordinating patient care r/t this episode of care. /sandra/ AVIVA TAVARES RN REGISTERED NURSE Signed: 03/28/2024 13:18 Receipt Acknowledged By: * AWAITING SIGNATURE * MAN ARREDONDO * AWAITING SIGNATURE * NATALIE GUADALUPE SHERRY [facility]
--- OUTSIDE RECORDS SUMMARY | 2024-11-30 14:54 | XMS_ITS | Encounter Summary ---
Author Name [facility] [place] [facility] [place] Address [address] [place] [address] Care Team Providers Care Vascular Tech Name Role Phone MARIA ELENACAMERONID Primary Care [...] PRESCRIPT ION NONE Mar 16, 2006 NONE [id number] [place] PATIENT [facility] PREFERRED PROVIDER ORGANIZAT ION (PPO) DEPAR TMENT OF DEFEN S Mar 16, 2006 [id number] [place] PATIENT MEDICARE (WNR) MEDICARE (M) PART B Nov 14, 2020 PART B [id number] SHELBY BRA PATIENT MEDICARE (WNR) MEDICARE (M) PART A Nov 14, 2020 PART A [id number] MALAVE PATIENT Selected Encounter This section includes the information on record at [place] for the Encounter. Date/Time Encounter Type Encounter Description Reason Provider Source Oct 06, 2024 01:20 PM OFFICE O/P EST LOW 20 MIN UROLOGY CLINIC ICD-10-CM N39.0 Urinary tract infection, site not specified GRAYSON JACOB Encounter Template Text not used by [place] Assessments - Encounter Diagnoses This section includes the primary and secondary diagnoses documented for the Encounter. Date/Time Primary/Secondary Diagnosis Diagnosis Name Provider Source Oct 06, 2024 01:53 PM PRIMARY Urinary tract infection, site not specified SALOMÓNCHIDI Yesy [facility] Plan of Treatment: Future Appointments (+ 6 months) and Future Tests (+/- 45 days) The Plan of Treatment section includes future care activities for the patient from all [place] treatmentfacilities. This section includes future appointments and future orders which are active, pending or scheduled. Future Appointments This section includes appointments that were scheduled to occur 6 months from the date of the Encounter, up to a maximum of 20 appointments. The data comes from all [place] treatment facilities. Appointment Date/Time Appointment Type Appointme nt Facility Name Oct 21, 2024 11:30 AM AMBULATORY - MEDICINE [facility] Oct 28, 2024 01:45 PM AMBULATORY - MEDICINE [facility] Oct 29, 2024 01:30 PM [facility]ATORY [facility] NONE [facility] Oct 29, 2024 02:00 PM AMBULATORY - NONE [facility] Nov 26, 2024 11:00 AM AMBULATORY - MEDICINE [facility] Nov 28, 2024 09:00 AM AM[facility]ULATORY - NONE [facility] Nov 28, 2024 10:00 AM AMBULATORY - NONE [facility] Dec 24, 2024 09:30 AM AMBULATORY - NONE [facility] Dec 25, 2024 11:00 AM AMBULATORY - REHAB MEDICIN E [facility] Jan 27, 2025 01:30 PM AMBULATORY - SURGERY [facility] Feb 04, 2025 10:30 AM AMBULATORY [facility] NONE [facility] Feb 04, 2025 12:30 PM AMBULATORY - MEDICINE [facility] Mar 23, 2025 11:20 AM AMBULATORY - MEDICINE [facility] Active, Pending, and Scheduled Orders This section includes a listing of several types of active, pending, and scheduled orders, including clinic medications orders, diagnostic test orders, procedure orders and consult orders; where the start date of the order is 45 days before the date of the Encounter or 45 days after the date of theEncounter. The data comes from all [place] treatment facilities. Test Date/Time Test Type Test Details Facility Name Oct 21, 2024 12:25 PM Consult Order PT OUTPT S T JAIME STL Cons Hairspring Ii Inspector's Choice [facility] Lab Results: +/- 30 days of the encounter This section includes the Chemistry and Hematology Lab Results on record with [place] for the patient. Radiology Reports and Pathology Reports are provided separately, in subsequent sections. Lab Results This section contains the Chemistry/Hematology Results that were resulted 30 days before or 30 daysafter the date of the Encounter. Date/Time Source Result Type Result - Unit Interpretation Reference Range Specimen Type Comment Oct 28, 2024 12:12 PM [facility] COMPREHENSIVE METABOLIC PANEL PLASMA Specimen Type: PLASMA Comment: No hemolysis noted. Ordering Provider: MAN ARREDONDO Report Released Date/Time: Oct 21, 2024 12:25 PM Reporting Lab: [facility] [address] [facility] [id number] Performing Lab: [address] [id number] CREATININE 2.53 mg/dL H 0.6-1.1 UREA NITROGEN [...] Height Weight Body Mass Index Source Oct 06, 2024 01:28 PM 97.4 F 76 /min 154/93 mm[Hg] 16 /min 100 % 0 64 in 133.9 lb 23 [facility] Social History: Smoking Status (Most current) and Tobacco Use (All prior to encounter date) This section includes the most current, and the historical, smoking and tobacco- related health factors from the [place] facility where the Encounter took place. Current Smoking Status This section includes the most current smoking, or tobacco-related health factor, from the [place] facility where the Encounter took place. Date/Time Current Smoking Status Comment Facil ity Mar 28, 2024 12:54 PM ORYX ADMIT TOBACCO SCREEN REFUSED [facility] Tobacco Use History This section includes a history of the smoking, or tobacco-related health factors, that were collected on or before the date of the Encounter. The data comes from the [place] facility where the Encounter took place. Date/Time Smoking Status/Tobacco Use Comment F acility Sep 24, 2023 01:20 PM VA-TOBACCO FORMER USER [facility] Sep 24, 2023 01:20 PM VA-TOBACCO QUIT 15 YRS OR MORE [facility] Apr 06, 2021 07:54 PM ORYX ADMIT TOBACCO SCREEN NO [facility] Jul 26, 2020 09:33 AM VA-TOBACCO FORMER USER [facility] Jul 26, 2020 09:33 AM VA-TOBACCO QUIT 15 YRS OR MORE [facility] Aug 13, 2019 05:31 PM ORYX ADMIT TOBACCO SCREEN NO [facility] Nov 26, 2008 11:49 AM QUIT TOBACCO >7 YEARS AGO [facility] Advance Directives: All historical and current Section Date Range: From patient's date of to the date document was created. This section includes ALL of a patient's completed or amended [place] Advance and Rescinded Directives. The entries below indicate that a directive exists for the patient, but an actual copy is not included with this document. The data comes from all [place] facilities. Date Advance Directives Provider Source Nov 18, 2021 STATE-AUTHORIZED POR TABLE ORDERS ELIDIA NOONAN [facility] Radiology Reports: +/- 30 days of [...] the Encounter. The data comes from all [place] treatment facilities. Date/Time Radiology Report Provider Source Oct 28, 2024 12:17 PM SHOULDER,LEFT,2 OR MORE VIEWS: JOVANA TRINIDAD BIRDIE [id number] -[id number] Exm Date: OCT 28, 2024@12:17 Req Phys: MAN ARREDONDO Pat Loc: -[facility] PACT 2 PCP (Req'g Lo Img Loc: -MAIN RADIOLOGY SUITE Service: [facility], [facility] [address] [place] [address] (Case [id number] COMPLETE) SHOULDER,LEFT,2 OR MORE VIEWS (RAD Detailed) CPT:47904 Proc Modifiers : LEFT Reason for Study: left shoulder pain Clinical History: Report Status: Verified Date Reported: OCT 31, 2024 Date Verified: OCT 31, 2024 Medical Transport Specialist E-Sig:/ES/MARYANN WAKEFIELD Report: Case [id number]. SHOULDER,LEFT,2 OR MORE VIEWS. Comparison: 08/15/2023 Findings: Postoperative changes of reverse left shoulder arthroplasty are redemonstrated. The hardware appears intact without evidence of loosening. There is no evidence of fracture or dislocation. No bone destruction is present. Moderate acromioclavicular osteoarthritis is redemonstrated. The visible portions of the left lung are clear. Impression: No significant interval change. Primary Interpreting Staff: MARYANN WAKEFIELD MD (Medical Transport Specialist) /MARYANN MCGUIRE [facility] Encounter Notes: All associated encounter notes This section contains the clinical notes associated to the Encounter. Date/Time Encounter Note(s) Provider Source Oct 06, 2024 01:43 PM UROLOGY NOTE: LOCAL TITLE: UROLOGY NOTE STANDARD TITLE: UROLOGY NOTE DATE OF NOTE: OCT 06, 2024@13:43 ENTRY DATE: OCT 06, 2024@13:43:09 AUTHOR: CHIDI LORENZANA EXP COSIGNER: CHRISTOFER JACOB URGENCY: STATUS: COMPLETED CHIEF COMPLAINT, HPI, EXAM & DATA CC: LUTS HPI: 68 yo M with LUTS - two documented e.coli UTIs in 04/2024 and 05/2024 - had gross hematuria in 2020 - 06/2024 cysto unremarkable - put on vag estrogen at last visit and reports she has done well since she has started them - applying twice a week and feels much better - no UTIs since starting ti - had partial hysterectomy 28 years ago - denies any recent hematuria, dysuria right chronic hydro - stable over years, most recent RBUS 03/2025 mild ROS/PMH Denies F/C/N/V/CP/SOB Remainder of PMH listed below and reviewed? Yes TARGETED PHYSICAL EXAM: Gen: NAD Resp: NLB CREATININE:CREATININE 2.24 H mg/dL 07/18/2024 11:46 PSA: No PSA EO data found IMAGING: RBUS Impression: Mild right hydronephrosis. No renal calculi or solid renal mass. Bilateral renal parenchymal thinning may represent chronic renal disease. 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 - improved with vag estrogen - contiue twice a week FOLLOW-UP: RTC 1 yr (MORE INFORMATION) * LABS--------- PSA Trend: No PSA (LAST 10 5Y) EO data found BMP: SODIUM 140 mEq/L 07/18/2024 11:46 POTASSIUM 4.5 mEq/L 07/18/2024 11:46 CHLORIDE 105 mEq/L 07/18/2024 11:46 UREA NITROGEN 41.7 H mg/dL 07/18/2024 11:46 CREATININE 2.24 H mg/dL 07/18/2024 11:46 CALCIUM 8.2 L mg/dL 07/18/2024 11:46 CARBON DIOXIDE 23 mEq/L 07/18/2024 11:46 GLUCOSE [...] 11:10 ATYPICAL LYMPHOCYTES 5.5 % 03/28/2024 11:10 UA: URINE COLOR Yellow 06/13/2024 09:41 APPEARANCE Ex.Turbid 06/13/2024 09:41 U.PH 6.5 06/13/2024 09:41 U.BILIRUBIN Negative mg/dL 06/13/2024 09:41 U.NITRITE Negative mg/dL 06/13/2024 09:41 URINE RBC/HPF 32 H /HPF 06/13/2024 09:41 URINE WBC/HPF >182 H /HPF 06/13/2024 09:41 WBC Clumps MANY /HPF 06/13/2024 09:41 BACTERIA FEW /HPF 06/13/2024 09:41 SQUAMOUS EPITH. 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 (SNOMED CT 821823750330703) 6) Depressive Disorder NOS * (ICD-9-CM 311./300.4) 7) Gynecologic Exam 8) OA - Osteoarthritis (SNOMED CT 735531295) 9) Skin tag (SNOMED CT 356786019) 10) Nonvenomous insect bite (SNOMED CT 715543265) 11) Foot callus (SNOMED CT 193702699) 12) Verruca plantaris (SNOMED CT 76380540) 13) Edema (SNOMED CT 184223058) 14) Cramp (SNOMED CT 91064587) 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 NEW DOSE - RENAL ADJUSTED 9) ESTRADIOL 0.01% VAG CREAM INSERT 2 GM VAGINALLY ONCE A DAY ACTIVE FOR 14 DAYS, THEN INSERT 1 GM ONCE A DAY FOR 7 DAYS (MEASURE DOSE WITH CALIBRATED PLASTIC APPLICATOR IN BOX) Indication: FOR VULVAR/VAGINAL ATROPHY IN MENOPAUSE 10) ESTRADIOL 10MCG VAG TAB APPLICATOR INSERT 1 TABLET VAGINALLY ACTIVE ONCE A DAY Indication: GENITOURINARY SYNDROME OF MENOPAUSE 11) FERROUS GLUCONATE 324MG TAB TAKE ONE TABLET BY MOUTH ONCE A ACTIVE DAY FOR IRON SUPPLEMENTATION. 12) LOPERAMIDE HCL 2MG CAP TAKE ONE CAPSULE BY MOUTH EVERY DAY ACTIVE NEEDED FOR DIARRHEA. 13) MELATONIN 3MG CAP/TAB TAKE TWO CAP/TAB BY MOUTH AT BEDTIME ACTIVE FOR SLEEP 14) MOXIFLOXACIN (EQV-VIGAMOX) 0.5% OPH SOLN INSTILL 1 DROP IN HOLD RIGHT EYE FOUR TIMES A DAY Indication: FOR BACTERIAL EYE INFECTION 15) TRAMADOL HCL 50MG TAB TAKE 1 TABLET BY MOUTH AT BEDTIME ACTIVE Indication: FOR PAIN Active Non-VA Medications Status 1) Non-VA FISH OIL 1000MG (500MG DHA/EPA) CAP 1000MG BY MOUTH ACTIVE TWICE A DAY 2) Non-VA MAGNESIUM OXIDE TAB 250MG BY MOUTH TWICE A DAY ACTIVE 17 Total Medications Allergies: AMLODIPINE /sandra/ CHIDI LORENZANA resident Signed: 10/06/2024 13:53 /es/ CHRISTOFER JACOB MD Staff Physician, Urology Cosigned: 10/06/2024 23:50 CHIDI LORENZANA [facility]
--- OUTSIDE RECORDS SUMMARY | 2024-11-30 14:54 | XMS_ITS | Continuity of Care Document ---
Author Name DOD-MS Organization DOD-MS Care Team Providers Care Ward Helper Name Role Phone DOD-MS Unavailable Unavailable Problems Combined list of problems from 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 It does not include entries that were removed or entered in error. Problem Status Onset Date Problem Type Date of Resolution Comments Source visit for: pre-employment physical Inactive Condition DoD visit for: screening exam Active Condition DoD RENAL INSUFFICIENCY Active Condition Copy of labs given to fax to off base provider. Many items still pending. DoD ESSENTIAL HYPERTENSION Active Condition Well controllle d today. DoD visit for: administrative purpose Inactive Condition spoke to pt again....she will check lipids in one year and verbalized an understanding of the plan for her. she plan to get blood drawn next week to check her renal func. DoD visit for: screening malignant neoplasm colon Inactive Condition DoD visit for: screening exam lipoid disorders Inactive Condition Discussed chol control to prevent atherosclerosis and coronary artery disease. Discussed occasional finding of calcified atherosclerotic plaques, leading to emerging technology that uses radiology studies/CT scans to eval for coronary calcifications. Re DoD visit for: occupational health / fitness exam Inactive Condition [employer] DoD visit for: postsurgical exam Inactive Condition Doing well s/p bilateral PRC's for chronic SLAC bilateral.PLAN:Ac tivity as toleratedSplint prn heavy activityRTC prn DoD Breast Palpation Mass Active Condition DoD BREAST LUMP OR MASS Inactive Condition D oD BACKACHE Inactive Condition DoD diarrhea Inactive Condition DoD visit for: administrative purpose Active Condition DoD Occupational Therapy Inactive Condition DoD joint pain, localized Active Condition DoD joint pain, localized in the wrist Active Condition DoD HYPOPARATHYROIDISM Active Condition R enew rocaltrol BID #180 rf3 DoD insomnia Active Condition Rx: Rozere m 8 mg at bedtime as needed #30 rf0. Follow up after sleep study or as needed. DoD ARTHRITIS Active Condition Pt's renal hx complicates her arthritis tx. Referral placed to facilitate follow up with rheumatology. Wrist brace given to help support her wrist during work hours. 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 (SNOMED CT 161923218637648) Active Condition [facility] Chronic kidney disease stage 3 Active Condition [facility] Chronic kidney disease stage 4 Active Condition [facility] Cramp (SNOMED CT 14967694) Active Condition [facility] 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) Active Condition [facility] Dementia Active Condition [facility] Depressive Disorder NOS * (ICD-9-CM 311./300.4) Active Condition [facility] Edema (SNOMED CT 384844989) Active Condition [facility] Foot callus (SNOMED CT 950062708) Active Condition [facility] Gynecologic Exam Active Condition [facility] Hearing loss * (ICD-9-CM 389.9) Active Condition [facility] HTN - Hypertension (SNOMED CT 48886364) Active Condition [facility] Hypercholesterolemia , 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 Condition [facility] Kidney stone Active Condition [facility] Myelopathy Active Condition [facility] Nephrocalcinosis Active Condition [facility] Nonvenomous insect bite (SNOMED CT 910628818) Active Condition [facility] OA - Osteoarthritis (SNOMED CT 235841008) Active Condition [facility] Skin tag (SNOMED CT 024682599) Active Condition [facility] Unsteadiness present Active Condition [facility] Verruca plantaris (SNOMED CT 43109266) Active Condition [facility] Vitamin B>12< deficiency anaemia Active Condition [facility] Weakness Active Condition [facility] Diagnosis: ICD-10-CM N18.4 Chronic kidney disease, stage 4 (severe) Active Diagnosis [facility] Diagnosis: ICD-10-CM K03.6 Deposits [accretions] on teeth Active Diagnosis [facility] Diagnosis: ICD-10-CM K08.499 Partial loss of teeth due to oth cause, unspecified class Active Diagnosis [facility] Diagnosis: ICD-10-CM L82.1 Other seborrheic keratosis Active Diagnosis [facility] Diagnosis: ICD-10-CM N39.0 Urinary tract infection, site not specified Active Diagnosis [facility] Diagnosis: ICD-10-CM K52.831 Collagenous colitis Active Diagnosis [facility] Diagnosis: ICD-10-CM K03.81 Cracked tooth Active Diagnosis [facility] Diagnosis: ICD-10-CM R31.0 Gross hematuria Active Diagnosis [facility] Diagnosis: ICD-10-CM H35.62 Retinal hemorrhage, left eye Active Diagnosis [facility] Diagnosis: ICD-10-CM Z87.440 Personal history of urinary (tract) infections Active Diagnosis [facility] Diagnosis: ICD-10-CM M19.90 Unspecified osteoarthritis, unspecified site Active Diagnosis [facility] Diagnosis: ICD-10-CM R35.0 Frequency of micturition Active Diagnosis [facility] Diagnosis: ICD-10-CM Z71.9 Counseling, unspecified Active Diagnosis [facility] Diagnosis: ICD-10-CM 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s classified elsewhere Active Diagnosis [facility] Diagnosis: ICD-10-CM Z71.81 Spiritual or mormonism counseling Active Diagnosis [facility] Admit Reason: WEAKNESS Active Diagnosis [facility] Diagnosis: ICD-10-CM R26.89 Other abnormalities of gait and mobility Active Diagnosis [facility] Diagnosis: ICD-10-CM F03.B0 Unspecified dementia, moderate, without beh/psych/mood/anx Active Diagnosis [facility] Diagnosis: ICD-10-CM Z01.818 Encounter for other preprocedural examination Active Diagnosis [facility] Diagnosis: ICD-10-CM Z12.11 Encounter for screening for malignant neoplasm of colon Active Diagnosis [facility] Diagnosis: ICD-10-CM Z96.1 Presence of intraocular lens Active Diagnosis [facility] Diagnosis: ICD-10-CM I10 Essential (primary) hypertension Active Diagnosis [facility] Diagnosis: ICD-10-CM Z91.89 Oth personal risk factors, not elsewhere classified Active Diagnosis [facility] Diagnosis: ICD-10-CM H25.13 Age-related nuclear cataract, bilateral Active Diagnosis [facility] Diagnosis: ICD-10-CM H25.811 Combined forms of age-related cataract, right eye Active Diagnosis [facility] Diagnosis: ICD-10-CM H25.813 Combined forms of age-related cataract, bilateral Active Diagnosis [facility] Diagnosis: ICD-10-CM Z04.89 Encounter for examination and observation for oth reasons Active Diagnosis [facility] Diagnosis: ICD-10-CM M75.121 Complete rotatr-cuff tear/ruptr of r shoulder, not trauma Active Diagnosis [facility] Diagnosis: ICD-10-CM K02.7 Dental root caries Active Diagnosis [facility] Diagnosis: ICD-10-CM R26.9 Unspecified abnormalities of gait and mobility Active Diagnosis [facility] Medications Combined list of outpatient medications from 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Medications provided include 1) outpatient medications from the last 15 months, and 2) patient-reported medications. Medication Details Route Status Patient Instructions Prescription Expires Prescription Number Last Dispense Date Ordering Provider Order Date Order Qty Source ALLOPURINOL 100MG TAB TAKE ONE TABLET BY MOUTH ONCE A DAY FOR GOUT. TAKE WITH PLENTY OF WATER. ORAL ACTIVE 09/10/2025 [id number] EMILY HILL 2024 90 [facility] ALLOPURINOL 100MG TAB TAKE ONE TABLET BY MOUTH ONCE A DAY FOR GOUT. TAKE WITH PLENTY OF WATER. ORAL DISCONT INUED 12/05/2024 [id number] 5 EMILY HILL 2023 90 [facility] ALLOPURINOL 100MG TAB TAKE ONE TABLET BY MOUTH ONCE A DAY FOR GOUT. TAKE WITH PLENTY OF WATER. ORAL DISCONT INUED 08/27/2024 [id number] 4 EMILY HILL 2023 90 [facility] ATENOLOL 100MG TAB TAKE ONE-HALF TABLET BY MOUTH ONCE A DAY FOR HIGH BLOOD PRESSURE DO NOT TAKE ANTACIDS OR CALCIUM SUPPLEME NTS WITHIN 2 HRS OF TAKING THIS MEDICATI ON. ORAL ACTIVE 07/19/2025 [id number] MERRILL HARRIS I 2024 45 [facility] ATENOLOL 100MG TAB TAKE ONE-HALF TABLET BY MOUTH ONCE A DAY (DO NOT TAKE ANTACIDS OR CALCIUM SUPPLEME NTS WITHIN 2 HRS OF TAKING THIS MEDICATI ON) ORAL DISCONT INUED BY PROVIDE R 09/23/2024 [id number] 4 MARIA ELENAIN GRID D 2023 45 [facility] ATORVASTATI N CA 40MG TAB TAKE ONE-HALF TABLET BY MOUTH EVERY EVENING FOR CHOLESTE ROL. REPORT ANY UNEXPLAI JOAQUÍN MUSCLE PAIN/WEA KNESS TO PROVIDER . ORAL ACTIVE 10/21/2025 [id number] 5 GARCIA,A RMIDA A 2024 45 [facility] ATORVASTATI N CA 40MG TAB TAKE ONE-HALF TABLET BY MOUTH EVERY EVENING FOR CHOLESTE ROL. REPORT ANY UNEXPLAI JOAQUÍN MUSCLE PAIN/WEA KNESS TO PROVIDER . ORAL DISCONT INUED 12/05/2024 [id number] 5 MARIA ELENAIN GRID D 2023 45 [facility] ATORVASTATI N CA 40MG TAB TAKE ONE-HALF TABLET BY MOUTH EVERY EVENING FOR CHOLESTE ROL. REPORT ANY UNEXPLAI JOAQUÍN MUSCLE PAIN/WEA KNESS TO PROVIDER . ORAL DISCONT INUED 04/16/2024 [id number] 4 MARIA ELENA,IN GRID D 2023 45 [facility] BUDESONIDE 3MG CAP,EC TAKE ONE CAPSULE BY MOUTH EVERY MORNING ORAL ACTIVE 06/11/2025 [id number] 5 [facility] CHAEL E 2024 90 [facility] BUDESONIDE 3MG CAP,EC TAKE ONE CAPSULE BY MOUTH EVERY MORNING ORAL DISCONT INUED 08/06/2024 [id number] 5 FRANCISCA,NM CHAEL E 2023 90 [facility] BUPROPION HCL 150MG 12HR TAB,SA TAKE ONE TABLET BY MOUTH TWICE A DAY SWALLOW WHOLE - DO NOT CRUSH OR CHEW. ORAL ACTIVE 01/19/2025 [id number] 5 MARIA ELENA,IN GRID D 2024 180 [facility] BUPROPION HCL 150MG 12HR TAB,SA TAKE ONE TABLET BY MOUTH TWICE A DAY SWALLOW WHOLE - DO NOT CRUSH OR CHEW. ORAL DISCONT INUED 2024 [id number] 5 MARIA ELENA,IN GRID D 2024 180 [facility] BUPROPION HCL 150MG 12HR TAB,SA TAKE ONE TABLET BY MOUTH TWICE A DAY SWALLOW WHOLE - DO NOT CRUSH OR CHEW. ORAL DISCONT INUED 07/13/2024 [id number] 4 MARIA ELENA,IN GRID D 2023 180 [facility] BUPROPION HCL 150MG 12HR TAB,SA TAKE ONE TABLET BY MOUTH TWICE A DAY SWALLOW WHOLE - DO NOT CRUSH OR CHEW. ORAL DISCONT INUED 01/23/2024 [id number] 4 MARIA ELENA,IN GRID D 2023 180 [facility] BUPROPION HCL 150MG 12HR TAB,SA TAKE ONE TABLET BY MOUTH TWICE A DAY SWALLOW WHOLE - DO NOT CRUSH OR CHEW. ORAL DISCONT INUED 01/14/2024 [id number] 4 MARIA ELENAIN GRID D 2023 180 [facility] CALCITRIOL 0.25MCG CAP TAKE ONE CAPSULE BY MOUTH THREE TIMES PER WEEK ORAL ACTIVE 09/03/2025 [id number] 5 EMILY HILL 2024 39 [facility] CALCITRIOL 0.25MCG CAP TAKE ONE CAPSULE BY MOUTH THREE TIMES PER WEEK ORAL DISCONT INUED 12/05/2024 [id number] 5 EMILY HILL 2023 39 [facility] CALCITRIOL 0.25MCG CAP TAKE ONE CAPSULE BY MOUTH THREE TIMES PER WEEK ORAL DISCONT INUED 01/30/2024 [id number] 4 EMILY HILL 2022 39 [facility] CALCIUM CARBONATE 500MG TAB,CHEWABL E CHEW AND SWALLOW ONE TABLET BY MOUTH THREE TIMES A DAY WITH MEALS AND CHEW AND SWALLOW ONE TABLET AT BEDTIME ORAL ACTIVE 10/22/2025 [id number] 5 MARIA ELENAIN GRID D 2024 300 [facility] CALCIUM CARBONATE 500MG TAB,CHEWABL E CHEW AND SWALLOW ONE TABLET BY MOUTH THREE TIMES A DAY WITH MEALS AND CHEW AND SWALLOW ONE TABLET AT BEDTIME ORAL DISCONT INUED 12/05/2024 [id number] 5 EMILY HILL 2023 300 [facility] CALCIUM CARBONATE 500MG TAB,CHEWABL E CHEW AND SWALLOW ONE TABLET BY MOUTH THREE TIMES A DAY WITH MEALS AND CHEW AND SWALLOW ONE TABLET AT BEDTIME ORAL DISCONT INUED 01/30/2024 [id number] EMILY HILL 2022 300 [facility] [employer] CEFPODOXIME PROXETIL 200MG TAB TAKE ONE TABLET BY MOUTH EVERY 24 HOURS (ONCE A DAY) TAKE WITH FOOD. TAKE UNTIL GONE UNLESS OTHERWIS E DIRECTED . ORAL 06/08/2024 [id number] 5 BISWASARELIS ODOMOLA 2024 5 [facility] CETIRIZINE HCL 10MG TAB TAKE ONE-HALF TABLET BY MOUTH ONCE A DAY FOR ALLERGY SYMPTOMS . NEW DOSE - RENAL ADJUSTED ORAL SUSPEND ED 10/22/2025 [id number] 5 MARIA ELENAIN GRID D 2024 45 [facility] CETIRIZINE HCL 10MG TAB TAKE ONE-HALF TABLET BY MOUTH ONCE A DAY FOR ALLERGY SYMPTOMS . 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 (MEASURE DOSE WITH CALIBRAT ED PLASTIC APPLICAT OR IN BOX) VAGINA L DISCONT INUED BY FAY R 06/14/2025 [id number] JULIAN MEIER 2024 42.5 [facility] ESTRADIOL 10MCG TAB,VAG,ZARIA LICATOR INSERT 1 TABLET VAGINALL Y TWO TIMES PER WEEK VAGINA L ACTIVE 10/07/2025 [id number] 5 CHRISTOFER MANSFIELD 2024 24 [facility] ESTRADIOL 10MCG TAB,VAG,ZARIA LICATOR INSERT 1 TABLET VAGINALL Y ONCE A DAY GENITOUR INARY SYNDROME OF MENOPAUS E VAGINA L DISCONT INUED (EDIT) 10/07/2024 [id number] 5 Oscar ZAMUDIO 2024 90 [facility] FERROUS GLUCONATE 324MG TAB TAKE ONE TABLET BY MOUTH ONCE A DAY FOR IRON SUPPLEME NTATION. ORAL ACTIVE 12/05/2024 [id number] 5 EMILY HILL 2023 100 [facility] RHIANNONSCHUYLER Yost FERROUS GLUCONATE 324MG TAB TAKE ONE TABLET BY MOUTH ONCE A DAY FOR IRON SUPPLEME NTATION. ORAL DISCONT INUED 12/05/2023 [id number] 4 EMILY HILL 2022 100 [facility] [employer] FISH OIL 1000MG (500MG DHA/EPA) CAP,ORAL TAKE 1 CAPSULE BY MOUTH TWICE A DAY ORAL ACTIVE TAMEKA SAHU 2013 [facility] LIDOCAINE 5% PATCH APPLY 1 PATCH TO SKIN SITE ONCE A DAY FOR LOCAL ANESTHES IA APPLY PATCH AND PRESS FIRMLY FOR 10-15 SECONDS. KEEP ON FOR 12 HOURS THEN REMOVE PATCH FOR 12 HOURS. TRANSD ERMAL ACTIVE 10/22/2025 [id number] 5 MARIA ELENAIN GRID D 2024 30 [facility] LISINOPRIL 10MG TAB TAKE ONE-HALF TABLET BY MOUTH ONCE A DAY ORAL ACTIVE 11/27/2025 [id number] EMILY HILL HEENA 2024 45 [facility] SUSIE [employer] LOPERAMIDE HCL 2MG CAP TAKE ONE CAPSULE BY MOUTH EVERY DAY NEEDED FOR DIARRHEA . ORAL ACTIVE 09/29/2025 [id number] 5 MARIA ELENAIN GRID D 2024 30 [facility] LOPERAMIDE HCL 2MG CAP TAKE ONE CAPSULE BY MOUTH EVERY DAY NEEDED FOR DIARRHEA . ORAL DISCONT INUED 07/29/2025 [id number] 5 MARIA ELENAIN GRID D 2024 30 [facility] LOPERAMIDE HCL 2MG CAP TAKE ONE CAPSULE BY MOUTH EVERY DAY NEEDED FOR DIARRHEA . ORAL DISCONT INUED 05/19/2025 [id number] 5 MARIA ELENAIN GRID D 2024 30 [facility] LOPERAMIDE HCL 2MG CAP TAKE ONE CAPSULE BY MOUTH EVERY DAY NEEDED FOR DIARRHEA . ORAL DISCONT INUED 03/05/2025 [id number] 4 MARIA ELENA,IN GRID D 2023 30 [facility] LOPERAMIDE HCL 2MG CAP TAKE ONE CAPSULE BY MOUTH EVERY DAY NEEDED FOR DIARRHEA . ORAL DISCONT INUED 12/24/2024 [id number] 4 MARIA ELENA,IN GRID D 2023 30 [facility] LOPERAMIDE HCL 2MG CAP TAKE ONE CAPSULE BY MOUTH EVERY DAY NEEDED FOR DIARRHEA . ORAL DISCONT INUED 10/21/2024 [id number] 4 MARIA ELENA,IN GRID D 2023 30 [facility] LOPERAMIDE HCL 2MG CAP TAKE ONE CAPSULE BY MOUTH EVERY DAY NEEDED FOR DIARRHEA . ORAL DISCONT INUED 08/27/2024 [id number] 4 MARIA ELENA,IN GRID D 2023 30 [facility] MAGNESIUM OXIDE TAB TAKE 250MG BY MOUTH TWICE A DAY ORAL ACTIVE EMILY HILL 2021 [facility] MELATONIN 3MG CAP/TAB TAKE TWO CAP/TAB BY MOUTH AT BEDTIME FOR SLEEP ORAL ACTIVE 06/23/2025 [id number] 5 MARIA ELENA,IN GRID D 2024 180 [facility] MELATONIN 3MG CAP/TAB TAKE TWO CAP/TAB BY MOUTH AT BEDTIME FOR SLEEP ORAL DISCONT INUED 07/30/2024 [id number] 4 MARIA ELENA,IN GRID D 2023 180 [facility] MOXIFLOXACI N HCL (EQV-VIGAMO X) 0.5% SOLN,OPH INSTILL 1 DROP IN RIGHT EYE FOUR TIMES A DAY FOR BACTERIA L EYE INFECTIO N OPHTHA LMIC DISCONT INUED 11/01/2024 [id number] 2023 3 [facility] MOXIFLOXACI N HCL (EQV-VIGAMO X) 0.5% SOLN,OPH INSTILL 1 DROP IN RIGHT EYE FOUR TIMES A DAY FOR BACTERIA L EYE INFECTIO N OPHTHA LMIC 11/13/[id number] [facility] 2023 3 [facility] PREDNISOLON E ACETATE 1% SUSP,OPH INSTILL 1 DROP IN RIGHT EYE FOUR TIMES A DAY FOR EYE INFLAMMA TION OPHTHA LMIC DISCONT INUED BY FAY R 11/13/20[id number] [facility] 2023 5 [facility] PREDNISOLON E ACETATE 1% SUSP,OPH INSTILL 1 DROP IN RIGHT EYE FOUR TIMES A DAY FOR EYE INFLAMMA TION OPHTHA LMIC DISCONT INUED 11/01/20[id number] [facility] 2023 5 [facility] SULFAMETHOX AZOLE 400MG/TRIME THOPRIM 80MG TAB TAKE 1 TABLET BY MOUTH EVERY 12 HOURS FOR URINARY TRACT INFECTIO N TAKE WITH WATER/AV OID SUNLIGHT . ORAL 07/16/2024 [id number] JULIAN MEIER 2024 28 [facility] TRAMADOL HCL 50MG TAB TAKE 1 TABLET BY MOUTH AT BEDTIME FOR PAIN ORAL ACTIVE 12/03/2024 [id number] 5 MARIA ELENAIN GRID D 2024 30 [facility] TRAMADOL HCL 50MG TAB TAKE 1 TABLET BY MOUTH AT BEDTIME ORAL DISCONT INUED 09/19/2024 [id number] 5 MARIA ELENAIN GRID D 2024 30 [facility] TRAMADOL HCL 50MG TAB TAKE 1 TABLET BY MOUTH AT BEDTIME FOR PAIN ORAL DISCONT INUED 09/10/2024 [id number] 5 MARIA ELENAIN GRID D 2024 30 [facility] TRAMADOL HCL 50MG TAB TAKE 1 TABLET BY MOUTH AT BEDTIME ORAL DISCONT INUED 06/29/2024 [id number] 5 MARIA ELENA,IN GRID D 2024 30 [facility] TRAMADOL HCL 50MG TAB TAKE 1 TABLET BY MOUTH AT BEDTIME FOR PAIN ORAL 10/09/2024 [id number] 5 MARIA ELENA,IN GRID D 2024 30 [facility] TRAMADOL HCL 50MG TAB TAKE 1 TABLET BY MOUTH AT BEDTIME ORAL 07/22/2024 [id number] 5 MARIA ELENA,IN GRID D 2024 30 [facility] TRAMADOL HCL 50MG TAB TAKE 1 TABLET BY MOUTH FOUR TIMES A DAY NEEDED FOR PAIN ORAL 03/12/2024 [id number] 4 MARIA ELENA,IN GRID D 2023 120 [facility] Allergies, Adverse Reactions, Alerts Combined list of allergies from Department of [facility] and [facility] facilities. It does not include entries that were removed or entered in error. Substance Category Reaction Severity Reaction type Status Date Reported Comments Source AMLODIPINE Propensity to adverse reactions to drug (finding) Swelling active 3 [facility] [employer]CIUM [employer] Drug allergy (disorder) Swelling active 3 [facility] Immunizations Combined list of available immunizations from the Department of [facility] and [facility] facilities. Immunization Series Date Given Administered By Site Reaction Lot Number CVX Code Drug Wood Model Maker Status Comments Source COVID-19 (PFIZER), MRNA, LNP-S, PF, PATTIE-SUCROSE, 30 MCG/0.3 ML (AGES 12+ YEARS) 2023 MALA ROPER RIGHT DELTO ID [id number] 309 complet ed [facility] AT [facility] INFLUENZA, HIGH-DOSE, TRIVALENT, PF 2023 MALA ROPER LEFT DELTO ID [id number] 135 complet ed [facility] AT [facility] PNEUMOCOCCAL POLYSACCHARID E PPV23 2022 BOSSMAN STARKEY A RIGHT DELTO ID [id number] 33 complet ed Completed Series, [facility] AT [facility] INFLUENZA, HIGH-DOSE, QUADRIVALENT 2022 MONICA ROQUE RIGHT DELTO ID [id number] 197 complet ed Completed Series, [facility] AT [facility] N COVID-19 (PFIZER), MRNA, LNP-S, PF, PATTIE-SUCROSE, 30 MCG/0.3 ML (AGES 12+ YEARS) 1 2022 MONICA ROQUE L LEFT DELTO ID [id number] 309 complet ed [facility] AT [facility] ZOSTER RECOMBINANT 2 2022 LIAN,NAVMichelle LEFT DELTO ID [id number] 187 complet ed [facility] AT [place], [id number] 10/01/23 [facility] COVID-19 (MODERNA), MRNA, LNP-S, BIVALENT BOOSTER, PF, 50 MCG/0.5 ML OR 25MCG/0.25 ML DOSE 1 2021 229 complet ed MOD; [id number]; 3 [facility] ZOSTER RECOMBINANT 1 2021 187 complet ed [facility] COVID-19 (MODERNA), MRNA, LNP-S, PF, 100 MCG/0.5ML DOSE OR 50 MCG/0.25ML DOSE 4 2021 NONE 207 complet ed MOD; [id number]; 2 [facility] COVID-19 (MODERNA), MRNA, LNP-S, PF, 100 MCG OR 50 MCG DOSE 3 2020 207 complet ed [facility] N INFLUENZA VACCINE, QUADRIVALENT, ADJUVANTED 2020 205 complet ed [facility] TDAP 2020 115 complet ed [facility] HEP B, ADULT 3 2020 NONE 43 complet ed [facility] N COVID-19 (MODERNA), MRNA, LNP-S, PF, 100 MCG/0.5 ML DOSE 2 2020 207 complet ed MOD; [id number]; 1 [facility] COVID-19 (MODERNA), MRNA, LNP-S, PF, 100 MCG/0.5 ML DOSE 1 2020 207 complet ed MOD; [id number]; 1 [facility] HEP B, ADULT 2 2019 NONE 43 complet ed [facility] HEP B, ADULT 1 2019 NONE 43 complet ed [facility] N INFLUENZA, INJECTABLE, QUADRIVALENT, PRESERVATIVE FREE 2019 150 complet ed [facility] INFLUENZA, INJECTABLE, QUADRIVALENT, PRESERVATIVE FREE 2018 150 complet ed [facility] INFLUENZA, INJECTABLE, QUADRIVALENT, PRESERVATIVE FREE 2017 150 complet ed [facility] INFLUENZA, INJECTABLE, QUADRIVALENT, PRESERVATIVE FREE 2016 150 complet ed [facility] PNEUMOCOCCAL POLYSACCHARID E PPV23 2016 33 complet ed [facility] ZOSTER LIVE 2016 121 complet ed [facility] PNEUMOCOCCAL CONJUGATE PCV 13 2016 133 complet ed [facility] INFLUENZA, SEASONAL, INJECTABLE, PRESERVATIVE FREE 2016 140 complet ed Left Deltoid [facility] N INFLUENZA, SEASONAL, INJECTABLE, PRESERVATIVE FREE 2014 140 complet ed [facility] INFLUENZA, SEASONAL, INJECTABLE, PRESERVATIVE FREE 2013 140 complet ed [facility] INFLUENZA, UNSPECIFIED FORMULATION 2012 88 complet ed [facility] INFLUENZA, UNSPECIFIED FORMULATION 2011 88 complet ed [facility] INFLUENZA, UNSPECIFIED FORMULATION 2010 88 complet ed [facility] INFLUENZA, UNSPECIFIED FORMULATION 2010 88 complet ed [facility] TDAP 2009 115 complet ed Left Deltoid [facility] NOVEL INFLUENZA-H1N 1-09, ALL FORMULATIONS 2009 128 complet ed [employer] MDSS/SG S R INFLUENZA, UNSPECIFIED FORMULATION 2008 88 complet ed [facility] INFLUENZA, UNSPECIFIED FORMULATION 2007 88 complet ed [facility] PNEUMOCOCCAL, UNSPECIFIED FORMULATION 2006 109 complet ed does not remember date [facility] INFLUENZA, UNSPECIFIED FORMULATION 2004 88 complet ed [facility] Results Combined list of recent chemistry, hematology and other laboratory results from [employer], ranging from 15 months to all on record, depending upon the facility. Order Name Results Value Reference Range Date Interpretation Specimen Comments Source CBC LEUKOCYTES [#/VOLUME] IN BLOOD BY AUTOMATED COUNT 9.9 10*3/u L 3.6 - 11.2 11/26 Specimen Type: BLOOD No comment entered. Ordering Provider: HOWIE LIN Report Released Date/Time: Nov 26, 2024 08:04 AM Reporting Lab: [facility] [address] [facility] [address] Performing Lab: [facility] [address] [facility] [address] [facility] CBC ERYTHROCYTE S [#/VOLUME] IN BLOOD BY AUTOMATED COUNT 3.36 10*6/u L 3.60 - 5.00 11/26 L Specimen Type: BLOOD No comment entered. Ordering Provider: HOWIE LIN Report Released Date/Time: Nov 26, 2024 08:04 AM Reporting Lab: [facility] [address] [facility] [address] Performing Lab: [facility] [address] [facility] [address] [facility] CBC HEMOGLOBIN [MASS/VOLUM E] IN BLOOD 10.8 g/dL 11.0 - 14.9 11/26 L Specimen Type: BLOOD No comment entered. Ordering Provider: HOWIE LIN Report Released Date/Time: Nov 26, 2024 08:04 AM Reporting Lab: [facility] [address] [facility] [address] Performing Lab: [place] [address] [facility] [address] [facility] CBC HEMATOCRIT [VOLUME FRACTION] OF BLOOD 35.2 32.6 - 43.4 11/26 Specimen Type: BLOOD No comment entered. Ordering Provider: HOWIE LIN Report Released Date/Time: Nov 26, 2024 08:04 AM Reporting Lab: [place] [address] [facility] [address] Performing Lab: [place] [address] [facility] [address] [facility] CBC MCV [ENTITIC VOLUME] BY AUTOMATED COUNT 104.8 fL 80.0 - 100.0 11/26 H Specimen Type: BLOOD No comment entered. Ordering Provider: HOWIE LIN Report Released Date/Time: Nov 26, 2024 08:04 AM Reporting Lab: [place] [address] [facility] [address] Performing Lab: [address] [address] [facility] CBC MCH [ENTITIC MASS] BY AUTOMATED COUNT 32.1 pg 27.0 - 34.0 11/26 Specimen Type: BLOOD No comment entered. Ordering Provider: HOWIE LIN Report Released Date/Time: Nov 26, 2024 08:04 AM Reporting Lab: [place] [address] [facility] [address] Performing Lab: [address] [address] [facility] CBC MCHC [MASS/VOLUM E] BY AUTOMATED COUNT 30.7 g/dL 33.0 - 36.0 11/26 L Specimen Type: BLOOD No comment entered. Ordering Provider: HOWIE LIN Report Released Date/Time: Nov 26, 2024 08:04 AM Reporting Lab: [address] [place] [address] Performing Lab: [address] [address] [facility] CBC PLATELETS [#/VOLUME] IN BLOOD BY AUTOMATED COUNT 184 10*3/u L 150 - 400 11/26 Specimen Type: BLOOD No comment entered. Ordering Provider: HOWIE LIN Report Released Date/Time: Nov 26, 2024 08:04 AM Reporting Lab: [place] [address] [facility] [address] Performing Lab: [address] [address] [facility] CBC PLATELET MEAN VOLUME [ENTITIC VOLUME] IN BLOOD BY AUTOMATED COUNT 12.3 fL 7.5 - 11.2 11/26 H Specimen Type: BLOOD No comment entered. Ordering Provider: HOWIE LIN Report Released Date/Time: Nov 26, 2024 08:04 AM Reporting Lab: [place] [address] [facility] [address] Performing Lab: [address] [address] [facility] CBC ERYTHROCYTE DISTRIBUTIO N WIDTH [RATIO] BY AUTOMATED COUNT 12.3 11.8 - 15.1 11/26 Specimen Type: BLOOD No comment entered. Ordering Provider: HOWIE LIN Report Released Date/Time: Nov 26, 2024 08:04 AM Reporting Lab: [place] [address] [facility] [address] Performing Lab: [address] [address] [facility] CBC PLATELETS RETICULATED /100 PLATELETS IN BLOOD BY AUTOMATED COUNT 8.3 1.0 - 7.0 11/26 H Specimen Type: BLOOD No comment entered. Ordering Provider: HOWIE LIN Report Released Date/Time: Nov 26, 2024 08:04 AM Reporting Lab: [facility] [address] [facility] [address] Performing Lab: [facility] [address] [facility] [place] [address] [facility] CBC LYMPHOCYTES /100 LEUKOCYTES IN BLOOD BY AUTOMATED COUNT 19 11/26 Specimen Type: BLOOD No comment entered. Ordering Provider: HOWIE LIN Report Released Date/Time: Nov 26, 2024 08:04 AM Reporting Lab: [facility] [address] [facility] [address] Performing Lab: [facility] [address] [facility] [place] [address] [facility] CBC MONOCYTES/1 00 LEUKOCYTES IN BLOOD BY AUTOMATED COUNT 8 11/26 Specimen Type: BLOOD No comment entered. Ordering Provider: HOWIE LIN Report Released Date/Time: Nov 26, 2024 08:04 AM Reporting Lab: [facility] [address] [facility] [address] Performing Lab: [facility] [address] [facility] [place] [address] [facility] CBC NEUTROPHILS /100 LEUKOCYTES IN BLOOD BY AUTOMATED COUNT 72 11/26 Specimen Type: BLOOD No comment entered. Ordering Provider: HOWIE LIN Report Released Date/Time: Nov 26, 2024 08:04 AM Reporting Lab: [facility] [address] [facility] [address] Performing Lab: [facility] [address] [facility] [address] [facility] CBC EOSINOPHILS /100 LEUKOCYTES IN BLOOD BY AUTOMATED COUNT 1 11/26 Specimen Type: BLOOD No comment entered. Ordering Provider: HOWIE LIN Report Released Date/Time: Nov 26, 2024 08:04 AM Reporting Lab: [facility] [address] [facility] [address] Performing Lab: [facility] [address] [facility] [address] [facility] CBC BASOPHILS/1 00 LEUKOCYTES IN BLOOD BY AUTOMATED COUNT 0 11/26 Specimen Type: BLOOD No comment entered. Ordering Provider: HOWIE LIN Report Released Date/Time: Nov 26, 2024 08:04 AM Reporting Lab: [place] [address] [facility] [address] Performing Lab: [place] [address] [facility] [place] [address] [facility] CBC LYMPHOCYTES [#/VOLUME] IN BLOOD BY AUTOMATED COUNT 1.83 10*3/u L 0.77 - 4.50 11/26 Specimen Type: BLOOD No comment entered. Ordering Provider: HOWIE LIN Report Released Date/Time: Nov 26, 2024 08:04 AM Reporting Lab: [place] [address] [facility] [place] [address] Performing Lab: [place] [address] [facility] [place] [address] [facility] CBC MONOCYTES [#/VOLUME] IN BLOOD BY AUTOMATED COUNT 0.79 10*3/u L 0.19 - 0.80 11/26 Specimen Type: BLOOD No comment entered. Ordering Provider: HOWIE LIN Report Released Date/Time: Nov 26, 2024 08:04 AM Reporting Lab: [place] [address] [facility] [address] Performing Lab: [place] [address] [facility] [address] [facility] CBC NEUTROPHILS [#/VOLUME] IN BLOOD BY AUTOMATED COUNT 7.10 10*3/u L 2.10 - 8.00 11/26 Specimen Type: BLOOD No comment entered. Ordering Provider: HOWIE LIN Report Released Date/Time: Nov 26, 2024 08:04 AM Reporting Lab: [place] [address] [place] [phone] Performing Lab: [facility] [address] [facility] [address] [facility] CBC EOSINOPHILS [#/VOLUME] IN BLOOD BY AUTOMATED COUNT 0.11 10*3/u L 0.00 - 0.60 11/26 Specimen Type: BLOOD No comment entered. Ordering Provider: HOWIE LIN Report Released Date/Time: Nov 26, 2024 08:04 AM Reporting Lab: [place] [address] [facility] [address] Performing Lab: [address] [address] [facility] CBC BASOPHILS [#/VOLUME] IN BLOOD BY AUTOMATED COUNT 0.02 10*3/u L 0.00 - 0.20 11/26 Specimen Type: BLOOD No comment entered. Ordering Provider: HOWIE LIN Report Released Date/Time: Nov 26, 2024 08:04 AM Reporting Lab: [place] [address] [facility] [address] Performing Lab: [address] [address] [facility] FERRITIN FERRITIN [MASS/VOLUM E] IN SERUM OR PLASMA 332.84 ng/mL 10 - 204 11/26 H Specimen Type: SERUM No comment entered. Ordering Provider: HOWIE LIN Report Released Date/Time: Nov 26, 2024 08:04 AM Reporting Lab: [place] [address] [facility] [place] [address] Performing Lab: [address] [address] [facility] IRON/TIBC PROFILE IRON BINDING CAPACITY [MASS/VOLUM E] IN SERUM OR PLASMA 273 ug/dL 250 - 450 11/26 Specimen Type: SERUM No comment entered. Ordering Provider: HOWIE LIN Report Released Date/Time: Nov 26, 2024 08:04 AM Reporting Lab: [facility] [address] [facility] [address] Performing Lab: [facility] [address] [facility] [place] [address] [facility] IRON/TIBC PROFILE TRANSFERRIN [MASS/VOLUM E] IN SERUM OR PLASMA 218 mg/dL 173 - 360 11/26 Specimen Type: SERUM No comment entered. Ordering Provider: HOWIE LIN Report Released Date/Time: Nov 26, 2024 08:04 AM Reporting Lab: [facility] [address] [facility] [address] Performing Lab: [place] [address] [facility] [address] [facility] IRON/TIBC PROFILE IRON SATURATION [MASS FRACTION] IN SERUM OR PLASMA 26 20 - 50 11/26 Specimen Type: SERUM No comment entered. Ordering Provider: HOWIE LIN Report Released Date/Time: Nov 26, 2024 08:04 AM Reporting Lab: [place] [address] [facility] [address] Performing Lab: [place] [address] [facility] [address] [facility] IRON/TIBC PROFILE IRON [MASS/VOLUM E] IN SERUM OR PLASMA 70 ug/dL 50 - 170 11/26 Specimen Type: SERUM No comment entered. Ordering Provider: HOWIE LIN Report Released Date/Time: Nov 26, 2024 08:04 AM Reporting Lab: [place] [address] [facility] [address] Performing Lab: [facility] [address] [facility] [address] [facility] PTH, INTACT (STL) PARATHYRIN. INTACT [MASS/VOLUM E] IN SERUM OR PLASMA 32.80 pg/mL 8.7 - 77.7 11/26 Specimen Type: SERUM No comment entered. Ordering Provider: HOWIE LIN Report Released Date/Time: Nov 26, 2024 08:04 AM Reporting Lab: [facility] [address] [facility] [address] Performing Lab: [facility] [address] [facility] [address] [facility] RENAL PANEL CREATININE [MASS/VOLUM E] IN SERUM OR PLASMA 2.29 mg/dL 0.6 - 1.1 11/26 H Specimen Type: PLASMA Comment: No hemolysis noted. Ordering Provider: HOWIE LIN Report Released Date/Time: Nov 26, 2024 08:04 AM Reporting Lab: [facility] [address] [facility] [address] Performing Lab: [facility] [address] [facility] [address] [facility] RENAL PANEL UREA NITROGEN [MASS/VOLUM E] IN SERUM OR PLASMA 37.9 mg/dL 9.0 - 25.0 11/26 H Specimen Type: PLASMA Comment: No hemolysis noted. Ordering Provider: HOWIE LIN Report Released Date/Time: Nov 26, 2024 08:04 AM Reporting Lab: [facility] [address] [facility] [address] Performing Lab: [facility] [address] [facility] [address] [facility] RENAL PANEL GLUCOSE [MASS/VOLUM E] IN SERUM OR PLASMA 95 mg/dL 72 - 99 11/26 Specimen Type: PLASMA Comment: No hemolysis noted. Ordering Provider: HOWIE LIN Report Released Date/Time: Nov 26, 2024 08:04 AM Reporting Lab: [facility] [address] [facility] [address] Performing Lab: [facility] [address] [facility] [address] [facility] RENAL PANEL SODIUM [MOLES/VOLU ME] IN SERUM OR PLASMA 139 meq/L 136 - 145 11/26 Specimen Type: PLASMA Comment: No hemolysis noted. Ordering Provider: HOWIE LIN Report Released Date/Time: Nov 26, 2024 08:04 AM Reporting Lab: [facility] [address] [facility] [address] Performing Lab: [facility] [address] [facility] [address] [facility] RENAL PANEL POTASSIUM [MOLES/VOLU ME] IN SERUM OR PLASMA 4.8 meq/L 3.5 - 5 11/26 Specimen Type: PLASMA Comment: No hemolysis noted. Ordering Provider: HOWIE LIN Report Released Date/Time: Nov 26, 2024 08:04 AM Reporting Lab: [facility] [address] [facility] [address] Performing Lab: [facility] [address] [facility] [address] [facility] RENAL PANEL CHLORIDE [MOLES/VOLU ME] IN SERUM OR PLASMA 105 meq/L 98 - 107 11/26 Specimen Type: PLASMA Comment: No hemolysis noted. Ordering Provider: HOWIE LIN Report Released Date/Time: Nov 26, 2024 08:04 AM Reporting Lab: [facility] [address] [facility] [address] Performing Lab: [facility] [address] [facility] [address] [facility] RENAL PANEL CARBON DIOXIDE, TOTAL [MOLES/VOLU ME] IN SERUM OR PLASMA 24 meq/L 22 - 31 11/26 Specimen Type: PLASMA Comment: No hemolysis noted. Ordering Provider: HOWIE LIN Report Released Date/Time: Nov 26, 2024 08:04 AM Reporting Lab: [facility] [address] [facility] [address] Performing Lab: [facility] [address] [facility] [address] [facility] RENAL PANEL CALCIUM [MASS/VOLUM E] IN SERUM OR PLASMA 8.0 mg/dL 8.4 - 10.4 11/26 L Specimen Type: PLASMA Comment: No hemolysis noted. Ordering Provider: HOWIE LIN Report Released Date/Time: Nov 26, 2024 08:04 AM Reporting Lab: [place] [address] [address] [facility] [address] Performing Lab: [facility] [address] [facility] [address] [facility] RENAL PANEL PHOSPHATE [MASS/VOLUM E] IN SERUM OR PLASMA 5.1 mg/dL 2.3 - 4.7 11/26 H Specimen Type: PLASMA Comment: No hemolysis noted. Ordering Provider: HOWIE LIN Report Released Date/Time: Nov 26, 2024 08:04 AM Reporting Lab: [place] [address] [facility] [address] Performing Lab: [place] [address] [facility] [address] [facility] RENAL PANEL ALBUMIN [MASS/VOLUM E] IN SERUM OR PLASMA 4.1 g/dL 3.4 - 5 11/26 Specimen Type: PLASMA Comment: No hemolysis noted. Ordering Provider: HOWIE LIN Report Released Date/Time: Nov 26, 2024 08:04 AM Reporting Lab: [place] [address] [address] [facility] [address] Performing Lab: [facility] [address] [facility] [address] [facility] RENAL PANEL GLOMERULAR FILTRATION RATE/1.73 SQ M.PREDICTED [VOLUME RATE/AREA] IN SERUM, PLASMA OR BLOOD BY CREATININE- BASED FORMULA (CKD-EPI 2020) 22.6 60 11/26 Specimen Type: PLASMA Comment: No hemolysis noted. Ordering Provider: HOWIE LIN Report Released Date/Time: Nov 26, 2024 08:04 AM Reporting Lab: [facility] [address] [facility] [address] Performing Lab: [place] [address] [facility] [address] [facility] VITAMIN D, 25-HYDROX Y 25-HYDROXYV ITAMIN D3 [MASS/VOLUM E] IN SERUM OR PLASMA 60.0 ng/mL 30 - 96 11/26 Specimen Type: SERUM No comment entered. Ordering Provider: HOWIE LIN Report Released Date/Time: Nov 26, 2024 08:04 AM Reporting Lab: [place] [address] [address] [facility] [address] Performing Lab: [place] [address] [place] [phone] [facility] RENAL PANEL CREATININE [MASS/VOLUM E] IN SERUM OR PLASMA 2.29 mg/dL 0.6 - 1.1 11/26 H Specimen Type: PLASMA Comment: K result canceled due to hemolysis. Specimen moderately hemolyzed. Called to :Shamir Cline RN at: 1255 on: RENANP2 by: BLO K+ Cancelled due to moderate hemolysis. 11/26/2024 Ordering Provider: HOWIE LIN Report Released Date/Time: Nov 26, 2024 11:24 AM Reporting Lab: [place] [address] [address] [facility] [address] Performing Lab: [place] [address] [facility] [address] [facility] RENAL PANEL UREA NITROGEN [MASS/VOLUM E] IN SERUM OR PLASMA 36.9 mg/dL 9.0 - 25.0 11/26 H Specimen Type: PLASMA Comment: K result canceled due to hemolysis. Specimen moderately hemolyzed. Called to :Shamir Cline RN at: 1255 on: RENANP2 by: BLO K+ Cancelled due to moderate hemolysis. 11/26/2024 Ordering Provider: HOWIE LIN Report Released Date/Time: Nov 26, 2024 11:24 AM Reporting Lab: [place] [address] [place] [phone] Performing Lab: [place] [address] [place] [phone] RENAL PANEL GLUCOSE [MASS/VOLUM E] IN SERUM OR PLASMA 94 mg/dL 72 - 99 11/26 Specimen Type: PLASMA Comment: K result canceled due to hemolysis. Specimen moderately hemolyzed. Called to :Shamir Cline RN at: 1255 on: RENANP2 by: BLO K+ Cancelled due to moderate hemolysis. 11/26/2024 Ordering Provider: OHWIE LIN Report Released Date/Time: Nov 26, 2024 11:24 AM Reporting Lab: [place] [address] [place] [address] Performing Lab: [place] [address] [place] [address] [place] [address] RENAL PANEL SODIUM [MOLES/VOLU ME] IN SERUM OR PLASMA 139 meq/L 136 - 145 11/26 Specimen Type: PLASMA Comment: K result canceled due to hemolysis. Specimen moderately hemolyzed. Called to :Shamir Cline RN at: 1255 on: RENANP2 by: BLO K+ Cancelled due to moderate hemolysis. 11/26/2024 Ordering Provider: HOWIE LIN Report Released Date/Time: Nov 26, 2024 11:24 AM Reporting Lab: [place] [address] [place] [address] Performing Lab: [place] [address] RENAL PANEL POTASSIUM [MOLES/VOLU ME] IN SERUM OR PLASMA cancme q/L 3.5 - 5 11/26 H Specimen Type: PLASMA Comment: K result canceled due to hemolysis. Specimen moderately hemolyzed. Called to :Shamir Cline RN at: 1255 on: RENANP2 by: BLO K+ Cancelled due to moderate hemolysis. 11/26/2024 Ordering Provider: HOWIE LIN Report Released Date/Time: Nov 26, 2024 11:24 AM Reporting Lab: [facility] [address] [facility] [address] Performing Lab: [place] [address] [facility] [address] [facility] RENAL PANEL CHLORIDE [MOLES/VOLU ME] IN SERUM OR PLASMA 105 meq/L 98 - 107 11/26 Specimen Type: PLASMA Comment: K result canceled due to hemolysis. Specimen moderately hemolyzed. Called to :Shamir Cline RN at: 1255 on: RENANP2 by: BLO K+ Cancelled due to moderate hemolysis. 11/26/2024 Ordering Provider: HOWIE LIN Report Released Date/Time: Nov 26, 2024 11:24 AM Reporting Lab: [place] [address] [facility] [address] Performing Lab: [place] [address] [facility] [phone] [place] [address] RENAL PANEL CARBON DIOXIDE, TOTAL [MOLES/VOLU ME] IN SERUM OR PLASMA 22 meq/L 22 - 31 11/26 Specimen Type: PLASMA Comment: K result canceled due to hemolysis. Specimen moderately hemolyzed. Called to :Shamir Cline RN at: 1255 on: RENANP2 by: BLO K+ Cancelled due to moderate hemolysis. 11/26/2024 Ordering Provider: HOWIE LIN Report Released Date/Time: Nov 26, 2024 11:24 AM Reporting Lab: [place] [address] [address] [facility] [address] Performing Lab: [place] [address] [facility] [phone] RENAL PANEL CALCIUM [MASS/VOLUM E] IN SERUM OR PLASMA 8.0 mg/dL 8.4 - 10.4 11/26 L Specimen Type: PLASMA Comment: K result canceled due to hemolysis. Specimen moderately hemolyzed. Called to :Shamir Cline RN at: 1255 on: RENANP2 by: BLO K+ Cancelled due to moderate hemolysis. 11/26/2024 Ordering Provider: HOWIE LIN Report Released Date/Time: Nov 26, 2024 11:24 AM Reporting Lab: [facility] [address] [facility] [address] Performing Lab: [facility] [address] [place] [phone] [place] [address] RENAL PANEL PHOSPHATE [MASS/VOLUM E] IN SERUM OR PLASMA 5.3 mg/dL 2.3 - 4.7 11/26 H Specimen Type: PLASMA Comment: K result canceled due to hemolysis. Specimen moderately hemolyzed. Called to :Shamir Cline RN at: 1255 on: RENANP2 by: BLO K+ Cancelled due to moderate hemolysis. 11/26/2024 Ordering Provider: HOWIE LIN Report Released Date/Time: Nov 26, 2024 11:24 AM Reporting Lab: [facility] [address] [place] [address] Performing Lab: [address] [phone] [place] [address] RENAL PANEL ALBUMIN [MASS/VOLUM E] IN SERUM OR PLASMA 4.0 g/dL 3.4 - 5 11/26 Specimen Type: PLASMA Comment: K result canceled due to hemolysis. Specimen moderately hemolyzed. Called to :Shamir Cline RN at: 1255 on: RENANP2 by: BLO K+ Cancelled due to moderate hemolysis. 11/26/2024 Ordering Provider: HOWIE LIN Report Released Date/Time: Nov 26, 2024 11:24 AM Reporting Lab: [facility] [address] [facility] [address] Performing Lab: [facility] [address] [facility] [address] [facility] RENAL PANEL GLOMERULAR FILTRATION RATE/1.73 SQ M.PREDICTED [VOLUME RATE/AREA] IN SERUM, PLASMA OR BLOOD BY CREATININE- BASED FORMULA (CKD-EPI 2020) 22.6 60 11/26 Specimen Type: PLASMA Comment: K result canceled due to hemolysis. Specimen moderately hemolyzed. Called to :Shamir Cline RN at: 1255 on: [email or web address] by: BLO K+ Cancelled due to moderate hemolysis. 11/26/2024 Ordering Provider: HOWIE LIN Report Released Date/Time: Nov 26, 2024 11:24 AM Reporting Lab: [facility] [place] [address] Performing Lab: [address] COMPREHEN SIVE METABOLIC PANEL CREATININE [MASS/VOLUM E] IN SERUM OR PLASMA 2.53 mg/dL 0.6 - 1.1 10/28 H Specimen Type: PLASMA Comment: No hemolysis noted. Ordering Provider: CAMERON ARREDONDO Report Released Date/Time: Oct 21, 2024 12:25 PM Reporting Lab: [facility] [address] Performing Lab: [facility] [phone] [place] [address] COMPREHEN SIVE METABOLIC PANEL UREA NITROGEN [MASS/VOLUM E] IN SERUM OR PLASMA 41.9 mg/dL 9.0 - 25.0 10/28 H Specimen Type: PLASMA Comment: No hemolysis noted. Ordering Provider: CAMERON ARREDONDO Report Released Date/Time: Oct 21, 2024 12:25 PM Reporting Lab: [facility] [address] Performing Lab: [id number] [place] [address] COMPREHEN SIVE METABOLIC PANEL GLUCOSE [MASS/VOLUM E] IN SERUM OR PLASMA 71 mg/dL 72 - 99 10/28 L Specimen Type: PLASMA Comment: No hemolysis noted. Ordering Provider: CAMERON ARREDONDO Report Released Date/Time: Oct 21, 2024 12:25 PM Reporting Lab: [facility] [address] [facility] [address] Performing Lab: [facility] [address] [facility] [address] [facility] COMPREHEN SIVE METABOLIC PANEL SODIUM [MOLES/VOLU ME] IN SERUM OR PLASMA 141 meq/L 136 - 145 10/28 Specimen Type: PLASMA Comment: No hemolysis noted. Ordering Provider: CAMERON ARREDONDO Report Released Date/Time: Oct 21, 2024 12:25 PM Reporting Lab: [facility] [address] [facility] [address] Performing Lab: [facility] [address] [facility] [address] [facility] COMPREHEN SIVE METABOLIC PANEL POTASSIUM [MOLES/VOLU ME] IN SERUM OR PLASMA 4.2 meq/L 3.5 - 5 10/28 Specimen Type: PLASMA Comment: No hemolysis noted. Ordering Provider: CAMERON ARREDONDO Report Released Date/Time: Oct 21, 2024 12:25 PM Reporting Lab: [facility] [address] [facility] [address] Performing Lab: [facility] [address] [facility] [address] [facility] COMPREHEN SIVE METABOLIC PANEL CHLORIDE [MOLES/VOLU ME] IN SERUM OR PLASMA 107 meq/L 98 - 107 10/28 Specimen Type: PLASMA Comment: No hemolysis noted. Ordering Provider: CAMERON ARREDONDO Report Released Date/Time: Oct 21, 2024 12:25 PM Reporting Lab: [facility] [address] [facility] [address] Performing Lab: [facility] [address] [place] [address] [facility] COMPREHEN SIVE METABOLIC PANEL CARBON DIOXIDE, TOTAL [MOLES/VOLU ME] IN SERUM OR PLASMA 21 meq/L 22 - 31 10/28 L Specimen Type: PLASMA Comment: No hemolysis noted. Ordering Provider: CAMERON ARREDONDO Report Released Date/Time: Oct 21, 2024 12:25 PM Reporting Lab: [facility] [address] [place] [address] Performing Lab: [facility] [address] [place] [address] [facility] COMPREHEN SIVE METABOLIC PANEL CALCIUM [MASS/VOLUM E] IN SERUM OR PLASMA 8.1 mg/dL 8.4 - 10.4 10/28 L Specimen Type: PLASMA Comment: No hemolysis noted. Ordering Provider: CAMERON ARREDONDO Report Released Date/Time: Oct 21, 2024 12:25 PM Reporting Lab: [facility] [address] [place] [address] Performing Lab: [facility] [address] [place] [address] [facility] COMPREHEN SIVE METABOLIC PANEL PROTEIN [MASS/VOLUM E] IN SERUM OR PLASMA 7.2 g/dL 6 - 8.6 10/28 Specimen Type: PLASMA Comment: No hemolysis noted. Ordering Provider: CAMERON ARREDONDO Report Released Date/Time: Oct 21, 2024 12:25 PM Reporting Lab: [facility] [address] [place] [address] Performing Lab: [facility] [address] [place] [phone] [facility] COMPREHEN SIVE METABOLIC PANEL ALBUMIN [MASS/VOLUM E] IN SERUM OR PLASMA 4.3 g/dL 3.4 - 5 10/28 Specimen Type: PLASMA Comment: No hemolysis noted. Ordering Provider: CAMERON ARREDONDO Report Released Date/Time: Oct 21, 2024 12:25 PM Reporting Lab: [facility] [address] [place] [address] Performing Lab: [facility] [address] [place] [address] [facility] COMPREHEN SIVE METABOLIC PANEL BILIRUBIN.T OTAL [MASS/VOLUM E] IN SERUM OR PLASMA 0.2 mg/dL 0.2 - 1.2 10/28 Specimen Type: PLASMA Comment: No hemolysis noted. Ordering Provider: CAMERON ARREDONDO Report Released Date/Time: Oct 21, 2024 12:25 PM Reporting Lab: [facility] [address] [place] [address] Performing Lab: [facility] [address] [place] [address] [facility] COMPREHEN SIVE METABOLIC PANEL ALKALINE PHOSPHATASE [ENZYMATIC ACTIVITY/VO LUME] IN SERUM OR PLASMA 41 U/L 40 - 150 10/28 Specimen Type: PLASMA Comment: No hemolysis noted. Ordering Provider: CAMERON ARREDONDO Report Released Date/Time: Oct 21, 2024 12:25 PM Reporting Lab: [facility] [address] [place] [address] Performing Lab: [facility] [address] [place] [address] [facility] COMPREHEN SIVE METABOLIC PANEL ASPARTATE AMINOTRANSF ERASE [ENZYMATIC ACTIVITY/VO LUME] IN SERUM OR PLASMA 19 U/L 5 - 34 10/28 Specimen Type: PLASMA Comment: No hemolysis noted. Ordering Provider: CAMERON ARREDONDO Report Released Date/Time: Oct 21, 2024 12:25 PM Reporting Lab: [facility] [address] [place] [address] Performing Lab: [facility] [address] [facility] [address] [facility] COMPREHEN SIVE METABOLIC PANEL ALANINE AMINOTRANSF ERASE [ENZYMATIC ACTIVITY/VO LUME] IN SERUM OR PLASMA 10 U/L 8 - 40 10/28 Specimen Type: PLASMA Comment: No hemolysis noted. Ordering Provider: CAMERON ARREDONDO Report Released Date/Time: Oct 21, 2024 12:25 PM Reporting Lab: [facility] [address] [place] [address] Performing Lab: [facility] [address] [place] [phone] [facility] COMPREHEN SIVE METABOLIC PANEL GLOMERULAR FILTRATION RATE/1.73 SQ M.PREDICTED [VOLUME RATE/AREA] IN SERUM, PLASMA OR BLOOD BY CREATININE- BASED FORMULA (CKD-EPI 2020) 20.2 60 10/28 Specimen Type: PLASMA Comment: No hemolysis noted. Ordering Provider: CAMERON ARREDONDO Report Released Date/Time: Oct 21, 2024 12:25 PM Reporting Lab: [place] [address] [place] [address] Performing Lab: [place] [address] [place] [phone] MICRAL/CR EAT PROFILE (STL) ALBUMIN [MASS/VOLUM E] IN URINE 340.6 mg/L 07/18 Specimen Type: URINE No comment entered. Ordering Provider: HOOD HARRIS I Report Released Date/Time: Jul 18, 2024 11:21 AM Reporting Lab: [place] [address] [facility] [place] [address] Performing Lab: [place] [address] [facility] [place] [address] [facility] MICRAL/CR EAT PROFILE (STL) ALBUMIN/CRE ATININE [MASS RATIO] IN URINE 2183 mg/g 0 - 29 07/18 H Specimen Type: URINE No comment entered. Ordering Provider: HOOD HARRIS I Report Released Date/Time: Jul 18, 2024 11:21 AM Reporting Lab: [place] [address] [place] [address] Performing Lab: [place] [address] [place] [address] [facility] MICRAL/CR EAT PROFILE (STL) CREATININE [MASS/VOLUM E] IN URINE 15.6 mg/dL 47 - 110 07/18 L Specimen Type: URINE No comment entered. Ordering Provider: HOOD HARRIS I Report Released Date/Time: Jul 18, 2024 11:21 AM Reporting Lab: [address] [place] [address] Performing Lab: [facility] [address] [facility] [facility] [address] [facility] FERRITIN FERRITIN [MASS/VOLUM E] IN SERUM OR PLASMA 314.64 ng/mL 10 - 07/18 H Specimen Type: SERUM No comment entered. Ordering Provider: HOOD HARRIS I Report Released Date/Time: Jul 18, 2024 11:21 AM Reporting Lab: [facility] [address] [facility] [place] [address] Performing Lab: [address] [address] [facility] Vital Signs Combined list of inpatient and outpatient Vital Signs from Department of Defense and Veterans Affairs, ranging from 12 months to all on record, depending upon the facility. Vital Sign Value Date Comments Source SYSTOLIC BLOOD PRESSURE 150 11/26/2024 10:43:55 [facility] DIASTOLIC BLOOD PRESSURE 87 11/26/2024 10:43:55 [facility] PULSE OXIMETRY 100 % 11/26/2024 10:43:55 [facility] WEIGHT 135.2 11/26/2024 10:43:55 [facility] BMI 23 kg/m2 11/26/2024 10:43:55 [facility] PAIN 3 11/26/2024 10:43:55 [facility] TEMPERATURE 98 11/26/2024 10:43:55 [facility] PULSE 67 11/26/2024 10:43:55 [facility] RESPIRATION 16 11/26/2024 10:43:55 [facility] SYSTOLIC BLOOD PRESSURE 135 10/21/2024 11:32:32 [facility] DIASTOLIC BLOOD PRESSURE 76 10/21/2024 11:32:32 [facility] PULSE OXIMETRY 96 % 10/21/2024 11:32:32 [facility] WEIGHT 131.8 10/21/2024 11:32:32 [facility] BMI 23 kg/m2 10/21/2024 11:32:32 [facility] PAIN 0 10/21/2024 11:32:32 [facility] TEMPERATURE 97.4 10/21/2024 11:32:32 JAIME [facility] PULSE 60 10/21/2024 11:32:32 [facility] [place] RESPIRATION 18 10/21/2024 11:32:32 JAIME [facility] SYSTOLIC BLOOD PRESSURE 154 10/06/2024 13:28:11 [facility] DIASTOLIC BLOOD PRESSURE 93 10/06/2024 13:28:11 [facility] PULSE OXIMETRY 100 % 10/06/2024 13:28:11 [facility] WEIGHT 133.9 10/06/2024 13:28:11 [facility] BMI 23 kg/m2 10/06/2024 13:28:11 [facility] PAIN 0 10/06/2024 13:28:11 [facility] HEIGHT 64 10/06/2024 13:28:11 [facility] TEMPERATURE 97.4 10/06/2024 13:28:11 [facility] PULSE 76 10/06/2024 13:28:11 [facility] RESPIRATION 16 10/06/2024 13:28:11 [facility] SYSTOLIC BLOOD PRESSURE 181 07/18/2024 11:18:12 [facility] DIASTOLIC BLOOD PRESSURE 101 07/18/2024 11:18:12 [facility] PULSE OXIMETRY 95 07/18/2024 11:18:12 [facility] WEIGHT 130.3 07/18/2024 11:18:12 [facility] BMI 22 kg/m2 07/18/2024 11:18:12 [facility] TEMPERATURE 98 07/18/2024 11:18:12 [facility] PULSE 69 07/18/2024 11:18:12 [facility] RESPIRATION 16 07/18/2024 11:18:12 [facility] SYSTOLIC BLOOD PRESSURE 134 06/13/2024 09:03:33 [facility] DIASTOLIC BLOOD PRESSURE 86 06/13/2024 09:03:33 [facility] PULSE OXIMETRY 97 06/13/2024 09:03:33 [facility] WEIGHT 128.8 06/13/2024 09:03:33 [facility] BMI 22 kg/m2 06/13/2024 09:03:33 [facility] PAIN 0 06/13/2024 09:03:33 [facility] TEMPERATURE 97.7 06/13/2024 09:03:33 [facility] PULSE 65 06/13/2024 09:03:33 [facility] RESPIRATION 16 06/13/2024 09:03:33 [facility] Encounters Combined list of: 1) Encounters from Department of [facility] facilities going backup to the last 18 months, not all VA inpatient encounters are included; 2) Encounters from the Department of Defense facilities going backup to 280 months. Location Location Details Encounter Type Encounter Number Reason For Visit Attending Provider ADM Date DC Date Status Disposition Source [facility] Medical [facility](SAY Madden) OUTPATIENT [id number] renewal on all meds... .ALEN Winter 08/24 Released w/o Limitations [facility] Medical Group(Z Tabatha alejandra [place]og[place]) [address] [place] [address] Group(Ort hopedic EG) OUTPATIENT [id number] KENTON ARREDONDO 08/28 Released with Work/Duty Limitations [facility] Medical [facility](O rthoped ic EG) [address] [place] [address](SAY Vásquez [place]ell) OUTPATIENT [id number] back pain, for 2 mth, unable to sleep.. ....... ALEN Hayes 09/15 Released w/o Limitations [facility] Group(Z Z [place]) [facility] OUTPATIENT [id number] PREOP - DOS Sep KENTON ARREDONDO 09/19 Released w/o Limitations [facility] Medical Group(O rthoped ic EG) [facility] Group( Fahad [place]) TELE CONSULT [id number] NICHOLAS BERNARD 09/25 [facility] Medical Group(Z Z [place]) [facility]) OUTPATIENT [id number] POSTOP - DOS Sep KENTON ARREDONDO 10/06 Released with Work/Duty Limitations [facility] Group(O rthoped ic EG) [facility] OUTPATIENT [id number] Cast Removal KENTON ARREDONDO 10/20 Released with Work/Duty Limitations [facility] Group(O rthoped ic EG) [facility]( Fahad [place]) OUTPATIENT [id number] trouble sleepin g..seen before for this... ....... ..ALEN Hayes 10/23 Released w/o Limitations [facility] Group(Z Z [place]) [facility]( Fahad [place]) TELE CONSULT [id number] needs update 2 referra ALEN Pedroza 11/27 [facility](Z Z [place]) [facility] Medical Group(Occ Therapy Cl-ENL Visits) OUTPATIENT [id number] JOSÉ MIGUEL COSTA 11/28 Released w/o Limitations [facility] Group(O cc Therapy Cl-ENL Visits) [facility](Occ Therapy Cl-ENL Visits) OUTPATIENT [id number] JOSÉ MIGUEL COSTA 11/29 Released w/o Limitations [facility] Medical Group(O cc Therapy Cl-ENL Visits) [facility](Or hopec EG) OUTPATIENT [id number] f/u left wrist surgery KENTON ARREDONDO 12/01 Released with Work/Duty Limitations [facility] Medical Group(O rthoped ic EG) [facility] Group(Occ Therapy Cl-ENL Visits) OUTPATIENT [id number] TARYNREBELMin [place] 12/04 Released w/o Limitations [facility] Group(O cc Therapy Cl-ENL Visits) [facility] Medical [facility](Occ Therapy Cl-ENL Visits) OUTPATIENT [id number] ALEXANDEROscarTWANKATHERINESTUART 12/06 Released w/o Limitations [facility] Group(O cc Therapy Cl-ENL Visits) [facility]( Fahad [place]) TELE CONSULT [id number] diarrhe a ALEN WALKER 12/14 [facility] Group(Z Z [place]) [facility] Medical [facility]( Fahad C[place]ell) OUTPATIENT [id number] diarrhe a for 3 wks ALEN WALKER 12/28 Released w/o Limitations [facility] Group(Z Z [place]) [facility] Medical [facility]( Fahad [place]) TELE CONSULT [id number] lump in breast NICHOLAS BERNARD 02/05 [facility] Group(Z Z [place]) [facility] Medical [facility]( Fahad [place]) OUTPATIENT [id number] Lt breast lump, on outside of breast, pea size, not pain full ALEN WALKER 02/08 Released w/o Limitations [facility](Z Z [place]) [facility] Group(Ort hopedic EG) OUTPATIENT [id number] f/u per doc, left wrist. KENTON ARREDONDO 04/17 Released w/o Limitations [facility] Medical Group(O rthoped ic EG) [facility] Group(720 th AST [facility]) OUTPATIENT [id number] Civ Occ [facility] Exam JACKELIN COLIN 05/02 Released w/o Limitations [facility] Medical [facility](7 AST Flt [facility]) [facility] Medical [facility]( Fahad [place]) TELE CONSULT [id number] RX REFILL ALEN WALKER 05/22 [facility](Z Z [place]) [facility]( Fahad [place]) OUTPATIENT [id number] F/U HTN ALEN WALKER 05/31 Released w/o Limitations [address] [place] [address] Group( Z [place]) [facility]( Fahad [place]) TELE CONSULT [id number] NICHOLAS BERNARD 06/06 [facility] Medical Group([facility] [facility] [place]) [facility] TELE CONSULT [id number] NICHOLAS BERNARD 06/20 [facility] Group([facility] [place]) [address] [place] [address] [facility] TELE CONSULT [id number] NICHOLAS BERNARD 07/[address] [place] [address] Group([facility] [place]) [address] [place] [address]([facility]) TELE CONSULT [id number] referra l/RX refill NICHOLAS BERNARD 08/28 [facility] [place]) [facility] OUTPATIENT [id number] refill of med and wants referra l for rheum ALEN WALKER 08/29 Released w/o Limitations [address] [place] [address]([facility] [facility] [place]) [address] [place] [address] Alen KATZ [facility])([facility] Fam Res Tm Red) OUTPATIENT [id number] ABDULLAHI Gentile 08/07 Released w/o Limitations [address] [place] [address] Alen KATZ [facility])([facility] Fam Res Tm Red) [address] [place] [address] Alen [facility])([facility] Team 4) TELE CONSULT [id number] Paperwo rk - No SRINIVAS SMITH 08/[address] [place] [address] Alen Kahlil [facility])([facility] Team 4) [address] [place] [address] Alen [facility])([facility] Fam Res Tm Red) OUTPATIENT [id number] NAF CIRILO Bazan 08/13 Released w/o Limitations [address] [place] [address] Alen KATZ [facility])(S cott JD [facility] Fam Res Tm Red) [facility] Outpatient Encounter [id number] 06/17 [facility] PT RE-EVAL EST PLAN CARE [id number] Diagnos is: ICD-10- CM R26.9 Unspeci fied abnorma lities of gait and mobilit y FAYE,JOSE LEXA J 06/18 [facility] THERAPEUTI C EXERCISES [id number] Diagnos is: ICD-10- CM R26.9 Unspeci fied abnorma lities of gait and mobilit y JOHANNA,DUS TIN J 07/05 [facility] Outpatient Encounter [id number] 07/17 [facility] Outpatient Encounter [id number] 07/19 [facility] Outpatient Encounter [id number] 07/22 [facility] Outpatient Encounter [id number] 07/25 [facility] OFFICE O/P EST MOD 30 MIN [id number] Diagnos is: ICD-10- CM N18.4 Chronic kidney disease , stage 4 (severe ) Carolina HARRIS I 07/29 [facility] Outpatient Encounter [id number] Diagnos is: ICD-10- CM 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 JASPER ESPINOSA 08/05 [facility] Outpatient Encounter [id number] 08/07 [facility] OTHER DRUGS/MEDI CAMENTS [id number] [id number] Diagnos is: ICD-10- CM K03.6 Deposit s [accret ions] on teeth O Nikki ALVARES 08/09 [facility] DIAGNOSTIC CASTS [id number] Diagnos is: ICD-10- CM K02.7 Dental root caries MANUEL BOLESI 08/09 [facility] OFFICE O/P EST MOD 30 MIN [id number] Diagnos is: ICD-10- CM M75.121 Complet e rotatr- cuff tear/ru ptr of r shoulde r, not trauma LEROY SKELTON R 08/14 [facility] Outpatient Encounter [id number] 08/14 [facility] Outpatient Encounter [id number] 08/20 [facility] Outpatient Encounter [id number] 09/03 [facility] Outpatient Encounter [id number] 09/04 [facility] Outpatient Encounter [id number] Diagnos is: ICD-10- CM Z04.89 Encount er for examina tion and observa tion for oth reasons SHARYN FIELDS 09/08 [facility] Outpatient Encounter [id number] 09/16 [facility] OFFICE O/P EST MOD 30 MIN [id number] Diagnos is: ICD-10- CM H25.813 Combine d forms of age-rel ated catarac t, bilater al Michelle SANCHEZ CHERI 09/18 [facility] Outpatient Encounter [id number] 09/20 [facility] COMPRE OPH EXAM EST PT 1/> [id number] Diagnos is: ICD-10- CM 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, right eye HAYDEE TORRES 09/23 [facility] Outpatient Encounter [id number] 09/23 [facility] Outpatient Encounter [id number] ERENDIRA ROPER 09/23 [facility] OFFICE O/P EST LOW 20 MIN [id number] Diagnos is: ICD-10- CM I10 Essenti al (primar y) hyperte nsion MANISH ARREDONDO RID D 09/30 [facility] Outpatient Encounter [id number] 10/03 [facility] Outpatient Encounter [id number] ASHUAR ORINDA K 10/08 [facility] OFFICE O/P EST LOW 20 MIN [id number] Diagnos is: ICD-10- CM L82.1 Other seborrh eic keratos is Quinn DOEN 10/28 [facility] MEASURE BLOOD OXYGEN LEVEL [id number] [id number] Diagnos is: ICD-10- CM H25.13 Age-rel ated nuclear catarac t, bilater al FISH,NM ANIYAH D 11/06 [facility] OFFICE O/P EST LOW 20 MIN [id number] [id number] Diagnos is: ICD-10- CM Z01.818 Encount er for other preproc edural examina Dandy Oconnell 11/06 [facility] Outpatient Encounter [id number] RONNY LEIGH NNIFER A 11/06 [facility] Outpatient Encounter [id number] HAYDEE TORRES 11/06 [facility] XCAPSL CTRC RMVL W/O ECP [id number] [id number] RONNY LEIGH NNIFER A 11/06 [facility] Outpatient Encounter [id number] RONNY LEIGH NNIFER A 11/06 [facility] Outpatient Encounter [id number] MEENU PALUMBO 11/06 [facility] POSTOP FOLLOW-UP VISIT [id number] Diagnos is: ICD-10- CM Z96.1 Presenc e of intraoc ular lens HAYDEE TORRES 11/07 [facility] Outpatient Encounter [id number] 11/12 [facility] Outpatient Encounter [id number] 11/20 [facility] HC PRO PHONE CALL 5-10 MIN [id number] Diagnos is: ICD-10- CM Z91.89 Oth persona l risk factors , not elsewhe re classif ied LAGOS,EV ELYN L 11/20 [facility] Outpatient Encounter [id number] 11/20 [facility] HC PRO PHONE CALL 5-10 MIN [id number] [id number] 2 Diagnos is: ICD-10- CM Z91.89 Oth persona l risk factors , not elsewhe re classif ied LAGOS,EV ELYN L 11/20 [facility] Outpatient Encounter [id number] 11/20 [facility] POSTOP FOLLOW-UP VISIT [id number] [id number] Diagnos is: ICD-10- CM Z96.1 Presenc e of intraoc ular lens AURA LOPEZ ICA Y 11/25 [facility] OFFICE O/P EST MOD 30 MIN [id number] Diagnos is: ICD-10- CM I10 Essenti al (primar y) hyperte nsion DUSTIN LIN N 12/04 [facility] Outpatient Encounter [id number] DEFASAMin M 12/06 [facility] POSTOP FOLLOW-UP VISIT [id number] [id number] Diagnos is: ICD-10- CM Z96.1 Presenc e of intraoc ular lens HAYDEE TORRES CHARLA 12/10 [facility] Outpatient Encounter [id number] 01/28 [facility] OFF/OP EST MAY X REQ PHY/QHP [id number] [id number] 1 Diagnos is: ICD-10- CM Z12.11 Encount er for screeni ng for maligna nt neoplas m of colon KIN CHANDLER TTHEW H 01/29 [facility] OFFICE O/P EST MOD 30 MIN [id number] 2 Diagnos is: ICD-10- CM Z01.818 Encount er for other preproc edural examina tion Dandy GONZALEZ M 01/29 [facility] Outpatient Encounter [id number] [facility] [facility] Outpatient Encounter [id number] LUCIANO ELIAS Y E 01/29 [facility] Outpatient Encounter [id number] JR CA 01/30 [facility] Outpatient Encounter [id number] [id number] 01/31 [facility] Out[facility] Encounter 89980-4.65 [id number] 1 RBODY SAUL 03/04 [facility] En[facility] [id number] [id number] ERENDIRA ROPER 03/18 [facility] O/P EST LOW 20 MIN [id number] [id number] Diagnos is: ICD-10- CM N39.0 Urinary tract infecti on, site not specifi ed MANISH ARREDONDO RID 03/25 [facility] Outpatient Encounter [id number] 03/25 [facility] Outpatient Encounter [id number] [id number] 03/26 [facility] Outpatient Encounter [id number] [id number] 03/26 [facility] Outpatient Encounter [id number] [id number] 2 RONNY GUADALUPE A 03/26 [facility] Outpatient Encounter [id number] [id number] 03/27 [facility] Encounter [id number] [id number] 3 AVIVA RUIZ Priyank 03/27 [facility] Outpatient Encounter [id number] [id number] 03/27 [facility] Outpatient Encounter [id number] [id number] 03/27 [facility] OFF/OP CONSLTJ NEW/EST HI 55 [id number] [id number] 3 Diagnos is: ICD-10- CM 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 s classif ied elsewhe CORI Tamez 03/27 [facility] Outpatient Encounter [id number] [id number] 1 03/28 [facility] EMERGENCY DEPT VISIT MOD MDM 44179-2.65 [id number] 0 Diagnos is: ICD-10- CM F03.B0 Unspeci fied dementi a, moderat e, without beh/psy ch/mood /anx MIGUEL PAN KERA 03/28 [facility] OFFICE O/P EST MOD 30 MIN [id number] [id number] Diagnos is: ICD-10- CM R26.89 Other abnorma lities of gait and mobilit y SHOSHANA,FUR QAN 03/28 [facility] Inpatient Encounter [id number] [id number] JOSE ELIAS MAYO 03/28 [facility] Inpatient Encounter [id number] [id number] Admit Reason: SCOTTY STARKS,RAJEEV 03/28 Discharge from inpatient treatment to the [facility] Inpatient Encounter [id number] [id number] 5 JOSE ELIAS MAYO 03/28 [facility] Inpatient Encounter [id number] [id number] 4 ANTONIETAMin LEXANDRA E 03/28 [facility] Inpatient Encounter [id number] [id number] 0 JUHI MENDOZA JR 03/28 [facility] Inpatient Encounter [id number] [id number] 6 ANTONIETAMin LEXANDRA E 03/28 [facility] Inpatient Encounter 56036-5.65 [id number] 7 ANTONIETAMin LEXANDRA E 03/28 [facility] Inpatient Encounter [id number] [id number] 1 JUHI MENDOZA JR 03/28 [facility] Inpatient Encounter [id number] [id number] 4 ASHLEY MENDOZAER SON JR 03/29 [facility] Inpatient Encounter [id number] [id number] 2 ASHLEY MENDOZAER SON 03/29 [facility] Inpatient Encounter [id number] [id number] 1 JUHI MENDOZA 03/29 [facility] 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 34406-2.65 [id number] Diagnos is: ICD-10- CM 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 LETICIA Michael 03/29 [facility] Inpatient Encounter [id number] [id number] 5 Min FUNG LEXANDRA E 03/29 [facility] Inpatient Encounter [id number] [id number] 0 Min FUNG LEXANDRA E 03/29 [facility] Inpatient Encounter [id number] [id number] 7 Min FUNG LEXANDRA E 03/29 [facility] IP/OBS CNSLTJ NEW/EST MOD 60 [id number] [id number] Diagnos is: ICD-10- CM 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 s classif ied elsewhe re SHOSHANAPEPPER PATTON QAN 03/29 [facility] Inpatient Encounter [id number] [id number] 2 SARAH ROSE 03/29 [facility] Inpatient Encounter [id number] [id number] 3 JUHI MENDOZA 03/29 [facility] Inpatient Encounter [id number] [id number] 7 JUHI MENDOZA JR 03/29 [facility] Inpatient Encounter [id number] [id number] JUHI MENDOZA JR 03/30 [facility] Inpatient Encounter [id number] [id number] JUHI MENDOZA JR 03/30 [facility] Inpatient Encounter [id number] [id number] JOHNSON 03/30 [facility] Inpatient Encounter [id number] [id number] SARAH ROSE Y K 03/30 [facility] In[facility] Encounter [id number] [id number] MANGO ROSEE Y K 03/30 [facility] Inpatient Encounter [id number] [id number] MANPREETMANGO MELGOZAE Y K 03/30 [facility] Inpatient Encounter [id number] [id number] MANPREETMANGO MELGOZAE Y K 03/30 [facility] Outpatient Encounter [id number] [id number] 5 03/31 [facility] En[facility] [id number] [id number] MARIA ELENA,MANISH RID D 04/01 [facility] HC PRO PHONE CALL 5-10 MIN [id number] [id number] Diagnos is: ICD-10- CM Z71.9 Pantograph Engraver ing, unspeci fiMichelle Young ELIO 04/01 [facility] HC PRO PHONE CALL 5-10 MIN [id number] [id number] Diagnos is: ICD-10- CM Z71.9 Pantograph Engraver ing, unspeci fied HERMAN WAKEFIELD 04/02 [facility] Outpatient Encounter [id number] [id number] CIRILO LAGOS 04/02 [facility] Outpatient Encounter [id number] [id number] 04/03 [facility] Outpatient Encounter [id number] [id number] 04/10 [facility] LIT [id number] [id number] 3 Diagnos is: ICD-10- CM K03.6 Deposit s [accret ions] on teeth JUNGE,TERR I 04/30 [facility] Outpatient Encounter [id number] [id number] 4 05/06 [facility] Outpatient Encounter [id number] [id number] 05/06 [facility] OFFICE O/P EST LOW 20 MIN [id number] [id number] 5 Diagnos is: ICD-10- CM R35.0 Frequen cy of micturi tiTorres Collins 05/06 [facility] Outpatient Encounter [id number] [id number] 7 Diagnos is: ICD-10- CM N39.0 Urinary tract infecti on, site not specifi Dandy Calle 05/09 [facility] Outpatient Encounter [id number] [id number] 0 05/27 [facility] Outpatient Encounter [id number] [id number] 05/30 [facility] SYNCH AUDIO-ONLY EST LOW 20 [id number] [id number] Diagnos is: ICD-10- CM M19.90 Unspeci fied osteoar thritis , unspeci fied site MANISH ARREDONDO RID 05/30 [facility] Outpatient Encounter [id number] [id number] 05/30 [facility] Outpatient Encounter [id number] [id number] 5 06/03 [facility] O/P NEW MOD 45 MIN [id number] [id number] Diagnos is: ICD-10- CM Z87.440 Persona l history of urinary (tract) infecti ons DWIGHT MEIER 06/13 [facility] O/P EST MOD 30 MIN [id number] [id number] 3 Diagnos is: ICD-10- CM H35.62 Retinal 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, left eye KETAN, MERYL 06/20 [facility] O/P EST MOD 30 MIN [id number] [id number] Diagnos is: ICD-10- CM R31.0 Gross pascualur CHRISTOFER Terry 07/09 [facility] O/P EST MOD 30 MIN [id number] [id number] Diagnos is: ICD-10- CM N18.4 Chronic kidney disease , stage 4 (severe ) Carolina HARRIS I 07/18 [facility] SYNCH AUDIO-ONLY NEW SF 15 [id number] [id number] 3 Diagnos is: ICD-10- CM N18.4 Chronic kidney disease , stage 4 (severe ) Carolina HARRIS I 07/22 [facility] Outpatient Encounter [id number] [id number] 07/23 [facility] CORE BUILD-UP INCL ANY PINS 66793-3.65 [id number] 4 Diagnos is: ICD-10- CM K03.81 Cracked tooth KADOSH,NAF JESUS 07/29 [facility] Outpatient Encounter [id number] [id number] 08/10 [facility] SYNCH AUDIO-ONLY EST SF 10 [id number] [id number] 4 Diagnos is: ICD-10- CM 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 JASPER ESPINOSA 08/11 [facility] Outpatient Encounter [id number] [id number] 08/11 [facility] Outpatient Encounter [id number] [id number] 3 08/20 [facility] PONTIC PORCELAIN HIGH [place]FREY 92688-5.65 [id number] Diagnos is: ICD-10- CM K08.499 Partial loss of teeth due to oth cause, unspeci fied class KADOSH,NAF JESUS 09/09 [facility] OFFICE O/P EST LOW 20 MIN [id number] [id number] Diagnos is: ICD-10- CM N39.0 Urinary tract infecti on, site not specifi ed CHRISTOFER JACOB 10/06 [facility] Outpatient Encounter [id number] [id number] 10/15 [facility] Outpatient Encounter [id number] [id number] 5 10/19 [facility] O/P EST MOD 30 MIN [id number] [id number] Diagnos is: ICD-10- CM N18.4 Chronic kidney disease , stage 4 (severe ) MANISH ARREDONDO RID 10/21 [facility] Outpatient Encounter [id number] [id number] 1 10/22 [facility] OFFICE O/P EST LOW 20 MIN [id number] [id number] Diagnos is: ICD-10- CM L82.1 Other seborrh eic keratos is JENNIFER CHAMPION 10/28 [facility] DENTAL BITEWING FOUR IMAGES [id number] [id number] Diagnos is: ICD-10- CM K08.499 Partial loss of teeth due to oth cause, unspeci fied class MANUEL BOLES 10/29 [facility] UNSPECIFIE D PERIODONTA L PROC [id number] [id number] Diagnos is: ICD-10- CM K03.6 Deposit s [accret ions] on teeth EMILIE CARL N 10/29 [facility] OFF[facility] O/P EST MOD 30 MIN 88754-4.60 [id number] Diagnos is: ICD-10- CM N18.4 Chronic kidney disease , stage 4 (severe ) DUSTIN LIN N 11/26 [facility] N Procedures Combined list of: 1) Procedures from Department of Veterans Affairs facilities going back up to thelast 18 months, not all VA non-surgical procedures are included; 2) All procedures from the Department of Defense facilities. Procedure Procedure Type Code Date Perfomer Comments Sourza e Splint, prefabricated, wrist or ankle 7 ALEN WALKER DoD Modalities Whirlpool Treatment Modalities Whirlpool Treatment 65768 6 YOLANDA DAVIES DoD Exercises A isted Exercises For ROM Exercises Assisted Exercises For ROM 80564 6 YOLANDA DAVIES DoD Exercises A isted Exercises For ROM Exercises Assisted Exercises For ROM 54659 6 MAJOR, JU C DoD Modalities Whirlpool Treatment Modalities Whirlpool Treatment 55686 6 MAJOR, JU C DoD Splinting Wrist Static Splinting Wrist Static 89204 6 KENTON ARREDONDO DoD Modalities Whirlpool Treatment Modalities Whirlpool Treatment 70226 6 JOSÉ MIGUEL IQBAL DoD Exercises A isted Exercises For ROM Exercises Assisted [place]ercises For ROM [address] [facility] Modalities Whirlpool Treatment Modalities Whirlpool Treatment [address] [facility] Exercises A isted Exercises For ROM Exercises Assisted Exercises For ROM 55678 6 JOSÉ MIGUEL IQBAL Splinting Wrist Static Splinting Wrist Static [address] [facility] Orthopedic Casting Short Arm Orthopedic Casting Short Arm [address] [facility] SPLINT, PREFABRICATED, WRIST OR ANKLE 7 [facility] OCCUPATIONAL THERAPY RE-EVALUATION 6 [facility] THERAPEUTIC PROCEDURE, 1 OR MORE AREAS, EACH 15 MINUTES; THERAPEUTIC EXERCISES TO DEVELOP STRENGTH AND ENDURANCE, RANGE OF MOTION AND FLEXIBILITY 6 [facility] APPLICATION OF A MODALITY TO 1 OR MORE AREAS; WHIRLPOOL 6 [facility] CAST SUPPLIES, SHORT ARM SPLINT, ADULT (11 YEARS +), PLASTER 6 [facility] THERAPEUTIC PROCEDURE, 1 OR MORE AREAS, EACH 15 MINUTES; THERAPEUTIC EXERCISES TO DEVELOP STRENGTH AND ENDURANCE, RANGE OF MOTION AND FLEXIBILITY 6 [facility] THERAPEUTIC PROCEDURE, 1 OR MORE AREAS, EACH 15 MINUTES; THERAPEUTIC EXERCISES TO DEVELOP STRENGTH AND ENDURANCE, RANGE OF MOTION AND FLEXIBILITY 6 [facility] OCCUPATIONAL THERAPY EVALUATION 6 [facility] CAST SUPPLIES, SHORT ARM SPLINT, ADULT (11 YEARS +), PLASTER 6 [facility] APPLICATION, CAST; ELBOW TO FINGER 6 [facility] INJECTION, BETAMETHASONE ACETATE 3 MG AND BETAMETHASONE SODIUM PHOSPHATE [address] [facility] OCCUPATIONAL THERAPY RE-EVALUATION 6 [facility] OCCUPATIONAL THERAPY RE-EVALUATION 6 [facility] APPLICATION OF A MODALITY TO 1 OR MORE AREAS; WHIRLPOOL 6 [facility] APPLICATION OF A MODALITY TO 1 OR MORE AREAS; IRLPOOL 6 [facility] RANGE OF MOTION MEASUREMENTS AND REPORT (SEPARATE PROCEDURE); EACH EXTREMITY (EXCLUDING HAND) OR EACH TRUNK SECTION (SPINE) 5 DoD APPLICATION OF A MODALITY TO 1 OR MORE AREAS; WHIRLPOOL 5 [facility] RANGE OF MOTION MEASUREMENTS AND REPORT (SEPARATE PROCEDURE); EACH EXTREMITY (EXCLUDING HAND) OR EACH TRUNK SECTION (SPINE) 5 DoD APPLICATION OF A MODALITY TO 1 OR MORE AREAS; WHIRLPOOL 5 DoD APPLICATION OF A MODALITY TO 1 OR MORE AREAS; WHIRLPOOL 5 DoD SUPP &MATERIAL (EXCEPT SPECTACLE),PROVID, THE PHYS/OTH QUALIFIED HEALTH CORRESPONDENCE RENEW CLERK OVER &ABOVE THOSE USUALLY INCLD W THE OFFICE VISIT/OTH SER RENDERED (LIST DRUG,TRAYS,SUPP,OR MATERIAL PROVID) 5 DoD CAST SUPPLIES, SHORT ARM SPLINT, ADULT (11 YEARS +), PLASTER 5 DoD CAST SUPPLIES, SHORT ARM CAST, ADULT (11 YEARS +), FIBERGLASS 5 DoD SCREENING PAPANICOLAOU SMEAR; OBTAINING, PREPARING AND CONVEYANCE OF CERVICAL OR VAGINAL SMEAR TO LABORATORY 5 DoD APPLICATION OF SHORT ARM SPLINT (FOREARM TO HAND); DYNAMIC 5 DoD BINOCULAR MICROSCOPY (SEPARATE DIAGNOSTIC PROCEDURE) 3 DoD TYMPANOMETRY (IMPEDANCE TESTING) 3 DoD CYTOPATHOLOGY, SMEARS, CERVICAL OR VAGINAL, UP TO THREE SMEARS; SCREENING BY OB GYN PHYSICIAN ASSISTANT UNDER PHYSICIAN SUPERVISION 2 DoD PHYSICAL THERAPY EVALUATION 1 DoD COLLECTION OF VENOUS BLOOD BY VENIPUNCTURE 1 DoD INTRAVENOUS INFUSION FOR THERAPY/DIAGNOSIS, ADMINISTERED BY PHYSICIAN OR UNDER DIRECT SUPERVISION OF PHYSICIAN; UP TO ONE HOUR 1 DoD APPLICATION OF SHORT ARM SPLINT (FOREARM TO HAND); STATIC 1 DoD OTHER VAGINAL HYSTERECTOMY 7 DoD REPAIR OF CYSTOCELE AND RECTOCELE 7 DoD OTHER REPAIR OF VAGINA 7 DoD OTHER OPERATIONS ON CUL-DE-SAC 7 DoD RIGHT EYE PHACO CATARACT EXTRACTION WITH LENS IMPLANT XCAPSL CTRC RMVL W/O ECP 99482 4 JOANIE JAIMES [facility] Social History Combined list of available smoking, tobacco, and other social history from 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 Social History Type Response Date Comment Sourc e Tobacco smoking status NHIS VA-TOBACCO USE FORMER CIGARETTES 10/15/2024 [facility] History of tobacco use VA-TOBACCO NEVER USED OTHER TYPE 10/15/2024 [facility] History of tobacco use ORYX ADMIT TOBACCO SCREEN REFUSED 03/28/2024 [facility] History of tobacco use VA-TOBACCO FORMER USER 09/24/2023 [facility] History of tobacco use VA-TOBACCO FORMER USER 07/21/[address] [facility] History of tobacco use VA-TOBACCO QUIT 15 YRS OR MORE 07/01/2021 [facility] History of tobacco use ORYX ADMIT TOBACCO SCREEN NO 04/06/2021 [facility] History of tobacco use VA-TOBACCO FORMER USER 07/26/2020 [facility] History of tobacco use ORYX ADMIT TOBACCO SCREEN NO 08/13/2019 [facility] History of tobacco use VA-TOBACCO QUIT 15 YRS OR MORE 02/18/2019 [facility] History of tobacco use VA-TOBACCO FORMER USER 08/27/2017 [facility] History of tobacco use QUIT TOBACCO >7 YEARS AGO 08/27/2017 Melanie [facility] History of tobacco use QUIT TOBACCO >7 YEARS AGO 02/26/2017 [facility] History of tobacco use LIFETIME NON-USER OF TOBACCO 06/13/2016 [facility] History of tobacco use QUIT TOBACCO >7 YEARS AGO 02/16/2015 [facility] History of tobacco use QUIT TOBACCO >7 YEARS AGO 03/19/2014 [facility] History of tobacco use QUIT TOBACCO >7 YEARS AGO 09/23/2012 Melanie [facility] History of tobacco use QUIT TOBACCO >7 YEARS AGO 11/26/2008 [facility] History of tobacco use H/O TOBACCO USE 08/20/2007 19yrs [facility] History of tobacco use H/O TOBACCO USE 11/14/2006 [facility] History of tobacco use H/O TOBACCO USE 11/23/2005 [facility] History of tobacco use H/O TOBACCO USE 10/05/2004 quit 15 yrs [facility] This section is an empty social history section. [facility] Plan of Care List of future care activities from Department of 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 Additional future care activities may be listed in the Assessment and Plan section. Date/Time Care Activity Care Activity Detail Facili ty 12/24/2024 AMBULATORY - NONE AMBULATORY - NONE [facility] Advance Directives List of completed, amended, or rescinded Advance Directives on record at Department of [facility] Affairs facilities. An actual copy of the Directive is not included. Date Advance Directive Provider Source 11/18/2021 STATE-AUTHORIZED POR TABLE ORDERS ELIDIA NOONAN [facility]
--- OUTSIDE RECORDS SUMMARY | 2024-11-30 14:54 | XMS_ITS | Encounter Summary ---
Author Name [facility] [place] [facility] [place] Address [address] [place] [address] Care Team Providers Care Demand Planner Name Role Phone MARIA ELENA MAN Primary [...] PRESCRIPT ION NONE Mar 16, 2006 NONE [id number] [place] PATIENT [facility] PREFERRED PROVIDER ORGANIZAT ION (PPO) DEPAR TMENT OF DEFEN S Mar 16, 2006 [id number] [place] PATIENT MEDICARE (WNR) MEDICARE (M) PART B Nov 14, 2020 PART B [id number] [phone] [place] PATIENT MEDICARE (WNR) MEDICARE (M) PART A Nov 14, 2020 PART A [id number] [place] PATIENT Selected Encounter This section includes the information on record at [place] for the Encounter. Date/Time Encounter Type Encounter Description Reason Pro vider Source IHE Encounter Template Text not used by [facility] Advance Directives: All historical and current Section [...] 2021 STATE-AUTHORIZED POR TABLE ORDERS ELIDIA NOONAN [facility]
--- OUTSIDE RECORDS SUMMARY | 2024-11-30 14:54 | XMS_ITS | Encounter Summary ---
Author Name [facility] [place] [facility] [place] [facility] [place] Address [address] [place] [address] Care Team Providers Care Relocation Associate Name Role Phone MARIA ELENA MAN Primary [...] PRESCRIPT ION NONE Mar 16, 2006 NONE [id number] MALAVE PATIENT [facility]ETNA [facility] PREFERRED PROVIDER ORGANIZAT ION (PPO) DEPAR TMENT OF DEFEN S Mar 16, 2006 [id number] SHELBY BRA PATIENT MEDICARE (WNR) MEDICARE (M) PART B Nov 14, 2020 PART B [id number] [phone] SHELBY BRA PATIENT MEDICARE (WNR) MEDICARE (M) PART A Nov 14, 2020 PART A [id number] [place] BRA PATIENT Selected Encounter This section includes the information on record at [place] for the Encounter. Date/Time Encounter Type Encounter Description Reason Provider Source Dec 11, 2023 11:00 AM POSTOP FOLLOW-UP VISIT OPHTHALMOLOGY ICD-10-CM Z96.1 Presence of intraocular lens SHAHIDA TORRES Encounter Template Text not used by [facility] Assessments - Encounter Diagnoses This section includes the primary and secondary diagnoses documented for the Encounter. Date/Time Primary/Secondary Diagnosis Diagnosis Name Provider Source Dec 11, 2023 10:49 AM PRIMARY Presence of intraocular lens JOANIE JAIMES [facility] Plan of Treatment: Future Appointments (+ 6 months) and Future Tests (+/- 45 days) The Plan of Treatment section includes future care activities for the patient from all [place] treatmentfacilities. This section includes future appointments and future orders which are active, pending or scheduled. Future Appointments This section includes appointments that were scheduled to occur 6 months from the date of the Encounter, up to a maximum of 20 appointments. The data comes from all [place] treatment facilities. Appointment Date/Time Appointment Type Appointme nt Facility Name Jan 30, 2024 11:15 AM AMBULATORY - MEDICINE [facility] Mar 25, 2024 10:30 AM AMBULATORY - MEDICINE [facility] Mar 27, 2024 01:00 PM AMBULATORY - NEUROLOGY [facility] Mar 28, 2024 10:49 AM AMBULATORY - MEDICINE [facility] Apr 02, 2024 10:00 AM AMBULATORY - MEDICINE [facility] Apr 14, 2024 02:30 PM AMBULATORY - MEDICINE [facility] Apr 30, 2024 02:00 PM AMBULATORY - NONE [facility] May 06, 2024 10:30 AM AMBULATORY - NONE [facility] May 30, 2024 10:00 AM AMBULATORY - MEDICINE [facility] May 30, 2024 01:30 PM AMBULATORY - NONE [facility] Active, Pending, and Scheduled Orders This section includes a listing of several types of active, pending, and scheduled orders, including clinic medications orders, diagnostic test orders, procedure orders and consult orders; where the start date of the order is 45 days before the date of the Encounter or 45 days after the date of theEncounter. The data comes from all [place] treatment facilities. Test Date/Time Test Type Test Details Facility Name Jan 02, 2024 12:00 AM Laboratory - Chemi stry Order RENAL PANEL GREEN LI/HEP BLD/PLAS PLASMA SP [facility] Lab Results: +/- 30 days of the encounter This section includes the Chemistry and Hematology Lab Results on record with [place] for the patient. Radiology Reports and Pathology Reports are provided separately, in subsequent sections. Lab Results This section contains the Chemistry/Hematology Results that were resulted 30 days before or 30 daysafter the date of the Encounter. Date/Time Source Result Type Result - Unit Interpretation Reference Range Specimen Type Comment Dec 05, 2023 11:49 AM [facility] PTH, INTACT (STL) SERUM Specimen Type: SERUM No comment entered. Ordering Provider: MARISOL LIN Report Released Date/Time: Dec 05, 2023 08:15 AM Reporting Lab: [facility] [address] [address] Performing Lab: [facility] [address] [address] PTH, INTACT (STL) 42.60 pg/mL 8.7-77.7 Dec 05, 2023 11:49 AM [facility] VITAMIN D, 25-HYDROXY SERUM Specimen Type: SE RUM No comment entered. Ordering Provider: HOWIE LIN Report Released Date/Time: Dec 05, 2023 08:15 AM Reporting Lab: [facility] [address] [address] Performing Lab: [facility] [address] [facility] [address] VITAMIN D, 25-HYDROXY 42.6 ng/mL 30-96 Dec 05, 2023 11:49 AM [facility] RENAL PANEL PLASMA Specimen Type: PLASM A Comment: No hemolysis noted. Ordering Provider: HOWIE LIN Report Released Date/Time: Dec 05, 2023 08:15 AM Reporting Lab: [facility] [address] [facility] [address] Performing Lab: [address] [address] CREATININE 2.05 mg/dL H 0.6-1.1 UREA NITROGEN 31.8 mg/dL H 9.0-25.0 GLUCOSE 102 mg/dL H 72-99 SODIUM 141 meq/L 136-145 POTASSIUM 4.3 meq/L 3.5-5 CHLORIDE 106 meq/L 98-107 CARBON DIOXIDE 23 meq/L 22-31 CALCIUM 8.8 mg/dL 8.4-10.4 PHOSPHOROUS 5.3 mg/dL H 2.3-4.7 ALBUMIN 4.4 g/dL 3.4-5 EGFR (CKD-EPI 2020) 25.9 >60 Dec 05, 2023 11:49 AM [facility] CBC BLOOD Specimen Type: BLOOD No comment entered. Ordering Provider: HOWIE LIN Report Released Date/Time: Dec 05, 2023 08:15 AM Reporting Lab: [address] [address] Performing Lab: [address] [address] WBC 9.0 10*3/uL 3.6-11.2 RBC 3.78 10*6/uL [...] 0.60 BASOPHILS, ABSOLUTE 0.02 10*3/uL 0.00-0. 20 Social History: Smoking Status (Most current) and Tobacco Use (All prior to encounter date) This section includes the most current, and the historical, smoking and tobacco- related health factors from the [place] facility where the Encounter took place. Current Smoking Status This section includes the most current smoking, or tobacco-related health factor, from the [place] facility where the Encounter took place. Date/Time Current Smoking Status Comment Abbie ity Sep 24, 2023 01:20 PM VA-TOBACCO FORMER USER [facility] Tobacco Use History This section includes a history of the smoking, or tobacco-related health factors, that were collected on or before the date of the Encounter. The data comes from the [place] facility where the Encounter took place. Date/Time Smoking Status/Tobacco Use Comment F eyad Sep 24, 2023 01:20 PM VA-TOBACCO QUIT 15 YRS OR MORE [facility] Apr 06, 2021 07:54 PM ORYX ADMIT TOBACCO SCREEN NO [facility] Jul 26, 2020 09:33 AM VA-TOBACCO FORMER USER [facility] Jul 26, 2020 09:33 AM VA-TOBACCO QUIT 15 YRS OR MORE [facility] Aug 13, 2019 05:31 PM ORYX ADMIT TOBACCO SCREEN NO [facility] Nov 26, 2008 11:49 AM QUIT TOBACCO >7 YEARS AGO [facility] Advance Directives: All historical and current Section Date Range: From patient's date of to the date document was created. This section includes ALL of a patient's completed or amended [place] Advance and Rescinded Directives. The entries below indicate that a directive exists for the patient, but an actual copy is not included with this document. The data comes from all [place] facilities. Date Advance Directives Provider Source Nov 18, 2021 STATE-AUTHORIZED POR TABLE ORDERS ELIDIA NOONAN [facility] Encounter Notes: All associated encounter notes This section contains the clinical notes associated to the Encounter. Date/Time Encounter Note(s) Provider Source Dec 11, 2023 10:29 AM OPHTHALMOLOGY NOTE : LOCAL TITLE: OPHTHALMOLOGY NOTE STL STANDARD TITLE: OPHTHALMOLOGY NOTE DATE OF NOTE: DEC 11, 2023@10:29 ENTRY DATE: DEC 11, 2023@10:29:57 AUTHOR: JOANIE JAIMES EXP COSIGNER: PEMA TORRES URGENCY: STATUS: COMPLETED POM#1 s/p CEIOL OD Vision improved. No F/F/C or pain. Gtts: PF daily, following taper VAsc OD: 20/25 PHNI MRx OD: -0.50 + 0.50 x 120 => 20/20 OS: +1.75 SPH => 20/20 ADD: +2.50 Ta OD: 12 SLEx: OD L/L WNL C/S W/q K Clear AC D&Q I R/R L PCIOL well-positioned A/P: #POM#1 s/p CEIOL OD - Patient pleased with vision, unremarkable exam - taper off PF as instructed, 5 more days left. - MRx today # SECOND EYE - Patient not having issues, will defer and return when ready RTC 6 months optometry for routine exam /es/ JOANIE JAIMES MD Resident Physician, Ophthalmology Signed: 12/11/2023 10:49 /es/ PEMA TORRES MD Staff Physician, Ophthalmology Cosigned: 12/18/2023 10:36 JOANIE JAIMES [facility]
--- NOTE | 2024-11-30 15:07 | ED.WOUNDLAC ---
HPI - Wound/Laceration General Chief Complaint: Wound/Laceration Stated Complaint: fall/skin irritation Time Seen by Provider: 11/30/24 14:42 patient presents to the [facility] with complaints of increased pain and redness surrounding an abrasion to right knee. Patient noted she had a slip and fall on concrete about 1 week ago and had a skin tear to right knee and right elbow. Patient noted she has been taking care of these at home but believes the right knee may be infected. Denies fever, chills, body aches, or drainage from the areas. Related Data Home Medications ?Medication ?Instructions ?Recorded ?Confirmed ?Last Taken ?Type atenolol 25 mg tablet 25 mg PO DAILY 04/18/22 03/22/24 02/22/24 History atorvastatin 20 mg tablet 20 mg PO HS 04/18/22 03/22/24 02/22/24 History bupropion HCl 150 mg 24 hr tablet, 150 mg PO BID 04/18/22 03/22/24 02/22/24 History extended release (Wellbutrin XL) allopurinol 100 mg tablet 100 mg PO DAILY 03/22/24 03/22/24 Unknown History calcium carbonate 500 mg PO DAILY 03/22/24 03/22/24 Unknown History ferrous sulfate 325 mg (65 mg 325 mg PO DAILY 03/22/24 03/22/24 Unknown History iron) tablet magnesium 250 mg tablet 250 mg PO BID 03/22/24 03/22/24 Unknown History omega 3-dha 120 mg-epa 180 mg-fish 2 cap PO BID 03/22/24 03/22/24 Unknown History oil 600 mg capsule (Extreme [place]-3) tramadol 50 mg tablet 50 mg PO Q6H PRN Pain 03/22/24 03/22/24 Unknown History Allergies Allergy/AdvReac Type Severity Reaction Status Date / Time No Known Allergies Allergy Verified 11/30/24 14:53 Review of Systems Constitutional: Constitutional: Reports as per HPI, Denies chills, Denies fatigue, Denies fever(s) and Denies weakness Eyes: Eyes: Reports no additional eye complaints ENT: Reports system reviewed and no additional complaints, except as documented Cardiovascular: Cardiovascular: Reports no additional cardiovascular complaints Respiratory: Respiratory: Reports no additional respiratory complaints Gastrointestinal: Gastrointestinal: Reports no additional gastrointestinal complaints Genitourinary: Genitourinary: Reports no additional female genitourinary complaints Musculoskeletal: Musculoskeletal: Reports as per HPI, Denies arthralgias and Denies joint swelling Integumentary/Breasts: Skin/Breast: Reports as per HPI, Denies pruritus, Reports erythema, Denies rash and Denies skin ulcer Comments: Skin tear right knee, skin tear right elbow Neurologic: Reports as per HPI, Denies numbness and Denies weakness Psychiatric: Psychiatric: Reports no additional psychiatric complaints Endocrine: Endocrine: Reports no additional endocrine complaints Hematologic/Lymphatic: Hematologic/Lymphatic: Reports no additional hematologic/lymphatic complaints Allergic/Immunologic: Allergic/Immunologic: Reports no additional allergic/immunologic complaints [facility] Past Medical History Medical History (Updated 11/30/24 @ 15:15 by Alma Jimenez, GUY-C) Renal osteodystrophy due to hyperparathyroidism History of UTI Osteoarthritis Chronic renal disease, stage IV Colitis Hypertension Hypercholesteremia Surgical History Surgical History History of left shoulder replacement History of orthopedic surgery bilateral wrist H/O: hysterectomy Social History Social History (Updated 03/23/24 @ 08:50 by Heidy Howe DO) Social History: She is and has 1 son. She reports that she moved from assisted living to a senior apartment complex due to difficulty continuing to afford the assisted living. She served in the [employer] for 10 and half years prior to retiring. 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 She reported that she smoked for a couple of years when she was young and numb. She is does drink an alcoholic beverage every once in a while. She denies illicit substance use. Code status: Full code Surrogate decision maker: Spenser (Son) Smoking status: Former smoker Alcohol intake: current Drinks per week: 1 Substance use: never Substance use type: does not use Do You Feel Safe in your Home?: Yes Lack of Transportation: No Lack of Food: Never True Current Housing: I Have Housing Concerned About Future Housing: No Difficulty Paying Gas/Electric Bills: No Difficulty Paying for Meds: No Currently Unemployed: No Education: High School Diploma/GED Difficulty w/ Childcare or Family Care: No Living arrangements: alone Spiritual care concerns: No Exam Const: General: healthy appearing and no acute distress Nutritional Appearance: well nourished Orientation/consciousness: patient oriented x3 Limitations: no limitations Resp: Effort & Inspection: normal respiratory effort Auscultation: clear to auscultation bilaterally Cardio: Rate: regular rate Rhythm: regular rhythm Skin: General skin exam: normal color Rashes: no rashes Wounds: wounds noted Other: abnormal large skin tear noted to right knee 5 cm length by 3 cm in width, noted surrounding cellulitis and minimal warmth and swelling noted. No active drainage or crusting. C-shaped skin tear right lower arm- no swelling, erythema, warmth, or drainage noted. Scabbed skin tear noted to right elbow, healing well with no erythema, warmth, swelling, or drainage noted. Neuro: General: patient oriented x3 and moves all extremities Speech: normal speech Gait exam (Neuro): Normal gait present Extrem: General: no clubbing, cyanosis or edema, no pedal edema and edema ( Minimal surrounding right knee skin tear) Psych: Mental Status: mental status grossly normal Affect: normal affect Attitude: cooperative Course Course Level of Care: Express Care Visit Vital Signs Vital signs: Vital Signs Temperature 97.6 F 11/30/24 14:53 Pulse Rate 64 11/30/24 14:53 Respiratory Rate 18 11/30/24 14:53 Blood Pressure 130/75 11/30/24 14:53 Pulse Oximetry 99 11/30/24 14:53 Oxygen Delivery Room Air 11/30/24 14:53 Temperature 97.6 F 11/30/24 14:53 Pulse Rate 64 11/30/24 14:53 Respiratory Rate 18 11/30/24 14:53 Blood Pressure 130/75 11/30/24 14:53 Pulse Oximetry 99 11/30/24 14:53 Oxygen Delivery Room Air 11/30/24 14:53 MDM - Wound/Laceration MDM Narrative Medical decision making narrative: minimal cellulitis right knee over skin tear. Educated patient on wound care. Discharge instructions reviewed with patient, as well as provided in writing per nursing staff. The instructions also include specific and strict return/GO TO THE ER as well as f/u information. All questions have been answered, and the patient deny any further questions with discharge and discharge plan. Differential Diagnosis Differential diagnosis: Likely laceration, abscess, abrasion and avulsion of skin Medical Records Attestation: I reviewed the patient's medical records. Discharge Plan Discharge Clinical Impression: Cellulitis of knee, right, Abrasion of elbow, right, Open wound of right knee Patient Disposition: Home Condition: Stable Instructions: Antibiotic Form, Cellulitis (ED), Abrasion (ED) Additional Instructions: Clean with soap and water only; Avoid using alcohol and peroxide. Elevate the affected area if possible Alternate Tylenol/ibuprofen for as needed for pain Acetaminophen(Tylenol) 650-1000mg every 4-6hours with max of 4000mg/day. Nonsteroidal anti-inflammatory agent (NSAIDs-ibuprofen): 400mg every 4-6hours with max 2400mg/day Take antibiotic until it's gone. Please schedule a follow up visit with your personal physician for further evaluation and treatment within 3-5days OR if your symptoms persist, change or worsen significantly before you can contact your personal physician then please, without delay, go to the emergency department for further evaluation. Patient Language: Mohawk Prescriptions: New cephalexin 500 mg capsule 500 mg PO Q12H Qty: 14 0RF mupirocin [Centany] 2 % ointment 1 applic topical BID Qty: 22 0RF No Action atorvastatin 20 mg Tablet 20 mg PO HS bupropion HCl [Wellbutrin XL] 150 mg Tablet Extended Release 24 Hr 150 mg PO BID Patient Comments: Patient unsure of dosing. Awaiting medical records. atenolol 25 mg Tablet 25 mg PO DAILY calcitriol [Rocaltrol] 0.25 mcg Capsule 0.25 mcg PO BID Qty: 30 0RF calcium carbonate 500 mg calcium (1,250 mg) tablet,chewable 500 mg PO DAILY allopurinol 100 mg Tablet 100 mg PO DAILY tramadol 50 mg Tablet 50 mg PO Q6H PRN (Reason: Pain) ferrous sulfate 325 mg (65 mg iron) Tablet 325 mg PO DAILY magnesium 250 mg Tablet 250 mg PO BID Extreme [place]-3 120-180-600 mg Capsule 2 cap PO BID Follow-up/Referrals: UNKNOWN,DOCTOR [Primary Care Provider] - Time of Disposition: 15:16
== END 2024-11-30 15:18 | disposition home or self-care (01) ==
PROVIDERS: Emergency Provider Nurse Practitioner Family
DX: S81.011A Laceration without foreign body, right knee, initial encounter (principal); L03.115 Cellulitis of right lower limb; W01.0XXA Fall on same level from slipping, tripping and stumbling without subsequent striking against object, initial encounter; S50.311A Abrasion of right elbow, initial encounter; I12.9 Hypertensive chronic kidney disease with stage 1 through stage 4 chronic kidney disease, or unspecified chronic kidney disease; N18.4 Chronic kidney disease, stage 4 (severe); E78.00 Pure hypercholesterolemia, unspecified; N25.0 Renal osteodystrophy; E21.3 Hyperparathyroidism, unspecified; Z96.612 Presence of left artificial shoulder joint; Z87.891 Personal history of nicotine dependence
CPT/HCPCS: 99213; G0463

== ENCOUNTER 2025-03-08 12:51 | Emergency (ER) | payer MEDICARE, SELFPAY ==
--- OUTSIDE RECORDS SUMMARY | 2025-03-08 12:53 | XMS_ITS | Clinical Summary ---
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
--- NOTE | 2025-03-08 12:56 | ED.WOUNDLAC ---
HPI - Wound/Laceration General Chief Complaint: Wound/Laceration Stated Complaint: skin tear Time Seen by Provider: 03/08/25 12:56 Source: patient Mode of arrival: ambulatory Limitations: no limitations History of Present Illness HPI narrative: Hali is a 69 year old female patient presenting to the clinic today with c/o skin tear to her left anterior leg x 4 days. She reports is it becoming more red, painful, and warm to touch. Has been applying mupirocin cream to it. Tetanus unk. Denies any fever, chills, or body aches. Related Data Home Medications ?Medication ?Instructions ?Recorded ?Confirmed ?Last Taken ?Type atenolol 25 mg tablet 25 mg PO DAILY 04/18/22 03/22/24 02/22/24 History atorvastatin 20 mg tablet 20 mg PO HS 04/18/22 03/22/24 02/22/24 History bupropion HCl 150 mg 24 hr tablet, 150 mg PO BID 04/18/22 03/22/24 02/22/24 History extended release (Wellbutrin XL) allopurinol 100 mg tablet 100 mg PO DAILY 03/22/24 03/22/24 Unknown History calcium carbonate 500 mg PO DAILY 03/22/24 03/22/24 Unknown History ferrous sulfate 325 mg (65 mg 325 mg PO DAILY 03/22/24 03/22/24 Unknown History iron) tablet magnesium 250 mg tablet 250 mg PO BID 03/22/24 03/22/24 Unknown History omega 3-dha 120 mg-epa 180 mg-fish 2 cap PO BID 03/22/24 03/22/24 Unknown History oil 600 mg capsule (Extreme [place]-3) tramadol 50 mg tablet 50 mg PO Q6H PRN Pain 03/22/24 03/22/24 Unknown History Held on 03/24/24. Instructions: Resume on 03/31/24. After follow up with PCP Allergies Allergy/AdvReac Type Severity Reaction Status Date / Time No Known Allergies Allergy Verified 03/08/25 13:03 Review of Systems Review of Systems: Pertinent positives per HPI. Patient denies any fever, chills, rash, headache, visual changes, dizziness, cough, runny nose, sore throat, shortness of breath, chest pain, palpitations, nausea, vomiting, diarrhea, constipation, abdominal pain, or any urinary issues. [facility] Past Medical History Medical History Renal osteodystrophy due to hyperparathyroidism History of UTI Osteoarthritis Chronic renal disease, stage IV Colitis Hypertension Hypercholesteremia Surgical History Surgical History History of left shoulder replacement History of orthopedic surgery bilateral wrist H/O: hysterectomy Social History Social History Social History: She is and has 1 son. She reports that she moved from assisted living to a senior apartment complex due to difficulty continuing to afford the assisted living. She served in the [email or web address] for 10 and half years prior to retiring. 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 She reported that she smoked for a couple of years when she was young and numb. She is does drink an alcoholic beverage every once in a while. She denies illicit substance use. Code status: Full code Surrogate decision maker: Spenser (Son) Smoking status: Former smoker Alcohol intake: current Drinks per week: 1 Substance use: never Substance use type: does not use Do You Feel Safe in your Home?: Yes Lack of Transportation: No Lack of Food: Never True Current Housing: I Have Housing Concerned About Future Housing: No Difficulty Paying Gas/Electric Bills: No Difficulty Paying for Meds: No Currently Unemployed: No Education: High School Diploma/GED Difficulty w/ Childcare or Family Care: No Living arrangements: alone Spiritual care concerns: No Comments At the time of my signature, I reviewed and agree with the nursing past medical, surgical, social, and family history. There is no relevant family history pertinent to the patient complaint. Exam Narrative: General: Well-developed, well nourished, in no apparent distress Head: Normocephalic, atraumatic. Cardio: Regular rate and rhythm, s1 and s2 normal, no murmur appreciated. Resp: Clear to auscultation bilaterally, no rhonchi, rales, wheezing or rubs. Integumentary: [place], warm, and dry, 2x2 cm skin tear to the left lower anterior leg with localized redness, erythema, and tenderness to palpation without palpable abscess. No drainage Course Course Emergency Course: Portions of this record may have been created with voice recognition software. Level of Care: Express Care Visit Vital Signs Vital signs: Vital Signs Temperature 36.2 C L 03/08/25 13:02 Pulse Rate 65 03/08/25 13:02 Respiratory Rate 18 03/08/25 13:02 Blood Pressure 153/71 H 03/08/25 13:02 Pulse Oximetry 100 03/08/25 13:02 Oxygen Delivery Room Air 03/08/25 13:02 Temperature 36.2 C L 03/08/25 13:02 Pulse Rate 65 03/08/25 13:02 Respiratory Rate 18 03/08/25 13:02 Blood Pressure 153/71 H 03/08/25 13:02 Pulse Oximetry 100 03/08/25 13:02 Oxygen Delivery Room Air 03/08/25 13:02 Vital signs reviewed MDM - Wound/Laceration MDM Narrative Medical decision making narrative: At the time of visit patient is resting comfortably on the exam table. Patient appears to be nontoxic. C/o skin tear to her left anterior leg x 4 days. She reports is it becoming more red, painful, and warm to touch. Has been applying mupirocin cream to it. Tetanus unk. Denies any fever, chills, or body aches. On exam patient has a 2x2 cm skin tear to the left anterior lower leg with tenderness to palpation, no palpable abscess, mild erythema, no drainage. Tdap ordered. Wound was cleansed using antiseptic wound wash and sterile 4x4s. Patted dry. Will apply patient's mupirocin cream with a Telfa and Coban dressing. Medications: Tdap 0.5 mL IM given in the clinic today Plan: I suspect patient has a skin tear infection to the left lower extremity. Prescription for cephalexin was sent to the pharmacy. May continue use of mupirocin cream. Follow-up with PCP in 3 days for wound check. Go the ER if symptoms worsen. Supportive measures were discussed with the patient and they voiced understanding discharge instructions and agrees to treatment plan. Return precautions reviewed Differential Diagnosis Differential diagnosis: Likely laceration, abscess, abrasion, avulsion of skin and other (Wound infection) Discharge Plan Discharge Clinical Impression: Infected skin tear Patient Disposition: Home Condition: Stable Instructions: Antibiotic Form, Wound Infection (ED), Skin Tear (ED) Additional Instructions: Tetanus shot was updated in the clinic today Leave bandage on for 24 hours then may remove and apply band aide covering as needed. Keep wound clean and dry Take cephalexin as prescribed Watch for signs and symptoms of worsening infection- redness, streaking, swelling, purulent discharge, or increase in pain. Follow up with your PCP in 3 days for wound check Go to the ED if symptoms worsen Patient Language: Bangladeshi Prescriptions: New cephalexin 500 mg capsule 500 mg PO Q8H 7 Days Qty: 21 0RF No Action cephalexin 500 mg capsule 500 mg PO Q12H Qty: 14 0RF mupirocin [Centany] 2 % ointment 1 applic topical BID Qty: 22 0RF atorvastatin 20 mg Tablet 20 mg PO HS bupropion HCl [Wellbutrin XL] 150 mg Tablet Extended Release 24 Hr 150 mg PO BID Patient Comments: Patient unsure of dosing. Awaiting medical records. atenolol 25 mg Tablet 25 mg PO DAILY calcitriol [Rocaltrol] 0.25 mcg Capsule 0.25 mcg PO BID Qty: 30 0RF calcium carbonate 500 mg calcium (1,250 mg) tablet,chewable 500 mg PO DAILY allopurinol 100 mg Tablet 100 mg PO DAILY tramadol 50 mg Tablet 50 mg PO Q6H PRN (Reason: Pain) ferrous sulfate 325 mg (65 mg iron) Tablet 325 mg PO DAILY magnesium 250 mg Tablet 250 mg PO BID Extreme [place]-3 120-180-600 mg Capsule 2 cap PO BID Follow-up/Referrals: UNKNOWN,DOCTOR [Primary Care Provider] Time of Disposition: 13:07 Quality NIHSS Nursing Documentation ED NIHSS nursing documentation: reviewed/agree
[2025-03-08 13:02] VITALS: BP 153/71; PULSE 65; RESP 18; TEMP 36.2; O2SAT 100
[2025-03-08] MEDS: TETANUS,DIPHTHERIA,AC PERTUSSIS ADULT (0.5 ML) BOOSTRIX IM (13:10)
== END 2025-03-08 13:17 | disposition home or self-care (01) ==
PROVIDERS: Emergency Provider Nurse Practitioner Family
DX: S81.812A Laceration without foreign body, left lower leg, initial encounter (principal); L08.9 Local infection of the skin and subcutaneous tissue, unspecified; X58.XXXA Exposure to other specified factors, initial encounter; Z23 Encounter for immunization; I12.9 Hypertensive chronic kidney disease with stage 1 through stage 4 chronic kidney disease, or unspecified chronic kidney disease; N18.4 Chronic kidney disease, stage 4 (severe); E78.00 Pure hypercholesterolemia, unspecified; M19.90 Unspecified osteoarthritis, unspecified site; Z96.612 Presence of left artificial shoulder joint; N25.0 Renal osteodystrophy
CPT/HCPCS: 90471; 90715; 99213; G0463